=== PATIENT | female | born 1945 | race Caucasian/White ===

== ENCOUNTER → 2016-12-17 | Outpatient (CLI) | payer MEDICARE ==
--- NOTE | 2016-12-17 10:59 | XR ---
EXAMINATION TYPE: XR chest 2V DATE OF EXAM: 12/17/2016 10:52 AM COMPARISON: March 11, 2010 HISTORY: Shortness of breath TECHNIQUE: Frontal and lateral views of the chest are obtained. FINDINGS: Scattered senescent parenchymal changes noted. Hyperinflation compatible with COPD. No evidence for infiltrate. No evidence for atelectasis. Heart size is stable. Mediastinal structures are stable and grossly unremarkable. No evidence for hilar prominence. Degenerative changes dorsal spine. IMPRESSION: 1. No evidence for acute pulmonary disease.
== END | disposition home or self-care (01) ==
LOC: RADXRMAIN 10:36
PROVIDERS: ATTEND Internal Medicine Pulmonary Disease
DX: R06.02 Shortness of breath (principal); R05 Cough
CPT/HCPCS: 71020

== ENCOUNTER → 2016-12-24 | Outpatient (CLI) | payer MEDICARE ==
[2016-12-24 13:23] LABS: Anion Gap 14 mmol/L; Blood Urea Nitrogen 15 mg/dL (7-17); Calcium 9.8 mg/dL (8.4-10.2); Carbon Dioxide 23 mmol/L (22-30); Chloride 109 mmol/L (98-107); Glucose 111 mg/dL (74-99); Non-African American GFR(MDRD) 52 (>60 ml/min/1.73 sqM); Potassium 4.6 mmol/L (3.5-5.1); Sodium 146 mmol/L (137-145)
[2016-12-24 15:37] LABS: 24-hr Urine Specific Gravity 1.007 (1.001-1.035)
== END | disposition home or self-care (01) ==
LOC: LABWHC1 12:10
PROVIDERS: ATTEND Family Medicine
DX: N18.9 Chronic kidney disease, unspecified (principal)
CPT/HCPCS: 36415; 80048; 81050; 82575; 84156

== ENCOUNTER → 2017-02-26 | Outpatient (CLI) | payer MEDICARE ==
--- NOTE | 2017-02-26 11:22 | CT ---
EXAMINATION TYPE: CT chest wo con DATE OF EXAM: 02/26/2017 COMPARISON: 01/04/2013 HISTORY: SOB CT DLP: 365.[address] of the chest was performed with lung and mediastinal window settings submitted. The la ck of contrast limits evaluation of the vascular, mediastinal and parenchymal structures including th e upper abdomen. LUNGS: The lungs are clear and free of infiltrate. No atelectasis. No pulmonary nodule or mass is de tected. No pleural effusion. Hyperinflation compatible with COPD. Upper lobe emphysematous changes. Mild scattered subpleural fibrosis at the lung bases. MEDIASTINUM/RIAN: Thoracic aorta is of normal caliber with limited evaluation given lack of contrast . The heart is not enlarged. No evidence for mediastinal mass. No lymph nodes greater than 1cm. UPPER ABDOMEN: No significant abnormality is seen. OTHER: No significant other abnormality. IMPRESSION: 1. Stable chest with emphysematous changes noted as well as mild basilar subpleural fibrosis.
== END | disposition home or self-care (01) ==
LOC: RADCTMAIN 09:43
PROVIDERS: ATTEND Internal Medicine Pulmonary Disease
DX: J43.9 Emphysema, unspecified (principal); J84.10 Pulmonary fibrosis, unspecified
CPT/HCPCS: 71250

== ENCOUNTER → 2018-11-08 | Outpatient (CLI) | payer MEDICARE ==
[2018-11-08 18:36] LABS: Calcium 9.8 mg/dL (8.7-10.3); Potassium 4.4 mmol/L (3.5-5.5)
== END | disposition home or self-care (01) ==
LOC: LABWHC1 10:42
PROVIDERS: ATTEND Internal Medicine Interventional Cardiology
DX: I34.0 Nonrheumatic mitral (valve) insufficiency (principal)
CPT/HCPCS: 36415; 80048

== ENCOUNTER → 2018-11-08 | Outpatient (CLI) | payer MEDICARE ==
[2018-11-08 11:39] LABS: HCT 43.1 % (34.0-46.0); HGB 14.1 gm/dL (11.4-16.0); MCH 31.5 pg (25.0-35.0); MCHC 32.7 g/dL (31.0-37.0); MCV 96.3 fL (80.0-100.0); Mean Platelet Volume 9.2; Platelet Count 214 k/uL (150-450); RBC 4.47 m/uL (3.80-5.40); RDW 14.8 % (11.5-15.5); WBC 8.5 k/uL (3.8-10.6)
== END | disposition home or self-care (01) ==
LOC: LABPAT 10:39
PROVIDERS: ATTEND Internal Medicine Interventional Cardiology
DX: Z01.812 Encounter for preprocedural laboratory examination (principal); I34.0 Nonrheumatic mitral (valve) insufficiency; I48.1 Persistent atrial fibrillation; I10 Essential (primary) hypertension
CPT/HCPCS: 36415; 85027

== ENCOUNTER 2018-11-23 06:19 | Day surgery (SDC) | payer MEDICARE ==
[2018-11-09 14:29] VITALS: BMI 26.7
[~2018-11-23 06:19] MED LIST: ALPRAZolam 0.25 MG TAB PO PRN; ALPRAZolam 0.5 MG TAB PO PRN; NITROGLYCERIN SL TABS 0.4 MG TAB SUBLINGUAL PRN; SODIUM CHLORIDE 0.9% 1,000 ML in EMPTY BAG 1 BAG IV ONE
[2018-11-23] MEDS ORDERED: ASPIRIN 325 MG TAB PO ONE (07:00)
[2018-11-23] MEDS ORDERED: ATORVASTATIN 80 MG TAB PO ONE (07:00)
[2018-11-23 07:04] VITALS: TEMP 98.3
[2018-11-23] MEDS ORDERED: IV FLUID CONTINUATION 950 ML IV ONE (07:17)
[2018-11-23] MEDS ORDERED: BENZOCAINE SPRAY 1 CAN MUCOUS MEM ONE (07:25)
[2018-11-23] MEDS ORDERED: MIDAZOLAM 2 MG/2 ML VIAL IV ONE ×2 (07:27→07:30)
[2018-11-23] MEDS ORDERED: fentaNYL (PF) 50 MCG/ML 2 ML AMP IV ONE (07:28)
[2018-11-23 07:36] VITALS: PULSE 113
[2018-11-23] MEDS ORDERED: IV FLUID CONTINUATION 850 ML IV ONE (07:46)
[2018-11-23] MEDS ORDERED: LIDOCAINE 1% INJ 10MG/ML (20 ML MDV) SQ ONE (07:55)
--- NOTE | 2018-11-23 08:22 | ECHOT ---
TRANSESOPHAGEAL ECHOCARDIOGRAM INDICATION: Evaluation of mitral valve. PROCEDURE: After explaining the procedure to the patient, its risks and the complications, her blood pressure, heart rate, O2 saturation was monitored. The throat was sprayed with Cetacaine. She received 3 mg intravenous Versed, 50 mcg intravenous fentanyl. The probe was introduced into the esophagus without difficulty. Images were obtained. Following that, the probe was removed. There was no immediate complication. FINDINGS: Biatrial enlargement was noted. Spontaneous contrast was noted. Left atrial appendage is normal. Left ventricular size and systolic function normal. The aortic valve is a tricuspid valve appears to be normal. Mitral valve is mildly thickened. Tricuspid valve is normal. A pulmonic valve is normal. Descending thoracic aorta appears to be normal. Contrast bubble study revealed no shunting across the interatrial septum. There was no pericardial effusion. Doppler pulse wave and color Doppler obtained and revealed a moderate mitral with moderate to severe tricuspid regurgitation. The estimated right ventricular systolic pressure of 49 mmHg consistent with moderate pulmonary hypertension. There was trace of pulmonic regurgitation and evidence of patent foramen ovale with [id number] shunting was noted. CONCLUSION: 1. Biatrial enlargement with spontaneous contrast and normal appearance of the left atrial appendage. 2. Normal left ventricular size and systolic function. 3. Mild thickening of the mitral valve leaflets with moderate central mitral regurgitation. 4. Moderate to severe tricuspid regurgitation with moderate pulmonary hypertension. 5. Trace pulmonic regurgitation. 6. Patent foramen ovale with [id number] shunting. 7. No pericardial effusion. MMODL / IJN: [id number] /
[2018-11-23 08:25] LABS: O2 Sat Blood Gas 58.7 %
[2018-11-23 08:28] LABS: O2 Sat Blood Gas 61.4 %
[2018-11-23] MEDS ORDERED: IOPAMIDOL-370 100ML BTL INJ ONE (08:29)
[2018-11-23 08:30] LABS: O2 Sat Blood Gas 90.7 %
[2018-11-23] MEDS ORDERED: RX INFO: IV CONTRAST WAS GIVEN 1 EACH MISC MISCELLANE PRN (08:33)
[2018-11-23] MEDS ORDERED: METOPROLOL TARTRATE 25 MG TAB PO STA (08:44)
[2018-11-23] MEDS ORDERED: SODIUM CHLORIDE 0.9% 1,000 ML IV SCH (08:45)
--- NOTE | 2018-11-23 09:08 | CC ---
CARDIAC CATHETERIZATION REPORT Mrs. Hinton is a 73-year-old female with known history of hypertension, hyperlipidemia, who has been complaining of progressive dyspnea and underwent an echocardiogram revealed moderate to severe mitral regurgitation with severe tricuspid regurgitation. In view of that, recommendation was made regarding cardiac catheterization. The procedure as well as the risks and the complications were discussed with the patient who is in full understanding and agreement. PROCEDURE: Patient was brought to the field laborer in a fasting semi-sedated state after receiving fentanyl and Benadryl and achieving moderate conscious sedated state. Using Xylocaine anesthesia in the Seldinger technique, a 6-Nicaraguan sheath was introduced in the right femoral artery an 8-[place]icar[place]uan sheath in the right femoral vein. Right heart catheterization was performed using Hull-Sena catheter. Multiple pressures and samples were obtained. Cardiac output by thermodilution was calculated. Following that, selective right and left angiography was performed using 6-[place]icar[place]uan 4 bend right and left Jack catheter. Multiple views of the coronary artery including hemiaxial views obtained. Following that, a 6-[place]uan tight pigtail catheter introduced in the left ventricle and a 30-degree LIMON view of the left ventricle was obtained. Following the catheter and sheaths were removed. Hemostasis was obtained with compression of the right groin. There were no immediate complications. Patient is returned to her room in stable condition. FINDINGS: HEMODYNAMICS: Right atrial saturation 61%, pulmonary artery saturation 59%, femoral artery saturation 91%. Cardiac output by Jean-Claude 3.4 L/minute and by thermodilution 4.4 L/minute. Pulmonary artery systolic pressure of 48 with a diastolic of 18 and a mean of 28 mmHg. Her right ventricle systolic pressure of 50 with an end-diastolic of 5. Right atrial V-wave 5 with a mean of 4 mmHg. There was no gradient across the aortic valve. The left ventricular end-diastolic pressure was 12 to 16 mmHg. CORONARIES: LEFT MAIN: This is a short size vessel, bifurcating left circumflex, left anterior descending artery. Left main coronary artery has no evidence of high-grade stenosis. LEFT ANTERIOR DESCENDING ARTERY: This is a large-sized vessel tapers down distal third, giving rise to 2 diagonal branches. Left anterior descending artery as well as branches have no evidence of obstructive coronary artery disease. LEFT CIRCUMFLEX. This is a nondominant vessel giving rise to 3 obtuse marginal branches. The second and third one are large in caliber. The left circumflex and its branches have no evidence of obstructive coronary artery disease. RIGHT CORONARY ARTERY: This is a large dominant vessel bifurcating distally to PDA and posterolateral segment and branches. The right coronary artery in the mid segment has a 10% plaque. The rest of the vessel has no high-grade stenosis. LEFT VENTRICULOGRAM: Left ventriculogram was performed in 30-degree LIMON view and revealed 2 to 3+ mitral regurgitation, worsened by arrhythmia. CONCLUSION: 1. Minimal intimal disease involving the mid right coronary artery. 2. Normal left ventricular size and systolic function with 2 to 3+ mitral regurgitation. 3. Mild to moderate pulmonary hypertension. RECOMMENDATION: In view of finding anatomy, I recommend to continue the present medical regimen at this time and close followup of her mitral valve. Those findings and recommendation were discussed with the patient and her family and they are in full understanding and agreement. Duration of procedure was 33 minutes. EMILY / MAURICE: [id number] /
[2018-11-23 14:27] VITALS: RESP 20
[2018-11-23 16:24] VITALS: BP 162/89
[2018-11-24] MEDS ORDERED: ALBUTEROL NEBULIZED 2.5 MG/3 ML INHALATION SCH (08:00)
[2018-11-24] MEDS ORDERED: ATORVASTATIN 40 MG TAB PO SCH (09:00)
[2018-11-24] MEDS ORDERED: METOPROLOL TARTRATE 25 MG TAB PO SCH (09:00)
[2018-11-24] MEDS ORDERED: PANTOPRAZOLE 40 MG TABLET PO SCH (09:00)
[2018-11-24] MEDS ORDERED: FUROSEMIDE 20 MG TAB PO SCH (09:00)
== END 2018-11-23 16:04 | disposition home or self-care (01) ==
LOC: CATHCVL 06:19
PROVIDERS: ATTEND Internal Medicine Interventional Cardiology
DX: I08.1 Rheumatic disorders of both mitral and tricuspid valves (principal); I48.1 Persistent atrial fibrillation; I25.10 Atherosclerotic heart disease of native coronary artery without angina pectoris; I27.20 Pulmonary hypertension, unspecified; Q21.1 Atrial septal defect; E78.5 Hyperlipidemia, unspecified; I10 Essential (primary) hypertension; Z72.0 Tobacco use; Z79.899 Other long term (current) drug therapy; Z79.01 Long term (current) use of anticoagulants
CPT/HCPCS: 93312; 93320; 93325; 93456; 85018; 82810; C1769 ×2; C1894 ×2; J2250; J2001; J3010; Q9967; 93460

== ENCOUNTER → 2019-04-11 | Outpatient (CLI) | payer MEDICARE ==
[2019-04-11 20:06] LABS: African American GFR (CKD) 51.2 (60.0-200.0)
== END ==
LOC: LABWHC1 12:07
PROVIDERS: ATTEND Family Medicine
DX: Z01.812 Encounter for preprocedural laboratory examination (principal)
CPT/HCPCS: 36415; 82565; 84520

== ENCOUNTER → 2019-04-14 | Outpatient (CLI) | payer MEDICARE | END | disposition home or self-care (01) | LOC: RADCTMAIN 13:16 | PROVIDERS: ATTEND Family Medicine | DX: Z53.9 Procedure and treatment not carried out, unspecified reason (principal) ==

== ENCOUNTER → 2019-04-21 | Outpatient (CLI) | payer MEDICARE ==
--- NOTE | 2019-04-22 22:57 | CT ---
EXAMINATION TYPE: CT facial bones wo con DATE OF EXAM: 04/21/2019 COMPARISON: 01/12/2011 HISTORY: 74-year-old female unspecified Chronic sinusitis CT DLP: 599 mGycm Automated exposure control for dose reduction was used. TECHNIQUE: Noncontrast axial views of the paranasal sinuses were obtained. Coronal reconstructions pe rformed. FINDINGS: Mucosal retention cyst within the floors of the maxillary sinuses with mild additional scattered muco nanci thickening. Prior resection changes extending into the left nasal cavity and medial wall of the left maxillary si nus as well as additional resection extending up into the left ethmoid air cells. There is similar th e his sense/resection or absence of the left medial orbital wall with stable bulging of intervertebra l contents into the left ethmoid air cells. Prior bifrontal craniotomy. Moderate mucosal thickening left sphenoid sinus and near complete opacification persisting within the right frontal sinus. There is no air-fluid level. There is some reactive yeny- osteogenesis involving the left-sided paranasal sinus ewing, similar to p rior exam. Leftward bowing of the nasal septum. Stable encephalomalacia along the anterior paramedian floor of the frontal lobes. Mastoid air cells and middle ear cavities are well pneumatized. Reformatted images confirm above findings. IMPRESSION: 1. Extensive postsurgical changes redemonstrated along the frontal region with bifrontal craniotomies and underlying encephalomalacia. 2. Additional postsurgical change involving the left-sided paranasal sinuses with prior left ethmoide ctomy eliminating the roof and lateral wall of left ethmoid sinus. 2. Stable mild to moderate chronic maxillary sinus and moderate chronic left sphenoid sinus disease. Continued near complete opacification of the right frontal sinus. No significant change from prior.
== END | disposition home or self-care (01) ==
LOC: RADCTMAIN 09:14
PROVIDERS: ATTEND Family Medicine
DX: G93.89 Other specified disorders of brain (principal); J32.0 Chronic maxillary sinusitis; J32.3 Chronic sphenoidal sinusitis; J34.89 Other specified disorders of nose and nasal sinuses; Z98.890 Other specified postprocedural states
CPT/HCPCS: 70486

== ENCOUNTER 2019-06-29 06:18 | Inpatient (IN) | payer MEDICARE ==
--- NOTE | 2019-06-29 06:25 | ED ---
SOB HPI <Nereida Roberts - Last Filed: 06/29/19 08:25> <Theo Boatengssayush Suárez - Last Filed: 07/02/19 04:36> <Mari Limonah Arslan - Last Filed: 07/07/19 09:54> - General Chief Complaint: Shortness of Breath Stated Complaint: DESIREE Time Seen by Provider: 06/29/19 06:25 - History of Present Illness Initial Comments: 74yo female with history of valvular disease, atrial fibrillation, HTN and HLD presenting to the ER today for cc of SOB x 3 hours. History obtained from both and patient, history limited due to patient SOB. Family is a poor historian. Patient states she has been short of breath since 3 AM. Family memb er states that yesterday patient had no complaints of chest pain or shortness of breath. He did not know any abnormal behaviors. She states she woke up at 3 AM stating she was short of breath this continued for 3 hours until he presented emergency department for further evaluation. Upon arrival patient is significantly SOB, profound hypoxia and elevation of HR with some pallor/cyanosis noted on gross inspection. Patient is alert and oriented x3 and answering questions appropriately. (Nereida Roberts) - Related Data Home Medications Medication Instructions Recorded Confirmed Atorvastatin Calcium [Lipitor] 40 mg PO DAILY 01/22/16 06/29/19 Pantoprazole [Protonix] 40 mg PO DAILY 01/22/16 06/29/19 Apixaban [Eliquis] 5 mg PO BID 11/09/18 06/29/19 Metoprolol Tartrate [Lopressor] 25 mg PO BID 06/29/19 06/29/19 Sodium Chloride [Saline Nasal 1 spray EA NOSTRIL DAILY PRN 06/29/19 06/29/19 [place]] Previous Rx's Medication Instructions Recorded Albuterol Sulfate [Proair Hfa] 2 puff INHALATION DAILY PRN #0 07/04/19 Furosemide [Lasix] 20 mg PO DAILY #14 tab 07/04/19 Ipratropium-Albuterol Nebulize 3 ml INHALATION RT-QID #120 07/04/19 [Duoneb 0.5 mg-3 mg/3 ml Soln] ampul.neb Allergies Allergy/AdvReac Type Severity Reaction Status Date / Time No Known Allergies Allergy Verified 06/29/19 07:25 Review of Systems ROS Other: All systems not noted in ROS Statement are negative. <Nereida Roberts Carmen - Last Filed: 06/29/19 08:25> ROS Other: All systems not noted in ROS Statement are negative. <Nathalie Boateng P - Last Filed: 07/02/19 04:36> ROS Other: All systems not noted in ROS Statement are negative. <RemigioMaricruz peitt Arslan - Last Filed: 07/07/19 09:54> ROS Statement: Those systems with pertinent positive or pertinent negative responses have been documented in the HPI. Past Medical History Past Medical History: GERD/Reflux, Hyperlipidemia, Hypertension Additional Past Medical History / Comment(s): Irreg HR,heart murmur,SOB History of Any Multi-Drug Resistant Organisms: None Reported Past Surgical History: Hysterectomy, Tonsillectomy Additional Past Surgical History / Comment(s): removal sinus tumor,dixon bunnion,trigger fingers,dixon elbows pair Past Anesthesia/Blood Transfusion Reactions: No Reported Reaction Additional Past Anesthesia/Blood Transfusion Reaction / Comment(s): no hx blood transfusion Smoking Status: Former smoker - Past Family History Mother Family Medical History: Cancer Additional Family Medical History / Comment(s): bowel Father Additional Family Medical History / Comment(s): emphysema <Nereida Roberts Carmen - Last Filed: 06/29/19 08:25> - Past Family History Mother Family Medical History: Cancer Additional Family Medical History / Comment(s): bowel Father Family Medical History: COPD Additional Family Medical History / Comment(s): emphysema Brother(s) Family Medical History: Cancer Additional Family Medical History / Comment(s): Bowel cancer. <Cristina Boatengica P - Last Filed: 07/02/19 04:36> General Exam <Nereida Roberts L - Last Filed: 06/29/19 08:25> - General Exam Comments Initial Comments: General: The patient is awake and alert, in respiratory distress. Eye: +3 mm pupils are equal, round and reactive to light, extra-ocular movements are intact. No nystagmus. There is normal conjunctiva bilaterally. No signs of icterus. Ears, nose, mouth and throat: There are moist mucous membranes and no oral lesions. Neck: The neck is supple, there is no tenderness . JVD noted. B/l lower extremity edema., pitting +1 Cardiovascular: There is increased pulse rate and rhythm. No murmur, rub or gallop is appreciated. Respiratory: labored breathing with cyanosis, abdominal breathing and retraction. Rales. No wheezing, stridor or rhonchi noted. Gastrointestinal: Radial pulses equal bilaterally 2+. Neurological: A&O x 3. CN II-XII intact, There are no obvious motor or sensory deficits. Coordination appears grossly intact. Speech is normal. Skin: Skin is warm, dry, pale. No lesions noted. Psychiatric: Anxious (Nereida Roberts) Course <Nereida Roberts - Last Filed: 06/29/19 08:25> Vital Signs 06/29/19 06/29/19 06/29/19 06:25 06:27 06:34 Temperature 99.9 F H Pulse Rate 116 H 125 H Respiratory 28 H 30 H 30 H Rate Blood Pressure 226/116 219/106 O2 Sat by Pulse 52 L Oximetry 06/29/19 06/29/19 06/29/19 06:40 06:43 06:53 Temperature Pulse Rate 114 H 110 H 111 H Respiratory 32 H 24 20 Rate Blood Pressure 186/107 180/105 159/90 O2 Sat by Pulse 94 L 100 98 Oximetry 06/29/19 09:02 Temperature Pulse Rate 100 Respiratory 22 Rate Blood Pressure 135/89 O2 Sat by Pulse 96 Oximetry - Reevaluation(s) Reevaluation #1: Patient intially evaluated, significant DESIREE, notified attending Dr. Boateng who evaluated patient at bedside. BiPap ordered, portable chest. Nurses at besides obtaining IV access and EKG. 06/29/19 06:24 (Nereida Roberts) Reevaluation #2: After 2 sublingual nitroglycerin tablets, patient appears in less distress. Respiratory at beside applying bipap. 06/29/19 06:43 (Nereida Roberts) Reevaluation #3: During BiPap patient able to speak complete sentence more thorough history obtained. Patient denies CP, back pain, known leg swelling in the past week or today. SOB patient states chronic increasing past 2-3 days but peaked at 3AM. States compliant with her anticoagulation therapy 06/29/19 06:47 (Nereida Roberts) Medical Decision Making - Lab Data Result diagrams: 06/29/19 06:29 06/29/19 06:29 <Nereida Roberts - Last Filed: 06/29/19 08:25> - Lab Data Result diagrams: 06/30/19 15:50 07/01/19 05:39 <Nathalie Boateng - Last Filed: 07/02/19 04:36> - Lab Data Result diagrams: 07/02/19 05:55 07/02/19 05:55 <Maricruz Limon - Last Filed: 07/07/19 09:54> - Medical Decision Making 74yo female presenting today for shortness of breath since 3 AM history of atrial fibrillation profound hypoxia and hypertension upon arrival. Concern for flash pulmonary edema BiPAP initiated. Chest x-ray consistent with moderate pulmonary edema. Patient had significant improvement in work of breathing after 2 sublingual nitrates prior to the BiPAP initiation. After BiPAP patient work of breathing normalized, she appears in less distress, pink in color. Didn't im provement in hypoxia and blood pressure. At this time we'll admit patient on BiPAP with when necessary nitroglycerin and cardiology consultation. Patient is agreeable to admission admitting provider accepted admission after speaking wtih Dr. Limon although initial management was performed with Dr. Boateng. (Nereida Roberts) I personally saw and evaluated the patient immediately upon arrival to the emergency department. Patient was in moderate respiratory distress, was tachypneic, tachycardic, profoundly hypoxic with oxygen saturations in the 50s with a good waveform. Physical exam is concerning for flash pulmonary edema. I agreed with PAs plan for workup and treatment with BiPAP and nitro. I reevaluated the patient after she received nitro and had been on BiPAP for approximately 10 minutes. At that time the patient's color had improved, respiratory rate decreased, tachycardia decreased, patient much more comfortable and with no complaints. I agree with plan for admission (Nathalie Boateng) I discussed the case with the admitting physician who accepted admission of the patient. (Maricruz Limon) - Lab Data Lab Results 06/29/19 06/29/19 06/29/19 Range/Units 06:29 06:29 06:29 WBC 21.6 H (3.8-10.6) k/uL RBC 4.50 (3.80-5.40) m/uL Hgb 15.0 (11.4-16.0) gm/dL Hct 45.0 (34.0-46.0) % MCV 99.9 (80.0-100.0) fL MCH 33.3 (25.0-35.0) pg MCHC 33.3 (31.0-37.0) g/dL RDW 14.7 (11.5-15.5) % Plt Count 261 (150-450) k/uL Neutrophils % 89 % Lymphocytes % 6 % Monocytes % 2 % Eosinophils % 2 % Basophils % 1 % Neutrophils # 19.2 H (1.3-7.7) k/uL Lymphocytes # 1.4 (1.0-4.8) k/uL Monocytes # 0.4 (0-1.0) k/uL Eosinophils # 0.3 (0-0.7) k/uL Basophils # 0.2 (0-0.2) k/uL Macrocytosis Slight PT (9.0-12.0) sec INR (<1.2) APTT (22.0-30.0) sec D-Dimer (<0.60) mg/L FEU Sodium 146 H (137-145) mmol/L Potassium 4.1 (3.5-5.1) mmol/L Chloride 112 H (98-107) mmol/L Carbon Dioxide 17 L (22-30) mmol/L Anion Gap 17 mmol/L BUN 17 (7-17) mg/dL Creatinine 1.19 H (0.52-1.04) mg/dL Est GFR (CKD-EPI)AfAm 51 (>60 ml/min/1.73 sqM) Est GFR (CKD-EPI)NonAf 44 (>60 ml/min/1.73 sqM) Glucose 173 H (74-99) mg/dL Lactic Ac Sepsis Rflx Plasma Lactic Acid Bony (0.7-2.0) mmol/L Calcium 9.5 (8.4-10.2) mg/dL Magnesium 1.8 (1.6-2.3) mg/dL Total Bilirubin 1.4 H (0.2-1.3) mg/dL AST 32 (14-36) U/L ALT 43 (9-52) U/L Alkaline Phosphatase 79 (38-126) U/L Troponin I (0.000-0.034) ng/mL NT-Pro-B Natriuret Pep 1540 pg/mL Total Protein 7.5 (6.3-8.2) g/dL Albumin 4.7 (3.5-5.0) g/dL Procalcitonin (0.02-0.09) ng/mL Influenza Type A RNA (Not Detectd) Influenza Type B (PCR) (Not Detectd) 06/29/19 06/29/19 06/29/19 Range/Units 06:29 06:29 06:29 WBC (3.8-10.6) k/uL RBC (3.80-5.40) m/uL Hgb (11.4-16.0) gm/dL Hct (34.0-46.0) % MCV (80.0-100.0) fL MCH (25.0-35.0) pg MCHC (31.0-37.0) g/dL RDW (11.5-15.5) % Plt Count (150-450) k/uL Neutrophils % % Lymphocytes % % Monocytes % % Eosinophils % % Basophils % % Neutrophils # (1.3-7.7) k/uL Lymphocytes # (1.0-4.8) k/uL Monocytes # (0-1.0) k/uL Eosinophils # (0-0.7) k/uL Basophils # (0-0.2) k/uL Macrocytosis PT 11.0 (9.0-12.0) sec INR 1.0 (<1.2) APTT 22.7 (22.0-30.0) sec D-Dimer 0.51 (<0.60) mg/L FEU Sodium (137-145) mmol/L Potassium (3.5-5.1) mmol/L Chloride (98-107) mmol/L Carbon Dioxide (22-30) mmol/L Anion Gap mmol/L BUN (7-17) mg/dL Creatinine (0.52-1.04) mg/dL Est GFR (CKD-EPI)AfAm (>60 ml/min/1.73 sqM) Est GFR (CKD-EPI)NonAf (>60 ml/min/1.73 sqM) Glucose (74-99) mg/dL Lactic Ac Sepsis Rflx Plasma Lactic Acid Bony 4.6 H* (0.7-2.0) mmol/L Calcium (8.4-10.2) mg/dL Magnesium (1.6-2.3) mg/dL Total Bilirubin (0.2-1.3) mg/dL AST (14-36) U/L ALT (9-52) U/L Alkaline Phosphatase (38-126) U/L Troponin I <0.012 (0.000-0.034) ng/mL NT-Pro-B Natriuret Pep pg/mL Total Protein (6.3-8.2) g/dL Albumin (3.5-5.0) g/dL Procalcitonin (0.02-0.09) ng/mL Influenza Type A RNA (Not Detectd) Influenza Type B (PCR) (Not Detectd) 06/29/19 06/29/19 06/29/19 Range/Units 06:29 07:30 08:20 WBC (3.8-10.6) k/uL RBC (3.80-5.40) m/uL Hgb (11.4-16.0) gm/dL Hct (34.0-46.0) % MCV (80.0-100.0) fL MCH (25.0-35.0) pg MCHC (31.0-37.0) g/dL RDW (11.5-15.5) % Plt Count (150-450) k/uL Neutrophils % % Lymphocytes % % Monocytes % % Eosinophils % % Basophils % % Neutrophils # (1.3-7.7) k/uL Lymphocytes # (1.0-4.8) k/uL Monocytes # (0-1.0) k/uL Eosinophils # (0-0.7) k/uL Basophils # (0-0.2) k/uL Macrocytosis PT (9.0-12.0) sec INR (<1.2) APTT (22.0-30.0) sec D-Dimer (<0.60) mg/L FEU Sodium (137-145) mmol/L Potassium (3.5-5.1) mmol/L Chloride (98-107) mmol/L Carbon Dioxide (22-30) mmol/L Anion Gap mmol/L BUN (7-17) mg/dL Creatinine (0.52-1.04) mg/dL Est GFR (CKD-EPI)AfAm (>60 ml/min/1.73 sqM) Est GFR (CKD-EPI)NonAf (>60 ml/min/1.73 sqM) Glucose (74-99) mg/dL Lactic Ac Sepsis Rflx Y Plasma Lactic Acid Bony (0.7-2.0) mmol/L Calcium (8.4-10.2) mg/dL Magnesium (1.6-2.3) mg/dL Total Bilirubin (0.2-1.3) mg/dL AST (14-36) U/L ALT (9-52) U/L Alkaline Phosphatase (38-126) U/L Troponin I (0.000-0.034) ng/mL NT-Pro-B Natriuret Pep pg/mL Total Protein (6.3-8.2) g/dL Albumin (3.5-5.0) g/dL Procalcitonin 0.04 (0.02-0.09) ng/mL Influenza Type A RNA Not Detected (Not Detectd) Influenza Type B (PCR) Not Detected (Not Detectd) - EKG Data EKG Comments: Ventricular rate 97 bpm, QRS duration 78 ms, QT/QTC 358/[address] elevation or depression. Rhythm atrial fibrillation. Nonspecific T-wave abnormality. EKG personally interpreted and reviewed by attending provider (Nereida Roberts) Disposition Is patient prescribed a controlled substance at d/c from ED?: No Time of Disposition: 08:20 Decision to Admit Reason: Admit from EC Decision Date: 06/29/19 Decision Time: 08:21 <Nereida Roberts - Last Filed: 06/29/19 08:25> <Nathalie Boateng - Last Filed: 07/02/19 04:36> <Maricruz Limon - Last Filed: 07/07/19 09:54> Clinical Impression: Pulmonary edema, Hypertensive emergency, History of atrial fibrillation, Elevated brain natriuretic peptide (BNP) level Disposition: ADMITTED IP TO THIS HOSP Condition: Stable
[2019-06-29] MEDS: NITROGLYCERIN SL TABS 0.4 MG TAB SUBLINGUAL PRN ×3 (06:31→06:41)
[2019-06-29 06:48] LABS: Basophils # (A) 0.2 k/uL (0-0.2); Basophils % (A) 1 %; Eosinophils # (A) 0.3 k/uL (0-0.7); Eosinophils % (A) 2 %; Lymphocytes # (A) 1.4 k/uL (1.0-4.8); Lymphocytes % (A) 6 %; MCH 33.3 pg (25.0-35.0); MCHC 33.3 g/dL (31.0-37.0); MCV 99.9 fL (80.0-100.0); Macrocytosis Slight; Mean Platelet Volume 8.2; Monocytes # (A) 0.4 k/uL (0-1.0); Monocytes % (A) 2 %; Neutrophils # (A) 19.2 k/uL (1.3-7.7); Neutrophils % (A) 89 %; Platelet Count 261 k/uL (150-450); RDW 14.7 % (11.5-15.5); WBC 21.6 k/uL (3.8-10.6)
--- NOTE | 2019-06-29 06:49 | XR ---
EXAMINATION TYPE: XR chest 1V portable DATE OF EXAM: 06/29/2019 COMPARISON: 12/17/2016 HISTORY: Cough TECHNIQUE: Single frontal view of the chest is obtained. FINDINGS: There is moderate pulmonary edema. There is no pleural effusion. There are chest leads. He art is top normal in size. IMPRESSION: There is moderate pulmonary edema that is nonspecific and could relate to RDS or acute h eart failure. This is a change compared to old exam.
[2019-06-29 06:56] LABS: Albumin 4.7 g/dL (3.5-5.0); Calcium 9.5 mg/dL (8.4-10.2); Magnesium 1.8 mg/dL (1.6-2.3); Potassium 4.1 mmol/L (3.5-5.1); Total Bilirubin 1.4 mg/dL (0.2-1.3); Total Protein 7.5 g/dL (6.3-8.2)
[2019-06-29 07:09] LABS: D-Dimer 0.51 mg/L FEU (<0.60); Partial Thromboplastin Time 22.7 sec (22.0-30.0)
[2019-06-29] MEDS ORDERED: NITROGLYCERIN SL TABS 0.4 MG TAB SUBLINGUAL PRN (08:21)
[2019-06-29 09:09] VITALS: BMI 28.9
[2019-06-29] MEDS ORDERED: INFLUENZA VACCINE (6 MOS+) 60 MCG/0.5 ML SYRINGE IM ONE (09:12)
--- NOTE | 2019-06-29 15:13 | P.CRDCN ---
History of Present Illness History of present illness: HISTORY OF PRESENTING ILLNESS This is a pleasant 74-year-old female past medical history significant for chronic persistent atrial fibrillation on long-term anticoagulation, valvul ar heart disease, pulmonary hypertension, hypertension, nonrheumatic mitral regurgitation, patent foramen ovale and dyslipidemia. She presented with is of breath. She follows in the office with Dr. Goldman. We have been asked to see him in consultation for flash pulmonary edema. She is seen and examined resting comfortably in bed in no acute distress. She states she went to sleep last night feeling in normal health. Then woke up at 0300 to use the restroom and felt acutely short of breath. She had no chest pain, dizziness or palpitations. She attempted to manage at home for a few hours however her breathing continued to worsen. On arrival to ED She was noted to be quite hypoxic, tachycardic, low grade temperature, hypertensive and tachypneic. Bipap was initiated and she started to slowly improve. Blood pressure on arrival was 226/116, heart rate 116. Blood pressure has normalized although she remains mildly tachycardic. Pt also states that earlier in the week she feels as though she had aspirated some tea. She states she coughed significantly at the time and has been mildly coughi ng since that time. She did receive one dose of Rocephin in the ED. DIAGNOSTICS EKG reveals atrial fibrillation heart rate 97 with nonspecific changes.. Chest xray moderate pulmonary edema.. Laboratory reviewed, WBC 21.6, hemoglobin 15, platelets 261, d-dimer 0.51, sodium 146, potassium 4.1, creatinine 1.19, lactic acid on admission 4. 6 repeat 1.6, magnesium 1.8, cardiac enzymes negative 2, NT proBNP 1540. Current cardiac medications include Eliquis 5 mg twice a day, atorvastatin 40 mg daily, Lopressor 25 mg twice a day. Most recent cardiac catheterization performed November 2018 revealed 2-3+ mitral regurgitation, normal LV systolic function and minimal nonobstructive disease of the mid RCA. Transesophageal echocardiogram obtained in November 2018 revealed moderate MR, patent foramen ovale, moderate to severe tricuspid regurgitation and moderate pulmonary hypertension. Most recent echocardiogram obtained in the office 05/15/2019 revealed preserved LV systolic function with ejection fraction 50%, moderate MR, moderate to severe TR and pulmonary hypertension with an RVSP of 69 mmHg. REVIEW OF SYSTEMS At the time of my exam: CONSTITUTIONAL: Denies fever or chills. CARDIOVASCULAR: Denies chest pain, shortness of breath, orthopnea, PND or palpitations. RESPIRATORY: Complains of cough. GASTROINTESTINAL: Denies abdominal pain, diarrhea, constipation, nausea or vomiting. MUSCULOSKELETAL: Denies myalgias. NEUROLOGIC: Denies numbness, tingling or weakness. ENDOCRINE: Denies fatigue, weight change, polydipsia or polyurina. GENITOURINARY: Denies burning, hematuria or urgency with micturation. HEMATOLOGIC: Denies history of anemia or bleeding. PHYSICAL EXAMINATION Blood pressure 138/77 heart rate on 06 afebrile and maintaining oxygen saturaiton on nasal cannula. CONSTITUTIONAL: No apparent distress. HEENT: Head is normocephalic. Pupils are equal, round. Sclerae anicteric. Mucous membranes of the mouth are moist. No JVD. No carotid bruit. CHEST EXAMINATION: Course sounds noted on the left, clear on the right. No chest wall tenderness is noted on palpation or with deep breathing. HEART EXAMINATION: Irregular rate and rhythm. S1, S2 heard. Systolic ejection murmur heard at the base and the apex, no gallops or rub. ABDOMEN: Soft, nontender. Positive bowel sounds. EXTREMITIES: 2+ peripheral pulses, trace pitting bilateral lower extremity edema and no calf tenderness. NEUROLOGIC EXAMINATION: Patient is awake, alert and oriented x3. ASSESSMENT Shortness of breath with pulmonary edema, improved with Bipap Leukocytosis Lactic acidosis on admission, improved Non-rheumatic mitral regurgitation Pulmonary hypertension PLAN Resume lopressor, eliquis and atorvastatin as previously ordered. Discontinue aspirin. Recent echo in the office last month has been reviewed, we will not repeat on this admission. Obtain CT chest to assess for possible underlying pneumonia given leukocytosis, low grade temperature and possible aspiration. Check procalcitonin. We will continue to follow and make recommendations accordingly. Thank you kindly for this consultation. Nurse Practitioner note has been reviewed, I agree with a documented findings and plan of care. Patient was seen and examined. Past Medical History Past Medical History: Atrial Fibrillation, GERD/Reflux, Hyperlipidemia, Hypertension, Osteoarthritis (OA) Additional Past Medical History / Comment(s): Mitral regurgitation, mild to mode rate pulmonary HTN-per past medical hx/pt unaware, SOB with exertion, small hiatal hernia, current bilateral lower leg edema, occasional low back pain, arthritis bilateral hands. 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 Past Anesthesia/Blood Transfusion Reactions: No Reported Reaction Additional Past Anesthesia/Blood Transfusion Reaction / Comment(s): no hx blood transfusion Past Psychological History: No Psychological Hx Reported Additional Psychological History / Comment(s): Pt resides with her spouse. She is independent. Smoking Status: Former smoker Past Alcohol Use History: None Reported Additional Past Alcohol Use History / Comment(s): Pt started smoking in 1958 and quit in 1977. She was a 2ppd smoker. Past Drug Use History: None Reported - Past Family History Mother Family Medical History: Cancer Additional Family Medical History / Comment(s): bowel Father Family Medical History: COPD Additional Family Medical History / Comment(s): emphysema Brother(s) Family Medical History: Cancer Additional Family Medical History / Comment(s): Bowel cancer. Medications and Allergies Home Medications Medication Instructions Recorded Confirmed Type Atorvastatin Calcium [Lipitor] 40 mg PO DAILY 01/22/16 06/29/19 History Pantoprazole [Protonix] 40 mg PO DAILY 01/22/16 06/29/19 History Albuterol Sulfate [Proair Hfa] 2 puff INHALATION DAILY 11/09/18 06/29/19 History Apixaban [Eliquis] 5 mg PO BID 11/09/18 06/29/19 History Metoprolol Tartrate [Lopressor] 25 mg PO BID 06/29/19 06/29/19 History Sodium Chloride [Saline Nasal 1 spray EA NOSTRIL DAILY PRN 06/29/19 06/29/19 History Dania] Allergies Allergy/AdvReac Type Severity Reaction Status Date / Time No Known Allergies Allergy Verified 06/29/19 07:25 Physical Exam Vitals: Vital Signs Temp Pulse Pulse Resp BP BP Pulse Ox 06/29/19 12:00 98.1 F 106 H 20 138/77 97 06/29/19 09:02 100 22 135/89 96 06/29/19 06:53 111 H 20 159/90 98 06/29/19 06:43 110 H 24 180/105 100 06/29/19 06:40 114 H 32 H 186/107 94 L 06/29/19 06:34 125 H 30 H 219/106 06/29/19 06:27 30 H 06/29/19 06:25 99.9 F H 116 H 28 H 226/116 52 L Intake and Output 06/28/19 06/29/19 06/29/19 22:59 06:59 14:59 Other: Weight 78.925 kg Results 06/29/19 06:29 06/29/19 06:29 Cardiac Enzymes 06/29/19 06/29/19 06/29/19 Range/Units 06:29 06:29 11:30 AST 32 (14-36) U/L Troponin I <0.012 <0.012 (0.000-0.034) ng/mL Coagulation 06/29/19 Range/Units 06:29 PT 11.0 (9.0-12.0) sec APTT 22.7 (22.0-30.0) sec CBC 06/29/19 Range/Units 06:29 WBC 21.6 H (3.8-10.6) k/uL RBC 4.50 (3.80-5.40) m/uL Hgb 15.0 (11.4-16.0) gm/dL Hct 45.0 (34.0-46.0) % Plt Count 261 (150-450) k/uL Comprehensive Metabolic Panel 06/29/19 Range/Units 06:29 Sodium 146 H (137-145) mmol/L Potassium 4.1 (3.5-5.1) mmol/L Chloride 112 H (98-107) mmol/L Carbon Dioxide 17 L (22-30) mmol/L BUN 17 (7-17) mg/dL Creatinine 1.19 H (0.52-1.04) mg/dL Glucose 173 H (74-99) mg/dL Calcium 9.5 (8.4-10.2) mg/dL AST 32 (14-36) U/L ALT 43 (9-52) U/L Alkaline Phosphatase 79 (38-126) U/L Total Protein 7.5 (6.3-8.2) g/dL Albumin 4.7 (3.5-5.0) g/dL Current Medications Generic Name Dose Route Start Last Admin Trade Name Freq PRN Reason Stop Dose Admin Aspirin 325 mg 06/30/19 09:00 Aspirin PO DAILY JOLENE Nitroglycerin 0.4 mg 06/29/19 08:21 Nitrostat SUBLINGUAL Q5M PRN Chest Pain Intake and Output 06/28/19 06/29/19 06/29/19 22:59 06:59 14:59 Other: Weight 78.925 kg 06/29/19 06:29 06/29/19 06:29
[2019-06-29] MEDS: METOPROLOL TARTRATE 25 MG TAB PO SCH ×2 (16:16→23:24)
[2019-06-29] MEDS: ATORVASTATIN 40 MG TAB PO SCH (16:16)
[2019-06-29] MEDS: APIXABAN 5 MG TAB PO SCH (20:48)
--- NOTE | 2019-06-29 20:59 | CT ---
EXAMINATION TYPE: CT chest wo con DATE OF EXAM: 06/29/2019 COMPARISON: 02/26/2017 HISTORY: SOB. hx of a-fib. CT DLP: 349.3 mGycm. Automated Exposure Control for Dose Reduction was Utilized. TECHNIQUE: CT scan of the thorax is performed without IV contrast. FINDINGS: Within the limitations of noncontrast CT the following observations are made: AIRWAYS: Unremarkable. LUNGS: Moderate marked emphysematous changes bilaterally. No acute pulmonary process. PLEURAL SPACES: Scant bilateral dependent pleural effusions noted. MEDIASTINUM: There is mild cardiomegaly with biatrial enlargement. No pericardial effusion. There is mild right coronary calcifications. No mediastinal mass or adenopathy. SKELETAL: No acute findings. OTHER: No additional significant abnormality is seen. IMPRESSION: 1. Mild cardiomegaly with biatrial enlargement. 2. Moderate marked emphysema. 3. Scant bilateral dependent pleural effusions.
[2019-06-29] MEDS ORDERED: METOPROLOL TARTRATE 25 MG TAB PO SCH (21:00)
[2019-06-29] MEDS ORDERED: ACETAMINOPHEN TAB 325 MG TAB PO PRN (21:57)
[2019-06-30 05:55] LABS: Cholesterol 86 mg/dL (<200); HDL Cholesterol 27 mg/dL (40-60); LDL Cholesterol,Calculated 46 mg/dL (0-99); Triglycerides 64 mg/dL (<150)
[2019-06-30] MEDS ORDERED: ASPIRIN 325 MG TAB PO SCH (09:00)
[2019-06-30] MEDS: PANTOPRAZOLE 40 MG TABLET PO SCH (09:18)
[2019-06-30] MEDS: APIXABAN 5 MG TAB PO SCH ×2 (09:18→21:54)
[2019-06-30] MEDS: ATORVASTATIN 40 MG TAB PO SCH (09:18)
[2019-06-30] MEDS: METOPROLOL TARTRATE 25 MG TAB PO SCH ×2 (09:18→21:54)
[2019-06-30] MEDS ORDERED: IPRATROPIUM-ALBUTEROL 3 ML NEB INHALATION PRN (15:04)
--- NOTE | 2019-06-30 15:38 | PN ---
PROGRESS NOTE Mrs. Hinton is a 74-year-old female with known history of chronic persistent atrial fibrillation, moderate mitral regurgitation, history of chronic obstructive lung disease, who presented to the emergency room with acute dyspnea. She is feeling better today. She has no chest pain. No dizziness. No palpitation. She has underwent a cardiac catheterization performed in November of this year that revealed mild obstructive coronary artery disease with a preserved systolic function and mild to moderate pulmonary hypertension. She denies any dizziness or palpitation. She denies any nausea at this time. She continues to be on Eliquis 5 mg twice a day, Lipitor, metoprolol 25 mg twice a day and Protonix and was started on antibiotics on presentation. PHYSICAL EXAMINATION: Blood pressure 137/70 with a heart in the 80s. LUNGS: With a few scattered wheezes, HEART: Irregular, regular S1, S2. No S3 with systolic murmur at the apex. No diastolic murmur. No rub. ABDOMEN: Soft, nontender. EXTREMITIES: No edema. CT scan of the chest revealed evidence of moderate marked emphysema. IMPRESSION: 1. Symptoms of acute dyspnea, improving. No evidence of acute ischemic event and no evidence of significant fluid overload on physical examination. 2. History of mitral regurgitation, moderate with no significant pulmonary hypertension. 3. Evidence of emphysema on the CT scan of the chest. RECOMMENDATION: From the cardiac standpoint, the patient would benefit from pulmonary evaluation regarding her lung status and depending on her progress, further recommendation will be made. MMODL / IJN: [id number] /
[2019-06-30 16:05] LABS: Basophils # (A) 0.1 k/uL (0-0.2); Basophils % (A) 1 %; Eosinophils # (A) 0.5 k/uL (0-0.7); Eosinophils % (A) 4 %; HCT 38.7 % (34.0-46.0); HGB 12.5 gm/dL (11.4-16.0); Lymphocytes # (A) 1.5 k/uL (1.0-4.8); Lymphocytes % (A) 14 %; MCH 32.3 pg (25.0-35.0); MCHC 32.4 g/dL (31.0-37.0); MCV 99.6 fL (80.0-100.0); Macrocytosis Slight; Monocytes # (A) 0.3 k/uL (0-1.0); Monocytes % (A) 3 %; Neutrophils # (A) 8.3 k/uL (1.3-7.7); Neutrophils % (A) 77 %; Platelet Count 212 k/uL (150-450); RBC 3.88 m/uL (3.80-5.40); RDW 14.7 % (11.5-15.5); WBC 10.8 k/uL (3.8-10.6)
[2019-06-30 16:17] LABS: Calcium 9.1 mg/dL (8.4-10.2); Potassium 3.9 mmol/L (3.5-5.1)
--- NOTE | 2019-06-30 17:16 | P.HPIM ---
History of Present Illness H&P Date: 06/30/19 Chief Complaint: Shortness of breath Patient is a 74-year-old female with a known history of chronic atrial fibrillation on anticoagulation with eliquis, hypertension, hyperlipidemia, mild to moderate pulmonary hypertension, mitral regurgitation and osteoarthritis and other multiple medical problems came to ER with the complaints of shortness of breath worsening since 3 AM last night. Patient woke up to use the restroom and felt shortness of breath. Patient states that about 1 week ago she had a choking episode when she was drinking tea. Since then she's been having issues with her breathing and not for normal after that. Denied any fever or chills. No cough or sputum production. Patient was hypoxic on admission and requiring BiPAP. Denied any other recent illnesses. Patient's blood pressure was 226/116 with heart rate of 116 on admission. Patient did have leukocytosis with WBC count 21.6 on admission. UA negative for infection. Patient received 1 dose of IV Rocephin in the ER.. Chest x-ray showed there is moderate pulmonary edema that is nonspecific and could be related to ordered ESR acute heart failure. There is a change compared to old exam. CT chest showed mild cardiomegaly. With the biatrial enlargement. Mild/moderate to marked emphysema. Scant bilateral dependent pleural effusions. EKG showed atrial fibrillation with heart rate of 97 Hemoglobin 15, platelets 261, d-dimer not elevated at 0.51 Lactic acid 4.6 on admission magnesium 1.8 and troponin 2 negative ProBNP 1540 Influenza negative. Review of Systems Constitutional: Patient denies any fever or chills . No generalized weakness or weight loss. Abdomen: Patient denied nausea vomiting and diarrhea and abdominal pain. Cardiovascular: Patient denies any chest pain no palpitations. Patient does have shortness of breath. Respiratory: patient denied any cough is from production. shortness of breath Neurologic: Patient denied any numbness or tingling headache. Musculoskeletal: Patient denies any complaints of joint swelling or deformity. Skin: Negative Psychiatric: Negative Endocrine: No heat or cold intolerance. No recent weight gain. Genitourinary: No dysuria or hematuria. All other 14 point ROS negative except the above Past Medical History Past Medical History: Atrial Fibrillation, GERD/Reflux, Hyperlipidemia, Hypertension, Osteoarthritis (OA) Additional Past Medical History / Comment(s): Mitral regurgitation, mild to moderate pulmonary HTN-per past medical hx/pt unaware, SOB with exertion, small hiatal hernia, current bilateral lower leg edema, occasional low back pain, arthritis bilateral hands. 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 Past Anesthesia/Blood Transfusion Reactions: No Reported Reaction Additional Past Anesthesia/Blood Transfusion Reaction / Comment(s): no hx blood transfusion Past Psychological History: No Psychological Hx Reported Additional Psychological History / Comment(s): Pt resides with her spouse. She is independent. Smoking Status: Former smoker Past Alcohol Use History: None Reported Additional Past Alcohol Use History / Comment(s): Pt started smoking in 7 and quit in 1977. She was a 2ppd smoker. Past Drug Use History: None Reported - Past Family History Mother Family Medical History: Cancer Additional Family Medical History / Comment(s): bowel Father Family Medical History: COPD Additional Family Medical History / Comment(s): emphysema Brother(s) Family Medical History: Cancer Additional Family Medical History / Comment(s): Bowel cancer. Medications and Allergies Home Medications Medication Instructions Recorded Confirmed Type Atorvastatin Calcium [Lipitor] 40 mg PO DAILY 01/22/16 06/29/19 History Pantoprazole [Protonix] 40 mg PO DAILY 01/22/16 06/29/19 History Albuterol Sulfate [Proair Hfa] 2 puff INHALATION DAILY 11/09/18 06/29/19 History Apixaban [Eliquis] 5 mg PO BID 11/09/18 06/29/19 History Metoprolol Tartrate [Lopressor] 25 mg PO BID 06/29/19 06/29/19 History Sodium Chloride [Saline Nasal 1 spray EA NOSTRIL DAILY PRN 06/29/19 06/29/19 History Cook] Allergies Allergy/AdvReac Type Severity Reaction Status Date / Time No Known Allergies Allergy Verified 06/29/19 07:25 Physical Exam Vitals: Vital Signs Temp Pulse Resp BP Pulse Ox 06/30/19 12:00 98.1 F 89 18 132/74 95 06/30/19 11:37 83 18 06/30/19 08:00 97.6 F 83 18 146/80 97 06/30/19 04:45 97.5 F L 84 20 137/75 97 06/29/19 23:25 98.4 F 86 22 122/69 95 06/29/19 20:35 98.1 F 84 22 135/66 98 06/29/19 16:17 97.6 F 95 18 154/69 96 06/29/19 15:40 106 H 20 Intake and Output 06/29/19 06/30/19 06/30/19 22:59 06:59 14:59 Intake Total 780 Balance 780 Intake: Oral 780 Other: Voiding Method Toilet Toilet # Voids 2 1 1 Weight 77.5 kg PHYSICAL EXAMINATION: Patient is lying in the bed comfortably, no acute distress, awake alert and oriented.. HEENT: Normocephalic. Neck is supple. Pupils reactive. Nostrils clear. Oral cavity is moist. Ears reveal no drainage. Neck reveals no JVD, carotid bruits, or thyromegaly. CHEST EXAMINATION: Trachea is central. Symmetrical expansion. Bibasilar diminished air entry. Lung thomas clear to auscultation and percussion. CARDIAC: Normal S1, S2 with no gallops. Positive systolic murmur . Irregularly irregular rhythm. ABDOMEN: Soft. Bowel sounds normal. No organomegaly. No abdominal bruits. Extremities: 1+ pitting edema. No clubbing or cyanosis Neurologically awake, alert, oriented x3 with well-coordinated movements. No focal deficits noted Skin: No rash or skin lesions. Psychiatric: Coperative. Nonsuicidal Musculoskeletal: No joint swelling or deformity. Normal range of motion. Results CBC & Chem 7: 06/30/19 15:50 06/30/19 15:50 Labs: Abnormal Lab Results - Last 24 Hours (Table) 06/30/19 Range/Units 05:00 HDL Cholesterol 27 L (40-60) mg/dL Microbiology - Last 24 Hours (Table) 06/29/19 06:39 Blood Culture - Preliminary Blood No Growth after 24 hours Thrombosis Risk Factor Assmnt - DVT/VTE Prophylaxis DVT/VTE Prophylaxis: Pharmacologic Prophylaxis ordered - Choose All That Apply Any of the Below Risk Factors Present?: Yes Each Factor Represents 1 point: Heart failure (<1month), Obesity (BMI >25), Swollen legs (current) Other Risk Factors: Yes Each Risk Factor Represents 3 Points: Age 75 years or older Other congenital or acquired thrombophilia - If yes, enter type in comment: No Thrombosis Risk Factor Assessment Total Risk Factor Score: 6 Thrombosis Risk Factor Assessment Level: High Risk Assessment and Plan Assessment: Shortness of breath secondary to pulmonary edema. Requiring BiPAP. Hypertensive emergency with pulmonary edema on admission. Possible acute on chronic CHF with diastolic dysfunction/valvular abnormalities Moderate MR and moderate to severe TR and moderate pulmonary hypertension Chronic atrial fibrillation on anticoagulation with the decrease Leukocytosis. 21.6 on admission. Could be reactive. Chest x-ray and UA negative. Trending down 10.8. Pro-calcitonin not elevated. Hypertension Hyperlipidemia GERD Lactic acidosis on admission resolved now Previous history of smoking DVT prophylaxis patient is already on full anticoagulation Plan: Patient will be continued on DuoNeb's as needed. Continue with oxygen therapy and gradually titrated down to room air. Patient will be continued on metoprolol, aspirin and anticoagulation. Blood pressure improved now. Cardiology is following. Further recommendations based on the clinical course. Follow-up repeat labs tomorrow. Prognosis is guarded. Time with Patient: Greater than 30
[2019-07-01 06:16] LABS: Calcium 9.1 mg/dL (8.4-10.2); Potassium 4.4 mmol/L (3.5-5.1)
[2019-07-01] MEDS: METOPROLOL TARTRATE 25 MG TAB PO SCH ×2 (07:38→19:45)
[2019-07-01] MEDS: PANTOPRAZOLE 40 MG TABLET PO SCH (07:39)
[2019-07-01] MEDS: ATORVASTATIN 40 MG TAB PO SCH (07:39)
[2019-07-01] MEDS: APIXABAN 5 MG TAB PO SCH ×2 (07:39→19:45)
[2019-07-01] MEDS: IPRATROPIUM-ALBUTEROL 3 ML NEB INHALATION SCH ×4 (08:41→19:18)
--- NOTE | 2019-07-01 11:28 | PN ---
PROGRESS NOTE Mrs. Hinton is a 74-year-old female with a history of mitral regurgitation and permanent atrial fibrillation, history of chronic obstructive lung disease, who presented with acute dyspneic event. She is feeling better today. Her breathing is better. She still has some dyspnea when she exerts, but much better since she came in. She denies any dizziness or palpitation. She denies any nausea. She continues to be on Eliquis 5 mg twice a day, Lipitor 40 mg daily, metoprolol tartrate 25 mg twice a day. PHYSICAL EXAMINATION: Blood pressure 142/60 with a heart rate in the 70s. Lungs with decreased air exchange. No wheezes. Heart irregularly irregular S1, S2. No S3 with a holosystolic murmur in the apex. No diastolic murmur. ABDOMEN: Soft nontender. EXTREMITIES: No edema. IMPRESSION: 1. Acute dyspneic episode, possible exacerbated by the hypoxemia. 2. Chronic persistent atrial fibrillation. 3. Mitral regurgitation. 4. Mild coronary artery disease. RECOMMENDATIONS: We will continue on the present therapy. I will add to her regimen low-dose diuretic. I will follow her renal function. Continue to increase her activity. If she is stable, I am hopeful that she will be able to be discharged home by tomorrow. MMODL / IJN: [id number] /
[2019-07-01] MEDS: FUROSEMIDE 20 MG TAB PO SCH (11:29)
--- NOTE | 2019-07-02 00:01 | P.PN ---
Subjective Progress Note Date: 07/01/19 Principal diagnosis: Acute hypoxic respiratory failure secondary to pulmonary edema Hypertensive emergency. Patient is a 74-year-old female with a known history of chronic atrial fibrillation on anticoagulation with eliquis, hypertension, hyperlipidemia, mild to moderate pulmonary hypertension, mitral regurgitation and osteoarthritis and other multiple medical problems came to ER with the complaints of shortness of breath worsening since 3 AM last night. Patient woke up to use the restroom and felt shortness of breath. Patient states that about 1 week ago she had a choki ng episode when she was drinking tea. Since then she's been having issues with her breathing and not for normal after that. Denied any fever or chills. No cough or sputum production. Patient was hypoxic on admission and requiring BiPAP. Denied any other recent illnesses. Patient's blood pressure was 226/116 with heart rate of 116 on admission. Patient did have leukocytosis with WBC count 21.6 on admission. UA negative for infection. Patient received 1 dose of IV Rocephin in the ER.. Chest x-ray showed there is moderate pulmonary edema that is nonspecific and could be related to ordered ESR acute heart failure. There is a change compared to old exam. CT chest showed mild cardiomegaly. With the biatrial enlargement. Mild/moderate to marked emphysema. Scant bilateral dependent pleural effusions. EKG showed atrial fibrillation with heart rate of 97 Hemoglobin 15, platelets 261, d-dimer not elevated at 0.51 Lactic acid 4.6 on admission magnesium 1.8 and troponin 2 negative ProBNP 1540 Influenza negative. 07/01/2019 Patient is currently sitting in the chair and is able to tolerate oral diet. Saturating well on nasal cannula oxygen. Patient was started on Lasix. Blood pressure is fairly controlled today. Patient has been afebrile. No nausea vomiting or abdominal pain. Cardiology is following. Gradually titrate down to room air possible discharge home in the next 24-48 hours. Active Medications Acetaminophen (Tylenol Tab) 650 mg PO Q4HR PRN PRN Reason: Fever and/ or Pain Last Admin: 06/29/19 22:05 Dose: 650 mg Documented by: Albuterol/Ipratropium (Duoneb 0.5 Mg-3 Mg/3 Ml Soln) 3 ml INHALATION RT-QID JOLENE Last Admin: 07/01/19 19:18 Dose: 3 ml Documented by: Apixaban (Eliquis) 5 mg PO BID [facility] Last Admin: 07/01/19 19:45 Dose: 5 mg Documented by: Atorvastatin Calcium (Lipitor) 40 mg PO DAILY [facility] Last Admin: 07/01/19 07:39 Dose: 40 mg Documented by: Furosemide (Lasix) 20 mg PO DAILY [facility] Last Admin: 07/01/19 11:29 Dose: 20 mg Documented by: Metoprolol Tartrate (Lopressor) 25 mg PO BID [facility] Last Admin: 07/01/19 19:45 Dose: 25 mg Documented by: Nitroglycerin (Nitrostat) 0.4 mg SUBLINGUAL Q5M PRN PRN Reason: Chest Pain Pantoprazole Sodium (Protonix) 40 mg PO DAILY [facility] Last Admin: 07/01/19 07:39 Dose: 40 mg Documented by: Objective - Vital Signs Vital signs: Vital Signs Temp 98.1 F 07/01/19 16:00 Pulse 96 07/01/19 19:35 Resp 18 07/01/19 16:00 BP 170/84 07/01/19 16:00 Pulse Ox 95 07/01/19 16:00 Intake & Output 07/01/19 07/01/19 07/02/19 06:59 18:59 06:59 Intake Total 240 598 120 Balance 240 598 120 Weight 77.9 kg Intake: Oral 240 598 120 Other: Voiding Method Toilet # Voids 2 - Exam PHYSICAL EXAMINATION: Patient is lying in the bed comfortably, no acute distress, awake alert and oriented.. HEENT: Normocephalic. Neck is supple. Pupils reactive. Nostrils clear. Oral cavity is moist. Ears reveal no drainage. Neck reveals no JVD, carotid bruits, or thyromegaly. CHEST EXAMINATION: Trachea is central. Symmetrical expansion. Bibasilar diminished air entry. Lung thomas clear to auscultation and percussion. CARDIAC: Normal S1, S2 with no gallops. Positive systolic murmur . Irregularly irregular rhythm. ABDOMEN: Soft. Bowel sounds normal. No organomegaly. No abdominal bruits. Extremities: 1+ pitting edema. No clubbing or cyanosis Neurologically awake, alert, oriented x3 with well-coordinated movements. No focal deficits noted Skin: No rash or skin lesions. Psychiatric: Coperative. Nonsuicidal Musculoskeletal: No joint swelling or deformity. Normal range of motion. - Labs CBC & Chem 7: 06/30/19 15:50 07/01/19 05:39 Labs: Abnormal Lab Results - Last 24 Hours (Table) 07/01/19 Range/Units 05:39 Chloride 110 H (98-107) mmol/L BUN 20 H (7-17) mg/dL Glucose 118 H (74-99) mg/dL Microbiology - Last 24 Hours (Table) 06/29/19 06:39 Blood Culture - Preliminary Blood No Growth after 48 hours Assessment and Plan Assessment: Shortness of breath secondary to pulmonary edema. Requiring BiPAP. Currently on nasal cannula oxygen. Acute hypoxic respiratory failure secondary to pulmonary edema requiring BiPAP on admission. Hypertensive emergency with pulmonary edema on admission. Possible acute on chronic CHF with diastolic dysfunction/valvular abnormalities Moderate MR and moderate to severe TR and moderate pulmonary hypertension Chronic atrial fibrillation on anticoagulation with the decrease Leukocytosis. 21.6 on admission. Could be reactive. Chest x-ray and UA negative. Trending down 10.8. Pro-calcitonin not elevated. Hypertension Hyperlipidemia GERD Lactic acidosis on admission resolved now Previous history of smoking DVT prophylaxis patient is already on full anticoagulation Plan: Patient will be continued on DuoNeb's as needed. Continue with oxygen therapy and gradually titrated down to room air. Continue with Lasix. Patient will be continued on metoprolol, aspirin and anticoagulation. Blood pressure improved now. Cardiology is following. Further recommendations based on the clinical course. Follow-up repeat labs tomorrow. Prognosis is guarded. Time with Patient: Greater than 30
[2019-07-02 06:34] LABS: Basophils # (A) 0.1 k/uL (0-0.2); Basophils % (A) 1 %; Eosinophils # (A) 0.2 k/uL (0-0.7); Eosinophils % (A) 2 %; HGB 12.5 gm/dL (11.4-16.0); Lymphocytes # (A) 1.5 k/uL (1.0-4.8); Lymphocytes % (A) 15 %; MCH 32.6 pg (25.0-35.0); MCV 98.8 fL (80.0-100.0); Mean Platelet Volume 8.3; Monocytes # (A) 0.4 k/uL (0-1.0); Monocytes % (A) 3 %; Neutrophils # (A) 7.9 k/uL (1.3-7.7); Neutrophils % (A) 78 %; Platelet Count 207 k/uL (150-450); RBC 3.85 m/uL (3.80-5.40); RDW 14.7 % (11.5-15.5); WBC 10.1 k/uL (3.8-10.6)
[2019-07-02 06:48] LABS: Calcium 9.4 mg/dL (8.4-10.2); Potassium 4.7 mmol/L (3.5-5.1)
[2019-07-02] MEDS: IPRATROPIUM-ALBUTEROL 3 ML NEB INHALATION SCH ×4 (08:24→19:55)
[2019-07-02] MEDS: APIXABAN 5 MG TAB PO SCH ×2 (08:51→20:48)
[2019-07-02] MEDS: PANTOPRAZOLE 40 MG TABLET PO SCH (08:51)
[2019-07-02] MEDS: METOPROLOL TARTRATE 25 MG TAB PO SCH ×2 (08:51→20:48)
[2019-07-02] MEDS: ATORVASTATIN 40 MG TAB PO SCH (08:51)
[2019-07-02] MEDS: FUROSEMIDE 20 MG TAB PO SCH (08:51)
--- NOTE | 2019-07-02 09:50 | PN ---
PROGRESS NOTE Mrs. Hinton is a 74-year-old female with known history of chronic persistent atrial fibrillation, history of mitral regurgitation, mild coronary artery disease, chronic obstructive lung disease, who presented with symptoms of severe dyspnea. She is feeling better today. Her breathing is better. She denies any chest pain. No dizziness. She continued to be dyspneic when she over exerts herself. She has palpitation after she exerts herself. She has no nausea nor vomiting. She continues to be at this time on Eliquis 5 mg twice a day, Lipitor 40 mg daily, Lasix 20 mg twice a day, metoprolol tartrate 25 mg twice a day; in addition to DuoNeb and Protonix. PHYSICAL EXAMINATION: Blood pressure 139/80 with the heart rate in the 90s. LUNGS: With decreased air exchange. No wheezes. HEART: Irregular, irregular. S1, S2. No S3 with a holosystolic murmur. No diastolic murmur. ABDOMEN: Soft, nontender. EXTREMITIES: No edema. LAB DATA: Lab data revealed BUN and creatinine 25 and 1.0, potassium 4.7. IMPRESSION: 1. Acute dyspneic event with probable acute hypoxemia and could be an element of heart failure with diastolic dysfunction. 2. Chronic persistent atrial fibrillation anticoagulated. 3. Mitral regurgitation moderate by recent evaluation. 4. Mild coronary artery disease. RECOMMENDATION: We will continue present therapy. She may be able to be discharged home soon. I would recommend to follow her renal function as an outpatient. MMODL / IJN: [id number] /
--- NOTE | 2019-07-02 13:29 | P.PN ---
Subjective Progress Note Date: 07/02/19 Acute hypoxic respiratory failure secondary to pulmonary edema Hypertensive emergency. Patient is a 74-year-old female with a known history of chronic atrial fibrillation on anticoagulation with eliquis, hypertension, hyperlipidemia, mild to moderate pulmonary hypertension, mitral regurgitation and osteoarthritis and other multiple medical problems came to ER with the complaints of shortness of breath worsening since 3 AM last night. Patient woke up to use the restroom and felt shortness of breath. Patient states that about 1 week ago she had a choking episode when she was drinking tea. Since then she's been having issues with her breathing and not for normal after that. Denied any fever or chills. No cough or sputum production. Patient was hypoxic on admission and requiring BiPAP. Denied any other recent illnesses. Patient's blood pressure was 226/116 with heart rate of 116 on admission. Patient did have leukocytosis with WBC count 21.6 on admission. UA negative for infection. Patient received 1 dose of IV Rocephin in the ER.. Chest x-ray showed there is moderate pulmonary edema that is nonspecific and could be related to ordered ESR acute heart failure. There is a change compared to old exam. CT chest showed mild cardiomegaly. With the biatrial enlargement. Mild/moderate to marked emphysema. Scant bilateral dependent pleural effusions. EKG showed atrial fibrillation with heart rate of 97 Hemoglobin 15, platelets 261, d-dimer not elevated at 0.51 Lactic acid 4.6 on admission magnesium 1.8 and troponin 2 negative ProBNP 1540 Influenza negative. 07/01/2019 Patient is currently sitting in the chair and is able to tolerate oral diet. Saturating well on nasal cannula oxygen. Patient was started on Lasix. Blood pressure is fairly controlled today. Patient has been afebrile. No nausea vomiting or abdominal pain. Cardiology is following. Gradually titrate down to room air possible discharge home in the next 24-48 hours. 07/02/2019 seemed fluid balance -currently on Lasix 20 mg by mouth daily, creatinine down to 1. 24-hour I&O reflecting weight down by 0.7 kg. No edema. Chronic controlled atrial fibrillation on Eliquis. Required 2 L nasal cannula O2 to maintain O2 sats in the 90s, desats into the low 80s on room air after exertion. Denies chest pain, palpitations or increased shortness of breath.VSS. Objective - Vital Signs Vital signs: Vital Signs Temp 97.6 F 07/02/19 03:45 Pulse 96 07/02/19 12:06 Resp 22 07/02/19 12:00 BP 145/80 07/02/19 12:00 Pulse Ox 90 L 07/02/19 12:00 Intake & Output 07/01/19 07/02/19 07/02/19 18:59 06:59 18:59 Intake Total 598 120 180 Balance 598 120 180 Weight 77.2 kg Intake: Oral 598 120 180 Other: Voiding Method Toilet # Voids 1 - Exam PHYSICAL EXAM: VITAL SIGNS: As above GENERAL: sitting up in bed, no acute distress HEENT: Conjunctivae normal. eyes normal. Oral mucosa moist NECK: No JVD. No thyroid enlargement. No LNs CARDIOVASCULAR: S1, S2 regular. Systolic murmur RESPIRATION: Breath sounds diminished in the bases. No rhonchi , left basilar crackles. ABDOMEN: Soft, nontender . No guarding. no masses palpable. No ascites, No hepatosplenomegaly.Bowel sounds heard. LEGS: No edema. no swelling PSYCHIATRY: Alert and oriented X3, mood and affect normal. NERVOUS SYSTEM: Cranial N 2-12 grossly normal. Moves all 4 limbs. No focal deficits. Strength and sensation grossly intact.. Skin: no lesions, no rash - Labs CBC & Chem 7: 07/02/19 05:55 07/02/19 05:55 Labs: Abnormal Lab Results - Last 24 Hours (Table) 07/02/19 07/02/19 Range/Units 05:55 05:55 Neutrophils # 7.9 H (1.3-7.7) k/uL BUN 25 H (7-17) mg/dL Glucose 110 H (74-99) mg/dL Microbiology - Last 24 Hours (Table) 06/29/19 06:39 Blood Culture - Preliminary Blood No Growth after 72 hours Assessment and Plan Assessment: Shortness of breath secondary to pulmonary edema. Status post BiPAP. Currently nasal cannula dependent. Acute hypoxic respiratory failure secondary to pulmonary edema requiring BiPAP on admission. Hypertensive emergency with pulmonary edema on admission. Possible acute on chronic CHF with diastolic dysfunction/valvular abnormalities Moderate MR and moderate to severe TR and moderate pulmonary hypertension Chronic atrial fibrillation on anticoagulation with the decrease Leukocytosis. 21.6 on admission. Possibly reactive. Chest x-ray and UA negative. Trending down 10.8. Pro-calcitonin not elevated. Hypertension Hyperlipidemia GERD Lactic acidosis on admission resolved now Previous history of smoking Plan: Continue on current medication regime ,monitoring and symptomatic treatment. Increase ambulation as tolerated. Continue titrating down oxygen to room air. Possibly DC later this afternoon if patient no longer requiring nasal cannula oxygen. Plan of care discussed at bedside with patient who verbalizes understanding of and agreement with. The impression and plan of care has been dictated as directed. : I performed a history and examination of this patient, discussed the same with the dictator. I agree with the dictator's note ,documented as a scribe. Any additional findings or plans will be noted.
[2019-07-03] MEDS: METOPROLOL TARTRATE 25 MG TAB PO SCH ×2 (08:43→22:55)
[2019-07-03] MEDS: ATORVASTATIN 40 MG TAB PO SCH (08:43)
[2019-07-03] MEDS: APIXABAN 5 MG TAB PO SCH ×2 (08:43→22:55)
[2019-07-03] MEDS: PANTOPRAZOLE 40 MG TABLET PO SCH (08:43)
[2019-07-03] MEDS: FUROSEMIDE 20 MG TAB PO SCH (08:43)
[2019-07-03] MEDS: IPRATROPIUM-ALBUTEROL 3 ML NEB INHALATION SCH ×4 (08:47→19:45)
[2019-07-03 11:48] VITALS: RESP 18
--- NOTE | 2019-07-03 14:38 | P.PN ---
Subjective Progress Note Date: 07/03/19 This is a pleasant 74-year-old female past medical history significant for chronic persistent atrial fibrillation on long-term anticoagulation, valvular heart disease, pulmonary hypertension, hypertension, nonrheumatic mitral regurgitation, patent foramen ovale and dyslipidemia, is admitted to the hospital with symptoms of progressively worsening shortness of breath. Patient seen and examined today, overall is feeling better. Continues at this time to be on oral diuretics. Sodium 141, potassium 4.7, BUN 25, creatinine 1.0. Blood pressure 132/84 with a heart rate in the 70s to 80s, 97% on 2 L of oxygen. Objective - Vital Signs Vital signs: Vital Signs Temp 97.8 F 07/03/19 11:47 Pulse 99 07/03/19 12:47 Resp 18 07/03/19 11:47 BP 132/85 07/03/19 11:47 Pulse Ox 97 07/03/19 11:47 Intake & Output 07/02/19 07/03/19 07/03/19 18:59 06:59 18:59 Intake Total 410 230 240 Output Total 2 6 200 Balance 408 224 40 Weight 75 kg Intake: Oral 410 230 240 Output: Urine 2 6 200 Other: Voiding Method Toilet Toilet # Voids 1 1 1 - Exam PHYSICAL EXAMINATION Blood pressure 138/77 heart rate on 06 afebrile and maintaining oxygen saturaiton on nasal cannula. CONSTITUTIONAL: No apparent distress. HEENT: Head is normocephalic. Pupils are equal, round. Sclerae anicteric. Mucous membranes of the mouth are moist. No JVD. No carotid bruit. CHEST EXAMINATION: Course sounds noted on the left, clear on the right. No chest wall tenderness is noted on palpation or with deep breathing. HEART EXAMINATION: Irregular rate and rhythm. S1, S2 heard. Systolic ejection murmur heard at the base and the apex, no gallops or rub. ABDOMEN: Soft, nontender. Positive bowel sounds. EXTREMITIES: 2+ peripheral pulses, trace pitting bilateral lower extremity edema and no calf tenderness. NEUROLOGIC EXAMINATION: Patient is awake, alert and oriented x3. - Labs CBC & Chem 7: 07/02/19 05:55 07/02/19 05:55 Labs: Microbiology - Last 24 Hours (Table) 06/29/19 06:39 Blood Culture - Preliminary Blood No Growth after 96 hours Assessment and Plan Plan: ASSESSMENT and plan #1 Shortness of breath with pulmonary edema, diastolic congestive heart failure acute on chronic #2 Leukocytosis #3 Lactic acidosis on admission, improved #4Non-rheumatic mitral regurgitation #5 Pulmonary hypertension #6 chronic persistent atrial fibrillation Plan From cardiology's perspective, patient may be able to be discharged once cleared by primary. We'll make a follow-up appointment in the office post discharge. DNP note has been reviewed, I agree with a documented findings and plan of care. Patient was seen and examined.
--- NOTE | 2019-07-03 16:12 | P.PN ---
Subjective Progress Note Date: 07/03/19 Acute hypoxic respiratory failure secondary to pulmonary edema Hypertensive emergency. Patient is a 74-year-old female with a known history of chronic atrial fibrillation on anticoagulation with eliquis, hypertension, hyperlipidemia, mild to moderate pulmonary hypertension, mitral regurgitation and osteoarthritis and other multiple medical problems came to ER with the complaints of shortness of breath worsening since 3 AM last night. Patient woke up to use the restroom and felt shortness of breath. Patient states that about 1 week ago she had a choking episode when she was drinking tea. Since then she's been having issues with her breathing and not for normal after that. Denied any fever or chills. No cough or sputum production. Patient was hypoxic on admission and requiring BiPAP. Denied any other recent illnesses. Patient's blood pressure was 226/116 with heart rate of 116 on admission. Patient did have leukocytosis with WBC count 21.6 on admission. UA negative for infection. Patient received 1 dose of IV Rocephin in the ER.. Chest x-ray showed there is moderate pulmonary edema that is nonspecific and could be related to ordered ESR acute heart failure. There is a change compared to old exam. CT chest showed mild cardiomegaly. With the biatrial enlargement. Mild/moderate to marked emphysema. Scant bilateral dependent pleural effusions. EKG showed atrial fibrillation with heart rate of 97 Hemoglobin 15, platelets 261, d-dimer not elevated at 0.51 Lactic acid 4.6 on admission magnesium 1.8 and troponin 2 negative ProBNP 1540 Influenza negative. 07/01/2019 Patient is currently sitting in the chair and is able to tolerate oral diet. Saturating well on nasal cannula oxygen. Patient was started on Lasix. Blood pressure is fairly controlled today. Patient has been afebrile. No nausea vomiting or abdominal pain. Cardiology is following. Gradually titrate down to room air possible discharge home in the next 24-48 hours. 07/02/2019 seemed fluid balance -currently on Lasix 20 mg by mouth daily, creatinine down to 1. 24-hour I&O reflecting weight down by 0.7 kg. No edema. Chronic controlled atrial fibrillation on Eliquis. Required 2 L nasal cannula O2 to maintain O2 sats in the 90s, desats into the low 80s on room air after exertion. Denies chest pain, palpitations or increased shortness of breath.VSS. 07/03/2019 maintaining O2 sats of 97% on 2 L nasal cannula. After showering this morning, O2 sat decreased to 82% on room air. Diuresing well, weight decreased by 2 kg. Controlled Afib. Denies chest pain, palpitations or increased shortness of breath. Denies lightheadedness, dizziness or focal deficits. Objective - Vital Signs Vital signs: Vital Signs Temp 97.8 F 07/03/19 11:47 Pulse 89 07/03/19 16:02 Resp 18 07/03/19 11:47 BP 132/85 07/03/19 11:47 Pulse Ox 97 07/03/19 11:47 Intake & Output 07/02/19 07/03/19 07/03/19 18:59 06:59 18:59 Intake Total 410 230 240 Output Total 2 6 200 Balance 408 224 40 Weight 75 kg Intake: Oral 410 230 240 Output: Urine 2 6 200 Other: Voiding Method Toilet Toilet # Voids 1 1 1 - Exam PHYSICAL EXAM: VITAL SIGNS: As above GENERAL: sitting up in bed, no acute distress HEENT: Conjunctivae normal. eyes normal. Oral mucosa moist NECK: No JVD. No thyroid enlargement. No LNs CARDIOVASCULAR: S1, S2 regular. Systolic murmur RESPIRATION: Breath sounds diminished in the bases. No rhonchi , no crackles, no rhonchi ABDOMEN: Soft, nontender . No guarding. no masses palpable. Bowel sounds heard. LEGS: No edema. no swelling PSYCHIATRY: Alert and oriented X3, mood and affect normal. NERVOUS SYSTEM: Cranial N 2-12 grossly normal. Moves all 4 limbs. No focal deficits. Strength and sensation grossly intact.. Skin: no lesions, no rash - Labs CBC & Chem 7: 07/02/19 05:55 07/02/19 05:55 Labs: Microbiology - Last 24 Hours (Table) 06/29/19 06:39 Blood Culture - Preliminary Blood No Growth after 96 hours Assessment and Plan Assessment: Shortness of breath secondary to pulmonary edema. Status post BiPAP. Currently nasal cannula dependent. Acute hypoxic respiratory failure secondary to pulmonary edema requiring BiPAP on admission. Hypertensive emergency with pulmonary edema on admission. Possible acute on chronic CHF with diastolic dysfunction/valvular abnormalities Moderate MR and moderate to severe TR and moderate pulmonary hypertension Chronic atrial fibrillation on anticoagulation with the decrease Leukocytosis. 21.6 on admission. Possibly reactive. Chest x-ray and UA negat leticia. Trending down 10.8. Pro-calcitonin not elevated. Hypertension Hyperlipidemia GERD Lactic acidosis on admission resolved now Previous history of smoking Plan: Continue on current medication regime ,monitoring and symptomatic treatment. Continue titrating down oxygen to room air. Possibly DC later this afternoon if patient no longer requiring nasal cannula oxygen. The impression and plan of care has been dictated as directed. : I performed a history and examination of this patient, discussed the same with the dictator. I agree with the dictator's note ,documented as a scribe. Any additional findings or plans will be noted.
[2019-07-04 07:49] VITALS: BP 128/65; TEMP 98.1
[2019-07-04] MEDS: IPRATROPIUM-ALBUTEROL 3 ML NEB INHALATION SCH ×2 (07:49→11:37)
[2019-07-04] MEDS: METOPROLOL TARTRATE 25 MG TAB PO SCH (08:06)
[2019-07-04] MEDS: ATORVASTATIN 40 MG TAB PO SCH (08:06)
[2019-07-04] MEDS: PANTOPRAZOLE 40 MG TABLET PO SCH (08:06)
[2019-07-04] MEDS: FUROSEMIDE 20 MG TAB PO SCH (08:06)
[2019-07-04] MEDS: APIXABAN 5 MG TAB PO SCH (08:06)
[2019-07-04] MEDS ORDERED: INFLUENZA VACCINE (6 MOS+) 60 MCG/0.5 ML SYRINGE IM ONE (10:33)
--- NOTE | 2019-07-04 10:44 | P.PN ---
Subjective Progress Note Date: 07/04/19 This is a pleasant 74-year-old female past medical history significant for chronic persistent atrial fibrillation on long-term anticoagulation, valvular heart disease, pulmonary hypertension, hypertension, nonrheumatic mitral regurgitation, patent foramen ovale and dyslipidemia, is admitted to the hospital with symptoms of progressively worsening shortness of breath. Patient seen and examined today, overall is feeling better. Continues at this time to be on oral diuretics. Sodium 141, potassium 4.7, BUN 25, creatinine 1.0. Blood pressure 132/84 with a heart rate in the 70s to 80s, 97% on 2 L of oxygen. 07/04/2019 Patient was seen and examined this morning, breathing is overall stable, still requiring oxygen to maintain sats above 92. Blood pressure 128/60 heart rate in the 70s. Objective - Vital Signs Vital signs: Vital Signs Temp 98.1 F 07/04/19 07:48 Pulse 71 07/04/19 09:48 Resp 18 07/04/19 07:50 BP 128/65 07/04/19 07:48 Pulse Ox 96 07/04/19 09:48 Intake & Output 07/03/19 07/04/19 07/04/19 18:59 06:59 18:59 Intake Total 702 600 Output Total 200 200 600 Balance 502 -200 0 Weight 75 kg 75 kg Intake: Oral 702 600 Output: Urine 200 200 600 Other: Voiding Method Toilet Toilet Toilet # Voids 2 2 1 - Exam PHYSICAL EXAMINATION Blood pressure 138/77 heart rate on 06 afebrile and maintaining oxygen sa turaiton on nasal cannula. CONSTITUTIONAL: No apparent distress. HEENT: Head is normocephalic. Pupils are equal, round. Sclerae anicteric. Mucous membranes of the mouth are moist. No JVD. No carotid bruit. CHEST EXAMINATION: Course sounds noted on the left, clear on the right. No chest wall tenderness is noted on palpation or with deep breathing. HEART EXAMINATION: Irregular rate and rhythm. S1, S2 heard. Systolic ejection murmur heard at the base and the apex, no gallops or rub. ABDOMEN: Soft, nontender. Positive bowel sounds. EXTREMITIES: 2+ peripheral pulses, trace pitting bilateral lower extremity edema and no calf tenderness. NEUROLOGIC EXAMINATION: Patient is awake, alert and oriented x3. - Labs CBC & Chem 7: 07/02/19 05:55 07/02/19 05:55 Labs: Microbiology - Last 24 Hours (Table) 06/29/19 06:39 Blood Culture - Preliminary Blood No Growth after 120 hours Assessment and Plan Plan: ASSESSMENT and plan #1 Shortness of breath with pulmonary edema, diastolic congestive heart failure acute on chronic #2 Leukocytosis #3 Lactic acidosis on admission, improved #4Non-rheumatic mitral regurgitation #5 Pulmonary hypertension #6 chronic persistent atrial fibrillation Plan From cardiology's perspective, patient may be able to be discharged once cleared by primary. We'll make a follow-up appointment in the office post discharge. DNP note has been reviewed, I agree with a documented findings and plan of care. Patient was seen and examined.
[2019-07-04 12:01] VITALS: PULSE 80
--- NOTE | 2019-07-04 12:55 | P.DS ---
Providers Date of admission: 06/29/19 08:26 Expected date of discharge: 07/04/19 Attending physician: Riki Toth MD Consults: 06/29/19 08:21 Consult Physician Urgent Consulting Provider: Hailey Goldman Consult Reason/Comments: Flash pulmonary edema Do you want consulting provider notified?: Yes Primary care physician: [facility] Course: Final Diagnoses: Acute hypoxic respiratory failure secondary to pulmonary edema, acute on chronic diastolic CHF. Status post BiPAP. Currently nasal cannula dependent. Hypertensive emergency with pulmonary edema on admission. Possible acute on chronic CHF with diastolic dysfunction/valvular abnormalities Moderate MR and moderate to severe TR and moderate pulmonary hypertension Chronic atrial fibrillation on anticoagulation with the decrease Leukocytosis. 21.6 on admission. Possibly reactive. Chest x-ray and UA negative. Trending down 10.8. Pro-calcitonin not elevated. Hypertension Hyperlipidemia GERD Lactic acidosis on admission resolved now Previous history of smoking Hospital course:Patient is a 74-year-old female with a known history of chronic atrial fibrillation on anticoagulation with eliquis, hypertension, hyperlipidemia, mild to moderate pulmonary hypertension, mitral regurgitation and osteoarthritis and other multiple medical problems came to ER with the complaints of shortness of breath worsening since 3 AM last night. Patient woke up to use the restroom and felt shortness of breath. Patient states that about 1 week ago she had a choking episode when she was drinking tea. Since then she's been having issues with her breathing and not for normal after that. Denied any fever or chills. No cough or sputum production. Patient was hypoxic on admission and requiring BiPAP. Denied any other recent illnesses. Patient's blood pressure was 226/116 with heart rate of 116 on admission. Patient did have leukocytosis with WBC count 21.6 on admission. UA negative for infection. Patient received 1 dose of IV Rocephin in the ER.. Chest x-ray showed there is moderate pulmonary edema that is nonspecific and could be related to ordered ESR acute heart failure. There is a change compared to old exam. CT chest showed mild cardiomegaly. With the biatrial enlargement. Mild/moderate to marked emphysema. Scant bilateral dependent pleural effusions. EKG showed atrial fibrillation with heart rate of 97 Hemoglobin 15, platelets 261, d-dimer not elevated at 0.51 Lactic acid 4.6 on admission magnesium 1.8 and troponin 2 negative ProBNP 1540 Influenza negative. 07/01/2019 Patient is currently sitting in the chair and is able to tolerate oral diet. Saturating well on nasal cannula oxygen. Patient was started on Lasix. Blood pressure is fairly controlled today. Patient has been afebrile. No nausea vomiting or abdominal pain. Cardiology is following. Gradually titrate down to room air possible discharge home in the next 24-48 hours. 07/02/2019 seemed fluid balance -currently on Lasix 20 mg by mouth daily, creatinine down to 1. 24-hour I&O reflecting weight down by 0.7 kg. No edema. Chronic controlled atrial fibrillation on Eliquis. Required 2 L nasal cannula O2 to maintain O2 sats in the 90s, desats into the low 80s on room air after exertion. Denies chest pain, palpitations or increased shortness of breath.VSS. 07/03/2019 maintaining O2 sats of 97% on 2 L nasal cannula. After showering this morning, O2 sat decreased to 82% on room air. Diuresing well, weight decreased by 2 kg. Controlled Afib. Denies chest pain, palpitations or increased shortness of breath. Denies lightheadedness, dizziness or focal deficits. Significant clinical improvement. Continues to require 2 L nasal cannula O2 to maintain O2 sats in the 90%. O2 sat on room air after ambulation 84%. Patient will require 2 L nasal cannula O2 as well as nebulized bronchodilators at discharge. Will prescribe 2 weeks of oral Lasix, reevaluate in clinic. Denies chest pain, palpitations or increased shortness of breath. Denies lightheadedness, dizziness or focal deficits. Cleared by cardiology for discharge. Patient is being discharged home in stable condition with guarded prognosis. EXAM: GENERAL:Alert and oriented X 3, No acute distress CARDIOVASCULAR: S1, S2 regular. Systolic murmur RESPIRATION: Breath sounds diminished in the bases. No rhonchi , no crackles, no rhonchi ABDOMEN: Soft, nontender . No guarding. no masses palpable. Bowel sounds heard. NERVOUS SYSTEM: No focal deficits. The impression and plan of care has been dictated as directed. : I performed a history and examination of this patient, discussed the same with the dictator. I agree with the dictator's note ,documented as a scribe. Any additional findings or plans will be noted. Health Concerns: Home Oxygen - to be delivered prior to discharge - [facility] - [phone] PULMONARY EDEMA/FLUID OVERLOAD 1. Weigh yourself every morning after you urinate. If you gain 2-3 pounds overnight or 5 pounds in one week, call your primary physician for guidance on your medications. Keep a log of your weights. 2. Avoid salt, or foods with hidden salt. Extra salt makes your heart work harder and traps the fluid in your body for longer. 3. Take all of your medications as directed, especially your water pills. NEVER skip a dose. 4. Elevate your legs when you are not up moving around to help with circulation and prevent swelling. 5. Call your physician if you notice any extra swelling in your legs, ankles, feet or abdomen, if you have a new dry cough, if your shortness of breath worsens with activity or at rest, or if you feel more fatigued. Patient Condition at Discharge: Serious Plan - Discharge Summary Discharge Rx Participant: No New Discharge Prescriptions: New Ipratropium-Albuterol Nebulize [Duoneb 0.5 mg-3 mg/3 ml Soln] 3 ml INHALATION RT-QID #120 ampul.neb Furosemide [Lasix] 20 mg PO DAILY #14 tab Continue Pantoprazole [Protonix] 40 mg PO DAILY Atorvastatin Calcium [Lipitor] 40 mg PO DAILY Apixaban [Eliquis] 5 mg PO BID Sodium Chloride [Saline Nasal [place]] 1 spray EA NOSTRIL DAILY PRN PRN Reason: Nasal Congestion Metoprolol Tartrate [Lopressor] 25 mg PO BID Changed Albuterol Sulfate [Proair Hfa] 2 puff INHALATION DAILY PRN #0 PRN Reason: Shortness Of Breath Discharge Medication List Atorvastatin Calcium [Lipitor] 40 mg PO DAILY 01/22/16 [History] Pantoprazole [Protonix] 40 mg PO DAILY 01/22/16 [History] Apixaban [Eliquis] 5 mg PO BID 11/09/18 [History] Metoprolol Tartrate [Lopressor] 25 mg PO BID 06/29/19 [History] Sodium Chloride [Saline Nasal [place]] 1 spray EA NOSTRIL DAILY PRN 06/29/19 [History] Albuterol Sulfate [Proair Hfa] 2 puff INHALATION DAILY PRN #0 07/04/19 [Rx] Furosemide [Lasix] 20 mg PO DAILY #14 tab 07/04/19 [Rx] Ipratropium-Albuterol Nebulize [Duoneb 0.5 mg-3 mg/3 ml Soln] 3 ml INHALATION RT-QID #120 ampul.neb 07/04/19 [Rx] Follow up Appointment(s)/Referral(s): Hailey Goldman MD [STAFF PHYSICIAN] - 07/13/19 10:15 am (With Manda AGUILAR.) Nuvia Lerner MD [Primary Care Provider] - 07/06/19 11:30 am (Tuesday with PA in [place]) Ambulatory/Diagnostic Orders: Complete Blood Count w/diff [LAB.AMB] Time Frame: 3 Days, Location: None Selected Patient Instructions/Handouts: Pulmonary Edema (DC), Using Oxygen at Home (DC), Low-Sodium Diet (DC) Activity/Diet/Wound Care/Special Instructions: 2l NC O2 , O2sat on RA after Amb. 84%.correctional counselor/case manager to also arrange for nebulizer. Patient requires home oxygen at discharge for hypoxia secondary to dx: copd
== END 2019-07-04 13:10 | disposition home or self-care (01) | DRG 291 ==
LOC: EC 06:18 → 3SCARD 08:26
PROVIDERS: ADMIT Family Medicine; ATTEND Family Medicine
PROC: 5A09457 Assistance with Respiratory Ventilation, 24-96 Consecutive Hours, Continuous Positive Airway Pressure (ICD-10-PCS; principal; 2019-06-29)
DX: I11.0 Hypertensive heart disease with heart failure (principal); J96.01 Acute respiratory failure with hypoxia; E87.2 Acidosis; I16.1 Hypertensive emergency; I48.19 Other persistent atrial fibrillation; Q21.1 Atrial septal defect; I50.33 Acute on chronic diastolic (congestive) heart failure; I08.1 Rheumatic disorders of both mitral and tricuspid valves; I25.10 Atherosclerotic heart disease of native coronary artery without angina pectoris; I27.20 Pulmonary hypertension, unspecified; J43.9 Emphysema, unspecified; K21.9 Gastro-esophageal reflux disease without esophagitis; E78.5 Hyperlipidemia, unspecified; M19.041 Primary osteoarthritis, right hand; M19.042 Primary osteoarthritis, left hand; Z79.01 Long term (current) use of anticoagulants; Z79.899 Other long term (current) drug therapy; Z82.5 Family history of asthma and other chronic lower respiratory diseases; Z87.891 Personal history of nicotine dependence; Z90.710 Acquired absence of both cervix and uterus; Z90.89 Acquired absence of other organs; Z98.890 Other specified postprocedural states; Z80.0 Family history of malignant neoplasm of digestive organs
CPT/HCPCS: 36415; 71045; 71250; 80048; 80053; 80061; 83605; 83735; 83880; 84145; 84484; 85025; 85379; 85610; 85730; 87040; 87502; 90686; 93005; 94640; 94660; 94760; 96365; 99285

== ENCOUNTER → 2020-06-11 | Outpatient (CLI) | payer MEDICARE, OTHER ==
--- NOTE | 2020-06-11 18:23 | MR ---
EXAMINATION TYPE: MR brain wo/w con DATE OF EXAM: 06/11/2020 COMPARISON: None HISTORY: Tremors, Hx brain tumor CONTRAST: Performed utilizing 7.5 mL intravenous Gadavist gadolinium contrast. TECHNIQUE: Multiplanar, multiecho imaging on a 3.0 Bekah magnet is performed through the brain. Stud y is performed within 24 hours of arrival to the hospital. The craniovertebral junction is normal. The pituitary is normal. Diffusion-weighted imaging is performed. No abnormal hyperintensity is present to suggest an acute i ntracranial infarct or acute ischemic change. Inferior frontal lobes have increased signal. There is likely postsurgical changes along the inferior frontal lobes bilaterally. No recurrent masses are identified. Post traumatic encephalomalacia may b e present. Temporal lobes appear symmetrical. Following contrast administration no suspicious enhancement is evident. Ventricles and sulci are prominent for the patient age. Mucosal thickening or retention cysts are within the bilateral maxillary sinuses. Mild mucosal thicke olivia is through ethmoid air cells. There is a retention cyst within the frontal sinuses. IMPRESSIONS: 1. Changes along the inferior frontal lobes bilaterally. This can be related to postsurgical changes. Differential would include old posttraumatic encephalomalacia. 2. Postsurgical changes within the calvarium.
== END | disposition home or self-care (01) ==
LOC: RADMRIMAIN 06:32
PROVIDERS: ATTEND Family Medicine
DX: R90.89 Other abnormal findings on diagnostic imaging of central nervous system (principal); R25.1 Tremor, unspecified; Z86.011 Personal history of benign neoplasm of the brain; Z98.890 Other specified postprocedural states
CPT/HCPCS: 70553; A9585

== ENCOUNTER → 2020-09-29 | Outpatient (CLI) | payer MEDICARE ==
--- NOTE | 2020-09-29 12:02 | CT ---
EXAMINATION TYPE: CT chest wo con DATE OF EXAM: 09/29/2020 COMPARISON: 06/29/2019 and 02/26/2017 HISTORY: 75-year-old female atrial fibrillation, Pulmonary hypertension, shortness of breath, dyspnea TECHNIQUE: Contiguous axial scanning of the chest without IV contrast. Coronal and sagittal reconstru ctions performed. CT DLP: 286.3 mGycm Automated exposure control for dose reduction was used. FINDINGS: Heart is borderline enlarged with trace pericardial fluid. Mild scattered coronary artery calcificati ons particularly in the RCA. Aorta normal caliber with mild atherosclerotic arch calcifications and conventional branching anatomy . Right and left main pulmonary arteries measure 2.8 and 2.9 cm, respectively, suggesting underlying pu lmonary artery hypertension. Scattered nonenlarged mediastinal lymph nodes are unchanged. No thoracic lymphadenopathy by CT size c riteria. Moderate to advanced upper lung emphysema redemonstrated. Old healed right lateral rib fracture defor mities with some underlying pleural parenchymal scarring remains unchanged. A couple 5 mm posterior lower lobe groundglass nodule is unchanged from 2019. Calcified granuloma left apex. Pleural parenchymal scarring at the right apex. A few calcified granulomas within the spleen. Visualized upper abdomen shows mild to moderate atheros clerotic calcifications in the abdominal aorta. Bones: Moderate degenerative disc disease and endplate spondylosis mid and lower thoracic spine. IMPRESSION: 1. BORDERLINE CARDIOMEGALY AND COPD WITH MODERATE TO ADVANCED EMPHYSEMA ESPECIALLY IN THE UPPER LUNGS . 2. FINDINGS COMPATIBLE WITH PULMONARY ARTERIAL HYPERTENSION. 3. EVIDENCE OF PRIOR GRANULOMATOUS DISEASE. A COUPLE 5 MM GROUNDGLASS NODULES IN THE LEFT LOWER LOBE REMAIN UNCHANGED SUGGESTING A BENIGN ETIOLOGY.
== END | disposition home or self-care (01) ==
LOC: RADCTMAIN 11:02
PROVIDERS: ATTEND Internal Medicine Pulmonary Disease
DX: R91.8 Other nonspecific abnormal finding of lung field (principal); I51.7 Cardiomegaly; J43.9 Emphysema, unspecified; I27.20 Pulmonary hypertension, unspecified; G47.33 Obstructive sleep apnea (adult) (pediatric); Z87.891 Personal history of nicotine dependence
CPT/HCPCS: 71250

== ENCOUNTER → 2020-10-21 | Outpatient (CLI) | payer MEDICARE ==
--- NOTE | 2020-10-21 13:24 | FL ---
EXAMINATION TYPE: FL barium swallow w video DATE OF EXAM: 10/21/2020 CLINICAL HISTORY: 75-year-old female R06.00, G47.33, I27.20, R06.83. Coughing and choking on liquids. TECHNIQUE: Deglutition study is performed utilizing thin liquid barium, barium thick applesauce, and barium coated cracker. COMPARISON: None. Total fluoroscopy time: 1 minute. Total images: None. Real-time fluoroscopy support was provided to speech pathology. FINDINGS: The oral and pharyngeal phases show satisfactory initiation and propagation with all modalities teste d. Normal mastication is seen with solid modalities tested. There is no evidence of penetration or aspiration with any modality tested. No significant pharyngeal residue was appreciated. IMPRESSION: No evidence for penetration or aspiration. Please refer to speech therapist notes for further detail s if necessary.
== END ==
LOC: RADFLMAIN 10:46
PROVIDERS: ATTEND Internal Medicine Pulmonary Disease
DX: R06.00 Dyspnea, unspecified (principal); R06.83 Snoring; G47.33 Obstructive sleep apnea (adult) (pediatric); I27.20 Pulmonary hypertension, unspecified
CPT/HCPCS: 74230

== ENCOUNTER 2021-06-26 19:42 | Inpatient (IN) | payer MEDICARE ==
--- NOTE | 2021-06-26 20:22 | ED ---
General Adult HPI - General Chief complaint: Syncope Stated complaint: Syncope Time Seen by Provider: 06/26/21 20:00 - History of Present Illness Initial comments: Dictation was produced using [employer] dictation software. please excuse any grammatical, word or spelling errors. Chief Complaint: 76 year-old oxygen-dependent female presents to the emergency department for fever, episode of syncope and dizziness History of Present Illness: This 68-year-old female she is oxygen dependent. She states that she has pulmonary hypertension. She wears 20 for 7 home oxygen. She keeps her oxygen between 3 and 5 L nasal cannula. Patient took off her supplemental oxygen at home and all of a sudden woke up on the floor. Patient is brought in by EMS. Patient states she has dizziness. She had fever of 101 patient took some Tylenol today. Denies any cough. No shortness of breath. No abdominal pain or urinary symptoms. Exudative for COVID-19. The obvious sick exposures. Patient takes an echo evaluation medications for A. fib. The ROS documented in this emergency department record has been reviewed and confirmed by me. Those systems with pertinent positive or negative responses have been documented in the HPI. All other systems are other negative and/or noncontributory. PHYSICAL EXAM: General Impression: Alert and oriented x3, not in acute distress, pale HEENT: Normocephalic atraumatic, extra-ocular movements intact, pupils equal and reactive to light bilaterally, mucous membranes moist. Cardiovascular: Heart regular rate and rhythm Chest: Able to complete full sentences, no retractions, no tachypnea Abdomen: abdomen soft, non-tender, non-distended, no organomegaly Musculoskeletal: Pulses present and equal in all extremities, no peripheral edema Motor: no focal deficits noted Neurological: CN II-XII grossly intact, no focal motor or sensory deficits noted Skin: Intact with no visualized rashes Psych: Normal affect and mood ED course: 78-year-old female who is oxygen dependent has multiple comorbidities including A. fib and on anticoagulation medications presents to the emergency department after syncopal episode. She also has constitutional symptoms After evaluation obtained. CBC unremarkable. Coag panel is unremarkable. Metabolic panel shows mild non-gap acidosis. Elevated renal markers are cranial 1.52. This appears to be higher than patient's usual baseline. Patient has elevated AST of 253 ALT of 118. Rest labs within acceptable limits.Troponin is elevated at 0.104. Given patient's list of comorbidities and history of present patient will be admitted for syncopal episode. She was admitted to observation for serial troponins, cardiac monitoring. Case discussed with Lemuel Rutledge was went except patient's Behalf of [facility]. EKG interpretation: Ventricular rate 89, A. fib, QRS 90, QTc 455. No LA prolongation, no QTC prolongation, no ST or T-wave changes noted. EKG compared to 06/29/2019 showing no changes. Overall, this EKG is unremarkable - Related Data Home Medications Medication Instructions Recorded Confirmed Apixaban [Eliquis] 5 mg PO BID 11/09/18 06/26/21 Metoprolol Tartrate [Lopressor] 25 mg PO BID 06/29/19 06/26/21 Acetaminophen [Tylenol] 650 mg PO TID PRN 06/26/21 06/26/21 Fluticasone Propion/Salmeterol 1 puff INHALATION RT-DAILY 06/26/21 06/26/21 [Fluticasone-Salmeterol 250-50] Ipratropium-Albuterol Nebulize 3 ml INHALATION RT-BID 06/26/21 06/26/21 [Duoneb 0.5 mg-3 mg/3 ml Soln] Previous Rx's Medication Instructions Recorded Furosemide [Lasix] 20 mg PO DAILY #14 tab 07/04/19 Allergies Allergy/AdvReac Type Severity Reaction Status Date / Time No Known Allergies Allergy Verified 06/26/21 22:07 Review of Systems ROS Statement: Those systems with pertinent positive or pertinent negative responses have been documented in the HPI. ROS Other: All systems not noted in ROS Statement are negative. Past Medical History Past Medical History: Atrial Fibrillation, GERD/Reflux, Hyperlipidemia, Hypertension, Osteoarthritis (OA) Additional Past Medical History / Comment(s): Mitral regurgitation, mild to moderate pulmonary HTN-per past medical hx/pt unaware, SOB with exertion, small hiatal hernia, current bilateral lower leg edema, occasional low back pain, a rthritis bilateral hands. 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 Past Anesthesia/Blood Transfusion Reactions: No Reported Reaction Additional Past Anesthesia/Blood Transfusion Reaction / Comment(s): no hx blood transfusion Past Psychological History: No Psychological Hx Reported Additional Psychological History / Comment(s): Pt resides with her spouse. She is independent. Past Alcohol Use History: None Reported Additional Past Alcohol Use History / Comment(s): Pt started smoking in 7 and quit in 1977. She was a 2ppd smoker. Past Drug Use History: None Reported - Past Family History Mother Family Medical History: Cancer Additional Family Medical History / Comment(s): bowel Father Family Medical History: COPD Additional Family Medical History / Comment(s): emphysema Brother(s) Family Medical History: Cancer Additional Family Medical History / Comment(s): Bowel cancer. Course Vital Signs 06/26/21 22:10 Pulse Rate 95 Respiratory 18 Rate Blood Pressure 100/69 O2 Sat by Pulse 94 L Oximetry Medical Decision Making - Lab Data Result diagrams: 06/26/21 21:27 06/26/21 21:27 Lab Results 06/26/21 06/26/21 06/26/21 Range/Units 21:27 21:27 21:27 WBC 5.5 (3.8-10.6) k/uL RBC 3.58 L (3.80-5.40) m/uL Hgb 11.4 (11.4-16.0) gm/dL Hct 35.3 (34.0-46.0) % MCV 98.8 (80.0-100.0) fL MCH 31.9 (25.0-35.0) pg MCHC 32.3 (31.0-37.0) g/dL RDW 15.7 H (11.5-15.5) % Plt Count 147 L (150-450) k/uL MPV 10.7 Neutrophils % 82 % Lymphocytes % 12 % Monocytes % 4 % Eosinophils % 0 % Basophils % 1 % Neutrophils # 4.5 (1.3-7.7) k/uL Lymphocytes # 0.6 L (1.0-4.8) k/uL Monocytes # 0.2 (0-1.0) k/uL Eosinophils # 0.0 (0-0.7) k/uL Basophils # 0.0 (0-0.2) k/uL Hypochromasia Slight Macrocytosis Slight PT 14.9 H (9.0-12.0) sec INR 1.5 H (<1.2) APTT 27.2 (22.0-30.0) sec Sodium 132 L (137-145) mmol/L Potassium 5.1 (3.5-5.1) mmol/L Chloride 105 (98-107) mmol/L Carbon Dioxide 17 L (22-30) mmol/L Anion Gap 10 mmol/L BUN 30 H (7-17) mg/dL Creatinine 1.52 H (0.52-1.04) mg/dL Est GFR (CKD-EPI)AfAm 38 (>60 ml/min/1.73 sqM) Est GFR (CKD-EPI)NonAf 33 (>60 ml/min/1.73 sqM) Glucose 88 (74-99) mg/dL Plasma Lactic Acid Bony (0.7-2.0) mmol/L Calcium 8.2 L (8.4-10.2) mg/dL Magnesium 2.0 (1.6-2.3) mg/dL Total Bilirubin 1.4 H (0.2-1.3) mg/dL AST 253 H (14-36) U/L ALT 118 H (4-34) U/L Alkaline Phosphatase 73 (38-126) U/L Troponin I (0.000-0.034) ng/mL Total Protein 5.6 L (6.3-8.2) g/dL Albumin 3.3 L (3.5-5.0) g/dL 06/26/21 06/26/21 Range/Units 21:27 21:27 WBC (3.8-10.6) k/uL RBC (3.80-5.40) m/uL Hgb (11.4-16.0) gm/dL Hct (34.0-46.0) % MCV (80.0-100.0) fL MCH (25.0-35.0) pg MCHC (31.0-37.0) g/dL RDW (11.5-15.5) % Plt Count (150-450) k/uL MPV Neutrophils % % Lymphocytes % % Monocytes % % Eosinophils % % Basophils % % Neutrophils # (1.3-7.7) k/uL Lymphocytes # (1.0-4.8) k/uL Monocytes # (0-1.0) k/uL Eosinophils # (0-0.7) k/uL Basophils # (0-0.2) k/uL Hypochromasia Macrocytosis PT (9.0-12.0) sec INR (<1.2) APTT (22.0-30.0) sec Sodium (137-145) mmol/L Potassium (3.5-5.1) mmol/L Chloride (98-107) mmol/L Carbon Dioxide (22-30) mmol/L Anion Gap mmol/L BUN (7-17) mg/dL Creatinine (0.52-1.04) mg/dL Est GFR (CKD-EPI)AfAm (>60 ml/min/1.73 sqM) Est GFR (CKD-EPI)NonAf (>60 ml/min/1.73 sqM) Glucose (74-99) mg/dL Plasma Lactic Acid Bony 1.3 (0.7-2.0) mmol/L Calcium (8.4-10.2) mg/dL Magnesium (1.6-2.3) mg/dL Total Bilirubin (0.2-1.3) mg/dL AST (14-36) U/L ALT (4-34) U/L Alkaline Phosphatase (38-126) U/L Troponin I 0.104 H* (0.000-0.034) ng/mL Total Protein (6.3-8.2) g/dL Albumin (3.5-5.0) g/dL Disposition Clinical Impression: Syncope, Elevated troponin Disposition: ADMITTED IP TO THIS HOSP Condition: Fair Referrals: Nuvia Lerner MD [Primary Care Provider] - 1-2 days
--- NOTE | 2021-06-26 21:03 | XR ---
EXAMINATION TYPE: XR chest 1V portable DATE OF EXAM: 06/26/2021 COMPARISON: 06/29/2019 HISTORY: 76 years Female. STUDY INDICATION GIVEN: fever, syncope . TECHNIQUE: AP upright portable chest radiograph IMPRESSION: Reticular nodular slightly patchy and interstitial opacities with prominence of bilateral edgar are se en bilaterally greater on the right though significantly decreased compared to the prior study. The f indings may be reflective of mild interstitial edema, atypical infection, atelectasis and/or scarring . Chronic fibrotic changes are also suspected to be present in both lower lobes though greater on the right. No pneumothorax or pleural effusion. There is mild cardiomegaly. There is intrathoracic aortic atherosclerotic calcifications. No acute osseous abnormalities appreciated.
[2021-06-26 21:36] LABS: Basophils % (A) 1 %; Eosinophils % (A) 0 %; HCT 35.3 % (34.0-46.0); HGB 11.4 gm/dL (11.4-16.0); Hypochromasia Slight; Lymphocytes # (A) 0.6 k/uL (1.0-4.8); Lymphocytes % (A) 12 %; MCH 31.9 pg (25.0-35.0); MCHC 32.3 g/dL (31.0-37.0); MCV 98.8 fL (80.0-100.0); Macrocytosis Slight; Mean Platelet Volume 10.7; Monocytes # (A) 0.2 k/uL (0-1.0); Monocytes % (A) 4 %; Neutrophils # (A) 4.5 k/uL (1.3-7.7); Neutrophils % (A) 82 %; Platelet Count 147 k/uL (150-450); RBC 3.58 m/uL (3.80-5.40); RDW 15.7 % (11.5-15.5); WBC 5.5 k/uL (3.8-10.6)
[2021-06-26 21:46] LABS: Albumin 3.3 g/dL (3.5-5.0); Calcium 8.2 mg/dL (8.4-10.2); INR 1.5 (<1.2); Partial Thromboplastin Time 27.2 sec (22.0-30.0); Potassium 5.1 mmol/L (3.5-5.1); Prothrombin Time 14.9 sec (9.0-12.0); Total Bilirubin 1.4 mg/dL (0.2-1.3); Total Protein 5.6 g/dL (6.3-8.2)
--- NOTE | 2021-06-26 21:51 | CT ---
EXAMINATION TYPE: CT brain wo con DATE OF EXAM: 06/26/2021 COMPARISON: 05/03/2016 HISTORY: fall TECHNIQUE: CT scan of the head performed without contrast CT DLP: 1076.4 mGycm Automated exposure control for dose reduction was used. FINDINGS: There is encephalomalacia changes in the bilateral frontal lobes with overlying postsurgical changes in the frontal calvarium. There is brain volume loss with prominence of the CSF spaces and ventricles . There is patchy low-attenuation the deep white matter and periventricular region suggesting chronic microvascular ischemic changes. No acute intracranial hemorrhage, midline shift or mass effect. Booth-white matter differentiation is preserved other than described above. No acute orbital, osseous or soft tissue abnormalities. There are similar postsurgical changes of the medial wall of the left orbit and ethmoid sinus. There is similar inferior herniation of the bilateral frontal lobes left greater than right. A similar appe aring density measuring about 9.7 mm in axial dimension is seen in the left ethmoid sinus similar to prior study. There is a mucous retention cyst or soft tissue thickening in the right maxillary sinus. There is muc osal thickening in ethmoid sinus. No mastoid air cell effusion. Atherosclerotic calcifications are again seen in the intracranial internal carotid arteries. IMPRESSION: 1. NO ACUTE INTRACRANIAL HEMORRHAGE, MIDLINE SHIFT OR MASS EFFECT. 2. ADDITIONAL FINDINGS DESCRIBED IN BODY OF REPORT WITH NO SIGNIFICANT CHANGE IN APPEARANCE COMPAR ED TO PRIOR. CORRELATION WITH HISTORY, PHYSICAL EXAMINATION RECOMMENDED.
[2021-06-26] MEDS ORDERED: ASPIRIN 81 MG PO STA (22:36)
[2021-06-27 04:29] LABS: Basophils % (A) 1 %; Eosinophils % (A) 0 %; HCT 36.1 % (34.0-46.0); HGB 11.4 gm/dL (11.4-16.0); Hypochromasia Slight; Lymphocytes # (A) 0.5 k/uL (1.0-4.8); Lymphocytes % (A) 13 %; MCH 31.8 pg (25.0-35.0); MCHC 31.6 g/dL (31.0-37.0); MCV 100.5 fL (80.0-100.0); Macrocytosis Slight; Mean Platelet Volume 10.2; Monocytes # (A) 0.2 k/uL (0-1.0); Monocytes % (A) 5 %; Neutrophils # (A) 2.9 k/uL (1.3-7.7); Neutrophils % (A) 79 %; Platelet Count 130 k/uL (150-450); RBC 3.59 m/uL (3.80-5.40); RDW 15.6 % (11.5-15.5); WBC 3.7 k/uL (3.8-10.6)
[2021-06-27 05:02] LABS: Calcium 8.5 mg/dL (8.4-10.2); Potassium 4.9 mmol/L (3.5-5.1)
[2021-06-27] MEDS ORDERED: METOPROLOL TARTRATE 25 MG TAB PO SCH (09:00)
[2021-06-27] MEDS: APIXABAN 5 MG TAB PO SCH ×2 (09:48→20:22)
[2021-06-27] MEDS: FUROSEMIDE 20 MG TAB PO SCH (09:48)
--- NOTE | 2021-06-27 15:54 | CT ---
EXAMINATION TYPE: CT chest wo con DATE OF EXAM: 06/27/2021 COMPARISON: None HISTORY: SOB, Covid + CT DLP: 286.6 mGycm Automated exposure control for dose reduction was used. Images obtained from the thoracic inlet to the diaphragm without contrast. There is extensive interstitial and airspace infiltrate in the right lung. This is more concentrated in the posterior lung field. There is some mild interstitial infiltrate in the left lower lobe cane furniture maker iorly. There is pulmonary emphysema. There are a few paratracheal lymph nodes up to 1.5 cm. Thoracic aorta is atheromatous. There are no hilar masses. There is no pericardial effusion. Heart appears sli ghtly enlarged. There is small right pleural effusion. Upper abdominal soft tissues are intact. The t horacic spine is intact. There is no compression fracture. Sternum is intact. IMPRESSION: Bilateral pneumonia that is worse on the right side. Cardiomegaly. No suspicious pulmonary mass. Emph ysema.
[2021-06-27] MEDS ORDERED: ACETAMINOPHEN TAB 325 MG TAB PO PRN (16:15)
[2021-06-27] MEDS ORDERED: HYDROcodone/APAP 5-325MG 1 EACH TAB PO PRN (16:19)
[2021-06-27] MEDS ORDERED: ALPRAZolam 0.25 MG TAB PO PRN (16:19)
--- NOTE | 2021-06-27 17:05 | US ---
EXAMINATION TYPE: US venous doppler duplex LE BI DATE OF EXAM: 06/27/2021 4:55 PM COMPARISON: NONE CLINICAL HISTORY: dvt. SOB, Covid, elevated D-dimer SIDE PERFORMED: Bilateral TECHNIQUE: The lower extremity deep venous system is examined utilizing real time linear array sonog gene with graded compression, doppler sonography and color-flow sonography. VESSELS IMAGED: Common Femoral Vein Deep Femoral Vein Greater Saphenous Vein * Femoral Vein Popliteal Vein Small Saphenous Vein * Proximal Calf Veins (* superficial vessels) Right Leg: Negative for DVT Left Leg: Negative for DVT IMPRESSION: No evidence of deep vein thrombosis in the legs.
[2021-06-27] MEDS: ASCORBIC ACID 500 MG TAB PO SCH (17:37)
[2021-06-27] MEDS: CHOLECALCIFEROL 25 MCG (1000 IU) TABLET PO SCH (17:37)
[2021-06-27] MEDS: METOPROLOL TARTRATE 25 MG TAB PO SCH ×2 (17:37→20:22)
[2021-06-27] MEDS: ZINC SULFATE 220 MG CAP PO SCH (17:37)
[2021-06-27] MEDS: SODIUM CHLORIDE 0.9% 1,000 ML IV SCH (17:37)
[2021-06-27] MEDS: dexAMETHasone 2 MG TAB PO SCH (17:37)
[2021-06-27] MEDS ORDERED: REMDESIVIR 200 MG in SODIUM CHLORIDE 0.9% 250 ML IVPB ONE (18:30)
--- NOTE | 2021-06-27 18:50 | HP ---
HISTORY AND PHYSICAL DATE OF SERVICE: 06/27/2021. I am covering for Dr. Toth. CHIEF COMPLAINTS: Fever, syncope and dizziness. HISTORY OF PRESENT ILLNESS: This 76-year-old woman with a past medical history of atrial ablation, GERD, hypertension, hyperlipidemia, history of DJD, history of mitral regurgitation was not feeling well for the past several days. The patient had significant pulmonary hypertension apparently. Patient is on home O2. The patient took the oxygen and the patient was found on the floor, and the patient admitted to the hospital for further evaluation and treatment. The patient had multiple evaluations and investigations which I reviewed personally and the chest x-ray which I reviewed personally showed evidence of right lower lobe pneumonia and CT scan of the brain showed no acute abnormality. Chronic changes also noted. Encephalomalacia changes in the bilateral frontal lobes were also noted. The CT scan of the chest was also done which I reviewed personally which showed evidence of extensive bilateral interstitial pneumonia, highly suggestive of Covid 19 pneumonia, right more the left. The patient admitted for further evaluation and treatment. There is no history of fever, rigors, chills at this time. PAST MEDICAL HISTORY: History of atrial fibrillation, GERD, hypertension, hyperlipidemia, history of DJD, history of mitral regurgitation. MEDICATIONS: Home medications are: Lopressor, DuoNeb, Lasix, fluticasone, Tylenol, Eliquis. Doses reviewed. ALLERGIES: None. FAMILY HISTORY: Family history of bowel cancer. SOCIAL HISTORY: Previous history of smoking. No history of alcohol intake. REVIEW OF SYSTEMS: ENT: Diminished vision. Diminished hearing. CARDIOVASCULAR: No angina or palpitations. RESPIRATORY: As mentioned earlier. GI: As mentioned earlier. : No dysuria. NERVOUS SYSTEM: No numbness or weakness. ALLERGY/IMMUNOLOGY: No asthma or hayfever. MUSCULOSKELETAL: As mentioned earlier. HEMATOLOGY/ONCOLOGY: No history of anemia. ENDOCRINE: No history of diabetes or hypothyroidism. CONSTITUTIONAL: As mentioned earlier. DERMATOLOGY: Negative. RHEUMATOLOGY: Negative. PSYCHIATRIC: As mentioned earlier. PHYSICAL EXAMINATION: Alert and oriented times three. Pulse 93, blood pressure 133/61, respiration 20, temperature 98 degrees, pulse ox 98% on 5 L. HEENT: Conjunctivae normal. NECK: No JVD. Cardiovascular System: S1, S2 muffled. Respiration: Breath sounds diminished in the bases. A few scattered rhonchi and crackles. ABDOMEN: Soft, nontender. LEGS: No edema. No swelling. NERVOUS SYSTEM: Higher functions as mentioned earlier. Moves all four limbs. No focal deficits. LYMPHATICS: No lymph nodes palpable in the neck, axillae or groin. SKIN: No ulcer, no rashes and no bleeding. JOINTS: No active deforming arthropathy. LABS: WBC 3.7, hemoglobin 11.4, and D-dimer is 0.65 and troponin 0.694. Covid 19 positive. ASSESSMENT: 1. Acute Covid 19 infection, acute bilateral interstitial pneumonia with acute hypoxic respiratory failure, present on admission. 2. Troponin 0.104. Possible acute non ST elevation myocardial infarction. 3. Elevated AST/ALT and bilirubin, possible hepatitis. 4. Increased creatinine with acute renal failure with acute tubular necrosis, present on admission. 5. Mild acidosis present on admission. 6. Hyponatremia. 7. Mild leukopenia. 8. Increased MCV. 9. Mild thrombocytopenia. 10.Mild lymphopenia. 11.History of atrial fibrillation. 12.History of gastroesophageal reflux disease. 13.Hypertension. 14.Hyperlipidemia. 15.History of degenerative joint disease. 16.History of mitral regurgitation. 17.Mild to moderate pulmonary hypertension. 18.History of shortness of breath. 19.History of hiatal hernia. 20.History of occasional low back pain. 21.History of degenerative joint disease. 22.History of cardioversion. 23.Remote history of nicotine dependence. 24.Chronic hypoxic respiratory failure. 25.FULL CODE. RECOMMENDATIONS AND DISCUSSION: This 76-year-old woman who presented with multiple complex medical issues, we will continue to monitor, continue symptomatic treatment. Otherwise, I would recommend the patient has got acute Covid 19. Infectious Disease and Pulmonary consultation. Cardiology also has been consulted. Resume the home medications. The patient is on started on Eliquis. Prognosis guarded because of multiple complex medical issues. further recommendations to follow. A copy of dictation being forwarded to Dr. Toth who is the primary physician. I would also recommend ultrasound of the leg to complete the workup and 2D echo with Doppler as well. MMODL / IJN: [id number] /
[2021-06-27] MEDS: ALBUTEROL HFA INHALER INHALATION SCH (21:50)
[2021-06-27 23:48] LABS: Glucose,Whole Blood 164 mg/dL (75-99)
[2021-06-28] MEDS: PANTOPRAZOLE 40 MG TABLET PO SCH (06:26)
--- NOTE | 2021-06-28 07:40 | ECHOF ---
Referral Reason:elev trop, cov MEASUREMENTS -------- HEIGHT: 157.5 cm WEIGHT: 69.8 kg BP: 106/55 RVIDd: 4.5 cm (< 3.3) RAP: 5.00 mmHg RVSP: 75.28 mmHg TAPSE: 17.70 mm FINDINGS -------- Atrial fibrillation. This was a technically adequate study. Limited Study Overall left ventricular systolic function is normal with, an EF between 55 - 60 %. There is septal flattening in diastole and systole which is consistent with right ventricular pressure and volume ov erload. The right ventricle is severely enlarged. The right ventricular systolic function is severely impai red. Severe tricuspid regurgitation present. There is severe pulmonary hypertension. The right ventric ular systolic pressure, as measured by Doppler, is 75.28mmHg. There is no pericardial effusion. CONCLUSIONS -------- 1. Overall left ventricular systolic function is normal with, an EF between 55 - 60 %. 2. There is septal flattening in diastole and systole which is consistent with right ventricular pres sure and volume overload. 3. The right ventricle is severely enlarged. 4. The right ventricular systolic function is severely impaired. 5. Severe tricuspid regurgitation present. 6. There is severe pulmonary hypertension. 7. The right ventricular systolic pressure, as measured by Doppler, is 75.28mmHg. 8. There is no pericardial effusion. SWEATBAND DRUMMER: Sahara Leonard RDCS
[2021-06-28] MEDS: REMDESIVIR 100 MG in SODIUM CHLORIDE 0.9% 250 ML IVPB SCH (08:46)
[2021-06-28] MEDS: ZINC SULFATE 220 MG CAP PO SCH (08:47)
[2021-06-28] MEDS: METOPROLOL TARTRATE 25 MG TAB PO SCH ×3 (08:47→21:40)
[2021-06-28] MEDS: FUROSEMIDE 20 MG TAB PO SCH (08:47)
[2021-06-28] MEDS: ASCORBIC ACID 500 MG TAB PO SCH (08:47)
[2021-06-28] MEDS: dexAMETHasone 2 MG TAB PO SCH (08:47)
[2021-06-28] MEDS: CHOLECALCIFEROL 25 MCG (1000 IU) TABLET PO SCH (08:47)
[2021-06-28] MEDS: APIXABAN 5 MG TAB PO SCH ×2 (08:47→21:40)
[2021-06-28] MEDS: ALBUTEROL HFA INHALER INHALATION SCH ×4 (08:51→20:41)
[2021-06-28 10:53] LABS: Albumin 2.8 g/dL (3.5-5.0); Calcium 7.7 mg/dL (8.4-10.2); Total Bilirubin 1.3 mg/dL (0.2-1.3); Total Protein 5.2 g/dL (6.3-8.2)
[2021-06-28 10:59] LABS: Anisocytosis Slight; Basophils % (A) 1 %; Eosinophils % (A) 0 %; HCT 33.7 % (34.0-46.0); HGB 11.2 gm/dL (11.4-16.0); Hypochromasia Slight; Lymphocytes # (A) 0.5 k/uL (1.0-4.8); Lymphocytes % (A) 15 %; MCH 32.6 pg (25.0-35.0); MCHC 33.1 g/dL (31.0-37.0); MCV 98.3 fL (80.0-100.0); Macrocytosis Slight; Mean Platelet Volume 10.4; Monocytes # (A) 0.2 k/uL (0-1.0); Monocytes % (A) 5 %; Neutrophils # (A) 2.3 k/uL (1.3-7.7); Neutrophils % (A) 76 %; Platelet Count 135 k/uL (150-450); RBC 3.43 m/uL (3.80-5.40); RDW 16.1 % (11.5-15.5)
[2021-06-28 11:00] LABS: Potassium 4.8 mmol/L (3.5-5.1)
--- NOTE | 2021-06-28 12:08 | P.PN ---
Subjective HISTORY OF PRESENTING ILLNESS This is a pleasant 76-year-old female past medical history significant for chronic persistent atrial fibrillation on Eliquis, hypertension, dyslipidemia, tricuspid regurgitation, mild mitral regurgitation and severe pulmonary hypertension. She follows in the office with Dr. Goldman. We have been asked to see in consultation for syncope and A. fib. For the previous 4 days she has been feeling increasingly weak, fatigued and short of breath. Yesterday her daughter was making her something and asked her to come into the kitchen. When she got to the kitchen she was standing at the counter and started feeling acutely lightheaded and passed out. She denies having symptoms of chest pain or palpitations prior to passing out. On arrival EKG revealed atrial fibrillation heart rate of 89. Chest x-ray was negative for an acute cardiopulmonary process. CT of the brain obtained revealed no acute intracranial hemorrhage, midline shift or mass effect. Laboratory data reviewed, WBC 3.7, hemoglobin 11.4, platelets 130, INR 1.5, sodium 134, potassium 4.9, creatinine 1.5, magnesium 2.0, troponin 0.104, 0.567, 0.690 and she is positive for Covid. She has been vaccinated but no blister. Most recent echocardiogram obtained in the office January 2021 revealed mildly impaired LV systolic function with ejection fraction 47%, severe TR, moderate MR and severe pulmonary hypertension with an RVSP of 120 mmHg. She did have a cardiac catheterization performed in 2019 revealing normal coronary arteries. She follows with Dr. PATRICE Alberts for her pulmonary hypertension. Current daily cardiac medications include Eliquis 5 mg twice a day, Lasix 20 mg daily and metoprolol 25 mg twice a day. 06/28/2021 Patient seen and evaluated. She continues to cough and has some shortness of breath however improved little bit from yesterday. She continues to be in atrial fibrillation heart rate in the 80s. CT of the chest revealed bilateral pneumonia right greater than left. Echocardiogram obtained revealed preserved LV systolic function with ejection fraction 55-60% with RVSP of 75 mmHg. PHYSICAL EXAMINATION CONSTITUTIONAL: No apparent distress. HEENT: Head is normocephalic. Pupils are equal, round. Sclerae anicteric. Mucous membranes of the mouth are moist. No JVD. No carotid bruit. CHEST EXAMINATION: Lungs are clear to auscultation. No chest wall tenderness is noted on palpation or with deep breathing. HEART EXAMINATION: Irregular rate and rhythm. S1, S2 heard. Systolic ejection murmur at the apex, no gallops or rub. EXTREMITIES: 2+ peripheral pulses, no lower extremity edema and no calf tendern ess. ASSESSMENT COVID Syncope Chronic persistent atrial fibrillation on Eliquis Hypertension Dyslipidemia Pulmonary hypertension. PLAN Continue current medical regimen. We will follow along as needed, please call with further questions or concerns. Follow-up upon discharge with Dr. Goldman. Nurse Practitioner note has been reviewed, I agree with a documented findings and plan of care. Patient was seen and examined. Objective - Vital Signs Vital signs: Vital Signs Temp 98.2 F 06/28/21 08:00 Pulse 87 06/28/21 08:00 Resp 16 06/28/21 08:00 BP 97/52 06/28/21 08:00 Pulse Ox 91 L 06/28/21 08:00 Intake & Output 06/27/21 06/28/21 06/28/21 18:59 06:59 18:59 Intake Total 960 1465 250 Balance 960 1465 250 Weight 48.534 kg Intake: IV 10 10 Invasive Line 2 10 10 Intake, IV Titration 600 Amount Sodium Chloride 0.9% 1, 600 000 ml @ 50 mls/hr IV . Q20H JOLENE Rx#:[id number] Oral 360 1455 240 Other: Voiding Method Toilet Toilet Toilet # Voids 1 # Bowel Movements 2 - Labs CBC & Chem 7: 06/28/21 10:15 06/28/21 10:15 Labs: Abnormal Lab Results - Last 24 Hours (Table) 06/27/21 06/27/21 06/28/21 Range/Units 14:06 23:45 10:15 WBC 3.0 L (3.8-10.6) k/uL RBC 3.43 L (3.80-5.40) m/uL Hgb 11.2 L (11.4-16.0) gm/dL Hct 33.7 L (34.0-46.0) % RDW 16.1 H (11.5-15.5) % Plt Count 135 L (150-450) k/uL Lymphocytes # 0.5 L (1.0-4.8) k/uL D-Dimer 0.65 H (<0.60) mg/L FEU Sodium (137-145) mmol/L Chloride (98-107) mmol/L Carbon Dioxide (22-30) mmol/L BUN (7-17) mg/dL Creatinine (0.52-1.04) mg/dL Glucose (74-99) mg/dL POC Glucose (mg/dL) 164 H (75-99) mg/dL Calcium (8.4-10.2) mg/dL AST (14-36) U/L ALT (4-34) U/L Total Protein (6.3-8.2) g/dL Albumin (3.5-5.0) g/dL 06/28/21 Range/Units 10:15 WBC (3.8-10.6) k/uL RBC (3.80-5.40) m/uL Hgb (11.4-16.0) gm/dL Hct (34.0-46.0) % RDW (11.5-15.5) % Plt Count (150-450) k/uL Lymphocytes # (1.0-4.8) k/uL D-Dimer (<0.60) mg/L FEU Sodium 134 L (137-145) mmol/L Chloride 110 H (98-107) mmol/L Carbon Dioxide 14 L (22-30) mmol/L BUN 35 H (7-17) mg/dL Creatinine 1.22 H (0.52-1.04) mg/dL Glucose 173 H (74-99) mg/dL POC Glucose (mg/dL) (75-99) mg/dL Calcium 7.7 L (8.4-10.2) mg/dL AST 124 H (14-36) U/L ALT 100 H (4-34) U/L Total Protein 5.2 L (6.3-8.2) g/dL Albumin 2.8 L (3.5-5.0) g/dL Microbiology - Last 24 Hours (Table) 06/26/21 22:21 Blood Culture - Preliminary Blood No Growth after 24 hours
--- NOTE | 2021-06-28 12:58 | P.CONS ---
History of Present Illness - Reason for Consult Consult date: 06/27/21 COVID-19 pneumonia Requesting physician: Akosua Gayle - Chief Complaint Fever and shortness of breath x 4 days - History of Present Illness Patient is a 76-year-old female with a past medical history significant for COPD/pulmonary hypertension home O2 dependent, patient usually uses 3-5 L of nasal oxygen at home the patient was brought into the ER after apparently the patient felt dizzy and was found on the floor patient did have a fever of 101F. The patient states has been going on for the last 4 days patient be complaining of more shortness of breath over the last 4 days and also have a cough which is motivated density mostly dry in nature no pleuritic chest pain no hemoptysis denies any abdominal pain patient did have a covid vaccination 2 completed in October and November 2020 has not did get the booster, patient did have low sugar 100.2 she is hypoxic requiring 6 L nasal cannula, patient did have a leukopenia as well as lymphopenia crit was mildly elevated d- dimer 0.65, did have elevated troponin for the patient be seen by cardiology also elevated liver enzymes, patient did have a chest x-ray mild cardiac megaly critical nontender slightly patchy interstitial opacity, interstitial and patchy nodular opacity bilaterally patient has been admitted to the hospital infectious disease was consulted for her COVID-19 infection and need for numbness of the therapy Review of Systems Positive point has been mentioned in the HPI rest of the systems are negative Past Medical History Past Medical History: Atrial Fibrillation, GERD/Reflux, Hyperlipidemia, Hypertension, Osteoarthritis (OA) Additional Past Medical History / Comment(s): Mitral regurgitation, mild to moderate pulmonary HTN-per past medical hx/pt unaware, SOB with exertion, small hiatal hernia, current bilateral lower leg edema, occasional low back pain, arthritis bilateral hands. 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 Past Anesthesia/Blood Transfusion Reactions: No Reported Reaction Additional Past Anesthesia/Blood Transfusion Reaction / Comm: no hx blood transfusion Past Psychological History: No Psychological Hx Reported Additional Psychological History / Comment(s): Pt resides with her spouse. She is independent. Smoking Status: Former smoker Past Alcohol Use History: None Reported Additional Past Alcohol Use History / Comment(s): Pt started smoking in 7 and quit in 1977. She was a 2ppd smoker. Past Drug Use History: None Reported - Past Family History Mother Family Medical History: Cancer Additional Family Medical History / Comment(s): bowel Father Family Medical History: COPD Additional Family Medical History / Comment(s): emphysema Brother(s) Family Medical History: Cancer Additional Family Medical History / Comment(s): Bowel cancer. Medications and Allergies Home Medications Medication Instructions Recorded Confirmed Type Apixaban [Eliquis] 5 mg PO BID 11/09/18 06/26/21 History Metoprolol Tartrate [Lopressor] 25 mg PO BID 06/29/19 06/26/21 History Furosemide [Lasix] 20 mg PO DAILY #14 tab 07/04/19 06/26/21 Rx Acetaminophen [Tylenol] 650 mg PO TID PRN 06/26/21 06/26/21 History Fluticasone Propion/Salmeterol 1 puff INHALATION RT-DAILY 06/26/21 06/26/21 History [Fluticasone-Salmeterol 250-50] Ipratropium-Albuterol Nebulize 3 ml INHALATION RT-BID 06/26/21 06/26/21 History [Duoneb 0.5 mg-3 mg/3 ml Soln] Allergies Allergy/AdvReac Type Severity Reaction Status Date / Time No Known Allergies Allergy Verified 06/26/21 22:07 Physical Exam Vitals: Vital Signs Temp Pulse Resp BP Pulse Ox 06/28/21 12:00 98.8 F 78 16 101/54 90 L 06/28/21 08:00 98.2 F 87 16 97/52 91 L 06/28/21 04:00 82 18 115/62 97 06/28/21 00:00 98.1 F 79 22 101/56 96 06/27/21 20:00 100.2 F H 66 22 129/56 96 06/27/21 16:00 98.9 F 93 24 123/61 91 L Intake and Output 06/27/21 06/28/2121 22:59 06:59 14:59 Intake Total 1455 10 250 Balance 1455 10 250 Intake: IV 10 10 Invasive Line 2 10 10 Oral 1455 240 Other: Voiding Method Toilet Toilet Toilet # Voids 1 1 # Bowel Movements 2 Weight 48.534 kg GENERAL DESCRIPTION: An elderly female lying in bed, no distress. No tachypnea or accessory muscle of respiration use. HEENT: Shows Pallor , no scleral icterus. Oral mucous membrane is dry. No pharyngeal erythema or thrush NECK: Trachea central, no thyromegaly. LUNGS: Unlabored breathing. Coarse breath sounds bilaterally. No wheeze or crackle. HEART: S1, S2, regular rate and rhythm. No loud murmur ABDOMEN: Soft, no tenderness , guarding or rigidity, no organomegaly EXTREMITIES: No edema of feet. SKIN: No rash, no masses palpable. NEUROLOGICAL: The patient is awake, alert, oriented x3, mood and affect normal. Results CBC & Chem 7: 06/28/21 10:15 06/28/21 10:15 Labs: Abnormal Lab Results - Last 24 Hours (Table) 06/27/21 06/27/21 06/28/21 Range/Units 14:06 23:45 10:15 WBC 3.0 L (3.8-10.6) k/uL RBC 3.43 L (3.80-5.40) m/uL Hgb 11.2 L (11.4-16.0) gm/dL Hct 33.7 L (34.0-46.0) % RDW 16.1 H (11.5-15.5) % Plt Count 135 L (150-450) k/uL Lymphocytes # 0.5 L (1.0-4.8) k/uL D-Dimer 0.65 H (<0.60) mg/L FEU Sodium (137-145) mmol/L Chloride (98-107) mmol/L Carbon Dioxide (22-30) mmol/L BUN (7-17) mg/dL Creatinine (0.52-1.04) mg/dL Glucose (74-99) mg/dL POC Glucose (mg/dL) 164 H (75-99) mg/dL Calcium (8.4-10.2) mg/dL AST (14-36) U/L ALT (4-34) U/L Total Protein (6.3-8.2) g/dL Albumin (3.5-5.0) g/dL 06/28/21 Range/Units 10:15 WBC (3.8-10.6) k/uL RBC (3.80-5.40) m/uL Hgb (11.4-16.0) gm/dL Hct (34.0-46.0) % RDW (11.5-15.5) % Plt Count (150-450) k/uL Lymphocytes # (1.0-4.8) k/uL D-Dimer (<0.60) mg/L FEU Sodium 134 L (137-145) mmol/L Chloride 110 H (98-107) mmol/L Carbon Dioxide 14 L (22-30) mmol/L BUN 35 H (7-17) mg/dL Creatinine 1.22 H (0.52-1.04) mg/dL Glucose 173 H (74-99) mg/dL POC Glucose (mg/dL) (75-99) mg/dL Calcium 7.7 L (8.4-10.2) mg/dL AST 124 H (14-36) U/L ALT 100 H (4-34) U/L Total Protein 5.2 L (6.3-8.2) g/dL Albumin 2.8 L (3.5-5.0) g/dL Microbiology - Last 24 Hours (Table) 06/26/21 22:21 Blood Culture - Preliminary Blood No Growth after 24 hours Assessment and Plan Assessment: 1-patient presented to hospital with weakness and fall patient did have a fever increasing shortness of breath for the last 4 days in this patient with evidence of interstitial pneumonia secondary to COVID-19 infection hypoxic requiring more oxygen than she usually 2 at home likely representing acute COVID-19 infection and high risk of progression into respiratory failure, clinically no evidence of secondary bacterial pneumonia (1) COVID-19 Current Visit: Yes Status: Acute Code(s): U07.1 - COVID-19 SNOMED Code(s): 082218809 (2) Pneumonia Current Visit: Yes Status: Acute Code(s): J18.9 - PNEUMONIA, UNSPECIFIED ORGANISM SNOMED Code(s): 207904160 Plan: 1- patient will be started on Remdisivir per protocol at the patient is currently within therapeutic window for Remdisivir and will benefit from it 2-patient to continue with Eliquis,dexamethasone vitamin C and zinc 3-droplet isolation and respiratory support We will follow on clinical condition and cultures to further adjust medication i f needed Thank you for this consultation will follow this patient with you
--- NOTE | 2021-06-28 15:47 | P.CNPUL ---
History of Present Illness Consult date: 06/28/21 Requesting physician: Akosua Gayle Reason for consult: pneumonia Chief complaint: Fever, syncope, and dizziness History of present illness: This is a 76-year-old female with history of multiple medical problems including severe pulmonary hypertension, dyslipidemia, mitral regurgitation, chronic hypoxic respiratory failure, on oxygen at home, patient has been compliant with her oxygen most of the time. Patient had an episode wherein as she walked to go to the bathroom off her oxygen, patient felt dizzy, and she passed out. Patient was found on the floor, and she was brought into the hospital. Workup revealed evidence of pneumonia involving the hilar area and the right lower lobe. CT of the chest showed extensive interstitial and airspace infiltrates in the right lung. There is also minimal interstitial infiltrate noted in the left lower lobe. Patient was tested positive for COVID-19 by PCR. Required 6 L of oxygen to maintain O2 saturation of 90%, patient was admitted with the impression of acute hypoxic respiratory failure secondary to COVID-19 pneumonia, she was seen by infectious disease on consultation, and she was already placed on remdesivir along with the 19th cocktail. CBC showed leukopenia with WBC count of 3.0. There is also evidence of relative lymphopenia. And relative thrombocytopenia. D-dimer was 0.65. Electrolytes are normal renal profile initially showed creatinine of 1.50, however follow-up creatinine today is 1.2. Troponin was also noted to be elevated at 0.567 and 0.69. Liver enzymes were also borderline elevated with AST of 124 ALT of 100. He was borderline low. Bicarb was 16. No evidence of anion gap. Review of Systems Constitutional: Fever, no weight loss. Vague aches and weakness. HEENT: Negative Pulmonary: Hardly any cough, but she does have chronic shortness of breath. Cardiac: Negative GI: Negative Genitourinary: Negative Muscular skeletal: Negative Neurologic syncope as noted in HPI Psychiatric: Negative Hematologic: Negative Skin: Negative Past Medical History Past Medical History: Atrial Fibrillation, GERD/Reflux, Hyperlipidemia, Hypertension, Osteoarthritis (OA) Additional Past Medical History / Comment(s): Mitral regurgitation, mild to moderate pulmonary HTN-per past medical hx/pt unaware, SOB with exertion, small hiatal hernia, current bilateral lower leg edema, occasional low back pain, arthritis bilateral hands. 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 Past Anesthesia/Blood Transfusion Reactions: No Reported Reaction Additional Past Anesthesia/Blood Transfusion Reaction / Comment(s): no hx blood transfusion Past Psychological History: No Psychological Hx Reported Additional Psychological History / Comment(s): Pt resides with her spouse. She is independent. Smoking Status: Former smoker Past Alcohol Use History: None Reported Additional Past Alcohol Use History / Comment(s): Pt started smoking in 1958 and quit in 1977. She was a 2ppd smoker. Past Drug Use History: None Reported - Past Family History Mother Family Medical History: Cancer Additional Family Medical History / Comment(s): bowel Father Family Medical History: COPD Additional Family Medical History / Comment(s): emphysema Brother(s) Family Medical History: Cancer Additional Family Medical History / Comment(s): Bowel cancer. Medications and Allergies Home Medications Medication Instructions Recorded Confirmed Type Apixaban [Eliquis] 5 mg PO BID 11/09/18 06/26/21 History Metoprolol Tartrate [Lopressor] 25 mg PO BID 06/29/19 06/26/21 History Furosemide [Lasix] 20 mg PO DAILY #14 tab 07/04/19 06/26/21 Rx Acetaminophen [Tylenol] 650 mg PO TID PRN 06/26/21 06/26/21 History Fluticasone Propion/Salmeterol 1 puff INHALATION RT-DAILY 06/26/21 06/26/21 History [Fluticasone-Salmeterol 250-50] Ipratropium-Albuterol Nebulize 3 ml INHALATION RT-BID 06/26/21 06/26/21 History [Duoneb 0.5 mg-3 mg/3 ml Soln] Allergies Allergy/AdvReac Type Severity Reaction Status Date / Time No Known Allergies Allergy Verified 06/26/21 22:07 Physical Exam Vitals: Vital Signs Temp Pulse Resp BP Pulse Ox 06/28/21 12:00 98.8 F 78 16 101/54 90 L 11/21/21 08:00 98.2 F 87 16 97/52 91 L 06/28/21 04:00 82 18 115/62 97 06/28/21 00:00 98.1 F 79 22 101/56 96 06/27/21 20:00 100.2 F H 66 22 129/56 96 06/27/21 16:00 98.9 F 93 24 123/61 91 L Intake and Output 06/28/21 06/28/21 06/28/21 06:59 14:59 22:59 Intake Total 10 440 Balance 10 440 Intake: IV 10 20 Invasive Line 2 10 20 Oral 420 Other: Voiding Method Toilet Toilet # Voids 1 # Bowel Movements 2 Weight 48.534 kg GENERAL DESCRIPTION: 76-year-old female in no distress. On 6 L nasal cannula. Head: Atraumatic, normocephalic. HEENT: Shows Pallor , nonicteric, PERRLA, EOMI. Moist mucous membranes. NECK: Trachea central, no neck masses no JVD no stridor. LUNGS: Symmetrical chest expansion, coarse breath sounds at the bases bilaterally. No rhonchi and no wheezes. HEART: Normal S1 and S2, no S3 gallop, no murmur. ABDOMEN: Soft nontender no megaly no rebound no guarding. EXTREMITIES: No clubbing edema or cyanosis. SKIN: No rash NEUROLOGICAL: Alert and oriented 3 focal deficits. Psychiatric: Normal mood affect and normal mental status examination. Results - Laboratory Findings CBC and BMP: 06/28/21 10:15 06/28/21 10:15 PT/INR, D-dimer PT 14.9 sec (9.0-12.0) H 06/26/21 21:27 INR 1.5 (<1.2) H 06/26/21 21:27 D-Dimer 0.65 mg/L FEU (<0.60) H 06/27/21 14:06 Abnormal lab findings: Abnormal Labs 06/26/21 06/26/21 06/26/21 21:27 21:27 21:27 WBC RBC 3.58 L Hgb Hct MCV RDW 15.7 H Plt Count 147 L Lymphocytes # 0.6 L PT 14.9 H INR 1.5 H D-Dimer Sodium 132 L Chloride Carbon Dioxide 17 L BUN 30 H Creatinine 1.52 H Glucose POC Glucose (mg/dL) Calcium 8.2 L Total Bilirubin 1.4 H AST 253 H ALT 118 H Troponin I Total Protein 5.6 L Albumin 3.3 L SARS-CoV-2 (PCR) 06/26/21 06/26/21 06/27/21 21:27 22:10 01:01 WBC RBC Hgb Hct MCV RDW Plt Count Lymphocytes # PT INR D-Dimer Sodium Chloride Carbon Dioxide BUN Creatinine Glucose POC Glucose (mg/dL) Calcium Total Bilirubin AST ALT Troponin I 0.104 H* 0.567 H* Total Protein Albumin SARS-CoV-2 (PCR) Detected A 06/27/21 06/27/21 06/27/21 03:35 03:35 03:35 WBC 3.7 L RBC 3.59 L Hgb Hct MCV 100.5 H RDW 15.6 H Plt Count 130 L Lymphocytes # 0.5 L PT INR D-Dimer Sodium 134 L Chloride Carbon Dioxide 16 L BUN 31 H Creatinine 1.50 H Glucose POC Glucose (mg/dL) Calcium Total Bilirubin AST ALT Troponin I 0.690 H* Total Protein Albumin SARS-CoV-2 (PCR) 06/27/21 06/27/21 06/28/21 14:06 23:45 10:15 WBC 3.0 L RBC 3.43 L Hgb 11.2 L Hct 33.7 L MCV RDW 16.1 H Plt Count 135 L Lymphocytes # 0.5 L PT INR D-Dimer 0.65 H Sodium Chloride Carbon Dioxide BUN Creatinine Glucose POC Glucose (mg/dL) 164 H Calcium Total Bilirubin AST ALT Troponin I Total Protein Albumin SARS-CoV-2 (PCR) 06/28/21 10:15 WBC RBC Hgb Hct MCV RDW Plt Count Lymphocytes # PT INR D-Dimer Sodium 134 L Chloride 110 H Carbon Dioxide 14 L BUN 35 H Creatinine 1.22 H Glucose 173 H POC Glucose (mg/dL) Calcium 7.7 L Total Bilirubin AST 124 H ALT 100 H Troponin I Total Protein 5.2 L Albumin 2.8 L SARS-CoV-2 (PCR) - Diagnostic Findings CT scan - chest: image reviewed (As noted in HPI.) Assessment and Plan Assessment: Impression: Acute on chronic hypoxic failure secondary to COVID-19 pneumonia and history of underlying pulmonary hypertension Syncopal episode most likely secondary to her hypoxia and underlying pulmonary hypertension Hypovolemic hyponatremia History of chronic pulmonary hypertension History of chronic hypoxic respiratory failure Chronic atrial fibrillation, previous cardioversion. Benign essential hypertension History of mitral regurgitation Recommendation: Continue oxygen and titrate accordingly Continue the COVID-19 cocktail. Continue remdesivir Resume home meds. Continue Decadron. Check pro calcitonin level Continue to monitor inflammatory markers We will continue to follow. Time with Patient: Greater than 30
[2021-06-28 16:37] LABS: C Reactive Protein 4.9 mg/dL (<1.0)
[2021-06-28] MEDS: SODIUM CHLORIDE 0.9% 1,000 ML IV SCH ×2 (16:49→21:41)
[2021-06-28 20:17] LABS: Glucose,Whole Blood 183 mg/dL (75-99)
--- NOTE | 2021-06-28 21:36 | PN ---
PROGRESS NOTE I am covering for Dr. Toth. DATE OF SERVICE: 06/28/2021. This 76-year-old woman with a past medical history of multiple medical multiple medical problems was admitted with fever, syncope, and dizziness. The patient also had acute Covid 19 infection, acute bilateral interstitial pneumonia, acute hypoxic respiratory failure. Patient started on Remdesivir. The patient is being closely monitored. The venous Doppler study was also noted. A chest CT was also noted. The venous Doppler showed no evidence of DVT at this time. Past medical history reviewed. REVIEW OF SYSTEMS: Cardiovascular: No angina or palpitations. Respiratory: As mentioned earlier. GI as mentioned earlier. : No dysuria. Nervous system: No numbness or weakness. CURRENT MEDICATIONS: Reviewed and include: Tylenol, Boon, Ventolin. Xanax, Eliquis, vitamin C, vitamin D3. Doses and other medications noted. Dexamethasone. PHYSICAL EXAMINATION: Patient is alert, oriented x 2. Pulse 87. Blood pressure 95/56, respirations 16, temperature 98.8, pulse ox 91% on 6 L. HEENT: Conjunctivae normal. NECK: No JVD. CARDIOVASCULAR: S1, S2 muffled. RESPIRATORY: Breath sounds diminished in the bases. A few scattered rhonchi. ABDOMEN: Soft. NERVOUS SYSTEM: No focal deficits. LABS: WBC 3, hemoglobin 11.2, sodium 134. ASSESSMENT: 1. Acute COVID-19 infection with acute bilateral interstitial pneumonia with acute hypoxic respiratory failure present on admission. 2. Troponin 0.04. Possible acute urn-AY-yfwhfyx-elevation myocardial infarction. 3. Elevated AST, ALT, bilirubin, possibly hepatitis acute. 4. Increased creatinine with acute renal failure with acute tubular necrosis present on admission. 5. Mild acidosis present on admission. 6. Hyponatremia. 7. Mild leukopenia. 8. Increased MCV. 9. Thrombocytopenia. 10.Mild lymphopenia. 11.History of atrial fibrillation. 12.History of gastroesophageal reflux disease. 13.Hypertension. 14.Hyperlipidemia. 15.History of degenerative joint disease. 16.History of mitral regurgitation. 17.Mild to moderate pulmonary hypertension. 18.History of shortness of breath. 19.History of hiatal hernia. 20.History of occasional low back pain. 21.History of degenerative joint disease. 22.History of cardioversion. 23.Remote history of nicotine dependence. 24.Chronic hypoxic respiratory failure. 25.FULL CODE. RECOMMENDATIONS AND DISCUSSION: Recommend to continue current medications. Continue with monitoring, symptomatic treatment. Repeat labs. Creatinine is slightly better today. Continue with Remdesivir. Follow closely with multiple consultants. Prognosis guarded because of multiple complex medical issues. Further recommendations to follow. Dr. Toth will follow tomorrow. MMODL / IJN: [id number] /
[2021-06-28] MEDS: INSULIN ASPART (NovoLOG) 100 UNIT/ML VIAL SQ SCH (21:41)
[2021-06-29 06:24] LABS: Glucose,Whole Blood 116 mg/dL (75-99)
[2021-06-29] MEDS: INSULIN ASPART (NovoLOG) 100 UNIT/ML VIAL SQ SCH ×4 (06:25→20:53)
[2021-06-29] MEDS: PANTOPRAZOLE 40 MG TABLET PO SCH (06:25)
[2021-06-29] MEDS: ALBUTEROL HFA INHALER INHALATION SCH ×4 (07:30→19:12)
--- NOTE | 2021-06-29 08:01 | PN ---
PROGRESS NOTE DATE OF SERVICE: 06/28/2021 REASON FOR FOLLOWUP: COVID-19 pneumonia. INTERVAL HISTORY: The patient is afebrile today. The patient is breathing slightly comfortably; still requiring 6 L nasal cannula. The patient denies having any chest pain. She did have a cough, not bringing up any sputum. No nausea, no vomiting. No abdominal pain or diarrhea. PHYSICAL EXAMINATION: Blood pressure 95/56, pulse of 87, temperature 98.8. She is 91% on 6 L nasal cannula. General description is an elderly female lying in bed in no distress. Respiratory system: Unlabored breathing, decreased intensity of breath sounds. No wheeze. Heart S1, S2. Regular rate and rhythm. Abdomen soft, no tenderness. LABS: Hemoglobin is 11, white count 3.03 1.22. DIAGNOSTIC IMPRESSION AND PLAN: Patient with acute COVID-19 pneumonia this patient with underlying chronic obstructive pulmonary disease, home O2-dependent. Patient to continue with remdesivir, day number 2, in addition to dexamethasone, Eliquis, zinc and ascorbic acid along with respiratory support. Monitor clinical course closely. MMODL / IJN: [id number] /
[2021-06-29] MEDS: ZINC SULFATE 220 MG CAP PO SCH (08:47)
[2021-06-29] MEDS: CHOLECALCIFEROL 25 MCG (1000 IU) TABLET PO SCH (08:47)
[2021-06-29] MEDS: dexAMETHasone 2 MG TAB PO SCH (08:47)
[2021-06-29] MEDS: FUROSEMIDE 20 MG TAB PO SCH (08:48)
[2021-06-29] MEDS: ASCORBIC ACID 500 MG TAB PO SCH (08:48)
[2021-06-29] MEDS: METOPROLOL TARTRATE 25 MG TAB PO SCH ×3 (08:48→20:53)
[2021-06-29] MEDS: APIXABAN 5 MG TAB PO SCH ×2 (08:49→20:53)
[2021-06-29 10:22] LABS: Anisocytosis Slight; Basophils % (A) 0 %; Eosinophils % (A) 0 %; HCT 36.2 % (34.0-46.0); Hypochromasia Slight; Lymphocytes # (A) 0.5 k/uL (1.0-4.8); Lymphocytes % (A) 9 %; MCHC 33.1 g/dL (31.0-37.0); MCV 96.9 fL (80.0-100.0); Mean Platelet Volume 10.5; Monocytes # (A) 0.2 k/uL (0-1.0); Monocytes % (A) 3 %; Neutrophils # (A) 5.1 k/uL (1.3-7.7); Neutrophils % (A) 87 %; Platelet Count 181 k/uL (150-450); RBC 3.74 m/uL (3.80-5.40); RDW 16.2 % (11.5-15.5); WBC 5.8 k/uL (3.8-10.6)
[2021-06-29 10:37] LABS: Calcium 8.4 mg/dL (8.4-10.2); Potassium 4.5 mmol/L (3.5-5.1)
[2021-06-29 12:04] LABS: Glucose,Whole Blood 166 mg/dL (75-99)
[2021-06-29] MEDS: REMDESIVIR 100 MG in SODIUM CHLORIDE 0.9% 250 ML IVPB SCH (12:36)
--- NOTE | 2021-06-29 14:59 | P.PN ---
Subjective Progress Note Date: 06/29/21 Principal diagnosis: Syncope. This is a 76-year-old female with history of multiple medical problems including severe pulmonary hypertension, dyslipidemia, mitral regurgitation, chronic hypoxic respiratory failure, on oxygen at home, patient has been compliant with her oxygen most of the time. Patient had an episode wherein as she walked to go to the bathroom off her oxygen, patient felt dizzy, and she passed out. Patient was found on the floor, and she was brought into the hospital. Workup revealed evidence of pneumonia involving the hilar area and the right lower lobe. CT of the chest showed extensive interstitial and airspace infiltrates in the right lung. There is also minimal interstitial infiltrate noted in the left lower lobe. Patient was tested positive for COVID-19 by PCR. Required 6 L of oxygen to maintain O2 saturation of 90%, patient was admitted with the impression of acute hypoxic respiratory failure secondary to COVID-19 pneumonia, she was seen by infectious disease on consultation, and she was already placed on remdesivir along with the 19th cocktail. CBC showed leukopenia with WBC count of 3.0. There is also evidence of relative lymphopenia. And relative thrombocytopenia. D-dimer was 0.65. Electrolytes are normal renal profile initially showed creatinine of 1.50, however follow-up creatinine today is 1.2. Troponin was also noted to be elevated at 0.567 and 0.69. Liver enzymes were also borderline elevated with AST of 124 ALT of 100. He was borderline low. Bicarb was 16. No evidence of anion gap. Progress note dated 06/29/2021. 76-year-old female seen by my partner in consultation yesterday. The patient has a history of severe pulmonary hypertension, hyperlipidemia, mitral valve disease, chronic hypoxemic respiratory failure, and was admitted to the hospital with a diagnosis of syncope. Skin the chest showed extensive interstitial and ears. She did test positive for coronavirus by PCR. Currently, she is on 6 L nasal cannula. She also getting saline at 50 mL an hour. Currently, white count 5.8, hemoglobin 12, hematocrit 36.2, platelet count 181,000. Sodium 136, potassium 4.5, chlorides 107, CO2 18, anion gap 11, BUN 42, creatinine 1.28. Doppler studies of the lower extremities were negative for DVT. Computed tomography scan was consistent with coronavirus associated pneumonia. Objective - Vital Signs Vital signs: Vital Signs Temp 97.7 F 06/29/21 08:00 Pulse 85 06/29/21 12:00 Resp 16 06/29/21 12:00 BP 104/56 06/29/21 12:00 Pulse Ox 95 06/29/21 12:00 Intake & Output 06/28/21 06/29/21 06/29/21 18:59 06:59 18:59 Intake Total 1470 240 540 Balance 1470 240 540 Weight 49 kg Intake: IV 20 Invasive Line 2 20 Intake, IV Titration 850 Amount Remdesivir 200 mg In 250 Sodium Chloride 0.9% 250 ml @ 250 mls/hr IVPB ONCE ONE Rx#:[id number] Sodium Chloride 0.9% 1, 600 000 ml @ 50 mls/hr IV . Q20H [facility] Rx#:[id number] Oral 600 240 540 Other: Voiding Method Toilet Bedside Commode Bedside Commode # Voids 2 1 2 # Bowel Movements 1 1 - Exam No acute distress, oriented 3. No respiratory distress. No conversational dyspnea or use of accessory muscles. The patient remains on 6 L nasal cannula. HEENT examination is grossly unremarkable. Neck supple. Full range of motion. No adenopathy thyromegaly or neck vein distention. Cardiovascular examination reveals regular rhythm rate. S1-S2 normal. No S3 or S4. No discernible murmur noted. Heart rate 85 bpm. Lungs reveal bilateral rhonchi and crackles. No wheezes. Breath sounds are equal bilaterally. Saturations are 95% on 6 L nasal cannula. Abdomen soft bowel sounds are heard. No masses or tenderness. Extremities are intact. No cyanosis clubbing or edema. Skin is without rash or lesion. Neurologic examination is brief but nonfocal. - Labs CBC & Chem 7: 06/29/21 09:15 06/29/21 09:15 Labs: Abnormal Lab Results - Last 24 Hours (Table) 06/28/21 06/28/21 06/28/21 Range/Units 10:15 10:15 20:15 RBC (3.80-5.40) m/uL RDW (11.5-15.5) % Lymphocytes # (1.0-4.8) k/uL Sodium (137-145) mmol/L Carbon Dioxide (22-30) mmol/L BUN (7-17) mg/dL Creatinine (0.52-1.04) mg/dL Glucose (74-99) mg/dL POC Glucose (mg/dL) 183 H (75-99) mg/dL Lactate Dehydrogenase 1454 H (313-618) U/L C-Reactive Protein 4.9 H (<1.0) mg/dL Procalcitonin 1.34 H (0.02-0.09) ng/mL 06/29/21 06/29/21 06/29/21 Range/Units 06:23 09:15 09:15 RBC 3.74 L (3.80-5.40) m/uL RDW 16.2 H (11.5-15.5) % Lymphocytes # 0.5 L (1.0-4.8) k/uL Sodium 136 L (137-145) mmol/L Carbon Dioxide 18 L (22-30) mmol/L BUN 42 H (7-17) mg/dL Creatinine 1.28 H (0.52-1.04) mg/dL Glucose 187 H (74-99) mg/dL POC Glucose (mg/dL) 116 H (75-99) mg/dL Lactate Dehydrogenase (313-618) U/L C-Reactive Protein (<1.0) mg/dL Procalcitonin (0.02-0.09) ng/mL 06/29/21 Range/Units 12:03 RBC (3.80-5.40) m/uL RDW (11.5-15.5) % Lymphocytes # (1.0-4.8) k/uL Sodium (137-145) mmol/L Carbon Dioxide (22-30) mmol/L BUN (7-17) mg/dL Creatinine (0.52-1.04) mg/dL Glucose (74-99) mg/dL POC Glucose (mg/dL) 166 H (75-99) mg/dL Lactate Dehydrogenase (313-618) U/L C-Reactive Protein (<1.0) mg/dL Procalcitonin (0.02-0.09) ng/mL Microbiology - Last 24 Hours (Table) 06/26/21 22:21 Blood Culture - Preliminary Blood No Growth after 48 hours Assessment and Plan Assessment: Acute hypoxemic respiratory failure secondary to coronavirus associated pneumonia. History of pulmonary hypertension. History of syncope, etiology unclear, possibly related to underlying hypoxemia. Hypovolemic hyponatremia. History of chronic atrial fibrillation. Benign essential hypertension. History of mitral regurgitation. Plan: Plan dated 06/29/2021. The patient continues on oxygen, at 6 L. The patient will continue on Decadron, as well as vitamin C, vitamin D3, and zinc. The patient's home meds resumed. In addition, the patient continues on Eliquis, albuterol inhaler, and REM. We will continue to follow make recommendations where appropriate. Prognosis is guarded. Time with Patient: Less than 30
--- NOTE | 2021-06-29 15:58 | P.PN ---
Subjective Progress Note Date: 06/29/21 This 68-year-old female admitted with acute code with pneumonia, hypoxic respiratory failure and multiple other medical issues. Maintained on gentle IV fluid hydration, Covid cocktail, Remdesivir, maintaining O2 sats in the 90s on 6 L nasal cannula. Afebrile, normal WBC. BUN 42, creatinine 1.28. Denies nausea vomiting or diarrhea. Reports minimal cough. Denies chest pain, palpitations or shortness of breath. Reports exertional lightheadedness. Sodium 136. Blood sugars controlled. Objective - Vital Signs Vital signs: Vital Signs Temp 97.7 F 06/29/21 08:00 Pulse 85 06/29/21 12:00 Resp 16 06/29/21 12:00 BP 104/56 06/29/21 12:00 Pulse Ox 95 06/29/21 12:00 Intake & Output 06/28/21 06/29/21 06/29/21 18:59 06:59 18:59 Intake Total 1470 240 540 Balance 1470 240 540 Weight 49 kg Intake: IV 20 Invasive Line 2 20 Intake, IV Titration 850 Amount Remdesivir 200 mg In 250 Sodium Chloride 0.9% 250 ml @ 250 mls/hr IVPB ONCE ONE Rx#:[id number] Sodium Chloride 0.9% 1, 600 000 ml @ 50 mls/hr IV . Q20H [facility] Rx#:[id number] Oral 600 240 540 Other: Voiding Method Toilet Bedside Commode Bedside Commode # Voids 2 1 2 # Bowel Movements 1 1 - Exam PHYSICAL EXAM: VITAL SIGNS: As above GENERAL: Alert and oriented 3, Sitting up in bed, no acute distress HEENT: Conjunctivae normal. eyes normal. NECK: Supple, No JVD. CARDIOVASCULAR: S1, S2 regular. Systolic murmur. RESPIRATION: Breath sounds diminished in the bases.Scattered rhonchi. ABDOMEN: Soft, nontender . No guarding. no masses palpable.Bowel sounds heard. LEGS: No edema. no swelling. NERVOUS SYSTEM: Cranial N 2-12 grossly normal. Moves all 4 limbs.Diffuse weakness. No focal deficits. Strength and sensation grossly intact. Skin: Warm and dry, no rash - Labs CBC & Chem 7: 06/29/21 09:15 06/29/21 09:15 Labs: Abnormal Lab Results - Last 24 Hours (Table) 06/28/21 06/28/2121 Range/Units 10:15 10:15 20:15 RBC (3.80-5.40) m/uL RDW (11.5-15.5) % Lymphocytes # (1.0-4.8) k/uL Sodium (137-145) mmol/L Carbon Dioxide (22-30) mmol/L BUN (7-17) mg/dL Creatinine (0.52-1.04) mg/dL Glucose (74-99) mg/dL POC Glucose (mg/dL) 183 H (75-99) mg/dL Lactate Dehydrogenase 1454 H (313-618) U/L C-Reactive Protein 4.9 H (<1.0) mg/dL Procalcitonin 1.34 H (0.02-0.09) ng/mL 06/29/21 06/29/21 06/29/21 Range/Units 06:23 09:15 09:15 RBC 3.74 L (3.80-5.40) m/uL RDW 16.2 H (11.5-15.5) % Lymphocytes # 0.5 L (1.0-4.8) k/uL Sodium 136 L (137-145) mmol/L Carbon Dioxide 18 L (22-30) mmol/L BUN 42 H (7-17) mg/dL Creatinine 1.28 H (0.52-1.04) mg/dL Glucose 187 H (74-99) mg/dL POC Glucose (mg/dL) 116 H (75-99) mg/dL Lactate Dehydrogenase (313-618) U/L C-Reactive Protein (<1.0) mg/dL Procalcitonin (0.02-0.09) ng/mL 06/29/21 Range/Units 12:03 RBC (3.80-5.40) m/uL RDW (11.5-15.5) % Lymphocytes # (1.0-4.8) k/uL Sodium (137-145) mmol/L Carbon Dioxide (22-30) mmol/L BUN (7-17) mg/dL Creatinine (0.52-1.04) mg/dL Glucose (74-99) mg/dL POC Glucose (mg/dL) 166 H (75-99) mg/dL Lactate Dehydrogenase (313-618) U/L C-Reactive Protein (<1.0) mg/dL Procalcitonin (0.02-0.09) ng/mL Microbiology - Last 24 Hours (Table) 06/26/21 22:21 Blood Culture - Preliminary Blood No Growth after 48 hours Assessment and Plan Assessment: Acute Covid-19 pneumonia Acute hypoxic respiratory failure secondary to the above Elevated troponins, possible acute non-STEMI, cardiology following. Hypovolemic hyponatremia Acute renal failure Pulmonary hypertension, severe Chronic atrial fibrillation Hypertension Severe tricuspid regurgitation Plan: Continue on current medication regime ,monitoring and symptomatic treatmen t. Maintained on Remdesivir as per ID. Continues on Covid cocktail. Maintain gentle IV fluid hydration, bronchodilators. The impression and plan of care has been dictated as directed. : I performed a history and examination of this patient, discussed the same with the dictator. I agree with the dictator's note ,documented as a scribe. Any additional findings or plans will be noted.
[2021-06-29 16:34] LABS: Glucose,Whole Blood 179 mg/dL (75-99)
[2021-06-29 20:28] LABS: Glucose,Whole Blood 222 mg/dL (75-99)
--- NOTE | 2021-06-29 22:26 | PN ---
PROGRESS NOTE DATE OF SERVICE: 06/29/2021 REASON FOR FOLLOWUP: COVID-19 pneumonia. INTERVAL HISTORY: The patient is afebrile. The patient is breathing slightly comfortably. The patient denies having any chest pain. Still having a cough. No worsening sputum production. No abdominal pain or diarrhea. PHYSICAL EXAMINATION: Blood pressure is 115/70 with a pulse of 87, temperature 98.1. She is 90% on 6 L nasal cannula. General description is an elderly female lying in bed in no distress. Respiratory system: Unlabored breathing, decreased intensity of breath sounds. No wheeze. Heart S1, S2. Regular rate and rhythm. Abdomen soft, no tenderness. Extremities no edema of the feet. LABS: Hemoglobin is 12, white count 5.8. Creatinine is 1.28. DIAGNOSTIC IMPRESSION AND PLAN: Patient with acute COVID-19 pneumonia in this patient who does have minimal clinical improvement. Patient is currently on remdesivir, day number 3; to continue along with dexamethasone, Lovenox, zinc and ascorbic acid and respiratory support . Monitor clinical course closely. Continue with supportive care. MMODL / IJN: [id number] /
[2021-06-30] MEDS: SODIUM CHLORIDE 0.9% 1,000 ML IV SCH (05:48)
[2021-06-30 05:53] LABS: Glucose,Whole Blood 140 mg/dL (75-99)
[2021-06-30] MEDS: PANTOPRAZOLE 40 MG TABLET PO SCH (06:12)
[2021-06-30] MEDS: INSULIN ASPART (NovoLOG) 100 UNIT/ML VIAL SQ SCH ×4 (06:12→21:07)
[2021-06-30 08:02] LABS: Calcium 8.6 mg/dL (8.4-10.2); Potassium 4.8 mmol/L (3.5-5.1)
[2021-06-30] MEDS: ALBUTEROL HFA INHALER INHALATION SCH ×4 (08:23→21:07)
[2021-06-30] MEDS: ZINC SULFATE 220 MG CAP PO SCH (08:59)
[2021-06-30] MEDS: APIXABAN 5 MG TAB PO SCH ×2 (08:59→21:06)
[2021-06-30] MEDS: dexAMETHasone 2 MG TAB PO SCH (08:59)
[2021-06-30] MEDS: FUROSEMIDE 20 MG TAB PO SCH (08:59)
[2021-06-30] MEDS: ASCORBIC ACID 500 MG TAB PO SCH (08:59)
[2021-06-30] MEDS: CHOLECALCIFEROL 25 MCG (1000 IU) TABLET PO SCH (08:59)
[2021-06-30] MEDS: METOPROLOL TARTRATE 25 MG TAB PO SCH ×3 (08:59→21:06)
[2021-06-30] MEDS: REMDESIVIR 100 MG in SODIUM CHLORIDE 0.9% 250 ML IVPB SCH (09:00)
[2021-06-30 12:34] LABS: Glucose,Whole Blood 137 mg/dL (75-99)
--- NOTE | 2021-06-30 15:33 | P.PN ---
Subjective Progress Note Date: 06/30/21 Principal diagnosis: Syncope. This is a 76-year-old female with history of multiple medical problems including severe pulmonary hypertension, dyslipidemia, mitral regurgitation, chronic hypoxic respiratory failure, on oxygen at home, patient has been compliant with her oxygen most of the time. Patient had an episode wherein as she walked to go to the bathroom off her oxygen, patient felt dizzy, and she passed out. Patient was found on the floor, and she was brought into the hospital. Workup revealed evidence of pneumonia involving the hilar area and the right lower lobe. CT of the chest showed extensive interstitial and airspace infiltrates in the right lung. There is also minimal interstitial infiltrate noted in the left lower lobe. Patient was tested positive for COVID-19 by PCR. Required 6 L of oxygen to maintain O2 saturation of 90%, patient was admitted with the impression of acute hypoxic respiratory failure secondary to COVID-19 pneumonia, she was seen by infectious disease on consultation, and she was already placed on remdesivir along with the 19th cocktail. CBC showed leukopenia with WBC count of 3.0. There is also evidence of relative lymphopenia. And relative thrombocytopenia. D-dimer was 0.65. Electrolytes are normal renal profile initially showed creatinine of 1.50, however follow-up creatinine today is 1.2. Troponin was also noted to be elevated at 0.567 and 0.69. Liver enzymes were also borderline elevated with AST of 124 ALT of 100. He was borderline low. Bicarb was 16. No evidence of anion gap. Progress note dated 06/29/2021. 76-year-old female seen by my partner in consultation yesterday. The patient has a history of severe pulmonary hypertension, hyperlipidemia, mitral valve disease, chronic hypoxemic respiratory failure, and was admitted to the hospital with a diagnosis of syncope. Skin the chest showed extensive interstitial and ears. She did test positive for coronavirus by PCR. Currently, she is on 6 L nasal cannula. She also getting saline at 50 mL an hour. Currently, white count 5.8, hemoglobin 12, hematocrit 36.2, platelet count 181,000. Sodium 136, potassium 4.5, chlorides 107, CO2 18, anion gap 11, BUN 42, creatinine 1.28. Doppler studies of the lower extremities were negative for DVT. Computed tomography scan was consistent with coronavirus associated pneumonia. Progress note dated 06/30/2021. 76-year-old female again seen in room 384. The patient's currently on 8 L nasal cannula. In addition, the patient's getting saline at 50 mL an hour. The patient has a history of severe pulmonary hypertension, hyperlipidemia, mitral valve disease, chronic hypoxemic respiratory failure, and was admitted to the hospital with a diagnosis of syncope. She did test positive for coronavirus infection. Yesterday she was on 6 L of oxygen. Today she is up to 8 L. She does not appear to be practically short of breath, and she states that she's feeling "fine". Sodium 136, potassium 4.8, chlorides 109, CO2 20, anion gap 7, BUN 38, and creatinine 1.18. Objective - Vital Signs Vital signs: Vital Signs Temp 97.6 F 06/30/21 11:38 Pulse 96 06/30/21 11:38 Resp 20 06/30/21 11:38 BP 132/77 06/30/21 11:38 Pulse Ox 93 L 06/30/21 11:57 Intake & Output 06/29/21 06/30/21 06/30/21 18:59 06:59 18:59 Intake Total 720 510 Output Total 560 Balance 720 -560 510 Weight 66.2 kg Intake: IV 10 Invasive Line 2 10 Oral 720 500 Output: Urine 560 Other: Voiding Method Bedside Commode Bedside Commode # Voids 2 1 1 # Bowel Movements 1 1 - Exam No acute distress, oriented 3. No respiratory distress. No conversational dyspnea or use of accessory muscles. The patient remains on 8 L nasal cannula. Saturations are 93%. HEENT examination is grossly unremarkable. Neck supple. Full range of motion. No adenopathy thyromegaly or neck vein distention. Cardiovascular examination reveals regular rhythm rate. S1-S2 normal. No S3 or S4. No discernible murmur noted. Heart rate 96 bpm. Lungs reveal bilateral rhonchi and crackles. No wheezes. Breath sounds are equal bilaterally. Saturations are 93% on 8 L nasal cannula. Abdomen soft bowel sounds are heard. No masses or tenderness. Extremities are intact. No cyanosis clubbing or edema. Skin is without rash or lesion. Neurologic examination is brief but nonfocal. - Labs CBC & Chem 7: 06/29/21 09:15 06/30/21 06:45 Labs: Abnormal Lab Results - Last 24 Hours (Table) 06/29/21 06/29/21 06/30/21 Range/Units 16:32 20:26 05:50 Sodium (137-145) mmol/L Chloride (98-107) mmol/L Carbon Dioxide (22-30) mmol/L BUN (7-17) mg/dL Creatinine (0.52-1.04) mg/dL Glucose (74-99) mg/dL POC Glucose (mg/dL) 179 H 222 H 140 H (75-99) mg/dL 06/30/21 06/30/21 Range/Units 06:45 12:25 Sodium 136 L (137-145) mmol/L Chloride 109 H (98-107) mmol/L Carbon Dioxide 20 L (22-30) mmol/L BUN 38 H (7-17) mg/dL Creatinine 1.18 H (0.52-1.04) mg/dL Glucose 124 H (74-99) mg/dL POC Glucose (mg/dL) 137 H (75-99) mg/dL Microbiology - Last 24 Hours (Table) 06/26/21 22:21 Blood Culture - Preliminary Blood No Growth after 72 hours Assessment and Plan Assessment: Acute hypoxemic respiratory failure secondary to coronavirus associated pneumonia. History of pulmonary hypertension. History of syncope, etiology unclear, possibly related to underlying hypoxemia. Hypovolemic hyponatremia. History of chronic atrial fibrillation. Benign essential hypertension. History of mitral regurgitation. Plan: Plan dated 06/29/2021. The patient continues on oxygen, at 6 L. The patient will continue on Decadron, as well as vitamin C, vitamin D3, and zinc. The patient's home meds resumed. In addition, the patient continues on Eliquis, albuterol inhaler, and REM. We will continue to follow make recommendations where appropriate. Prognosis is guarded. Plan dated 06/30/2021. The patient's oxygen requirements have been increased to 8 L. The patient appears to be in no distress. The patient continues on Decadron, vitamin C, vitamin D3, and zinc. The patient continues on Eliquis. She is also on albuterol inhaler, and REM. The patient's overall prognosis is guarded. We will continue to follow and make recommendations where appropriate. Clinically, the patient looks stable she states that she's feeling fine. She does not feel any worse today than she did yesterday according to her. Time with Patient: Less than 30
--- NOTE | 2021-06-30 16:14 | P.PN ---
Subjective Progress Note Date: 06/30/21 This 68-year-old female admitted with acute code with pneumonia, hypoxic respiratory failure and multiple other medical issues. Maintained on gentle IV fluid hydration, Covid cocktail, Remdesivir, maintaining O2 sats in the 90s on 6 L nasal cannula. Afebrile, normal WBC. BUN 42, creatinine 1.28. Denies nausea vomiting or diarrhea. Reports minimal cough. Denies chest pain, palpitations or shortness of breath. Reports exertional lightheadedness. Sodium 136. Blood sugars controlled. 06/30/2021 Continues on Covid cocktail, Remdesivir, maintaining O2 sats in the 80s on 6 L, 90s on 8 L. Reports minimal cough. Slept well. Renal function improving, creatinine down to 1.18. Denies chest pain, palpitations or increased shortness of breath. Objective - Vital Signs Vital signs: Vital Signs Temp 97.6 F 06/30/21 11:38 Pulse 96 06/30/21 11:38 Resp 20 06/30/21 11:38 BP 132/77 06/30/21 11:38 Pulse Ox 93 L 06/30/21 11:57 Intake & Output 06/29/21 06/30/21 06/30/21 18:59 06:59 18:59 Intake Total 720 510 Output Total 560 Balance 720 -560 510 Weight 66.2 kg Intake: IV 10 Invasive Line 2 10 Oral 720 500 Output: Urine 560 Other: Voiding Method Bedside Commode Bedside Commode # Voids 2 1 1 # Bowel Movements 1 1 - Exam PHYSICAL EXAM: VITAL SIGNS: As above GENERAL: Alert and oriented 3, Sitting up in bed, no acute distress HEENT: Conjunctivae normal. eyes normal. NECK: Supple, No JVD. CARDIOVASCULAR: S1, S2 regular. Systolic murmur. RESPIRATION: Breath sounds diminished in the bases.Scattered rhonchi. ABDOMEN: Soft, nontender . No guarding. no masses palpable.Bowel sounds heard. LEGS: No edema. no swelling. NERVOUS SYSTEM: Cranial N 2-12 grossly normal. Moves all 4 limbs.Diffuse weak ness. No focal deficits. Strength and sensation grossly intact. Skin: Warm and dry, no rash - Labs CBC & Chem 7: 06/29/21 09:15 06/30/21 06:45 Labs: Abnormal Lab Results - Last 24 Hours (Table) 06/29/21 06/29/21 06/30/21 Range/Units 16:32 20:26 05:50 Sodium (137-145) mmol/L Chloride (98-107) mmol/L Carbon Dioxide (22-30) mmol/L BUN (7-17) mg/dL Creatinine (0.52-1.04) mg/dL Glucose (74-99) mg/dL POC Glucose (mg/dL) 179 H 222 H 140 H (75-99) mg/dL 06/30/21 06/30/21 Range/Units 06:45 12:25 Sodium 136 L (137-145) mmol/L Chloride 109 H (98-107) mmol/L Carbon Dioxide 20 L (22-30) mmol/L BUN 38 H (7-17) mg/dL Creatinine 1.18 H (0.52-1.04) mg/dL Glucose 124 H (74-99) mg/dL POC Glucose (mg/dL) 137 H (75-99) mg/dL Microbiology - Last 24 Hours (Table) 06/26/21 22:21 Blood Culture - Preliminary Blood No Growth after 72 hours Assessment and Plan Assessment: Acute Covid-19 pneumonia Acute hypoxic respiratory failure secondary to the above Elevated troponins, possible acute non-STEMI, cardiology following. Hypovolemic hyponatremia Acute renal failure Pulmonary hypertension, severe Chronic atrial fibrillation Hypertension Severe tricuspid regurgitation Plan: Continue on current medication regime ,monitoring and symptomatic anuja tment. Continues on Remdesivir, Covid cocktail. Maintain gentle IV fluid hydration, bronchodilators. The impression and plan of care has been dictated as directed. : I performed a history and examination of this patient, discussed the same with the dictator. I agree with the dictator's note ,documented as a scribe. Any additional findings or plans will be noted.
[2021-06-30 16:57] LABS: Glucose,Whole Blood 244 mg/dL (75-99)
[2021-06-30 20:36] LABS: Glucose,Whole Blood 143 mg/dL (75-99)
--- NOTE | 2021-06-30 23:12 | PN ---
PROGRESS NOTE DATE OF SERVICE: 06/30/2021 REASON FOR FOLLOWUP: COVID-19 pneumonia. INTERVAL HISTORY: The patient is afebrile. The patient is requiring more supplemental oxygen today. The patient denies any worsening shortness of breath. No chest pain. No worsening cough or sputum production. No abdominal pain or diarrhea. PHYSICAL EXAMINATION: Blood pressure 107/72 with a pulse of 90, temperature 97.8. She is 95% on L nasal cannula. General description is an elderly female lying in bed in no distress. Respiratory system: Unlabored breathing, decreased intensity of breath sounds. No wheeze. Heart S1, S2. Regular rate and rhythm. Abdomen soft, no tenderness. LABS: BUN of 38, creatinine is 1.18. Blood culture has been negative. DIAGNOSTIC IMPRESSION AND PLAN: Patient with acute COVID-19 pneumonia. Clinical condition remains critical. Patient to continue with remdesivir to finish 5-day course of therapy along with Eliquis, dexamethasone, zinc and ascorbic acid. Continue with supportive care. MMODL / IJN: [id number] /
[2021-07-01] MEDS: SODIUM CHLORIDE 0.9% 1,000 ML IV SCH ×2 (02:35→17:37)
[2021-07-01 05:42] LABS: Glucose,Whole Blood 129 mg/dL (75-99)
[2021-07-01] MEDS: INSULIN ASPART (NovoLOG) 100 UNIT/ML VIAL SQ SCH ×4 (05:57→20:39)
[2021-07-01] MEDS: PANTOPRAZOLE 40 MG TABLET PO SCH (06:05)
[2021-07-01] MEDS: dexAMETHasone 2 MG TAB PO SCH (07:37)
[2021-07-01] MEDS: METOPROLOL TARTRATE 25 MG TAB PO SCH ×3 (07:37→20:39)
[2021-07-01] MEDS: APIXABAN 5 MG TAB PO SCH ×2 (07:38→20:39)
[2021-07-01] MEDS: ASCORBIC ACID 500 MG TAB PO SCH (07:38)
[2021-07-01] MEDS: CHOLECALCIFEROL 25 MCG (1000 IU) TABLET PO SCH (07:38)
[2021-07-01] MEDS: ZINC SULFATE 220 MG CAP PO SCH (07:38)
[2021-07-01] MEDS: FUROSEMIDE 20 MG TAB PO SCH (07:38)
[2021-07-01] MEDS: REMDESIVIR 100 MG in SODIUM CHLORIDE 0.9% 250 ML IVPB SCH (07:47)
[2021-07-01] MEDS: ALBUTEROL HFA INHALER INHALATION SCH ×4 (08:32→20:51)
[2021-07-01 08:50] LABS: Potassium 4.6 mmol/L (3.5-5.1)
[2021-07-01 08:51] LABS: Calcium 8.5 mg/dL (8.4-10.2)
[2021-07-01 11:54] LABS: Glucose,Whole Blood 163 mg/dL (75-99)
--- NOTE | 2021-07-01 13:25 | P.PN ---
Subjective Progress Note Date: 07/01/21 This 68-year-old female admitted with acute code with pneumonia, hypoxic respiratory failure and multiple other medical issues. Maintained on gentle IV fluid hydration, Covid cocktail, Remdesivir, maintaining O2 sats in the 90s on 6 L nasal cannula. Afebrile, normal WBC. BUN 42, creatinine 1.28. Denies nausea vomiting or diarrhea. Reports minimal cough. Denies chest pain, palpitations or shortness of breath. Reports exertional lightheadedness. Sodium 136. Blood sugars controlled. 06/30/2021 Continues on Covid cocktail, Remdesivir, maintaining O2 sats in the 80s on 6 L, 90s on 8 L. Reports minimal cough. Slept well. Renal function improving, creatinine down to 1.18. Denies chest pain, palpitations or increased shortness of breath. 07/01/2021 productive cough, maintaining O2 sats in the 90s on 8 L nasal cannula. Minimal productive cough, afebrile. Covid cocktail, Remdesivir, Maint ained on Renal function stable. Objective - Vital Signs Vital signs: Vital Signs Temp 97.6 F 07/01/21 12:47 Pulse 89 07/01/21 12:47 Resp 16 07/01/21 12:47 BP 117/78 07/01/21 12:47 Pulse Ox 92 L 07/01/21 12:47 Intake & Output 06/30/21 07/01/21 07/01/21 18:59 06:59 18:59 Intake Total 780 20 10 Balance 780 20 10 Weight 62.8 kg Intake: IV 20 20 10 Invasive Line 2 20 20 10 Oral 760 Other: Voiding Method Bedside Commode # Voids 1 3 - Exam PHYSICAL EXAM: VITAL SIGNS: As above GENERAL: Alert and oriented 3, Sitting up in bed, no acute distress HEENT: Conjunctivae normal. eyes normal. NECK: Supple, No JVD. CARDIOVASCULAR: S1, S2 regular. Systolic murmur. RESPIRATION: Breath sounds diminished in the bases.CTA. ABDOMEN: Soft, nontender . No guarding. no masses palpable.Bowel sounds heard. LEGS: No edema. no swelling. NERVOUS SYSTEM: Cranial N 2-12 grossly normal. Moves all 4 limbs.Diffuse weakness. No focal deficits. Strength and sensation grossly intact. Skin: Warm and dry, no rash - Labs CBC & Chem 7: 06/29/21 09:15 07/01/21 07:27 Labs: Abnormal Lab Results - Last 24 Hours (Table) 06/30/21 06/30/21 07/01/21 Range/Units 16:43 20:31 05:37 Chloride (98-107) mmol/L Carbon Dioxide (22-30) mmol/L BUN (7-17) mg/dL Glucose (74-99) mg/dL POC Glucose (mg/dL) 244 H 143 H 129 H (75-99) mg/dL 07/01/21 07/01/21 Range/Units 07:27 11:48 Chloride 110 H (98-107) mmol/L Carbon Dioxide 20 L (22-30) mmol/L BUN 35 H (7-17) mg/dL Glucose 121 H (74-99) mg/dL POC Glucose (mg/dL) 163 H (75-99) mg/dL Microbiology - Last 24 Hours (Table) 06/26/21 22:21 Blood Culture - Preliminary Blood No Growth after 96 hours Assessment and Plan Assessment: Acute Covid-19 pneumonia Acute hypoxic respiratory failure secondary to the above Elevated troponins, possible acute non-STEMI, cardiology following. Hypovolemic hyponatremia Acute renal failure Pulmonary hypertension, severe Chronic atrial fibrillation Hypertension Severe tricuspid regurgitation Plan: Continue on current medication regime ,monitoring and symptomatic treatment. Maintain supportive care .Continue on IV fluid hydration, Remdesivir, Covid cocktail, bronchodilators. The impression and plan of care has been dictated as directed. : I performed a history and examination of this patient, discussed the same with the dictator. I agree with the dictator's note ,documented as a scribe. Any additional findings or plans will be noted.
[2021-07-01 16:35] LABS: Glucose,Whole Blood 219 mg/dL (75-99)
--- NOTE | 2021-07-01 16:53 | P.PN ---
Subjective Progress Note Date: 07/01/21 Principal diagnosis: Syncope. This is a 76-year-old female with history of multiple medical problems including severe pulmonary hypertension, dyslipidemia, mitral regurgitation, chronic hypoxic respiratory failure, on oxygen at home, patient has been compliant with her oxygen most of the time. Patient had an episode wherein as she walked to go to the bathroom off her oxygen, patient felt dizzy, and she passed out. Patient was found on the floor, and she was brought into the hospital. Workup revealed evidence of pneumonia involving the hilar area and the right lower lobe. CT of the chest showed extensive interstitial and airspace infiltrates in the right lung. There is also minimal interstitial infiltrate noted in the left lower lobe. Patient was tested positive for COVID-19 by PCR. Required 6 L of oxygen to maintain O2 saturation of 90%, patient was admitted with the impression of acute hypoxic respiratory failure secondary to COVID-19 pneumonia, she was seen by infectious disease on consultation, and she was already placed on remdesivir along with the 19th cocktail. CBC showed leukopenia with WBC count of 3.0. There is also evidence of relative lymphopenia. And relative thrombocytopenia. D-dimer was 0.65. Electrolytes are normal renal profile initially showed creatinine of 1.50, however follow-up creatinine today is 1.2. Troponin was also noted to be elevated at 0.567 and 0.69. Liver enzymes were also borderline elevated with AST of 124 ALT of 100. He was borderline low. Bicarb was 16. No evidence of anion gap. Progress note dated 06/29/2021. 76-year-old female seen by my partner in consultation yesterday. The patient has a history of severe pulmonary hypertension, hyperlipidemia, mitral valve disease, chronic hypoxemic respiratory failure, and was admitted to the hospital with a diagnosis of syncope. Skin the chest showed extensive interstitial and ears. She did test positive for coronavirus by PCR. Currently, she is on 6 L nasal cannula. She also getting saline at 50 mL an hour. Currently, white count 5.8, hemoglobin 12, hematocrit 36.2, platelet count 181,000. Sodium 136, potassium 4.5, chlorides 107, CO2 18, anion gap 11, BUN 42, creatinine 1.28. Doppler studies of the lower extremities were negative for DVT. Computed tomography scan was consistent with coronavirus associated pneumonia. Progress note dated 06/30/2021. 76-year-old female again seen in room 384. The patient's currently on 8 L nasal cannula. In addition, the patient's getting saline at 50 mL an hour. The patient has a history of severe pulmonary hypertension, hyperlipidemia, mitral valve disease, chronic hypoxemic respiratory failure, and was admitted to the hospital with a diagnosis of syncope. She did test positive for coronavirus infection. Yesterday she was on 6 L of oxygen. Today she is up to 8 L. She does not appear to be practically short of breath, and she states that she's feeling "fine". Sodium 136, potassium 4.8, chlorides 109, CO2 20, anion gap 7, BUN 38, and creatinine 1.18. Progress note dated 07/01/2021. 76-year-old female seen again in room 384. Patient's oxygen has been turned down to 6 L. It was previously 8 L. Clinically, she's doing about the same or slightly better than she was yesterday. She's actually laying flat in bed. She is speaking on the phone. She has a history of severe pulmonary hypertension, hyperlipidemia, mitral valve disease, and chronic hypoxemic respiratory failure. She was initially admitted with a diagnosis of syncope, but did test positive for coronavirus infection. Sodium was 137, potassium 4.6, chlorides 110, CO2 20, anion gap 7, BUN 35, and creatinine 1.04. Calcium was 8.5. Objective - Vital Signs Vital signs: Vital Signs Temp 97.3 F L 07/01/21 15:10 Pulse 71 07/01/21 15:10 Resp 16 07/01/21 15:10 BP 109/62 07/01/21 15:10 Pulse Ox 97 07/01/21 15:10 Intake & Output 06/30/21 07/01/21 07/01/21 18:59 06:59 18:59 Intake Total 780 20 20 Balance 780 20 20 Weight 62.8 kg Intake: IV 20 20 20 Invasive Line 2 20 20 20 Oral 760 Other: Voiding Method Bedside Commode # Voids 1 3 1 - Exam No acute distress, oriented 3. No respiratory distress. No conversational dyspnea or use of accessory muscles. The patient remains on 6 L nasal cannula. Saturations are 97%. HEENT examination is grossly unremarkable. Neck supple. Full range of motion. No adenopathy thyromegaly or neck vein distention. Cardiovascular examination reveals regular rhythm rate. S1-S2 normal. No S3 or S4. No discernible murmur noted. Heart rate 71 bpm. Lungs reveal bilateral rhonchi and crackles. No wheezes. Breath sounds are equal bilaterally. Abdomen soft bowel sounds are heard. No masses or tenderness. Extremities are intact. No cyanosis clubbing or edema. Skin is without rash or lesion. Neurologic examination is brief but nonfocal. - Labs CBC & Chem 7: 06/29/21 09:15 07/01/21 07:27 Labs: Abnormal Lab Results - Last 24 Hours (Table) 06/30/21 06/30/21 07/01/21 Range/Units 16:43 20:31 05:37 Chloride (98-107) mmol/L Carbon Dioxide (22-30) mmol/L BUN (7-17) mg/dL Glucose (74-99) mg/dL POC Glucose (mg/dL) 244 H 143 H 129 H (75-99) mg/dL 07/01/21 07/01/21 07/01/21 Range/Units 07:27 11:48 16:32 Chloride 110 H (98-107) mmol/L Carbon Dioxide 20 L (22-30) mmol/L BUN 35 H (7-17) mg/dL Glucose 121 H (74-99) mg/dL POC Glucose (mg/dL) 163 H 219 H (75-99) mg/dL Microbiology - Last 24 Hours (Table) 06/26/21 22:21 Blood Culture - Preliminary Blood No Growth after 96 hours Assessment and Plan Assessment: Acute hypoxemic respiratory failure secondary to coronavirus associated pneumonia. History of pulmonary hypertension. History of syncope, etiology unclear, possibly related to underlying hypoxemia. Hypovolemic hyponatremia. History of chronic atrial fibrillation. Benign essential hypertension. History of mitral regurgitation. Plan: Plan dated 06/29/2021. The patient continues on oxygen, at 6 L. The patient will continue on Decadron, as well as vitamin C, vitamin D3, and zinc. The patient's home meds resumed. In addition, the patient continues on Eliquis, albuterol inhaler, and REM. We will continue to follow make recommendations where appropriate. Prognosis is guarded. Plan dated 06/30/2021. The patient's oxygen requirements have been increased to 8 L. The patient appears to be in no distress. The patient continues on Decadron, vitamin C, vitamin D3, and zinc. The patient continues on Eliquis. She is also on albuterol inhaler, and REM. The patient's overall prognosis is guarded. We will continue to follow and make recommendations where appropriate. Clinically, the patient looks stable she states that she's feeling fine. She does not feel any worse today than she did yesterday according to her. Plan dated 07/01/2021. The patient's oxygen requirements have been turned down to 6 L by nasal cannula. She appears to be in no distress. She's actually speaking on the phone without any conversational dyspnea. Patient continues on Decadron, vitamin C, vitamin D3, and zinc. The patient also continues on Eliquis. She has completed her REM. She also has an albuterol inhaler. We will continue to follow make recommendations where appropriate. Prognosis is still guarded. Time with Patient: Less than 30
[2021-07-01 20:04] LABS: Glucose,Whole Blood 177 mg/dL (75-99)
--- NOTE | 2021-07-01 22:25 | PN ---
PROGRESS NOTE DATE OF SERVICE: 07/01/2021 REASON FOR FOLLOWUP: COVID-19 infection. INTERVAL HISTORY: The patient is afebrile. The patient is breathing comfortably. The patient denies having any chest pain or worsening cough or sputum production. No abdominal pain or diarrhea. PHYSICAL EXAMINATION: Blood pressure 110/76, pulse of 73, temperature 97.3. She is 93% on 6 L nasal cannula. General description is an elderly female up in the chair in no distress. Respiratory system: Unlabored breathing, decreased intensity of breath sounds. No wheeze. Heart S1, S2. Regular rate and rhythm. Abdomen soft, no tenderness. LABS: BUN of 34, creatinine 1.04. DIAGNOSTIC IMPRESSION AND PLAN: Patient with acute COVID-19 infection. Patient has completed a five-day course of remdesivir today. Patient to continue with dexamethasone, Eliquis, zinc and ascorbic acid, and monitor clinical course closely. MMODL / IJN: [id number] /
[2021-07-02] MEDS: INSULIN ASPART (NovoLOG) 100 UNIT/ML VIAL SQ SCH ×4 (06:26→20:41)
[2021-07-02] MEDS: PANTOPRAZOLE 40 MG TABLET PO SCH (06:27)
[2021-07-02 06:28] LABS: Glucose,Whole Blood 124 mg/dL (75-99)
[2021-07-02] MEDS: dexAMETHasone 2 MG TAB PO SCH (08:43)
[2021-07-02] MEDS: ASCORBIC ACID 500 MG TAB PO SCH (08:43)
[2021-07-02] MEDS: FUROSEMIDE 20 MG TAB PO SCH (08:43)
[2021-07-02] MEDS: CHOLECALCIFEROL 25 MCG (1000 IU) TABLET PO SCH (08:43)
[2021-07-02] MEDS: METOPROLOL TARTRATE 25 MG TAB PO SCH ×3 (08:43→20:41)
[2021-07-02] MEDS: ZINC SULFATE 220 MG CAP PO SCH (08:43)
[2021-07-02] MEDS: APIXABAN 5 MG TAB PO SCH ×2 (08:43→20:41)
[2021-07-02] MEDS: ALBUTEROL HFA INHALER INHALATION SCH ×4 (10:18→23:08)
[2021-07-02 11:55] LABS: Glucose,Whole Blood 135 mg/dL (75-99)
--- NOTE | 2021-07-02 11:59 | P.PN ---
Subjective This is a pleasant 76 years old female who presents with chromic pneumonia. She has multiple medical problems but she presents with respiratory distress. Chest x-ray showing bilateral pneumonia and her, with disc and back positive. Currently she requires 6 L per minute of supplemental oxygen via nasal cannula. While d-dimer slightly elevated at 0.65. Lactate dehydrogenase at 1454 and C- reactive protein at 4.9. Liver enzymes mildly elevated. Programmed[facility]stone and elevated 1.34. While hemoglobin A1c is normal at 5.8%. Patient finished her REM and currently kept on dexamethasone 6 mg daily, multiple vitamins, Eliquis, Pepcid Objective - Vital Signs Vital signs: Vital Signs Temp 97.4 F L 07/02/21 08:00 Pulse 65 07/02/21 08:00 Resp 18 07/02/21 08:00 BP 116/69 07/02/21 08:00 Pulse Ox 92 L 07/02/21 08:00 Intake & Output 07/01/21 07/02/21 07/02/21 18:59 06:59 18:59 Intake Total 760 Balance 760 Intake: IV 20 Invasive Line 2 20 Oral 740 Other: Voiding Method Bedside Commode # Voids 1 3 1 - Exam GENERAL: The patient is alert and oriented x3, not in any acute distress. Well developed, well nourished. HEENT: Pupils are round and equally reacting to light. EOMI. No scleral icterus. No conjunctival pallor. Normocephalic, atraumatic. No pharyngeal erythema. No thyromegaly. CARDIOVASCULAR: S1 and S2 present. No murmurs, rubs, or gallops. PULMONARY: Chest is clear to auscultation, no wheezing or crackles. ABDOMEN: Soft, nontender, nondistended, normoactive bowel sounds. No palpable organomegaly. MUSCULOSKELETAL: No joint swelling or deformity. EXTREMITIES: No cyanosis, clubbing, or pedal edema. NEUROLOGICAL: Gross neurological examination did not reveal any focal deficits. SKIN: No rashes. no petechiae. - Labs CBC & Chem 7: 06/29/21 09:15 07/01/21 07:27 Labs: Abnormal Lab Results - Last 24 Hours (Table) 07/01/21 07/01/21 07/02/21 Range/Units 16:32 20:03 06:26 POC Glucose (mg/dL) 219 H 177 H 124 H (75-99) mg/dL 07/02/21 Range/Units 11:52 POC Glucose (mg/dL) 135 H (75-99) mg/dL Microbiology - Last 24 Hours (Table) 06/26/21 22:21 Blood Culture - Preliminary Blood No Growth after 120 hours Assessment and Plan Assessment: Bilateral Covid pneumonia Acute hypoxic respiratory failure Increased inflammatory markers Chronic atrial fibrillation on Eliquis Syncope secondary to hypoxia Plan: This is a pleasant 76 years old female who presents with covid pneumonia Continue with dexamethasone Continue with vitamin C, vitamin D and zinc Pulmonary consult Labs and medication were reviewed.. Continue same treatment. Continue with symptomatic treatment. Resume home medication. Monitor lytes and vitals. DVT and GI prophylaxis. Further recommendationsas per clinical course of the patient DVT prophylaxis: Subcutaneous Lovenox GI Prophylaxis: Pepcid Prognosis is guarded
--- NOTE | 2021-07-02 15:34 | P.PN ---
Subjective Progress Note Date: 07/02/21 Principal diagnosis: Syncope. This is a 76-year-old female with history of multiple medical problems including severe pulmonary hypertension, dyslipidemia, mitral regurgitation, chronic hypoxic respiratory failure, on oxygen at home, patient has been compliant with her oxygen most of the time. Patient had an episode wherein as she walked to go to the bathroom off her oxygen, patient felt dizzy, and she passed out. Patient was found on the floor, and she was brought into the hospital. Workup revealed evidence of pneumonia involving the hilar area and the right lower lobe. CT of the chest showed extensive interstitial and airspace infiltrates in the right lung. There is also minimal interstitial infiltrate noted in the left lower lobe. Patient was tested positive for COVID-19 by PCR. Required 6 L of oxygen to maintain O2 saturation of 90%, patient was admitted with the impression of acute hypoxic respiratory failure secondary to COVID-19 pneumonia, she was seen by infectious disease on consultation, and she was already placed on remdesivir along with the 19th cocktail. CBC showed leukopenia with WBC count of 3.0. There is also evidence of relative lymphopenia. And relative thrombocytopenia. D-dimer was 0.65. Electrolytes are normal renal profile initially showed creatinine of 1.50, however follow-up creatinine today is 1.2. Troponin was also noted to be elevated at 0.567 and 0.69. Liver enzymes were also borderline elevated with AST of 124 ALT of 100. He was borderline low. Bicarb was 16. No evidence of anion gap. Progress note dated 06/29/2021. 76-year-old female seen by my partner in consultation yesterday. The patient has a history of severe pulmonary hypertension, hyperlipidemia, mitral valve disease, chronic hypoxemic respiratory failure, and was admitted to the hospital with a diagnosis of syncope. Skin the chest showed extensive interstitial and ears. She did test positive for coronavirus by PCR. Currently, she is on 6 L nasal cannula. She also getting saline at 50 mL an hour. Currently, white count 5.8, hemoglobin 12, hematocrit 36.2, platelet count 181,000. Sodium 136, potassium 4.5, chlorides 107, CO2 18, anion gap 11, BUN 42, creatinine 1.28. Doppler studies of the lower extremities were negative for DVT. Computed tomography scan was consistent with coronavirus associated pneumonia. Progress note dated 06/30/2021. 76-year-old female again seen in room 384. The patient's currently on 8 L nasal cannula. In addition, the patient's getting saline at 50 mL an hour. The patient has a history of severe pulmonary hypertension, hyperlipidemia, mitral valve disease, chronic hypoxemic respiratory failure, and was admitted to the hospital with a diagnosis of syncope. She did test positive for coronavirus infection. Yesterday she was on 6 L of oxygen. Today she is up to 8 L. She does not appear to be practically short of breath, and she states that she's feeling "fine". Sodium 136, potassium 4.8, chlorides 109, CO2 20, anion gap 7, BUN 38, and creatinine 1.18. Progress note dated 07/01/2021. 76-year-old female seen again in room 384. Patient's oxygen has been turned down to 6 L. It was previously 8 L. Clinically, she's doing about the same or slightly better than she was yesterday. She's actually laying flat in bed. She is speaking on the phone. She has a history of severe pulmonary hypertension, hyperlipidemia, mitral valve disease, and chronic hypoxemic respiratory failure. She was initially admitted with a diagnosis of syncope, but did test positive for coronavirus infection. Sodium was 137, potassium 4.6, chlorides 110, CO2 20, anion gap 7, BUN 35, and creatinine 1.04. Calcium was 8.5. Progress note dated 07/02/2021. 76-year-old female again seen in room 384. The patient's currently on 6 L nasal cannula. She's getting saline at 50 mL an hour. She's actually watching the football game on TV. She feels like she is improved today compared to yesterday. She states that she's not having any chest pain or chest discomfort. She is coughing infrequently. The cough is mostly dry. She denies any fever or chills. No new labs today to report. No recent chest x-ray to report. Objective - Vital Signs Vital signs: Vital Signs Temp 97.4 F L 07/02/21 08:00 Pulse 65 07/02/21 12:44 Resp 18 07/02/21 12:44 BP 127/80 07/02/21 12:00 Pulse Ox 93 L 07/02/21 12:00 Intake & Output 07/01/21 07/02/21 07/02/21 18:59 06:59 18:59 Intake Total 760 Balance 760 Intake: IV 20 Invasive Line 2 20 Oral 740 Other: Voiding Method Bedside Commode # Voids 1 3 1 - Exam No acute distress, oriented 3. No respiratory distress. No conversational dyspnea or use of accessory muscles. The patient remains on 6 L nasal cannula. Saturations are 93%. HEENT examination is grossly unremarkable. Neck supple. Full range of motion. No adenopathy thyromegaly or neck vein distention. Cardiovascular examination reveals regular rhythm rate. S1-S2 normal. No S3 or S4. No discernible murmur noted. Heart rate 72 bpm. Lungs reveal bilateral rhonchi and crackles. No wheezes. Breath sounds are equal bilaterally. Breath sounds are minimally improved. Abdomen soft bowel sounds are heard. No masses or tenderness. Extremities are intact. No cyanosis clubbing or edema. Skin is without rash or lesion. Neurologic examination is brief but nonfocal. - Labs CBC & Chem 7: 06/29/21 09:15 07/01/21 07:27 Labs: Abnormal Lab Results - Last 24 Hours (Table) 07/01/21 07/01/21 07/02/21 Range/Units 16:32 20:03 06:26 POC Glucose (mg/dL) 219 H 177 H 124 H (75-99) mg/dL 07/02/21 Range/Units 11:52 POC Glucose (mg/dL) 135 H (75-99) mg/dL Microbiology - Last 24 Hours (Table) 06/26/21 22:21 Blood Culture - Preliminary Blood No Growth after 120 hours Assessment and Plan Assessment: Acute hypoxemic respiratory failure secondary to coronavirus associated pneumonia. History of pulmonary hypertension. History of syncope, etiology unclear, possibly related to underlying hypoxemia. Hypovolemic hyponatremia. History of chronic atrial fibrillation. Benign essential hypertension. History of mitral regurgitation. Plan: Plan dated 06/29/2021. The patient continues on oxygen, at 6 L. The patient will continue on Decadron, as well as vitamin C, vitamin D3, and zinc. The patient's home meds resumed. In addition, the patient continues on Eliquis, albuterol inhaler, and REM. We will continue to follow make recommendations where appropriate. Prognosis is guarded. Plan dated 06/30/2021. The patient's oxygen requirements have been increased to 8 L. The patient appears to be in no distress. The patient continues on Decadron, vitamin C, vitamin D3, and zinc. The patient continues on Eliquis. She is also on albuterol inhaler, and REM. The patient's overall prognosis is guarded. We will continue to follow and make recommendations where appropriate. Clinically, the patient looks stable she states that she's feeling fine. She does not feel any worse today than she did yesterday according to her. Plan dated 07/01/2021. The patient's oxygen requirements have been turned down to 6 L by nasal cannula. She appears to be in no distress. She's actually speaking on the phone without any conversational dyspnea. Patient continues on Decadron, vitamin C, vitamin D3, and zinc. The patient also continues on Eliquis. She has completed her REM. She also has an albuterol inhaler. We will continue to follow make recommendations where appropriate. Prognosis is still guarded. Plan dated 07/02/2021. The patient's currently on 6 L nasal cannula. The patient is receiving saline at 50 mL an hour. Clinically, she looks stable. She remains on Decadron, vitamin C, vitamin D3, and zinc. The patient is ready on Eliquis. We will continue to follow and make recommendations where appropriate. The patient did receive REM, and has completed 5 days of that. She is also on albuterol inhaler. Prognosis is guarded. Time with Patient: Less than 30
[2021-07-02 16:51] LABS: Glucose,Whole Blood 279 mg/dL (75-99)
[2021-07-02 20:32] LABS: Glucose,Whole Blood 226 mg/dL (75-99)
[2021-07-03] MEDS: SODIUM CHLORIDE 0.9% 1,000 ML IV SCH ×2 (00:21→11:40)
[2021-07-03] MEDS: INSULIN ASPART (NovoLOG) 100 UNIT/ML VIAL SQ SCH ×4 (06:52→20:37)
[2021-07-03 06:57] LABS: Glucose,Whole Blood 88 mg/dL (75-99)
[2021-07-03] MEDS: ALBUTEROL HFA INHALER INHALATION SCH ×4 (08:49→20:01)
[2021-07-03] MEDS: PANTOPRAZOLE 40 MG TABLET PO SCH (09:24)
[2021-07-03] MEDS: CHOLECALCIFEROL 25 MCG (1000 IU) TABLET PO SCH (09:24)
[2021-07-03] MEDS: METOPROLOL TARTRATE 25 MG TAB PO SCH ×3 (09:24→20:37)
[2021-07-03] MEDS: ZINC SULFATE 220 MG CAP PO SCH (09:24)
[2021-07-03] MEDS: FUROSEMIDE 20 MG TAB PO SCH (09:24)
[2021-07-03] MEDS: dexAMETHasone 2 MG TAB PO SCH (09:24)
[2021-07-03] MEDS: ASCORBIC ACID 500 MG TAB PO SCH (09:24)
[2021-07-03] MEDS: APIXABAN 5 MG TAB PO SCH ×2 (09:24→20:37)
--- NOTE | 2021-07-03 09:50 | PN ---
PROGRESS NOTE DATE OF SERVICE: 07/02/2021 REASON FOR FOLLOWUP: COVID-19 pneumonia. INTERVAL HISTORY: Patient is afebrile. The patient is breathing slightly comfortably. Denies any chest pain, shortness of breath. Occasional cough. No abdominal pain. No diarrhea. PHYSICAL EXAMINATION: Blood pressure 121/79 with a pulse of 84, temperature 97.8. She is 92% on 6 L nasal cannula. General description is an elderly female lying in bed in no distress. Respiratory system: Unlabored breathing, clear to auscultation anteriorly. Heart S1, S2. Regular rate and rhythm. Abdomen soft, no tenderness. LABS: No new labs have been obtained today. DIAGNOSTIC IMPRESSION AND PLAN: Patient with acute COVID-19 pneumonia in this patient completed a five-day course of Remdesivir to continue with Lovenox, dexamethasone, zinc and ascorbic acid and monitor clinical course closely. Continue supportive care. MMODL / IJN: [id number] /
[2021-07-03 11:24] LABS: Glucose,Whole Blood 118 mg/dL (75-99)
--- NOTE | 2021-07-03 13:06 | P.PN ---
Subjective This is a pleasant 76 years old female who presents with chromic pneumonia. She has multiple medical problems but she presents with respiratory distress. Chest x-ray showing bilateral pneumonia and her, with disc and back positive. Currently she requires 6 L per minute of supplemental oxygen via nasal cannula. While d-dimer slightly elevated at 0.65. Lactate dehydrogenase at 1454 and C- reactive protein at 4.9. Liver enzymes mildly elevated. [facility] and elevated 1.34. While hemoglobin A1c is normal at 5.8%. Patient finished her REM and currently kept on dexamethasone 6 mg daily, multiple vitamins, Eliquis, Pepcid 07/03/2021 Ports improvement in her breathing better however she still on 6 L/m of oxygen via nasal cannula. No more dizziness or syncope episodes. At baseline she uses 3-5 L/m. repeated therefore we are going to do labs tomorrow morning. Extremities: Vitamin C, vitamin D and zinc. She is on dexamethasone. She is on Eliquis for her history of atrial fibrillation. Objective - Vital Signs Vital signs: Vital Signs Temp 97.2 F L 07/03/21 08:30 Pulse 87 07/03/21 08:30 Resp 20 07/03/21 08:30 BP 121/79 07/03/21 08:30 Pulse Ox 94 L 07/03/21 08:30 Intake & Output 07/02/21 07/03/21 07/03/21 18:59 06:59 18:59 Intake Total 200 240 Output Total 800 500 Balance -600 -260 Weight 62.7 kg Intake: Intake, IV Titration 200 Amount Sodium Chloride 0.9% 1, 200 000 ml @ 50 mls/hr IV . Q20H [facility] Rx#:[id number] Oral 240 Output: Urine 800 500 Other: Voiding Method Bedside Commode Bedside Commode # Voids 3 - Exam GENERAL: The patient is alert and oriented x3, not in any acute distress. Well developed, well nourished. HEENT: Pupils are round and equally reacting to light. EOMI. No scleral icterus. No conjunctival pallor. Normocephalic, atraumatic. No pharyngeal erythema. No thyromegaly. CARDIOVASCULAR: S1 and S2 present. No murmurs, rubs, or gallops. PULMONARY: Chest is clear to auscultation, no wheezing or crackles. ABDOMEN: Soft, nontender, nondistended, normoactive bowel sounds. No palpable organomegaly. MUSCULOSKELETAL: No joint swelling or deformity. EXTREMITIES: No cyanosis, clubbing, or pedal edema. NEUROLOGICAL: Gross neurological examination did not reveal any focal deficits. SKIN: No rashes. no petechiae. - Labs CBC & Chem 7: 06/29/21 09:15 07/01/21 07:27 Labs: Abnormal Lab Results - Last 24 Hours (Table) 07/02/21 07/02/21 07/03/21 Range/Units 16:49 20:24 11:22 POC Glucose (mg/dL) 279 H 226 H 118 H (75-99) mg/dL Microbiology - Last 24 Hours (Table) 06/26/21 22:21 Blood Culture - Final Blood No Growth after 144 hours Assessment and Plan Assessment: Bilateral Covid pneumonia Acute hypoxic respiratory failure Increased inflammatory markers Chronic atrial fibrillation on Eliquis Syncope secondary to hypoxia Plan: This is a pleasant 76 years old female who presents with covid pneumonia Continue with dexamethasone Continue with vitamin C, vitamin D and zinc Pulmonary consult Labs and medication were reviewed.. Continue same treatment. Continue with symptomatic treatment. Resume home medication. Monitor lytes and vitals. DVT and GI prophylaxis. Further recommendationsas per clinical course of the patient DVT prophylaxis: Subcutaneous Lovenox GI Prophylaxis: Pepcid Prognosis is guarded
[2021-07-03 16:32] LABS: Glucose,Whole Blood 218 mg/dL (75-99)
--- NOTE | 2021-07-03 17:31 | PN ---
PROGRESS NOTE DATE OF SERVICE: 07/03/2021 REASON FOR FOLLOWUP: COVID-19 pneumonia. INTERVAL HISTORY: Patient is afebrile. The patient is breathing more comfortably. Denies having any chest pain, shortness of breath. Occasional cough. No abdominal pain. No diarrhea. PHYSICAL EXAMINATION: Initial blood pressure 136/88 with a pulse of 91. Temperature is 97.8. She is 96% on 5 L nasal cannula. General description is an elderly female lying in bed in no distress. Respiratory system: Unlabored breathing, decreased intensity of breath sounds. No wheeze. Heart S1, S2. Regular rate and rhythm. Abdomen soft, no tenderness. LABS: No new labs have been obtained today. DIAGNOSTIC IMPRESSION/PLAN: Acute COVID-19 pneumonia in this patient who has shown overall clinical improvement. Patient completed a five-day course of Remdesivir. Currently on Eliquis, dexamethasone, zinc and ascorbic acid to continue along with respiratory support and monitor clinical course closely. MMODL / IJN: [id number] /
--- NOTE | 2021-07-03 19:25 | P.PN ---
Subjective Progress Note Date: 07/03/21 Principal diagnosis: Syncope. This is a 76-year-old female with history of multiple medical problems including severe pulmonary hypertension, dyslipidemia, mitral regurgitation, chronic hypoxic respiratory failure, on oxygen at home, patient has been compliant with her oxygen most of the time. Patient had an episode wherein as she walked to go to the bathroom off her oxygen, patient felt dizzy, and she passed out. Patient was found on the floor, and she was brought into the hospital. Workup revealed evidence of pneumonia involving the hilar area and the right lower lobe. CT of the chest showed extensive interstitial and airspace infiltrates in the right lung. There is also minimal interstitial infiltrate noted in the left lower lobe. Patient was tested positive for COVID-19 by PCR. Required 6 L of oxygen to maintain O2 saturation of 90%, patient was admitted with the impression of acute hypoxic respiratory failure secondary to COVID-19 pneumonia, she was seen by infectious disease on consultation, and she was already placed on remdesivir along with the 19th cocktail. CBC showed leukopenia with WBC count of 3.0. There is also evidence of relative lymphopenia. And relative thrombocytopenia. D-dimer was 0.65. Electrolytes are normal renal profile initially showed creatinine of 1.50, however follow-up creatinine today is 1.2. Troponin was also noted to be elevated at 0.567 and 0.69. Liver enzymes were also borderline elevated with AST of 124 ALT of 100. He was borderline low. Bicarb was 16. No evidence of anion gap. Progress note dated 06/29/2021. 76-year-old female seen by my partner in consultation yesterday. The patient has a history of severe pulmonary hypertension, hyperlipidemia, mitral valve disease, chronic hypoxemic respiratory failure, and was admitted to the hospital with a diagnosis of syncope. Skin the chest showed extensive interstitial and ears. She did test positive for coronavirus by PCR. Currently, she is on 6 L nasal cannula. She also getting saline at 50 mL an hour. Currently, white count 5.8, hemoglobin 12, hematocrit 36.2, platelet count 181,000. Sodium 136, potassium 4.5, chlorides 107, CO2 18, anion gap 11, BUN 42, creatinine 1.28. Doppler studies of the lower extremities were negative for DVT. Computed tomography scan was consistent with coronavirus associated pneumonia. Progress note dated 06/30/2021. 76-year-old female again seen in room 384. The patient's currently on 8 L nasal cannula. In addition, the patient's getting saline at 50 mL an hour. The patient has a history of severe pulmonary hypertension, hyperlipidemia, mitral valve disease, chronic hypoxemic respiratory failure, and was admitted to the hospital with a diagnosis of syncope. She did test positive for coronavirus infection. Yesterday she was on 6 L of oxygen. Today she is up to 8 L. She does not appear to be practically short of breath, and she states that she's feeling "fine". Sodium 136, potassium 4.8, chlorides 109, CO2 20, anion gap 7, BUN 38, and creatinine 1.18. Progress note dated 07/01/2021. 76-year-old female seen again in room 384. Patient's oxygen has been turned down to 6 L. It was previously 8 L. Clinically, she's doing about the same or slightly better than she was yesterday. She's actually laying flat in bed. She is speaking on the phone. She has a history of severe pulmonary hypertension, hyperlipidemia, mitral valve disease, and chronic hypoxemic respiratory failure. She was initially admitted with a diagnosis of syncope, but did test positive for coronavirus infection. Sodium was 137, potassium 4.6, chlorides 110, CO2 20, anion gap 7, BUN 35, and creatinine 1.04. Calcium was 8.5. Progress note dated 07/02/2021. 76-year-old female again seen in room 384. The patient's currently on 6 L nasal cannula. She's getting saline at 50 mL an hour. She's actually watching the football game on TV. She feels like she is improved today compared to yesterday. She states that she's not having any chest pain or chest discomfort. She is coughing infrequently. The cough is mostly dry. She denies any fever or chills. No new labs today to report. No recent chest x-ray to report. Progress note dated 07/03/2021. 76-year-old female, who is again seen in room 384. She's down to 5 L nasal cannula. The patient's doing much better, and her breathing is much improved. She's also getting saline at 50 mL an hour. The patient is hoping to be discharged in the near future. No new laboratory data. Objective - Vital Signs Vital signs: Vital Signs Temp 97.8 F 07/03/21 15:15 Pulse 91 07/03/21 15:15 Resp 20 07/03/21 15:15 BP 136/88 07/03/21 15:15 Pulse Ox 96 07/03/21 16:22 Intake & Output 07/03/21 07/03/21 07/04/21 06:59 18:59 06:59 Intake Total 200 720 Output Total 800 500 Balance -600 220 Weight 62.7 kg Intake: Intake, IV Titration 200 Amount Sodium Chloride 0.9% 1, 200 000 ml @ 50 mls/hr IV . Q20H JOLENE Rx#:[id number] Oral 720 Output: Urine 800 500 Other: Voiding Method Bedside Commode Bedside Commode # Voids 3 # Bowel Movements 1 - Exam No acute distress, oriented 3. No respiratory distress. No conversational dyspnea or use of accessory muscles. The patient remains on 5 L nasal cannula. Saturations are 96 %. HEENT examination is grossly unremarkable. Neck supple. Full range of motion. No adenopathy thyromegaly or neck vein distention. Cardiovascular examination reveals regular rhythm rate. S1-S2 normal. No S3 or S4. No discernible murmur noted. Heart rate 91 bpm. Lungs reveal bilateral rhonchi and crackles. No wheezes. Breath sounds are equal bilaterally. Breath sounds are minimally improved. Abdomen soft bowel sounds are heard. No masses or tenderness. Extremities are intact. No cyanosis clubbing or edema. Skin is without rash or lesion. Neurologic examination is brief but nonfocal. - Labs CBC & Chem 7: 06/29/21 09:15 07/01/21 07:27 Labs: Abnormal Lab Results - Last 24 Hours (Table) 07/02/21 07/03/21 07/03/21 Range/Units 20:24 11:22 16:30 POC Glucose (mg/dL) 226 H 118 H 218 H (75-99) mg/dL Microbiology - Last 24 Hours (Table) 06/26/21 22:21 Blood Culture - Final Blood No Growth after 144 hours Assessment and Plan Assessment: Acute hypoxemic respiratory failure secondary to coronavirus associated pneumonia. History of pulmonary hypertension. History of syncope, etiology unclear, possibly related to underlying hypoxemia. Hypovolemic hyponatremia. History of chronic atrial fibrillation. Benign essential hypertension. History of mitral regurgitation. Plan: Plan dated 06/29/2021. The patient continues on oxygen, at 6 L. The patient will continue on Decadron, as well as vitamin C, vitamin D3, and zinc. The patient's home meds resumed. In addition, the patient continues on Eliquis, albuterol inhaler, and REM. We will continue to follow make recommendations where appropriate. Prognosis is guarded. Plan dated 06/30/2021. The patient's oxygen requirements have been increased to 8 L. The patient appears to be in no distress. The patient continues on Decadron, vitamin C, vitamin D3, and zinc. The patient continues on Eliquis. She is also on albuterol inhaler, and REM. The patient's overall prognosis is guarded. We will continue to follow and make recommendations where appropriate. Clinically, the patient looks stable she states that she's feeling fine. She does not feel any worse today than she did yesterday according to her. Plan dated 07/01/2021. The patient's oxygen requirements have been turned down to 6 L by nasal cannula. She appears to be in no distress. She's actually speaking on the phone without any conversational dyspnea. Patient continues on Decadron, vitamin C, vitamin D3, and zinc. The patient also continues on Eliquis. She has completed her REM. She also has an albuterol inhaler. We will continue to follow make recommendations where appropriate. Prognosis is still guarded. Plan dated 07/02/2021. The patient's currently on 6 L nasal cannula. The patient is receiving saline at 50 mL an hour. Clinically, she looks stable. She remains on Decadron, vi tamin C, vitamin D3, and zinc. The patient is ready on Eliquis. We will continue to follow and make recommendations where appropriate. The patient did receive REM, and has completed 5 days of that. She is also on albuterol inhaler. Prognosis is guarded. Plan dated 07/03/2021. Currently, the patient's on 5 L nasal cannula. She feels like her breathing is improved. She is also receiving saline at 50 mL an hour. She is hoping to be discharged in the near future. She remains on Decadron, vitamin C, vitamin D3, and zinc. The patient is ready on Eliquis. She did receive REM. Overall pr ognosis remains guarded. We will continue to follow and make recommendations where appropriate. Time with Patient: Less than 30
[2021-07-03 20:41] LABS: Glucose,Whole Blood 239 mg/dL (75-99)
[2021-07-04] MEDS: INSULIN ASPART (NovoLOG) 100 UNIT/ML VIAL SQ SCH ×4 (06:08→20:37)
[2021-07-04] MEDS: PANTOPRAZOLE 40 MG TABLET PO SCH (06:08)
[2021-07-04 06:30] LABS: Glucose,Whole Blood 110 mg/dL (75-99)
[2021-07-04] MEDS: ALBUTEROL HFA INHALER INHALATION SCH ×5 (08:25→20:05)
[2021-07-04 08:57] LABS: Basophils % (A) 0 %; Eosinophils # (A) 0.1 k/uL (0-0.7); Eosinophils % (A) 1 %; HCT 38.3 % (34.0-46.0); HGB 12.5 gm/dL (11.4-16.0); Lymphocytes # (A) 0.7 k/uL (1.0-4.8); Lymphocytes % (A) 6 %; MCH 30.6 pg (25.0-35.0); MCHC 32.7 g/dL (31.0-37.0); MCV 93.5 fL (80.0-100.0); Mean Platelet Volume 9.7; Monocytes # (A) 0.7 k/uL (0-1.0); Monocytes % (A) 6 %; Neutrophils # (A) 10.7 k/uL (1.3-7.7); Neutrophils % (A) 87 %; Platelet Count 258 k/uL (150-450); RBC 4.09 m/uL (3.80-5.40); RDW 15.5 % (11.5-15.5); WBC 12.3 k/uL (3.8-10.6)
[2021-07-04] MEDS: dexAMETHasone 2 MG TAB PO SCH (09:20)
[2021-07-04] MEDS: FUROSEMIDE 20 MG TAB PO SCH (09:21)
[2021-07-04] MEDS: CHOLECALCIFEROL 25 MCG (1000 IU) TABLET PO SCH (09:21)
[2021-07-04] MEDS: ASCORBIC ACID 500 MG TAB PO SCH (09:21)
[2021-07-04] MEDS: METOPROLOL TARTRATE 25 MG TAB PO SCH ×3 (09:21→20:37)
[2021-07-04] MEDS: ZINC SULFATE 220 MG CAP PO SCH (09:21)
[2021-07-04] MEDS: APIXABAN 5 MG TAB PO SCH ×2 (09:21→20:37)
[2021-07-04 09:24] LABS: C Reactive Protein 1.2 mg/dL (<1.0); Calcium 8.8 mg/dL (8.4-10.2); Potassium 4.1 mmol/L (3.5-5.1)
[2021-07-04 12:07] LABS: Glucose,Whole Blood 156 mg/dL (75-99)
[2021-07-04] MEDS: SODIUM CHLORIDE 0.9% 1,000 ML IV SCH (16:30)
--- NOTE | 2021-07-04 16:47 | P.PN ---
Subjective Progress Note Date: 07/04/21 Principal diagnosis: Syncope. This is a 76-year-old female with history of multiple medical problems including severe pulmonary hypertension, dyslipidemia, mitral regurgitation, chronic hypoxic respiratory failure, on oxygen at home, patient has been compliant with her oxygen most of the time. Patient had an episode wherein as she walked to go to the bathroom off her oxygen, patient felt dizzy, and she passed out. Patient was found on the floor, and she was brought into the hospital. Workup revealed evidence of pneumonia involving the hilar area and the right lower lobe. CT of the chest showed extensive interstitial and airspace infiltrates in the right lung. There is also minimal interstitial infiltrate noted in the left lower lobe. Patient was tested positive for COVID-19 by PCR. Required 6 L of oxygen to maintain O2 saturation of 90%, patient was admitted with the impression of acute hypoxic respiratory failure secondary to COVID-19 pneumonia, she was seen by infectious disease on consultation, and she was already placed on remdesivir along with the 19th cocktail. CBC showed leukopenia with WBC count of 3.0. There is also evidence of relative lymphopenia. And relative thrombocytopenia. D-dimer was 0.65. Electrolytes are normal renal profile initially showed creatinine of 1.50, however follow-up creatinine today is 1.2. Troponin was also noted to be elevated at 0.567 and 0.69. Liver enzymes were also borderline elevated with AST of 124 ALT of 100. He was borderline low. Bicarb was 16. No evidence of anion gap. Progress note dated 06/29/2021. 76-year-old female seen by my partner in consultation yesterday. The patient has a history of severe pulmonary hypertension, hyperlipidemia, mitral valve disease, chronic hypoxemic respiratory failure, and was admitted to the hospital with a diagnosis of syncope. Skin the chest showed extensive interstitial and ears. She did test positive for coronavirus by PCR. Currently, she is on 6 L nasal cannula. She also getting saline at 50 mL an hour. Currently, white count 5.8, hemoglobin 12, hematocrit 36.2, platelet count 181,000. Sodium 136, potassium 4.5, chlorides 107, CO2 18, anion gap 11, BUN 42, creatinine 1.28. Doppler studies of the lower extremities were negative for DVT. Computed tomography scan was consistent with coronavirus associated pneumonia. Progress note dated 06/30/2021. 76-year-old female again seen in room 384. The patient's currently on 8 L nasal cannula. In addition, the patient's getting saline at 50 mL an hour. The patient has a history of severe pulmonary hypertension, hyperlipidemia, mitral valve disease, chronic hypoxemic respiratory failure, and was admitted to the hospital with a diagnosis of syncope. She did test positive for coronavirus infection. Yesterday she was on 6 L of oxygen. Today she is up to 8 L. She does not appear to be practically short of breath, and she states that she's feeling "fine". Sodium 136, potassium 4.8, chlorides 109, CO2 20, anion gap 7, BUN 38, and creatinine 1.18. Progress note dated 07/01/2021. 76-year-old female seen again in room 384. Patient's oxygen has been turned down to 6 L. It was previously 8 L. Clinically, she's doing about the same or slightly better than she was yesterday. She's actually laying flat in bed. She is speaking on the phone. She has a history of severe pulmonary hypertension, hyperlipidemia, mitral valve disease, and chronic hypoxemic respiratory failure. She was initially admitted with a diagnosis of syncope, but did test positive for coronavirus infection. Sodium was 137, potassium 4.6, chlorides 110, CO2 20, anion gap 7, BUN 35, and creatinine 1.04. Calcium was 8.5. Progress note dated 07/02/2021. 76-year-old female again seen in room 384. The patient's currently on 6 L nasal cannula. She's getting saline at 50 mL an hour. She's actually watching the football game on TV. She feels like she is improved today compared to yesterday. She states that she's not having any chest pain or chest discomfort. She is coughing infrequently. The cough is mostly dry. She denies any fever or chills. No new labs today to report. No recent chest x-ray to report. Progress note dated 07/03/2021. 76-year-old female, who is again seen in room 384. She's down to 5 L nasal cannula. The patient's doing much better, and her breathing is much improved. She's also getting saline at 50 mL an hour. The patient is hoping to be discharged in the near future. No new laboratory data. Progress note dated 07/04/2021. 76-year-old female, again seen in room 384. The patient's currently on 5 L nasal cannula. Her saturations are 97%. She's getting saline at 50 mL an hour. Temperature is 97.2, heart rate 73, respiratory rate 18, and blood pressure 100/63. She appears relatively stable, is hoping to be discharged in the near future. Current lab data includes a white count 12.3, with a normal hemoglobin, hematocrit, and platelet count. Sodium 135, potassium 4.1, chlorides 104, CO2 23, anion gap 8, BUN 32, and creatinine 0.91. LDH is 1075. C-reactive protein is 1.2. Objective - Vital Signs Vital signs: Vital Signs Temp 97.2 F L 07/04/21 08:00 Pulse 78 07/04/21 14:00 Resp 18 07/04/21 14:00 BP 100/63 07/04/21 12:00 Pulse Ox 97 07/04/21 12:00 Intake & Output 07/03/21 07/04/21 07/04/21 18:59 06:59 18:59 Intake Total 720 358 Output Total 500 Balance 220 358 Weight 62.4 kg Intake: Oral 720 358 Output: Urine 500 Other: Voiding Method Bedside Commode Bedside Commode # Voids 3 2 2 # Bowel Movements 1 - Exam No acute distress, oriented 3. No respiratory distress. No conversational dyspnea or use of accessory muscles. The patient remains on 5 L nasal cannula. Saturations are 97 %. HEENT examination is grossly unremarkable. Neck supple. Full range of motion. No adenopathy thyromegaly or neck vein distention. Cardiovascular examination reveals regular rhythm rate. S1-S2 normal. No S3 or S4. No discernible murmur noted. Heart rate 73 bpm. Lungs reveal bilateral rhonchi and crackles. No wheezes. Breath sounds are equal bilaterally. Breath sounds are minimally improved. Abdomen soft bowel sounds are heard. No masses or tenderness. Extremities are intact. No cyanosis clubbing or edema. Skin is without rash or lesion. Neurologic examination is brief but nonfocal. - Labs CBC & Chem 7: 07/04/21 08:11 07/04/21 08:11 Labs: Abnormal Lab Results - Last 24 Hours (Table) 07/03/21 07/04/21 07/04/21 Range/Units 20:16 06:08 08:11 WBC 12.3 H (3.8-10.6) k/uL Neutrophils # 10.7 H (1.3-7.7) k/uL Lymphocytes # 0.7 L (1.0-4.8) k/uL Sodium (137-145) mmol/L BUN (7-17) mg/dL POC Glucose (mg/dL) 239 H 110 H (75-99) mg/dL Lactate Dehydrogenase (313-618) U/L C-Reactive Protein (<1.0) mg/dL 07/04/21 07/04/21 Range/Units 08:11 12:04 WBC (3.8-10.6) k/uL Neutrophils # (1.3-7.7) k/uL Lymphocytes # (1.0-4.8) k/uL Sodium 135 L (137-145) mmol/L BUN 32 H (7-17) mg/dL POC Glucose (mg/dL) 156 H (75-99) mg/dL Lactate Dehydrogenase 1075 H (313-618) U/L C-Reactive Protein 1.2 H (<1.0) mg/dL Assessment and Plan Assessment: Acute hypoxemic respiratory failure secondary to coronavirus associated pneumonia. History of pulmonary hypertension. History of syncope, etiology unclear, possibly related to underlying hypoxemia. Hypovolemic hyponatremia. History of chronic atrial fibrillation. Benign essential hypertension. History of mitral regurgitation. Plan: Plan dated 06/29/2021. The patient continues on oxygen, at 6 L. The patient will continue on Decadron, as well as vitamin C, vitamin D3, and zinc. The patient's home meds resumed. In addition, the patient continues on Eliquis, albuterol inhaler, and REM. We will continue to follow make recommendations where appropriate. Prognosis is guarded. Plan dated 06/30/2021. The patient's oxygen requirements have been increased to 8 L. The patient appears to be in no distress. The patient continues on Decadron, vitamin C, vitamin D3, and zinc. The patient continues on Eliquis. She is also on albuterol inhaler, and REM. The patient's overall prognosis is guarded. We will continue to follow and make recommendations where appropriate. Clinically, the patient looks stable she states that she's feeling fine. She does not feel any worse today than she did yesterday according to her. Plan dated 07/01/2021. The patient's oxygen requirements have been turned down to 6 L by nasal cannula. She appears to be in no distress. She's actually speaking on the phone without any conversational dyspnea. Patient continues on Decadron, vitamin C, vitamin D3, and zinc. The patient also continues on Eliquis. She has completed her REM. She also has an albuterol inhaler. We will continue to follow make recommendations where appropriate. Prognosis is still guarded. Plan dated 07/02/2021. The patient's currently on 6 L nasal cannula. The patient is receiving saline at 50 mL an hour. Clinically, she looks stable. She remains on Decadron, vitamin C, vitamin D3, and zinc. The patient is ready on Eliquis. We will continue to follow and make recommendations where appropriate. The patient did receive REM, and has completed 5 days of that. She is also on albuterol inhaler. Prognosis is guarded. Plan dated 07/03/2021. Currently, the patient's on 5 L nasal cannula. She feels like her breathing is improved. She is also receiving saline at 50 mL an hour. She is hoping to be discharged in the near future. She remains on Decadron, vitamin C, vitamin D3, and zinc. The patient is ready on Eliquis. She did receive REM. Overall prognosis remains guarded. We will continue to follow and make recommendations where appropriate. Plan dated 07/04/2021. Currently, the patient is on 5 L nasal cannula. Saturations are 95%. She states that her breathing is much improved. She remains on saline at 50 mL an hour. Other medications that are important to her condition include albuterol inhaler, Eliquis, vitamin C, vitamin D3, zinc, and Decadron. We will continue to follow make recommendations where appropriate. Prognosis is guarded. The patient is hoping to be discharged in the near future. Time with Patient: Less than 30
--- NOTE | 2021-07-04 16:49 | P.PN ---
Subjective This is a pleasant 76 years old female who presents with chromic pneumonia. She has multiple medical problems but she presents with respiratory distress. Chest x-ray showing bilateral pneumonia and her, with disc and back positive. Currently she requires 6 L per minute of supplemental oxygen via nasal cannula. While d-dimer slightly elevated at 0.65. Lactate dehydrogenase at 1454 and C- reactive protein at 4.9. Liver enzymes mildly elevated. [facility] and elevated 1.34. While hemoglobin A1c is normal at 5.8%. Patient finished her REM and currently kept on dexamethasone 6 mg daily, multiple vitamins, Eliquis, Pepcid 07/03/2021 Ports improvement in her breathing better however she still on 6 L/m of oxygen via nasal cannula. No more dizziness or syncope episodes. At baseline she uses 3-5 L/m. repeated therefore we are going to do labs tomorrow morning. Extremities: Vitamin C, vitamin D and zinc. She is on dexamethasone. She is on Eliquis for her history of atrial fibrillation. 07/04/2021 Patient breathing is improving gradually and slowly. Occasional coughing. Her vitals looks stable. Her oxygen saturation is 90s with oxygen requirements dropped 6 down to 5 L/m She is breathing at a rate of 18-20, only mildly tachypneic while at rest. mild leukocytosis while on steroids, ldh and c-reactive protein slightly trended down 1075 and 1.2 respectively. she is status post Remdesivir, and now she is on dexamethasone, vitamin C, D and zinc, she is on Eliquis and Pepcid as well. Objective - Vital Signs Vital signs: Vital Signs Temp 97.2 F L 07/04/21 08:00 Pulse 94 07/04/21 08:00 Resp 20 07/04/21 08:00 BP 110/73 07/04/21 08:00 Pulse Ox 91 L 07/04/21 08:00 Intake & Output 07/03/21 07/04/21 07/04/21 18:59 06:59 18:59 Intake Total 720 240 Output Total 500 Balance 220 240 Weight 62.4 kg Intake: Oral 720 240 Output: Urine 500 Other: Voiding Method Bedside Commode Bedside Commode # Voids 3 2 2 # Bowel Movements 1 - Exam GENERAL: The patient is alert and oriented x3, not in any acute distress. Well developed, well nourished. HEENT: Pupils are round and equally reacting to light. EOMI. No scleral icterus. No conjunctival pallor. Normocephalic, atraumatic. No pharyngeal erythema. No thyromegaly. CARDIOVASCULAR: S1 and S2 present. No murmurs, rubs, or gallops. PULMONARY: Chest is clear to auscultation, no wheezing or crackles. ABDOMEN: Soft, nontender, nondistended, normoactive bowel sounds. No palpable organomegaly. MUSCULOSKELETAL: No joint swelling or deformity. EXTREMITIES: No cyanosis, clubbing, or pedal edema. NEUROLOGICAL: Gross neurological examination did not reveal any focal deficits. SKIN: No rashes. no petechiae. - Labs CBC & Chem 7: 07/04/21 08:11 07/04/21 08:11 Labs: Abnormal Lab Results - Last 24 Hours (Table) 07/03/21 07/03/21 07/04/21 Range/Units 16:30 20:16 06:08 WBC (3.8-10.6) k/uL Neutrophils # (1.3-7.7) k/uL Lymphocytes # (1.0-4.8) k/uL Sodium (137-145) mmol/L BUN (7-17) mg/dL POC Glucose (mg/dL) 218 H 239 H 110 H (75-99) mg/dL Lactate Dehydrogenase (313-618) U/L C-Reactive Protein (<1.0) mg/dL 07/04/21 07/04/21 07/04/21 Range/Units 08:11 08:11 12:04 WBC 12.3 H (3.8-10.6) k/uL Neutrophils # 10.7 H (1.3-7.7) k/uL Lymphocytes # 0.7 L (1.0-4.8) k/uL Sodium 135 L (137-145) mmol/L BUN 32 H (7-17) mg/dL POC Glucose (mg/dL) 156 H (75-99) mg/dL Lactate Dehydrogenase 1075 H (313-618) U/L C-Reactive Protein 1.2 H (<1.0) mg/dL Assessment and Plan Assessment: Bilateral Covid pneumonia Acute hypoxic respiratory failure Increased inflammatory markers Chronic atrial fibrillation on Eliquis Syncope secondary to hypoxia Plan: This is a pleasant 76 years old female who presents with covid pneumonia Continue with dexamethasone Continue with vitamin C, vitamin D and zinc Pulmonary consult Labs and medication were reviewed.. Continue same treatment. Continue with symptomatic treatment. Resume home medication. Monitor lytes and vitals. DVT and GI prophylaxis. Further recommendationsas per clinical course of the patient DVT prophylaxis: Subcutaneous Lovenox GI Prophylaxis: Pepcid Prognosis is guarded
[2021-07-04 17:05] LABS: Glucose,Whole Blood 244 mg/dL (75-99)
--- NOTE | 2021-07-04 18:09 | PN ---
PROGRESS NOTE DATE OF SERVICE: 07/04/2021 REASON FOR FOLLOWUP: COVID-19 pneumonia. INTERVAL HISTORY: Patient is afebrile. The patient is currently breathing comfortably. The patient denies having any chest pain. No shortness of breath. No worsening cough. No abdominal pain or diarrhea. PHYSICAL EXAMINATION: Blood pressure 100/60 with a pulse of 73, temperature 97.2. He is 97% on 5 L nasal cannula. General description is an elderly female up in the bed in no distress. Respiratory system: Unlabored breathing, decreased intensity of breath sounds. No wheeze. Heart S1, S2. Regular rate and rhythm. Abdomen soft, no tenderness. LABS: Hemoglobin is 12.5, white count 12.3, creatinine 0.91. IMPRESSION/PLAN: Patient with COVID-19 pneumonia in this patient who has completed a five-day course of Remdesivir and the patient is currently covered with Eliquis, dexamethasone, zinc and ascorbic acid to continue along with respiratory support and monitor clinical course closely. MMODL / IJN: [id number] /
[2021-07-04 20:37] LABS: Glucose,Whole Blood 212 mg/dL (75-99)
[2021-07-05 05:33] LABS: Glucose,Whole Blood 98 mg/dL (75-99)
[2021-07-05] MEDS: INSULIN ASPART (NovoLOG) 100 UNIT/ML VIAL SQ SCH ×4 (06:15→20:30)
[2021-07-05] MEDS: PANTOPRAZOLE 40 MG TABLET PO SCH (06:17)
[2021-07-05] MEDS: SODIUM CHLORIDE 0.9% 1,000 ML IV SCH ×2 (06:18→20:31)
[2021-07-05] MEDS: ALBUTEROL HFA INHALER INHALATION SCH ×4 (10:00→19:35)
[2021-07-05] MEDS: FUROSEMIDE 20 MG TAB PO SCH (10:13)
[2021-07-05] MEDS: dexAMETHasone 2 MG TAB PO SCH (10:14)
[2021-07-05] MEDS: CHOLECALCIFEROL 25 MCG (1000 IU) TABLET PO SCH (10:14)
[2021-07-05] MEDS: APIXABAN 5 MG TAB PO SCH ×2 (10:14→20:30)
[2021-07-05] MEDS: ASCORBIC ACID 500 MG TAB PO SCH (10:14)
[2021-07-05] MEDS: ZINC SULFATE 220 MG CAP PO SCH (10:14)
[2021-07-05] MEDS: METOPROLOL TARTRATE 25 MG TAB PO SCH ×3 (10:14→20:30)
--- NOTE | 2021-07-05 11:16 | XR ---
EXAMINATION TYPE: XR chest 1V portable DATE OF EXAM: 07/05/2021 COMPARISON: 06/26/2021 HISTORY: 76 years Female. STUDY INDICATION GIVEN: worsening sob . TECHNIQUE: AP chest radiograph IMPRESSION: Scattered bilateral right greater than left interstitial and airspace opacities concerning for multif ocal pneumonia superimposed on a background of chronic lung disease including COPD/emphysema. No pneumothorax or large effusion. Stable moderate cardiomegaly. Generalized osteopenia without acute osseous abnormality. Atherosclerotic calcification seen in the intrathoracic aorta.
[2021-07-05 12:02] LABS: Glucose,Whole Blood 116 mg/dL (75-99)
[2021-07-05 16:54] LABS: Glucose,Whole Blood 264 mg/dL (75-99)
--- NOTE | 2021-07-05 17:19 | P.PN ---
Subjective Progress Note Date: 07/05/21 Principal diagnosis: Syncope. This is a 76-year-old female with history of multiple medical problems including severe pulmonary hypertension, dyslipidemia, mitral regurgitation, chronic hypoxic respiratory failure, on oxygen at home, patient has been compliant with her oxygen most of the time. Patient had an episode wherein as she walked to go to the bathroom off her oxygen, patient felt dizzy, and she passed out. Patient was found on the floor, and she was brought into the hospital. Workup revealed evidence of pneumonia involving the hilar area and the right lower lobe. CT of the chest showed extensive interstitial and airspace infiltrates in the right lung. There is also minimal interstitial infiltrate noted in the left lower lobe. Patient was tested positive for COVID-19 by PCR. Required 6 L of oxygen to maintain O2 saturation of 90%, patient was admitted with the impression of acute hypoxic respiratory failure secondary to COVID-19 pneumonia, she was seen by infectious disease on consultation, and she was already placed on remdesivir along with the 19th cocktail. CBC showed leukopenia with WBC count of 3.0. There is also evidence of relative lymphopenia. And relative thrombocytopenia. D-dimer was 0.65. Electrolytes are normal renal profile initially showed creatinine of 1.50, however follow-up creatinine today is 1.2. Troponin was also noted to be elevated at 0.567 and 0.69. Liver enzymes were also borderline elevated with AST of 124 ALT of 100. He was borderline low. Bicarb was 16. No evidence of anion gap. Progress note dated 06/29/2021. 76-year-old female seen by my partner in consultation yesterday. The patient has a history of severe pulmonary hypertension, hyperlipidemia, mitral valve disease, chronic hypoxemic respiratory failure, and was admitted to the hospital with a diagnosis of syncope. Skin the chest showed extensive interstitial and ears. She did test positive for coronavirus by PCR. Currently, she is on 6 L nasal cannula. She also getting saline at 50 mL an hour. Currently, white count 5.8, hemoglobin 12, hematocrit 36.2, platelet count 181,000. Sodium 136, potassium 4.5, chlorides 107, CO2 18, anion gap 11, BUN 42, creatinine 1.28. Doppler studies of the lower extremities were negative for DVT. Computed tomography scan was consistent with coronavirus associated pneumonia. Progress note dated 06/30/2021. 76-year-old female again seen in room 384. The patient's currently on 8 L nasal cannula. In addition, the patient's getting saline at 50 mL an hour. The patient has a history of severe pulmonary hypertension, hyperlipidemia, mitral valve disease, chronic hypoxemic respiratory failure, and was admitted to the hospital with a diagnosis of syncope. She did test positive for coronavirus infection. Yesterday she was on 6 L of oxygen. Today she is up to 8 L. She does not appear to be practically short of breath, and she states that she's feeling "fine". Sodium 136, potassium 4.8, chlorides 109, CO2 20, anion gap 7, BUN 38, and creatinine 1.18. Progress note dated 07/01/2021. 76-year-old female seen again in room 384. Patient's oxygen has been turned down to 6 L. It was previously 8 L. Clinically, she's doing about the same or slightly better than she was yesterday. She's actually laying flat in bed. She is speaking on the phone. She has a history of severe pulmonary hypertension, hyperlipidemia, mitral valve disease, and chronic hypoxemic respiratory failure. She was initially admitted with a diagnosis of syncope, but did test positive for coronavirus infection. Sodium was 137, potassium 4.6, chlorides 110, CO2 20, anion gap 7, BUN 35, and creatinine 1.04. Calcium was 8.5. Progress note dated 07/02/2021. 76-year-old female again seen in room 384. The patient's currently on 6 L nasal cannula. She's getting saline at 50 mL an hour. She's actually watching the football game on TV. She feels like she is improved today compared to yesterday. She states that she's not having any chest pain or chest discomfort. She is coughing infrequently. The cough is mostly dry. She denies any fever or chills. No new labs today to report. No recent chest x-ray to report. Progress note dated 07/03/2021. 76-year-old female, who is again seen in room 384. She's down to 5 L nasal cannula. The patient's doing much better, and her breathing is much improved. She's also getting saline at 50 mL an hour. The patient is hoping to be discharged in the near future. No new laboratory data. Progress note dated 07/04/2021. 76-year-old female, again seen in room 384. The patient's currently on 5 L nasal cannula. Her saturations are 97%. She's getting saline at 50 mL an hour. Temperature is 97.2, heart rate 73, respiratory rate 18, and blood pressure 100/63. She appears relatively stable, is hoping to be discharged in the near future. Current lab data includes a white count 12.3, with a normal hemoglobin, hematocrit, and platelet count. Sodium 135, potassium 4.1, chlorides 104, CO2 23, anion gap 8, BUN 32, and creatinine 0.91. LDH is 1075. C-reactive protein is 1.2. Progress note dated 07/05/2021. 76-year-old female again seen in room 384. The patient's currently on 6 L nasal cannula. She had been weaned down to 5 L. This morning, she got out of bed to go to the bathroom, and apparently her saturations dropped into the 70s. She remains on saline at 50 mL an hour. Clinically she looks well and she denies being short of breath. She even denies being short of breath when she exerts herself. There are no new lab data today. Chest x-ray from today shows scattered bilateral right greater than left airspace opacities, consistent with Covid pneumonia. The chest x-ray in my opinion is largely unchanged. Objective - Vital Signs Vital signs: Vital Signs Temp 97.4 F L 07/05/21 08:00 Pulse 78 07/05/21 14:00 Resp 18 07/05/21 14:00 BP 122/71 07/05/21 12:00 Pulse Ox 92 L 07/05/21 12:00 Intake & Output 07/04/21 07/05/21 07/05/21 18:59 06:59 18:59 Intake Total 598 200 480 Output Total 800 Balance 598 -600 480 Intake: Intake, IV Titration 200 Amount Sodium Chloride 0.9% 1, 200 000 ml @ 50 mls/hr IV . Q20H [facility] Rx#:[id number] Oral 598 480 Output: Urine 800 Other: Voiding Method Bedside Commode # Voids 2 3 - Exam No acute distress, oriented 3. No respiratory distress. No conversational dyspnea or use of accessory muscles. The patient remains on 6 L nasal cannula. Saturations are 92 %. HEENT examination is grossly unremarkable. Neck supple. Full range of motion. No adenopathy thyromegaly or neck vein distention. Cardiovascular examination reveals regular rhythm rate. S1-S2 normal. No S3 or S4. No discernible murmur noted. Heart rate 79 bpm. Lungs reveal bilateral rhonchi and crackles. No wheezes. Breath sounds are equal bilaterally. Breath sounds are minimally improved. Abdomen soft bowel sounds are heard. No masses or tenderness. Extremities are intact. No cyanosis clubbing or edema. Skin is without rash or lesion. Neurologic examination is brief but nonfocal. - Labs CBC & Chem 7: 07/04/21 08:11 07/04/21 08:11 Labs: Abnormal Lab Results - Last 24 Hours (Table) 07/04/21 07/05/21 07/05/21 Range/Units 20:36 12:00 16:51 POC Glucose (mg/dL) 212 H 116 H 264 H (75-99) mg/dL Assessment and Plan Assessment: Acute hypoxemic respiratory failure secondary to coronavirus associated pneumonia. History of pulmonary hypertension. History of syncope, etiology unclear, possibly related to underlying hypoxemia. Hypovolemic hyponatremia. History of chronic atrial fibrillation. Benign essential hypertension. History of mitral regurgitation. Plan: Plan dated 06/29/2021. The patient continues on oxygen, at 6 L. The patient will continue on Decadron, as well as vitamin C, vitamin D3, and zinc. The patient's home meds resumed. In addition, the patient continues on Eliquis, albuterol inhaler, and REM. We will continue to follow make recommendations where appropriate. Prognosis is guarded. Plan dated 06/30/2021. The patient's oxygen requirements have been increased to 8 L. The patient appears to be in no distress. The patient continues on Decadron, vitamin C, vitamin D3, and zinc. The patient continues on Eliquis. She is also on albuter ol inhaler, and REM. The patient's overall prognosis is guarded. We will continue to follow and make recommendations where appropriate. Clinically, the patient looks stable she states that she's feeling fine. She does not feel any worse today than she did yesterday according to her. Plan dated 07/01/2021. The patient's oxygen requirements have been turned down to 6 L by nasal cannula. She appears to be in no distress. She's actually speaking on the phone without any conversational dyspnea. Patient continues on Decadron, vitamin C, vitamin D3, and zinc. The patient also continues on Eliquis. She has completed her REM. She also has an albuterol inhaler. We will continue to follow make recommendations where appropriate. Prognosis is still guarded. Plan dated 07/02/2021. The patient's currently on 6 L nasal cannula. The patient is receiving saline at 50 mL an hour. Clinically, she looks stable. She remains on Decadron, vitamin C, vitamin D3, and zinc. The patient is ready on Eliquis. We will continue to follow and make recommendations where appropriate. The patient did receive REM, and has completed 5 days of that. She is also on albuterol inhaler. Prognosis is guarded. Plan dated 07/03/2021. Currently, the patient's on 5 L nasal cannula. She feels like her breathing is improved. She is also receiving saline at 50 mL an hour. She is hoping to be discharged in the near future. She remains on Decadron, vitamin C, vitamin D3, and zinc. The patient is ready on Eliquis. She did receive REM. Overall prognosis remains guarded. We will continue to follow and make recommendations where appropriate. Plan dated 07/04/2021. Currently, the patient is on 5 L nasal cannula. Saturations are 95%. She states that her breathing is much improved. She remains on saline at 50 mL an hour. Other medications that are important to her condition include albuterol inhaler, Eliquis, vitamin C, vitamin D3, zinc, and Decadron. We will continue to follow make recommendations where appropriate. Prognosis is guarded. The patient is hoping to be discharged in the near future. Plan dated 07/05/2021. Currently, the patient has been bumped up to 6 L nasal cannula. Saturations are in the low 90s. Clinically, she looks about the same as she did yesterday. She actually denies being short of breath. She remains on appropriate medications including albuterol inhaler, Eliquis, vitamin C, vitamin D3, zinc, and Decadron. We'll hoping the patient can be discharged from the hospital soon. Chest x- rays reviewed. No new labs to report. Additional recommendations and suggestions are forthcoming. We will continue to follow this patient. Prognosis is guarded. Time with Patient: Less than 30
--- NOTE | 2021-07-05 18:28 | P.PN ---
Subjective This is a pleasant 76 years old female who presents with chromic pneumonia. She has multiple medical problems but she presents with respiratory distress. Chest x-ray showing bilateral pneumonia and her, with disc and back positive. Currently she requires 6 L per minute of supplemental oxygen via nasal cannula. While d-dimer slightly elevated at 0.65. Lactate dehydrogenase at 1454 and C- reactive protein at 4.9. Liver enzymes mildly elevated. [facility] and elevated 1.34. While hemoglobin A1c is normal at 5.8%. Patient finished her REM and currently kept on dexamethasone 6 mg daily, multiple vitamins, Eliquis, Pepcid 07/03/2021 Ports improvement in her breathing better however she still on 6 L/m of oxygen via nasal cannula. No more dizziness or syncope episodes. At baseline she uses 3-5 L/m. repeated therefore we are going to do labs tomorrow morning. Extremities: Vitamin C, vitamin D and zinc. She is on dexamethasone. She is on Eliquis for her history of atrial fibrillation. 07/04/2021 Patient breathing is improving gradually and slowly. Occasional coughing. Her vitals looks stable. Her oxygen saturation is 90s with oxygen requirements dropped 6 down to 5 L/m She is breathing at a rate of 18-20, only mildly tachypneic while at rest. mild leukocytosis while on steroids, ldh and c-reactive protein slightly trended down 1075 and 1.2 respectively. she is status post Remdesivir, and now she is on dexamethasone, vitamin C, D and zinc, she is on Eliquis and Pepcid as well. 07/05/2021 Patient admitted with Covid pneumonia. At baseline she is at 3-5 L/m at home. Her oxygen saturation improved since yesterday 6 down to 5 L/m. Patient looks better to me today, she wants to go home tomorrow. She has bilateral mid lung crepitation consistent with chest x-ray finding of bilateral multifocal pneumonia. She remains on the same medication of dexamethasone, multiple vitamin, Eliquis. She finished her remdesivir Discharge in 24-48 hours if she remains stable and improved Objective - Vital Signs Vital signs: Vital Signs Temp 97.4 F L 07/05/21 08:00 Pulse 75 07/05/21 12:00 Resp 18 07/05/21 12:00 BP 122/71 07/05/21 12:00 Pulse Ox 92 L 07/05/21 12:00 Intake & Output 07/04/21 07/05/21 07/05/21 18:59 06:59 18:59 Intake Total 598 200 240 Output Total 800 Balance 598 -600 240 Intake: Intake, IV Titration 200 Amount Sodium Chloride 0.9% 1, 200 000 ml @ 50 mls/hr IV . Q20H [facility] Rx#:[id number] Oral 598 240 Output: Urine 800 Other: Voiding Method Bedside Commode # Voids 2 1 - Exam GENERAL: The patient is alert and oriented x3, not in any acute distress. Well developed, well nourished. HEENT: Pupils are round and equally reacting to light. EOMI. No scleral icterus. No conjunctival pallor. Normocephalic, atraumatic. No pharyngeal erythema. No thyromegaly. CARDIOVASCULAR: S1 and S2 present. No murmurs, rubs, or gallops. PULMONARY: Chest is clear to auscultation, no wheezing or crackles. ABDOMEN: Soft, nontender, nondistended, normoactive bowel sounds. No palpable organomegaly. MUSCULOSKELETAL: No joint swelling or deformity. EXTREMITIES: No cyanosis, clubbing, or pedal edema. NEUROLOGICAL: Gross neurological examination did not reveal any focal deficits. SKIN: No rashes. no petechiae. - Labs CBC & Chem 7: 07/04/21 08:11 07/04/21 08:11 Labs: Abnormal Lab Results - Last 24 Hours (Table) 07/04/21 07/04/21 07/05/21 Range/Units 17:02 20:36 12:00 POC Glucose (mg/dL) 244 H 212 H 116 H (75-99) mg/dL Assessment and Plan Assessment: Bilateral Covid pneumonia Acute hypoxic respiratory failure Increased inflammatory markers Chronic atrial fibrillation on Eliquis Syncope secondary to hypoxia Plan: This is a pleasant 76 years old female who presents with covid pneumonia Continue with dexamethasone Continue with vitamin C, vitamin D and zinc Pulmonary consult Labs and medication were reviewed.. Continue same treatment. Continue with symptomatic treatment. Resume home medication. Monitor lytes and vitals. DVT and GI prophylaxis. Further recommendationsas per clinical course of the patient DVT prophylaxis: Subcutaneous Lovenox GI Prophylaxis: Pepcid Prognosis is guarded
[2021-07-05 20:21] LABS: Glucose,Whole Blood 197 mg/dL (75-99)
--- NOTE | 2021-07-05 22:58 | PN ---
PROGRESS NOTE DATE OF SERVICE: 07/05/2021 REASON FOR FOLLOWUP: COVID-19 pneumonia. INTERVAL HISTORY: The patient is afebrile. The patient is breathing comfortably. The patient denies having any chest pain or shortness of breath. No worsening cough or sputum production. No abdominal pain or diarrhea. PHYSICAL EXAMINATION: Blood pressure is 106/69 with a pulse of 84, temperature 98.1. She is 95% on 6 L nasal cannula. General description is an elderly female lying in bed in no distress. Respiratory system: Unlabored breathing, decreased intensity of breath sounds. No wheeze. Heart S1, S2. Regular rate and rhythm. Abdomen soft, no tenderness. LABS: No new labs have been obtained today. Blood culture has been negative. DIAGNOSTIC IMPRESSION AND PLAN: Patient with acute COVID-19 pneumonia in this patient who has completed her five-day course of Remdesivir. Chest x-ray with no worsening. Patient currently on Eliquis, dexamethasone, zinc and ascorbic acid; to continue and continue with supportive care. MMODL / IJN: [id number] /
[2021-07-06 00:54] VITALS: RESP 18
[2021-07-06 06:16] LABS: Glucose,Whole Blood 112 mg/dL (75-99)
[2021-07-06] MEDS: INSULIN ASPART (NovoLOG) 100 UNIT/ML VIAL SQ SCH ×2 (06:42→16:04)
[2021-07-06] MEDS: PANTOPRAZOLE 40 MG TABLET PO SCH (06:44)
[2021-07-06 08:02] LABS: Glucose,Whole Blood 101 mg/dL (75-99)
[2021-07-06] MEDS: dexAMETHasone 2 MG TAB PO SCH (08:52)
[2021-07-06] MEDS: ASCORBIC ACID 500 MG TAB PO SCH (08:52)
[2021-07-06] MEDS: METOPROLOL TARTRATE 25 MG TAB PO SCH (08:52)
[2021-07-06] MEDS: ZINC SULFATE 220 MG CAP PO SCH (08:52)
[2021-07-06] MEDS: FUROSEMIDE 20 MG TAB PO SCH (08:52)
[2021-07-06] MEDS: APIXABAN 5 MG TAB PO SCH (08:53)
[2021-07-06] MEDS: CHOLECALCIFEROL 25 MCG (1000 IU) TABLET PO SCH (08:53)
[2021-07-06 09:55] VITALS: BMI 25.0
[2021-07-06 09:59] VITALS: BP 119/73; PULSE 94; TEMP 97.6
[2021-07-06] MEDS: ALBUTEROL HFA INHALER INHALATION SCH ×2 (10:07→10:58)
[2021-07-06 11:37] LABS: Glucose,Whole Blood 196 mg/dL (75-99)
--- NOTE | 2021-07-06 11:42 | P.PN ---
Subjective Progress Note Date: 07/06/21 07/06/2021, the patient is being seen for a follow-up. 76-year-old here patient with COVID-19 related pneumonia with secondary hypoxic respiratory failure. The patient has known to have valvular heart disease, mitral regurgitation, severe pulmonary hypertension, chronic hypoxic respiratory failure and the patient is also oxygen dependent at home. She also has hyperlipidemia. The patient came in with worsening shortness of breath. CT angiogram showed no evidence of any pulmonary embolism. There was evidence of extensive interstitial airspace disease most on the right lung. Patient checked positive for COVID-19 related pneumonia. The patient required oxygen and the patient was treated with a combination of Decadron and Remdesivir. She has some lymphopenia and the relative almost cytopenia. D-dimer was nonelevated. Creatinine was at 1.7, admission and the patient had some mild transaminitis. The patient currently is on oxygen at 6 L that was weaned down to 5 L. Her condition was stable. She was still desaturating with mobility and activity. Chest x-ray was showing still stable bilateral pulmonary infiltrates and airspace disease right more than left. She is on the combination with Eliquis. She is also on Decadron. On today's evaluation she remains somewhat between 5 and 6 L of oxygen by nasal cannula to maintain saturation above 90%. Her creatinine is normalized and is currently is down to 0.9. The pro-calcitonin level was nonelevated. The patient is being considered for discharge home today along with O2. Her most recent LDH 7 from 07/04/2021 was 1075, lower. Objective - Vital Signs Vital signs: Vital Signs Temp 97.6 F 07/06/21 08:50 Pulse 94 07/06/21 08:50 Resp 18 07/06/21 08:50 BP 119/73 07/06/21 08:50 Pulse Ox 93 L 07/06/21 10:59 Intake & Output 07/05/21 07/06/21 07/06/21 18:59 06:59 18:59 Intake Total 480 Balance 480 Weight 62 kg 62 kg Intake: Oral 480 Other: # Voids 3 1 - Exam No acute distress, oriented 3. No respiratory distress. No conversational dyspnea or use of accessory muscles. The patient remains on 6 L nasal cannula. Saturations are 92 %. HEENT examination is grossly unremarkable. Neck supple. Full range of motion. No adenopathy thyromegaly or neck vein distention. Cardiovascular examination reveals regular rhythm rate. S1-S2 normal. No S3 or S4. No discernible murmur noted. Heart rate 79 bpm. Lungs reveal bilateral rhonchi and crackles. No wheezes. Breath sounds are equal bilaterally. Breath sounds are minimally improved. Abdomen soft bowel sounds are heard. No masses or tenderness. Extremities are intact. No cyanosis clubbing or edema. Skin is without rash or lesion. Neurologic examination is brief but nonfocal. - Labs CBC & Chem 7: 07/04/21 08:11 07/04/21 08:11 Labs: Abnormal Lab Results - Last 24 Hours (Table) 07/05/21 07/05/21 07/05/21 Range/Units 12:00 16:51 20:20 POC Glucose (mg/dL) 116 H 264 H 197 H (75-99) mg/dL 07/06/21 07/06/21 Range/Units 06:14 08:00 POC Glucose (mg/dL) 112 H 101 H (75-99) mg/dL Assessment and Plan Plan: 1 Acute hypoxemic respiratory failure secondary to coronavirus associated p neumonia. The patient is still on Decadron. The patient is currently on 5-6 L by nasal cannula. Chest x-ray still showing stable bilateral pulmonary infiltrates. 2 History of pulmonary hypertension. 3 History of syncope, etiology unclear, possibly related to underlying hypoxemia. 4 Hypovolemic hyponatremia. This has recovered 5 History of chronic atrial fibrillation. Rate is controlled and the patient is Eliquis is long-term anticoagulation 6 hypertension 7 History of mitral regurgitation. plan Wean down FiO2 to 5 L of oxygen by nasal cannula and arrange home oxygen concentrator Complete a total of 10 day course of Decadron 6 mg on a daily basis The patient has home oxygen and she typically wears somewhere between 3 and 5 L per minute nasal cannula Continue anticoagulation with Eliquis The patient is being followed up by Dr. Durand and [facility]
--- NOTE | 2021-07-06 20:57 | P.PN ---
Progress Note - Text Progress Note Date: 07/06/21 REASON FOR FOLLOWUP: COVID-19 pneumonia. INTERVAL HISTORY: The patient remains to be afebrile. The patient is breathing comfortably. The patient denies having chest pain or shortness of breath. coughhas decreased in intensity no sputum production. No abdominal pain or diarrhea. PHYSICAL EXAMINATION: Blood pressure is 110/70 with a pulse of 84, temperature 98.1. She is 95% on 6 L nasal cannula. General description is an elderly female lying in bed in no distress. Respiratory system: Unlabored breathing, decreased intensity of breath sounds. No wheeze. Heart S1, S2. Regular rate and rhythm. Abdomen soft, no tenderness. LABS: reviewed DIAGNOSTIC IMPRESSION AND PLAN: Patient with acute COVID-19 pneumonia in this patient who has completed her five-day course of Remdesivir. Chest x-ray with no worsening. Patient currently on Eliquis, dexamethasone, zinc and ascorbic acid; to continue and close out patient follow up
--- NOTE | 2021-07-08 14:15 | P.DS ---
Providers Date of admission: 06/29/21 08:36 Expected date of discharge: 07/06/21 Attending physician: iRki Toth MD Consults: 06/27/21 02:34 Consult Physician Routine Consulting Provider: Hailey Goldman Consult Reason/Comments: elevated trops Do you want consulting provider notified?: Yes, Notify in am 06/27/21 16:17 Consult Physician Routine Consulting Provider: Joan Son Consult Reason/Comments: covid pneumonia Do you want consulting provider notified?: Yes 06/27/21 16:18 Consult Physician Routine Consulting Provider: Haseeb Degroot Consult Reason/Comments: covid- remdesivir? Do you want consulting provider notified?: Yes Primary care physician: Nuvia Lerner Hospital Course: Final Diagnoses: Acute Covid-19 pneumonia Acute hypoxic respiratory failure secondary to the above Elevated troponins, no ACS as per cardiology Hypovolemic hyponatremia Acute renal failure Pulmonary hypertension, severe Chronic atrial fibrillation on Eliquis Hypertension Severe tricuspid regurgitation Hospital course:This 68-year-old female admitted with acute code with pneumonia, hypoxic respiratory failure and multiple other medical issues. Maintained on gentle IV fluid hydration, Covid cocktail, Remdesivir, maintaining O2 sats in the 90s on 6 L nasal cannula. Afebrile, normal WBC. BUN 42, creatinine 1.28. Denies nausea vomiting or diarrhea. Reports minimal cough. Denies chest pain, palpitations or shortness of breath. Reports exertional lightheadedness. Sodium 136. Blood sugars controlled. 06/30/2021 Continues on Covid cocktail, Remdesivir, maintaining O2 sats in the 80s on 6 L, 90s on 8 L. Reports minimal cough. Slept well. Renal function improving, creatinine down to 1.18. Denies chest pain, palpitations or increased shortness of breath. 07/01/2021 productive cough, maintaining O2 sats in the 90s on 8 L nasal cannula. Minimal productive cough, afebrile. Covid cocktail, Remdesivir, Maintained on Renal function stable. Significant clinical improvement. Cleared by pulmonary and infectious disease for discharge. Patient will be discharged home today in a stable condition with guarded prognosis. Patient has been weaned down to 5 L of nasal cannula O2, currently wears between 3 and 5 L at home. Denies chest pain, palpitations. The impression and plan of care has been dictated as directed. : I performed a history and examination of this patient, discussed the same with the dictator. I agree with the dictator's note ,documented as a scribe. Any additional findings or plans will be noted. Patient Condition at Discharge: Stable Plan - Discharge Summary Discharge Rx Participant: Yes New Discharge Prescriptions: New Zinc Sulfate [Orazinc] 220 mg PO DAILY cap Ascorbic Acid [Vitamin C] 500 mg PO DAILY tab Cholecalciferol [Vitamin D3 (25 Mcg = 1000 Iu)] 25 mcg PO DAILY tablet Dexamethasone [Decadron] 6 mg PO DAILY 5 Days #5 tablet Continue Apixaban [Eliquis] 5 mg PO BID Metoprolol Tartrate [Lopressor] 25 mg PO BID Furosemide [Lasix] 20 mg PO DAILY #14 tab Ipratropium-Albuterol Nebulize [Duoneb 0.5 mg-3 mg/3 ml Soln] 3 ml INHALATION RT-BID Acetaminophen [Tylenol] 650 mg PO TID PRN PRN Reason: Pain Fluticasone Propion/Salmeterol [Fluticasone-Salmeterol 250-50] 1 puff INHALATION RT-DAILY Discharge Medication List Apixaban [Eliquis] 5 mg PO BID 11/09/18 [History] Metoprolol Tartrate [Lopressor] 25 mg PO BID 06/29/19 [History] Furosemide [Lasix] 20 mg PO DAILY #14 tab 07/04/19 [Rx] Acetaminophen [Tylenol] 650 mg PO TID PRN 06/26/21 [History] Fluticasone Propion/Salmeterol [Fluticasone-Salmeterol 250-50] 1 puff INHALATION RT-DAILY 06/26/21 [History] Ipratropium-Albuterol Nebulize [Duoneb 0.5 mg-3 mg/3 ml Soln] 3 ml INHALATION RT-BID 06/26/21 [History] Ascorbic Acid [Vitamin C] 500 mg PO DAILY tab 07/06/21 [Rx] Cholecalciferol [Vitamin D3 (25 Mcg = 1000 Iu)] 25 mcg PO DAILY tablet 07/06/21 [Rx] Dexamethasone [Decadron] 6 mg PO DAILY 5 Days #5 tablet 07/06/21 [Rx] Zinc Sulfate [Orazinc] 220 mg PO DAILY cap 07/06/21 [Rx] Follow up Appointment(s)/Referral(s): Hailey Goldman MD [STAFF PHYSICIAN] - 09/18/21 2:15 pm (Tuesday -previously scheduled appointment) [facility], [NON-STAFF] - Nuvia Lerner MD [Primary Care Provider] - 07/09/21 10:30 am ( at [facility] (where you normally go)) Patient Instructions/Handouts: Coronavirus Disease 2019 (COVID-19) Activity/Diet/Wound Care/Special Instructions: Patient wears 3-5 L at home. Follow up with your pulmonary doctor (Dr. Durand) Completed 10 day course of decadron. Discharge Disposition: HOME SELF-CARE
== END 2021-07-06 13:40 | disposition home or self-care (01) | DRG 177 ==
LOC: EC 19:42 → 3SCARD 22:36 → OBSVTOIN 06-29 08:36
PROVIDERS: ADMIT Family Medicine; ATTEND Family Medicine
PROC: XW033E5 Introduction of Remdesivir Anti-infective into Peripheral Vein, Percutaneous Approach, New Technology Group 5 (ICD-10-PCS; principal; 2021-06-29)
DX: U07.1 COVID-19 (principal); J12.82 Pneumonia due to coronavirus disease 2019; J96.21 Acute and chronic respiratory failure with hypoxia; N17.0 Acute kidney failure with tubular necrosis; E87.1 Hypo-osmolality and hyponatremia; E87.2 Acidosis; I48.19 Other persistent atrial fibrillation; J44.0 Chronic obstructive pulmonary disease with (acute) lower respiratory infection; J84.9 Interstitial pulmonary disease, unspecified; D69.6 Thrombocytopenia, unspecified; D72.810 Lymphocytopenia; E78.5 Hyperlipidemia, unspecified; E86.1 Hypovolemia; I08.1 Rheumatic disorders of both mitral and tricuspid valves; I10 Essential (primary) hypertension; I27.20 Pulmonary hypertension, unspecified; K80.20 Calculus of gallbladder without cholecystitis without obstruction; M19.041 Primary osteoarthritis, right hand; M19.042 Primary osteoarthritis, left hand; K21.9 Gastro-esophageal reflux disease without esophagitis; K44.9 Diaphragmatic hernia without obstruction or gangrene; M19.90 Unspecified osteoarthritis, unspecified site; M54.50 Low back pain, unspecified; R74.01 Elevation of levels of liver transaminase levels; R77.8 Other specified abnormalities of plasma proteins; Z79.01 Long term (current) use of anticoagulants; Z79.899 Other long term (current) drug therapy; Z80.0 Family history of malignant neoplasm of digestive organs; Z82.5 Family history of asthma and other chronic lower respiratory diseases; Z87.891 Personal history of nicotine dependence; Z90.710 Acquired absence of both cervix and uterus; Z99.81 Dependence on supplemental oxygen
CPT/HCPCS: 36415; 70450; 71045; 71250; 80048; 80053; 83036; 83605; 83615; 83735; 84145; 84484; 85025; 85379; 85610; 85730; 86140; 86850; 86900; 86901; 87040; 87636; 93005; 93308; 93970; 94640; 94760; 99285

== ENCOUNTER → 2021-11-03 | Outpatient (CLI) | payer MEDICARE ==
--- NOTE | 2021-11-03 22:15 | CT ---
EXAMINATION TYPE: CT abdomen wo con DATE OF EXAM: 11/03/2021 COMPARISON: CT dated 01/04/2013 HISTORY: ENLARGED LIVER CT DLP: 413.4 mGycm Automated exposure control for dose reduction was used. TECHNIQUE: Helical acquisition of images was performed from the lung bases through the top of iliac crest to include entire abdomen. CONTRAST: Performed with Oral Contrast and without IV contrast. FINDINGS: LUNG BASES: Right pleural effusion with minimal left-sided pleural fluid. Bilateral basal pulmonary r eticulations and mild fibrotic changes. Cardiomegaly. LIVER/GB: The liver measures 20.3 cm. No definite hepatic focal lesion by this nonenhanced CT scan. S uspected gallbladder sludge/tiny calculi. PANCREAS: No definite pancreatic lesion identified. SPLEEN: No significant abnormality is seen. ADRENALS: No significant abnormality is seen. KIDNEYS: No significant abnormality is seen. BOWEL: Unremarkable stomach and duodenum. Unremarkable visualized small bowel. No signs of bowel obs truction. Colonic diverticulosis with diffuse colonic wall thickening most evident involving the sigm oid colon. Acute colitis cannot be excluded by this CT scan. LYMPH NODES: No pathologically enlarged lymph nodes. OSSEOUS STRUCTURES: Tiny sclerotic focus in the anterior aspect of the left seventh rib, nonspecific . Degenerative changes of the lumbar spine and sacroiliac joints. No gross aggressive bone lesion. An terolisthesis of L3 over L4. Bilateral L3 pars interarticularis break. Laminectomy of L3, L4 and L5. FREE AIR: No free air is visualized. OTHER: Extensive arterial atherosclerotic calcification. Sizable free abdominal and pelvic fluid with diffuse mesenteric fat stranding. Small pericardial fluid is also noted. Diffuse body wall subcutane ous edema and reactive fluid. Please correlate clinically for volume overload or third spacing. IMPRESSION: Enlarged liver as described above. No definite hepatic focal lesion by this nonenhanced CT scan. Diff use abdominal and pelvic fluid with small pleural effusions and pericardial effusion. Recommend furth er workup for volume overload/third spacing. Diffuse wall thickening of the colon, acute colitis darlene ot be excluded. Other findings as described above.
== END | disposition home or self-care (01) ==
LOC: RADCTMAIN 14:51
PROVIDERS: ATTEND Family Medicine
DX: R16.0 Hepatomegaly, not elsewhere classified (principal); J90 Pleural effusion, not elsewhere classified; I31.3 Pericardial effusion (noninflammatory)
CPT/HCPCS: 36415; 74150; 82565; 84520

== ENCOUNTER 2022-02-01 14:52 | Inpatient (IN) | payer MEDICARE ==
[2022-02-01 15:48] LABS: Anisocytosis Moderate; Basophils # (A) 0.1 k/uL (0-0.2); Basophils % (A) 1 %; Eosinophils % (A) 0 %; Hypochromasia Marked; Lymphocytes # (A) 0.8 k/uL (1.0-4.8); Lymphocytes % (A) 10 %; MCH 30.1 pg (25.0-35.0); MCHC 30.4 g/dL (31.0-37.0); MCV 98.9 fL (80.0-100.0); Macrocytosis Moderate; Monocytes # (A) 0.4 k/uL (0-1.0); Monocytes % (A) 5 %; Neutrophils # (A) 7.1 k/uL (1.3-7.7); Neutrophils % (A) 83 %; Platelet Count 262 k/uL (150-450); Poikilocytosis Slight; RBC 1.92 m/uL (3.80-5.40); WBC 8.5 k/uL (3.8-10.6)
[2022-02-01 15:49] LABS: Albumin 3.8 g/dL (3.5-5.0); Potassium 4.1 mmol/L (3.5-5.1); Total Bilirubin 2.1 mg/dL (0.2-1.3); Total Protein 6.2 g/dL (6.3-8.2)
[2022-02-01 15:55] LABS: HGB 5.8 gm/dL (11.4-16.0)
[2022-02-01 16:05] LABS: Polychromasia Present
--- NOTE | 2022-02-01 17:17 | ED ---
General Adult HPI - General Chief complaint: Shortness of Breath Stated complaint: Low Hemoglobin Time Seen by Provider: 02/01/22 16:25 Source: patient, RN notes reviewed, old records reviewed Mode of arrival: ambulatory Limitations: no limitations - History of Present Illness Initial comments: Patient is a 76-year-old female with past medical history remarkable for atrial fibrillation on eliquis stopped 4- 5 days ago, heart failure on Lasix, COPD on 6 L nasal cannula at baseline, presents emergency Department complaining of worsening weakness, which is profound over the last 1-2 weeks. Was evaluated last week and outside hospital and Hemoccult was found V6 at that time. Was not transfused. Was discharged home. Presents for continued weakness, shortness of breath. Endorses lower extremity edema which is improving. She denies any dark red her bright red stools. Denies any hematemesis. Denies any blood in her urine. States she does occasionally get a nosebleed but no bad ones recently. Denies any known source of bleeding at this time. Denies any nausea, vomiting, abdominal pain. Has no chest pain. Endorses that weakness, increased fatigue, as well as shortness of breath which seems slightly worse. Has been off of her blood thinning medication for the last 4 days. Presents for further evaluation at this time. Workup was initially started in triage. Was recently discharged home from another hospital a few weeks ago after staying for heart failure exacerbation. Increased Lasix at that time. - Related Data Home Medications Medication Instructions Recorded Confirmed Apixaban [Eliquis] 5 mg PO DIRECTED 11/09/18 02/01/22 Metoprolol Tartrate [Lopressor] 25 mg PO BID 06/29/19 02/01/22 Acetaminophen [Tylenol] 325 mg PO TID PRN 06/26/21 02/01/22 Fluticasone Propion/Salmeterol 1 puff INHALATION RT-BID 06/26/21 02/01/22 [Fluticasone-Salmeterol 250-50] Ipratropium-Albuterol Nebulize 3 ml INHALATION RT-BID PRN 06/26/21 02/01/22 [Duoneb 0.5 mg-3 mg/3 ml Soln] Albuterol Sulfate [Ventolin HFA] 1 puff INHALATION RT-Q4H PRN 02/01/22 02/01/22 Atorvastatin [Lipitor] 40 mg PO DAILY 02/01/22 02/01/22 Furosemide [Lasix] 40 mg PO DAILY 02/01/22 02/01/22 Potassium Chloride ER [K-Dur 10] 10 meq PO DAILY 02/01/22 02/01/22 Spironolactone 25 mg PO DAILY 02/01/22 02/01/22 Allergies Allergy/AdvReac Type Severity Reaction Status Date / Time No Known Allergies Allergy Verified 02/01/22 18:13 Review of Systems ROS Statement: Those systems with pertinent positive or pertinent negative responses have been documented in the HPI. Review of Systems: CONST: Denies fever EYES: Denies blurry vision ENT: Denies nasal congestion C/V: Denies Chest pain RESP: Endorses worsening shortness of breath with activity GI: Denies abdominal pain : Denies dysuria SKIN: Denies rash. MSK: Denies joint pain. NEURO: Endorses fatigue ROS Other: All systems not noted in ROS Statement are negative. Past Medical History Past Medical History: Atrial Fibrillation, GERD/Reflux, Hyperlipidemia, Hypertension, Osteoarthritis (OA) Additional Past Medical History / Comment(s): Mitral regurgitation, mild to moderate pulmonary HTN-per past medical hx/pt unaware, SOB with exertion, small hiatal hernia, current bilateral lower leg edema, occasional low back pain, arthritis bilateral hands. 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 Past Anesthesia/Blood Transfusion Reactions: No Reported Reaction Additional Past Anesthesia/Blood Transfusion Reaction / Comment(s): no hx blood transfusion Past Psychological History: No Psychological Hx Reported Smoking Status: Former smoker Past Alcohol Use History: None Reported Past Drug Use History: None Reported - Past Family History Mother Family Medical History: Cancer Additional Family Medical History / Comment(s): bowel Father Family Medical History: COPD Additional Family Medical History / Comment(s): emphysema Brother(s) Family Medical History: Cancer Additional Family Medical History / Comment(s): Bowel cancer. General Exam - General Exam Comments Initial Comments: General: Appears in no acute distress. HEAD: Normal with no signs of head trauma. EYES: PERRLA, EOMI, conjunctiva pale, no discharge. ENT: Hearing grossly intact, normal oropharynx. RESPIRATORY: Clear breath sounds bilaterally. No wheezes, rales, or rhonchi. No increased work of breathing. Saturating well on home 6 L nasal cannula. C/V: Regular rate and rhythm. S1 and S2 auscultated, 1+ pitting edema symmetrical bilateral lower extremities, peripheral pulses 2+ and intact throughout ABD: Abd is soft, nontender, nondistended. Rectal exam performed in the presence of a female staff member. No gross melena or hematochezia. No signs of hemorrhoids. No obvious sign of bleeding. EXT: Normal range of motion, no obvious deformity SKIN: No rashes or lesions observed on exposed skin. NEURO: Alert and oriented 4. No focal deficits. Limitations: no limitations Course Vital Signs 02/01/22 02/01/22 02/01/22 14:58 17:55 18:05 Temperature 97.7 F 98.2 F 98.0 F Pulse Rate 66 76 77 Respiratory 18 30 H 28 H Rate Blood Pressure 94/57 95/60 102/55 O2 Sat by Pulse 100 99 Oximetry 02/01/22 02/01/22 02/01/22 18:35 19:31 19:38 Temperature 98.1 F Pulse Rate 82 81 77 Respiratory 22 Rate Blood Pressure 105/64 O2 Sat by Pulse 100 Oximetry 02/01/22 02/01/22 02/01/22 20:04 22:07 22:14 Temperature 97.5 F L 97.7 F Pulse Rate 72 95 74 Respiratory 24 16 16 Rate Blood Pressure 95/61 108/72 109/57 O2 Sat by Pulse 100 100 100 Oximetry Medical Decision Making - Medical Decision Making Based on the patient's presentation and physical exam, I'm concerned for an acute cardiopulmonary process for current symptoms versus possible bleeding. Sensory or hemoglobin was low last week without transfusion. Was discharged home. Remains at 5.8 which is likely stable. Presents for further evaluation this time. Workup was started by the patient remained in triage and revealed a normocytic anemia with a hemoglobin of 5.8. Last on record for os was 12.5, which was 7-8 months ago. Patient has stable CK D. Patient has an elevated troponin of 0.276 which is likely related to the patient's acute anemia. No obvious signs of GI bleeding on workup or based on symptoms. Unknown source of bleed at this time. Vital signs are within normal limits and stable at this time. We'll additionally send off an occult blood, lactic acid, BNP, urina lysis. We will obtain a chest x-ray and transfuse the patient a total of 2 units of packed red blood cells. Patient was in agreement with this plan. EKG shows atrial fibrillation without any signs of acute ischemia.Chest x-ray shows improvement from prior, with pulmonary interstitial fibrosis still present. Occult blood is positive. I discussed the findings with the patient as well as family. I would like to admit the patient to the hospital for monitoring of her hemoglobin level. We will continue to hold her blood thinner. She was in agreement this plan. I did speak with cardiology on-call, Dr. Randall regarding her elevated troponin and he was in agreement holding blood thinning medications, not a heparin candidate. Elevated troponin is is likely a type II NSTEMI from demand ischemia.. I spoke with Dr. Spangler of surgery who agreed to evaluate the patient and was comforta ble with her remaining here as we do not have GI coverage here. We'll continue to trend the hemoglobin. A cardiology's request, we will not trend the troponin. Echo will be ordered. I re-evaluated the patient multiple times and remained having stable vital signs. I spoke with the patient's admitting physician, Dr. Toth who accepted the patient. He requested at 10 PM CBC which was ordered. Patient will continue to receive HER-2 units of packed red blood cells. She'll be admitted in stable condition. - Lab Data Result diagrams: 02/01/22 22:00 02/01/22 15:15 Lab Results 02/01/22 02/01/22 02/01/22 Range/Units 15:00 15:15 15:15 WBC 8.5 (3.8-10.6) k/uL RBC 1.92 L (3.80-5.40) m/uL Hgb 5.8 L* (11.4-16.0) gm/dL Hct 19.0 L* (34.0-46.0) % MCV 98.9 (80.0-100.0) fL MCH 30.1 (25.0-35.0) pg MCHC 30.4 L (31.0-37.0) g/dL RDW 20.0 H (11.5-15.5) % Plt Count 262 (150-450) k/uL MPV 10.0 Neutrophils % 83 % Lymphocytes % 10 % Monocytes % 5 % Eosinophils % 0 % Basophils % 1 % Neutrophils # 7.1 (1.3-7.7) k/uL Lymphocytes # 0.8 L (1.0-4.8) k/uL Monocytes # 0.4 (0-1.0) k/uL Eosinophils # 0.0 (0-0.7) k/uL Basophils # 0.1 (0-0.2) k/uL Manual Slide Review Performed Polychromasia Present Hypochromasia Marked Poikilocytosis Slight Anisocytosis Moderate Macrocytosis Moderate Sodium 136 L (137-145) mmol/L Potassium 4.1 (3.5-5.1) mmol/L Chloride 100 (98-107) mmol/L Carbon Dioxide 21 L (22-30) mmol/L Anion Gap 15 mmol/L BUN 72 H (7-17) mg/dL Creatinine 1.52 H (0.52-1.04) mg/dL Est GFR (CKD-EPI)AfAm 38 (>60 ml/min/1.73 sqM) Est GFR (CKD-EPI)NonAf 33 (>60 ml/min/1.73 sqM) Glucose 140 H (74-99) mg/dL Calcium 9.0 (8.4-10.2) mg/dL Total Bilirubin 2.1 H (0.2-1.3) mg/dL AST 23 (14-36) U/L ALT 16 (4-34) U/L Alkaline Phosphatase 101 (38-126) U/L Troponin I (0.000-0.034) ng/mL NT-Pro-B Natriuret Pep pg/mL Total Protein 6.2 L (6.3-8.2) g/dL Albumin 3.8 (3.5-5.0) g/dL Stool Occult Blood (Negative) Blood Type O Negative Blood Type Recheck O Neg Bld Type Recheck Status No Antibody Screen NEGATIVE Crossmatch See Detail Spec Expiration Date 02/04/2022 - 229902/01/22 02/01/22 02/01/22 Range/Units 15:15 15:15 17:59 WBC (3.8-10.6) k/uL RBC (3.80-5.40) m/uL Hgb (11.4-16.0) gm/dL Hct (34.0-46.0) % MCV (80.0-100.0) fL MCH (25.0-35.0) pg MCHC (31.0-37.0) g/dL RDW (11.5-15.5) % Plt Count (150-450) k/uL MPV Neutrophils % % Lymphocytes % % Monocytes % % Eosinophils % % Basophils % % Neutrophils # (1.3-7.7) k/uL Lymphocytes # (1.0-4.8) k/uL Monocytes # (0-1.0) k/uL Eosinophils # (0-0.7) k/uL Basophils # (0-0.2) k/uL Manual Slide Review Polychromasia Hypochromasia Poikilocytosis Anisocytosis Macrocytosis Sodium (137-145) mmol/L Potassium (3.5-5.1) mmol/L Chloride (98-107) mmol/L Carbon Dioxide (22-30) mmol/L Anion Gap mmol/L BUN (7-17) mg/dL Creatinine (0.52-1.04) mg/dL Est GFR (CKD-EPI)AfAm (>60 ml/min/1.73 sqM) Est GFR (CKD-EPI)NonAf (>60 ml/min/1.73 sqM) Glucose (74-99) mg/dL Calcium (8.4-10.2) mg/dL Total Bilirubin (0.2-1.3) mg/dL AST (14-36) U/L ALT (4-34) U/L Alkaline Phosphatase (38-126) U/L Troponin I 0.276 H* (0.000-0.034) ng/mL NT-Pro-B Natriuret Pep 4390 pg/mL Total Protein (6.3-8.2) g/dL Albumin (3.5-5.0) g/dL Stool Occult Blood Positive H (Negative) Blood Type Blood Type Recheck Bld Type Recheck Status Antibody Screen Crossmatch Spec Expiration Date - EKG Data -: EKG Interpreted by Me EKG Comments: 12-lead Electrocardiogram Interpretation Note EKG was reviewed and interpreted by myself. 12-lead ECG performed at 1504 is interpreted by me as revealing atrial fibrillation, rate controlled at a rate of 98 beats per minute. [place] is normal. MI Intervals unobtainable, QRS duration is 110 ms, QTc is 415 ms. There is a wandering baseline.. There were no acute ST or T wave abnormalities to suggest myocardial ischemia or injury. R wave progression across the precordium was satisfactory. By my interpretation this EKG is non-diagnostic for acute ischemia. Critical Care Time Critical Care Time: Yes Total Critical Care Time: 35 Critical Care Time: Upon my evaluation, this patient had a high probability of imminent or life- threatening deterioration due to occult GI bleed, anemia requiring blood transfusion, history of heart failure and atrial fibrillation, which required my direct attention, intervention, and personal management. I have personally provided 35 minutes of critical care time exclusive of time spent on separately billable procedures. Time includes review of laboratory data, radiology results, discussion with consultants, and monitoring for potential decompensation. Interventions were performed as documented in my note. Disposition Clinical Impression: GI bleed, Symptomatic anemia, History of atrial fibrillation, COPD (chronic obstructive pulmonary disease), Heart failure, CKD (chronic kidney disease) Disposition: ADMITTED IP TO THIS HOSP Condition: Stable Time of Disposition: 18:30
--- NOTE | 2022-02-01 17:35 | XR ---
EXAMINATION TYPE: XR chest 2V DATE OF EXAM: 02/01/2022 COMPARISON: NONE HISTORY: Short of breath TECHNIQUE: 2 views FINDINGS: Heart is enlarged. There is slight blunting of the costophrenic angles. There is coarsening of interstitial markings. Thoracic aorta is atheromatous. There are chest leads. IMPRESSION: There is some pulmonary interstitial fibrosis that is also present on old exam. There is clearing of the diffuse infiltrate in the right lung to a large extent compared to old exam. Stable c ardiomegaly.
[2022-02-01] MEDS ORDERED: NALOXONE 0.4 MG/ML 1 ML VIAL IV PRN (18:29)
[2022-02-01] MEDS ORDERED: ALBUTEROL HFA INHALER INHALATION PRN (18:33)
[2022-02-01] MEDS ORDERED: FUROSEMIDE 10 MG/ML 2 ML VIAL IV ONE (18:55)
[2022-02-01] MEDS: IPRATROPIUM-ALBUTEROL 3 ML NEB INHALATION PRN (19:28)
[2022-02-01] MEDS: SYMBICORT 80-4.5 MCG INHALER INHALATION SCH (19:28)
[2022-02-01 22:42] LABS: Anisocytosis Slight; HCT 22.1 % (34.0-46.0); HGB 7.2 gm/dL (11.4-16.0); Hypochromasia Moderate; MCH 31.3 pg (25.0-35.0); MCHC 32.4 g/dL (31.0-37.0); MCV 96.6 fL (80.0-100.0); Macrocytosis Slight; Mean Platelet Volume 9.4; Platelet Count 221 k/uL (150-450); Poikilocytosis Slight; RBC 2.29 m/uL (3.80-5.40); RDW 18.7 % (11.5-15.5); WBC 8.1 k/uL (3.8-10.6)
[2022-02-02] MEDS: METOPROLOL TARTRATE 25 MG TAB PO SCH ×3 (05:15→20:00)
[2022-02-02 05:24] LABS: Appearance,Urine Clear (Clear); Bilirubin,Urine Negative (Negative); Blood,Urine Negative (Negative); Color,Urine Yellow; Glucose,Urine (UA) Negative (Negative); Ketones,Urine Negative (Negative); Leukocyte Esterase,Urine Negative (Negative); Nitrite,Urine Negative (Negative); PH, Urine 6.5 (5.0-8.0); Protein,Urine Negative (Negative); Specific Gravity,Urine 1.015 (1.001-1.035)
[2022-02-02 07:05] LABS: Anisocytosis Slight; Basophils # (A) 0.1 k/uL (0-0.2); Basophils % (A) 1 %; Eosinophils # (A) 0.1 k/uL (0-0.7); Eosinophils % (A) 1 %; HGB 8.1 gm/dL (11.4-16.0); Hypochromasia Moderate; Lymphocytes # (A) 1.1 k/uL (1.0-4.8); Lymphocytes % (A) 12 %; MCH 30.9 pg (25.0-35.0); MCHC 32.4 g/dL (31.0-37.0); MCV 95.5 fL (80.0-100.0); Macrocytosis Slight; Monocytes # (A) 0.6 k/uL (0-1.0); Monocytes % (A) 6 %; Neutrophils % (A) 78 %; Platelet Count 210 k/uL (150-450); Poikilocytosis Moderate; RBC 2.62 m/uL (3.80-5.40)
[2022-02-02 07:27] LABS: Calcium 8.7 mg/dL (8.4-10.2); Potassium 3.9 mmol/L (3.5-5.1)
--- NOTE | 2022-02-02 08:19 | P.CRDCN ---
History of Present Illness Consult date: 02/02/22 History of present illness: History of Present Illness: The patient is a 76-year-old female with a known history of chronic persistent atrial fibrillation, pulmonary hypertension, mitral regurgitation, mild CAD and hypertension who was seen yesterday in the office with progressive dyspnea, peripheral edema and was noted to have significant anemia. She was referred to the emergency room and subsequently admitted. She was transfused yesterday and feels better today. She denies any chest discomfort, she has chronic dyspnea on exertion and is on home oxygen. She denies any palpitations. She continues to have peripheral edema but slightly better. She denies any PND. She has underwent cardiac catheterization on 11/23/2018 and had mild CAD her left ventricle systolic function was preserved with evidence of severe tricuspid regurgitation and severe pulmonary hypertension. Her activity is limited because of her chronic dyspnea on exertion. She had epistaxis but has not noted gross GI bleeding but noted occasional stool. Her anticoagulation has been on h old for the last few days. Her troponin was mildly elevated on presentation with an elevated NT proBNP. She is a nonsmoker, has a history of hyperlipidemia and hypertension. She is a nondiabetic. Her medication at home include atorvastatin 40 mg daily, metoprolol, Lasix 40 mg daily, albuterol. Review of Systems: Respiratory: She has a history of chronic dyspnea on exertion, on home oxygen and COPD GI: She had no nausea and vomiting . No history of peptic ulcer disease. She has occasional dark stool. : No hematuria or dysuria. Nervous System: No stroke or seizure. Physical Examination: 76-year-old female alert and oriented no apparent distress, blood pressure 101/50 with a heart rate in the 80s Head: Normocephalic. Eyes: Sclerae nonicteric. Neck: Good carotid upstroke, no bruit, jugular venous distention noted. Lungs: Decreased breath sounds bilaterally Heart: Irregularly irregular, S1-S2, no S3 with a holosystolic murmur 3/6 at the apex Abdomen: Soft nontender, positive bowel sounds no organomegaly. Extremities: 1-2 + edema, intact distal pulses. Labs: Hemoglobin up to 8.1 after transfusion of 2 units, BUN 70, creatinine 1.48. Potassium 3.9. On admission her hemoglobin was 5.8. Her troponin was 0.276 with NT proBNP 4390. She is heme positive. EKG shows atrial fibrillation with nonspecific ST-T wave changes. Chest x-ray shows pulmonary interstitial fibrosis Impression: 1. Acute anemia with heme-positive stool, workup in progress 2. Worsening symptoms of dyspnea with known history of severe pulmonary hypertension and history of lung disease. The patient has a known history of mitral regurgitation as well. Her symptoms have worsened because of the severe anemia 3. Mild troponin elevation secondary to type II event in a patient with mild CAD in the past 4. Chronic persistent atrial ablation was anticoagulated in the past, on hold at this time 5. History of hypertension 6. Worsening renal function secondary to the GI bleeding and anemia 7. Mitral regurgitation 8. Mild CAD by cardiac catheterization in 2019 Plan: 1. Obtain an echocardiogram with Doppler 2. Continue holding anticoagulation 3. Evaluation of the anemia and GI bleed 4. Follow renal functions 5. IV diuretics 6. Depending on her progress further recommendations will be made. Thank you for this consult we will follow with you. Past Medical History Past Medical History: Atrial Fibrillation, GERD/Reflux, Hyperlipidemia, Hyperte nsion, Osteoarthritis (OA) Additional Past Medical History / Comment(s): Mitral regurgitation, mild to moderate pulmonary HTN-per past medical hx/pt unaware, SOB with exertion, small hiatal hernia, current bilateral lower leg edema, occasional low back pain, arthritis bilateral hands. 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 Past Anesthesia/Blood Transfusion Reactions: No Reported Reaction Additional Past Anesthesia/Blood Transfusion Reaction / Comment(s): no hx blood transfusion Past Psychological History: No Psychological Hx Reported Additional Psychological History / Comment(s): Pt resides with her spouse. She is independent. Smoking Status: Former smoker Past Alcohol Use History: None Reported Additional Past Alcohol Use History / Comment(s): Pt started smoking in 1959 and quit in 1977. She was a 2ppd smoker. Past Drug Use History: None Reported - Past Family History Mother Family Medical History: Cancer Additional Family Medical History / Comment(s): bowel Father Family Medical History: COPD Additional Family Medical History / Comment(s): emphysema Brother(s) Family Medical History: Cancer Additional Family Medical History / Comment(s): Bowel cancer. Medications and Allergies Home Medications Medication Instructions Recorded Confirmed Type Apixaban [Eliquis] 5 mg PO DIRECTED 11/09/18 02/01/22 History Metoprolol Tartrate [Lopressor] 25 mg PO BID 06/29/19 02/01/22 History Acetaminophen [Tylenol] 325 mg PO TID PRN 06/26/21 02/01/22 History Fluticasone Propion/Salmeterol 1 puff INHALATION RT-BID 06/26/21 02/01/22 History [Fluticasone-Salmeterol 250-50] Ipratropium-Albuterol Nebulize 3 ml INHALATION RT-BID PRN 06/26/21 02/01/22 History [Duoneb 0.5 mg-3 mg/3 ml Soln] Albuterol Sulfate [Ventolin HFA] 1 puff INHALATION RT-Q4H PRN 02/01/22 02/01/22 History Atorvastatin [Lipitor] 40 mg PO DAILY 02/01/22 02/01/22 History Furosemide [Lasix] 40 mg PO DAILY 02/01/22 02/01/22 History Potassium Chloride ER [K-Dur 10] 10 meq PO DAILY 02/01/22 02/01/22 History Spironolactone 25 mg PO DAILY 02/01/22 02/01/22 History Allergies Allergy/AdvReac Type Severity Reaction Status Date / Time No Known Allergies Allergy Verified 02/01/22 18:13 Physical Exam Vitals: Vital Signs Temp Pulse Pulse Resp BP BP Pulse Ox 02/02/22 05:45 97.7 F 87 24 101/54 95 02/02/22 04:00 75 16 100/45 100 02/02/22 00:55 98 F 82 16 96/69 100 02/02/22 00:00 80 16 100 02/01/22 22:54 84 16 97/49 100 02/01/22 22:24 97.9 F 82 16 95/55 100 02/01/22 22:14 97.7 F 74 16 109/57 100 02/01/22 22:07 97.5 F L 95 16 108/72 100 02/01/22 20:04 72 24 95/61 100 02/01/22 19:38 77 02/01/22 19:31 81 02/01/22 18:35 98.1 F 82 22 105/64 100 02/01/22 18:05 98.0 F 77 28 H 102/55 99 02/01/22 17:55 98.2 F 76 30 H 95/60 02/01/22 14:58 97.7 F 66 18 94/57 100 Intake and Output 02/01/22 02/02/22 02/02/22 22:59 06:59 14:59 Intake Total 310 0 Balance 310 0 Intake: Blood Product 310 0 Rc As-1 Unit 310 [id number] Rc Pheresis 2 As3 Unit 0 0 [id number] Other: Voiding Method External Catheter Weight 63.503 kg Results 02/02/22 06:34 02/02/22 06:34 Cardiac Enzymes 02/01/22 02/01/22 Range/Units 15:15 15:15 AST 23 (14-36) U/L Troponin I 0.276 H* (0.000-0.034) ng/mL CBC 02/01/22 02/01/22 02/02/22 Range/Units 15:15 22:00 06:34 WBC 8.5 8.1 9.0 (3.8-10.6) k/uL RBC 1.92 L 2.29 L 2.62 L (3.80-5.40) m/uL Hgb 5.8 L* 7.2 L 8.1 L (11.4-16.0) gm/dL Hct 19.0 L* 22.1 L 25.0 L (34.0-46.0) % Plt Count 262 221 210 (150-450) k/uL Comprehensive Metabolic Panel 02/01/22 02/02/22 Range/Units 15:15 06:34 Sodium 136 L 140 (137-145) mmol/L Potassium 4.1 3.9 (3.5-5.1) mmol/L Chloride 100 108 H (98-107) mmol/L Carbon Dioxide 21 L 23 (22-30) mmol/L BUN 72 H 70 H (7-17) mg/dL Creatinine 1.52 H 1.48 H (0.52-1.04) mg/dL Glucose 140 H 93 (74-99) mg/dL Calcium 9.0 8.7 (8.4-10.2) mg/dL AST 23 (14-36) U/L ALT 16 (4-34) U/L Alkaline Phosphatase 101 (38-126) U/L Total Protein 6.2 L (6.3-8.2) g/dL Albumin 3.8 (3.5-5.0) g/dL Current Medications Generic Name Dose Route Start Last Admin Trade Name Freq PRN Reason Stop Dose Admin Albuterol Sulfate 1 puff 02/01/22 18:33 Albuterol Hfa Inhaler INHALATION RT-Q4H PRN Shortness Of Breath Albuterol/Ipratropium 3 ml 02/01/22 18:32 02/01/22 19:28 Ipratropium-Albuterol 3 Ml Neb INHALATION 3 ml RT-BID PRN Administration Shortness Of Breath Atorvastatin Calcium 40 mg 02/02/22 09:00 Atorvastatin 40 Mg Tab PO DAILY JOLENE Budesonide/Formoterol Fumarate 2 puff 02/01/22 20:00 02/01/22 19:28 Symbicort 80-4.5 Mcg Inhaler INHALATION 2 puff RT-BID JOLENE Administration Furosemide 40 mg 02/02/22 09:00 Furosemide 40 Mg Tab PO DAILY JOLENE Metoprolol Tartrate 25 mg 02/01/22 21:00 02/02/22 05:15 Metoprolol Tartrate 25 Mg Tab PO Not Given BID JOLENE Naloxone HCl 0.2 mg 02/01/22 18:29 Naloxone 0.4 Mg/Ml 1 Ml Vial IV Q2M PRN Opioid Reversal Spironolactone 25 mg 02/02/22 09:00 Spironolactone 25 Mg Tab PO DAILY JOLENE Intake and Output 02/01/22 02/02/22 02/02/22 22:59 06:59 14:59 Intake Total 310 0 Balance 310 0 Intake: Blood Product 310 0 Rc As-1 Unit 310 [id number] Rc Pheresis 2 As3 Unit 0 0 [id number] Other: Voiding Method External Catheter Weight 63.503 kg 02/02/22 06:34 02/02/22 06:34
[2022-02-02] MEDS: SYMBICORT 80-4.5 MCG INHALER INHALATION SCH ×2 (08:49→19:07)
[2022-02-02] MEDS: IPRATROPIUM-ALBUTEROL 3 ML NEB INHALATION PRN (08:49)
[2022-02-02] MEDS ORDERED: PANTOPRAZOLE 40 MG/10 ML VIAL IVP SCH (09:00)
[2022-02-02] MEDS ORDERED: FUROSEMIDE 40 MG TAB PO SCH (09:00)
[2022-02-02] MEDS: ATORVASTATIN 40 MG TAB PO SCH (09:08)
[2022-02-02] MEDS: FUROSEMIDE 10 MG/ML 4 ML VIAL IV SCH ×2 (09:08→20:00)
[2022-02-02] MEDS: SPIRONOLACTONE 25 MG TAB PO SCH (09:08)
--- NOTE | 2022-02-02 12:23 | P.GSCN ---
History of Present Illness Consult date: 02/02/22 History of present illness: CHIEF COMPLAINT: Anemia HISTORY OF PRESENT ILLNESS: This is a 76-year-old female who has a known history of atrial fibrillation and anticoagulated with Eliquis. Apparently her L at [facility] has been stopped for the last few days. She had been having nosebleeds. She denies any blood in her stools or black stools. Her hemoglobin was 5.8 on admission. She did receive a unit of blood and hemoglobin is now 8.1. She presented to the hospital with weakness and shortness of breath. She did have elevated troponins. She has been evaluated by cardiology service. Patient also had recent hospitalization for CHF exacerbation and is currently on IV Lasix. Patient denies any abdominal pain. Denies any nausea or vomiting. Patient had reported a hemoglobin of 6 at discharge on her previous hospitalization. Patient seen and examined with Dr. cao PAST MEDICAL HISTORY: Atrial Fibrillation, GERD/Reflux, Hyperlipidemia, Hypertension, Osteoarthritis, mild to moderate pulmonary hypertension, mitral regurgitation, small hiatal hernia PAST SURGICAL HISTORY: Heart catheterization, hysterectomy MEDICATIONS: See list. ALLERGIES: See list. SOCIAL HISTORY: No illicit drug use. REVIEW OF SYSTEMS: CONSTITUTIONAL: Denies fever or chills. HEENT: Denies blurred vision, vision changes, or eye pain. Denies hemoptysis CARDIOVASCULAR: Denies chest pain or pressure. RESPIRATORY: No shortness of breath. GASTROINTESTINAL: See HPI for pertinent findings HEMATOLOGIC: Denies bleeding disorders. GENITOURINARY: Denies any blood in urine or increased urinary frequency. SKIN: Denies pruitis. Denies rash. PHYSICAL EXAM: VITAL SIGNS: Reviewed GENERAL: Well-developed in no acute distress. HEENT: No sclera icterus. Extraocular movements grossly intact. Moist buccal mucosa. Head is atraumatic, normocephalic. No nasal drainage. ABDOMEN: Soft. Nondistended. Nondistended NEUROLOGIC: Alert and oriented. Cranial nerves II through XII grossly intact. LABORATORY DATA: WBC 9 Hgb 7.2 up to 8.1 platelets 210 Sodium is 140 potassium is 3.9 creatinine 1.48 Lactic acid 2.2 down to 1.7 Elevated troponin BNP 4390 Stool for occult blood positive IMAGING: Chest x-ray some pulmonary interstitial fibrosis that was present on old exam. There is clearing of the diffuse infiltrate in the right lung compared to old exam. Stable cardiomegaly ASSESSMENT: 1. GI bleed with Normocytic anemia and stool positive for occult blood 2. Shortness of breath 3. History of mild to moderate pulmonary hypertension 4. Atrial fibrillation 5. Elevated troponin followed by cardiology service PLAN: -Patient scheduled for EGD and colonoscopy on , 02/04/[address] cao -Start full liquid diet tonight -Clear liquid diet tomorrow morning -Start GoLYTELY prep tomorrow morning -Continue to monitor hemoglobin -Continue to monitor for any signs or symptoms of bleeding -Continue Protonix -keep Eliquis on hold Thank you for this consultation Physician Teacher Assistant note has been reviewed by physician. Signing provider agrees with the documented findings, assessment, and plan of care. Past Medical History Past Medical History: Atrial Fibrillation, GERD/Reflux, Hyperlipidemia, Hypertension, Osteoarthritis (OA) Additional Past Medical History / Comment(s): Mitral regurgitation, mild to moderate pulmonary HTN-per past medical hx/pt unaware, SOB with exertion, small hiatal hernia, current bilateral lower leg edema, occasional low back pain, arthritis bilateral hands. 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 Past Anesthesia/Blood Transfusion Reactions: No Reported Reaction Additional Past Anesthesia/Blood Transfusion Reaction / Comm: no hx blood transfusion Past Psychological History: No Psychological Hx Reported Additional Psychological History / Comment(s): Pt resides with her spouse. She is independent. Smoking Status: Former smoker Past Alcohol Use History: None Reported Additional Past Alcohol Use History / Comment(s): Pt started smoking in 1959 and quit in 1977. She was a 2ppd smoker. Past Drug Use History: None Reported - Past Family History Mother Family Medical History: Cancer Additional Family Medical History / Comment(s): bowel Father Family Medical History: COPD Additional Family Medical History / Comment(s): emphysema Brother(s) Family Medical History: Cancer Additional Family Medical History / Comment(s): Bowel cancer. Medications and Allergies Home Medications Medication Instructions Recorded Confirmed Type Apixaban [Eliquis] 5 mg PO DIRECTED 11/09/18 02/01/22 History Metoprolol Tartrate [Lopressor] 25 mg PO BID 06/29/19 02/01/22 History Acetaminophen [Tylenol] 325 mg PO TID PRN 06/26/21 02/01/22 History Fluticasone Propion/Salmeterol 1 puff INHALATION RT-BID 06/26/21 02/01/22 History [Fluticasone-Salmeterol 250-50] Ipratropium-Albuterol Nebulize 3 ml INHALATION RT-BID PRN 06/26/21 02/01/22 History [Duoneb 0.5 mg-3 mg/3 ml Soln] Albuterol Sulfate [Ventolin HFA] 1 puff INHALATION RT-Q4H PRN 02/01/22 02/01/22 History Atorvastatin [Lipitor] 40 mg PO DAILY 02/01/22 02/01/22 History Furosemide [Lasix] 40 mg PO DAILY 02/01/22 02/01/22 History Potassium Chloride ER [K-Dur 10] 10 meq PO DAILY 02/01/22 02/01/22 History Spironolactone 25 mg PO DAILY 02/01/22 02/01/22 History Allergies Allergy/AdvReac Type Severity Reaction Status Date / Time No Known Allergies Allergy Verified 02/01/22 18:13 Surgical - Exam Vital Signs Temp Pulse Resp BP Pulse Ox 97.7 F 66 18 94/57 100 02/01/22 14:58 02/01/22 14:58 02/01/22 14:58 02/01/22 14:58 02/01/22 14:58 Results - Labs 02/02/22 06:34 02/02/22 06:34 Abnormal Lab Results - Last 24 Hours (Table) 02/01/22 02/01/22 02/01/22 Range/Units 15:00 15:15 15:15 RBC 1.92 L (3.80-5.40) m/uL Hgb 5.8 L* (11.4-16.0) gm/dL Hct 19.0 L* (34.0-46.0) % MCHC 30.4 L (31.0-37.0) g/dL RDW 20.0 H (11.5-15.5) % Lymphocytes # 0.8 L (1.0-4.8) k/uL Sodium 136 L (137-145) mmol/L Chloride (98-107) mmol/L Carbon Dioxide 21 L (22-30) mmol/L BUN 72 H (7-17) mg/dL Creatinine 1.52 H (0.52-1.04) mg/dL Glucose 140 H (74-99) mg/dL Plasma Lactic Acid Bony (0.7-2.0) mmol/L Total Bilirubin 2.1 H (0.2-1.3) mg/dL Troponin I (0.000-0.034) ng/mL Total Protein 6.2 L (6.3-8.2) g/dL Stool Occult Blood (Negative) Crossmatch See Detail 02/01/22 02/01/22 02/01/22 Range/Units 15:15 17:59 20:45 RBC (3.80-5.40) m/uL Hgb (11.4-16.0) gm/dL Hct (34.0-46.0) % MCHC (31.0-37.0) g/dL RDW (11.5-15.5) % Lymphocytes # (1.0-4.8) k/uL Sodium (137-145) mmol/L Chloride (98-107) mmol/L Carbon Dioxide (22-30) mmol/L BUN (7-17) mg/dL Creatinine (0.52-1.04) mg/dL Glucose (74-99) mg/dL Plasma Lactic Acid Bony 2.2 H* (0.7-2.0) mmol/L Total Bilirubin (0.2-1.3) mg/dL Troponin I 0.276 H* (0.000-0.034) ng/mL Total Protein (6.3-8.2) g/dL Stool Occult Blood Positive H (Negative) Crossmatch 02/01/22 02/02/22 02/02/22 Range/Units 22:00 06:34 06:34 RBC 2.29 L 2.62 L (3.80-5.40) m/uL Hgb 7.2 L 8.1 L (11.4-16.0) gm/dL Hct 22.1 L 25.0 L (34.0-46.0) % MCHC (31.0-37.0) g/dL RDW 18.7 H 19.0 H (11.5-15.5) % Lymphocytes # (1.0-4.8) k/uL Sodium (137-145) mmol/L Chloride 108 H (98-107) mmol/L Carbon Dioxide (22-30) mmol/L BUN 70 H (7-17) mg/dL Creatinine 1.48 H (0.52-1.04) mg/dL Glucose (74-99) mg/dL Plasma Lactic Acid Bony (0.7-2.0) mmol/L Total Bilirubin (0.2-1.3) mg/dL Troponin I (0.000-0.034) ng/mL Total Protein (6.3-8.2) g/dL Stool Occult Blood (Negative) Crossmatch Diabetes panel 02/01/22 02/02/22 Range/Units 15:15 06:34 Sodium 136 L 140 (137-145) mmol/L Potassium 4.1 3.9 (3.5-5.1) mmol/L Chloride 100 108 H (98-107) mmol/L Carbon Dioxide 21 L 23 (22-30) mmol/L BUN 72 H 70 H (7-17) mg/dL Creatinine 1.52 H 1.48 H (0.52-1.04) mg/dL Glucose 140 H 93 (74-99) mg/dL Calcium 9.0 8.7 (8.4-10.2) mg/dL AST 23 (14-36) U/L ALT 16 (4-34) U/L Alkaline Phosphatase 101 (38-126) U/L Total Protein 6.2 L (6.3-8.2) g/dL Albumin 3.8 (3.5-5.0) g/dL Calcium panel 02/01/22 02/02/22 Range/Units 15:15 06:34 Calcium 9.0 8.7 (8.4-10.2) mg/dL Albumin 3.8 (3.5-5.0) g/dL Pituitary panel 02/01/22 02/02/22 Range/Units 15:15 06:34 Sodium 136 L 140 (137-145) mmol/L Potassium 4.1 3.9 (3.5-5.1) mmol/L Chloride 100 108 H (98-107) mmol/L Carbon Dioxide 21 L 23 (22-30) mmol/L BUN 72 H 70 H (7-17) mg/dL Creatinine 1.52 H 1.48 H (0.52-1.04) mg/dL Glucose 140 H 93 (74-99) mg/dL Calcium 9.0 8.7 (8.4-10.2) mg/dL Adrenal panel 02/01/22 02/02/22 Range/Units 15:15 06:34 Sodium 136 L 140 (137-145) mmol/L Potassium 4.1 3.9 (3.5-5.1) mmol/L Chloride 100 108 H (98-107) mmol/L Carbon Dioxide 21 L 23 (22-30) mmol/L BUN 72 H 70 H (7-17) mg/dL Creatinine 1.52 H 1.48 H (0.52-1.04) mg/dL Glucose 140 H 93 (74-99) mg/dL Calcium 9.0 8.7 (8.4-10.2) mg/dL Total Bilirubin 2.1 H (0.2-1.3) mg/dL AST 23 (14-36) U/L ALT 16 (4-34) U/L Alkaline Phosphatase 101 (38-126) U/L Total Protein 6.2 L (6.3-8.2) g/dL Albumin 3.8 (3.5-5.0) g/dL
--- NOTE | 2022-02-02 16:40 | P.HPIM ---
History of Present Illness H&P Date: 02/02/22 Chief Complaint: Increased weakness, falls, shortness of breath This is a 76-year-old female with past medical history of peptic ulcer disease, diverticulosis ,chronic persistent atrial fibrillation on Eliquis, hypertension, hyperlipidemia, severe pulmonary hypertension, severe tricuspid regurgitation, gastroesophageal reflux disease, chronic respiratory failure, wears 6 L at home, former nicotine dependenceand multiple other medical issues referred to the ER per cardiology. Patient reports she had presented for her cardiology appointment, reported increased weakness, falls 3, dizziness. Denies syncope. Denies chest pain, palpitations Eliquis was stopped and she was sent to the ER.Reports stools were dark but did not see blood or clots in either stool or urine. Denies nausea or vomiting. Denies abdominal pain. Hemoglobin on admission 7.2, received 2 unist of packed RBC currently 8.1. Platelets 210. Renal function slowly improving, BUN 70, creatinine 1.48. Lactic acid 2.2 on admission, improved with IV fluid hydration, decreased to 1.7. EKG reportedly atrial fibrillation, incomplete right bundle branch block, Troponin elevated 0.276, proBNP 4390, UA negative, stool for occult blood positive. Currently requiring 5 L nasal cannula O2 to maintain O2 sats in the 90s in a patient who wears 6 L at home. Chest x-ray reporting some pulmonary interstitial fibrosis, present on prior exam, clearing of diffuse infiltrate in the right lung to a large extent compared to prior exam. Review of Systems ROS Statement: Those systems with pertinent positive or pertinent negative responses have been documented in the HPI. ROS Other: All systems not noted in ROS Statement are negative. Past Medical History Past Medical History: Atrial Fibrillation, GERD/Reflux, Hyperlipidemia, Hypertension, Osteoarthritis (OA) Additional Past Medical History / Comment(s): Mitral regurgitation, mild to moderate pulmonary HTN-per past medical hx/pt unaware, SOB with exertion, small hiatal hernia, current bilateral lower leg edema, occasional low back pain, arthritis bilateral hands. 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 Past Anesthesia/Blood Transfusion Reactions: No Reported Reaction Additional Past Anesthesia/Blood Transfusion Reaction / Comment(s): no hx blood transfusion Past Psychological History: No Psychological Hx Reported Additional Psychological History / Comment(s): Pt resides with her spouse. She is independent. Smoking Status: Former smoker Past Alcohol Use History: None Reported Additional Past Alcohol Use History / Comment(s): Pt started smoking in 7 and quit in 1977. She was a 2ppd smoker. Past Drug Use History: None Reported - Past Family History Mother Family Medical History: Cancer Additional Family Medical History / Comment(s): bowel Father Family Medical History: COPD Additional Family Medical History / Comment(s): emphysema Brother(s) Family Medical History: Cancer Additional Family Medical History / Comment(s): Bowel cancer. Medications and Allergies Home Medications Medication Instructions Recorded Confirmed Type Apixaban [Eliquis] 5 mg PO DIRECTED 11/09/18 02/01/22 History Metoprolol Tartrate [Lopressor] 25 mg PO BID 06/29/19 02/01/22 History Acetaminophen [Tylenol] 325 mg PO TID PRN 06/26/21 02/01/22 History Fluticasone Propion/Salmeterol 1 puff INHALATION RT-BID 06/26/21 02/01/22 History [Fluticasone-Salmeterol 250-50] Ipratropium-Albuterol Nebulize 3 ml INHALATION RT-BID PRN 06/26/21 02/01/22 History [Duoneb 0.5 mg-3 mg/3 ml Soln] Albuterol Sulfate [Ventolin HFA] 1 puff INHALATION RT-Q4H PRN 02/01/22 02/01/22 History Atorvastatin [Lipitor] 40 mg PO DAILY 02/01/22 02/01/22 History Furosemide [Lasix] 40 mg PO DAILY 02/01/22 02/01/22 History Potassium Chloride ER [K-Dur 10] 10 meq PO DAILY 02/01/22 02/01/22 History Spironolactone 25 mg PO DAILY 02/01/22 02/01/22 History Allergies Allergy/AdvReac Type Severity Reaction Status Date / Time No Known Allergies Allergy Verified 02/01/22 18:13 Physical Exam Vitals: Vital Signs Temp Pulse Pulse Resp BP BP Pulse Ox 02/02/22 12:00 98.4 F 76 20 100/58 97 02/02/22 09:00 76 02/02/22 08:49 79 97 02/02/22 08:00 97.6 F 83 17 100/64 99 02/02/22 05:45 97.7 F 87 24 101/54 95 02/02/22 04:00 75 16 100/45 100 02/02/22 00:55 98 F 82 16 96/69 100 02/02/22 00:00 80 16 100 02/01/22 22:54 84 16 97/49 100 02/01/22 22:24 97.9 F 82 16 95/55 100 02/01/22 22:14 97.7 F 74 16 109/57 100 02/01/22 22:07 97.5 F L 95 16 108/72 100 02/01/22 20:04 72 24 95/61 100 02/01/22 19:38 77 02/01/22 19:31 81 02/01/22 18:35 98.1 F 82 22 105/64 100 02/01/22 18:05 98.0 F 77 28 H 102/55 99 02/01/22 17:55 98.2 F 76 30 H 95/60 Intake and Output 02/02/22 02/02/22 02/02/22 06:59 14:59 22:59 Intake Total 0 236 Balance 0 236 Intake: Oral 236 Blood Product 0 Rc Pheresis 2 As3 Unit 0 [id number] Other: Voiding Method External Catheter External Catheter Weight 63.503 kg - Exam PHYSICAL EXAM: VITAL SIGNS: As above GENERAL: Alert and oriented 3, Sitting up in bed, no acute distress HEENT: Conjunctivae normal. eyes normal. NECK: Supple, + JVD. CARDIOVASCULAR: S1, S2, irregular. Systolic murmur. RESPIRATION: Breath sounds diminished in the bases.CTA. ABDOMEN: Soft, nontender . No guarding. no masses palpable.Bowel sounds heard. LEGS: Positive edema, no clubbing, no cyanosis, +DP NERVOUS SYSTEM: Cranial N 2-12 grossly normal. No focal deficits. Strength and sensation grossly intact. Skin: Warm and dry, no rash Results CBC & Chem 7: 02/02/22 06:34 02/02/22 06:34 Labs: Abnormal Lab Results - Last 24 Hours (Table) 02/01/22 02/01/22 02/01/22 Range/Units 15:00 15:15 15:15 RBC 1.92 L (3.80-5.40) m/uL Hgb 5.8 L* (11.4-16.0) gm/dL Hct 19.0 L* (34.0-46.0) % MCHC 30.4 L (31.0-37.0) g/dL RDW 20.0 H (11.5-15.5) % Lymphocytes # 0.8 L (1.0-4.8) k/uL Sodium 136 L (137-145) mmol/L Chloride (98-107) mmol/L Carbon Dioxide 21 L (22-30) mmol/L BUN 72 H (7-17) mg/dL Creatinine 1.52 H (0.52-1.04) mg/dL Glucose 140 H (74-99) mg/dL Plasma Lactic Acid Bony (0.7-2.0) mmol/L Total Bilirubin 2.1 H (0.2-1.3) mg/dL Troponin I (0.000-0.034) ng/mL Total Protein 6.2 L (6.3-8.2) g/dL Stool Occult Blood (Negative) Crossmatch See Detail 02/01/22 02/01/22 02/01/22 Range/Units 15:15 17:59 20:45 RBC (3.80-5.40) m/uL Hgb (11.4-16.0) gm/dL Hct (34.0-46.0) % MCHC (31.0-37.0) g/dL RDW (11.5-15.5) % Lymphocytes # (1.0-4.8) k/uL Sodium (137-145) mmol/L Chloride (98-107) mmol/L Carbon Dioxide (22-30) mmol/L BUN (7-17) mg/dL Creatinine (0.52-1.04) mg/dL Glucose (74-99) mg/dL Plasma Lactic Acid Bony 2.2 H* (0.7-2.0) mmol/L Total Bilirubin (0.2-1.3) mg/dL Troponin I 0.276 H* (0.000-0.034) ng/mL Total Protein (6.3-8.2) g/dL Stool Occult Blood Positive H (Negative) Crossmatch 02/01/22 02/02/22 02/02/22 Range/Units 22:00 06:34 06:34 RBC 2.29 L 2.62 L (3.80-5.40) m/uL Hgb 7.2 L 8.1 L (11.4-16.0) gm/dL Hct 22.1 L 25.0 L (34.0-46.0) % MCHC (31.0-37.0) g/dL RDW 18.7 H 19.0 H (11.5-15.5) % Lymphocytes # (1.0-4.8) k/uL Sodium (137-145) mmol/L Chloride 108 H (98-107) mmol/L Carbon Dioxide (22-30) mmol/L BUN 70 H (7-17) mg/dL Creatinine 1.48 H (0.52-1.04) mg/dL Glucose (74-99) mg/dL Plasma Lactic Acid Bony (0.7-2.0) mmol/L Total Bilirubin (0.2-1.3) mg/dL Troponin I (0.000-0.034) ng/mL Total Protein (6.3-8.2) g/dL Stool Occult Blood (Negative) Crossmatch Thrombosis Risk Factor Assmnt - Choose All That Apply Each Risk Factor Represents 3 Points: Age 75 years or older Thrombosis Risk Factor Assessment Total Risk Factor Score: 3 Thrombosis Risk Factor Assessment Level: Moderate Risk Assessment and Plan Assessment: GI bleed, symptomatic anemia, positive stool- occult blood, normocytic anemia, in a patient who reports her last colonoscopy was 5-6 years ago and reported diverticulosis, status post transfusion of 2 units packed RBCs Troponin elevated, secondary possibly to the above, cardiology following Lactic acidosis, resolved with IV fluid hydration Chronic hypoxic respiratory failure, wears 6 L nasal cannula O2 at home Acute renal failure. History of Covid-19 pneumonia, 06/28 Chronic Pulmonary hypertension, severe Chronic atrial fibrillation,Eliquis on hold Hypertension Severe tricuspid regurgitation Former nicotine dependence Plan: Continue on current medication regime, monitoring and symptomatically treatment. Eliquis on hold. Close monitoring of hemoglobin and renal function.Echo pending. Diuretics as per cardiology. Surgery and cardiology consult in place. EGD and colonoscopy pending. PPI for GI prophylaxis. Prognosis guarded given multiple complex medical issues. The impression and plan of care has been dictated as directed. : I performed a history and examination of this patient, discussed the same with the dictator. I agree with the dictator's note ,documented as a scribe. Any additional findings or plans will be noted.
[2022-02-02] MEDS: PANTOPRAZOLE 40 MG TABLET PO SCH (20:00)
[2022-02-03] MEDS: SYMBICORT 80-4.5 MCG INHALER INHALATION SCH ×2 (07:45→20:12)
[2022-02-03] MEDS ORDERED: PEG 3350-NA SULF,BICARB,CL/KCL 4,000 ML BOTTLE PO ONE (09:00)
[2022-02-03 09:20] LABS: Anisocytosis Slight; HCT 21.2 % (34.0-46.0); Hypochromasia Moderate; MCH 30.7 pg (25.0-35.0); MCHC 31.9 g/dL (31.0-37.0); Macrocytosis Slight; Mean Platelet Volume 8.9; Platelet Count 217 k/uL (150-450); Poikilocytosis Moderate; RBC 2.21 m/uL (3.80-5.40); RDW 19.2 % (11.5-15.5); WBC 7.7 k/uL (3.8-10.6)
[2022-02-03 09:29] LABS: HGB 6.8 gm/dL (11.4-16.0)
[2022-02-03 09:39] LABS: Calcium 8.3 mg/dL (8.4-10.2); Potassium 3.7 mmol/L (3.5-5.1)
[2022-02-03] MEDS: ATORVASTATIN 40 MG TAB PO SCH (09:43)
[2022-02-03] MEDS: METOPROLOL TARTRATE 25 MG TAB PO SCH ×2 (09:43→20:13)
[2022-02-03] MEDS: PANTOPRAZOLE 40 MG TABLET PO SCH ×2 (09:43→20:13)
[2022-02-03] MEDS: FUROSEMIDE 10 MG/ML 4 ML VIAL IV SCH ×2 (09:43→20:13)
[2022-02-03] MEDS: SPIRONOLACTONE 25 MG TAB PO SCH (09:43)
--- NOTE | 2022-02-03 12:08 | CA ---
Transthoracic Echo Report Name: Selena Hinton Age: 76 Gender: F : 1945 Exam Date: 02/02/2022 07:54 Exam Location: [place] [facility] Ht (in): 68 Wt (lb): 140 Ordering Physician: Ziyad Peacock MD Attending/Referring Phys: Filling Carrier Dinorah Cho RDCS Procedure CPT: Indications: Heart failure Cardiac Hx: Technical Quality: Good Contrast 1: N/A Total Dose (mL): Contrast 2: Total Dose (mL): MEASUREMENTS (Male / Female) Normal Values 2D ECHO LV Diastolic Diameter PLAX 3.9 cm 4.2 - 5.9 / 3.9 - 5.3 cm LV Systolic Diameter PLAX 3.8 cm IVS Diastolic Thickness 1.0 cm 0.6 - 1.0 / 0.6 - 0.9 cm LVPW Diastolic Thickness 1.5 cm 0.6 - 1.0 / 0.6 - 0.9 cm LV Relative Wall Thickness 0.6 RV Internal Dim ED PLAX 4.5 cm LA Systolic Diameter LX 4.6 cm 3.0 - 4.0 / 2.7 - 3.8 cm LA Volume 86.0 cm??? 18 - 58 / 22 - 52 cm??? M-MODE Aortic Root Diameter MM 2.5 cm LA Systolic Diameter MM 4.8 cm LA Ao Ratio MM 1.9 MV E Point Septal Separation 0.2 cm AV Cusp Separation MM 1.3 cm DOPPLER TR Peak Velocity 470.4 cm/s TR Peak Gradient 88.5 mmHg Right Ventricular Systolic Press 123.9 mmHg FINDINGS Left Ventricle Normal Left ventricular size, mild wall thickness, left ventricular ejection fraction is estimated at 50 Right Ventricle Severe right ventricular dilatation. Right ventricular systolic pressure estimated at 123.9 mm hg. Right Atrium Moderate right atrial dilatation. Left Atrium Moderately increased left atrial diameter. Severely increased left atrial volume. Mildly increased left atrial area. Mitral Valve Structurally normal mitral valve. [id number] mitral regurgitation. Aortic Valve Trileaflet aortic valve. Tricuspid Valve Structurally normal tricuspid valve. Severe tricuspid regurgitation. Pulmonic Valve Structurally normal pulmonic valve. Mild pulmonic regurgitation. Pericardium Normal pericardium. Aorta Normal size aortic root and proximal ascending aorta. CONCLUSIONS Normal LV systolic function Severe right ventricular dilatation with severe pulmonary hypertension Right ventricular apical hypokinesis Severe tricuspid regurgitation Right atrial enlargement Previewed by: Dr. David Escobedo MD (Electronically Signed) Final Date: 03 February 2022 12:07
--- NOTE | 2022-02-03 12:38 | P.PN ---
Subjective The patient is a 76-year-old female with a known history of mild nonobstructive coronary artery disease, atrial fibrillation on eliquis, pulmonary hypertension, mitral regurgitation, mild CAD and hypertension. She follows we Dr. Goldman. We have been asked to see the patient for elevated troponin. She presents to the hospital with complaints of progressive dyspnea, peripheral edema and was noted to have significant anemia. She was referred to the emergency room and subsequently admitted. She is to receive a total of 3 units of PRBC this admiss ion. She denies any chest discomfort, she has chronic dyspnea on exertion and is on home oxygen. She denies any palpitations. She is feeling somewhat better today. Vital signs are stable. Her hemoglobin is 6.8 today. Labs WBC 7.7, hemoglobin 6.8, MCV 96, platelets 217, sodium 137, potassium 3.7, BUN 71, serum creatinine 1.4 Echocardiogram revealed an EF of 50%, severe right ventricular dilatation with severe pulmonary hypertension, severe tricuspid regurgitation, right ventricular apical hypokinesis. Physical Examination: GENERAL: Well-appearing, well-nourished and in no acute distress. NECK: Supple without JVD or thyromegaly. LUNGS: Breath sounds clear to auscultation bilaterally. Respiration equal and unlabored. No wheezes, rales or rhonchi. HEART: Regular rate and rhythm Systolic murmur at apex, No rubs or gallops. S1 and S2 heard. EXTREMITIES: Normal range of motion,1+ bilateral lower extremity edema. No clubbing or cyanosis. Peripheral pulses intact. ASSESSMENT Acute anemia with heme-positive stool, workup in progress Worsening symptoms of dyspnea with known history of severe pulmonary hypertension and history of lung disease. The patient has a known history of mitral regurgitation as well. Her symptoms have worsened because of the severe anemia Mild troponin elevation secondary to type II event in a patient with mild CAD in the past Long standing persistent atrial ablation was anticoagulated in the past, on hold at this time History of hypertension Worsening renal function secondary to the GI bleeding and anemia Mild CAD by cardiac catheterization in 2019 PLAN Continue holding Eliquis Evaluation of the anemia and GI bleed, plan for EGD and colonoscopy tomorrow Ok from a cardiology perspective to undergo endoscopy Monitor renal function Continue IV Lasix at this time, likely transition to PO tomorrow Continue metoprolol and spironolactone Depending on her progress further recommendations will be made. Nurse practitioner note has been reviewed by physician. Signing provider agrees with the documented findings, assessment, and plan of care. Objective - Vital Signs Vital signs: Vital Signs Temp 97.9 F 02/03/22 08:00 Pulse 77 02/03/22 08:00 Resp 18 02/03/22 08:00 BP 91/51 02/03/22 08:00 Pulse Ox 96 02/03/22 08:00 FiO2 Intake & Output 02/02/22 02/03/22 02/03/22 18:59 06:59 18:59 Intake Total 236 118 Output Total 1200 Balance 236 -1200 118 Intake: Oral 236 118 Output: Urine 1200 Other: Voiding Method External Catheter External Catheter # Voids 1 - Labs CBC & Chem 7: 02/03/22 07:38 02/03/22 07:38 Labs: Abnormal Lab Results - Last 24 Hours (Table) 02/01/22 02/03/22 02/03/22 Range/Units 15:00 07:38 07:38 RBC 2.21 L (3.80-5.40) m/uL Hgb 6.8 L* (11.4-16.0) gm/dL Hct 21.2 L (34.0-46.0) % RDW 19.2 H (11.5-15.5) % Carbon Dioxide 21 L (22-30) mmol/L BUN 71 H (7-17) mg/dL Creatinine 1.46 H (0.52-1.04) mg/dL Calcium 8.3 L (8.4-10.2) mg/dL Crossmatch See Detail
--- NOTE | 2022-02-03 14:13 | CDI ---
Documentation Clarification Form Date: 02/03/2022 01:55:03 PM From: Helen Lam CCS, CCDS Admit Date: 02/01/2022 06:30:00 PM Patient Name: Selena Hinton Visit Number: [id number] Discharge Date: ATTENTION: The Clinical Documentation Specialists (CDI) and [facility] Coding Staff appreciate your assistance in clarifying documentation. Please respond to the clarification below the line at the bottom and electronically sign. The CDI & [facility] Coding staff will review the response and follow-up if needed. Please note: Queries are made part of the Legal Health Record. If you have any questions, please contact the author of this message via ITS. Dr. Hailey Goldman: Heart Failure is documented is documented in the ED Note 02/01: History of Heart Failure on Lasix, recently discharged to home from another hospital with heart failure exacerbation. ED Impression: Heart Failure included. Additional information regarding the Type & Acuity of CHF is requested. History/Risk Factors per the 02/02 H/P: Atrial Fibrillation, GERD, Hyperlipidemia, Hypertension, Osteoarthritis, Mitral Regurgitation, Mild- Moderate Pulmonary Hypertension, Small Hiatal Hernia, Bilateral Leg Edema, Low Back Pain, Osteoarthritis Bilateral Hands. Former smoker. Clinical Indicators: Presented to the ED with SOB, Low Hemoglobin. Admit with concern for acute cardiopulmonary process vs possible bleeding. 02/01 VS: T 97.7, P 66, R 18 - 30 (sob, tachypnea), BP 94/57, PO 100 RA 02/01 LAB: RBC 1.92, Hgb 5.8, Hct 19.0, Lymph 0.8; Na 136, CO2 21, BUN 72, Creatinine 1.52, Glucose 140, Lactic Acid 2.2, Total Bilirubin 2.1, Troponin 0.276, Total Protein 0.2. 02/01 BNP: 4390 02/01 Stool Occult Blood 02/01 CXR: Some pulmonary interstitial fibrosis. Clearing of the diffuse infiltrate in the right lung to a large extent. Stable cardiomegaly. 02/01 EKG: R 98 A fib, Incomplete RBBB. 02/02 ECHO: Normal LV systolic function, EF estimated at 50. Severe right ventricular dilatation with severe pulmonary hypertension. Right ventricular apical hypokinesis. Severe tricuspid regurgitation. Right atrial enlargement. Treatment 02/01: Telemetry, O2 2Lnc, INH Duoneb, INH Ventolin, INH Symbicort, po Lopressor, IV Lasix (not given). 02/02: po Lasix 40 mg Daily, 40 mg q12H. (Home dose: 40 mg Daily) In your professional opinion, can you please clarify the Type & Acuity of CHF if known? [ ] Acute Diastolic Heart Failure [ ] Chronic Diastolic Heart Failure [XXXX ] Acute on Chronic Diastolic Heart Failure [ ] Other, please specify [ ] Unable to determine (Template Last Revised: September 2020) MTDD
--- NOTE | 2022-02-03 14:25 | CDI ---
Documentation Clarification Form Date: 02/03/2022 02:16:00 PM From: Helen Lma CCS, CCDS Admit Date: 02/01/2022 06:30:00 PM Patient Name: Selena Hinton Visit Number: [id number] Discharge Date: ATTENTION: The Clinical Documentation Specialists (CDI) and [facility] Coding Staff appreciate your assistance in clarifying documentation. Please respond to the clarification below the line at the bottom and electronically sign. The CDI & [facility] Coding staff will review the response and follow-up if needed. Please note: Queries are made part of the Legal Health Record. If you have any questions, please contact the author of this message via ITS. Dr. Riki Toth: Acute Anemia without further specificity is documented in the 02/01 ED Note, the 02/03 Cardiology Consult, the 02/02 History & Physical, the 02/02 General Surgery Consult and in a subsequent Progress Note. Additional specificity regarding the Type of Anemia is requested. History/Risk Factors per the 02/02 H/P: Atrial Fibrillation, GERD, Hyperlipidemia, Hypertension, Osteoarthritis, Mitral Regurgitation, Mild- Moderate Pulmonary Hypertension, Small Hiatal Hernia, Bilateral Leg Edema, Low Back Pain, Osteoarthritis Bilateral Hands. Former smoker. Clinical Indicators: Presented to the ED with SOB, Low Hemoglobin. Admit with concern for acute cardiopulmonary process vs possible bleeding. 02/01 VS: T 97.7, P 66, R 18 - 30 (sob, tachypnea), BP 94/57, PO 100 RA 02/01 LAB: RBC 1.92, Lymph 0.8; Na 136, CO2 21, BUN 72, Creatinine 1.52, Glucose 140, Lactic Acid 2.2, Total Bilirubin 2.1, Troponin 0.276, Total Protein 0.2. 02/01 BNP: 4390 02/01 Stool Occult Blood Hemoglobin 02/01: 5.8, 7.2; 02/02: 8.1. 02/03: 6.8 Hematocrit 02/01: 19.0, 22.1. 02/02: 25.0. 02/03: 21.2 02/01 CXR: Some pulmonary interstitial fibrosis. Clearing of the diffuse infiltrate in the right lung to a large extent. Stable cardiomegaly. 02/01 EKG: R 98 A fib, Incomplete RBBB. Treatment 02/01: Telemetry, O2 2Lnc, INH Duoneb, INH Ventolin, INH Symbicort, po Lopressor, IV Lasix (not given). 02/01 Blood Transfusion: 2 units PRBCs. Please clarify the Type of Anemia: [ ] Acute blood loss anemia [ ] Acute on chronic blood loss anemia [ ] Chronic blood loss anemia, please specify cause if know: [ ] Hemolytic anemia [ ] Drug induced anemia [ ] Anemia of Chronic Disease [ ] Unable to determine [ ] Other, please specify (Template Last Revised: September 2020) Acute blood loss anemia MTDD
--- NOTE | 2022-02-03 15:04 | P.PN ---
Subjective Progress Note Date: 02/03/22 CHIEF COMPLAINT: Anemia HISTORY OF PRESENT ILLNESS: Surgical service following regards to patient's anemia. Her hemoglobin is 6.8 this morning. She will receive a unit of blood. Her stool for occult blood is positive. Patient reports that her bowel movements have been dark. she does report some black stools at home. Denies any abdominal pain. Denies any nausea vomiting. Cardiology service is [facility] and she is on IV Lasix. Cardiology has cleared patient to undergo endoscopy. Patient seen and examined with Dr. Cao PHYSICAL EXAM: VITAL SIGNS: Reviewed. GENERAL: Well-developed in no acute distress. HEENT: No sclera icterus. Extraocular movements grossly intact. Moist buccal mucosa. Head is atraumatic, normocephalic. ABDOMEN: Soft. Nondistended. Nontender. NEUROLOGIC: Alert and oriented. Cranial nerves II through XII grossly intact. ASSESSMENT: 1. GI bleed with Normocytic anemia and stool positive for occult blood 2. Shortness of breath 3. History of mild to moderate pulmonary hypertension 4. Atrial fibrillation 5. Elevated troponin followed by cardiology service PLAN: -Patient scheduled for EGD and colonoscopy tomorrow 02/04/[address] cao -Start GoLYTELY prep today -Clear liquid diet today -Nothing by mouth after midnight -1 unit of blood ordered for hemoglobin is 6.8 -Keep Eliquis on hold -Continue PPI -Repeat CBC in a.m. Physician Hand Counter note has been reviewed by physician. Signing provider agrees with the documented findings, assessment, and plan of care. Objective - Vital Signs Vital signs: Vital Signs Temp 97.7 F 02/03/22 13:23 Pulse 71 02/03/22 13:23 Resp 18 02/03/22 13:23 BP 93/57 02/03/22 13:23 Pulse Ox 97 02/03/22 13:23 FiO2 Intake & Output 02/02/22 02/03/22 02/03/22 18:59 06:59 18:59 Intake Total 236 436 Output Total 1200 1000 Balance 236 -1200 -564 Intake: Oral 236 436 Blood Product 0 Rc Cpda-1 Unit 0 [id number] Output: Urine 1200 1000 Other: Voiding Method External Catheter External Catheter # Voids 1 - Labs CBC & Chem 7: 02/03/22 07:38 02/03/22 07:38 Labs: Abnormal Lab Results - Last 24 Hours (Table) 02/01/22 02/03/22 02/03/22 Range/Units 15:00 07:38 07:38 RBC 2.21 L (3.80-5.40) m/uL Hgb 6.8 L* (11.4-16.0) gm/dL Hct 21.2 L (34.0-46.0) % RDW 19.2 H (11.5-15.5) % Carbon Dioxide 21 L (22-30) mmol/L BUN 71 H (7-17) mg/dL Creatinine 1.46 H (0.52-1.04) mg/dL Calcium 8.3 L (8.4-10.2) mg/dL Crossmatch See Detail
[2022-02-03] MEDS ORDERED: HYDROcodone/APAP 5-325MG 1 EACH TAB PO PRN (17:27)
[2022-02-03] MEDS ORDERED: Potassium Replacement Protocol 1 EACH MISC MISCELLANE PRN (17:48)
--- NOTE | 2022-02-03 17:54 | P.PN ---
Subjective Progress Note Date: 02/03/22 H&P Date: 02/02/22 Chief Complaint: Increased weakness, falls, shortness of breath This is a 76-year-old female with past medical history of peptic ulcer disease, diverticulosis ,chronic persistent atrial fibrillation on Eliquis, hypertension, hyperlipidemia, severe pulmonary hypertension, severe tricuspid regurgitation, gastroesophageal reflux disease, chronic respiratory failure, wears 6 L at home, former nicotine dependenceand multiple other medical issues referred to the ER per cardiology. Patient reports she had presented for her cardiology sera ointment, reported increased weakness, falls 3, dizziness. Denies syncope. Denies chest pain, palpitations Eliquis was stopped and she was sent to the ER.Reports stools were dark but did not see blood or clots in either stool or urine. Denies nausea or vomiting. Denies abdominal pain. Hemoglobin on admission 7.2, received 2 unist of packed RBC currently 8.1. Platelets 210. Renal function slowly improving, BUN 70, creatinine 1.48. Lactic acid 2.2 on admission, improved with IV fluid hydration, decreased to 1.7. EKG reportedly atrial fibrillation, incomplete right bundle branch block, Troponin elevated 0.276, proBNP 4390, UA negative, stool for occult blood positive. Currently requiring 5 L nasal cannula O2 to maintain O2 sats in the 90s in a patient who wears 6 L at home. Chest x-ray reporting some pulmonary interstitial fibrosis, present on prior exam, clearing of diffuse infiltrate in the right lung to a large extent compared to prior exam. 02/03/2022 reports another dark bowel movement yesterday. Appetite improving, denies nausea vomiting or diarrhea. Denies abdominal pain. Eliquis remains on hold. Hemoglobin 6.8, one unit of packed RBCs ordered. Scheduled for EGD and colonoscopy tomorrow with general surgery. Diuresing well on Lasix IV push with 24-hour I&O reflecting a negative fluid balance. BUN 71, creatinine 1.46 Blood pressures soft. Maintaining O2 sats in the 90s on 4 L nasal cannula. Objective - Vital Signs Vital signs: Vital Signs Temp 97.9 F 02/03/22 16:46 Pulse 74 02/03/22 16:46 Resp 18 02/03/22 16:46 BP 91/48 02/03/22 16:46 Pulse Ox 100 02/03/22 16:46 FiO2 Intake & Output 02/02/22 02/03/22 02/03/22 18:59 06:59 18:59 Intake Total 236 746 Output Total 1200 1000 Balance 236 -1200 -254 Intake: Oral 236 436 Blood Product 310 Rc Cpda-1 Unit 310 [id number] Output: Urine 1200 1000 Other: Voiding Method External Catheter External Catheter # Voids 1 - Exam - Exam PHYSICAL EXAM: Unchanged. VITAL SIGNS: As above GENERAL: Alert and oriented 3, Sitting up in bed, no acute distress HEENT: Conjunctivae normal. eyes normal. NECK: Supple, + JVD. CARDIOVASCULAR: S1, S2, irregular. Systolic murmur. RESPIRATION: Breath sounds diminished in the bases.CTA. ABDOMEN: Soft, nontender . No guarding. no masses palpable.Bowel sounds heard. LEGS: Positive edema, no clubbing, no cyanosis, +DP NERVOUS SYSTEM: Cranial N 2-12 grossly normal. No focal deficits. Strength and sensation grossly intact. Skin: Warm and dry, no rash - Labs CBC & Chem 7: 02/03/22 07:38 02/03/22 07:38 Labs: Abnormal Lab Results - Last 24 Hours (Table) 02/01/22 02/03/22 02/03/22 Range/Units 15:00 07:38 07:38 RBC 2.21 L (3.80-5.40) m/uL Hgb 6.8 L* (11.4-16.0) gm/dL Hct 21.2 L (34.0-46.0) % RDW 19.2 H (11.5-15.5) % Carbon Dioxide 21 L (22-30) mmol/L BUN 71 H (7-17) mg/dL Creatinine 1.46 H (0.52-1.04) mg/dL Calcium 8.3 L (8.4-10.2) mg/dL Crossmatch See Detail Assessment and Plan Assessment: GI bleed, symptomatic anemia, positive stool- occult blood, normocytic anemia, in a patient who reports her last colonoscopy was 5-6 years ago and reported diverticulosis, status post transfusion of 2 units packed RBCs Troponin elevated, secondary possibly to the above, cardiology following Lactic acidosis, resolved with IV fluid hydration Chronic hypoxic respiratory failure, wears 6 L nasal cannula O2 at home Acute renal failure. History of Covid-19 pneumonia, 06/28 Chronic Pulmonary hypertension, severe Chronic atrial fibrillation,Eliquis on hold Hypertension Severe tricuspid regurgitation Former nicotine dependence Plan: Continue on current medication regime, monitoring and symptomatically treatment. One unit of packed RBCs ordered .Eliquis on hold, with EGD and colonoscopy rescheduled for tomorrow. GoLYTELY prep ordered, diuresing ,blood pressures soft, further recommendations as per cardiology. Close monitoring of hemoglobin, renal function with repeat labs ordered for a.m. Orders Close monitoring of hemoglobin and renal function.Echo pending. Diuretics as per cardiology. Surgery and cardiology consult in place. EGD and colonoscopy pending. PPI for GI prophylaxis. Prognosis guarded given multiple complex medical issues. The impression and plan of care has been dictated as directed. : I performed a history and examination of this patient, discussed the same with the dictator. I agree with the dictator's note ,documented as a scribe. Any additional findings or plans will be noted.
[2022-02-03 21:09] LABS: Anisocytosis Slight; Basophils # (A) 0.1 k/uL (0-0.2); Basophils % (A) 1 %; Eosinophils # (A) 0.1 k/uL (0-0.7); Eosinophils % (A) 1 %; HCT 28.1 % (34.0-46.0); Hypochromasia Moderate; Lymphocytes # (A) 1.3 k/uL (1.0-4.8); Lymphocytes % (A) 13 %; MCH 30.7 pg (25.0-35.0); MCHC 32.5 g/dL (31.0-37.0); MCV 94.5 fL (80.0-100.0); Macrocytosis Slight; Mean Platelet Volume 9.5; Monocytes # (A) 0.5 k/uL (0-1.0); Monocytes % (A) 6 %; Neutrophils # (A) 7.6 k/uL (1.3-7.7); Neutrophils % (A) 78 %; Platelet Count 255 k/uL (150-450); Poikilocytosis Moderate; RBC 2.97 m/uL (3.80-5.40); RDW 18.5 % (11.5-15.5); WBC 9.7 k/uL (3.8-10.6)
[2022-02-03 22:11] LABS: HGB 9.1 gm/dL (11.4-16.0)
[2022-02-04 08:31] LABS: Anisocytosis Slight; HCT 25.1 % (34.0-46.0); HGB 8.3 gm/dL (11.4-16.0); Hypochromasia Moderate; MCH 31.2 pg (25.0-35.0); MCHC 32.9 g/dL (31.0-37.0); MCV 94.8 fL (80.0-100.0); Macrocytosis Slight; Mean Platelet Volume 9.5; Platelet Count 206 k/uL (150-450); Poikilocytosis Slight; RBC 2.65 m/uL (3.80-5.40); RDW 18.2 % (11.5-15.5); WBC 6.8 k/uL (3.8-10.6)
[2022-02-04] MEDS: SYMBICORT 80-4.5 MCG INHALER INHALATION SCH ×2 (08:43→19:09)
[2022-02-04 08:45] LABS: Calcium 8.1 mg/dL (8.4-10.2); Potassium 3.3 mmol/L (3.5-5.1)
--- NOTE | 2022-02-04 08:46 | CDI ---
Documentation Clarification Form Date: 02/04/2022 08:35:03 AM From: Helen Lam CCS, CCDS Admit Date: 02/01/2022 06:30:00 PM Patient Name: Selena Hinton Visit Number: [id number] Discharge Date: ATTENTION: The Clinical Documentation Specialists (CDI) and [facility] Coding Staff appreciate your assistance in clarifying documentation. Please respond to the clarification below the line at the bottom and electronically sign. The CDI & [facility] Coding staff will review the response and follow-up if needed. Please note: Queries are made part of the Legal Health Record. If you have any questions, please contact the author of this message via ITS. Dr. Riki Toth: Chronic Kidney Disease is documented in the 02/01 ED Note in the Clinical Impression. Additional clarification regarding the stage of CKD is requested. History/Risk Factors per the 02/02 H/P: Peptic Ulcer Disease, Diverticulosis, Chronic Persistent Atrial Fibrillation on Eliquis, Hypertension, Hyperlipidemia, Severe Pulmonary Hypertension, Severe Tricuspid Regurgitation, GERD, Chronic Respiratory Failure on 6L at home, Osteoarthritis, Former smoker. Clinical Indicators: Presented to the ED on 02/01 with SOB Low Hemoglobin and weakness, occasional nosebleeds. Recently discharged from another hospital after being treated for heart failure exacerbation. Admit with GI Bleed, Symptomatic Anemia, COPD, Heart Failure and CKD. LAB: 02/01 BUN 72. Creatinine 1.52. GFR 33 02/02 BUN 70, Creatinine 1.48, GFR 34 02/03 BUN 71, Creatinine 1.46, GFR 34 Historical GFR 12/24/2016: 52 Treatment 02/01: Telemetry, O2 2Lnc, INH Duoneb 3 ml BID/prn, INH Ventolin 1 puff q4H/prn, INH Symbicort 2 puff BID, po Lopressor 25 mg BID Please clarify the stage of the CKD, if known: [ ] CKD Stage 3 (GFR 30-59) [ ] CKD Stage 3a (GFR 45-59) [ ] CKD Stage 3b (GFR 30-44) [ ] CKD is ruled out [ ] Other, please specify: [ ] Unable to determine (Template Last revised: September 2020) CKD Stage 3b (GFR 30-44) KRIS
[2022-02-04] MEDS: SPIRONOLACTONE 25 MG TAB PO SCH (09:16)
[2022-02-04] MEDS: PANTOPRAZOLE 40 MG TABLET PO SCH ×2 (09:16→20:49)
[2022-02-04] MEDS: METOPROLOL TARTRATE 25 MG TAB PO SCH ×2 (09:16→20:49)
[2022-02-04] MEDS: ATORVASTATIN 40 MG TAB PO SCH (09:16)
[2022-02-04] MEDS: FUROSEMIDE 10 MG/ML 4 ML VIAL IV SCH (09:17)
[2022-02-04] MEDS ORDERED: Potassium Replacement Protocol 1 EACH MISC MISCELLANE PRN (10:22)
--- NOTE | 2022-02-04 11:09 | P.PN ---
Subjective The patient is a 76-year-old female with a known history of mild nonobstructive coronary artery disease, atrial fibrillation on eliquis, pulmonary hypertension, mitral regurgitation, mild CAD and hypertension. She follows we Dr. Goldman. We have been asked to see the patient for elevated troponin. She presents to the hospital with complaints of progressive dyspnea, peripheral edema and was noted to have significant anemia. She was referred to the emergency room and subsequently admitted. She has received a total of 3 units of PRBC this admissi on. Patient seen and examined at bedside, feeling well. Had increased abdominal cramping overnight secondary to colon prep. She does endorse dark stools overnight. She denies any chest discomfort or shortness of breath. She denies any palpitations. She is feeling somewhat better today. Vital signs are stable. Her hemoglobin is 8.3 today. BUN 54, serum creatinine 1.5. Echocardiogram revealed an EF of 50%, severe right ventricular dilatation with severe pulmonary hypertension, severe tricuspid regurgitation, right ventricular apical hypokinesis. PHYSICAL EXAMINATION: GENERAL: Well-appearing, well-nourished and in no acute distress. NECK: Supple without JVD or thyromegaly. LUNGS: Breath sounds clear to auscultation bilaterally. Respiration equal and unlabored. No wheezes, rales or rhonchi. HEART: Regular rate and rhythm Systolic murmur at apex, No rubs or gallops. S1 and S2 heard. EXTREMITIES: Normal range of motion,1+ bilateral lower extremity edema. No clubbing or cyanosis. Peripheral pulses intact. ASSESSMENT Acute anemia with heme-positive stool, workup in progress Worsening symptoms of dyspnea with known history of severe pulmonary hypertension and history of lung disease. The patient has a known history of mitral regurgitation as well. Her symptoms have worsened because of the severe anemia Mild troponin elevation secondary to type II event in a patient with mild CAD in the past Long standing persistent atrial ablation was anticoagulated in the past, on hold at this time History of hypertension Worsening renal function secondary to the GI bleeding and anemia Mild CAD by cardiac catheterization in 2019 PLAN Continue holding Eliquis Evaluation of the anemia and GI bleed, plan for EGD and colonoscopy today. Ok from a cardiology perspective to undergo endoscopy Monitor renal function Transition to PO Lasix Continue metoprolol and spironolactone Depending on her progress further recommendations will be made. Nurse practitioner note has been reviewed by physician. Signing provider agrees with the documented findings, assessment, and plan of care. Objective - Vital Signs Vital signs: Vital Signs Temp 97.8 F 02/04/22 03:05 Pulse 71 02/04/22 03:05 Resp 20 02/04/22 03:05 BP 105/65 02/04/22 03:05 Pulse Ox 97 02/04/22 03:05 FiO2 Intake & Output 02/03/22 02/04/22 02/04/22 18:59 06:59 18:59 Intake Total 746 Output Total 1000 Balance -254 Intake: Oral 436 Blood Product 310 Rc Cpda-1 Unit 310 [id number] Output: Urine 1000 Other: Voiding Method External Catheter # Voids 2 # Bowel Movements 2 - Labs CBC & Chem 7: 02/04/22 07:54 02/04/22 07:54 Labs: Abnormal Lab Results - Last 24 Hours (Table) 02/01/22 02/03/22 02/04/22 Range/Units 15:00 20:55 07:54 RBC 2.97 L (3.80-5.40) m/uL Hgb 9.1 L D (11.4-16.0) gm/dL Hct 28.1 L (34.0-46.0) % RDW 18.5 H (11.5-15.5) % Potassium 3.3 L (3.5-5.1) mmol/L BUN 54 H (7-17) mg/dL Creatinine 1.50 H (0.52-1.04) mg/dL Glucose 104 H (74-99) mg/dL Calcium 8.1 L (8.4-10.2) mg/dL Crossmatch See Detail 02/04/22 Range/Units 07:54 RBC 2.65 L (3.80-5.40) m/uL Hgb 8.3 L (11.4-16.0) gm/dL Hct 25.1 L (34.0-46.0) % RDW 18.2 H (11.5-15.5) % Potassium (3.5-5.1) mmol/L BUN (7-17) mg/dL Creatinine (0.52-1.04) mg/dL Glucose (74-99) mg/dL Calcium (8.4-10.2) mg/dL Crossmatch
[2022-02-04] MEDS ORDERED: PROPOFOL 10 MG/ML 20 ML VIAL IV ONE (12:00)
[2022-02-04] MEDS ORDERED: PHENYLEPHRINE-0.9% NACL SYG 1,000 MCG/10 ML SYRINGE ONE (12:00)
[2022-02-04] MEDS ORDERED: LACTATED RINGERS 1,000 ML IV ONE (12:02)
--- NOTE | 2022-02-04 12:27 | P.OP ---
Date of Procedure: 02/04/22 Preoperative Diagnosis: GI bleed Postoperative Diagnosis: Antral gastritis Severe diverticulosis Procedure(s) Performed: EGD Colonoscopy Anesthesia: MAC Surgeon: Alberto Spangler Pathology: other (Antrum) Condition: stable Disposition: PACU Description of Procedure: The patient's placed on the endoscopy table in the lateral position. She received IV sedation. The gastroscope placed oropharynx and placed into the esophagus. The scope was then placed and stomach and through the pylorus. The first and second portion of the duodenum appeared normal. Scope was then brought back the antrum this. Mildly inflamed. A biopsies performed. The scope was unretroflexed and remainder the stomach appeared normal. The GE junction was at 440 cms. The distal esophagus appeared normal. Scope summer back and withdrawn for patient. Next digital rectal exam was performed. There were some mild external hemorrhoids. Flexible colonoscope was then placed patient anus into the colon. The scope was passed beyond the sigmoid colon secondary to severe diverticulosis of sigmoid colon. Several times made to maneuver the scope however this impossible. Scope was withdrawn. There was extensive diverticular changes. The scope was then brought back the rectum and this appeared normal. Scope withdrawn for patient. There is no unsteady GI bleed. Presumed patient may have bleeding from hemorrhoids or severe diverticular disease.
[2022-02-04] MEDS: POTASSIUM CHLORIDE ER 20 MEQ TAB.ER PO SCH ×2 (16:55→18:51)
[2022-02-05 08:30] LABS: Anisocytosis Slight; HGB 8.6 gm/dL (11.4-16.0); Hypochromasia Moderate; MCH 30.8 pg (25.0-35.0); MCV 96.1 fL (80.0-100.0); Macrocytosis Slight; Mean Platelet Volume 9.3; Platelet Count 222 k/uL (150-450); Poikilocytosis Slight; RBC 2.81 m/uL (3.80-5.40); RDW 18.5 % (11.5-15.5)
--- NOTE | 2022-02-05 08:31 | P.PN ---
Subjective Progress Note Date: 02/04/22 Pt transfused an additional unit PRBC yesterday, Hgb stable this morning. She is scheduled for EGD and colonoscopy. Denies abdominal pain, chest pain, shortness of breath. Denies dark tarry stools. Objective - Vital Signs Vital signs: Vital Signs Temp 98.1 F 02/05/22 04:00 Pulse 64 02/05/22 04:00 Resp 18 02/05/22 04:00 BP 98/48 02/05/22 04:00 Pulse Ox 97 02/05/22 04:00 FiO2 28 02/04/22 19:09 Intake & Output 02/04/22 02/05/22 02/05/22 18:59 06:59 18:59 Intake Total 900 480 Balance 900 480 Weight 56.8 kg Intake: IV 400 Oral 500 480 Other: Voiding Method Toilet Toilet Bedside Commode Bedside Commode - Exam Gen: well developed, well nourished, NAD CV: RRR, no murmur Lungs: CTAB Abd: soft, nontender, non distended - Labs CBC & Chem 7: 02/04/22 07:54 02/04/22 07:54 Labs: Abnormal Lab Results - Last 24 Hours (Table) 02/04/22 02/04/22 Range/Units 07:54 07:54 RBC 2.65 L (3.80-5.40) m/uL Hgb 8.3 L (11.4-16.0) gm/dL Hct 25.1 L (34.0-46.0) % RDW 18.2 H (11.5-15.5) % Potassium 3.3 L (3.5-5.1) mmol/L BUN 54 H (7-17) mg/dL Creatinine 1.50 H (0.52-1.04) mg/dL Glucose 104 H (74-99) mg/dL Calcium 8.1 L (8.4-10.2) mg/dL Assessment and Plan Plan: Continue with current regimen, IV protonix, EGD and colonoscopy today. Follow Hgb and transfuse if <7
--- NOTE | 2022-02-05 08:33 | P.PN ---
Subjective Progress Note Date: 02/05/22 Pt s/p EGD and colonoscopy that were largely unremarkable and pt suspected to have been experiencing diverticular bleed. No evidence of ongoing bleed. Her Hgb is improved from yesterday and she denies any further dark tarry stools. Objective - Vital Signs Vital signs: Vital Signs Temp 98.1 F 02/05/22 04:00 Pulse 64 02/05/22 04:00 Resp 18 02/05/22 04:00 BP 98/48 02/05/22 04:00 Pulse Ox 97 02/05/22 04:00 FiO2 28 02/04/22 19:09 Intake & Output 02/04/22 02/05/22 02/05/22 18:59 06:59 18:59 Intake Total 900 480 Balance 900 480 Weight 56.8 kg Intake: IV 400 Oral 500 480 Other: Voiding Method Toilet Toilet Bedside Commode Bedside Commode - Exam Gen: well developed, well nourished, NAD CV: RRR, no murmur Lungs: CTAB Abd: soft, nontender, non distended - Labs CBC & Chem 7: 02/05/22 07:46 02/04/22 07:54 Labs: Abnormal Lab Results - Last 24 Hours (Table) 02/04/22 02/04/22 02/05/22 Range/Units 07:54 07:54 07:46 RBC 2.65 L 2.81 L (3.80-5.40) m/uL Hgb 8.3 L 8.6 L (11.4-16.0) gm/dL Hct 25.1 L 27.0 L (34.0-46.0) % RDW 18.2 H 18.5 H (11.5-15.5) % Potassium 3.3 L (3.5-5.1) mmol/L BUN 54 H (7-17) mg/dL Creatinine 1.50 H (0.52-1.04) mg/dL Glucose 104 H (74-99) mg/dL Calcium 8.1 L (8.4-10.2) mg/dL Assessment and Plan Plan: Continue with current regimen, IV protonix, advance to regular diet. Resume eliquis per Cardiology. Continue to monitor Hgb. Discharge planning in progress
[2022-02-05 08:38] LABS: Calcium 8.6 mg/dL (8.4-10.2); Potassium 3.8 mmol/L (3.5-5.1)
[2022-02-05] MEDS: SYMBICORT 80-4.5 MCG INHALER INHALATION SCH ×2 (08:39→20:28)
[2022-02-05 08:52] VITALS: BMI 19.0
[2022-02-05] MEDS ORDERED: LIDOCAINE 1% (10MG/ML) FOR IV START INTRADERMA PRN (08:54)
[2022-02-05] MEDS: FUROSEMIDE 40 MG TAB PO SCH (09:13)
[2022-02-05] MEDS: ATORVASTATIN 40 MG TAB PO SCH (09:13)
[2022-02-05] MEDS: PANTOPRAZOLE 40 MG TABLET PO SCH ×2 (09:14→20:12)
[2022-02-05] MEDS: METOPROLOL TARTRATE 25 MG TAB PO SCH ×2 (09:14→20:13)
[2022-02-05] MEDS: SPIRONOLACTONE 25 MG TAB PO SCH (09:14)
--- NOTE | 2022-02-05 10:36 | P.PN ---
Progress Note - Text Progress Note Date: 02/05/22 Patient [place] stable. Her hemoglobin is 8.6. She still showed no signs of GI bleed. On exam vital signs are stable. Abdomen soft. Patient will will be continued be observed.
--- NOTE | 2022-02-05 11:32 | P.PN ---
Subjective The patient is a 76-year-old female with a known history of mild nonobstructive coronary artery disease, atrial fibrillation on eliquis, pulmonary hypertension, mitral regurgitation, mild CAD and hypertension. She follows we Dr. Goldman. We have been asked to see the patient for elevated troponin. She presents to the hospital with complaints of progressive dyspnea, peripheral edema and was noted to have significant anemia. She was referred to the emergency room and subsequently admitted. She has received a total of 3 units of PRBC this admissi on. Echocardiogram revealed an EF of 50%, severe right ventricular dilatation with severe pulmonary hypertension, severe tricuspid regurgitation, right ventricular apical hypokinesis. 02/05/2022 Patient seen and examined at bedside, feeling well. She denies any chest discom fort or shortness of breath. She denies any palpitations. She underwent EGD and colonoscopy yesterday which did not show evidence of GI bleed for surgery. Patient may have bleeding from hemorrhoids or severe diverticular disease. Vital signs are stable. Patient continues to be in atrial flutter with controlled ventricular rate. PHYSICAL EXAMINATION: GENERAL: Well-appearing, well-nourished and in no acute distress. NECK: Supple without JVD or thyromegaly. LUNGS: Breath sounds clear to auscultation bilaterally. Respiration equal and unlabored. No wheezes, rales or rhonchi. HEART: Regular rate and rhythm Systolic murmur at apex, No rubs or gallops. S1 and S2 heard. EXTREMITIES: Normal range of motion,1+ bilateral lower extremity edema. No clubbing or cyanosis. Peripheral pulses intact. ASSESSMENT Acute anemia with heme-positive stool, workup in progress Worsening symptoms of dyspnea with known history of severe pulmonary hypertension and history of lung disease. The patient has a known history of mitral regurgitation as well. Her symptoms have worsened because of the severe anemia Mild troponin elevation secondary to type II event in a patient with mild CAD in the past Long standing persistent atrial ablation was anticoagulated in the past, on hold at this time History of hypertension Worsening renal function secondary to the GI bleeding and anemia Mild CAD by cardiac catheterization in 2019 PLAN Restart Eliquis 2.5mg BID secondary to renal function Continue metoprolol and spironolactone, PO Lasix Further recommendations based on clinical course On discharge, follow up outpatient with Dr. Goldman Nurse practitioner note has been reviewed by physician. Signing provider agrees with the documented findings, assessment, and plan of care. Objective - Vital Signs Vital signs: Vital Signs Temp 97.4 F L 02/05/22 08:00 Pulse 74 02/05/22 08:00 Resp 20 02/05/22 08:00 BP 86/51 02/05/22 08:00 Pulse Ox 97 02/05/22 08:00 FiO2 28 02/04/22 19:09 Intake & Output 02/04/22 02/05/22 02/05/22 18:59 06:59 18:59 Intake Total 900 480 Balance 900 480 Weight 56.8 kg 56.8 kg Intake: IV 400 Oral 500 480 Other: Voiding Method Toilet Toilet Toilet Bedside Commode Bedside Commode Bedside Commode - Labs CBC & Chem 7: 02/05/22 07:46 02/05/22 07:46 Labs: Abnormal Lab Results - Last 24 Hours (Table) 02/05/22 02/05/22 Range/Units 07:46 07:46 RBC 2.81 L (3.80-5.40) m/uL Hgb 8.6 L (11.4-16.0) gm/dL Hct 27.0 L (34.0-46.0) % RDW 18.5 H (11.5-15.5) % Sodium 136 L (137-145) mmol/L BUN 49 H (7-17) mg/dL Creatinine 1.73 H (0.52-1.04) mg/dL Glucose 130 H (74-99) mg/dL
[2022-02-05] MEDS: OXYMETAZOLINE 0.05% NASL SPRAY 1 SPRAY BOTTLE NASAL PRN ×2 (12:08→20:15)
[2022-02-05] MEDS: APIXABAN 2.5 MG TABLET PO SCH (20:12)
[2022-02-05] MEDS: LACTATED RINGERS 1,000 ML IV SCH (20:19)
[2022-02-05] MEDS ORDERED: APIXABAN 5 MG TAB PO SCH (21:00)
[2022-02-06] MEDS: LACTATED RINGERS 1,000 ML IV SCH ×2 (08:10→20:32)
[2022-02-06] MEDS: METOPROLOL TARTRATE 25 MG TAB PO SCH (08:13)
[2022-02-06] MEDS: FUROSEMIDE 40 MG TAB PO SCH (08:13)
[2022-02-06] MEDS: APIXABAN 2.5 MG TABLET PO SCH ×2 (08:13→20:30)
[2022-02-06] MEDS: PANTOPRAZOLE 40 MG TABLET PO SCH ×2 (08:13→20:30)
[2022-02-06] MEDS: SPIRONOLACTONE 25 MG TAB PO SCH (08:13)
[2022-02-06] MEDS: ATORVASTATIN 40 MG TAB PO SCH (08:13)
--- NOTE | 2022-02-06 08:13 | P.PN ---
Subjective Progress Note Date: 02/06/22 PROGRESS NOTE The patient is a 76-year-old female with known history of chronic persistent atrial fibrillation, history of pulmonary hypertension, tricuspid regurgitation, pulmonary fibrosis who presented was progressive dyspnea and severe anemia. She was transfused and underwent endoscopy and was found to have diverticulosis. She continues to feel dyspneic and fatigue, she denies any chest discomfort, dizziness or palpitations. She is in atrial fibrillation with controlled ventricular response. She has no evidence of gross bleeding. Medications: Lipitor 40 mg daily, Lasix 40 mg daily, metoprolol 25 mg twice a day, spironolactone 25 mg daily, Eliquis 2.5 mg twice a day PHYSICAL EXAMINATION: Blood pressure 100/60 heart rate 60 LUNGS: Decreased air exchange bilaterally HEART: Irregularly irregular, S1-S2 with a holosystolic murmur at the apex 10/11 ABDOMEN: Soft, nontender, no organomegaly EXTREMETIES: +1 LAB: Pending IMPRESSION: 1. [ Severe anemia, post transfusion was possible diverticulosis bleeding] 2. [ Severe pulmonary hypertension and tricuspid regurgitation with right-sided failure] 3. [ Chronic persistent atrial fibrillation] 4. [ Chronic kidney disease 5. Mild CAD by cardiac catheterization] PLAN: 1. [ Follow renal functions] 2. [ Follow hemoglobin] 3. [ Increase physical activity] 4. [ Depending on her progress further recommendations will be made 5. Adjust diuretics depending on her renal functions] Objective - Vital Signs Vital signs: Vital Signs Temp 97.8 F 02/06/22 08:00 Pulse 63 02/06/22 08:00 Resp 20 02/06/22 08:00 BP 100/62 02/06/22 08:00 Pulse Ox 99 02/06/22 08:00 FiO2 28 02/04/22 19:09 Intake & Output 02/05/22 02/06/22 02/06/22 18:59 06:59 18:59 Intake Total 838 10 Balance 838 10 Weight 56.8 kg Intake: IV 10 Invasive Line 3 10 Oral 838 Other: Voiding Method Toilet Toilet Bedside Commode Bedside Commode - Labs CBC & Chem 7: 02/05/22 07:46 02/05/22 07:46 Labs: Abnormal Lab Results - Last 24 Hours (Table) 02/05/22 02/05/22 Range/Units 07:46 07:46 RBC 2.81 L (3.80-5.40) m/uL Hgb 8.6 L (11.4-16.0) gm/dL Hct 27.0 L (34.0-46.0) % RDW 18.5 H (11.5-15.5) % Sodium 136 L (137-145) mmol/L BUN 49 H (7-17) mg/dL Creatinine 1.73 H (0.52-1.04) mg/dL Glucose 130 H (74-99) mg/dL
[2022-02-06 08:21] LABS: Anisocytosis Slight; HCT 26.9 % (34.0-46.0); HGB 8.8 gm/dL (11.4-16.0); Hypochromasia Moderate; MCH 31.7 pg (25.0-35.0); MCHC 32.8 g/dL (31.0-37.0); MCV 96.9 fL (80.0-100.0); Macrocytosis Slight; Mean Platelet Volume 9.2; Platelet Count 220 k/uL (150-450); Poikilocytosis Slight; RBC 2.78 m/uL (3.80-5.40); RDW 17.9 % (11.5-15.5)
[2022-02-06] MEDS: SYMBICORT 80-4.5 MCG INHALER INHALATION SCH ×2 (08:21→19:41)
[2022-02-06 08:24] LABS: Calcium 8.5 mg/dL (8.4-10.2); Potassium 3.9 mmol/L (3.5-5.1)
--- NOTE | 2022-02-06 11:21 | P.PN ---
Progress Note - Text Progress Note Date: 02/06/22 Hemoglobin remained stable at 8.8. Patient shows no evidence of any GI bleed. On exam vital signs are stable. Abdomen soft. Patiently discharged home per medical service when stable.
--- NOTE | 2022-02-06 17:12 | PN ---
PROGRESS NOTE DATE OF SERVICE: 02/06/2022 This 76-year-old woman who was admitted with anemia had extensive evaluation also. Hemoglobin is 8.8. Patient complains of some dizziness. No chest pain. No palpitations. No fever. PHYSICAL EXAMINATION: Pulse is 66, blood pressure 93/52, respiration 20. HEENT: Conjunctivae normal. NECK: No jugular venous distention. CARDIOVASCULAR: S1, S2 muffled. RESPIRATION: Breath sounds diminished at the bases. A few scattered rhonchi. ABDOMEN: Soft. NERVOUS SYSTEM: No focal deficit. LABS: Hemoglobin 8.8. ASSESSMENT: 1. Anemia; may be from diverticular bleed; acute GI blood loss anemia. 2. Hypertension. 3. Renal failure. RECOMMENDATIONS AND DISCUSSION: I recommend to continue current medications, continue with the monitoring, symptomatic treatment. Otherwise I would recommend orthostatic vitals. Closely follow. Further recommendations to follow. MMODL / IJN: [id number] /
[2022-02-06] MEDS: METOPROLOL TARTRATE 12.5 MG TAB PO SCH (20:30)
[2022-02-07] MEDS: SYMBICORT 80-4.5 MCG INHALER INHALATION SCH ×2 (08:10→18:51)
[2022-02-07 08:45] LABS: Anisocytosis Slight; Basophils # (A) 0.1 k/uL (0-0.2); Basophils % (A) 1 %; Eosinophils # (A) 0.1 k/uL (0-0.7); Eosinophils % (A) 2 %; HCT 25.8 % (34.0-46.0); HGB 8.1 gm/dL (11.4-16.0); Hypochromasia Marked; Lymphocytes # (A) 1.1 k/uL (1.0-4.8); Lymphocytes % (A) 14 %; MCH 30.5 pg (25.0-35.0); MCHC 31.5 g/dL (31.0-37.0); MCV 96.8 fL (80.0-100.0); Macrocytosis Slight; Mean Platelet Volume 9.3; Monocytes # (A) 0.4 k/uL (0-1.0); Monocytes % (A) 5 %; Neutrophils # (A) 5.8 k/uL (1.3-7.7); Neutrophils % (A) 77 %; Platelet Count 215 k/uL (150-450); Poikilocytosis Slight; RBC 2.66 m/uL (3.80-5.40); RDW 17.9 % (11.5-15.5); WBC 7.6 k/uL (3.8-10.6)
[2022-02-07 08:56] LABS: Albumin 3.2 g/dL (3.5-5.0); Calcium 8.2 mg/dL (8.4-10.2); Potassium 3.8 mmol/L (3.5-5.1); Total Bilirubin 1.6 mg/dL (0.2-1.3); Total Protein 5.5 g/dL (6.3-8.2)
[2022-02-07] MEDS: METOPROLOL TARTRATE 12.5 MG TAB PO SCH ×2 (09:17→20:09)
[2022-02-07] MEDS: ATORVASTATIN 40 MG TAB PO SCH (09:17)
[2022-02-07] MEDS: APIXABAN 2.5 MG TABLET PO SCH ×2 (09:17→20:09)
[2022-02-07] MEDS: PANTOPRAZOLE 40 MG TABLET PO SCH ×2 (09:17→20:09)
[2022-02-07] MEDS: FUROSEMIDE 40 MG TAB PO SCH (09:17)
[2022-02-07] MEDS: SPIRONOLACTONE 25 MG TAB PO SCH (09:17)
--- NOTE | 2022-02-07 09:55 | P.PN ---
Progress Note - Text Progress Note Date: 02/07/22 Patient remains stable. There is no evidence of GI bleed. Removal was a 0.1. On exam vital signs are stable. Abdomen soft. Patient will be discharged home when cleared by medicine and cardiology.
--- NOTE | 2022-02-07 13:40 | P.PN ---
Subjective Progress Note Date: 02/07/22 PROGRESS NOTE The patient is a 76-year-old female with known history of chronic persistent atrial fibrillation, history of pulmonary hypertension, tricuspid regurgitation, pulmonary fibrosis who presented was progressive dyspnea and severe anemia. She was transfused and underwent endoscopy and was found to have diverticulosis. She continues to feel dyspneic and fatigue, she denies any chest discomfort, dizziness or palpitations. She is in atrial fibrillation with controlled ventricular response. She has no evidence of gross bleeding. February 07: She feels better today, her breathing is better and her edema improved. She denies any dizziness or palpitation. She denies any nausea or vomiting. She has no cough or fever. She continues to be on oxygen. She is back on her anticoagulation. Her last hemoglobin is 8.1. Medications: Lipitor 40 mg daily, Lasix 40 mg daily, metoprolol 12.5 mg twice a day, spironolactone 25 mg daily, Eliquis 2.5 mg twice a day PHYSICAL EXAMINATION: Blood pressure 94/60 heart rate 60 LUNGS: Decreased air exchange bilaterally HEART: Irregularly irregular, S1-S2 with a holosystolic murmur at the apex 10/11 ABDOMEN: Soft, nontender, no organomegaly EXTREMETIES: Trace to +1 LAB: Pending IMPRESSION: 1. Severe anemia, post transfusion with possible diverticulosis bleeding 2. Severe pulmonary hypertension and tricuspid regurgitation with right-sided failure 3. Chronic persistent atrial fibrillation 4. Chronic kidney disease 5. Mild CAD by cardiac catheterization PLAN: 1. Follow renal functions 2. Follow hemoglobin 3. Increase physical activity 4. [ Depending on her progress further recommendations will be made 5. Prognosis is guarded Objective - Vital Signs Vital signs: Vital Signs Temp 97.5 F L 02/07/22 11:43 Pulse 68 02/07/22 11:43 Resp 18 02/07/22 11:43 BP 94/57 02/07/22 11:43 Pulse Ox 99 02/07/22 11:43 FiO2 28 02/04/22 19:09 Intake & Output 02/06/22 02/07/22 02/07/22 18:59 06:59 18:59 Intake Total 240 Balance 240 Weight 58.4 kg Intake: Oral 240 Other: Voiding Method Toilet Toilet Bedside Commode Bedside Commode - Labs CBC & Chem 7: 02/07/22 08:12 02/07/22 08:12 Labs: Abnormal Lab Results - Last 24 Hours (Table) 02/07/22 02/07/22 Range/Units 08:12 08:12 RBC 2.66 L (3.80-5.40) m/uL Hgb 8.1 L (11.4-16.0) gm/dL Hct 25.8 L (34.0-46.0) % RDW 17.9 H (11.5-15.5) % Sodium 133 L (137-145) mmol/L BUN 49 H (7-17) mg/dL Creatinine 1.71 H (0.52-1.04) mg/dL Glucose 158 H (74-99) mg/dL Calcium 8.2 L (8.4-10.2) mg/dL Total Bilirubin 1.6 H (0.2-1.3) mg/dL Total Protein 5.5 L (6.3-8.2) g/dL Albumin 3.2 L (3.5-5.0) g/dL
--- NOTE | 2022-02-07 16:54 | P.PN ---
Subjective Progress Note Date: 02/07/22 This is a 76 year old female who was recently admitted with GI bleed and anemia. Patient is being closely monitored and followed by cardiology as well for CHF. Patient has elevated creatinine and maintained on oral lasix. Patient continues with weakness and dyspnea on exertion. Patient denies any chest pain or lightheadedness. Patient reports some occasional dizziness. Recommend q shift orthostatics. Review of systems: Constitutional: No reports of fatigue, fever, or chills Cardiovascular: No reports of chest pain or palpitations, reports some dizziness when up and walking Respiratory: reports of shortness of breath with exertion. GI: No reports of nausea, no reports of of vomiting, no reports of diarrhea : No reports of dysuria or retention Neurovascular: reports of generalized weakness All medications have been reviewed Active Medications Hydrocodone Bitart/Acetaminophen (Hydrocodone/Apap 5-325mg 1 Each Tab) 1 each PO Q6HR PRN PRN Reason: Pain Last Admin: 02/03/22 17:39 Dose: 1 each Albuterol Sulfate (Albuterol Hfa Inhaler) 1 puff INHALATION RT-Q4H PRN PRN Reason: Shortness Of Breath Albuterol/Ipratropium (Ipratropium-Albuterol 3 Ml Neb) 3 ml INHALATION RT-BID PRN PRN Reason: Shortness Of Breath Last Admin: 02/02/22 08:49 Dose: 3 ml Apixaban (Apixaban 2.5 Mg Tablet) 2.5 mg PO BID [facility]; Protocol Last Admin: 02/07/22 09:17 Dose: 2.5 mg Atorvastatin Calcium (Atorvastatin 40 Mg Tab) 40 mg PO DAILY [facility] Last Admin: 02/07/22 09:17 Dose: 40 mg Budesonide/Formoterol Fumarate (Symbicort 80-4.5 Mcg Inhaler) 2 puff INHALATION RT-BID [facility] Last Admin: 02/07/22 08:10 Dose: 2 puff Furosemide (Furosemide 40 Mg Tab) 40 mg PO DAILY [facility] Last Admin: 02/07/22 09:17 Dose: 40 mg Lactated Ringer's (Lactated Ringers) 1,000 mls @ 20 mls/hr IV .Q24H [facility] Last Admin: 02/06/22 20:32 Dose: 20 mls/hr Lidocaine HCl (Lidocaine 1% (10mg/Ml) For Iv Start) 0.1 ml INTRADERMA PER PROTOCOL PRN PRN Reason: IV Start Metoprolol Tartrate (Metoprolol Tartrate 12.5 Mg Tab) 12.5 mg PO BID [facility] Last Admin: 02/07/22 09:17 Dose: 12.5 mg Miscellaneous Information (Potassium Replacement Protocol 1 Each Misc) 1 each MISCELLANE DAILY PRN; Protocol PRN Reason: Per Protocol Miscellaneous Information (Potassium Replacement Protocol 1 Each Misc) 1 each MISCELLANE DAILY PRN; Protocol PRN Reason: Per Protocol Naloxone HCl (Naloxone 0.4 Mg/Ml 1 Ml Vial) 0.2 mg IV Q2M PRN PRN Reason: Opioid Reversal Oxymetazoline HCl (Oxymetazoline 0.05% Nasl [place] 1 [place] Bottle) 2 spray NASAL BID PRN PRN Reason: Dry Nasal Passages Last Admin: 02/05/22 20:15 Dose: 2 spray Pantoprazole Sodium (Pantoprazole 40 Mg Tablet) 40 mg PO BID [facility] Last Admin: 02/07/22 09:17 Dose: 40 mg Spironolactone (Spironolactone 25 Mg Tab) 25 mg PO DAILY [facility] Last Admin: 02/07/22 09:17 Dose: 25 mg PHYSICAL EXAMINATION: GENERAL: The patient is alert and oriented x4, Thin built, frail, elderly looking women HEENT: Pupils are round and equally reacting to light. EOMI. no scleral icterus. No conjunctival pallor. Normocephalic, atraumatic. No pharyngeal erythema. No thyromegaly. CARDIOVASCULAR: S1 and S2 muffled PULMONARY: diminished breath sounds bilaterally with some scattered rhonchi noted. ABDOMEN: soft. non tender on exam. non-distended, normal bowel sounds. No palpable organomegaly. MUSCULOSKELETAL: No joint swelling or deformity. EXTREMITIES: No cyanosis, clubbing, or pedal edema. NEUROLOGICAL: Gross neurological examination did not reveal any focal deficits. diffuse weakness SKIN: No rashes. Assessment: Anemia, may be from diverticular bleed, acute GI blood loss anemia Hypertension, currently hypotensive Renal failure Multiple medical issues GI prophylaxis DVT prophylaxis Full code Plan: Recommend to continue with current medications and management general surgery and cardiology following. Patient blood pressures are soft and continues with some dizziness with ambulation. Patient is maintained on oral lasix and kidney functions elevated. Recommend daily orthostatics and closely monitor labs and vital signs. No acute bleeding noted and will repeat am labs. Due to multiple complex medical issues, prognosis is guarded. The impression and plan of care has been dictated by Nathalie Bear, nurse practitioner as directed. MD Nataliya I have performed a history and examination and MDM of this patient, discussed the same with the dictator, and agree with the dictator's assessment and plan as written ,documented as a scribe. Based on total visit time, I have performed more than 50% of the visit. Any additional findings or plans will be noted. Objective - Vital Signs Vital signs: Vital Signs Temp 97.5 F L 02/07/22 11:43 Pulse 68 02/07/22 11:43 Resp 18 02/07/22 11:43 BP 94/57 02/07/22 11:43 Pulse Ox 99 02/07/22 11:43 FiO2 28 02/04/22 19:09 Intake & Output 02/06/22 02/07/22 02/07/22 18:59 06:59 18:59 Intake Total 240 Balance 240 Weight 58.4 kg Intake: Oral 240 Other: Voiding Method Toilet Toilet Bedside Commode Bedside Commode - Labs CBC & Chem 7: 02/07/22 08:12 02/07/22 08:12 Labs: Abnormal Lab Results - Last 24 Hours (Table) 02/07/22 02/07/22 Range/Units 08:12 08:12 RBC 2.66 L (3.80-5.40) m/uL Hgb 8.1 L (11.4-16.0) gm/dL Hct 25.8 L (34.0-46.0) % RDW 17.9 H (11.5-15.5) % Sodium 133 L (137-145) mmol/L BUN 49 H (7-17) mg/dL Creatinine 1.71 H (0.52-1.04) mg/dL Glucose 158 H (74-99) mg/dL Calcium 8.2 L (8.4-10.2) mg/dL Total Bilirubin 1.6 H (0.2-1.3) mg/dL Total Protein 5.5 L (6.3-8.2) g/dL Albumin 3.2 L (3.5-5.0) g/dL
[2022-02-07] MEDS: LACTATED RINGERS 1,000 ML IV SCH (20:09)
[2022-02-08] MEDS: SYMBICORT 80-4.5 MCG INHALER INHALATION SCH ×2 (07:53→20:04)
[2022-02-08 08:10] LABS: Calcium 8.7 mg/dL (8.4-10.2)
[2022-02-08] MEDS: FUROSEMIDE 40 MG TAB PO SCH (08:12)
[2022-02-08] MEDS: ATORVASTATIN 40 MG TAB PO SCH (08:12)
[2022-02-08] MEDS: SPIRONOLACTONE 25 MG TAB PO SCH (08:12)
[2022-02-08] MEDS: METOPROLOL TARTRATE 12.5 MG TAB PO SCH ×2 (08:12→20:20)
[2022-02-08] MEDS: APIXABAN 2.5 MG TABLET PO SCH ×2 (08:12→20:20)
[2022-02-08] MEDS: PANTOPRAZOLE 40 MG TABLET PO SCH ×2 (08:12→20:20)
--- NOTE | 2022-02-08 08:48 | P.PN ---
Subjective The patient is a 76-year-old female with a known history of mild nonobstructive coronary artery disease, atrial fibrillation on eliquis, pulmonary hypertension, mitral regurgitation, mild CAD and hypertension. She follows we Dr. Goldman. We have been asked to see the patient for elevated troponin. She presents to the hospital with complaints of progressive dyspnea, peripheral edema and was noted to have significant anemia. She was referred to the emergency room and subsequently admitted. She has received a total of 3 units of PRBC this admissi on. Echocardiogram revealed an EF of 50%, severe right ventricular dilatation with severe pulmonary hypertension, severe tricuspid regurgitation, right ventricular apical hypokinesis. 02/05/2022- She underwent EGD and colonoscopy yesterday which did not show evidence of GI bleed for surgery. Patient may have bleeding from hemorrhoids or severe diverticular disease. 02/08/2022 Patient seen and examined at bedside, feeling well. She denies any chest discomfort or shortness of breath. She denies any palpitations. Denies any bleeding or dark stools. Vital signs are stable. Patient continues to be in atrial fib with controlled ventricular rate. PHYSICAL EXAMINATION: GENERAL: Well-appearing, well-nourished and in no acute distress. NECK: Supple without JVD or thyromegaly. LUNGS: Breath sounds clear to auscultation bilaterally. Respiration equal and unlabored. No wheezes, rales or rhonchi. HEART: Regular rate and rhythm Systolic murmur at apex, No rubs or gallops. S1 and S2 heard. EXTREMITIES: Normal range of motion,1+ bilateral lower extremity edema. No clubbing or cyanosis. Peripheral pulses intact. ASSESSMENT Severe anemia, post transfusion with possible diverticulosis bleeding Severe pulmonary hypertension and tricuspid regurgitation with right-sided failure Worsening symptoms of dyspnea with known history of severe pulmonary hypertension and history of lung disease. The patient has a known history of mitral regurgitation as well. Her symptoms have worsened because of the severe anemia Mild troponin elevation secondary to type II event in a patient with mild CAD in the past Long standing persistent atrial ablation was anticoagulated in the past, on hold at this time History of hypertension Worsening renal function secondary to the GI bleeding and anemia Mild CAD by cardiac catheterization in 2019 PLAN Continue Eliquis 2.5mg BID Continue current medical therapy Follow renal functions, Follow hemoglobin Increase physical activity as tolerated No further changes from a cardiology perspective. Follow up outpatient with Dr. Goldman Nurse practitioner note has been reviewed by physician. Signing provider agrees with the documented findings, assessment, and plan of care. Objective - Vital Signs Vital signs: Vital Signs Temp 97.6 F 02/07/22 16:00 Pulse 68 02/07/22 11:43 Resp 18 02/07/22 11:43 BP 90/56 02/07/22 16:00 Pulse Ox 99 02/07/22 11:43 FiO2 28 02/04/22 19:09 Intake & Output 02/06/22 02/07/22 02/07/22 18:59 06:59 18:59 Intake Total 240 Balance 240 Weight 58.4 kg Intake: Oral 240 Other: Voiding Method Toilet Toilet Bedside Commode Bedside Commode - Labs CBC & Chem 7: 02/07/22 08:12 02/08/22 07:30 Labs: Abnormal Lab Results - Last 24 Hours (Table) 02/07/22 02/07/22 Range/Units 08:12 08:12 RBC 2.66 L (3.80-5.40) m/uL Hgb 8.1 L (11.4-16.0) gm/dL Hct 25.8 L (34.0-46.0) % RDW 17.9 H (11.5-15.5) % Sodium 133 L (137-145) mmol/L BUN 49 H (7-17) mg/dL Creatinine 1.71 H (0.52-1.04) mg/dL Glucose 158 H (74-99) mg/dL Calcium 8.2 L (8.4-10.2) mg/dL Total Bilirubin 1.6 H (0.2-1.3) mg/dL Total Protein 5.5 L (6.3-8.2) g/dL Albumin 3.2 L (3.5-5.0) g/dL
--- NOTE | 2022-02-08 12:28 | P.PN ---
Subjective Progress Note Date: 02/08/22 This is a 76 year old female who was recently admitted with GI bleed and anemia. Patient is being closely monitored and followed by cardiology as well for CHF. Patient has elevated creatinine and maintained on oral lasix. Patient continues with weakness and dyspnea on exertion. Patient denies any chest pain or lightheadedness. Patient reports some occasional dizziness. Recommend q shift orthostatics. 02/08/2022 Patient is seen today and blood pressures marginal with 90's systolic. Cardiology following and recommending continuing current management and close outpatient follow up. Creatinine trending down and maintained on oral lasix. Potassium i s4 today. Encouraged increased activity as tolerated with assistance and avoid orthostatic hypotension. Patient is afebrile and will also continue with breathing inhalational treatments and scheduled inhalers. Possible discharge in 24 hours. Review of systems: Constitutional: No reports of fatigue, fever, or chills Cardiovascular: No reports of chest pain or palpitations, reports some dizziness when up and walking Respiratory: reports of shortness of breath with exertion. GI: No reports of nausea, no reports of of vomiting, no reports of diarrhea : No reports of dysuria or retention Neurovascular: reports of generalized weakness All medications have been reviewed Active Medications Hydrocodone Bitart/Acetaminophen (Hydrocodone/Apap 5-325mg 1 Each Tab) 1 each PO Q6HR PRN PRN Reason: Pain Last Admin: 02/03/22 17:39 Dose: 1 each Albuterol Sulfate (Albuterol Hfa Inhaler) 1 puff INHALATION RT-Q4H PRN PRN Reason: Shortness Of Breath Albuterol/Ipratropium (Ipratropium-Albuterol 3 Ml Neb) 3 ml INHALATION RT-BID PRN PRN Reason: Shortness Of Breath Last Admin: 02/02/22 08:49 Dose: 3 ml Apixaban (Apixaban 2.5 Mg Tablet) 2.5 mg PO BID [facility]; Protocol Last Admin: 02/08/22 08:12 Dose: 2.5 mg Atorvastatin Calcium (Atorvastatin 40 Mg Tab) 40 mg PO DAILY [facility] Last Admin: 02/08/22 08:12 Dose: 40 mg Budesonide/Formoterol Fumarate (Symbicort 80-4.5 Mcg Inhaler) 2 puff INHALATION RT-BID [facility] Last Admin: 02/08/22 07:53 Dose: 2 puff Furosemide (Furosemide 40 Mg Tab) 40 mg PO DAILY [facility] Last Admin: 02/08/22 08:12 Dose: 40 mg Lactated Ringer's (Lactated Ringers) 1,000 mls @ 20 mls/hr IV .Q24H [facility] Last Admin: 02/07/22 20:09 Dose: 20 mls/hr Lidocaine HCl (Lidocaine 1% (10mg/Ml) For Iv Start) 0.1 ml INTRADERMA PER PROTOCOL PRN PRN Reason: IV Start Metoprolol Tartrate (Metoprolol Tartrate 12.5 Mg Tab) 12.5 mg PO BID [facility] Last Admin: 02/08/22 08:12 Dose: 12.5 mg Miscellaneous Information (Potassium Replacement Protocol 1 Each Misc) 1 each MISCELLANE DAILY PRN; Protocol PRN Reason: Per Protocol Miscellaneous Information (Potassium Replacement Protocol 1 Each Misc) 1 each MISCELLANE DAILY PRN; Protocol PRN Reason: Per Protocol Naloxone HCl (Naloxone 0.4 Mg/Ml 1 Ml Vial) 0.2 mg IV Q2M PRN PRN Reason: Opioid Reversal Oxymetazoline HCl (Oxymetazoline 0.05% Nasl [place] 1 [place] Bottle) 2 spray NASAL BID PRN PRN Reason: Dry Nasal Passages Last Admin: 02/05/22 20:15 Dose: 2 spray Pantoprazole Sodium (Pantoprazole 40 Mg Tablet) 40 mg PO BID [facility] Last Admin: 02/08/22 08:12 Dose: 40 mg Spironolactone (Spironolactone 25 Mg Tab) 25 mg PO DAILY [facility] Last Admin: 02/08/22 08:12 Dose: 25 mg PHYSICAL EXAMINATION: GENERAL: The patient is alert and oriented x4, Thin built, frail, elderly looking women HEENT: Pupils are round and equally reacting to light. EOMI. no scleral icterus. No conjunctival pallor. Normocephalic, atraumatic. No pharyngeal erythema. No thyromegaly. CARDIOVASCULAR: S1 and S2 muffled PULMONARY: diminished breath sounds bilaterally with some scattered rhonchi noted. ABDOMEN: soft. non tender on exam. non-distended, normal bowel sounds. No palpable organomegaly. MUSCULOSKELETAL: No joint swelling or deformity. EXTREMITIES: No cyanosis, clubbing, or pedal edema. NEUROLOGICAL: Gross neurological examination did not reveal any focal deficits. diffuse weakness SKIN: No rashes. Assessment: Anemia, may be from diverticular bleed, acute GI blood loss anemia Hypertension, currently hypotensive Renal failure Multiple medical issues GI prophylaxis DVT prophylaxis Full code Plan: Recommend to continue with current medications and management with general surgery and cardiology following. Patient blood pressures are soft and continues with some dizziness with ambulation. Feeling slightly improved. Patient is maintained on oral lasix and kidney functions trending down. Cardiology recommends current medications and outpatient follow up. Recommend daily orthostatics and closely monitor labs and vital signs. No acute bleeding noted and will repeat am labs. Due to multiple complex medical issues, prognosis is guarded. Possible discharge in 24 hours. The impression and plan of care has been dictated as a scribe by Nathalie Bear, nurse practitioner as directed. MD Nataliya I have performed a history and examination and MDM of this patient, discussed the same with the dictator, and has been documented as a scribe. Based on total visit time, I have performed more than 50% of the visit. Any additional findings or plans will be noted. Objective - Vital Signs Vital signs: Vital Signs Temp 97.8 F 02/08/22 08:00 Pulse 74 02/08/22 08:00 Resp 18 02/08/22 08:00 BP 93/58 02/08/22 08:00 Pulse Ox 100 02/08/22 08:00 FiO2 28 02/04/22 19:09 Intake & Output 02/07/22 02/08/22 02/08/22 18:59 06:59 18:59 Intake Total 480 360 Balance 480 360 Weight 59.4 kg Intake: Oral 480 360 Other: Voiding Method Toilet Toilet - Labs CBC & Chem 7: 02/07/22 08:12 02/08/22 07:30 Labs: Abnormal Lab Results - Last 24 Hours (Table) 02/08/22 Range/Units 07:30 Sodium 135 L (137-145) mmol/L BUN 50 H (7-17) mg/dL Creatinine 1.64 H (0.52-1.04) mg/dL
--- NOTE | 2022-02-08 13:33 | P.CNPUL ---
History of Present Illness Consult date: 02/08/22 Reason for consult: dyspnea History of present illness: This is a 76-year-old female with past medical history of peptic ulcer disease, diverticulosis ,chronic persistent atrial fibrillation on Eliquis, hypertension, hyperlipidemia, severe pulmonary hypertension, severe tricuspid regurgitation, gastroesophageal reflux disease, chronic respiratory failure, wears 6 L at home, former nicotine dependenceand multiple other medical issues referred to the ER per cardiology. Patient reports she had presented for her cardiology appointment, reported increased weakness, falls 3, dizziness. The patient was admitted to the hospital on 02/01/2022. I was asked to evaluate this patient by Dr. Goldman regarding her chronic pulmonary hypertension. Note that the patient has severe pulmonary hypertension. The patient is an ex-smoker and she has hi story of COPD. She has seen a twisthand, Dr. Durand, and the patient has been told not to have any significant lung disease. Nevertheless, the CAT scan of the chest that was done on previous hospitalizations, there is some obvious emphysematous changes bilaterally. At the same time, the patient was treated for: COVID 19 related infection/pneumonia back in June 2022 and she recovered without any major issues. She has been placed on oxygen approximately 2 years ago. No history of any chronic renal thrombolytic disease. No previous history of DVT or pulmonary embolism. No supportive fibrosis. Nausea or any intake of medication contributing to pulmonary hypertension. No chronic liver disease. On her chest x-ray, the patient has cardiomegaly and small effusion the lung bases bilaterally. Noted during this current admission, the patient came in to the hospital because of a significant drop in hemoglobin. Note that the patient has a normal hemoglobin of 12.5 back in June 2021. Hemoglobin dropped as low as 6.8. Occult stool was positive and the patient got transfused and the patient is feeling better while hemoglobin is up to 8.1. EGD and colonoscopy was done that showed antral gastritis and diverticulosis. No significant edema in lower extremity bilaterally.. Echocardiogram showed RV enlargement, severe TR, normal LV, Review of Systems Constitutional: Reports fatigue, Reports weakness Eyes: bilateral tunnel vision/blind spots, denies as per HPI, denies blurred vision, denies bulging eye, denies decreased vision, denies diplopia, denies discharge, denies dry eye, denies irritation, denies itching, denies pain, denies photophobia, denies loss of peripheral vision, denies loss of vision Ears, nose, mouth and throat: Reports as per HPI Breasts: absent: as per HPI, change in shape, gynecomastia, masses, nipple discharge, pain, skin changes, swelling Cardiovascular: Reports decreased exercise tolerance, Reports dyspnea on exertion Respiratory: Reports dyspnea Gastrointestinal: Reports as per HPI (Occult stool was positive for blood although the patient denied having any active GI bleeding) Genitourinary: Reports as per HPI Musculoskeletal: Reports as per HPI, Reports fractures Musculoskeletal: absent: ankle pain, ankle stiffness, ankle swelling Integumentary: Reports as per HPI Neurological: Reports as per HPI Psychiatric: Reports as per HPI Endocrine: Reports as per HPI Hematologic/Lymphatic: Reports as per HPI Allergic/Immunologic: Reports as per HPI Past Medical History Past Medical History: Atrial Fibrillation, GERD/Reflux, Hyperlipidemia, Hypertension, Osteoarthritis (OA) Additional Past Medical History / Comment(s): Mitral regurgitation, mild to mod erate pulmonary HTN-per past medical hx/pt unaware, SOB with exertion, small hiatal hernia, current bilateral lower leg edema, occasional low back pain, arthritis bilateral hands. 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 Past Anesthesia/Blood Transfusion Reactions: No Reported Reaction Additional Past Anesthesia/Blood Transfusion Reaction / Comment(s): no hx blood transfusion Past Psychological History: No Psychological Hx Reported Additional Psychological History / Comment(s): Pt resides with her spouse. She is independent. Smoking Status: Former smoker Past Alcohol Use History: None Reported Additional Past Alcohol Use History / Comment(s): Pt started smoking in 1959 and quit in 1977. She was a 2ppd smoker. Past Drug Use History: None Reported - Past Family History Mother Family Medical History: Cancer Additional Family Medical History / Comment(s): bowel Father Family Medical History: COPD Additional Family Medical History / Comment(s): emphysema Brother(s) Family Medical History: Cancer Additional Family Medical History / Comment(s): Bowel cancer. Medications and Allergies Home Medications Medication Instructions Recorded Confirmed Type Metoprolol Tartrate [Lopressor] 25 mg PO BID 06/29/19 02/01/22 History Acetaminophen [Tylenol] 325 mg PO TID PRN 06/26/21 02/01/22 History Fluticasone Propion/Salmeterol 1 puff INHALATION RT-BID 06/26/21 02/01/22 History [Fluticasone-Salmeterol 250-50] Ipratropium-Albuterol Nebulize 3 ml INHALATION RT-BID PRN 06/26/21 02/01/22 History [Duoneb 0.5 mg-3 mg/3 ml Soln] Albuterol Sulfate [Ventolin HFA] 1 puff INHALATION RT-Q4H PRN 02/01/22 02/01/22 History Atorvastatin [Lipitor] 40 mg PO DAILY 02/01/22 02/01/22 History Furosemide [Lasix] 40 mg PO DAILY 02/01/22 02/01/22 History Potassium Chloride ER [K-Dur 10] 10 meq PO DAILY 02/01/22 02/01/22 History Spironolactone 25 mg PO DAILY 02/01/22 02/01/22 History Apixaban [Eliquis] 2.5 mg PO BID 30 Days #60 tab 02/06/22 Rx Pantoprazole [Protonix] 40 mg PO DAILY 30 Days #30 tab 02/06/22 Rx Allergies Allergy/AdvReac Type Severity Reaction Status Date / Time No Known Allergies Allergy Verified 02/01/22 18:13 Physical Exam Vitals: Vital Signs Temp Pulse Resp BP BP BP BP 02/08/22 11:21 74 18 02/08/22 08:00 97.8 F 74 18 93/58 02/08/22 07:49 65 18 02/08/22 04:00 65 18 98/60 02/08/22 00:00 65 18 98/64 02/07/22 20:00 97.9 F 78 18 97/60 02/07/22 16:00 97.6 F 94/58 103/66 90/56 02/07/22 11:43 97.5 F L 68 18 94/57 Pulse Ox 02/08/22 11:21 02/08/22 08:00 100 02/08/22 07:49 02/08/22 04:00 100 02/08/22 00:00 100 02/07/22 20:00 97 02/07/22 16:00 02/07/22 11:43 99 Intake and Output 02/07/22 02/08/22 02/08/22 22:59 06:59 14:59 Intake Total 240 360 Balance 240 360 Intake: Oral 240 360 Other: Voiding Method Toilet Toilet Weight 59.4 kg No acute distress, oriented 3. No respiratory distress. No conversational dyspnea or use of accessory muscles. The patient remains on 6 L nasal cannula. Saturations are 92 %. Head exam was generally normal. There was no scleral icterus or corneal arcus. Mucous membranes were moist. HEENT examination is grossly unremarkable. Neck supple. Full range of motion. No adenopathy thyromegaly or neck vein distention. Cardiovascular examination reveals irregular rhythm rate. Irregular S1 and S2 c onsistent with atrial fibrillation. There is accentuation of the second heart sounds secondary to pulmonary hypertension the patient has a grade 3-4 systolic ejection murmur heard over the left lateral sternal border. There is also some right ventricular heave. Lungs reveal bilateral rhonchi and crackles. No wheezes. Breath sounds are equal bilaterally. Breath sounds are minimally improved. Abdomen soft bowel sounds are heard. No masses or tenderness. Extremities are intact. No cyanosis clubbing or edema. Examination of the skin revealed no evidence of significant rashes, suspicious appearing nevi or other concerning lesions. Neurologically, the patient is awake and alert and the patient does not have any focal neurological deficit. Cranial nerves are essentially intact. Results - Laboratory Findings CBC and BMP: 02/07/22 08:12 02/08/22 07:30 Abnormal lab findings: Abnormal Labs 02/01/22 02/01/22 02/01/22 15:00 15:15 15:15 RBC 1.92 L Hgb 5.8 L* Hct 19.0 L* MCHC 30.4 L RDW 20.0 H Lymphocytes # 0.8 L Sodium 136 L Potassium Chloride Carbon Dioxide 21 L BUN 72 H Creatinine 1.52 H Glucose 140 H Plasma Lactic Acid Bony Calcium Total Bilirubin 2.1 H Troponin I Total Protein 6.2 L Albumin Stool Occult Blood Crossmatch See Detail 02/01/22 02/01/22 02/01/22 15:15 17:59 20:45 RBC Hgb Hct MCHC RDW Lymphocytes # Sodium Potassium Chloride Carbon Dioxide BUN Creatinine Glucose Plasma Lactic Acid Bony 2.2 H* Calcium Total Bilirubin Troponin I 0.276 H* Total Protein Albumin Stool Occult Blood Positive H Crossmatch 02/01/22 02/02/22 02/02/22 22:00 06:34 06:34 RBC 2.29 L 2.62 L Hgb 7.2 L 8.1 L Hct 22.1 L 25.0 L MCHC RDW 18.7 H 19.0 H Lymphocytes # Sodium Potassium Chloride 108 H Carbon Dioxide BUN 70 H Creatinine 1.48 H Glucose Plasma Lactic Acid Bony Calcium Total Bilirubin Troponin I Total Protein Albumin Stool Occult Blood Crossmatch 02/03/22 02/03/22 02/03/22 07:38 07:38 20:55 RBC 2.21 L 2.97 L Hgb 6.8 L* 9.1 L D Hct 21.2 L 28.1 L MCHC RDW 19.2 H 18.5 H Lymphocytes # Sodium Potassium Chloride Carbon Dioxide 21 L BUN 71 H Creatinine 1.46 H Glucose Plasma Lactic Acid Bony Calcium 8.3 L Total Bilirubin Troponin I Total Protein Albumin Stool Occult Blood Crossmatch 02/04/22 02/04/22 02/05/22 07:54 07:54 07:46 RBC 2.65 L Hgb 8.3 L Hct 25.1 L MCHC RDW 18.2 H Lymphocytes # Sodium 136 L Potassium 3.3 L Chloride Carbon Dioxide BUN 54 H 49 H Creatinine 1.50 H 1.73 H Glucose 104 H 130 H Plasma Lactic Acid Bony Calcium 8.1 L Total Bilirubin Troponin I Total Protein Albumin Stool Occult Blood Crossmatch 02/05/22 02/06/22 02/06/22 07:46 07:52 07:52 RBC 2.81 L 2.78 L Hgb 8.6 L 8.8 L Hct 27.0 L 26.9 L MCHC RDW 18.5 H 17.9 H Lymphocytes # Sodium 134 L Potassium Chloride Carbon Dioxide BUN 50 H Creatinine 1.60 H Glucose Plasma Lactic Acid Bony Calcium Total Bilirubin Troponin I Total Protein Albumin Stool Occult Blood Crossmatch 02/07/22 02/07/22 02/08/22 08:12 08:12 07:30 RBC 2.66 L Hgb 8.1 L Hct 25.8 L MCHC RDW 17.9 H Lymphocytes # Sodium 133 L 135 L Potassium Chloride Carbon Dioxide BUN 49 H 50 H Creatinine 1.71 H 1.64 H Glucose 158 H Plasma Lactic Acid Bony Calcium 8.2 L Total Bilirubin 1.6 H Troponin I Total Protein 5.5 L Albumin 3.2 L Stool Occult Blood Crossmatch - Diagnostic Findings Chest x-ray: image reviewed Assessment and Plan Plan: Acute on chronic shortness of breath. Acute worsening the patient shortness of breath is related to the significant blood loss that the patient encountered which we think is related to GI loss of blood as the patient's occult stool was positive and the patient further underwent endoscopies and the patient was found to have diverticulosis. This may be a slow ongoing GI bleed which throughout the patient's improvement significantly contributing to her shortness of breath. She is already feeling better after being transfused with packed RBC. Nevertheless, the patient has chronic dyspnea and the background which is related to various other factors Chronic hypoxic respiratory failure, as the patient is demented on 6 L of oxygen by nasal cannula since 2019. coronavirus associated pneumonia June 2021, recovered Chronic pulmonary hypertension, with severe dilatation of the RV and significant pulmonary hypertension History of chronic atrial fibrillation. Rate is controlled and the patient is Eliquis is long-term anticoagulation hypertension History of Tricuspid regurgitation. COPD Acute Anemia and patient had EDG/colonoscopy CKD stage III Plan As stated, the patient shortness of breath is an acute on top of chronic and acute component is related to her significant blood loss and anemia development. Nevertheless, coming back to pulmonary hypertension, the exact cause is not clear to me. [place] she is not age group for primary pulmonary hypertension and secondary causes needs to be looked for. The patient on oxygen since 2019 which makes me think that the patient has had chronic issues of pulmonary hypertension. The patient had previous CAT scan of the chest that showed emphysema yet, the severity of emphysema is not known and I would like to get a based on pulmonate function test along with diffusion capacity to assess her extent of airway obstruction and diffusion impairment and see if there is going to be any contribution from her COPD to her pulmonary hypertension. No clinical indication of pulmonary fibrosis. The patient has small pleural effusions and chronic atrial fibrillation. Other comorbid conditions are not present as the patient does not have any connective tissue disease or venous thrombolic disease or sleep breathing disorder to contributing to her pulmonary hypertension. Shunting whether his intracardiac shunting versus intracardiac cannot be completely ruled out. To summarize things, I agree that the patient's symptoms are chronic and she may deserve some deeper pulmonary hypertension which may include pft, hrct of the chest, right-sided cardiac cath and decide if anything can be done to help her out with her chronic hypoxemia and pulmonary hypert ension. meanwhile, oxygen therapy should be continued. there is no interval worsening in her oxygenation. monitor hemoglobin. continue to follow. i give the patient my information and I got to follow up on outpatient basis knowing that the patient has another twisthand in [facility].
[2022-02-08 14:22] LABS: Anisocytosis Slight; HCT 25.6 % (34.0-46.0); HGB 8.2 gm/dL (11.4-16.0); Hypochromasia Marked; MCHC 31.9 g/dL (31.0-37.0); MCV 97.3 fL (80.0-100.0); Macrocytosis Slight; Mean Platelet Volume 9.2; Platelet Count 206 k/uL (150-450); Poikilocytosis Slight; RBC 2.63 m/uL (3.80-5.40); RDW 17.3 % (11.5-15.5); WBC 8.2 k/uL (3.8-10.6)
[2022-02-09 07:47] LABS: Anisocytosis Slight; HCT 26.6 % (34.0-46.0); HGB 8.5 gm/dL (11.4-16.0); Hypochromasia Marked; MCH 31.1 pg (25.0-35.0); MCHC 31.8 g/dL (31.0-37.0); MCV 97.7 fL (80.0-100.0); Macrocytosis Slight; Platelet Count 234 k/uL (150-450); Poikilocytosis Slight; RBC 2.72 m/uL (3.80-5.40); RDW 17.5 % (11.5-15.5); WBC 7.6 k/uL (3.8-10.6)
[2022-02-09 07:55] LABS: Calcium 8.6 mg/dL (8.4-10.2); Potassium 4.2 mmol/L (3.5-5.1)
[2022-02-09] MEDS: SYMBICORT 80-4.5 MCG INHALER INHALATION SCH (08:20)
--- NOTE | 2022-02-09 08:23 | P.DS ---
Providers Date of admission: 02/01/22 18:30 Expected date of discharge: 02/09/22 Attending physician: Riki Toth MD Consults: 02/01/22 18:29 Consult Physician Routine Consulting Provider: [facility] Consult Reason/Comments: elevated troponin, type II nstemi, history of chf/afib Do you want consulting provider notified?: Already Contacted Consult Physician Routine Consulting Provider: Alberto Spangler Consult Reason/Comments: gi bleed Do you want consulting provider notified?: Already Contacted 02/08/22 10:50 Consult Physician Routine Consulting Provider: Emilee Dawson Consult Reason/Comments: Hypoxia Do you want consulting provider notified?: Already Contacted 02/09/22 06:44 Consult Physician Routine Consulting Provider: Hailey Goldman Consult Reason/Comments: elevated trop Do you want consulting provider notified?: Already Contacted Primary care physician: [facility] Course: This is a 76-year-old female with past medical history of peptic ulcer disease, diverticulosis ,chronic persistent atrial fibrillation on Eliquis, hypertension, hyperlipidemia, severe pulmonary hypertension, severe tricuspid regurgitation, gastroesophageal reflux disease, chronic respiratory failure, wears 6 L at home, former nicotine dependenceand multiple other medical issues referred to the ER per cardiology. Patient reports she had presented for her cardiology appointment, reported increased weakness, falls 3, dizziness. Denies syncope. Denies chest pain, palpitations Eliquis was stopped and she was sent to the ER.Reports stools were dark but did not see blood or clots in either stool or urine. Denies nausea or vomiting. Denies abdominal pain. Hemoglobin on admission 7.2, received 2 unist of packed RBC currently 8.1. Platelets 210. Renal function slowly improving, BUN 70, creatinine 1.48. Lactic acid 2.2 on admission, improved with IV fluid hydration, decreased to 1.7. EKG reportedly atrial fibrillation, incomplete right bundle branch block, Troponin elevated 0.276, proBNP 4390, UA negative, stool for occult blood positive. Currently requiring 5 L nasal cannula O2 to maintain O2 sats in the 90s in a patient who wears 6 L at home. Chest x-ray reporting some pulmonary interstitial fibrosis, present on prior exam, clearing of diffuse infiltrate in the right lung to a large extent compared to prior exam. Pt admitted to medicine, seen by Cardiology and surgery. She was transfused a total of 3 U PRBC, most recently on 02/01. She underwent endoscopy which showed diverticulosis and mild gastritis. She has not had any further bleeding in the hospital. Her eliquis was resumed and pt on her home oxygen, denies weakness, shortness of breath, melena, hematochezia. She is discharged in stable condition and recommended to follow up with her PCP within 1 week and closely monitor hemoglobin. Patient Condition at Discharge: Stable Plan - Discharge Summary Discharge Rx Participant: No New Discharge Prescriptions: New Apixaban [Eliquis] 2.5 mg PO BID 30 Days #60 tab Pantoprazole [Protonix] 40 mg PO DAILY 30 Days #30 tab Continue Metoprolol Tartrate [Lopressor] 25 mg PO BID Ipratropium-Albuterol Nebulize [Duoneb 0.5 mg-3 mg/3 ml Soln] 3 ml INHALATION RT-BID PRN PRN Reason: Shortness Of Breath Acetaminophen [Tylenol] 325 mg PO TID PRN PRN Reason: Pain Albuterol Sulfate [Ventolin HFA] 1 puff INHALATION RT-Q4H PRN PRN Reason: Shortness Of Breath Potassium Chloride ER [K-Dur 10] 10 meq PO DAILY Furosemide [Lasix] 40 mg PO DAILY Fluticasone Propion/Salmeterol [Fluticasone-Salmeterol 250-50] 1 puff INHALATION RT-BID Spironolactone 25 mg PO DAILY Atorvastatin [Lipitor] 40 mg PO DAILY Discontinued Apixaban [Eliquis] 5 mg PO DIRECTED Discharge Medication List Metoprolol Tartrate [Lopressor] 25 mg PO BID 06/29/19 [History] Acetaminophen [Tylenol] 325 mg PO TID PRN 06/26/21 [History] Fluticasone Propion/Salmeterol [Fluticasone-Salmeterol 250-50] 1 puff INHALATION RT-BID 06/26/21 [History] Ipratropium-Albuterol Nebulize [Duoneb 0.5 mg-3 mg/3 ml Soln] 3 ml INHALATION RT-BID PRN 06/26/21 [History] Albuterol Sulfate [Ventolin HFA] 1 puff INHALATION RT-Q4H PRN 02/01/22 [History] Atorvastatin [Lipitor] 40 mg PO DAILY 02/01/22 [History] Furosemide [Lasix] 40 mg PO DAILY 02/01/22 [History] Potassium Chloride ER [K-Dur 10] 10 meq PO DAILY 02/01/22 [History] Spironolactone 25 mg PO DAILY 02/01/22 [History] Apixaban [Eliquis] 2.5 mg PO BID 30 Days #60 tab 02/06/22 [Rx] Pantoprazole [Protonix] 40 mg PO DAILY 30 Days #30 tab 02/06/22 [Rx] Follow up Appointment(s)/Referral(s): Hailey Goldman MD [STAFF PHYSICIAN] - 1 Week Nuvia Lerner MD [Primary Care Provider] - 1-2 days Alberto Spangler MD [STAFF PHYSICIAN] - 1 Week Ambulatory/Diagnostic Orders: Complete Blood Count w/diff [LAB.AMB] Time Frame: 3 Days, Location: None Selected Activity/Diet/Wound Care/Special Instructions: Activity Limited until follow-up Follow-up with primary care provider on discharge Follow-up with cardiology outpatient Follow-up with general surgery in one week Recommend repeat labs in 2-3 days of CBC and BMP Continue heart healthy diet Discharge Disposition: HOME SELF-CARE
[2022-02-09] MEDS: LACTATED RINGERS 1,000 ML IV SCH (09:45)
[2022-02-09] MEDS: ATORVASTATIN 40 MG TAB PO SCH (10:21)
[2022-02-09] MEDS: FUROSEMIDE 40 MG TAB PO SCH (10:21)
[2022-02-09] MEDS: SPIRONOLACTONE 25 MG TAB PO SCH (10:21)
[2022-02-09] MEDS: APIXABAN 2.5 MG TABLET PO SCH (10:21)
[2022-02-09] MEDS: METOPROLOL TARTRATE 12.5 MG TAB PO SCH (10:21)
[2022-02-09] MEDS: PANTOPRAZOLE 40 MG TABLET PO SCH (10:23)
[2022-02-09 11:47] VITALS: BP 95/60; PULSE 85; RESP 18; TEMP 98.1
--- NOTE | 2022-02-09 15:10 | P.PN ---
Subjective Progress Note Date: 02/09/22 Principal diagnosis: Dyspnea This is a 76-year-old female with past medical history of peptic ulcer disease, diverticulosis ,chronic persistent atrial fibrillation on Eliquis, hypertension, hyperlipidemia, severe pulmonary hypertension, severe tricuspid regurgitation, gastroesophageal reflux disease, chronic respiratory failure, wears 6 L at home, former nicotine dependenceand multiple other medical issues referred to the ER per cardiology. Patient reports she had presented for her cardiology appointment, reported increased weakness, falls 3, dizziness. The patient was admitted to the hospital on 02/01/2022. I was asked to evaluate this patient by Dr. Goldman regarding her chronic pulmonary hypertension. Note that the patient has severe pulmonary hypertension. The patient is an ex-smoker and she has history of COPD. She has seen a operative supervisor, Dr. Durand, and the patient has been told not to have any significant lung disease. Nevertheless, the CAT scan of the chest that was done on previous hospitalizations, there is some obvious emphysematous changes bilaterally. At the same time, the patient was treated for: COVID 19 related infection/pneumonia back in June 2022 and she recovered without any major issues. She has been placed on oxygen approximately 2 years ago. No history of any chronic renal thrombolytic disease. No previous history of DVT or pulmonary embolism. No supportive fibrosis. Nausea or any intake of medication contributing to pulmonary hypertension. No chronic liver disease. On her chest x-ray, the patient has cardiomegaly and small effusion the lung bases bilaterally. Noted during this current admission, the patient came in to the hospital because of a significant drop in hemoglobin. Note that the patient has a normal hemoglobin of 12.5 back in June 2021. Hemoglobin dropped as low as 6.8. Occult stool was positive and the patient got transfused and the patient is feeling better while hemoglobin is up to 8.1. EGD and colonoscopy was done that showed antral gastritis and diverticulosis. No significant edema in lower extremity bilaterally.. Echocardiogram showed RV enlargement, severe TR, normal LV, On 02/09/2022 patient is seen in follow-up. She is awake and alert, in no acute distress, she remains on 4 L of oxygen by satting 99%. Occasional cough, no chest pain, no worsening dyspnea, no fever or chills. No evidence of active bleeding. Blood Pressure is been stable. Today's labs have been reviewed, hemoglobin is 8.5, white blood cell count is 7.6, sodium is 136, Rosa electrolyte are within normal limits, B1 is 49 creatinine is 1.52, profile is improving. No abdominal pain, no hematemesis, no blood per rectum. Objective - Vital Signs Vital signs: Vital Signs Temp 98.1 F 02/09/22 11:45 Pulse 85 02/09/22 11:45 Resp 18 02/09/22 11:45 BP 95/60 02/09/22 11:45 Pulse Ox 98 02/09/22 11:45 FiO2 28 02/04/22 19:09 Intake & Output 02/08/22 02/09/22 02/09/22 18:59 06:59 18:59 Intake Total 360 240 Balance 360 240 Weight 58.7 kg Intake: Oral 360 240 Other: Voiding Method Toilet Toilet - Exam GENERAL EXAM: Alert, very pleasant, 76-year-old on 4 L of oxygen pulse ox of 98% comfortable in no apparent distress. HEAD: Normocephalic/atraumatic. EYES: Normal reaction of pupils, equal size. Conjunctiva pink, sclera white. NOSE: Clear with pink turbinates. THROAT: No erythema or exudates. NECK: No masses, no JVD, no thyroid enlargement, no adenopathy. CHEST: No chest wall deformity. Symmetrical expansion. LUNGS: Equal air entry with no crackles, wheeze, rhonchi or dullness. CVS: Regular rate and rhythm, normal S1 and S2, no gallops, no murmurs, no rubs ABDOMEN: Soft, nontender. No hepatosplenomegaly, normal bowel sounds, no guarding or rigidity. EXTREMITIES: No clubbing, no edema, no cyanosis, 2+ pulses and upper and lower extremities. MUSCULOSKELETAL: Muscle strength and tone normal. SPINE: No scoliosis or deformity SKIN: No rashes CENTRAL NERVOUS SYSTEM: Alert and oriented -3. No focal deficits, tone is normal in all 4 extremities. PSYCHIATRIC: Alert and oriented -3. Appropriate affect. Intact judgment and insight. - Labs CBC & Chem 7: 02/09/22 06:36 02/09/22 06:36 Labs: Abnormal Lab Results - Last 24 Hours (Table) 02/09/22 02/09/22 Range/Units 06:36 06:36 RBC 2.72 L (3.80-5.40) m/uL Hgb 8.5 L (11.4-16.0) gm/dL Hct 26.6 L (34.0-46.0) % RDW 17.5 H (11.5-15.5) % Sodium 136 L (137-145) mmol/L BUN 49 H (7-17) mg/dL Creatinine 1.52 H (0.52-1.04) mg/dL Glucose 101 H (74-99) mg/dL Assessment and Plan Plan: Acute on chronic shortness of breath. Acute worsening the patient shortness of breath is related to the significant blood loss that the patient encountered which we think is related to GI loss of blood as the patient's occult stool was positive and the patient further underwent endoscopies and the patient was found to have diverticulosis. This may be a slow ongoing GI bleed which throughout the patient's improvement significantly contributing to her shortness of breath. She is already feeling better after being transfused with packed RBC. Nevertheless, the patient has chronic dyspnea and the background which is related to various other factors Chronic hypoxic respiratory failure, as the patient is demented on 6 L of oxygen by nasal cannula since 2019. coronavirus associated pneumonia June 2021, recovered Chronic pulmonary hypertension, with severe dilatation of the RV and signi ficant pulmonary hypertension History of chronic atrial fibrillation. Rate is controlled and the patient is Eliquis is long-term anticoagulation hypertension History of Tricuspid regurgitation. COPD Acute Anemia and patient had EDG/colonoscopy CKD stage III Plan: Hemodynamically stable, no evidence of active bleeding No worsening dyspnea Today's labs have been noted No acute events overnight Patient is being discharged home today Outpatient follow-up with Dr. Dawson the office in 7-10 days I have personally seen and examined the patient, performed the documentation and the assessment and plan as written. Number of minutes spent on the visit: [10] Time with Patient: Less than 30
== END 2022-02-09 13:31 | disposition home or self-care (01) | DRG 377 ==
LOC: EC 14:52 → 3SCARD 18:30
PROVIDERS: ADMIT Family Medicine; ATTEND Family Medicine
PROC: 30233N1 Transfusion of Nonautologous Red Blood Cells into Peripheral Vein, Percutaneous Approach (ICD-10-PCS; principal; 2022-02-01)
PROC: 0DB78ZX Excision of Stomach, Pylorus, Via Natural or Artificial Opening Endoscopic, Diagnostic (ICD-10-PCS; 2022-02-04 11:55)
PROC: 0DJD8ZZ Inspection of Lower Intestinal Tract, Via Natural or Artificial Opening Endoscopic (ICD-10-PCS; 2022-02-04 11:55)
DX: K57.31 Diverticulosis of large intestine without perforation or abscess with bleeding (principal); I21.A1 Myocardial infarction type 2; I50.33 Acute on chronic diastolic (congestive) heart failure; I48.19 Other persistent atrial fibrillation; I48.92 Unspecified atrial flutter; E87.2 Acidosis; J96.11 Chronic respiratory failure with hypoxia; N17.9 Acute kidney failure, unspecified; D62 Acute posthemorrhagic anemia; I13.0 Hypertensive heart and chronic kidney disease with heart failure and stage 1 through stage 4 chronic kidney disease, or unspecified chronic kidney disease; K29.70 Gastritis, unspecified, without bleeding; I27.20 Pulmonary hypertension, unspecified; I08.1 Rheumatic disorders of both mitral and tricuspid valves; I25.10 Atherosclerotic heart disease of native coronary artery without angina pectoris; K21.9 Gastro-esophageal reflux disease without esophagitis; J43.9 Emphysema, unspecified; E78.5 Hyperlipidemia, unspecified; K64.4 Residual hemorrhoidal skin tags; I45.10 Unspecified right bundle-branch block; R29.6 Repeated falls; N18.32 Chronic kidney disease, stage 3b; J84.10 Pulmonary fibrosis, unspecified; Z99.81 Dependence on supplemental oxygen; M54.50 Low back pain, unspecified; K44.9 Diaphragmatic hernia without obstruction or gangrene; R04.0 Epistaxis; Z79.01 Long term (current) use of anticoagulants; Z79.899 Other long term (current) drug therapy; Z87.891 Personal history of nicotine dependence; Z98.890 Other specified postprocedural states; Z86.16 Personal history of COVID-19; Z87.01 Personal history of pneumonia (recurrent); Z87.11 Personal history of peptic ulcer disease; Z80.0 Family history of malignant neoplasm of digestive organs; Z82.5 Family history of asthma and other chronic lower respiratory diseases
CPT/HCPCS: 36415; 43239; 45378; 71046; 80048; 80053; 81003; 82272; 83605; 83880; 84484; 85025; 85027; 86850; 86900; 86901; 86920; 88305; 93005; 93306; 94640; 94760; 99291

== ENCOUNTER 2022-05-03 14:17 | Inpatient (IN) | payer MEDICARE ==
--- NOTE | 2022-05-03 14:50 | ED ---
General Adult HPI - General Chief complaint: Shortness of Breath Stated complaint: sent for direct admit Time Seen by Provider: 05/03/22 14:27 Source: patient, family, RN/MD (I did speak with Dr. hawkins), RN notes reviewed Mode of arrival: wheelchair Limitations: no limitations - History of Present Illness Initial comments: Patient is a pleasant 77-year-old female presenting to the emergency department from Dr. Hawkins's office for dyspnea. Patient does have history of congestive heart failure, valvular disorder, pulmonary hypertension. Patient has had increasing edema and dyspnea. Symptoms have been present for well over a week now. Patient does have occasional chest discomfort, not at this time. No calf pain however patient does have bilateral leg edema. Symptoms do worsen with exertion. - Related Data Home Medications Medication Instructions Recorded Confirmed Metoprolol Tartrate [Lopressor] 25 mg PO BID 06/29/19 03/25/22 Acetaminophen [Tylenol] 325 mg PO TID PRN 06/26/21 03/25/22 Fluticasone Propion/Salmeterol 1 puff INHALATION RT-BID 06/26/21 03/25/22 [Fluticasone-Salmeterol 250-50] Ipratropium-Albuterol Nebulize 3 ml INHALATION RT-BID PRN 06/26/21 03/25/22 [Duoneb 0.5 mg-3 mg/3 ml Soln] Albuterol Sulfate [Ventolin HFA] 1 puff INHALATION RT-Q4H PRN 02/01/22 03/25/22 Atorvastatin [Lipitor] 40 mg PO DAILY 02/01/22 03/25/22 Furosemide [Lasix] 40 mg PO DAILY 02/01/22 03/25/22 Potassium Chloride ER [K-Dur 10] 10 meq PO DAILY 02/01/22 03/25/22 Spironolactone 25 mg PO DAILY 02/01/22 03/25/22 Previous Rx's Medication Instructions Recorded Apixaban [Eliquis] 2.5 mg PO BID 30 Days #60 tab 02/06/22 Pantoprazole [Protonix] 40 mg PO DAILY 30 Days #30 tab 02/06/22 Allergies Allergy/AdvReac Type Severity Reaction Status Date / Time No Known Allergies Allergy Verified 05/03/22 14:31 Review of Systems ROS Statement: Those systems with pertinent positive or pertinent negative responses have been documented in the HPI. ROS Other: All systems not noted in ROS Statement are negative. Constitutional: Denies: fever Eyes: Denies: eye pain ENT: Denies: ear pain Respiratory: Reports: dyspnea Cardiovascular: Reports: as per HPI, chest pain, dyspnea on exertion, edema Endocrine: Reports: fatigue Gastrointestinal: Denies: abdominal pain Genitourinary: Denies: dysuria Musculoskeletal: Denies: back pain Skin: Denies: rash Neurological: Denies: weakness Past Medical History Past Medical History: Atrial Fibrillation, Blood Disorder, GERD/Reflux, Hyperlipidemia, Hypertension, Osteoarthritis (OA) Additional Past Medical History / Comment(s): Mitral regurgitation, mild to moderate pulmonary HTN-per past medical hx/pt unaware, SOB with exertion, small hiatal hernia, current bilateral lower leg edema, occasional low back pain, arthritis bilateral hands. LOW HEMOGLOBIN- BLOOD TRANFUSIONS. 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 Past Anesthesia/Blood Transfusion Reactions: No Reported Reaction Additional Past Anesthesia/Blood Transfusion Reaction / Comment(s): no hx blood transfusion Past Psychological History: No Psychological Hx Reported Smoking Status: Former smoker - Past Family History Mother Family Medical History: Cancer Additional Family Medical History / Comment(s): bowel Father Family Medical History: COPD Additional Family Medical History / Comment(s): emphysema Brother(s) Family Medical History: Cancer Additional Family Medical History / Comment(s): Bowel cancer. General Exam Limitations: no limitations General appearance: alert Head exam: Present: normocephalic Neck exam: Present: normal inspection Respiratory exam: Present: decreased breath sounds Cardiovascular Exam: Present: regular rate, irregular rhythm GI/Abdominal exam: Present: soft. Absent: tenderness Extremities exam: Present: pedal edema. Absent: calf tenderness Back exam: Present: normal inspection Neurological exam: Present: alert Psychiatric exam: Present: normal affect, normal mood Skin exam: Present: normal color Course Vital Signs 05/03/22 05/03/22 14:26 15:42 Temperature 97.6 F Pulse Rate 73 84 Respiratory 20 18 Rate Blood Pressure 94/63 100/66 O2 Sat by Pulse 100 99 Oximetry EKG Findings - EKG Comments: EKG Findings:: A. fib with rate of 73. QRS 111. QT 424. QTC 451. Right axis. Incomplete right bundle-branch block. Nonspecific T waves. Medical Decision Making - Medical Decision Making Patient reevaluated. Patient and family updated. Case discussed with Dr. Huerta, who will admit. - Lab Data Result diagrams: 05/03/22 15:01 05/03/22 15:01 Lab Results 05/03/22 05/03/22 05/03/22 Range/Units 15:01 15:01 15:01 WBC 9.7 (3.8-10.6) k/uL RBC 3.62 L (3.80-5.40) m/uL Hgb 10.2 L (11.4-16.0) gm/dL Hct 32.3 L (34.0-46.0) % MCV 89.2 (80.0-100.0) fL MCH 28.2 (25.0-35.0) pg MCHC 31.6 (31.0-37.0) g/dL RDW 19.9 H (11.5-15.5) % Plt Count 267 (150-450) k/uL MPV 8.5 Neutrophils % 76 % Lymphocytes % 12 % Monocytes % 6 % Eosinophils % 3 % Basophils % 1 % Neutrophils # 7.3 (1.3-7.7) k/uL Lymphocytes # 1.2 (1.0-4.8) k/uL Monocytes # 0.6 (0-1.0) k/uL Eosinophils # 0.3 (0-0.7) k/uL Basophils # 0.1 (0-0.2) k/uL Hypochromasia Moderate Anisocytosis Slight PT 13.1 H (9.0-12.0) sec INR 1.2 H (<1.2) APTT 23.9 (22.0-30.0) sec Sodium 135 L (137-145) mmol/L Potassium 3.5 (3.5-5.1) mmol/L Chloride 86 L (98-107) mmol/L Carbon Dioxide 29 (22-30) mmol/L Anion Gap 20 mmol/L BUN 91 H (7-17) mg/dL Creatinine 2.24 H (0.52-1.04) mg/dL Est GFR (CKD-EPI)AfAm 23 (>60 ml/min/1.73 sqM) Est GFR (CKD-EPI)NonAf 20 (>60 ml/min/1.73 sqM) Glucose 110 H (74-99) mg/dL Calcium 9.3 (8.4-10.2) mg/dL Total Bilirubin 2.3 H (0.2-1.3) mg/dL AST 33 (14-36) U/L ALT 15 (4-34) U/L Alkaline Phosphatase 91 (38-126) U/L NT-Pro-B Natriuret Pep pg/mL Total Protein 6.7 (6.3-8.2) g/dL Albumin 4.3 (3.5-5.0) g/dL Coronavirus (PCR) (Not Detectd) 05/03/22 05/03/22 Range/Units 15:01 15:01 WBC (3.8-10.6) k/uL RBC (3.80-5.40) m/uL Hgb (11.4-16.0) gm/dL Hct (34.0-46.0) % MCV (80.0-100.0) fL MCH (25.0-35.0) pg MCHC (31.0-37.0) g/dL RDW (11.5-15.5) % Plt Count (150-450) k/uL MPV Neutrophils % % Lymphocytes % % Monocytes % % Eosinophils % % Basophils % % Neutrophils # (1.3-7.7) k/uL Lymphocytes # (1.0-4.8) k/uL Monocytes # (0-1.0) k/uL Eosinophils # (0-0.7) k/uL Basophils # (0-0.2) k/uL Hypochromasia Anisocytosis PT (9.0-12.0) sec INR (<1.2) APTT (22.0-30.0) sec Sodium (137-145) mmol/L Potassium (3.5-5.1) mmol/L Chloride (98-107) mmol/L Carbon Dioxide (22-30) mmol/L Anion Gap mmol/L BUN (7-17) mg/dL Creatinine (0.52-1.04) mg/dL Est GFR (CKD-EPI)AfAm (>60 ml/min/1.73 sqM) Est GFR (CKD-EPI)NonAf (>60 ml/min/1.73 sqM) Glucose (74-99) mg/dL Calcium (8.4-10.2) mg/dL Total Bilirubin (0.2-1.3) mg/dL AST (14-36) U/L ALT (4-34) U/L Alkaline Phosphatase (38-126) U/L NT-Pro-B Natriuret Pep 9160 pg/mL Total Protein (6.3-8.2) g/dL Albumin (3.5-5.0) g/dL Coronavirus (PCR) Not Detected (Not Detectd) - Radiology Data Radiology results: image reviewed (Chest x-ray shows cardiomegaly. There is diffuse interstitial densities, consider multifocal infectious infiltrates versus CHF with patchy pulmonary edema.) Disposition Clinical Impression: Heart failure, CKD (chronic kidney disease) Disposition: ADMITTED IP TO THIS HOSP Is patient prescribed a controlled substance at d/c from ED?: No Referrals: Nuvia Lerner MD [Primary Care Provider] - 1-2 days Time of Disposition: 15:45
[2022-05-03] MEDS ORDERED: FUROSEMIDE 10 MG/ML 4 ML VIAL IV STA (15:11)
[2022-05-03 15:20] LABS: Anisocytosis Slight; Basophils # (A) 0.1 k/uL (0-0.2); Basophils % (A) 1 %; Eosinophils # (A) 0.3 k/uL (0-0.7); Eosinophils % (A) 3 %; HCT 32.3 % (34.0-46.0); HGB 10.2 gm/dL (11.4-16.0); Hypochromasia Moderate; Lymphocytes # (A) 1.2 k/uL (1.0-4.8); Lymphocytes % (A) 12 %; MCH 28.2 pg (25.0-35.0); MCHC 31.6 g/dL (31.0-37.0); MCV 89.2 fL (80.0-100.0); Mean Platelet Volume 8.5; Monocytes # (A) 0.6 k/uL (0-1.0); Monocytes % (A) 6 %; Neutrophils # (A) 7.3 k/uL (1.3-7.7); Neutrophils % (A) 76 %; Platelet Count 267 k/uL (150-450); RBC 3.62 m/uL (3.80-5.40); RDW 19.9 % (11.5-15.5); WBC 9.7 k/uL (3.8-10.6)
[2022-05-03 15:25] LABS: INR 1.2 (<1.2); Prothrombin Time 13.1 sec (9.0-12.0)
[2022-05-03 15:26] LABS: Partial Thromboplastin Time 23.9 sec (22.0-30.0)
[2022-05-03] MEDS ORDERED: diphenhydrAMINE 25 MG CAP PO STA (15:26)
[2022-05-03 15:28] LABS: Albumin 4.3 g/dL (3.5-5.0); Calcium 9.3 mg/dL (8.4-10.2); Potassium 3.5 mmol/L (3.5-5.1); Total Bilirubin 2.3 mg/dL (0.2-1.3); Total Protein 6.7 g/dL (6.3-8.2)
--- NOTE | 2022-05-03 15:34 | XR ---
EXAMINATION TYPE: XR chest 2V DATE OF EXAM: 05/03/2022 COMPARISON: 02/01/2022 HISTORY: 77 year-old female shortness of breath, difficulty breathing TECHNIQUE: AP and lateral views FINDINGS: The heart is moderately enlarged. Diffuse interstitial and bilateral patchy opacities. No sizable ple ural effusion. IMPRESSION: 1. Moderate cardiomegaly. 2. Diffuse interstitial densities and mild bilateral patchy infiltrates. Consider multifocal infectio us infiltrates versus sequela of CHF with patchy pulmonary edema. No sizable pleural effusion.
[2022-05-03] MEDS ORDERED: ASPIRIN 325 MG TAB PO STA (15:45)
[2022-05-03] MEDS: NITROGLYCERIN OINT 1 INCH/GM PACKET TOPICAL SCH ×2 (17:44→22:17)
[2022-05-03] MEDS ORDERED: ACETAMINOPHEN TAB 325 MG TAB PO PRN (22:07)
[2022-05-03] MEDS: APIXABAN 2.5 MG TABLET PO SCH (22:17)
[2022-05-03] MEDS: METOPROLOL TARTRATE 25 MG TAB PO SCH (22:43)
[2022-05-03] MEDS: POTASSIUM CHLORIDE ER 10 MEQ TAB.ER.PRT PO SCH (22:45)
[2022-05-04] MEDS ORDERED: FUROSEMIDE 10 MG/ML 4 ML VIAL IV SCH
[2022-05-04] MEDS: BUMETANIDE 0.25 MG/ML 10 ML VIAL IV SCH ×3 (00:09→23:57)
[2022-05-04] MEDS ORDERED: ASPIRIN 325 MG TAB PO SCH (09:00)
[2022-05-04 09:04] LABS: Calcium 9.2 mg/dL (8.4-10.2)
[2022-05-04] MEDS: METOPROLOL TARTRATE 25 MG TAB PO SCH ×2 (09:04→21:31)
[2022-05-04] MEDS: ATORVASTATIN 40 MG TAB PO SCH (09:05)
[2022-05-04] MEDS: APIXABAN 2.5 MG TABLET PO SCH (09:05)
[2022-05-04] MEDS: SPIRONOLACTONE 25 MG TAB PO SCH (09:05)
[2022-05-04] MEDS: PANTOPRAZOLE 40 MG TABLET PO SCH (09:05)
[2022-05-04] MEDS: POTASSIUM CHLORIDE ER 10 MEQ TAB.ER.PRT PO SCH ×2 (09:05→21:31)
[2022-05-04] MEDS ORDERED: Potassium Replacement Protocol 1 EACH MISC MISCELLANE PRN (10:29)
--- NOTE | 2022-05-04 10:42 | P.CRDCN ---
History of Present Illness History of present illness: The patient is a 76-year-old female with a known history of mild nonobstructive coronary artery disease, atrial fibrillation on eliquis, severe pulmonary hypertension, severe mitral regurgitation, severe tricuspid regurgitation, mild nonobstructive coronary artery disease, PFO, and dyslipidemia, hypertension, history of pulmonary embolism, chronic respiratory failure where 6 L of oxygen a t home.. She follows we Dr. Goldman. We have been asked to see the patient for congestive heart failure. Patient presents as department from the outpatient [facility] office after a follow up appointment with Dr. Goldman. Patient has been having symptoms of worsening shortness of breath, lower extremity edema, symptoms of orthopnea. Her diuretics have been adjusted as an outpatient without any significant improvement in her symptoms. Also recent lab workup revealed worsening renal function and elevation of her BNP. It was recommended that patient be evaluated in the emergency department and be admitted for IV diuretics. On admission patient was started on IV Bumex with improvement in her symptoms. DIAGNOSTICS * EKG reveals atrial fibrillation, heart rate 84, incomplete right bundle branch block, nonspecific T-wave abnormalities. QTC 463ms * Echocardiogram 01/2022 revealed an EF of 50%, severe right ventricular dilatation with severe pulmonary hypertension, RVSP 123mmHg, severe tricuspid regurgitation, right ventricular apical hypokinesis. * Echocardiogram 06/2021 in the office patient was in normal EF, severe tricuspid regurgitation, severe pulmonary hypertension, RVSP 75 mmHg * Telemetry tracings indicate atrial fibrillation with controlled ventricular rates * Chest xray cardiomegaly, diffuse interstitial and bilateral patchy opacities, pulmonary edema * Laboratory reviewed, proBNP 9160, troponin negative 3, sodium 134, potassium 3.0, BUN 76, serum creatinine 2.1, hemoglobin 10.2 * Current home cardiac medications include metolazone 5 mg every 48 hours when necessary, spironolactone 25 mg daily, potassium chloride, metoprolol titrate 25 mg twice a day, Lasix 40 mg by mouth daily, atorvastatin 40 mg daily, Eliquis 2.5 mg twice a day * Cardiac catheterization History: * 11/2018 revealed minimal nonobstructive coronary artery disease, cardiac output 3.4 L, pulmonary artery systolic pressure 48 with a diastolic of 18, mean of 28 mmHg. Right ventricle systolic pressure 15 with end-diastolic of 5. 2 to 3+ mitral regurgitation REVIEW OF SYSTEMS At the time of my exam: CONSTITUTIONAL: Denies fever or chills. CARDIOVASCULAR: Denies chest pain, +shortness of breath, +orthopnea, +PND Denies palpitations. RESPIRATORY: Denies cough. GASTROINTESTINAL: Denies abdominal pain, diarrhea, constipation, nausea or vomiting. MUSCULOSKELETAL: Denies myalgias. NEUROLOGIC: Denies numbness, tingling, headacbe or weakness. ENDOCRINE: Denies fatigue, weight change, polydipsia or polyurina. GENITOURINARY: Denies burning, hematuria or urgency with micturation. HEMATOLOGIC:+history of anemia History of bleeding. +History of PE PHYSICAL EXAMINATION Blood pressure 101/70, heart rate 75, afebrile, oxygen saturation 75% on 6 L nasal cannula CONSTITUTIONAL: No apparent distress. HEENT: Head is normocephalic. Pupils are equal, round. Sclerae anicteric. Mucous membranes of the mouth are moist. CHEST EXAMINATION: Lungs are crackles bilateral bases to auscultation. No chest wall tenderness is noted on palpation or with deep breathing. HEART EXAMINATION: Irregular rate and rhythm. S1, S2 heard. ABDOMEN: Soft, nontender. Positive bowel sounds. EXTREMITIES: 2+ peripheral pulses, 3+ bilateral lower extremity edema and no calf tenderness. NEUROLOGIC EXAMINATION: Patient is awake, alert and oriented x3. ASSESSMENT Acute on chronic heart failure with preserved ejection fraction Worsening symptoms of dyspnea with known history of severe pulmonary hypertension with most recent echo 01/2022 with RVSP 123 Long standing persistent atrial fibrillation on Eliquis History of hypertension Mild nonobstructive coronary artery disease by cardiac catheterization in 2019 Dyslipidemia PFO History of pulmonary embolism PLAN Obtain repeat Echocardiogram to evaluate right sided pressures Obtain VQ scan to assess for possible PE and chronic thromboembolic pulmonary h ypertension IV Bumex 2mg BID Monitor I/Os daily weights, renal function and electrolytes Continue home Eliquis, statin, beta thomas and sprionolactone Consider right heart catheterization and consider Revatio after right heart cath Continue metoprolol and spironolactone Depending on her progress further recommendations will be made. Nurse practitioner note has been reviewed by physician. Signing provider agrees with the documented findings, assessment, and plan of care. Past Medical History Past Medical History: Atrial Fibrillation, Blood Disorder, GERD/Reflux, Hyperlipidemia, Hypertension, Osteoarthritis (OA) Additional Past Medical History / Comment(s): Mitral regurgitation, mild to moderate pulmonary HTN-per past medical hx/pt unaware, SOB with exertion, small hiatal hernia, current bilateral lower leg edema, occasional low back pain, arthritis bilateral hands. LOW HEMOGLOBIN- BLOOD TRANFUSIONS. 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 Past Anesthesia/Blood Transfusion Reactions: No Reported Reaction Additional Past Anesthesia/Blood Transfusion Reaction / Comment(s): no hx blood transfusion Past Psychological History: No Psychological Hx Reported Additional Psychological History / Comment(s): Pt resides with her family. Pt states she doesn't get up often. Smoking Status: Former smoker Past Alcohol Use History: None Reported Additional Past Alcohol Use History / Comment(s): Pt started smoking in 1958 and quit in 1977. She was a 2ppd smoker. Past Drug Use History: None Reported - Past Family History Mother Family Medical History: Cancer Additional Family Medical History / Comment(s): bowel Father Family Medical History: COPD Additional Family Medical History / Comment(s): emphysema Brother(s) Family Medical History: Cancer Additional Family Medical History / Comment(s): Bowel cancer. Medications and Allergies Home Medications Medication Instructions Recorded Confirmed Type Metoprolol Tartrate [Lopressor] 25 mg PO BID 06/29/19 05/03/22 History Acetaminophen [Tylenol] 325 mg PO TID PRN 06/26/21 05/03/22 History Fluticasone Propion/Salmeterol 1 puff INHALATION RT-BID 06/26/21 05/03/22 History [Fluticasone-Salmeterol 250-50] Ipratropium-Albuterol Nebulize 3 ml INHALATION RT-BID PRN 06/26/21 05/03/22 History [Duoneb 0.5 mg-3 mg/3 ml Soln] Albuterol Sulfate [Ventolin HFA] 1 puff INHALATION RT-Q4H PRN 02/01/22 05/03/22 History Atorvastatin [Lipitor] 40 mg PO DAILY 02/01/22 05/03/22 History Furosemide [Lasix] 40 mg PO BID 02/01/22 05/03/22 History Potassium Chloride ER [K-Dur 10] 10 meq PO BID 02/01/22 05/03/22 History Spironolactone 25 mg PO DAILY 02/01/22 05/03/22 History Apixaban [Eliquis] 2.5 mg PO BID 30 Days #60 tab 02/06/22 05/03/22 Rx Pantoprazole [Protonix] 40 mg PO DAILY 30 Days #30 tab 02/06/22 05/03/22 Rx Wheat Dextrin [Benefiber] 1 packet PO DAILY 05/03/22 05/03/22 History metOLazone [Zaroxolyn] 5 mg PO Q48H PRN 05/03/22 05/03/22 History Allergies Allergy/AdvReac Type Severity Reaction Status Date / Time No Known Allergies Allergy Verified 05/03/22 16:47 Physical Exam Vitals: Vital Signs Temp Pulse Pulse Resp BP BP Pulse Ox 05/04/22 03:35 98.2 F 84 20 95/59 97 05/04/22 00:05 71 18 100/58 98 05/03/22 20:25 97.3 F L 76 20 108/68 98 05/03/22 20:20 94/60 05/03/22 18:13 67 18 112/67 100 05/03/22 17:45 81 18 96/67 97 05/03/22 16:35 72 18 95/57 99 05/03/22 15:43 18 05/03/22 15:42 84 18 100/66 99 05/03/22 14:26 97.6 F 73 20 94/63 100 Intake and Output 05/03/22 05/04/22 05/04/22 22:59 06:59 14:59 Output Total 400 Balance -400 Output: Urine 400 Other: Voiding Method Bedpan Bedpan # Voids 1 Weight 68.039 kg 67.5 kg Results 05/03/22 15:01 05/04/22 08:02 Cardiac Enzymes 05/03/22 05/03/22 05/03/22 Range/Units 15:01 15:01 16:30 AST 33 (14-36) U/L Troponin I 0.036 H* 0.030 (0.000-0.034) ng/mL 05/03/22 Range/Units 20:49 AST (14-36) U/L Troponin I 0.031 (0.000-0.034) ng/mL Coagulation 05/03/22 Range/Units 15:01 PT 13.1 H (9.0-12.0) sec APTT 23.9 (22.0-30.0) sec CBC 05/03/22 Range/Units 15:01 WBC 9.7 (3.8-10.6) k/uL RBC 3.62 L (3.80-5.40) m/uL Hgb 10.2 L (11.4-16.0) gm/dL Hct 32.3 L (34.0-46.0) % Plt Count 267 (150-450) k/uL Comprehensive Metabolic Panel 05/03/22 Range/Units 15:01 Sodium 135 L (137-145) mmol/L Potassium 3.5 (3.5-5.1) mmol/L Chloride 86 L (98-107) mmol/L Carbon Dioxide 29 (22-30) mmol/L BUN 91 H (7-17) mg/dL Creatinine 2.24 H (0.52-1.04) mg/dL Glucose 110 H (74-99) mg/dL Calcium 9.3 (8.4-10.2) mg/dL AST 33 (14-36) U/L ALT 15 (4-34) U/L Alkaline Phosphatase 91 (38-126) U/L Total Protein 6.7 (6.3-8.2) g/dL Albumin 4.3 (3.5-5.0) g/dL Current Medications Generic Name Dose Route Start Last Admin Trade Name Freq PRN Reason Stop Dose Admin Acetaminophen 325 mg 05/03/22 22:07 Acetaminophen Tab 325 Mg Tab PO TID PRN Pain Apixaban 2.5 mg 05/03/22 22:15 05/03/22 22:17 Apixaban 2.5 Mg Tablet PO Not Given BID [facility] Protocol Aspirin 325 mg 05/04/22 09:00 Aspirin 325 Mg Tab PO DAILY [facility] Atorvastatin Calcium 40 mg 05/04/22 09:00 Atorvastatin 40 Mg Tab PO DAILY [facility] Bumetanide 2 mg 05/04/22 00:01 05/04/22 00:09 Bumetanide 0.25 Mg/Ml 10 Ml Vial IV 2 mg Q12H JOLENE Administration Metoprolol Tartrate 25 mg 05/03/22 22:15 05/03/22 22:43 Metoprolol Tartrate 25 Mg Tab PO 25 mg BID JOLENE Administration Nitroglycerin 1 inch 05/03/22 18:00 05/03/22 22:17 Nitroglycerin Oint 1 Inch/Gm Packet TOPICAL Not Given QID JOLENE Pantoprazole Sodium 40 mg 05/04/22 09:00 Pantoprazole 40 Mg Tablet PO DAILY JOLENE Potassium Chloride 10 meq 05/03/22 22:15 05/03/22 22:45 Potassium Chloride Er 10 Meq Tab.Er.Prt PO 10 meq BID JOLENE Administration Spironolactone 25 mg 05/04/22 09:00 Spironolactone 25 Mg Tab PO DAILY JOLENE Intake and Output 05/03/22 05/04/22 05/04/22 22:59 06:59 14:59 Output Total 400 Balance -400 Output: Urine 400 Other: Voiding Method Bedpan Bedpan # Voids 1 Weight 68.039 kg 67.5 kg 05/03/22 15:01 05/03/22 15:01
[2022-05-04] MEDS: POTASSIUM CHLORIDE ER 20 MEQ TAB.ER PO SCH ×3 (13:07→18:26)
--- NOTE | 2022-05-04 13:08 | NM ---
EXAMINATION TYPE: NM pul vent and perfuse DATE OF EXAM: 05/04/2022 COMPARISON: NONE HISTORY: Evaluate for possible pulmonary embolism TECHNIQUE: Utilizing inhalation of 37 mCi Tc 99m DTPA aerosol and intravenous injection of 4.6 mCi o f Tc 99m MAA, ventilation and perfusion images are acquired post injection in multiple projections. FINDINGS: Multiple matched defects are seen on perfusion and ventilation images. No definite perfusion mismatch at this time. IMPRESSION: Intermediate probability for pulmonary embolism.
--- NOTE | 2022-05-04 15:15 | P.HPIM ---
History of Present Illness H&P Date: 05/04/22 Chief Complaint: Worsening exertional dyspnea, bilateral lower extremity edema This is a 77-year-old female with past medical history of peptic ulcer disease, diverticulosis ,chronic persistent atrial fibrillation on Eliquis, hypertension, hyperlipidemia, severe pulmonary hypertension, severe tricuspid regurgitation, gastroesophageal reflux disease, chronic respiratory failure, wears 6 L at home, former nicotine dependenceand multiple other medical issues referred to the ER per cardiology yesterday. Diuretics had been adjusted outpatient, without improvement. Patient reports she had worsening exertional dyspnea over the last few months accompanied by lower extremity edema denies chest pain, palpitations or cough.Reports compliance with med regimen. IV diuretics initiated in the ER. Echo 02/02/2022 reported normal LV systolic function, severe right ventricular dilation with severe pulmonary hypertension, right ventricular apical hypokinesis, severe tricuspid regurgitation. EKG reporting atrial fibrillation, nonspecific T-waves, incomplete right bundle branch block. Troponin 0.036, 0.030, 0.031. ProBNP 9160. Chest x-ray reporting moderate cardiomegaly, diffuse interstitial densities with mild patchy bilateral infiltrates.Sodium 134, potassium 3-receiving supplementation, BUN 96, creatinine decreased to 2.1, hemoglobin 10.2. Review of Systems ROS Statement: Those systems with pertinent positive or pertinent negative responses have been documented in the HPI. ROS Other: All systems not noted in ROS Statement are negative. Past Medical History Past Medical History: Atrial Fibrillation, Blood Disorder, GERD/Reflux, Hyperlipidemia, Hypertension, Osteoarthritis (OA) Additional Past Medical History / Comment(s): Mitral regurgitation, mild to moderate pulmonary HTN-per past medical hx/pt unaware, SOB with exertion, small hiatal hernia, current bilateral lower leg edema, occasional low back pain, arthritis bilateral hands. LOW HEMOGLOBIN- BLOOD TRANFUSIONS. 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 Past Anesthesia/Blood Transfusion Reactions: No Reported Reaction Additional Past Anesthesia/Blood Transfusion Reaction / Comment(s): no hx blood transfusion Past Psychological History: No Psychological Hx Reported Additional Psychological History / Comment(s): Pt resides with her family. Pt states she doesn't get up often. Smoking Status: Former smoker Past Alcohol Use History: None Reported Additional Past Alcohol Use History / Comment(s): Pt started smoking in 7 and quit in 1977. She was a 2ppd smoker. Past Drug Use History: None Reported - Past Family History Mother Family Medical History: Cancer Additional Family Medical History / Comment(s): bowel Father Family Medical History: COPD Additional Family Medical History / Comment(s): emphysema Brother(s) Family Medical History: Cancer Additional Family Medical History / Comment(s): Bowel cancer. Medications and Allergies Home Medications Medication Instructions Recorded Confirmed Type Metoprolol Tartrate [Lopressor] 25 mg PO BID 06/29/19 05/03/22 History Acetaminophen [Tylenol] 325 mg PO TID PRN 06/26/21 05/03/22 History Fluticasone Propion/Salmeterol 1 puff INHALATION RT-BID 06/26/21 05/03/22 History [Fluticasone-Salmeterol 250-50] Ipratropium-Albuterol Nebulize 3 ml INHALATION RT-BID PRN 06/26/21 05/03/22 History [Duoneb 0.5 mg-3 mg/3 ml Soln] Albuterol Sulfate [Ventolin HFA] 1 puff INHALATION RT-Q4H PRN 02/01/22 05/03/22 History Atorvastatin [Lipitor] 40 mg PO DAILY 02/01/22 05/03/22 History Furosemide [Lasix] 40 mg PO BID 02/01/22 05/03/22 History Potassium Chloride ER [K-Dur 10] 10 meq PO BID 02/01/22 05/03/22 History Spironolactone 25 mg PO DAILY 02/01/22 05/03/22 History Apixaban [Eliquis] 2.5 mg PO BID 30 Days #60 tab 02/06/22 05/03/22 Rx Pantoprazole [Protonix] 40 mg PO DAILY 30 Days #30 tab 02/06/22 05/03/22 Rx Wheat Dextrin [Benefiber] 1 packet PO DAILY 05/03/22 05/03/22 History metOLazone [Zaroxolyn] 5 mg PO Q48H PRN 05/03/22 05/03/22 History Allergies Allergy/AdvReac Type Severity Reaction Status Date / Time No Known Allergies Allergy Verified 05/03/22 16:47 Physical Exam Vitals: Vital Signs Temp Pulse Pulse Resp BP BP Pulse Ox 05/04/22 14:00 77 18 05/04/22 11:47 96.6 F L 77 18 95/50 95 05/04/22 08:00 75 20 05/04/22 07:24 97.7 F 75 20 101/70 95 05/04/22 03:35 98.2 F 84 20 95/59 97 05/04/22 00:05 71 18 100/58 98 05/03/22 20:25 97.3 F L 76 20 108/68 98 05/03/22 20:20 94/60 05/03/22 18:13 67 18 112/67 100 05/03/22 17:45 81 18 96/67 97 05/03/22 16:35 72 18 95/57 99 05/03/22 15:43 18 05/03/22 15:42 84 18 100/66 99 Intake and Output 05/03/22 05/04/22 05/04/22 22:59 06:59 14:59 Intake Total 656 Output Total 400 220 Balance -400 436 Intake: Oral 656 Output: Urine 400 220 Other: Voiding Method Bedpan Bedpan Bedpan # Voids 1 2 Weight 68.039 kg 67.5 kg 67.5 kg - Exam PHYSICAL EXAM: VITAL SIGNS: As above GENERAL: Alert and oriented 3, Sitting up in bed, no acute distress HEENT: Conjunctivae normal. eyes normal. NECK: Supple, + JVD. CARDIOVASCULAR: S1, S2, irregular. Systolic murmur. RESPIRATION: Breath sounds diminished in the bases.CTA. ABDOMEN: Soft, nontender . No guarding. no masses palpable.Bowel sounds heard. LEGS: Positive edema, no clubbing, no cyanosis, +DP NERVOUS SYSTEM: Cranial N 2-12 grossly normal. No focal deficits. Strength and sensation grossly intact. Skin: Warm and dry, no rash Results CBC & Chem 7: 05/03/22 15:01 05/04/22 08:02 Labs: Abnormal Lab Results - Last 24 Hours (Table) 05/03/22 05/03/2222 Range/Units 15:01 15:01 15:01 RBC 3.62 L (3.80-5.40) m/uL Hgb 10.2 L (11.4-16.0) gm/dL Hct 32.3 L (34.0-46.0) % RDW 19.9 H (11.5-15.5) % PT 13.1 H (9.0-12.0) sec INR 1.2 H (<1.2) Sodium 135 L (137-145) mmol/L Potassium (3.5-5.1) mmol/L Chloride 86 L (98-107) mmol/L BUN 91 H (7-17) mg/dL Creatinine 2.24 H (0.52-1.04) mg/dL Glucose 110 H (74-99) mg/dL Plasma Lactic Acid Bony (0.7-2.0) mmol/L Total Bilirubin 2.3 H (0.2-1.3) mg/dL Troponin I (0.000-0.034) ng/mL 05/03/22 05/03/22 05/04/22 Range/Units 15:01 15:01 08:02 RBC (3.80-5.40) m/uL Hgb (11.4-16.0) gm/dL Hct (34.0-46.0) % RDW (11.5-15.5) % PT (9.0-12.0) sec INR (<1.2) Sodium 134 L (137-145) mmol/L Potassium 3.0 L (3.5-5.1) mmol/L Chloride 88 L (98-107) mmol/L BUN 96 H (7-17) mg/dL Creatinine 2.13 H (0.52-1.04) mg/dL Glucose 122 H (74-99) mg/dL Plasma Lactic Acid Bony 4.4 H* (0.7-2.0) mmol/L Total Bilirubin (0.2-1.3) mg/dL Troponin I 0.036 H* (0.000-0.034) ng/mL Thrombosis Risk Factor Assmnt - Choose All That Apply Each Factor Represents 1 point: Medical pt on bed rest Each Risk Factor Represents 3 Points: Age 75 years or older Thrombosis Risk Factor Assessment Total Risk Factor Score: 4 Thrombosis Risk Factor Assessment Level: Moderate Risk Assessment and Plan Assessment: Acute on chronic congestive heart failure, diastolic dysfunction, preserved EF Chronic hypoxic respiratory failure, wears 6 L nasal cannula O2 at home Acute renal failure. Chronic kidney disease stage III History of Covid-19 pneumonia, 06/28 Chronic Pulmonary hypertension, severe Chronic persistent atrial fibrillation, anticoagulated on Eliquis CAD Hypertension Severe tricuspid regurgitation Former nicotine dependence Plan: Continue on current medication regime ,monitoring and symptomatic treatment. Maintain diuresing with Bumex IV push as per cardiology. Close monitoring of renal function with repeat labs ordered for a.m. Echo, VQ scan pending. Potassium supplementation in progress. Cardiology discussing pote ntial cardiac catheterization/ Nephrology consulted regarding renal failure. The impression and plan of care has been dictated as directed. : I performed a history and examination of this patient, discussed the same with the dictator. I agree with the dictator's note ,documented as a scribe. Any additional findings or plans will be noted.
[2022-05-04] MEDS: APIXABAN 5 MG TAB PO SCH (21:31)
[2022-05-04] MEDS: diphenhydrAMINE 25 MG CAP PO PRN (21:58)
[2022-05-05 07:40] LABS: Anisocytosis Slight; Basophils # (A) 0.1 k/uL (0-0.2); Basophils % (A) 1 %; Eosinophils # (A) 0.3 k/uL (0-0.7); Eosinophils % (A) 4 %; HCT 27.8 % (34.0-46.0); Hypochromasia Marked; Lymphocytes % (A) 14 %; MCH 27.8 pg (25.0-35.0); MCHC 30.8 g/dL (31.0-37.0); MCV 90.3 fL (80.0-100.0); Mean Platelet Volume 8.8; Monocytes # (A) 0.4 k/uL (0-1.0); Monocytes % (A) 6 %; Neutrophils # (A) 5.2 k/uL (1.3-7.7); Neutrophils % (A) 73 %; Platelet Count 230 k/uL (150-450); Poikilocytosis Slight; RBC 3.07 m/uL (3.80-5.40); RDW 19.9 % (11.5-15.5); WBC 7.2 k/uL (3.8-10.6)
[2022-05-05 07:45] LABS: Calcium 8.9 mg/dL (8.4-10.2); Magnesium 2.4 mg/dL (1.6-2.3); Potassium 3.5 mmol/L (3.5-5.1)
[2022-05-05 07:56] LABS: HGB 8.6 gm/dL (11.4-16.0)
[2022-05-05] MEDS: APIXABAN 5 MG TAB PO SCH ×3 (08:57→20:33)
--- NOTE | 2022-05-05 09:32 | US ---
EXAMINATION TYPE: US venous doppler duplex LE DATE OF EXAM: 05/05/2022 9:03 AM COMPARISON: US bilateral 06/27/2021 CLINICAL HISTORY: rule out DVT, patient with positive VQ scan. Swelling SIDE PERFORMED: Bilateral TECHNIQUE: The lower extremity deep venous system is examined utilizing real time linear array sonog gene with graded compression, doppler sonography and color-flow sonography. VESSELS IMAGED: Common Femoral Vein Deep Femoral Vein Greater Saphenous Vein * Femoral Vein Popliteal Vein Small Saphenous Vein * Proximal Calf Veins (* superficial vessels) Right Leg: Negative for DVT Left Leg: Negative for DVT Grayscale, color doppler, spectral doppler imaging performed of the deep veins of the bilateral lower extremities. There is normal flow, compressibility, vascular waveforms. IMPRESSION: No ultrasound evidence for acute DVT in either lower extremity. No significant change fr om prior ultrasound.
[2022-05-05] MEDS: METOPROLOL TARTRATE 25 MG TAB PO SCH ×2 (09:40→20:33)
[2022-05-05] MEDS: PANTOPRAZOLE 40 MG TABLET PO SCH (09:40)
[2022-05-05] MEDS: ATORVASTATIN 40 MG TAB PO SCH (09:40)
[2022-05-05] MEDS: POTASSIUM CHLORIDE ER 20 MEQ TAB.ER PO SCH ×2 (09:41→12:38)
[2022-05-05] MEDS: SPIRONOLACTONE 25 MG TAB PO SCH (09:41)
[2022-05-05] MEDS: POTASSIUM CHLORIDE ER 10 MEQ TAB.ER.PRT PO SCH ×2 (09:41→20:33)
[2022-05-05] MEDS ORDERED: POTASSIUM CHLORIDE ER 20 MEQ TAB.ER PO STA ×2 (10:34)
--- NOTE | 2022-05-05 10:39 | P.NPCON ---
History of Present Illness - Reason for Consult acute renal failure, chronic renal failure - History of Present Illness Reason for consultation: Acute kidney injury on chronic kidney disease History of present illness: Patient is a 77-year-old female seen in renal consultation for acute kidney injury on chronic kidney disease. Patient has chronic kidney disease stage IIIB with baseline creatinine 1.5-1.6 from February 2022. Etiology is nephrosclerosis and cardiorenal syndrome. Creatinine this admission was 2.242.15 today. 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 She also had worsening edema which was progressively getting worse for about one week prior to admission. She states her oral intake has been fair. Denies vomiting or diarrhea. She is currently on IV Bumex 2 mg twice daily. Admits to good urine output. Denies use of nonsteroidals. Patient states she was taking oral diuretics at home. Denies family history of renal disease. No history of diabetes. Denies fever or chills. No cough. Blood pressure has been mostly in the systolic 90s to low 100s however lowest documented reading is 73/48. Vital signs are stable. General: Awake. No acute distress. HEENT: Head exam is unremarkable. On nasal cannula. LUNGS: Breath sounds decreased. HEART: Rate and Rhythm are regular. ABDOMEN: Soft, no distention. EXTREMITITES: 2+ edema. Past Medical History Past Medical History: Atrial Fibrillation, Blood Disorder, GERD/Reflux, Hyperlipidemia, Hypertension, Osteoarthritis (OA) Additional Past Medical History / Comment(s): Mitral regurgitation, mild to mo derate pulmonary HTN-per past medical hx/pt unaware, SOB with exertion, small hiatal hernia, current bilateral lower leg edema, occasional low back pain, arthritis bilateral hands. LOW HEMOGLOBIN- BLOOD TRANFUSIONS. 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 Past Anesthesia/Blood Transfusion Reactions: No Reported Reaction Additional Past Anesthesia/Blood Transfusion Reaction / Comment(s): no hx blood transfusion Past Psychological History: No Psychological Hx Reported Additional Psychological History / Comment(s): Pt resides with her family. Pt states she doesn't get up often. Smoking Status: Former smoker Past Alcohol Use History: None Reported Additional Past Alcohol Use History / Comment(s): Pt started smoking in 7 and quit in 1977. She was a 2ppd smoker. Past Drug Use History: None Reported - Past Family History Mother Family Medical History: Cancer Additional Family Medical History / Comment(s): bowel Father Family Medical History: COPD Additional Family Medical History / Comment(s): emphysema Brother(s) Family Medical History: Cancer Additional Family Medical History / Comment(s): Bowel cancer. Medications and Allergies Home Medications Medication Instructions Recorded Confirmed Type Metoprolol Tartrate [Lopressor] 25 mg PO BID 06/29/19 05/03/22 History Acetaminophen [Tylenol] 325 mg PO TID PRN 06/26/21 05/03/22 History Fluticasone Propion/Salmeterol 1 puff INHALATION RT-BID 06/26/21 05/03/22 History [Fluticasone-Salmeterol 250-50] Ipratropium-Albuterol Nebulize 3 ml INHALATION RT-BID PRN 06/26/21 05/03/22 History [Duoneb 0.5 mg-3 mg/3 ml Soln] Albuterol Sulfate [Ventolin HFA] 1 puff INHALATION RT-Q4H PRN 02/01/22 05/03/22 History Atorvastatin [Lipitor] 40 mg PO DAILY 02/01/22 05/03/22 History Furosemide [Lasix] 40 mg PO BID 02/01/22 05/03/22 History Potassium Chloride ER [K-Dur 10] 10 meq PO BID 02/01/22 05/03/22 History Spironolactone 25 mg PO DAILY 02/01/22 05/03/22 History Apixaban [Eliquis] 2.5 mg PO BID 30 Days #60 tab 02/06/22 05/03/22 Rx Pantoprazole [Protonix] 40 mg PO DAILY 30 Days #30 tab 02/06/22 05/03/22 Rx Wheat Dextrin [Benefiber] 1 packet PO DAILY 05/03/22 05/03/22 History metOLazone [Zaroxolyn] 5 mg PO Q48H PRN 05/03/22 05/03/22 History Allergies Allergy/AdvReac Type Severity Reaction Status Date / Time No Known Allergies Allergy Verified 05/03/22 16:47 Physical Exam Vitals: Vital Signs Temp Pulse Resp BP Pulse Ox 05/05/22 07:59 98/60 05/05/22 07:43 97.4 F L 78 18 73/48 98 05/05/22 03:55 98.1 F 79 22 99/62 95 05/04/22 23:45 97.7 F 83 24 90/60 96 05/04/22 21:00 97.8 F 88 26 H 110/65 100 05/04/22 16:00 98.1 F 82 18 103/56 97 05/04/22 14:00 77 18 05/04/22 11:47 96.6 F L 77 18 95/50 95 Intake and Output 05/04/22 05/05/22 05/05/22 22:59 06:59 14:59 Intake Total 180 200 Output Total 200 1 300 Balance - Intake: Oral 180 200 Output: Urine 200 1 300 Other: Voiding Method Bedpan Bedpan # Voids 3 1 Weight 67 kg Results - Lab Results Most recent lab results Calcium 8.9 mg/dL (8.4-10.2) 05/05/22 06:56 Magnesium 2.4 mg/dL (1.6-2.3) H 05/05/22 06:56 05/05/22 06:56 05/05/22 06:56 Assessment and Plan Plan: Assessment: 1. Acute kidney injury secondary to ATN secondary to cardiorenal syndrome. Creatinine stable at 2.15 today. UA from January 2022 was benign. 2. Chronic kidney disease stage IIIB with baseline creatinine in the range of 1.5-1.7 secondary to nephrosclerosis and cardiorenal syndrome. 3. Volume overload. 4. Acute hypoxic respiratory failure. 5. Acute on chronic diastolic CHF with mild to moderate mitral regurgitation, severe tricuspid regurgitation and pulmonary hypertension. 6. Hypervolemic hyponatremia. 7. Hypokalemia from diuresis. 8. Anemia of chronic kidney disease. Rule out iron deficiency. Plan: Maintain IV Bumex. Low-salt diet and 1200 mL fluid restriction. Replace potassium. Check UA. Check renal ultrasound. Check iron studies. Avoid nephrotoxins. Continue to monitor renal function and urine output. Add midodrine 5 mg 3 times daily. Hold for systolic blood pressure greater than 110. Thank you for the consultation. I will continue to follow the patient during her hospital stay.
--- NOTE | 2022-05-05 11:35 | P.PN ---
Subjective The patient is a 76-year-old female with a known history of mild nonobstructive coronary artery disease, atrial fibrillation on eliquis, severe pulmonary hypertension, severe mitral regurgitation, severe tricuspid regurgitation, mild nonobstructive coronary artery disease, PFO, and dyslipidemia, hypertension, history of pulmonary embolism, chronic respiratory failure where 6 L of oxygen at home.. She follows we Dr. Goldman. We have been asked to see the patient for congestive heart failure. Patient presents as department from the outpatient [facility] office after a follow up appointment with Dr. Goldman. Patient has been having symptoms of worsening shortness of breath, lower extremity edema, symptoms of orthopnea. Her diuretics have been adjusted as an outpatient without any significant improvement in her symptoms. Also recent lab workup revealed worsening renal function and elevation of her BNP. It was recommended that patient be evaluated in the emergency department and be admitted for IV diuretics. On admission patient was started on IV Bumex with improvement in her symptoms. DIAGNOSTICS * Echocardiogram 01/2022 revealed an EF of 50%, severe right ventricular dilatation with severe pulmonary hypertension, RVSP 123mmHg, severe tricuspid regurgitation, right ventricular apical hypokinesis. * Echocardiogram 06/2021 in the office patient was in normal EF, severe tricuspid regurgitation, severe pulmonary hypertension, RVSP 75 mmHg * Cardiac catheterization History: * 11/2018 revealed minimal nonobstructive coronary artery disease, cardiac output 3.4 L, pulmonary artery systolic pressure 48 with a diastolic of 18, mean of 28 mmHg. Right ventricle systolic pressure 15 with end-diastolic of 5. 2 to 3+ mitral regurgitation 05/05/2022 Patient seen and examined at bedside, she is alert, oriented x 3. No acute distress. Breathing has improved. pro BNP improved. VQ scan showed intermediate probability for PE and eliquis increased 10mg BID. hemoglobin 8.6 today. She continues to be on IV Bumex 2mg BID. Weight stable. Only documented 400mL urine output. Sodium 132, potassium 3.5, BUN 92, serum current 2.1, d-dimer 3.3 PHYSICAL EXAMINATION Blood pressure 98/60 HR 78, afebrile 98% on 6L NC. CONSTITUTIONAL: No apparent distress. HEENT: Neck Supple. JVD CHEST EXAMINATION: Lungs are crackles bilateral bases to auscultation. HEART EXAMINATION: Irregular rate and rhythm. S1, S2 heard. ABDOMEN: Soft, nontender. Positive bowel sounds. EXTREMITIES: 2+ peripheral pulses, 2-3+ bilateral lower extremity edema and no calf tenderness. NEUROLOGIC EXAMINATION: Patient is awake, alert and oriented x3. ASSESSMENT Acute on chronic heart failure with preserved ejection fraction Worsening symptoms of dyspnea with known history of severe pulmonary hypertension with most recent echo 01/2022 with RVSP 123 Long standing persistent atrial fibrillation on Eliquis History of hypertension Mild nonobstructive coronary artery disease by cardiac catheterization in 2019 Dyslipidemia PFO History of pulmonary embolism Anemia, history of anemia with no source of bleeding Intermediate probability of PE reported on VQ scan PLAN Obtain repeat Echocardiogram to evaluate right sided pressures VQ scan revealed intermediate possibility for PE, there was a concern for chronic thromboembolic pulmonary hypertension Do not feel that it is a acute pulmonary embolism at this time, will decrease Eliquis 5mg BID Pulmonary consult for evaluation as well IV Bumex 2mg BID Monitor I/Os daily weights, renal function and electrolytes Continue home statin, beta thomas and sprionolactone Will consider timing of right heart catheterization and consider Revatio after right heart cath Continue metoprolol and spironolactone Depending on her progress further recommendations will be made. Nurse practitioner note has been reviewed by physician. Signing provider agrees with the documented findings, assessment, and plan of care. Objective - Vital Signs Vital signs: Vital Signs Temp 97.4 F L 05/05/22 07:43 Pulse 78 05/05/22 07:43 Resp 18 05/05/22 07:43 BP 98/60 05/05/22 07:59 Pulse Ox 98 05/05/22 07:43 FiO2 Intake & Output 05/04/22 05/05/22 05/05/22 18:59 06:59 18:59 Intake Total 836 200 Output Total 220 201 300 Balance 616 -201 -100 Weight 67.5 kg 67 kg Intake: Oral 836 200 Output: Urine 220 201 300 Other: Voiding Method Bedpan Bedpan # Voids 2 3 1 - Labs CBC & Chem 7: 05/05/22 06:56 05/05/22 06:56 Labs: Abnormal Lab Results - Last 24 Hours (Table) 05/05/22 05/05/22 05/05/22 Range/Units 06:56 06:56 09:56 RBC 3.07 L (3.80-5.40) m/uL Hgb 8.6 L D (11.4-16.0) gm/dL Hct 27.8 L (34.0-46.0) % MCHC 30.8 L (31.0-37.0) g/dL RDW 19.9 H (11.5-15.5) % D-Dimer 3.36 H (<0.60) mg/L FEU Sodium 132 L (137-145) mmol/L Chloride 90 L (98-107) mmol/L BUN 92 H (7-17) mg/dL Creatinine 2.15 H (0.52-1.04) mg/dL Glucose 114 H (74-99) mg/dL Magnesium 2.4 H (1.6-2.3) mg/dL
--- NOTE | 2022-05-05 11:53 | CA ---
Transthoracic Echo Report Name: Selena Hinton Age: 77 Gender: F : 1945 Exam Date: 05/05/2022 10:03 Exam Location: [facility] Ht (in): 68 Wt (lb): 147 Ordering Physician: Clara Britt Attending/Referring Phys: Construction Skills Teacher Mariposa Turner, HEATHER Procedure CPT: Indications: Repeat to evaluate RVSP, right sided pressures Cardiac Hx: Technical Quality: Fair Contrast 1: Total Dose (mL): Contrast 2: Total Dose (mL): MEASUREMENTS (Male / Female) Normal Values 2D ECHO LV Diastolic Diameter PLAX 3.5 cm 4.2 - 5.9 / 3.9 - 5.3 cm LV Systolic Diameter PLAX 2.0 cm IVS Diastolic Thickness 1.0 cm 0.6 - 1.0 / 0.6 - 0.9 cm LVPW Diastolic Thickness 1.3 cm 0.6 - 1.0 / 0.6 - 0.9 cm LV Relative Wall Thickness 0.7 RV Internal Dim ED PLAX 4.6 cm LA Volume 67.7 cm??? 18 - 58 / 22 - 52 cm??? M-MODE Aortic Root Diameter MM 2.5 cm LA Systolic Diameter MM 5.0 cm LA Ao Ratio MM 2.0 AV Cusp Separation MM 1.9 cm DOPPLER LVOT Peak Velocity 51.2 cm/s LVOT Peak Gradient 1.0 mmHg TR Peak Velocity 373.8 cm/s TR Peak Gradient 55.9 mmHg Right Atrial Pressure 20.0 mmHg Pulmonary Artery Systolic Pressu 75.9 mmHg Right Ventricular Systolic Press 75.9 mmHg FINDINGS Left Ventricle Mildly increased left ventricular wall thickness. Left ventricular ejection fraction is estimated at 55%. Flattened septum in systole and diastole consistent with right ventricle pressure and volume overload. 55%. Right Ventricle Severe right ventricular dilatation. Severe pulmonary hypertension. Right Atrium Severe right atrial dilatation. Left Atrium Moderately increased left atrial volume. Mitral Valve Mitral valve thickened. Mild mitral annular calcification. Moderate mitral regurgitation. Aortic Valve Trileaflet aortic valve. No aortic valve stenosis or regurgitation. Tricuspid Valve Severe tricuspid regurgitation. Pulmonic Valve Mild pulmonic regurgitation. Pericardium Small pericardial effusion. Aorta Normal size aortic root and proximal ascending aorta. CONCLUSIONS Normal left ventricular dimension and systolic function Moderate mitral regurgitation Dilated right ventricle. Severe tricuspid regurgitation Small circumferential pericardial effusion Previewed by: Dr. Asher Moseley MD (Electronically Signed) Final Date: 05 May 2022 11:52
[2022-05-05] MEDS: MIDODRINE 5 MG TAB PO SCH ×2 (12:37→18:06)
[2022-05-05] MEDS: BUMETANIDE 0.25 MG/ML 10 ML VIAL IV SCH (12:38)
--- NOTE | 2022-05-05 14:14 | US ---
EXAMINATION TYPE: US kidneys/renal and bladder DATE OF EXAM: 05/05/2022 COMPARISON: CT abdomen November 03, 2021 CLINICAL HISTORY: rahel. Exam done portable EXAM MEASUREMENTS: Right Kidney: 8.7 x 3.6 x 4.2 cm Left Kidney: 9.5 x 3.2 x 4.2 cm Right Kidney: No hydronephrosis or masses seen Left Kidney: No hydronephrosis or masses seen Bladder: wnl Bilateral Jets seen: no Abdominal ascites seen Increased cortical echogenicity bilaterally. No hydronephrosis seen bilaterally. The urinary bladder is adequately distended. Bilateral ureteral jets are not seen. Small amount of intra-abdominal asci michelle near the liver redemonstrated. IMPRESSION: Evidence of chronic medical renal disease. No hydronephrosis noted bilaterally.
--- NOTE | 2022-05-05 15:25 | P.CNPUL ---
History of Present Illness Consult date: 05/05/22 Requesting physician: Riki Toth Reason for consult: dyspnea, hypoxemia, pulmonary hypertension Chief complaint: Shortness of breath History of present illness: This is a pleasant 77-year-old female with past medical history of peptic ulcer disease, diverticulosis ,chronic persistent atrial fibrillation on Eliquis, hypertension, hyperlipidemia, severe pulmonary hypertension, severe tricuspid regurgitation, gastroesophageal reflux disease, chronic respiratory failure, wears 6 L at home, former nicotine dependence and multiple other medical issues referred to the ER 05/03/[address] Goldman with ongoing issues of shortness of breath and dyspnea on exertion. Patient reports she had presented for her cardiology appointment, reported increased weakness, shortness of breath increasing edema. We were asked to evaluate this patient by Dr. Goldman regarding her chronic pulmonary hypertension. Note that the patient has severe pulmonary hypertension. The patient is an ex-smoker and she has history of COPD. She has seen a broadcast operations engineer, Dr. Durand, and the patient has been told not to have any significant lung disease. Nevertheless, the CAT scan of the chest that was done on previous hospitalizations, there is some obvious emphysematous changes bilaterally. The patient was treated for COVID 19 related infection/pneumonia back in June 2021 and she recovered without any major issues. She was hospitalized here back in January 2022 for similar symptoms. She has been placed on oxygen approximately 2 years ago. No previous history of DVT or pulmonary embolism. No supportive fibrosis. No history of intake of medication contributing to pulmonary hypertension. No chronic liver disease. Not in the age group for primary pulmonary hypertension and secondary causes were to be investigated. She had been seen and evaluated by Dr. Dawson. She was not noted to have any connective tissue disease or venous thrombolic disease or sleep reading disorder contributing to pulmonary hypertension. The patient is seen today in consultation on the cardiac care unit. She is sitting up in a chair at the bedside. Maintaining O2 saturations in the 90s on 6 L nasal cannula. Afebrile. Hemodynamically stable. She is dyspneic with conversation. Dyspneic with minimal exertion. Chest x-ray revealed moderate cardiomegaly. Diffuse interstitial densities in mild bilateral patchy infiltrates. Consider multifocal infectious infiltrates versus sequela of CHF with patchy pulmonary edema. No sizable pleural effusion. Ventilation perfusion test revealed intermediate probability for pulmonary embolism. Dopplers of the lower extremities were negative for DVT. She has been on Eliquis prior to admission. Ultrasound of the kidneys and bladder revealed evidence of chronic medical renal disease. No hydronephrosis noted bilaterally. White count 7.2. Hemoglobin 8.6. Platelets 230,000. Sodium 132. Potassium 3.5. BUN 92. Creatinine 2.15. BNP 7000 680. Urinalysis had been increased to 5 mg twice a day from 2.5 mg per cardiology. She is on Bumex 2 mg IV every 12 hours. Aldactone. Review of Systems REVIEW OF SYSTEMS: CONSTITUTIONAL: Denies any recent significant weight loss or weight gain. EYES: Denies change in vision. EARS, NOSE, MOUTH, THROAT: Denies headaches, denies sore throat. CARDIOVASCULAR: Denies chest pain, palpitations or syncopal episodes. RESPIRATORY: Positive for shortness of breath, no cough, congestion or hemopt ysis. GASTROINTESTINAL: Denies change in appetite, denies abdominal pain GENITOURINARY: Denies hematuria, denies infections. MUSKULOSKELETAL: Positive for increased swelling of the lower extremities. INTEGUMENTARY: Denies rash, denies eczema. NEUROLOGICAL: Denies recent memory loss, no recent seizure activity. PSYCHIATRIC: Denies anxiety, denies depression. HEMATOLOGIC/LYMPHATIC: Denies anemia, denies enlarged lymph nodes. Past Medical History Past Medical History: Atrial Fibrillation, Blood Disorder, GERD/Reflux, Hyperlipidemia, Hypertension, Osteoarthritis (OA) Additional Past Medical History / Comment(s): Mitral regurgitation, mild to moderate pulmonary HTN-per past medical hx/pt unaware, SOB with exertion, small hiatal hernia, current bilateral lower leg edema, occasional low back pain, arthritis bilateral hands. LOW HEMOGLOBIN- BLOOD TRANFUSIONS. 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 Past Anesthesia/Blood Transfusion Reactions: No Reported Reaction Additional Past Anesthesia/Blood Transfusion Reaction / Comment(s): no hx blood transfusion Past Psychological History: No Psychological Hx Reported Additional Psychological History / Comment(s): Pt resides with her family. Pt states she doesn't get up often. Smoking Status: Former smoker Past Alcohol Use History: None Reported Additional Past Alcohol Use History / Comment(s): Pt started smoking in 1959 and quit in 1977. She was a 2ppd smoker. Past Drug Use History: None Reported - Past Family History Mother Family Medical History: Cancer Additional Family Medical History / Comment(s): bowel Father Family Medical History: COPD Additional Family Medical History / Comment(s): emphysema Brother(s) Family Medical History: Cancer Additional Family Medical History / Comment(s): Bowel cancer. Medications and Allergies Home Medications Medication Instructions Recorded Confirmed Type Metoprolol Tartrate [Lopressor] 25 mg PO BID 06/29/19 05/03/22 History Acetaminophen [Tylenol] 325 mg PO TID PRN 06/26/21 05/03/22 History Fluticasone Propion/Salmeterol 1 puff INHALATION RT-BID 06/26/21 05/03/22 History [Fluticasone-Salmeterol 250-50] Ipratropium-Albuterol Nebulize 3 ml INHALATION RT-BID PRN 06/26/21 05/03/22 History [Duoneb 0.5 mg-3 mg/3 ml Soln] Albuterol Sulfate [Ventolin HFA] 1 puff INHALATION RT-Q4H PRN 02/01/22 05/03/22 History Atorvastatin [Lipitor] 40 mg PO DAILY 02/01/22 05/03/22 History Furosemide [Lasix] 40 mg PO BID 02/01/22 05/03/22 History Potassium Chloride ER [K-Dur 10] 10 meq PO BID 02/01/22 05/03/22 History Spironolactone 25 mg PO DAILY 02/01/22 05/03/22 History Apixaban [Eliquis] 2.5 mg PO BID 30 Days #60 tab 02/06/22 05/03/22 Rx Pantoprazole [Protonix] 40 mg PO DAILY 30 Days #30 tab 02/06/22 05/03/22 Rx Wheat Dextrin [Benefiber] 1 packet PO DAILY 05/03/22 05/03/22 History metOLazone [Zaroxolyn] 5 mg PO Q48H PRN 05/03/22 05/03/22 History Allergies Allergy/AdvReac Type Severity Reaction Status Date / Time No Known Allergies Allergy Verified 05/03/22 16:47 Physical Exam Vitals: Vital Signs Temp Pulse Resp BP Pulse Ox 05/05/22 11:30 97.9 F 73 20 95/61 05/05/22 07:59 98/60 05/05/22 07:43 97.4 F L 78 18 73/48 98 05/05/22 03:55 98.1 F 79 22 99/62 95 05/04/22 23:45 97.7 F 83 24 90/60 96 05/04/22 21:00 97.8 F 88 26 H 110/65 100 05/04/22 16:00 98.1 F 82 18 103/56 97 Intake and Output 05/05/22 05/05/22 05/05/22 06:59 14:59 22:59 Intake Total 200 Output Total 1 300 Balance -1 -100 Intake: Oral 200 Output: Urine 1 300 Other: Voiding Method Bedpan Bedpan # Voids 3 1 Weight 67 kg GENERAL EXAM: Alert, pleasant 77-year-old female, on 6 L nasal cannula, fairly comfortable in no apparent distress. HEAD: Normocephalic. EYES: Normal reaction of pupils, equal size. NOSE: Clear with pink turbinates. THROAT: No erythema or exudates. NECK: No masses, no JVD. CHEST: No chest wall deformity. LUNGS: Equal air entry with bilateral bases. CVS: S1 and S2 normal with no audible murmur, regular rhythm. ABDOMEN: No hepatosplenomegaly, normal bowel sounds, no guarding or rigidity. SPINE: No scoliosis or deformity SKIN: No rashes CENTRAL NERVOUS SYSTEM: No focal deficits, tone is normal in all 4 extremities. EXTREMITIES: There is 1+ peripheral edema. No clubbing, no cyanosis. Peripheral pulses are intact. Results - Laboratory Findings CBC and BMP: 05/05/22 06:56 05/05/22 06:56 PT/INR, D-dimer PT 13.1 sec (9.0-12.0) H 05/03/22 15:01 INR 1.2 (<1.2) H 05/03/22 15:01 D-Dimer 3.36 mg/L FEU (<0.60) H 05/05/22 09:56 Abnormal lab findings: Abnormal Labs 05/03/22 05/03/22 05/03/22 15:01 15:01 15:01 RBC 3.62 L Hgb 10.2 L Hct 32.3 L MCHC RDW 19.9 H PT 13.1 H INR 1.2 H D-Dimer Sodium 135 L Potassium Chloride 86 L BUN 91 H Creatinine 2.24 H Glucose 110 H Plasma Lactic Acid Bony Magnesium Total Bilirubin 2.3 H Troponin I 05/03/22 05/03/22 05/04/22 15:01 15:01 08:02 RBC Hgb Hct MCHC RDW PT INR D-Dimer Sodium 134 L Potassium 3.0 L Chloride 88 L BUN 96 H Creatinine 2.13 H Glucose 122 H Plasma Lactic Acid Bony 4.4 H* Magnesium Total Bilirubin Troponin I 0.036 H* 05/05/22 05/05/22 05/05/22 06:56 06:56 09:56 RBC 3.07 L Hgb 8.6 L D Hct 27.8 L MCHC 30.8 L RDW 19.9 H PT INR D-Dimer 3.36 H Sodium 132 L Potassium Chloride 90 L BUN 92 H Creatinine 2.15 H Glucose 114 H Plasma Lactic Acid Bony Magnesium 2.4 H Total Bilirubin Troponin I - Diagnostic Findings Chest x-ray: image reviewed Assessment and Plan Assessment: Acute on chronic hypoxemic respiratory failure secondary to an acute ex acerbation of chronic diastolic congestive heart failure Severe pulmonary hypertension with an RVSP of 76 mmHg with severe right atrial and ventricular dilatation of unclear etiology. Other comorbid conditions are not present as the patient does not have any connective tissue disease or venous thrombolic disease or sleep breathing disorder to contributing to her pulmonary hypertension. Shunting whether his intracardiac shunting versus intracardiac cannot be completely ruled out. The patient's symptoms are chronic and she will require further investigation regarding her pulmonary hypertension which may include pft, hrct of the chest, right-sided cardiac cath and decide if anything can be done to help her out with her chronic hypoxemia and pulmonary hypertension. She may benefit from outpatient referral to the [facility] pulmonary hypertension clinic. Valvular heart disease with moderate mitral regurgitation with severe tricuspid regurgitation Chronic hypoxic respiratory failure, as the patient is normally on 6 L of oxygen by nasal cannula since 2019. Coronavirus associated pneumonia June 2021, recovered Chronic pulmonary hypertension, with severe dilatation of the RV and significant pulmonary hypertension History of chronic atrial fibrillation. Rate is controlled and the patient is Eliquis is long-term anticoagulation Hypertension COPD History of acute anemia CKD stage III Plan: The patient was seen and evaluated Chest x-ray, VQ scan, Dopplers, echocardiogram, medications and labs reviewed Continue diuretics for now Remains on anticoagulation in the form of Eliquis May benefit from a referral to the [facility] pulmonary hypertension clinic following discharge Would benefit from outpatient workup including full pulmonary function testing, high-resolution computed tomography scan of the chest We'll continue to follow and make further recommendations based on her clinical status I have personally seen and examined the patient, performed the documentation and the assessment and plan as written. Number of minutes spent on the visit: 20.
[2022-05-05 15:57] LABS: Appearance,Urine Clear (Clear); Bilirubin,Urine Negative (Negative); Blood,Urine Negative (Negative); Color,Urine Yellow; Glucose,Urine (UA) Trace (Negative); Ketones,Urine Negative (Negative); Leukocyte Esterase,Urine Negative (Negative); Nitrite,Urine Negative (Negative); PH, Urine 7.5 (5.0-8.0); Protein,Urine Negative (Negative); Specific Gravity,Urine 1.008 (1.001-1.035); Urobilinogen,Urine <2.0 mg/dL (<2.0)
[2022-05-05 18:50] LABS: Anisocytosis Slight; HCT 29.1 % (34.0-46.0); HGB 9.2 gm/dL (11.4-16.0); Hypochromasia Marked; MCHC 31.5 g/dL (31.0-37.0); Mean Platelet Volume 8.7; Platelet Count 249 k/uL (150-450); RBC 3.27 m/uL (3.80-5.40); RDW 19.2 % (11.5-15.5); WBC 8.3 k/uL (3.8-10.6)
[2022-05-05] MEDS: polyethylene glycoL 3350 17 GM POWD.PACK PO SCH (20:33)
[2022-05-06] MEDS: BUMETANIDE 0.25 MG/ML 10 ML VIAL IV SCH ×3 (00:12→22:45)
[2022-05-06] MEDS: MIDODRINE 5 MG TAB PO SCH ×3 (06:28→16:54)
[2022-05-06] MEDS: ATORVASTATIN 40 MG TAB PO SCH (07:55)
[2022-05-06] MEDS: PANTOPRAZOLE 40 MG TABLET PO SCH (07:55)
[2022-05-06] MEDS: METOPROLOL TARTRATE 25 MG TAB PO SCH ×2 (07:55→20:53)
[2022-05-06] MEDS: SPIRONOLACTONE 25 MG TAB PO SCH (07:55)
[2022-05-06] MEDS: POTASSIUM CHLORIDE ER 10 MEQ TAB.ER.PRT PO SCH ×2 (07:55→20:53)
[2022-05-06] MEDS: polyethylene glycoL 3350 17 GM POWD.PACK PO SCH (07:55)
[2022-05-06] MEDS: APIXABAN 5 MG TAB PO SCH (07:55)
[2022-05-06 08:36] LABS: Calcium 8.7 mg/dL (8.4-10.2); Potassium 4.1 mmol/L (3.5-5.1)
[2022-05-06] MEDS ORDERED: ALPRAZolam 0.25 MG TAB PO PRN (09:49)
[2022-05-06] MEDS ORDERED: ALPRAZolam 0.5 MG TAB PO PRN (09:49)
[2022-05-06] MEDS: SILDENAFIL 20 MG TAB PO SCH ×3 (10:06→20:53)
--- NOTE | 2022-05-06 11:11 | P.PN ---
Subjective The patient is a 76-year-old female with a known history of mild nonobstructive coronary artery disease, atrial fibrillation on eliquis, severe pulmonary hypertension, severe mitral regurgitation, severe tricuspid regurgitation, mild nonobstructive coronary artery disease, PFO, and dyslipidemia, hypertension, history of pulmonary embolism, chronic respiratory failure where 6 L of oxygen at home.. She follows we Dr. Goldman. We have been asked to see the patient for congestive heart failure. Patient presents as department from the outpatient [facility] office after a follow up appointment with Dr. Goldman. Patient has been having symptoms of worsening shortness of breath, lower extremity edema, symptoms of orthopnea. Her diuretics have been adjusted as an outpatient without any significant improvement in her symptoms. Also recent lab workup revealed worsening renal function and elevation of her BNP. It was recommended that patient be evaluated in the emergency department and be admitted for IV diuretics. On admission patient was started on IV Bumex with improvement in her symptoms. DIAGNOSTICS * Echocardiogram 01/2022 revealed an EF of 50%, severe right ventricular dilatation with severe pulmonary hypertension, RVSP 123mmHg, severe tricuspid regurgitation, right ventricular apical hypokinesis. * Echocardiogram 06/2021 in the office patient was in normal EF, severe tricuspid regurgitation, severe pulmonary hypertension, RVSP 75 mmHg * Cardiac catheterization History: * 11/2018 revealed minimal nonobstructive coronary artery disease, cardiac output 3.4 L, pulmonary artery systolic pressure 48 with a diastolic of 18, mean of 28 mmHg. Right ventricle systolic pressure 15 with end-diastolic of 5. 2 to 3+ mitral regurgitation 05/06/2022 Patient seen and examined at bedside, she is alert, oriented x 3. No acute distress. Breathing has improved. LE edema has improved. She continues to be on IV Bumex 2mg BID. Weight stable. Only documented 300mL urine output, patient endorses frequent urination. Weight decrease noted. Sodium 136, potassium 4.1, BUN 90, syncope and 2.15(stable from yesterday 2.15) Echo revealed EF 55%, severe pulmonary hypertension, RVSP is 75 mmHg, dilated RV, moderate mitral regurgitation, small circumferential pericardial effusion. PHYSICAL EXAMINATION Vitals reviewed CONSTITUTIONAL: No apparent distress. HEENT: Neck Supple. JVD CHEST EXAMINATION: Lungs are diminished with mild crackles bilateral bases to auscultation. HEART EXAMINATION: Irregular rate and rhythm. S1, S2 heard. ABDOMEN: Soft, nontender. Positive bowel sounds. EXTREMITIES: 2+ peripheral pulses, 2+ bilateral lower extremity edema and no calf tenderness. NEUROLOGIC EXAMINATION: Patient is awake, alert and oriented x3. ASSESSMENT Acute on chronic heart failure with preserved ejection fraction Worsening symptoms of dyspnea with known history of severe pulmonary hypertension with most recent echo 01/2022 with RVSP 123 Long standing persistent atrial fibrillation on Eliquis History of hypertension Mild nonobstructive coronary artery disease by cardiac catheterization in 2019 Dyslipidemia PFO History of pulmonary embolism Anemia, history of anemia with no source of bleeding Intermediate probability of PE reported on VQ scan PLAN Plan for right heart catheterization with Dr. Goldman tomorrow NPO after midnight Start Revatio 20mg TID I have discussed the risks, benefits and alternative therapies for the above- mentioned procedure and for both sedation/analgesia as well as necessary blood product administration, if indicated, as they pertain to this patient. The patient has indicated understanding and acceptance of the risks and procedures discussed. Questions have been answered appropriately and she is agreeable to move forward with the above-stated procedure. Echocardiogram revealed RVSP 75mmHg VQ scan revealed intermediate possibility for PE, Do not feel that it is a acute pulmonary embolism at this time, will continue Eliquis 5mg BID Pulmonary recommendations appreciated IV Bumex 2mg BID Monitor I/Os daily weights, renal function and electrolytes Monitor CBC Continue home statin, beta thomas and sprionolactone Continue metoprolol and spironolactone Depending on her progress further recommendations will be made. Nurse practitioner note has been reviewed by physician. Signing provider agrees with the documented findings, assessment, and plan of care. Objective - Vital Signs Vital signs: Vital Signs Temp 97.7 F 05/06/22 07:51 Pulse 75 05/06/22 08:00 Resp 18 05/06/22 07:51 BP 88/54 05/06/22 10:05 Pulse Ox 96 05/06/22 07:51 FiO2 Intake & Output 05/05/22 05/06/22 05/06/22 18:59 06:59 18:59 Intake Total 200 10 237 Output Total 300 400 Balance -100 10 -163 Weight 66.8 kg Intake: IV 10 Invasive Line 2 10 Oral 200 237 Output: Urine 300 400 Other: Voiding Method Bedpan Bedpan Toilet Bedpan # Voids 1 - Labs CBC & Chem 7: 05/05/22 18:19 05/06/22 07:56 Labs: Abnormal Lab Results - Last 24 Hours (Table) 05/05/22 05/05/22 05/06/22 Range/Units 14:00 18:19 07:56 RBC 3.27 L (3.80-5.40) m/uL Hgb 9.2 L (11.4-16.0) gm/dL Hct 29.1 L (34.0-46.0) % RDW 19.2 H (11.5-15.5) % Sodium 136 L (137-145) mmol/L Chloride 93 L (98-107) mmol/L Carbon Dioxide 31 H (22-30) mmol/L BUN 90 H (7-17) mg/dL Creatinine 2.15 H (0.52-1.04) mg/dL Glucose 125 H (74-99) mg/dL Magnesium (1.6-2.3) mg/dL Urine Glucose (UA) Trace H (Negative) 05/06/22 Range/Units 07:56 RBC (3.80-5.40) m/uL Hgb (11.4-16.0) gm/dL Hct (34.0-46.0) % RDW (11.5-15.5) % Sodium (137-145) mmol/L Chloride (98-107) mmol/L Carbon Dioxide (22-30) mmol/L BUN (7-17) mg/dL Creatinine (0.52-1.04) mg/dL Glucose (74-99) mg/dL Magnesium 2.4 H (1.6-2.3) mg/dL Urine Glucose (UA) (Negative)
--- NOTE | 2022-05-06 11:24 | P.PN ---
Subjective Patient is seen in follow-up for acute kidney injury on chronic kidney disease. Renal function stable. Good urine output. Edema improving. No chest pain or shortness of breath. Family present at bedside. Vital signs are stable. Blood pressure on the lower side. General: Awake. No acute distress. HEENT: Head exam is unremarkable. On nasal cannula. LUNGS: Breath sounds decreased. HEART: Rate and Rhythm are regular. ABDOMEN: Soft, no distention. EXTREMITITES: 1+ edema. Objective - Vital Signs Vital signs: Vital Signs Temp 97.7 F 05/06/22 07:51 Pulse 75 05/06/22 08:00 Resp 18 05/06/22 07:51 BP 88/54 05/06/22 10:05 Pulse Ox 96 05/06/22 07:51 FiO2 Intake & Output 05/05/22 05/06/22 05/06/22 18:59 06:59 18:59 Intake Total 200 10 237 Output Total 300 400 Balance -100 10 -163 Weight 66.8 kg Intake: IV 10 Invasive Line 2 10 Oral 200 237 Output: Urine 300 400 Other: Voiding Method Bedpan Bedpan Toilet Bedpan # Voids 1 - Labs CBC & Chem 7: 05/05/22 18:19 05/06/22 07:56 Labs: Abnormal Lab Results - Last 24 Hours (Table) 05/05/22 05/05/22 05/06/22 Range/Units 14:00 18:19 07:56 RBC 3.27 L (3.80-5.40) m/uL Hgb 9.2 L (11.4-16.0) gm/dL Hct 29.1 L (34.0-46.0) % RDW 19.2 H (11.5-15.5) % Sodium 136 L (137-145) mmol/L Chloride 93 L (98-107) mmol/L Carbon Dioxide 31 H (22-30) mmol/L BUN 90 H (7-17) mg/dL Creatinine 2.15 H (0.52-1.04) mg/dL Glucose 125 H (74-99) mg/dL Magnesium (1.6-2.3) mg/dL Urine Glucose (UA) Trace H (Negative) 05/06/22 Range/Units 07:56 RBC (3.80-5.40) m/uL Hgb (11.4-16.0) gm/dL Hct (34.0-46.0) % RDW (11.5-15.5) % Sodium (137-145) mmol/L Chloride (98-107) mmol/L Carbon Dioxide (22-30) mmol/L BUN (7-17) mg/dL Creatinine (0.52-1.04) mg/dL Glucose (74-99) mg/dL Magnesium 2.4 H (1.6-2.3) mg/dL Urine Glucose (UA) (Negative) Assessment and Plan Plan: Assessment: 1. Acute kidney injury secondary to ATN secondary to cardiorenal syndrome. Creatinine stable at 2.15 today. UA benign. No hydronephrosis noted on kidney ultrasound. 2. Chronic kidney disease stage IIIB with baseline creatinine in the range of 1.5-1.7 secondary to nephrosclerosis and cardiorenal syndrome. 3. Volume overload. Improving with diuresis. 4. Acute hypoxic respiratory failure. 5. Acute on chronic diastolic CHF with mild to moderate mitral regurgitation, severe tricuspid regurgitation and pulmonary hypertension. 6. Hypervolemic hyponatremia. Better. 7. Hypokalemia from diuresis. Replace. Better. 8. Anemia of chronic kidney disease. Rule out iron deficiency. Plan: Maintain IV Bumex. Low-salt diet and 1200 mL fluid restriction. Check iron studies. Avoid nephrotoxins. Continue to monitor renal function and urine output. Increase dose of midodrine. Hold for systolic blood pressure greater than 110. Check a.m. cortisol level. Plan for a right heart cath tomorrow. Will hold Bumex prior to the catheterization in the morning. Risk of worsening renal function, potentially requiring renal replacement therapy, post-IV contrast exposure was discussed with the patient. She understands.
--- NOTE | 2022-05-06 11:39 | P.PN ---
Subjective Progress Note Date: 05/06/22 This is a pleasant 77-year-old female with past medical history of peptic ulcer disease, diverticulosis ,chronic persistent atrial fibrillation on Eliquis, hypertension, hyperlipidemia, severe pulmonary hypertension, severe tricuspid regurgitation, gastroesophageal reflux disease, chronic respiratory failure, wears 6 L at home, former nicotine dependence and multiple other medical issues referred to the ER 05/03/[address] Goldman with ongoing issues of shortness of breath and dyspnea on exertion. Patient reports she had presented for her cardiology appointment, reported increased weakness, shortness of breath increasing edema. We were asked to evaluate this patient by Dr. Goldman regarding her chronic pulmonary hypertension. Note that the patient has severe pulmonary hypertension. The patient is an ex-smoker and she has history of COPD. She has seen a hobber, Dr. Durand, and the patient has been told not to have any significant lung disease. Nevertheless, the CAT scan of the est that was done on previous hospitalizations, there is some obvious emphysematous changes bilaterally. The patient was treated for COVID 19 related infection/pneumonia back in June 2021 and she recovered without any major issues. She was hospitalized here back in January 2022 for similar symptoms. She has been placed on oxygen approximately 2 years ago. No previous history of DVT or pulmonary embolism. No supportive fibrosis. No history of intake of medication contributing to pulmonary hypertension. No chronic liver disease. Not in the age group for primary pulmonary hypertension and secondary causes were to be investigated. She had been seen and evaluated by Dr. Dawson. She was not noted to have any connective tissue disease or venous thrombolic disease or sleep reading disorder contributing to pulmonary hypertension. The patient is seen today in consultation on the cardiac care unit. She is sitting up in a chair at the bedside. Maintaining O2 saturations in the 90s on 6 L nasal cannula. Afebrile. Hemodynamically stable. She is dyspneic with conversation. Dyspneic with minimal exertion. Chest x-ray revealed moderate cardiomegaly. Diffuse interstitial densities in mild bilateral patchy infiltrates. Consider multifocal infectious infiltrates versus sequela of CHF with patchy pulmonary edema. No sizable pleural effusion. Ventilation perfusion test revealed intermediate probability for pulmonary embolism. Dopplers of the lower extremities were negative for DVT. She has been on Eliquis prior to admission. Ultrasound of the kidneys and bladder revealed evidence of chronic medical renal disease. No hydronephrosis noted bilaterally. White count 7.2. Hemoglobin 8.6. Platelets 230,000. Sodium 132. Potassium 3.5. BUN 92. Creatinine 2.15. BNP 7000 680. Urinalysis had been increased to 5 mg twice a day from 2.5 mg per cardiology. She is on Bumex 2 mg IV every 12 hours. Aldactone. The patient is seen today 05/06/2022 in follow-up on the selective care unit. She is currently resting comfortably in bed. Awake and alert in no acute dis tress. She denies any worsening shortness of breath, cough or congestion. She is maintaining O2 saturations in the 90s on her usual dose of oxygen at 6 L/m per nasal cannula. Sodium 136. Potassium 4.1. BUN 90. Creatinine 2.15. Glucose 125. She remains on Bumex. Plan is for right heart catheterization tomorrow with cardiology. She's been initiated on Revatio. Objective - Vital Signs Vital signs: Vital Signs Temp 97.7 F 05/06/22 07:51 Pulse 75 05/06/22 08:00 Resp 18 05/06/22 07:51 BP 88/54 05/06/22 10:05 Pulse Ox 96 05/06/22 07:51 FiO2 Intake & Output 05/05/22 05/06/22 05/06/22 18:59 06:59 18:59 Intake Total 200 10 237 Output Total 300 400 Balance -100 10 -163 Weight 66.8 kg Intake: IV 10 Invasive Line 2 10 Oral 200 237 Output: Urine 300 400 Other: Voiding Method Bedpan Bedpan Toilet Bedpan # Voids 1 - Exam GENERAL EXAM: Alert, 77-year-old female, on 6 L nasal cannula, fairly comfortable in no apparent distress. HEAD: Normocephalic. EYES: Normal reaction of pupils, equal size. NOSE: Clear with pink turbinates. THROAT: No erythema or exudates. NECK: No masses, no JVD. CHEST: No chest wall deformity. LUNGS: Equal air entry with crackles at the bilateral bases. CVS: S1 and S2 normal with no audible murmur, regular rhythm. ABDOMEN: No hepatosplenomegaly, normal bowel sounds, no guarding or rigidity. SPINE: No scoliosis or deformity SKIN: No rashes CENTRAL NERVOUS SYSTEM: No focal deficits, tone is normal in all 4 extremities. EXTREMITIES: There is 1+ peripheral edema. No clubbing, no cyanosis. Peripheral pulses are intact. - Labs CBC & Chem 7: 05/05/22 18:19 05/06/22 07:56 Labs: Abnormal Lab Results - Last 24 Hours (Table) 05/05/22 05/05/22 05/06/22 Range/Units 14:00 18:19 07:56 RBC 3.27 L (3.80-5.40) m/uL Hgb 9.2 L (11.4-16.0) gm/dL Hct 29.1 L (34.0-46.0) % RDW 19.2 H (11.5-15.5) % Sodium 136 L (137-145) mmol/L Chloride 93 L (98-107) mmol/L Carbon Dioxide 31 H (22-30) mmol/L BUN 90 H (7-17) mg/dL Creatinine 2.15 H (0.52-1.04) mg/dL Glucose 125 H (74-99) mg/dL Magnesium (1.6-2.3) mg/dL Urine Glucose (UA) Trace H (Negative) 05/06/22 Range/Units 07:56 RBC (3.80-5.40) m/uL Hgb (11.4-16.0) gm/dL Hct (34.0-46.0) % RDW (11.5-15.5) % Sodium (137-145) mmol/L Chloride (98-107) mmol/L Carbon Dioxide (22-30) mmol/L BUN (7-17) mg/dL Creatinine (0.52-1.04) mg/dL Glucose (74-99) mg/dL Magnesium 2.4 H (1.6-2.3) mg/dL Urine Glucose (UA) (Negative) Assessment and Plan Assessment: Acute on chronic hypoxemic respiratory failure secondary to an acute exacerbation of chronic diastolic congestive heart failure Severe pulmonary hypertension with an RVSP of 76 mmHg with severe right atrial and ventricular dilatation of unclear etiology. Other comorbid conditions are not present as the patient does not have any connective tissue disease or venous thrombolic disease or sleep breathing disorder to contributing to her pulmonary hypertension. Shunting whether his intracardiac shunting versus intracardiac cannot be completely ruled out. The patient's symptoms are chronic and she will require further investigation regarding her pulmonary hypertension which may include pft, hrct of the chest, right-sided cardiac cath and decide if anything can be done to help her out with her chronic hypoxemia and pulmonary hypertension. She may benefit from outpatient referral to the [facility] pulmonary hypertension clinic. Valvular heart disease with moderate mitral regurgitation with severe tricuspid regurgitation Chronic hypoxic respiratory failure, as the patient is normally on 6 L of oxygen by nasal cannula since 2019. Coronavirus associated pneumonia June 2021, recovered Chronic pulmonary hypertension, with severe dilatation of the RV and significant pulmonary hypertension History of chronic atrial fibrillation. Rate is controlled and the patient is Eliquis is long-term anticoagulation Hypertension COPD History of acute anemia CKD stage III Plan: The patient was seen and evaluated Medications and labs reviewed Continue diuretics for now Remains on anticoagulation in the form of Eliquis Plan is for a right heart catheterization tomorrow, initiated on Revatio We'll continue to follow I have personally seen and examined the patient, performed the documentation and the assessment and plan as written. Number of minutes spent on the visit: 10.
[2022-05-06] MEDS: diphenhydrAMINE 25 MG CAP PO PRN (11:53)
[2022-05-06 14:18] VITALS: BMI 22.4
--- NOTE | 2022-05-06 17:51 | P.PN ---
Subjective Progress Note Date: 05/05/22 H&P Date: 05/04/22 Chief Complaint: Worsening exertional dyspnea, bilateral lower extremity edema This is a 77-year-old female with past medical history of peptic ulcer disease, diverticulosis ,chronic persistent atrial fibrillation on Eliquis, hypertension, hyperlipidemia, severe pulmonary hypertension, severe tricuspid regurgitation, gastroesophageal reflux disease, chronic respiratory failure, wears 6 L at home, former nicotine dependenceand multiple other medical issues referred to the ER per cardiology yesterday. Diuretics had been adjusted outpatient, without improvement. Patient reports she had worsening exertional dyspnea over the last few months accompanied by lower extremity edema denies chest pain, palpitations or cough.Reports compliance with med regimen. IV diuretics initiated in the ER. Echo 02/02/2022 reported normal LV systolic function, severe right ventricular dilation with severe pulmonary hypertension, right ventricular apical hypokinesis, severe tricuspid regurgitation. EKG reporting atrial fibrillation, nonspecific T-waves, incomplete right bundle branch block. Troponin 0.036, 0.030, 0.031. ProBNP 9160. Chest x-ray reporting moderate cardiomegaly, diffuse interstitial densities with mild patchy bilateral infiltrates.Sodium 134, potassium 3-receiving supplementation, BUN 96, creatinine decreased to 2.1, hemoglobin 10.2. 05/05/2022 VQ scan reported intermittently probability for PE. Venous duplex pending.d-dimer pending .echo pending. Denies rectal bleeding, denies black stools .reports no bowel movement since admission . Diuresing on Bumex with 24- hour I&O reporting reporting decrease in weight of 0.5 kg ,breathing easier .blood pressures soft, maintaining O2 sats in the mid 90s on 6 L nasal cannula. Hemoglobin decreased to 8.6, BUN 92, creatinine 2.15 .echo pending . Objective - Vital Signs Vital signs: Vital Signs Temp 98.3 F 05/05/22 16:00 Pulse 94 05/05/22 16:00 Resp 18 05/05/22 16:00 BP 93/60 05/05/22 16:00 Pulse Ox 98 05/05/22 16:00 FiO2 Intake & Output 05/04/22 05/05/22 05/05/22 18:59 06:59 18:59 Intake Total 836 200 Output Total 220 201 300 Balance 616 -201 -100 Weight 67.5 kg 67 kg Intake: Oral 836 200 Output: Urine 220 201 300 Other: Voiding Method Bedpan Bedpan Bedpan # Voids 2 3 1 - Exam - Exam PHYSICAL EXAM: VITAL SIGNS: As above GENERAL: Alert and oriented 3, Sitting up in bed, no acute distress HEENT: Conjunctivae normal. eyes normal. NECK: Supple, + JVD. CARDIOVASCULAR: S1, S2, irregular. Systolic murmur. RESPIRATION: Breath sounds diminished in the bases.CTA. ABDOMEN: Soft, nontender . No guarding. no masses palpable.Bowel sounds heard. LEGS: Positive edema, no clubbing, no cyanosis, +DP NERVOUS SYSTEM: Cranial N 2-12 grossly normal. No focal deficits. Strength and sensation grossly intact. Skin: Warm and dry, no rash - Labs CBC & Chem 7: 05/05/22 18:19 05/06/22 07:56 Labs: Abnormal Lab Results - Last 24 Hours (Table) 05/05/22 05/05/22 05/05/22 Range/Units 06:56 06:56 09:56 RBC 3.07 L (3.80-5.40) m/uL Hgb 8.6 L D (11.4-16.0) gm/dL Hct 27.8 L (34.0-46.0) % MCHC 30.8 L (31.0-37.0) g/dL RDW 19.9 H (11.5-15.5) % D-Dimer 3.36 H (<0.60) mg/L FEU Sodium 132 L (137-145) mmol/L Chloride 90 L (98-107) mmol/L BUN 92 H (7-17) mg/dL Creatinine 2.15 H (0.52-1.04) mg/dL Glucose 114 H (74-99) mg/dL Magnesium 2.4 H (1.6-2.3) mg/dL Urine Glucose (UA) (Negative) 05/05/22 Range/Units 14:00 RBC (3.80-5.40) m/uL Hgb (11.4-16.0) gm/dL Hct (34.0-46.0) % MCHC (31.0-37.0) g/dL RDW (11.5-15.5) % D-Dimer (<0.60) mg/L FEU Sodium (137-145) mmol/L Chloride (98-107) mmol/L BUN (7-17) mg/dL Creatinine (0.52-1.04) mg/dL Glucose (74-99) mg/dL Magnesium (1.6-2.3) mg/dL Urine Glucose (UA) Trace H (Negative) Assessment and Plan Assessment: Acute on chronic congestive heart failure, diastolic dysfunction, preserved EF Chronic hypoxic respiratory failure, wears 6 L nasal cannula O2 at home Acute renal failure. Chronic kidney disease stage III History of Covid-19 pneumonia, 06/28 Chronic Pulmonary hypertension, severe Chronic persistent atrial fibrillation, anticoagulated on Eliquis CAD Hypertension Severe tricuspid regurgitation Former nicotine dependence Plan: Continue on current medication regime ,monitoring and symptomatic treatment. Fluid restrictions.Diuretics-IVP Bumex.Soft blood pressures, midodrine added to med regimen as per nephrology.Close monitoring of renal function with repeat labs ordered for a.m. Echo, venous Dopplers pending. Cardiology discussing potential cardiac catheterization. Pulmonary consult in place, recommendations pending. Repeat hemoglobin later this afternoon. MiraLAX added to med regimen for constipation. The impression and plan of care has been dictated as directed. : I performed a history and examination of this patient, discussed the same with the dictator. I agree with the dictator's note ,documented as a scribe. Any a dditional findings or plans will be noted.
[2022-05-06 19:37] LABS: % Iron Saturation 11.83 (12.00-45.00)
[2022-05-07] MEDS ORDERED: SODIUM CHLORIDE 0.9% 1,000 ML in EMPTY BAG 1 BAG IV ONE
[2022-05-07] MEDS: MIDODRINE 5 MG TAB PO SCH ×3 (06:25→16:41)
[2022-05-07] MEDS ORDERED: HEPARIN SODIUM,PORCINE 2,500 UNIT in SODIUM CHLORIDE 0.9% 250 ML IRRIGATION PRN (07:00)
[2022-05-07] MEDS ORDERED: HEPARIN SODIUM,PORCINE 10,000 UNIT in SODIUM CHLORIDE 0.9% 1,000 ML IRRIGATION PRN (07:00)
[2022-05-07] MEDS: polyethylene glycoL 3350 17 GM POWD.PACK PO SCH (07:39)
[2022-05-07] MEDS: METOPROLOL TARTRATE 25 MG TAB PO SCH ×2 (07:46→20:51)
[2022-05-07] MEDS: ATORVASTATIN 40 MG TAB PO SCH (07:46)
[2022-05-07] MEDS: PANTOPRAZOLE 40 MG TABLET PO SCH (07:46)
[2022-05-07] MEDS: POTASSIUM CHLORIDE ER 10 MEQ TAB.ER.PRT PO SCH (07:46)
[2022-05-07] MEDS: SILDENAFIL 20 MG TAB PO SCH ×3 (07:46→20:51)
[2022-05-07] MEDS: SPIRONOLACTONE 25 MG TAB PO SCH (07:46)
[2022-05-07] MEDS: diphenhydrAMINE 25 MG CAP PO PRN (07:50)
[2022-05-07] MEDS: BUMETANIDE 0.25 MG/ML 10 ML VIAL IV SCH ×2 (09:01→11:48)
[2022-05-07 09:33] LABS: Anisocytosis Slight; Basophils # (A) 0.1 k/uL (0-0.2); Basophils % (A) 2 %; Eosinophils # (A) 0.3 k/uL (0-0.7); Eosinophils % (A) 4 %; HCT 27.1 % (34.0-46.0); HGB 8.4 gm/dL (11.4-16.0); Hypochromasia Marked; Lymphocytes # (A) 1.3 k/uL (1.0-4.8); Lymphocytes % (A) 17 %; MCV 90.3 fL (80.0-100.0); Mean Platelet Volume 8.6; Monocytes # (A) 0.4 k/uL (0-1.0); Monocytes % (A) 5 %; Neutrophils # (A) 5.4 k/uL (1.3-7.7); Neutrophils % (A) 71 %; Platelet Count 253 k/uL (150-450); RDW 19.5 % (11.5-15.5); WBC 7.7 k/uL (3.8-10.6)
[2022-05-07 10:07] LABS: Calcium 9.2 mg/dL (8.4-10.2); Magnesium 2.4 mg/dL (1.6-2.3); Potassium 4.5 mmol/L (3.5-5.1)
--- NOTE | 2022-05-07 10:24 | P.PN ---
Subjective Patient is seen in follow-up for acute kidney injury on chronic kidney disease. Renal function a little worse today. Good urine output. Scheduled for cardiac cath today. Lasix was held last night and she is currently on normal saline at 100 mL an hour per cardiology. Vital signs are stable. Blood pressure on the lower side. General: Awake. No acute distress. HEENT: Head exam is unremarkable. On nasal cannula. LUNGS: Breath sounds decreased. HEART: Rate and Rhythm are regular. ABDOMEN: Soft, no distention. EXTREMITITES: 1+ edema. Objective - Vital Signs Vital signs: Vital Signs Temp 97.7 F 05/07/22 07:42 Pulse 88 05/07/22 07:42 Resp 20 05/07/22 07:42 BP 90/55 05/07/22 07:42 Pulse Ox 95 05/07/22 07:42 FiO2 Intake & Output 05/06/22 05/07/22 05/07/22 18:59 06:59 18:59 Intake Total 1014 10 Output Total 900 600 Balance 114 -590 Weight 66.8 kg Intake: IV 10 Invasive Line 2 10 Oral 1014 Output: Urine 900 600 Other: Voiding Method Toilet Toilet Toilet Bedpan Bedpan Bedpan # Voids 1 # Bowel Movements 1 - Labs CBC & Chem 7: 05/07/22 08:24 05/07/22 08:24 Labs: Abnormal Lab Results - Last 24 Hours (Table) 05/06/22 05/07/22 05/07/22 Range/Units 07:56 08:24 08:24 RBC 3.00 L (3.80-5.40) m/uL Hgb 8.4 L (11.4-16.0) gm/dL Hct 27.1 L (34.0-46.0) % RDW 19.5 H (11.5-15.5) % Sodium 135 L (137-145) mmol/L Chloride 94 L (98-107) mmol/L BUN 88 H (7-17) mg/dL Creatinine 2.44 H (0.52-1.04) mg/dL Glucose 110 H (74-99) mg/dL Magnesium 2.4 H (1.6-2.3) mg/dL Iron 49 L (50-170) ug/dL % Saturation 11.83 L (12.00-45.00) Assessment and Plan Plan: Assessment: 1. Acute kidney injury secondary to ATN secondary to cardiorenal syndrome. Renal function worse. Creatinine 2.44. UA benign. No hydronephrosis noted on kidney ultrasound. 2. Chronic kidney disease stage IIIB with baseline creatinine in the range of 1.5-1.7 secondary to nephrosclerosis and cardiorenal syndrome. 3. Volume overload. Improved with diuresis. 4. Acute hypoxic respiratory failure. 5. Acute on chronic diastolic CHF with mild to moderate mitral regurgitation, severe tricuspid regurgitation and pulmonary hypertension. 6. Hypervolemic hyponatremia. Stable. 7. Hypokalemia from diuresis. Replaced. Better. 8. Anemia of chronic kidney disease. Iron deficiency noted. Plan: Bumex held last night. Resume tonight. Decrease rate of normal saline to 50 mL an hour. Hep-Lock IV fluids 6 hours after cardiac catheterization. Low-salt diet and 1200 mL fluid restriction. Add IV iron. Avoid nephrotoxins. Continue to monitor renal function and urine output. Maintain midodrine. Hold for systolic blood pressure greater than 110. Follow-up cortisol level. Stop maintenance potassium supplementation for now. Cardiac catheterization today. Risk of worsening renal function, potentially requiring renal replacement therapy, post-IV contrast exposure was discussed with the patient. She understands.
[2022-05-07] MEDS: SODIUM FERRIC GLUCONAT-SUCROSE 125 MG in SODIUM CHLORIDE 0.9% 100 ML IVPB SCH (11:21)
--- NOTE | 2022-05-07 11:58 | P.PN ---
Subjective The patient is a 76-year-old female with a known history of mild nonobstructive coronary artery disease, atrial fibrillation on eliquis, severe pulmonary hypertension, severe mitral regurgitation, severe tricuspid regurgitation, mild nonobstructive coronary artery disease, PFO, and dyslipidemia, hypertension, history of pulmonary embolism, chronic respiratory failure where 6 L of oxygen at home.. She follows we Dr. Goldman. We have been asked to see the patient for congestive heart failure. Patient presents as department from the outpatient [facility] office after a follow up appointment with Dr. Goldman. Patient has been having symptoms of worsening shortness of breath, lower extremity edema, symptoms of orthopnea. Her diuretics have been adjusted as an outpatient without any significant improvement in her symptoms. Also recent lab workup revealed worsening renal function and elevation of her BNP. It was recommended that patient be evaluated in the emergency department and be admitted for IV diuretics. On admission patient was started on IV Bumex with improvement in her symptoms. DIAGNOSTICS * Echocardiogram 01/2022 revealed an EF of 50%, severe right ventricular dilatation with severe pulmonary hypertension, RVSP 123mmHg, severe tricuspid regurgitation, right ventricular apical hypokinesis. * Echocardiogram 06/2021 in the office patient was in normal EF, severe tricuspid regurgitation, severe pulmonary hypertension, RVSP 75 mmHg * Cardiac catheterization History: * 11/2018 revealed minimal nonobstructive coronary artery disease, cardiac output 3.4 L, pulmonary artery systolic pressure 48 with a diastolic of 18, mean of 28 mmHg. Right ventricle systolic pressure 15 with end-diastolic of 5. 2 to 3+ mitral regurgitation 05/07/2022 Patient seen and examined at bedside, she is alert, oriented x 3. No acute distress. Breathing has improved. LE edema has improved. Weight stable, dec reased from admission. 1.5L urine output over the past 24 hours. IV Bumex was held secondary to renal function and nephrology recommending restart tonight. Sodium 135, potassium 4.5, BUN 88, sCr 2.44(yesterday 2.44) Echo revealed EF 55%, severe pulmonary hypertension, RVSP is 75 mmHg, dilated RV, moderate mitral regurgitation, small circumferential pericardial effusion. PHYSICAL EXAMINATION Vitals reviewed CONSTITUTIONAL: No apparent distress. HEENT: Neck Supple. JVD CHEST EXAMINATION: Lungs are diminished with mild crackles bilateral bases to auscultation. HEART EXAMINATION: Irregular rate and rhythm. S1, S2 heard. ABDOMEN: Soft, nontender. Positive bowel sounds. EXTREMITIES: 2+ peripheral pulses, 2+ bilateral lower extremity edema and no calf tenderness. NEUROLOGIC EXAMINATION: Patient is awake, alert and oriented x3. ASSESSMENT Acute on chronic heart failure with preserved ejection fraction Worsening symptoms of dyspnea with known history of severe pulmonary hypertensio n with most recent echo 01/2022 with RVSP 123 Long standing persistent atrial fibrillation on Eliquis History of hypertension Mild nonobstructive coronary artery disease by cardiac catheterization in 2019 Dyslipidemia PFO History of pulmonary embolism Anemia, history of anemia with no source of bleeding Intermediate probability of PE reported on VQ scan PLAN Patient is currently refusing right heart catheterization at this time. Nephrology following, plan to restart IV Bumex tonight Continue Revatio 20mg TID Echocardiogram revealed RVSP 75mmHg VQ scan revealed intermediate possibility for PE, Do not feel that it is a acute pulmonary embolism at this time, will restart Eliquis 5mg BID Pulmonary recommendations appreciated Monitor I/Os daily weights, renal function and electrolytes Monitor CBC Continue home statin, beta thomas and sprionolactone Continue metoprolol and spironolactone Recommend transition to PO Diuretics and possible discharge pending clearance from other consultants Depending on her progress further recommendations will be made. Nurse practitioner note has been reviewed by physician. Signing provider agrees with the documented findings, assessment, and plan of care. Objective - Vital Signs Vital signs: Vital Signs Temp 97.7 F 05/07/22 07:42 Pulse 88 05/07/22 07:42 Resp 20 05/07/22 07:42 BP 90/55 05/07/22 07:42 Pulse Ox 95 05/07/22 07:42 FiO2 Intake & Output 05/06/22 05/07/22 05/07/22 18:59 06:59 18:59 Intake Total 1014 10 Output Total 900 600 Balance 114 -590 Weight 66.8 kg Intake: IV 10 Invasive Line 2 10 Oral 1014 Output: Urine 900 600 Other: Voiding Method Toilet Toilet Toilet Bedpan Bedpan Bedpan # Voids 1 # Bowel Movements 1 - Labs CBC & Chem 7: 05/07/22 08:24 05/07/22 08:24 Labs: Abnormal Lab Results - Last 24 Hours (Table) 05/06/22 05/07/22 05/07/22 Range/Units 07:56 08:24 08:24 RBC 3.00 L (3.80-5.40) m/uL Hgb 8.4 L (11.4-16.0) gm/dL Hct 27.1 L (34.0-46.0) % RDW 19.5 H (11.5-15.5) % Sodium 135 L (137-145) mmol/L Chloride 94 L (98-107) mmol/L BUN 88 H (7-17) mg/dL Creatinine 2.44 H (0.52-1.04) mg/dL Glucose 110 H (74-99) mg/dL Magnesium 2.4 H (1.6-2.3) mg/dL Iron 49 L (50-170) ug/dL % Saturation 11.83 L (12.00-45.00)
--- NOTE | 2022-05-07 12:20 | P.PN ---
Subjective Progress Note Date: 05/06/22 H&P Date: 05/04/22 Chief Complaint: Worsening exertional dyspnea, bilateral lower extremity edema This is a 77-year-old female with past medical history of peptic ulcer disease, diverticulosis ,chronic persistent atrial fibrillation on Eliquis, hypertension, hyperlipidemia, severe pulmonary hypertension, severe tricuspid regurgitation, gastroesophageal reflux disease, chronic respiratory failure, wears 6 L at home, former nicotine dependenceand multiple other medical issues referred to the ER per cardiology yesterday. Diuretics had been adjusted outpatient, without improvement. Patient reports she had worsening exertional dyspnea over the last few months accompanied by lower extremity edema denies chest pain, palpitations or cough.Reports compliance with med regimen. IV diuretics initiated in the ER. Echo 02/02/2022 reported normal LV systolic function, severe right ventricular dilation with severe pulmonary hypertension, right ventricular apical hypokinesis, severe tricuspid regurgitation. EKG reporting atrial fibrillation, nonspecific T-waves, incomplete right bundle branch block. Troponin 0.036, 0.030, 0.031. ProBNP 9160. Chest x-ray reporting moderate cardiomegaly, diffuse interstitial densities with mild patchy bilateral infiltrates.Sodium 134, potassium 3-receiving supplementation, BUN 96, creatinine decreased to 2.1, hemoglobin 10.2. 05/05/2022 VQ scan reported intermittently probability for PE. Venous duplex pending.d-dimer pending .echo pending. Denies rectal bleeding, denies black stools .reports no bowel movement since admission . Diuresing on Bumex with 24- hour I&O reporting reporting decrease in weight of 0.5 kg ,breathing easier .blood pressures soft, maintaining O2 sats in the mid 90s on 6 L nasal cannula. Hemoglobin decreased to 8.6, BUN 92, creatinine 2.15 .echo pending . 05/06/2022 Dopplers of bilateral lower extremities reported negative for DVTs. Slept well. Denies chest pain, palpitations or shortness of breath. Revatio initiated. Scheduled for cardiac catheterization tomorrow with cardiology. Ultrasound of kidneys reporting no hydronephrosis with evidence of chronic medical renal disease. Continues to diuresing on IV push Bumex. BUN 19, creatinine 2.15. Maintaining O2 sats in the 90s on 6 L nasal cannula. Objective - Vital Signs Vital signs: Vital Signs Temp 97.5 F L 05/06/22 15:00 Pulse 79 05/06/22 15:00 Resp 18 05/06/22 15:00 BP 94/61 05/06/22 15:00 Pulse Ox 94 L 05/06/22 15:00 FiO2 Intake & Output 05/05/22 05/06/22 05/06/22 18:59 06:59 18:59 Intake Total 200 10 777 Output Total 300 400 Balance -100 10 377 Weight 66.8 kg 66.8 kg Intake: IV 10 Invasive Line 2 10 Oral 200 777 Output: Urine 300 400 Other: Voiding Method Bedpan Bedpan Toilet Bedpan # Voids 1 1 # Bowel Movements 1 - Exam - Exam PHYSICAL EXAM: VITAL SIGNS: As above GENERAL: Alert and oriented 3, Sitting up in bed, no acute distress HEENT: Conjunctivae normal. eyes normal. NECK: Supple, no JVD. CARDIOVASCULAR: S1, S2, irregular. Systolic murmur. RESPIRATION: Breath sounds diminished in the bases. ABDOMEN: Soft, nontender . No guarding. no masses palpable.Bowel sounds heard. LEGS: Positive edema, no clubbing, no cyanosis, +DP NERVOUS SYSTEM: Cranial N 2-12 grossly normal. No focal deficits. Strength and sensation grossly intact. Skin: Warm and dry, no rash - Labs CBC & Chem 7: 05/07/22 08:24 05/07/22 08:24 Labs: Abnormal Lab Results - Last 24 Hours (Table) 05/05/22 05/06/22 05/06/22 Range/Units 18:19 07:56 07:56 RBC 3.27 L (3.80-5.40) m/uL Hgb 9.2 L (11.4-16.0) gm/dL Hct 29.1 L (34.0-46.0) % RDW 19.2 H (11.5-15.5) % Sodium 136 L (137-145) mmol/L Chloride 93 L (98-107) mmol/L Carbon Dioxide 31 H (22-30) mmol/L BUN 90 H (7-17) mg/dL Creatinine 2.15 H (0.52-1.04) mg/dL Glucose 125 H (74-99) mg/dL Magnesium 2.4 H (1.6-2.3) mg/dL Assessment and Plan Assessment: Acute on chronic congestive heart failure, diastolic dysfunction, preserved EF Severe pulmonary hypertension, RVSP 76, etiology unclear Chronic hypoxic respiratory failure, wears 6 L nasal cannula O2 at home Acute renal failure. Chronic kidney disease stage III History of Covid-19 pneumonia, 06/28 Chronic Pulmonary hypertension, severe Chronic persistent atrial fibrillation, anticoagulated on Eliquis CAD Hypertension Severe tricuspid regurgitation Former nicotine dependence Plan: Continue on current medication regime ,monitoring and symptomatic treatment. Maintain Fluid restrictions,Diuretics,midodrine.Revatio initiated. Cardiac catheterization tomorrow. Close monitoring of renal function with rep eat labs ordered for a.m. The impression and plan of care has been dictated as directed. : I performed a history and examination of this patient, discussed the same with the dictator. I agree with the dictator's note ,documented as a scribe. Any additional findings or plans will be noted.
--- NOTE | 2022-05-07 12:43 | P.PN ---
Subjective Progress Note Date: 05/07/22 H&P Date: 05/04/22 Chief Complaint: Worsening exertional dyspnea, bilateral lower extremity edema This is a 77-year-old female with past medical history of peptic ulcer disease, diverticulosis ,chronic persistent atrial fibrillation on Eliquis, hypertension, hyperlipidemia, severe pulmonary hypertension, severe tricuspid regurgitation, gastroesophageal reflux disease, chronic respiratory failure, wears 6 L at home, former nicotine dependenceand multiple other medical issues referred to the ER per cardiology yesterday. Diuretics had been adjusted outpatient, without improvement. Patient reports she had worsening exertional dyspnea over the last few months accompanied by lower extremity edema denies chest pain, palpitations or cough.Reports compliance with med regimen. IV diuretics initiated in the ER. Echo 02/02/2022 reported normal LV systolic function, severe right ventricular dilation with severe pulmonary hypertension, right ventricular apical hypokinesis, severe tricuspid regurgitation. EKG reporting atrial fibrillation, nonspecific T-waves, incomplete right bundle branch block. Troponin 0.036, 0.030, 0.031. ProBNP 9160. Chest x-ray reporting moderate cardiomegaly, diffuse interstitial densities with mild patchy bilateral infiltrates.Sodium 134, potassium 3-receiving supplementation, BUN 96, creatinine decreased to 2.1, hemoglobin 10.2. 05/05/2022 VQ scan reported intermittently probability for PE. Venous duplex pending.d-dimer pending .echo pending. Denies rectal bleeding, denies black stools .reports no bowel movement since admission . Diuresing on Bumex with 24- hour I&O reporting reporting decrease in weight of 0.5 kg ,breathing easier .blood pressures soft, maintaining O2 sats in the mid 90s on 6 L nasal cannula. Hemoglobin decreased to 8.6, BUN 92, creatinine 2.15 .echo pending . 05/06/2022 Dopplers of bilateral lower extremities reported negative for DVTs. Slept well. Denies chest pain, palpitations or shortness of breath. Revatio initiated. Scheduled for cardiac catheterization tomorrow with cardiology. Ultrasound of kidneys reporting no hydronephrosis with evidence of chronic medical renal disease. Continues to diuresing on IV push Bumex. BUN 19, creatinine 2.15. Maintaining O2 sats in the 90s on 6 L nasal cannula. 05/07/2022 Echo reported EF 55%, severe pulmonary hypertension, RVSP 75 mmHg , dilated RV, moderate mitral regurgitation, severe tricuspid regurgitation ,small circumferential pericardial effusion .denies chest pain, palpitations or shortness of breath. Maintained on gentle IV fluid hydration . Bumex placed on hold last night as per nephrology. creatinine worsening, 2.44. Tentatively scheduled for cardiac catheterization this morning. Maintaining O2 sats in the 90s on 6 L nasal cannula. Objective - Vital Signs Vital signs: Vital Signs Temp 97.7 F 05/07/22 07:42 Pulse 76 05/07/22 11:10 Resp 20 05/07/22 11:10 BP 87/55 05/07/22 11:10 Pulse Ox 91 L 05/07/22 11:10 FiO2 Intake & Output 05/06/22 05/07/22 05/07/22 18:59 06:59 18:59 Intake Total 1014 10 Output Total 900 600 Balance 114 -590 Weight 66.8 kg Intake: IV 10 Invasive Line 2 10 Oral 1014 Output: Urine 900 600 Other: Voiding Method Toilet Toilet Toilet Bedpan Bedpan Bedpan # Voids 1 # Bowel Movements 1 - Exam - Exam PHYSICAL EXAM: VITAL SIGNS: As above GENERAL: Alert and oriented 3, Sitting up in bed, no acute distress HEENT: Conjunctivae normal. eyes normal. NECK: Supple, no JVD. CARDIOVASCULAR: S1, S2, irregular. Systolic murmur. RESPIRATION: Breath sounds diminished in the bases. ABDOMEN: Soft, nontender . No guarding. no masses palpable.Bowel sounds heard. LEGS: Positive edema, no clubbing, no cyanosis, +DP NERVOUS SYSTEM: Cranial N 2-12 grossly normal. No focal deficits. Strength and sensation grossly intact. Skin: Warm and dry, no rash - Labs CBC & Chem 7: 05/07/22 08:24 05/07/22 08:24 Labs: Abnormal Lab Results - Last 24 Hours (Table) 05/06/22 05/07/22 05/07/22 Range/Units 07:56 08:24 08:24 RBC 3.00 L (3.80-5.40) m/uL Hgb 8.4 L (11.4-16.0) gm/dL Hct 27.1 L (34.0-46.0) % RDW 19.5 H (11.5-15.5) % Sodium 135 L (137-145) mmol/L Chloride 94 L (98-107) mmol/L BUN 88 H (7-17) mg/dL Creatinine 2.44 H (0.52-1.04) mg/dL Glucose 110 H (74-99) mg/dL Magnesium 2.4 H (1.6-2.3) mg/dL Iron 49 L (50-170) ug/dL % Saturation 11.83 L (12.00-45.00) Assessment and Plan Assessment: Acute on chronic congestive heart failure, diastolic dysfunction, preserved EF Severe pulmonary hypertension, RVSP 76, etiology unclear Chronic hypoxic respiratory failure, wears 6 L nasal cannula O2 at home Acute renal failure. Chronic kidney disease stage III History of Covid-19 pneumonia, 06/28 Chronic Pulmonary hypertension, severe Chronic persistent atrial fibrillation, anticoagulated on Eliquis CAD Hypertension Severe tricuspid regurgitation Former nicotine dependence Plan: Continue on current medication regime ,monitoring and symptomatic treatment. Scheduled for Cardiac catheterization. Gentle IV fluid hydration currently as per cardiology. Worsening renal function. Diuretics currently on hold as per nephrology. The impression and plan of care has been dictated as directed. : I performed a history and examination of this patient, discussed the same with the dictator. I agree with the dictator's note ,documented as a scribe. Any additional findings or plans will be noted.
--- NOTE | 2022-05-07 13:15 | P.PN ---
Subjective Progress Note Date: 05/07/22 This is a pleasant 77-year-old female with past medical history of peptic ulcer disease, diverticulosis ,chronic persistent atrial fibrillation on Eliquis, hypertension, hyperlipidemia, severe pulmonary hypertension, severe tricuspid regurgitation, gastroesophageal reflux disease, chronic respiratory failure, wears 6 L at home, former nicotine dependence and multiple other medical issues referred to the ER 05/03/[address] Goldman with ongoing issues of shortness of breath and dyspnea on exertion. Patient reports she had presented for her cardiology appointment, reported increased weakness, shortness of breath increasing edema. We were asked to evaluate this patient by Dr. Goldman regarding her chronic pulmonary hypertension. Note that the patient has severe pulmonary hypertension. The patient is an ex-smoker and she has history of COPD. She has seen a [employer] special agent, Dr. Durand, and the patient has been told not to have any significant lung disease. Nevertheless, the CAT scan of the est that was done on previous hospitalizations, there is some obvious emphysematous changes bilaterally. The patient was treated for COVID 19 related infection/pneumonia back in June 2021 and she recovered without any major issues. She was hospitalized here back in January 2022 for similar symptoms. She has been placed on oxygen approximately 2 years ago. No previous history of DVT or pulmonary embolism. No supportive fibrosis. No history of intake of medication contributing to pulmonary hypertension. No chronic liver disease. Not in the age group for primary pulmonary hypertension and secondary causes were to be investigated. She had been seen and evaluated by Dr. Dawson. She was not noted to have any connective tissue disease or venous thrombolic disease or sleep reading disorder contributing to pulmonary hypertension. The patient is seen today in consultation on the cardiac care unit. She is sitting up in a chair at the bedside. Maintaining O2 saturations in the 90s on 6 L nasal cannula. Afebrile. Hemodynamically stable. She is dyspneic with conversation. Dyspneic with minimal exertion. Chest x-ray revealed moderate cardiomegaly. Diffuse interstitial densities in mild bilateral patchy infiltrates. Consider multifocal infectious infiltrates versus sequela of CHF with patchy pulmonary edema. No sizable pleural effusion. Ventilation perfusion test revealed intermediate probability for pulmonary embolism. Dopplers of the lower extremities were negative for DVT. She has been on Eliquis prior to admission. Ultrasound of the kidneys and bladder revealed evidence of chronic medical renal disease. No hydronephrosis noted bilaterally. White count 7.2. Hemoglobin 8.6. Platelets 230,000. Sodium 132. Potassium 3.5. BUN 92. Creatinine 2.15. BNP 7000 680. Urinalysis had been increased to 5 mg twice a day from 2.5 mg per cardiology. She is on Bumex 2 mg IV every 12 hours. Aldactone. The patient is seen today 05/06/2022 in follow-up on the selective care unit. She is currently resting comfortably in bed. Awake and alert in no acute dis tress. She denies any worsening shortness of breath, cough or congestion. She is maintaining O2 saturations in the 90s on her usual dose of oxygen at 6 L/m per nasal cannula. Sodium 136. Potassium 4.1. BUN 90. Creatinine 2.15. Glucose 125. She remains on Bumex. Plan is for right heart catheterization tomorrow with cardiology. She's been initiated on Revatio. The patient is seen today 05/07/2022 in follow-up on the selective care unit. She is currently awake and alert in no acute distress. Continues to maintain O2 saturations in the 90s on 6 L high flow nasal cannula. Denies any worsening shortness of breath, cough or congestion. No chest pain or palpitations. White count 7.7. Hemoglobin 8.4. Sodium 135. Bicarb 26. BUN 88. Creatinine 2.44. Glucose 110. ProBNP 8360. Cortisol level 24. She is continued on IV diuretics. Initial plan was for cardiac catheterization today however her renal function continues to worsen. Urology is on the case. Objective - Vital Signs Vital signs: Vital Signs Temp 97.7 F 05/07/22 07:42 Pulse 76 05/07/22 11:10 Resp 20 05/07/22 11:10 BP 87/55 05/07/22 11:10 Pulse Ox 91 L 05/07/22 11:10 FiO2 Intake & Output 05/06/22 05/07/22 05/07/22 18:59 06:59 18:59 Intake Total 1014 10 236 Output Total 900 600 450 Balance 114 -590 -214 Weight 66.8 kg Intake: IV 10 Invasive Line 2 10 Oral 1014 236 Output: Urine 900 600 450 Other: Voiding Method Toilet Toilet Toilet Bedpan Bedpan Bedpan # Voids 1 # Bowel Movements 1 - Exam GENERAL EXAM: Alert, pleasant 77-year-old female, on 6 L nasal cannula, fairly comfortable in no apparent distress. HEAD: Normocephalic. EYES: Normal reaction of pupils, equal size. NOSE: Clear with pink turbinates. THROAT: No erythema or exudates. NECK: No masses, no JVD. CHEST: No chest wall deformity. LUNGS: Equal air entry with crackles at the bilateral bases. CVS: S1 and S2 normal with no audible murmur, regular rhythm. ABDOMEN: No hepatosplenomegaly, normal bowel sounds, no guarding or rigidity. SPINE: No scoliosis or deformity SKIN: No rashes CENTRAL NERVOUS SYSTEM: No focal deficits, tone is normal in all 4 extremities. EXTREMITIES: There is 1+ peripheral edema. No clubbing, no cyanosis. Periphe ral pulses are intact. - Labs CBC & Chem 7: 05/07/22 08:24 05/07/22 08:24 Labs: Abnormal Lab Results - Last 24 Hours (Table) 05/06/22 05/07/22 05/07/22 Range/Units 07:56 08:24 08:24 RBC 3.00 L (3.80-5.40) m/uL Hgb 8.4 L (11.4-16.0) gm/dL Hct 27.1 L (34.0-46.0) % RDW 19.5 H (11.5-15.5) % Sodium 135 L (137-145) mmol/L Chloride 94 L (98-107) mmol/L BUN 88 H (7-17) mg/dL Creatinine 2.44 H (0.52-1.04) mg/dL Glucose 110 H (74-99) mg/dL Magnesium 2.4 H (1.6-2.3) mg/dL Iron 49 L (50-170) ug/dL % Saturation 11.83 L (12.00-45.00) Assessment and Plan Assessment: Acute on chronic hypoxemic respiratory failure secondary to an acute exacerbation of chronic diastolic congestive heart failure Severe pulmonary hypertension with an RVSP of 76 mmHg with severe right atrial and ventricular dilatation of unclear etiology. Other comorbid conditions are not present as the patient does not have any connective tissue disease or venous thrombolic disease or sleep breathing disorder to contributing to her pulmonary hypertension. Shunting whether his intracardiac shunting versus intracardiac cannot be completely ruled out. The patient's symptoms are chronic and she will require further investigation regarding her pulmonary hypertension which may include pft, hrct of the chest, right-sided cardiac cath and decide if anything can be done to help her out with her chronic hypoxemia and pulmonary hypertension. She may benefit from outpatient referral to the [facility] pulmonary hypertension clinic. Valvular heart disease with moderate mitral regurgitation with severe tricuspid regurgitation Chronic hypoxic respiratory failure, as the patient is normally on 6 L of oxygen by nasal cannula since 2019. Coronavirus associated pneumonia June 2021, recovered Chronic pulmonary hypertension, with severe dilatation of the RV and significant pulmonary hypertension History of chronic atrial fibrillation. Rate is controlled and the patient is Eliquis is long-term anticoagulation Hypertension COPD History of acute anemia CKD stage III Plan: The patient was seen and evaluated Medications and labs reviewed Continue diuretics for now Anticoagulation in the form of Eliquis No plans for cardiac catheterization due to worsening renal function Cleared for discharge from the pulmonary standpoint Overall prognosis remains guarded Follow-up with Dr. Dawson in our office regarding the pulmonary hypertension I have personally seen and examined the patient, performed the documentation and the assessment and plan as written. Number of minutes spent on the visit: 10.
[2022-05-07] MEDS: APIXABAN 5 MG TAB PO SCH (20:51)
[2022-05-08] MEDS: MIDODRINE 5 MG TAB PO SCH ×3 (06:07→17:08)
[2022-05-08 07:56] LABS: Calcium 9.2 mg/dL (8.4-10.2); Magnesium 2.4 mg/dL (1.6-2.3); Potassium 4.6 mmol/L (3.5-5.1)
[2022-05-08] MEDS: polyethylene glycoL 3350 17 GM POWD.PACK PO SCH (09:41)
[2022-05-08] MEDS: PANTOPRAZOLE 40 MG TABLET PO SCH (09:41)
[2022-05-08] MEDS: APIXABAN 5 MG TAB PO SCH ×2 (09:41→20:29)
[2022-05-08] MEDS: ATORVASTATIN 40 MG TAB PO SCH (09:41)
[2022-05-08] MEDS: SODIUM FERRIC GLUCONAT-SUCROSE 125 MG in SODIUM CHLORIDE 0.9% 100 ML IVPB SCH (09:41)
[2022-05-08] MEDS: SPIRONOLACTONE 25 MG TAB PO SCH (09:41)
[2022-05-08] MEDS: METOPROLOL TARTRATE 25 MG TAB PO SCH ×2 (09:41→20:29)
[2022-05-08] MEDS: SILDENAFIL 20 MG TAB PO SCH ×3 (09:42→23:17)
--- NOTE | 2022-05-08 11:28 | P.PN ---
Subjective Patient is seen for follow-up for Q kidney injury. Currently being diuresed and maintained on Bumex 2 mg IV daily. Blood pressure has been low and patient is maintained on midodrine 10 mg 3 times a day Urine output at 1500 mL over 24 hours Serum creatinine 2.5 g/dL today. It was at 2.4 yesterday. Systolic blood pressure remains in the 80s Objective - Vital Signs Vital signs: Vital Signs Temp 97.9 F 05/08/22 07:55 Pulse 86 05/08/22 07:55 Resp 16 05/08/22 07:55 BP 82/52 05/08/22 07:55 Pulse Ox 90 L 05/08/22 07:55 FiO2 Intake & Output 05/07/22 05/08/22 05/08/22 18:59 06:59 18:59 Intake Total 713 118 Output Total 650 200 Balance 63 -200 118 Intake: Oral 713 118 Output: Urine 650 200 Other: Voiding Method Toilet Toilet Toilet Bedpan Bedpan Bedpan # Voids 1 # Bowel Movements 1 - Exam Awake, comfortable, not in any acute distress Examination of the heart S1 and S2 Examination lungs decreased breath sounds at the bases with occasional wheezing Abdomen is soft nontender Examination of lower extremities shows no significant edema DOCTOR OF RADIOLOGY exam grossly intact - Labs CBC & Chem 7: 05/07/22 08:24 05/08/22 07:10 Labs: Abnormal Lab Results - Last 24 Hours (Table) 05/08/22 Range/Units 07:10 Sodium 136 L (137-145) mmol/L Chloride 96 L (98-107) mmol/L BUN 90 H (7-17) mg/dL Creatinine 2.53 H (0.52-1.04) mg/dL Glucose 117 H (74-99) mg/dL Magnesium 2.4 H (1.6-2.3) mg/dL Assessment and Plan Assessment: 1. Acute kidney injury secondary to ATN secondary to cardiorenal syndrome. Renal function worse. Creatinine 2.5. UA benign. No hydronephrosis noted on kidney ultrasound. 2. Chronic kidney disease stage IIIB with baseline creatinine in the range of 1.5-1.7 secondary to nephrosclerosis and cardiorenal syndrome. 3. Volume overload. Improved with diuresis. 4. Acute hypoxic respiratory failure. 5. Acute on chronic diastolic CHF with mild to moderate mitral regurgitation, severe tricuspid regurgitation and pulmonary hypertension. 6. Hypervolemic hyponatremia. Stable. 7. Hypokalemia from diuresis. Replaced. Better. 8. Anemia of chronic kidney disease. Iron deficiency noted. Plan: Continue with IV Bumex Maintain off of IV fluids Repeat labs in a.m. Continue with midodrine.
--- NOTE | 2022-05-08 12:54 | P.PN ---
Subjective Progress Note Date: 05/08/22 Patient is seen resting comfortably in bed in no signs of acute distress. She denies chest pain or increased shortness of breath. She remains A. fib on the monitor with a controlled ventricular rate of 78. She is on Eliquis. Nephrology is on the case and continues to follow dose of Bumex. At this time we'll continue with all current cardiac medications Objective - Vital Signs Vital signs: Vital Signs Temp 97.9 F 05/08/22 07:55 Pulse 86 05/08/22 07:55 Resp 16 05/08/22 07:55 BP 82/52 05/08/22 07:55 Pulse Ox 90 L 05/08/22 07:55 FiO2 Intake & Output 05/07/22 05/08/22 05/08/22 18:59 06:59 18:59 Intake Total 713 118 Output Total 650 200 Balance 63 -200 118 Intake: Oral 713 118 Output: Urine 650 200 Other: Voiding Method Toilet Toilet Toilet Bedpan Bedpan Bedpan # Voids 1 # Bowel Movements 1 - Exam PHYSICAL EXAM: VITAL SIGNS: Reviewed. GENERAL: Well-developed in no acute distress. HEENT: Head is normocephalic. Pupils are equal, round. Sclerae anicteric. Mucous membranes of the mouth are moist. NECK: Supple. No JVD or thyromegaly RESPIRATORY: Respirations even and unlabored. Lungs diminished to auscultation bilaterally. CARDIO: Regular rate and rhythm. S1 and S2 heard. No murmur or gallops. EXTREMITIES: Normal range of motion. No clubbing or cyanosis. Peripheral pulses intact. Mild bilateral lower extremity edema NEURO: Orientated to person, time, mood is appropriate - Labs CBC & Chem 7: 05/07/22 08:24 05/08/22 07:10 Labs: Abnormal Lab Results - Last 24 Hours (Table) 05/08/22 Range/Units 07:10 Sodium 136 L (137-145) mmol/L Chloride 96 L (98-107) mmol/L BUN 90 H (7-17) mg/dL Creatinine 2.53 H (0.52-1.04) mg/dL Glucose 117 H (74-99) mg/dL Magnesium 2.4 H (1.6-2.3) mg/dL Assessment and Plan Assessment: Acute on chronic heart failure with preserved ejection fraction Worsening symptoms of dyspnea with known history of severe pulmonary hypertension with most recent echo 01/2022 with RVSP 123 Long standing persistent atrial fibrillation on Eliquis History of hypertension Mild nonobstructive coronary artery disease by cardiac catheterization in 2019 Dyslipidemia PFO History of pulmonary embolism Anemia, history of anemia with no source of bleeding Intermediate probability of PE reported on VQ scan Plan: Nephrology following, Bumex and kidney function Continue Revatio 20mg TID Echocardiogram revealed RVSP 75mmHg VQ scan revealed intermediate possibility for PE, Do not feel that it is a acute pulmonary embolism at this time, will restart Eliquis 5mg BID Pulmonary following Monitor I/Os daily weights, renal function and electrolytes Monitor CBC Continue home statin, beta thomas and sprionolactone Continue metoprolol and spironolactone Recommend transition to PO Diuretics and possible discharge pending clearance from other consultants Depending on her progress further recommendations will be made. Nurse practitioner note has been reviewed by physician. Signing provider agrees with the documented findings, assessment, and plan of care.
[2022-05-08] MEDS: BUMETANIDE 0.25 MG/ML 10 ML VIAL IV SCH (13:02)
[2022-05-08] MEDS ORDERED: BUMETANIDE 0.25 MG/ML 10 ML VIAL IV SCH (21:00)
[2022-05-09] MEDS: diphenhydrAMINE 25 MG CAP PO PRN ×2 (01:50→20:29)
[2022-05-09] MEDS: MIDODRINE 5 MG TAB PO SCH ×3 (06:10→18:05)
--- NOTE | 2022-05-09 09:18 | P.PN ---
Subjective Progress Note Date: 05/08/22 Principal diagnosis: Acute on chronic hypoxic respiratory failure Acute on chronic CHF with preserved ejection fraction Worsening dyspnea/ intermediate probability of PE Debility/weakness 77-year-old female with past medical history of peptic ulcer disease, diverticulosis ,chronic persistent atrial fibrillation on Eliquis, hypertension, hyperlipidemia, severe pulmonary hypertension, severe tricuspid regurgitation, gastroesophageal reflux disease, chronic respiratory failure, wears 6 L at home, former nicotine dependenceand multiple other medical issues referred to the ER per cardiology yesterday. Diuretics had been adjusted outpatient, without improvement. Patient reports she had worsening exertional dyspnea over the last few months accompanied by lower extremity edema denies chest pain, palpitations or cough.Reports compliance with med regimen. IV diuretics initiated in the ER. Echo 02/02/2022 reported normal LV systolic function, severe right ventricular dilation with severe pulmonary hypertension, right ventricular apical hypokines is, severe tricuspid regurgitation. EKG reporting atrial fibrillation, nonspecific T-waves, incomplete right bundle branch block. Troponin 0.036, 0.030, 0.031. ProBNP 9160. Chest x-ray reporting moderate cardiomegaly, diffuse interstitial densities with mild patchy bilateral infiltrates.Sodium 1 34, potassium 3-receiving supplementation, BUN 96, creatinine decreased to 2.1, hemoglobin 10.2. 05/07/2022 Patient is seen and evaluated in follow-up on the selective care unit; family at bedside. She is currently awake and alert in no acute distress. Continues to maintain O2 saturations in the 90s on 6 L high flow nasal cannula. Denies any worsening shortness of breath, cough or congestion. No chest pain or palpitations. - White count 7.7. Hemoglobin 8.4. Sodium 135. Bicarb 26. BUN 88. Creatinine 2.44. Glucose 110. ProBNP 8360. Cortisol level 24. She is continued on IV diuretics. Initial plan was for cardiac catheterization today however her renal function continues to worsen. Nephrology Urology is on the case. Objective - Vital Signs Vital signs: Vital Signs Temp 97.5 F L 05/08/22 03:22 Pulse 82 05/08/22 03:22 Resp 16 05/08/22 03:22 BP 89/53 05/08/22 03:22 Pulse Ox 91 L 05/08/22 03:22 FiO2 Intake & Output 05/07/22 05/08/22 05/08/22 18:59 06:59 18:59 Intake Total 713 118 Output Total 650 200 Balance 63 -200 118 Intake: Oral 713 118 Output: Urine 650 200 Other: Voiding Method Toilet Toilet Bedpan Bedpan # Voids 1 # Bowel Movements 1 - Exam GENERAL: Alert and oriented 3, Sitting up in bed, no acute distress HEENT: Conjunctivae normal. eyes normal. NECK: Supple, no JVD. CARDIOVASCULAR: S1, S2, irregular. Systolic murmur. RESPIRATION: Breath sounds diminished in the bases. ABDOMEN: Soft, nontender . No guarding. no masses palpable.Bowel sounds heard. LEGS: Positive edema, no clubbing, no cyanosis, +DP NERVOUS SYSTEM: Cranial N 2-12 grossly normal. No focal deficits. Strength and sensation grossly intact. Skin: Warm and dry, no rash - Labs CBC & Chem 7: 05/07/22 08:24 05/08/22 07:10 Labs: Abnormal Lab Results - Last 24 Hours (Table) 05/08/22 Range/Units 07:10 Sodium 136 L (137-145) mmol/L Chloride 96 L (98-107) mmol/L BUN 90 H (7-17) mg/dL Creatinine 2.53 H (0.52-1.04) mg/dL Glucose 117 H (74-99) mg/dL Magnesium 2.4 H (1.6-2.3) mg/dL Assessment and Plan Assessment: Acute on chronic congestive heart failure, diastolic dysfunction, preserved EF Severe pulmonary hypertension, RVSP 76, etiology unclear Chronic hypoxic respiratory failure, wears 6 L nasal cannula O2 at home Acute renal failure. Chronic kidney disease stage III History of Covid-19 pneumonia, 06/28 Chronic Pulmonary hypertension, severe Chronic persistent atrial fibrillation, anticoagulated on Eliquis CAD Hypertension Severe tricuspid regurgitation Former nicotine dependence ---- Medications and labs reviewed Continue diuretics for now Anticoagulation in the form of Eliquis No plans for cardiac catheterization due to worsening renal function Cleared for discharge from the pulmonary standpoint Overall prognosis remains guarded
--- NOTE | 2022-05-09 10:01 | P.PN ---
Subjective Patient is seen for follow-up for Q kidney injury. Currently being diuresed and maintained on Bumex 2 mg IV daily. Blood pressure has been low and patient is maintained on midodrine 10 mg 3 times a day Urine output decreased to about 8 5424 hours from 1500 the day before. Serum creatinine 2.5 g/dL yesterday. Systolic blood pressure remains in the 80s Patient has refused cardiac catheterization No complaints of shortness of breath or chest pain. Objective - Vital Signs Vital signs: Vital Signs Temp 97.6 F 05/09/22 03:35 Pulse 83 05/09/22 03:35 Resp 16 05/09/22 03:35 BP 87/54 05/09/22 03:35 Pulse Ox 96 05/09/22 03:35 FiO2 Intake & Output 05/08/22 05/09/22 05/09/22 18:59 06:59 18:59 Intake Total 778 118 Output Total 300 Balance 778 -300 118 Weight 63.5 kg Intake: Oral 778 118 Output: Urine 300 Other: Voiding Method Toilet Bedside Commode Bedpan Bedpan # Voids 1 # Bowel Movements 1 - Exam Awake, comfortable, not in any acute distress Examination of the heart S1 and S2 Examination lungs decreased breath sounds at the bases Abdomen is soft nontender Examination of lower extremities shows no significant edema 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 Acute kidney injury secondary to ATN secondary to cardiorenal syndrome. Renal function worse. Creatinine 2.5. UA benign. No hydronephrosis noted on kidney ultrasound. 2. Chronic kidney disease stage IIIB with baseline creatinine in the range of 1.5-1.7 secondary to nephrosclerosis and cardiorenal syndrome. 3. Volume overload. Improved with diuresis. 4. Acute hypoxic respiratory failure. 5. Acute on chronic diastolic CHF with mild to moderate mitral regurgitation, severe tricuspid regurgitation and pulmonary hypertension. 6. Hypervolemic hyponatremia. Stable. 7. Hypokalemia from diuresis. Replaced. Better. 8. Anemia of chronic kidney disease. Iron deficiency noted. Plan: Check post void residual residual Continue with IV Bumex Continue with midodrine Repeat labs
[2022-05-09] MEDS: APIXABAN 5 MG TAB PO SCH ×2 (10:07→20:29)
[2022-05-09] MEDS: SODIUM FERRIC GLUCONAT-SUCROSE 125 MG in SODIUM CHLORIDE 0.9% 100 ML IVPB SCH (10:07)
[2022-05-09] MEDS: ATORVASTATIN 40 MG TAB PO SCH (10:08)
[2022-05-09] MEDS: METOPROLOL TARTRATE 25 MG TAB PO SCH ×2 (10:08→20:29)
[2022-05-09] MEDS: polyethylene glycoL 3350 17 GM POWD.PACK PO SCH (10:08)
[2022-05-09] MEDS: SPIRONOLACTONE 25 MG TAB PO SCH (10:08)
[2022-05-09] MEDS: SILDENAFIL 20 MG TAB PO SCH ×3 (10:08→23:38)
[2022-05-09] MEDS: PANTOPRAZOLE 40 MG TABLET PO SCH (10:08)
[2022-05-09] MEDS: BUMETANIDE 0.25 MG/ML 10 ML VIAL IV SCH (13:11)
--- NOTE | 2022-05-09 13:39 | P.PN ---
Subjective Progress Note Date: 05/09/22 Principal diagnosis: Acute on chronic hypoxic respiratory failure Acute on chronic CHF with preserved ejection fraction Worsening dyspnea/ intermediate probability of PE Debility/weakness 77-year-old female with past medical history of peptic ulcer disease, diverticulosis ,chronic persistent atrial fibrillation on Eliquis, hypertension, hyperlipidemia, severe pulmonary hypertension, severe tricuspid regurgitation, gastroesophageal reflux disease, chronic respiratory failure, wears 6 L at home, former nicotine dependenceand multiple other medical issues referred to the ER per cardiology yesterday. Diuretics had been adjusted outpatient, without improvement. Patient reports she had worsening exertional dyspnea over the last few months accompanied by lower extremity edema denies chest pain, palpitations or cough.Reports compliance with med regimen. IV diuretics initiated in the ER. Echo 02/02/2022 reported normal LV systolic function, severe right ventricular dilation with severe pulmonary hypertension, right ventricular apical hypokines is, severe tricuspid regurgitation. EKG reporting atrial fibrillation, nonspecific T-waves, incomplete right bundle branch block. Troponin 0.036, 0.030, 0.031. ProBNP 9160. Chest x-ray reporting moderate cardiomegaly, diffuse interstitial densities with mild patchy bilateral infiltrates.Sodium 1 34, potassium 3-receiving supplementation, BUN 96, creatinine decreased to 2.1, hemoglobin 10.2. 05/08/2022 Patient is seen and evaluated in follow-up on the selective care unit; family at bedside. She is currently awake and alert in no acute distress. Continues to maintain O2 saturations in the 90s on 6 L high flow nasal cannula. Denies any worsening shortness of breath, cough or congestion. No chest pain or palpitations. - White count 7.7. Hemoglobin 8.4. Sodium 135. Bicarb 26. BUN 88. Creatinine 2.44. Glucose 110. ProBNP 8360. Cortisol level 24. She is continued on IV diuretics. Initial plan was for cardiac catheterization today however her renal function continues to worsen. Nephrology Urology is on the case. 05/09/2022 Patient is seen and evaluated in room at bedside; discussed with nursing staff in great detail; concerns about decreased urine output; bladder scan was done which didn't reveal large volume of urine; Rider catheter has been placed; we will consult urology evaluated patient and make recommendations Nephrology on board for acute renal injury; patient is currently being diuresed with Bumex 2 mg IV daily; blood pressure remained soft; patient is currently on Midrin 10 mg 3 times a day Patient has refused cardiac catheterization PT is consulted for transition of care Objective - Vital Signs Vital signs: Vital Signs Temp 97.6 F 05/09/22 03:35 Pulse 83 05/09/22 03:35 Resp 16 05/09/22 03:35 BP 87/54 05/09/22 03:35 Pulse Ox 96 05/09/22 03:35 FiO2 Intake & Output 05/08/22 05/09/22 05/09/22 18:59 06:59 18:59 Intake Total 778 118 Output Total 300 Balance 778 -300 118 Weight 63.5 kg Intake: Oral 778 118 Output: Urine 300 Other: Voiding Method Toilet Bedside Commode Bedpan Bedpan # Voids 1 # Bowel Movements 1 - Exam GENERAL: Alert and oriented 3, Sitting up in bed, no acute distress HEENT: Conjunctivae normal. eyes normal. NECK: Supple, no JVD. CARDIOVASCULAR: S1, S2, irregular. Systolic murmur. RESPIRATION: Breath sounds diminished in the bases. ABDOMEN: Soft, nontender . No guarding. no masses palpable.Bowel sounds heard. LEGS: Positive edema, no clubbing, no cyanosis, +DP NERVOUS SYSTEM: Cranial N 2-12 grossly normal. No focal deficits. Strength and sensation grossly intact. Skin: Warm and dry, no rash - Labs CBC & Chem 7: 05/07/22 08:24 05/08/22 07:10 Assessment and Plan Assessment: Acute on chronic congestive heart failure, diastolic dysfunction, preserved EF Severe pulmonary hypertension, RVSP 76, etiology unclear Chronic hypoxic respiratory failure, wears 6 L nasal cannula O2 at home Acute renal failure. Chronic kidney disease stage III History of Covid-19 pneumonia, 06/28 Chronic Pulmonary hypertension, severe Chronic persistent atrial fibrillation, anticoagulated on Eliquis CAD Hypertension Severe tricuspid regurgitation Former nicotine dependence ---- Medications and labs reviewed Continue diuretics for now Anticoagulation in the form of Eliquis No plans for cardiac catheterization due to worsening renal function Cleared for discharge from the pulmonary standpoint Overall prognosis remains guarded
--- NOTE | 2022-05-09 13:50 | P.PN ---
Subjective Progress Note Date: 05/09/22 Patient is examined sitting on the signing the bed. She is in no signs of acute distress she denies increased shortness of breath or chest pain. She is on supplemental oxygen. Continue to follow kidney function BUN is 90 creatinine is 2.5 today. Blood pressure is 87/54. Patient on midodrine Continue to hold Lasix. Bumex and spironolactone being followed by nephrology Objective - Vital Signs Vital signs: Vital Signs Temp 97.6 F 05/09/22 03:35 Pulse 83 05/09/22 03:35 Resp 16 05/09/22 03:35 BP 87/54 05/09/22 03:35 Pulse Ox 96 05/09/22 03:35 FiO2 Intake & Output 05/08/22 05/09/22 05/09/22 18:59 06:59 18:59 Intake Total 778 118 Output Total 300 Balance 778 -300 118 Weight 63.5 kg Intake: Oral 778 118 Output: Urine 300 Other: Voiding Method Toilet Bedside Commode Bedpan Bedpan # Voids 1 # Bowel Movements 1 - Exam PHYSICAL EXAM: VITAL SIGNS: Reviewed. GENERAL: Well-developed in no acute distress. HEENT: Head is normocephalic. Pupils are equal, round. Sclerae anicteric. Mucous membranes of the mouth are moist. NECK: Supple. No JVD or thyromegaly RESPIRATORY: Respirations even and unlabored. Lungs diminished to auscultation bilaterally. CARDIO: Regular rate and rhythm. S1 and S2 heard. No murmur or gallops. EXTREMITIES: Normal range of motion. No clubbing or cyanosis. Peripheral pul ses intact. Mild bilateral lower extremity edema NEURO: Orientated to person, time, mood is appropriate - Labs CBC & Chem 7: 05/07/22 08:24 05/08/22 07:10 Assessment and Plan Assessment: Acute on chronic heart failure with preserved ejection fraction Worsening symptoms of dyspnea with known history of severe pulmonary hypertension with most recent echo 01/2022 with RVSP 123 Long standing persistent atrial fibrillation on Eliquis History of hypertension Mild nonobstructive coronary artery disease by cardiac catheterization in 2019 Dyslipidemia PFO History of pulmonary embolism Anemia, history of anemia with no source of bleeding Intermediate probability of PE reported on VQ scan Plan: Nephrology following, Bumex and kidney function Continue Revatio 20mg TID Echocardiogram revealed RVSP 75mmHg VQ scan revealed intermediate possibility for PE, Do not feel that it is a acute pulmonary embolism at this time, will restart Eliquis 5mg BID Pulmonary following Monitor I/Os daily weights, renal function and electrolytes Monitor CBC Continue home statin, beta thomas and sprionolactone Continue metoprolol and spironolactone Depending on her progress further recommendations will be made. Nurse practitioner note has been reviewed by physician. Signing provider agrees with the documented findings, assessment, and plan of care.
--- NOTE | 2022-05-09 16:05 | US ---
EXAMINATION TYPE: US kidneys/renal and bladder DATE OF EXAM: 05/09/2022 COMPARISON: NONE CLINICAL HISTORY: urine retention. states urine retention but patient had no symptoms EXAM MEASUREMENTS: Right Kidney: 9.0 x 3.9 x 3.6 cm Left Kidney: 10.1 x 3.4 x 3.5 cm Right Kidney: No hydronephrosis or masses seen Left Kidney: No hydronephrosis or masses seen Bladder: not distended *ascites seen IMPRESSION: Kidneys have fairly normal size. No hydronephrosis. Abdominal ascites.
[2022-05-10] MEDS: MIDODRINE 5 MG TAB PO SCH ×3 (06:15→16:16)
[2022-05-10] MEDS: diphenhydrAMINE 25 MG CAP PO PRN ×2 (06:19→17:33)
[2022-05-10] MEDS: polyethylene glycoL 3350 17 GM POWD.PACK PO SCH (08:56)
[2022-05-10] MEDS: PANTOPRAZOLE 40 MG TABLET PO SCH (08:56)
[2022-05-10] MEDS: METOPROLOL TARTRATE 25 MG TAB PO SCH ×2 (08:57→20:28)
[2022-05-10] MEDS: SILDENAFIL 20 MG TAB PO SCH ×3 (08:57→22:48)
[2022-05-10] MEDS: APIXABAN 5 MG TAB PO SCH (08:57)
[2022-05-10] MEDS: ATORVASTATIN 40 MG TAB PO SCH (08:57)
[2022-05-10] MEDS: SPIRONOLACTONE 25 MG TAB PO SCH (08:57)
[2022-05-10] MEDS: SODIUM FERRIC GLUCONAT-SUCROSE 125 MG in SODIUM CHLORIDE 0.9% 100 ML IVPB SCH (08:57)
[2022-05-10 09:14] LABS: Anisocytosis Moderate; Basophils # (A) 0.1 k/uL (0-0.2); Basophils % (A) 1 %; Eosinophils # (A) 0.3 k/uL (0-0.7); Eosinophils % (A) 3 %; HCT 29.1 % (34.0-46.0); Hypochromasia Marked; Lymphocytes # (A) 1.3 k/uL (1.0-4.8); Lymphocytes % (A) 15 %; MCH 27.8 pg (25.0-35.0); MCHC 30.8 g/dL (31.0-37.0); MCV 90.3 fL (80.0-100.0); Macrocytosis Slight; Mean Platelet Volume 9.9; Monocytes # (A) 0.5 k/uL (0-1.0); Monocytes % (A) 6 %; Neutrophils # (A) 6.2 k/uL (1.3-7.7); Neutrophils % (A) 72 %; Platelet Count 285 k/uL (150-450); Poikilocytosis Slight; RBC 3.22 m/uL (3.80-5.40); RDW 21.5 % (11.5-15.5); WBC 8.6 k/uL (3.8-10.6)
[2022-05-10 10:12] LABS: Calcium 9.8 mg/dL (8.4-10.2); Potassium 4.2 mmol/L (3.5-5.1)
--- NOTE | 2022-05-10 11:06 | P.PN ---
Subjective Patient is seen for follow-up for Q kidney injury. Currently being diuresed and maintained on Bumex 2 mg IV daily. Blood pressure has been low and patient is maintained on midodrine 10 mg 3 times a day Urine output decreased to about 800 for 24 hours from 1500 the day before. Serum creatinine 2.5 g/dL yesterday. Systolic blood pressure remains in the 90s Patient has refused cardiac catheterization No complaints of shortness of breath or chest pain. A bladder scan showed more than 400 mL yesterdayand a Rider catheter was placed. .Only 50-60 mL was obtained on straight catheterization. 24 hour output at 1.3 L Objective - Vital Signs Vital signs: Vital Signs Temp 97.7 F 05/10/22 08:55 Pulse 93 05/10/22 08:55 Resp 18 05/10/22 08:55 BP 103/70 05/10/22 08:55 Pulse Ox 95 05/10/22 08:55 FiO2 Intake & Output 05/09/22 05/10/22 05/10/22 18:59 06:59 18:59 Intake Total 1130 240 Output Total 1325 Balance -195 240 Weight 60.5 kg Intake: Oral 1130 240 Output: Urine 1325 Straight 50 Other: Voiding Method Bedside Commode Indwelling Catheter Indwelling Catheter Bedpan # Bowel Movements 2 - Exam Awake, comfortable, not in any acute distress Examination of the heart S1 and S2 Examination lungs decreased breath sounds at the bases , basal crackles Abdomen is soft nontender Examination of lower extremities shows 2+ edema 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 Acute kidney injury secondary to ATN secondary to cardiorenal syndrome. Renal function worse. Creatinine 2.8. UA benign. No hydronephrosis noted on kidney ultrasound. possible urine retention status post Rider catheter placement yesterday 2. Chronic kidney disease stage IIIB with baseline creatinine in the range of 1.5-1.7 secondary to nephrosclerosis and cardiorenal syndrome. 3. Volume overload. Improved with diuresis. 4. Acute hypoxic respiratory failure. 5. Acute on chronic diastolic CHF with mild to moderate mitral regurgitation, severe tricuspid regurgitation and pulmonary hypertension. 6. Hypervolemic hyponatremia. Stable. 7. Hypokalemia from diuresis. Replaced. Better. 8. Anemia of chronic kidney disease. Iron deficiency noted. Plan: continue with Rider catheter Continue with IV Bumex Continue midodrine Repeat labs in a.m. Briefly discussed renal replacement therapy if renal function continues to worsen.
[2022-05-10] MEDS: BUMETANIDE 0.25 MG/ML 10 ML VIAL IV SCH (12:03)
--- NOTE | 2022-05-10 15:20 | PN ---
PROGRESS NOTE SUBJECTIVE: Mrs. Hinton has severe pulmonary hypertension. Her creatinine is slightly elevated and also she is 77 years of age, weight is 60 kg. I will decrease the Eliquis from 5 to 2.5 mg b.i.d. Vitals are stable. Patient is being considered to be transferred to rehab facility probably. OBJECTIVE: HEART: S1, S2 noted irregular rhythm noted, short systolic murmur noted at the left sternal border. LUNGS: Reveal diminished air entry. ABDOMEN: Soft, nontender. EXTREMITIES: Lower extremities reveal diminished pulses. CENTRAL NERVOUS SYSTEM: Grossly within normal limits without focal deficits. Cardiac crenshaw, no new specific suggestions at this time other than decreasing the dose of Eliquis. She is known to have long-standing atrial fibrillation. MMODL / IJN: [id number] /
--- NOTE | 2022-05-10 17:32 | P.PN ---
Subjective Progress Note Date: 05/10/22 H&P Date: 05/04/22 Chief Complaint: Worsening exertional dyspnea, bilateral lower extremity edema This is a 77-year-old female with past medical history of peptic ulcer disease, diverticulosis ,chronic persistent atrial fibrillation on Eliquis, hypertension, hyperlipidemia, severe pulmonary hypertension, severe tricuspid regurgitation, gastroesophageal reflux disease, chronic respiratory failure, wears 6 L at home, former nicotine dependenceand multiple other medical issues referred to the ER per cardiology yesterday. Diuretics had been adjusted outpatient, without improvement. Patient reports she had worsening exertional dyspnea over the last few months accompanied by lower extremity edema denies chest pain, palpitations or cough.Reports compliance with med regimen. IV diuretics initiated in the ER. Echo 02/02/2022 reported normal LV systolic function, severe right ventricular dilation with severe pulmonary hypertension, right ventricular apical hypokinesis, severe tricuspid regurgitation. EKG reporting atrial fibrillation, nonspecific T-waves, incomplete right bundle branch block. Troponin 0.036, 0.030, 0.031. ProBNP 9160. Chest x-ray reporting moderate cardiomegaly, diffuse interstitial densities with mild patchy bilateral infiltrates.Sodium 134, potassium 3-receiving supplementation, BUN 96, creatinine decreased to 2.1, hemoglobin 10.2. 05/05/2022 VQ scan reported intermittently probability for PE. Venous duplex pending.d-dimer pending .echo pending. Denies rectal bleeding, denies black stools .reports no bowel movement since admission . Diuresing on Bumex with 24- hour I&O reporting reporting decrease in weight of 0.5 kg ,breathing easier .blood pressures soft, maintaining O2 sats in the mid 90s on 6 L nasal cannula. Hemoglobin decreased to 8.6, BUN 92, creatinine 2.15 .echo pending . 05/06/2022 Dopplers of bilateral lower extremities reported negative for DVTs. Slept well. Denies chest pain, palpitations or shortness of breath. Revatio initiated. Scheduled for cardiac catheterization tomorrow with cardiology. Ultrasound of kidneys reporting no hydronephrosis with evidence of chronic medical renal disease. Continues to diuresing on IV push Bumex. BUN 19, creatinine 2.15. Maintaining O2 sats in the 90s on 6 L nasal cannula. 05/07/2022 Echo reported EF 55%, severe pulmonary hypertension, RVSP 75 mmHg , dilated RV, moderate mitral regurgitation, severe tricuspid regurgitation ,small circumferential pericardial effusion .denies chest pain, palpitations or shortness of breath. Maintained on gentle IV fluid hydration . Bumex placed on hold last night as per nephrology. creatinine worsening, 2.44. Tentatively scheduled for cardiac catheterization this morning. Maintaining O2 sats in the 90s on 6 L nasal cannula. 05/10/2010 maintained on Revatio. Declined cardiac catheterization, given her risk of potentially requiring renal replacement therapy. Rider catheter placed yesterday for urinary retention of greater than 400ml. Diuresing on IV Bumex, creatinine worsening, 2.88. Eliquis resumed, hemoglobin stable. Complains of increased weakness .Evaluated by PT, currently recommending home care. Denies chest pain, palpitations or shortness of breath. Denies cough. Objective - Vital Signs Vital signs: Vital Signs Temp 97.6 F 05/10/22 12:00 Pulse 89 05/10/22 16:10 Resp 16 05/10/22 16:10 BP 79/46 05/10/22 16:10 Pulse Ox 93 L 05/10/22 16:10 FiO2 Intake & Output 05/09/22 05/10/22 05/10/22 18:59 06:59 18:59 Intake Total 1130 358 Output Total 1325 Balance -195 358 Weight 60.5 kg Intake: Oral 1130 358 Output: Urine 1325 Straight 50 Other: Voiding Method Bedside Commode Indwelling Catheter Indwelling Catheter Bedpan # Bowel Movements 2 - Exam - Exam PHYSICAL EXAM: VITAL SIGNS: As above GENERAL: Alert and oriented 3, Sitting up in bed, no acute distress HEENT: Conjunctivae normal. eyes normal. NECK: Supple, no JVD. CARDIOVASCULAR: S1, S2, irregular. Systolic murmur. RESPIRATION: Unlabored, Breath sounds diminished in the bases. ABDOMEN: Soft, nontender . No guarding. no masses palpable.Bowel sounds heard. LEGS: no edema, no clubbing, no cyanosis, +DP NERVOUS SYSTEM: Cranial N 2-12 grossly normal. No focal deficits. Strength and sensation grossly intact. Skin: Warm and dry, no rash - Labs CBC & Chem 7: 05/10/22 08:40 05/10/22 08:40 Labs: Abnormal Lab Results - Last 24 Hours (Table) 05/10/22 05/10/22 Range/Units 08:40 08:40 RBC 3.22 L (3.80-5.40) m/uL Hgb 9.0 L (11.4-16.0) gm/dL Hct 29.1 L (34.0-46.0) % MCHC 30.8 L (31.0-37.0) g/dL RDW 21.5 H (11.5-15.5) % Chloride 96 L (98-107) mmol/L BUN 80 H (7-17) mg/dL Creatinine 2.88 H (0.52-1.04) mg/dL Glucose 109 H (74-99) mg/dL Assessment and Plan Assessment: Acute on chronic congestive heart failure, diastolic dysfunction, preserved EF Severe pulmonary hypertension, RVSP 76, etiology unclear Chronic hypoxic respiratory failure, wears 6 L nasal cannula O2 at home Acute renal failure. Urinary retention requiring Rider catheter Chronic kidney disease stage III History of Covid-19 pneumonia, 06/28 Chronic Pulmonary hypertension, severe Chronic persistent atrial fibrillation, anticoagulated on Eliquis, dose decreased. CAD Hypertension Severe tricuspid regurgitation Former nicotine dependence Plan: Continue on current medication regime ,monitoring and symptomatic treatment. Worsening renal function. Diuretics as per nephrology. Renal replacement therapy options discussed. Close monitoring of renal function with repeat labs ordered for a.m. Eliquis dose decreased as per cardiology. The impression and plan of care has been dictated as directed. : I performed a history and examination of this patient, discussed the same with the dictator. I agree with the dictator's note ,documented as a scribe. Any additional findings or plans will be noted.
[2022-05-10] MEDS: APIXABAN 2.5 MG TABLET PO SCH (20:28)
[2022-05-11] MEDS: diphenhydrAMINE 25 MG CAP PO PRN ×2 (03:24→21:20)
[2022-05-11] MEDS: MIDODRINE 5 MG TAB PO SCH ×3 (06:24→16:28)
[2022-05-11] MEDS: ATORVASTATIN 40 MG TAB PO SCH (09:20)
[2022-05-11] MEDS: PANTOPRAZOLE 40 MG TABLET PO SCH (09:20)
[2022-05-11] MEDS: APIXABAN 2.5 MG TABLET PO SCH ×2 (09:20→21:20)
[2022-05-11] MEDS: polyethylene glycoL 3350 17 GM POWD.PACK PO SCH (09:21)
[2022-05-11] MEDS: SILDENAFIL 20 MG TAB PO SCH ×3 (09:21→23:43)
[2022-05-11] MEDS: SPIRONOLACTONE 25 MG TAB PO SCH (09:23)
[2022-05-11 10:50] LABS: Calcium 9.4 mg/dL (8.4-10.2); Potassium 4.3 mmol/L (3.5-5.1)
[2022-05-11] MEDS: METOPROLOL TARTRATE 25 MG TAB PO SCH (11:19)
--- NOTE | 2022-05-11 12:14 | P.PN ---
Subjective Progress Note Date: 05/11/22 HISTORY OF PRESENT ILLNESS: Patient examined this morning at the bedside. Patient denies chest pain or pressure. She denies shortness of breath. Patient received 25 mg of metoprolol yesterday evening and developed hypotension with a systolic blood pressure in the 70s. Her blood pressure this morning remains on the lower side with a systolic in the 90s. PHYSICAL EXAM: VITAL SIGNS: Reviewed. GENERAL: Well-developed in no acute distress. NECK: Supple. No JVD or thyromegaly LUNGS: Respirations even and unlabored. Lungs essentially clear to auscultation bilaterally. HEART: Regular rate and rhythm. S1 and S2 heard. EXTREMITIES: Normal range of motion. No clubbing or cyanosis. Peripheral pulses intact. No lower extremity edema ASSESSMENT: Acute on chronic heart failure with preserved ejection fraction Worsening symptoms of dyspnea with known history of severe pulmonary hypertension with most recent echo 01/2022 with RVSP 123 Long standing persistent atrial fibrillation on Eliquis History of hypertension Mild nonobstructive coronary artery disease by cardiac catheterization in 2019 Dyslipidemia PFO History of pulmonary embolism Anemia, history of anemia with no source of bleeding Intermediate probability of PE reported on VQ scan PLAN: Continue current cardiac medications Decrease metoprolol tartrate 212.5 mg daily at noon time Continue telemetry monitoring Continue to monitor blood pressure Further recommendations pending patient's course Nurse practitioner note has been reviewed by physician. Signing provider agrees with the documented findings, assessment, and plan of care. Objective - Vital Signs Vital signs: Vital Signs Temp 97.6 F 05/11/22 09:17 Pulse 81 05/11/22 09:17 Resp 18 05/11/22 09:17 BP 99/58 05/11/22 09:17 Pulse Ox 99 05/11/22 09:17 FiO2 Intake & Output 05/10/22 05/11/22 05/11/22 18:59 06:59 18:59 Intake Total 1074 180 Output Total 450 350 Balance 624 -350 180 Weight 62.6 kg Intake: Oral 1074 180 Output: Urine 450 350 Other: Voiding Method Indwelling Catheter Indwelling Catheter Indwelling Catheter - Labs CBC & Chem 7: 05/10/22 08:40 05/11/22 10:00 Labs: Abnormal Lab Results - Last 24 Hours (Table) 05/11/22 Range/Units 10:00 Chloride 96 L (98-107) mmol/L BUN 74 H (7-17) mg/dL Creatinine 2.68 H (0.52-1.04) mg/dL Glucose 124 H (74-99) mg/dL
[2022-05-11] MEDS: METOPROLOL TARTRATE 12.5 MG TAB PO SCH (12:41)
[2022-05-11] MEDS: BUMETANIDE 0.25 MG/ML 10 ML VIAL IV SCH (12:41)
--- NOTE | 2022-05-11 13:24 | P.PN ---
Subjective Patient is seen for follow-up for acute kidney injury. Currently being diuresed and maintained on Bumex 2 mg IV daily. Blood pressure has been low and patient is maintained on midodrine 10 mg 3 times a day Systolic blood pressure remains in the 90s Patient has refused cardiac catheterization No complaints of shortness of breath or chest pain. A bladder scan showed more than 400 mL and a Rider catheter was placed. .Only 50-60 mL was obtained on straight catheterization. 24 hour output at 1.3 L for last 24 hours Objective - Vital Signs Vital signs: Vital Signs Temp 98.0 F 05/11/22 12:00 Pulse 92 05/11/22 12:00 Resp 16 05/11/22 12:00 BP 94/58 05/11/22 12:00 Pulse Ox 93 L 05/11/22 12:00 FiO2 Intake & Output 05/10/22 05/11/22 05/11/22 18:59 06:59 18:59 Intake Total 1074 180 Output Total 450 350 Balance 624 -350 180 Weight 62.6 kg Intake: Oral 1074 180 Output: Urine 450 350 Other: Voiding Method Indwelling Catheter Indwelling Catheter Indwelling Catheter - Exam Awake, comfortable, not in any acute distress Examination of the heart S1 and S2 Examination lungs decreased breath sounds at the bases , basal crackles Abdomen is soft nontender Examination of lower extremities shows 2+ edema 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 Acute kidney injury secondary to ATN secondary to cardiorenal syndrome. Renal function worse. Creatinine 2.8. UA benign. No hydronephrosis noted on kidney ultrasound. possible urine retention status post Rider catheter placement. Can try voiding trial 2. Chronic kidney disease stage IIIB with baseline creatinine in the range of 1.5-1.7 secondary to nephrosclerosis and cardiorenal syndrome. 3. Volume overload. Improved with diuresis. 4. Acute hypoxic respiratory failure. 5. Acute on chronic diastolic CHF with mild to moderate mitral regurgitation, severe tricuspid regurgitation and pulmonary hypertension. 6. Hypervolemic hyponatremia. Stable. 7. Hypokalemia from diuresis. Replaced. Better. 8. Anemia of chronic kidney disease. Iron deficiency noted. Plan: Can DC Rider catheter. Continue to monitor for urine retention and replace catheter if patient has significant retention. Continue with IV Bumex Continue with midodrine as well.
--- NOTE | 2022-05-11 15:55 | P.PN ---
Subjective Progress Note Date: 05/11/22 H&P Date: 05/04/22 Chief Complaint: Worsening exertional dyspnea, bilateral lower extremity edema This is a 77-year-old female with past medical history of peptic ulcer disease, diverticulosis ,chronic persistent atrial fibrillation on Eliquis, hypertension, hyperlipidemia, severe pulmonary hypertension, severe tricuspid regurgitation, gastroesophageal reflux disease, chronic respiratory failure, wears 6 L at home, former nicotine dependenceand multiple other medical issues referred to the ER per cardiology yesterday. Diuretics had been adjusted outpatient, without improvement. Patient reports she had worsening exertional dyspnea over the last few months accompanied by lower extremity edema denies chest pain, palpitations or cough.Reports compliance with med regimen. IV diuretics initiated in the ER. Echo 02/02/2022 reported normal LV systolic function, severe right ventricular dilation with severe pulmonary hypertension, right ventricular apical hypokinesis, severe tricuspid regurgitation. EKG reporting atrial fibrillation, nonspecific T-waves, incomplete right bundle branch block. Troponin 0.036, 0.030, 0.031. ProBNP 9160. Chest x-ray reporting moderate cardiomegaly, diffuse interstitial densities with mild patchy bilateral infiltrates.Sodium 134, potassium 3-receiving supplementation, BUN 96, creatinine decreased to 2.1, hemoglobin 10.2. 05/05/2022 VQ scan reported intermittently probability for PE. Venous duplex pending.d-dimer pending .echo pending. Denies rectal bleeding, denies black stools .reports no bowel movement since admission . Diuresing on Bumex with 24- hour I&O reporting reporting decrease in weight of 0.5 kg ,breathing easier .blood pressures soft, maintaining O2 sats in the mid 90s on 6 L nasal cannula. Hemoglobin decreased to 8.6, BUN 92, creatinine 2.15 .echo pending . 05/06/2022 Dopplers of bilateral lower extremities reported negative for DVTs. Slept well. Denies chest pain, palpitations or shortness of breath. Revatio initiated. Scheduled for cardiac catheterization tomorrow with cardiology. Ultrasound of kidneys reporting no hydronephrosis with evidence of chronic medical renal disease. Continues to diuresing on IV push Bumex. BUN 19, creatinine 2.15. Maintaining O2 sats in the 90s on 6 L nasal cannula. 05/07/2022 Echo reported EF 55%, severe pulmonary hypertension, RVSP 75 mmHg , dilated RV, moderate mitral regurgitation, severe tricuspid regurgitation ,small circumferential pericardial effusion .denies chest pain, palpitations or shortness of breath. Maintained on gentle IV fluid hydration . Bumex placed on hold last night as per nephrology. creatinine worsening, 2.44. Tentatively scheduled for cardiac catheterization this morning. Maintaining O2 sats in the 90s on 6 L nasal cannula. 05/10/2022 maintained on Revatio. Declined cardiac catheterization, given her risk of potentially requiring renal replacement therapy. Rider catheter placed yesterday for urinary retention of greater than 400ml. Diuresing on IV Bumex, creatinine worsening, 2.88. Eliquis resumed, hemoglobin stable. Complains of increased weakness .Evaluated by PT, currently recommending home care. Denies chest pain, palpitations or shortness of breath. Denies cough. 05/11/2022 maintained on metoprolol tartrate ,midodrine. developed hypotension yesterday, blood pressures soft this morning. Beta thomas dose /frequency decreased. Continues being diuresed on Bumex IV as per nephrology. BMP pending. Objective - Vital Signs Vital signs: Vital Signs Temp 98.0 F 05/11/22 12:00 Pulse 92 05/11/22 12:00 Resp 16 05/11/22 12:00 BP 94/58 05/11/22 12:00 Pulse Ox 93 L 05/11/22 12:00 FiO2 Intake & Output 05/10/22 05/11/22 05/11/22 18:59 06:59 18:59 Intake Total 1074 360 Output Total 450 350 Balance 624 -350 360 Weight 62.6 kg Intake: Oral 1074 360 Output: Urine 450 350 Other: Voiding Method Indwelling Catheter Indwelling Catheter Indwelling Catheter - Exam - Exam PHYSICAL EXAM: VITAL SIGNS: As above GENERAL: Alert and oriented 3, Sitting up in bed, no acute distress HEENT: Conjunctivae normal. eyes normal. NECK: Supple, no JVD. CARDIOVASCULAR: S1, S2, irregular. Systolic murmur. RESPIRATION: Unlabored, Breath sounds CTA,diminished in the bases. ABDOMEN: Soft, nondistended, nontender . No guarding. no masses palpable.Bowel sounds heard. LEGS: decreased edema, no clubbing, no cyanosis, +DP NERVOUS SYSTEM: Cranial N 2-12 grossly normal. No focal deficits. Strength and sensation grossly intact. Skin: Warm and dry, no rash - Labs CBC & Chem 7: 05/10/22 08:40 05/11/22 10:00 Labs: Abnormal Lab Results - Last 24 Hours (Table) 05/11/22 Range/Units 10:00 Chloride 96 L (98-107) mmol/L BUN 74 H (7-17) mg/dL Creatinine 2.68 H (0.52-1.04) mg/dL Glucose 124 H (74-99) mg/dL Assessment and Plan Assessment: Acute on chronic congestive heart failure, diastolic dysfunction, preserved EF Severe pulmonary hypertension, RVSP 76, etiology unclear Chronic hypoxic respiratory failure, wears 6 L nasal cannula O2 at home Acute renal failure. Urinary retention status post Rider catheter Chronic kidney disease stage III secondary to cardiorenal syndrome History of Covid-19 pneumonia, 06/28 Chronic Pulmonary hypertension, severe Chronic persistent atrial fibrillation, anticoagulated on Eliquis, dose decreased. CAD Hypertension Severe tricuspid regurgitation Former nicotine dependence Plan: Continue on current medication regime ,monitoring and symptomatic treatment. BMP pending. Diuretics as per nephrology. Antihypertensives adjusted. Rider catheter discontinued, voiding trial in progress with post void residuals. Reports exertional weakness-evaluated by PT OT recommending home/home care Close monitoring of renal function with repeat labs ordered for a.m. Discharge planning in progress soon, pending cardiology and nephrology's f [facility] recommendations and clearance. The impression and plan of care has been dictated as directed. : I performed a history and examination of this patient, discussed the same with the dictator. I agree with the dictator's note ,documented as a scribe. Any additional findings or plans will be noted.
[2022-05-12] MEDS: MIDODRINE 5 MG TAB PO SCH ×3 (06:00→18:11)
[2022-05-12] MEDS: ATORVASTATIN 40 MG TAB PO SCH (09:42)
[2022-05-12] MEDS: APIXABAN 2.5 MG TABLET PO SCH ×2 (09:42→20:29)
[2022-05-12] MEDS: PANTOPRAZOLE 40 MG TABLET PO SCH (09:42)
[2022-05-12] MEDS: SPIRONOLACTONE 25 MG TAB PO SCH (09:42)
[2022-05-12] MEDS: polyethylene glycoL 3350 17 GM POWD.PACK PO SCH (09:43)
[2022-05-12 10:26] LABS: Anisocytosis Marked; Basophils # (A) 0.1 k/uL (0-0.2); Basophils % (A) 2 %; Eosinophils # (A) 0.3 k/uL (0-0.7); Eosinophils % (A) 4 %; HCT 28.3 % (34.0-46.0); HGB 8.6 gm/dL (11.4-16.0); Hypochromasia Marked; Lymphocytes # (A) 0.9 k/uL (1.0-4.8); Lymphocytes % (A) 14 %; MCH 28.5 pg (25.0-35.0); MCHC 30.4 g/dL (31.0-37.0); MCV 93.6 fL (80.0-100.0); Macrocytosis Slight; Monocytes # (A) 0.3 k/uL (0-1.0); Monocytes % (A) 5 %; Neutrophils # (A) 4.9 k/uL (1.3-7.7); Neutrophils % (A) 74 %; Platelet Count 250 k/uL (150-450); Poikilocytosis Slight; RBC 3.03 m/uL (3.80-5.40); RDW 24.1 % (11.5-15.5); WBC 6.7 k/uL (3.8-10.6)
[2022-05-12 10:32] LABS: Albumin 3.5 g/dL (3.5-5.0); Calcium 9.3 mg/dL (8.4-10.2); Magnesium 2.2 mg/dL (1.6-2.3); Potassium 4.1 mmol/L (3.5-5.1); Total Bilirubin 2.4 mg/dL (0.2-1.3); Total Protein 5.7 g/dL (6.3-8.2)
--- NOTE | 2022-05-12 11:02 | P.DS ---
Providers Date of admission: 05/03/22 15:46 Expected date of discharge: 05/12/22 Attending physician: Riki Toth MD Consults: 05/03/22 15:45 Consult Physician Routine Consulting Provider: Hailey Goldman Consult Reason/Comments: chf Do you want consulting provider notified?: Yes 05/04/22 15:14 Consult Physician Routine Consulting Provider: Jimi Lira Consult Reason/Comments: Renal failure, CHF Do you want consulting provider notified?: Yes 05/05/22 08:53 Consult Physician Routine Consulting Provider: Emilee Dawson Consult Reason/Comments: shortness of breath, pulmonary hypertension vs PE Do you want consulting provider notified?: Already Contacted Primary care physician: Nuvia Lerner [facility] Course: Final Diagnoses: Acute on chronic congestive heart failure, diastolic dysfunction, preserved EF Severe pulmonary hypertension, RVSP 76, etiology unclear Chronic hypoxic respiratory failure, wears 6 L nasal cannula O2 at home Acute renal failure. Urinary retention status post Rider catheter Chronic kidney disease stage III secondary to cardiorenal syndrome History of Covid-19 pneumonia, 06/28 Chronic Pulmonary hypertension, severe Chronic persistent atrial fibrillation, anticoagulated on Eliquis, dose decreased. CAD Hypertension Severe tricuspid regurgitation Former nicotine dependence Hospital course:This is a 77-year-old female with past medical history of peptic ulcer disease, diverticulosis ,chronic persistent atrial fibrillation on Eliquis, hypertension, hyperlipidemia, severe pulmonary hypertension, severe tricuspid regurgitation, gastroesophageal reflux disease, chronic respiratory failure, wears 6 L at home, former nicotine dependenceand multiple other medical issues referred to the ER per cardiology yesterday. Diuretics had been adjusted outpatient, without improvement. Patient reports she had worsening exertional dyspnea over the last few months accompanied by lower extremity edema denies chest pain, palpitations or cough.Reports compliance with med regimen. IV diuretics initiated in the ER. Echo 02/02/2022 reported normal LV systolic function, severe right ventricular dilation with severe pulmonary hypertension, right ventricular apical hypokinesis, severe tricuspid regurgitation. EKG reporting atrial fibrillation, nonspecific T-waves, incomplete right bundle branch block. Troponin 0.036, 0.030, 0.031. ProBNP 9160. Chest x-ray reporting moderate cardiomegaly, diffuse interstitial densities with mild patchy bilateral infiltrates.Sodium 134, potassium 3-receiving supplementation, BUN 96, creatinine decreased to 2.1, hemoglobin 10.2. 05/05/2022 VQ scan reported intermittently probability for PE. Venous duplex pending.d-dimer pending .echo pending. Denies rectal bleeding, denies black stools .reports no bowel movement since admission . Diuresing on Bumex with 24- hour I&O reporting reporting decrease in weight of 0.5 kg ,breathing easier .blood pressures soft, maintaining O2 sats in the mid 90s on 6 L nasal cannula. Hemoglobin decreased to 8.6, BUN 92, creatinine 2.15 .echo pending . 05/06/2022 Dopplers of bilateral lower extremities reported negative for DVTs. Slept well. Denies chest pain, palpitations or shortness of breath. Revatio initiated. Scheduled for cardiac catheterization tomorrow with cardiology. Ultrasound of kidneys reporting no hydronephrosis with evidence of chronic medical renal disease. Continues to diuresing on IV push Bumex. BUN 19, creatinine 2.15. Maintaining O2 sats in the 90s on 6 L nasal cannula. 05/07/2022 Echo reported EF 55%, severe pulmonary hypertension, RVSP 75 mmHg , dilated RV, moderate mitral regurgitation, severe tricuspid regurgitation ,small circumferential pericardial effusion .denies chest pain, palpitations or shortness of breath. Maintained on gentle IV fluid hydration . Bumex placed on hold last night as per nephrology. creatinine worsening, 2.44. Tentatively scheduled for cardiac catheterization this morning. Maintaining O2 sats in the 90s on 6 L nasal cannula. 05/10/2022 maintained on Revatio. Declined cardiac catheterization, given her risk of potentially requiring renal replacement therapy. Rider catheter placed yesterday for urinary retention of greater than 400ml. Diuresing on IV Bumex, creatinine worsening, 2.88. Eliquis resumed, hemoglobin stable. Complains of increased weakness .Evaluated by PT, currently recommending home care. Denies chest pain, palpitations or shortness of breath. Denies cough. 05/11/2022 maintained on metoprolol tartrate ,midodrine. developed hypotension yesterday, blood pressures soft this morning. Beta thomas dose /frequency decreased. Continues being diuresed on Bumex IV as per nephrology. BMP pending. Significant clinical improvement. Patient will be discharged today in a stable condition with guarded prognosis pending final DC recommendations and clearance per cardiology and nephrology. The impression and plan of care has been dictated as directed. : I performed a history and examination of this patient, discussed the same with the dictator. I agree with the dictator's note ,documented as a scribe. Any additional findings or plans will be noted. Patient Condition at Discharge: Stable Plan - Discharge Summary Discharge Rx Participant: No New Discharge Prescriptions: New Metoprolol Tartrate [Lopressor] 12.5 mg PO DAILY@12 #30 tab Sildenafil [Revatio] 20 mg PO TID #90 tab Midodrine [ProAmatine] 10 mg PO TID #180 tablet Continue Ipratropium-Albuterol Nebulize [Duoneb 0.5 mg-3 mg/3 ml Soln] 3 ml INHALATION RT-BID PRN PRN Reason: Shortness Of Breath Acetaminophen [Tylenol] 325 mg PO TID PRN PRN Reason: Pain Albuterol Sulfate [Ventolin HFA] 1 puff INHALATION RT-Q4H PRN PRN Reason: Shortness Of Breath Potassium Chloride ER [K-Dur 10] 10 meq PO BID Furosemide [Lasix] 40 mg PO BID Apixaban [Eliquis] 2.5 mg PO BID 30 Days #60 tab Wheat Dextrin [Benefiber] 1 packet PO DAILY Fluticasone Propion/Salmeterol [Fluticasone-Salmeterol 250-50] 1 puff INHALATION RT-BID Spironolactone 25 mg PO DAILY Atorvastatin [Lipitor] 40 mg PO DAILY Pantoprazole [Protonix] 40 mg PO DAILY 30 Days #30 tab metOLazone [Zaroxolyn] 5 mg PO Q48H PRN PRN Reason: Edema Discontinued Metoprolol Tartrate [Lopressor] 25 mg PO BID Discharge Medication List Acetaminophen [Tylenol] 325 mg PO TID PRN 06/26/21 [History] Fluticasone Propion/Salmeterol [Fluticasone-Salmeterol 250-50] 1 puff INHALATION RT-BID 06/26/21 [History] Ipratropium-Albuterol Nebulize [Duoneb 0.5 mg-3 mg/3 ml Soln] 3 ml INHALATION RT-BID PRN 06/26/21 [History] Albuterol Sulfate [Ventolin HFA] 1 puff INHALATION RT-Q4H PRN 02/01/22 [History] Atorvastatin [Lipitor] 40 mg PO DAILY 02/01/22 [History] Furosemide [Lasix] 40 mg PO BID 02/01/22 [History] Potassium Chloride ER [K-Dur 10] 10 meq PO BID 02/01/22 [History] Spironolactone 25 mg PO DAILY 02/01/22 [History] Apixaban [Eliquis] 2.5 mg PO BID 30 Days #60 tab 02/06/22 [Rx] Pantoprazole [Protonix] 40 mg PO DAILY 30 Days #30 tab 02/06/22 [Rx] Wheat Dextrin [Benefiber] 1 packet PO DAILY 05/03/22 [History] metOLazone [Zaroxolyn] 5 mg PO Q48H PRN 05/03/22 [History] Metoprolol Tartrate [Lopressor] 12.5 mg PO DAILY@12 #30 tab 05/12/22 [Rx] Midodrine [ProAmatine] 10 mg PO TID #180 tablet 05/12/22 [Rx] Sildenafil [Revatio] 20 mg PO TID #90 tab 05/12/22 [Rx] Follow up Appointment(s)/Referral(s): Hailey Goldman MD [STAFF PHYSICIAN] - 1 Week Aging,[place] [facility] [NON-STAFF] - [facility], [NON-STAFF] - 1-2 Days Nuvia Lerner MD [Primary Care Provider] - 05/14/22 11:00 am (office in [facility] WITH DR TOTH) Discharge/Stand Alone Forms: Who Do I Call?, Community Resources, Personal Contracts Attorney
[2022-05-12] MEDS: SILDENAFIL 20 MG TAB PO SCH ×3 (11:48→20:30)
[2022-05-12] MEDS: METOPROLOL TARTRATE 12.5 MG TAB PO SCH (13:07)
[2022-05-12] MEDS: BUMETANIDE 0.25 MG/ML 10 ML VIAL IV SCH (13:09)
[2022-05-12] MEDS: diphenhydrAMINE 25 MG CAP PO PRN ×2 (13:13→20:30)
--- NOTE | 2022-05-12 16:58 | P.PN ---
Subjective Patient is seen for follow-up for acute kidney injury. Currently being diuresed and maintained on Bumex 2 mg IV daily. Blood pressure has been low and patient is maintained on midodrine 10 mg 3 times a day Systolic blood pressure remains in the 90s Patient has refused cardiac catheterization No complaints of shortness of breath or chest pain. Rider catheter was removed yesterday. Patient has been voiding however a post void scan has not been checked. No significant complaints today Objective - Vital Signs Vital signs: Vital Signs Temp 97.9 F 05/12/22 12:00 Pulse 97 05/12/22 12:00 Resp 18 05/12/22 12:00 BP 94/58 05/12/22 12:00 Pulse Ox 95 05/12/22 12:00 FiO2 Intake & Output 05/11/22 05/12/22 05/12/22 18:59 06:59 18:59 Intake Total 540 240 558 Output Total 1025 450 200 Balance -485 -210 358 Weight 62.5 kg Intake: IV 20 Invasive Line 3 20 Oral 540 240 538 Output: Urine 1025 450 200 Other: Voiding Method Indwelling Catheter Bedside Commode Indwelling Catheter # Voids 1 # Bowel Movements 1 1 - Exam Awake, comfortable, not in any acute distress Examination of the heart S1 and S2 Examination lungs decreased breath sounds at the bases , basal crackles Abdomen is soft nontender Examination of lower extremities shows 2+ edema 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 Acute kidney injury secondary to ATN secondary to cardiorenal syndrome. Renal function worse. Creatinine 2.8. UA benign. No hydronephrosis noted on kidney ultrasound. possible urine retention status post Rider catheter removal. Check post void scan 2. Chronic kidney disease stage IIIB with baseline creatinine in the range of 1.5-1.7 secondary to nephrosclerosis and cardiorenal syndrome. 3. Volume overload. Improved with diuresis. 4. Acute hypoxic respiratory failure. 5. Acute on chronic diastolic CHF with mild to moderate mitral regurgitation, severe tricuspid regurgitation and pulmonary hypertension. 6. Hypervolemic hyponatremia. Stable. 7. Hypokalemia from diuresis. Replaced. Better. 8. Anemia of chronic kidney disease. Iron deficiency noted. Plan: Check post void bladder scan If patient continues to have urine retention Rider catheter will be replaced and she will need to follow-up with urology as outpatient. Continue with midodrine post discharge Follow-up as outpatient in 1 week's time. Patient may need to start renal replacement therapy soon.
[2022-05-13] MEDS: MIDODRINE 5 MG TAB PO SCH ×2 (06:36→11:59)
[2022-05-13] MEDS: diphenhydrAMINE 25 MG CAP PO PRN (06:36)
--- NOTE | 2022-05-13 08:09 | PN ---
PROGRESS NOTE SUBJECTIVE: Mrs. Hinton is a lady with severe pulmonary hypertension who is doing fairly well. Compared to yesterday, her overall functional capacity is slightly better. She is not in chest pain, but overall prognosis remains poor. OBJECTIVE: VITAL SIGNS: Stable. NECK: JVD is evident. HEART: S1, S2 are normal, short systolic murmur noted. LUNGS: Reveal diminished air entry. ABDOMEN: Exam unchanged. LOWER EXTREMITIES: Exam unchanged. PLAN: To continue current medications, and she can be discharged whenever okay by the admitting doctor. I will see her as needed. MMODL / IJN: [id number] /
[2022-05-13] MEDS: polyethylene glycoL 3350 17 GM POWD.PACK PO SCH (08:53)
[2022-05-13] MEDS: PANTOPRAZOLE 40 MG TABLET PO SCH (08:54)
[2022-05-13] MEDS: SILDENAFIL 20 MG TAB PO SCH (08:54)
[2022-05-13] MEDS: ATORVASTATIN 40 MG TAB PO SCH (08:54)
[2022-05-13] MEDS: APIXABAN 2.5 MG TABLET PO SCH (08:54)
[2022-05-13] MEDS: SPIRONOLACTONE 25 MG TAB PO SCH (08:55)
--- NOTE | 2022-05-13 11:52 | P.PN ---
Subjective Patient is seen for follow-up for acute kidney injury. Currently being diuresed and maintained on Bumex 2 mg IV daily. Blood pressure has been low and patient is maintained on midodrine 10 mg 3 times a day Systolic blood pressure remains in the 90s Patient has refused cardiac catheterization No complaints of shortness of breath or chest pain. Rider catheter was removed but post void residuals were elevated around 400 and therefore Rider catheter was replaced. Objective - Vital Signs Vital signs: Vital Signs Temp 98.3 F 05/13/22 08:10 Pulse 97 05/13/22 08:10 Resp 18 05/13/22 08:10 BP 108/73 05/13/22 08:10 Pulse Ox 95 05/13/22 08:10 FiO2 Intake & Output 05/12/22 05/13/22 05/13/22 18:59 06:59 18:59 Intake Total 818 360 Output Total 650 1120 Balance 168 -1120 360 Intake: IV 20 Invasive Line 3 20 Oral 798 360 Output: Urine 650 1120 Uretheral (Rider) 450 720 Other: Voiding Method Indwelling Catheter Indwelling Catheter Indwelling Catheter # Bowel Movements 1 - Exam Awake, comfortable, not in any acute distress Examination of the heart S1 and S2 Examination lungs decreased breath sounds at the bases , basal crackles Abdomen is soft nontender Examination of lower extremities shows 2+ edema PARTS TECHNICIAN exam grossly intact - Labs CBC & Chem 7: 05/12/22 09:45 05/12/22 09:45 Assessment and Plan Assessment: 1. Acute kidney injury secondary to ATN secondary to cardiorenal syndrome. Renal function worse. Creatinine 2.6. UA benign. No hydronephrosis noted on kidney ultrasound. possible urine retention status post Rider catheter removal. Check post void scan 2. Chronic kidney disease stage IIIB with baseline creatinine in the range of 1.5-1.7 secondary to nephrosclerosis and cardiorenal syndrome. 3. Volume overload. Improved with diuresis. 4. Acute hypoxic respiratory failure. 5. Acute on chronic diastolic CHF with mild to moderate mitral regurgitation, severe tricuspid regurgitation and pulmonary hypertension. 6. Hypervolemic hyponatremia. Stable. 7. Hypokalemia from diuresis. Replaced. Better. 8. Anemia of chronic kidney disease. Iron deficiency noted. Plan: Continue with Rider catheter. Patient will need follow-up with urology post discharge. Can switch Bumex 2 by mouth.
[2022-05-13] MEDS: BUMETANIDE 0.25 MG/ML 10 ML VIAL IV SCH (11:59)
[2022-05-13] MEDS: METOPROLOL TARTRATE 12.5 MG TAB PO SCH (11:59)
[2022-05-13 12:01] VITALS: BP 96/59; RESP 15; TEMP 98.1
[2022-05-13 12:06] VITALS: PULSE 85
--- NOTE | 2022-05-16 20:38 | CDI ---
Documentation Clarification Form Date: 05/16/2022 08:24:00 PM From: Robyn Mortensen Phone: Admit Date: 05/03/2022 03:46:00 PM Patient Name: Selena Hinton Visit Number: [id number] Discharge Date: 05/13/2022 02:39:00 PM ATTENTION: The Clinical Documentation Specialists (CDI) and [facility] Coding Staff appreciate your assistance in clarifying documentation. Please respond to the clarification below the line at the bottom and electronically sign. The CDI & [facility] Coding staff will review the response and follow-up if needed. Please note: Queries are made part of the Legal Health Record. If you have any questions, please contact the author of this message via ITS. Dr. 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 Escobedo Progress Note 05/05/22 which may lack sufficient clinical evidence/support in the medical record. Additional clarification is requested. History/Risk Factors: 76yo F, ATN on CKD 3b, ACHRF, ACDHF, chronic persistent A Fib, PHTN, Clinical Indicators: Echo: Normal left ventricular dimension and systolic function. Moderate mitral regurgitation Dilated right ventricle. Severe tricuspid regurgitation. Small circumferential pericardial effusion Treatment: Obtain repeat Echocardiogram to evaluate right sided pressures VQ scan revealed intermediate possibility for PE Please clarify if chronic thromboembolic PHTN is a valid diagnosis? [ ] Yes, Chronic thromboembolic PHTN is present as evidence by (additional clinical support): [ ] No, Chronic thromboembolic PHTN is ruled out [ ] Other (please specify diagnosis) [ ] Unable to determine (Template Last Revised: October 2020) Yes, Chronic thromboembolic PHTN is present as evidence by dilated right ventricle MTDD
== END 2022-05-13 14:39 | disposition home or self-care (01) | DRG 291 ==
LOC: EC 14:17 → 3SCARD 15:46
PROVIDERS: ADMIT Family Medicine; ATTEND Family Medicine
DX: I13.0 Hypertensive heart and chronic kidney disease with heart failure and stage 1 through stage 4 chronic kidney disease, or unspecified chronic kidney disease (principal); I50.33 Acute on chronic diastolic (congestive) heart failure; N17.0 Acute kidney failure with tubular necrosis; J96.21 Acute and chronic respiratory failure with hypoxia; I31.39 Other pericardial effusion (noninflammatory); E87.1 Hypo-osmolality and hyponatremia; I48.11 Longstanding persistent atrial fibrillation; Q21.12 Patent foramen ovale; I25.10 Atherosclerotic heart disease of native coronary artery without angina pectoris; I27.20 Pulmonary hypertension, unspecified; I27.24 Chronic thromboembolic pulmonary hypertension; D63.1 Anemia in chronic kidney disease; I08.1 Rheumatic disorders of both mitral and tricuspid valves; N18.32 Chronic kidney disease, stage 3b; J44.9 Chronic obstructive pulmonary disease, unspecified; I95.9 Hypotension, unspecified; Z79.01 Long term (current) use of anticoagulants; E78.5 Hyperlipidemia, unspecified; I45.10 Unspecified right bundle-branch block; M19.041 Primary osteoarthritis, right hand; M19.042 Primary osteoarthritis, left hand; E61.1 Iron deficiency; E87.6 Hypokalemia; R35.0 Frequency of micturition; R55 Syncope and collapse; R33.9 Retention of urine, unspecified; R53.81 Other malaise; Z87.891 Personal history of nicotine dependence; Z86.16 Personal history of COVID-19; Z87.01 Personal history of pneumonia (recurrent); Z79.899 Other long term (current) drug therapy; Z79.51 Long term (current) use of inhaled steroids; Z87.11 Personal history of peptic ulcer disease; Z86.711 Personal history of pulmonary embolism; Z87.19 Personal history of other diseases of the digestive system
CPT/HCPCS: 36415; 71046; 76770; 78582; 80048; 80053; 81003; 82533; 82728; 83540; 83550; 83605; 83735; 83880; 84484; 85025; 85027; 85379; 85610; 85730; 87635; 93005; 93306; 93970; 94760; 96374; 99285

== ENCOUNTER 2022-05-18 20:24 | Inpatient (IN) | payer MEDICARE ==
[2022-05-18] MEDS ORDERED: FUROSEMIDE 10 MG/ML 4 ML VIAL IV STA (21:09)
--- NOTE | 2022-05-18 21:23 | ED ---
SOB HPI - General Chief Complaint: Shortness of Breath Stated Complaint: Shortness of Breath Time Seen by Provider: 05/18/22 20:53 Source: patient, EMS Mode of arrival: EMS - History of Present Illness Initial Comments: This is a pleasant 77-year-old female with a history of atrial fibrillation, congestive heart failure, and COPD. Patient had a recent admission for congestive heart failure. Patient apparently was running low on her blood pressure. Patient also had an exacerbation congestive heart.. Patient multiple medication changes. Patient states she was discharged on Tuesday. She was doing well up until last night. However, today she started having shortness of breath. A home nurse came over to check her Rider catheter apparently which was dislodged and leaking around the catheter. She noted that the patient was hypotensive and the patient had increased work of breathing. She denies any chest pain. Noted the patient had several medication changes with regards to her diuretics and blood pressure medications. Increased edema to both lower extremities since being discharged. No headache, no fever or chills, no changes in vision or hearing, no sore throat or difficulty with speech, no neck pain, no shortness of breath, no abdominal pain, no nausea or vomiting, no changes in urination or bowel movements, no numbness or tingling, no extremity pain, no skin rashes or lesions. Past medical, surgical, social, and family history reviewed. - Related Data Home Medications Medication Instructions Recorded Confirmed Acetaminophen [Tylenol] 325 mg PO TID PRN 06/26/21 05/18/22 Fluticasone Propion/Salmeterol 1 puff INHALATION RT-BID 06/26/21 05/18/22 [Fluticasone-Salmeterol 250-50] Ipratropium-Albuterol Nebulize 3 ml INHALATION RT-BID PRN 06/26/21 05/18/22 [Duoneb 0.5 mg-3 mg/3 ml Soln] Albuterol Sulfate [Ventolin HFA] 1 puff INHALATION RT-Q4H PRN 02/01/22 05/18/22 Atorvastatin [Lipitor] 40 mg PO DAILY 02/01/22 05/18/22 Furosemide [Lasix] 40 mg PO BID 02/01/22 05/18/22 Potassium Chloride ER [K-Dur 10] 10 meq PO BID 02/01/22 05/18/22 Spironolactone 25 mg PO DAILY 02/01/22 05/18/22 Wheat Dextrin [Benefiber] 1 packet PO DAILY 05/03/22 05/18/22 metOLazone [Zaroxolyn] 5 mg PO Q48H PRN 05/03/22 05/18/22 Metoprolol Succinate [Metoprolol 12.5 mg PO DAILY@1200 05/18/22 05/18/22 Succinate ER] Previous Rx's Medication Instructions Recorded Apixaban [Eliquis] 2.5 mg PO BID 30 Days #60 tab 02/06/22 Pantoprazole [Protonix] 40 mg PO DAILY 30 Days #30 tab 02/06/22 Midodrine [ProAmatine] 10 mg PO TID #180 tablet 05/12/22 Sildenafil [Revatio] 20 mg PO TID #90 tab 05/12/22 Allergies Allergy/AdvReac Type Severity Reaction Status Date / Time No Known Allergies Allergy Verified 05/18/22 22:13 Review of Systems ROS Statement: Those systems with pertinent positive or pertinent negative responses have been documented in the HPI. ROS Other: All systems not noted in ROS Statement are negative. Past Medical History Past Medical History: Atrial Fibrillation, Blood Disorder, GERD/Reflux, Hyperlipidemia, Hypertension, Osteoarthritis (OA) Additional Past Medical History / Comment(s): Mitral regurgitation, mild to moderate pulmonary HTN-per past medical hx/pt unaware, SOB with exertion, small hiatal hernia, current bilateral lower leg edema, occasional low back pain, ar thritis bilateral hands. LOW HEMOGLOBIN- BLOOD TRANFUSIONS. 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 Past Anesthesia/Blood Transfusion Reactions: No Reported Reaction Additional Past Anesthesia/Blood Transfusion Reaction / Comment(s): no hx blood transfusion Past Psychological History: No Psychological Hx Reported Additional Psychological History / Comment(s): Pt resides with her family. Pt st ates she doesn't get up often. Smoking Status: Former smoker Past Alcohol Use History: None Reported Additional Past Alcohol Use History / Comment(s): Pt started smoking in 1959 and quit in 1977. She was a 2ppd smoker. Past Drug Use History: None Reported - Past Family History Mother Family Medical History: Cancer Additional Family Medical History / Comment(s): bowel Father Family Medical History: COPD Additional Family Medical History / Comment(s): emphysema Brother(s) Family Medical History: Cancer Additional Family Medical History / Comment(s): Bowel cancer. General Exam General appearance: alert, in no apparent distress Head exam: Present: atraumatic, normocephalic, normal inspection Eye exam: Present: normal appearance, PERRL, EOMI. Absent: scleral icterus, conjunctival injection, periorbital swelling ENT exam: Present: normal exam, mucous membranes moist, normal external ear exam Neck exam: Present: normal inspection, full ROM. Absent: tenderness, meningismus, lymphadenopathy Respiratory exam: Present: respiratory distress, rales (Bibasal rales noted), accessory muscle use (Increased work of breathing. Patient noted be at as 100% SpO2 on a nonrebreather. I did switch her to a note nasocannula). Absent: normal lung sounds bilaterally, wheezes, rhonchi, stridor Cardiovascular Exam: Present: normal rhythm, irregular rhythm, normal heart sounds. Absent: systolic murmur, diastolic murmur, rubs, gallop, clicks GI/Abdominal exam: Present: soft, normal bowel sounds. Absent: distended, tenderness, guarding, rebound, rigid Extremities exam: Present: full ROM, normal capillary refill, pedal edema. Absent: normal inspection, tenderness, joint swelling, calf tenderness Back exam: Present: normal inspection Neurological exam: Present: alert, oriented X3, CN II-XII intact Psychiatric exam: Present: normal affect, normal mood Skin exam: Present: warm, dry, intact, normal color. Absent: rash Course Vital Signs 05/18/22 05/18/22 20:40 20:47 Temperature 98 F Pulse Rate 85 Respiratory 20 Rate Blood Pressure 107/85 O2 Sat by Pulse 100 Oximetry - Reevaluation(s) Reevaluation #1: 05/18/22 23:17 Medical record is reviewed Symptoms are improved here in the emergency department Patient is symptomatically improved. Capillary refill less than 2 seconds. No mottling. Patient's lactic acid was 2.3 Juster showed evidence of a urinary tract infection. This does raise a suspicion of possible early sepsis. - Consultations Consultation #1: Case discussed in detail with Dr. Toth. Patient will be admitted and treated for urinary tract infection. Blood pressure be monitored. Gentle hydration given the patient's history of congestive heart failure. Have evidence of lactic acidosis as well as likely urinary tract infection. Medical Decision Making - Medical Decision Making Note that the patient was given a 500 mL bolus of normal saline by EMS when they noted that she was hypotensive. Blood pressure is normalized Patient symptomology consistent with a congestive heart failure exacerbation. Patient also had a low blood pressure episode. It sounds as if the patient has had multiple medication changes and was actually put on Midrin to raise the blood pressure. They've been cutting back on her beta thomas. Patient given a 500 mL fluid bolus by EMS which may have exacerbated the CHF. Patient normally on 4 L of action via nasal cannula. Patient does have COPD. Patient at 100% on a nonrebreather when I enter the room. I did switch her to nasal cannula at 6 L. We'll try to keep her between 90-95%. EKG still showing atrial fibrillation. Patient's echocardiogram from the admission shows severe tricuspid regurgitation, mild pulmonic regurgitation, severe right atrial dilatation severe right ventricular dilatation severe pulmonary hypertension, ejection fraction was 55% Patient be treated for urinary tract infection. We'll consult cardiology. Patient's renal function actually slightly improved. BMP was lower than previous. There was no significant change to the chest x-ray. Patient was improved after a fluid bolus and a dose of Lasix here in the ER. Patient did have increasing peripheral edema. I suspect the patient does have acute exacerbation of congestive heart. Without x-ray findings. Patient also has labile blood pressure with periods of hypotension. Admitted to Dr. Toth - Lab Data Result diagrams: 05/18/22 21:05/18/22 21: Lab Results 05/18/22 05/18/22 05/18/22 Range/Units 21:01 21: 21: WBC 6.9 (3.8-10.6) k/uL RBC 3.16 L (3.80-5.40) m/uL Hgb 9.5 L (11.4-16.0) gm/dL Hct 30.7 L (34.0-46.0) % MCV 97.0 (80.0-100.0) fL MCH 29.9 (25.0-35.0) pg MCHC 30.8 L (31.0-37.0) g/dL RDW 24.7 H (11.5-15.5) % Plt Count 205 (150-450) k/uL MPV 9.9 Neutrophils % 71 % Lymphocytes % 17 % Monocytes % 8 % Eosinophils % 2 % Basophils % 1 % Neutrophils # 4.9 (1.3-7.7) k/uL Lymphocytes # 1.2 (1.0-4.8) k/uL Monocytes # 0.5 (0-1.0) k/uL Eosinophils # 0.1 (0-0.7) k/uL Basophils # 0.1 (0-0.2) k/uL Hypochromasia Marked Poikilocytosis Slight Anisocytosis Marked Macrocytosis Moderate PT 13.9 H (9.0-12.0) sec INR 1.3 H (<1.2) APTT 24.8 (22.0-30.0) sec Sodium (137-145) mmol/L Potassium (3.5-5.1) mmol/L Chloride (98-107) mmol/L Carbon Dioxide (22-30) mmol/L Anion Gap mmol/L BUN (7-17) mg/dL Creatinine (0.52-1.04) mg/dL Est GFR (CKD-EPI)AfAm (>60 ml/min/1.73 sqM) Est GFR (CKD-EPI)NonAf (>60 ml/min/1.73 sqM) Glucose (74-99) mg/dL Plasma Lactic Acid Bony (0.7-2.0) mmol/L Calcium (8.4-10.2) mg/dL Phosphorus (2.5-4.5) mg/dL Magnesium (1.6-2.3) mg/dL Total Bilirubin (0.2-1.3) mg/dL AST (14-36) U/L ALT (4-34) U/L Alkaline Phosphatase (38-126) U/L Troponin I (0.000-0.034) ng/mL NT-Pro-B Natriuret Pep pg/mL Total Protein (6.3-8.2) g/dL Albumin (3.5-5.0) g/dL Urine Color Yellow Urine Appearance Clear (Clear) Urine pH 5.5 (5.0-8.0) Ur Specific Harrison 1.011 (1.001-1.035) Urine Protein 1+ H (Negative) Urine Glucose (UA) Negative (Negative) Urine Ketones Negative (Negative) Urine Blood Large H (Negative) Urine Nitrite Negative (Negative) Urine Bilirubin Negative (Negative) Urine Urobilinogen <2.0 (<2.0) mg/dL Ur Leukocyte Esterase Small H (Negative) Urine RBC 95 H (0-5) /hpf Urine WBC 7 H (0-5) /hpf Urine Bacteria Many H (None) /hpf Hyaline Casts 4 H (0-2) /lpf Urine Mucus Rare H (None) /hpf Urine Trichomonas Rare H (None) /hpf Coronavirus (PCR) (Not Detectd) 05/18/22 05/18/22 05/18/22 Range/Units 21:01 21:01 21:01 WBC (3.8-10.6) k/uL RBC (3.80-5.40) m/uL Hgb (11.4-16.0) gm/dL Hct (34.0-46.0) % MCV (80.0-100.0) fL MCH (25.0-35.0) pg MCHC (31.0-37.0) g/dL RDW (11.5-15.5) % Plt Count (150-450) k/uL MPV Neutrophils % % Lymphocytes % % Monocytes % % Eosinophils % % Basophils % % Neutrophils # (1.3-7.7) k/uL Lymphocytes # (1.0-4.8) k/uL Monocytes # (0-1.0) k/uL Eosinophils # (0-0.7) k/uL Basophils # (0-0.2) k/uL Hypochromasia Poikilocytosis Anisocytosis Macrocytosis PT (9.0-12.0) sec INR (<1.2) APTT (22.0-30.0) sec Sodium 138 (137-145) mmol/L Potassium 4.1 (3.5-5.1) mmol/L Chloride 102 (98-107) mmol/L Carbon Dioxide 19 L (22-30) mmol/L Anion Gap 17 mmol/L BUN 57 H (7-17) mg/dL Creatinine 2.06 H (0.52-1.04) mg/dL Est GFR (CKD-EPI)AfAm 26 (>60 ml/min/1.73 sqM) Est GFR (CKD-EPI)NonAf 22 (>60 ml/min/1.73 sqM) Glucose 148 H (74-99) mg/dL Plasma Lactic Acid Bony 2.3 H* (0.7-2.0) mmol/L Calcium 9.0 (8.4-10.2) mg/dL Phosphorus 3.1 (2.5-4.5) mg/dL Magnesium 2.0 (1.6-2.3) mg/dL Total Bilirubin 1.9 H (0.2-1.3) mg/dL AST 42 H (14-36) U/L ALT 16 (4-34) U/L Alkaline Phosphatase 96 (38-126) U/L Troponin I 0.021 (0.000-0.034) ng/mL NT-Pro-B Natriuret Pep pg/mL Total Protein 6.2 L (6.3-8.2) g/dL Albumin 3.8 (3.5-5.0) g/dL Urine Color Urine Appearance (Clear) Urine pH (5.0-8.0) Ur Specific Harrison (1.001-1.035) Urine Protein (Negative) Urine Glucose (UA) (Negative) Urine Ketones (Negative) Urine Blood (Negative) Urine Nitrite (Negative) Urine Bilirubin (Negative) Urine Urobilinogen (<2.0) mg/dL Ur Leukocyte Esterase (Negative) Urine RBC (0-5) /hpf Urine WBC (0-5) /hpf Urine Bacteria (None) /hpf Hyaline Casts (0-2) /lpf Urine Mucus (None) /hpf Urine Trichomonas (None) /hpf Coronavirus (PCR) (Not Detectd) 05/18/22 05/18/22 Range/Units 21:01 21:57 WBC (3.8-10.6) k/uL RBC (3.80-5.40) m/uL Hgb (11.4-16.0) gm/dL Hct (34.0-46.0) % MCV (80.0-100.0) fL MCH (25.0-35.0) pg MCHC (31.0-37.0) g/dL RDW (11.5-15.5) % Plt Count (150-450) k/uL MPV Neutrophils % % Lymphocytes % % Monocytes % % Eosinophils % % Basophils % % Neutrophils # (1.3-7.7) k/uL Lymphocytes # (1.0-4.8) k/uL Monocytes # (0-1.0) k/uL Eosinophils # (0-0.7) k/uL Basophils # (0-0.2) k/uL Hypochromasia Poikilocytosis Anisocytosis Macrocytosis PT (9.0-12.0) sec INR (<1.2) APTT (22.0-30.0) sec Sodium (137-145) mmol/L Potassium (3.5-5.1) mmol/L Chloride (98-107) mmol/L Carbon Dioxide (22-30) mmol/L Anion Gap mmol/L BUN (7-17) mg/dL Creatinine (0.52-1.04) mg/dL Est GFR (CKD-EPI)AfAm (>60 ml/min/1.73 sqM) Est GFR (CKD-EPI)NonAf (>60 ml/min/1.73 sqM) Glucose (74-99) mg/dL Plasma Lactic Acid Bony (0.7-2.0) mmol/L Calcium (8.4-10.2) mg/dL Phosphorus (2.5-4.5) mg/dL Magnesium (1.6-2.3) mg/dL Total Bilirubin (0.2-1.3) mg/dL AST (14-36) U/L ALT (4-34) U/L Alkaline Phosphatase (38-126) U/L Troponin I (0.000-0.034) ng/mL NT-Pro-B Natriuret Pep 6970 pg/mL Total Protein (6.3-8.2) g/dL Albumin (3.5-5.0) g/dL Urine Color Urine Appearance (Clear) Urine pH (5.0-8.0) Ur Specific Harrison (1.001-1.035) Urine Protein (Negative) Urine Glucose (UA) (Negative) Urine Ketones (Negative) Urine Blood (Negative) Urine Nitrite (Negative) Urine Bilirubin (Negative) Urine Urobilinogen (<2.0) mg/dL Ur Leukocyte Esterase (Negative) Urine RBC (0-5) /hpf Urine WBC (0-5) /hpf Urine Bacteria (None) /hpf Hyaline Casts (0-2) /lpf Urine Mucus (None) /hpf Urine Trichomonas (None) /hpf Coronavirus (PCR) Not Detected (Not Detectd) - Radiology Data Radiology results: report reviewed, image reviewed Disposition Clinical Impression: Acute exacerbation of congestive heart failure, Hypotension, Lactic acidosis, Urinary tract infection Disposition: ADMITTED IP TO THIS [facility] Condition: Fair Is patient prescribed a controlled substance at d/c from ED?: No Referrals: Nuvia Lerner MD [Primary Care Provider] - 1-2 days Time of Disposition: 21:27 Decision to Admit Reason: Admit from EC
[2022-05-18 21:26] LABS: Appearance,Urine Clear (Clear); Bacteria,Urine Many /hpf; Bilirubin,Urine Negative (Negative); Blood,Urine Large (Negative); Color,Urine Yellow; Glucose,Urine (UA) Negative (Negative); Hyaline Casts,Urine 4 /lpf (0-2); Ketones,Urine Negative (Negative); Leukocyte Esterase,Urine Small (Negative); Mucus,Urine Rare /hpf; Nitrite,Urine Negative (Negative); PH, Urine 5.5 (5.0-8.0); Protein,Urine 1+ (Negative); RBC,Urine 95 /hpf (0-5); Specific Gravity,Urine 1.011 (1.001-1.035); Trichomonas,Urine Rare /hpf; Urobilinogen,Urine <2.0 mg/dL (<2.0); WBC,Urine 7 /hpf (0-5)
[2022-05-18 21:28] LABS: Albumin 3.8 g/dL (3.5-5.0); Phosphorus 3.1 mg/dL (2.5-4.5); Potassium 4.1 mmol/L (3.5-5.1); Total Bilirubin 1.9 mg/dL (0.2-1.3); Total Protein 6.2 g/dL (6.3-8.2)
[2022-05-18 21:32] LABS: INR 1.3 (<1.2); Partial Thromboplastin Time 24.8 sec (22.0-30.0); Prothrombin Time 13.9 sec (9.0-12.0)
[2022-05-18 21:39] LABS: Anisocytosis Marked; Basophils # (A) 0.1 k/uL (0-0.2); Basophils % (A) 1 %; Eosinophils # (A) 0.1 k/uL (0-0.7); Eosinophils % (A) 2 %; HCT 30.7 % (34.0-46.0); HGB 9.5 gm/dL (11.4-16.0); Hypochromasia Marked; Lymphocytes # (A) 1.2 k/uL (1.0-4.8); Lymphocytes % (A) 17 %; MCH 29.9 pg (25.0-35.0); MCHC 30.8 g/dL (31.0-37.0); Macrocytosis Moderate; Mean Platelet Volume 9.9; Monocytes # (A) 0.5 k/uL (0-1.0); Monocytes % (A) 8 %; Neutrophils # (A) 4.9 k/uL (1.3-7.7); Neutrophils % (A) 71 %; Platelet Count 205 k/uL (150-450); Poikilocytosis Slight; RBC 3.16 m/uL (3.80-5.40); RDW 24.7 % (11.5-15.5); WBC 6.9 k/uL (3.8-10.6)
--- NOTE | 2022-05-18 21:41 | XR ---
EXAMINATION TYPE: XR chest 1V portable DATE OF EXAM: 05/18/2022 COMPARISON: 05/03/2022 HISTORY: Short of breath TECHNIQUE: Single view FINDINGS: Heart is enlarged. There is coarsening of interstitial markings. No obvious heart failure. No pleural effusion. There are chest leads. IMPRESSION: Cardiomegaly. Coarse lung markings could be pulmonary fibrosis. No obvious heart failure. No significant change.
[2022-05-18] MEDS ORDERED: cefTRIAXone IN SWFI 1,000 MG/10 ML SYRINGE IVP STA (23:14)
[2022-05-18] MEDS ORDERED: FUROSEMIDE 10 MG/ML 4 ML VIAL IV SCH (23:30)
[2022-05-18] MEDS ORDERED: ONDANSETRON 4 MG/2 ML VIAL IVP PRN (23:33)
[2022-05-18] MEDS ORDERED: NALOXONE 0.4 MG/ML 1 ML VIAL IV PRN (23:33)
[2022-05-18] MEDS: SODIUM CHLORIDE 0.9% 1,000 ML IV SCH (23:40)
[2022-05-19] MEDS ORDERED: ALBUTEROL NEBULIZED 2.5 MG/3 ML INHALATION PRN (00:45)
[2022-05-19] MEDS ORDERED: IPRATROPIUM-ALBUTEROL 3 ML NEB INHALATION PRN (00:45)
[2022-05-19 03:09] LABS: Anisocytosis Marked; Basophils # (A) 0.1 k/uL (0-0.2); Basophils % (A) 1 %; Eosinophils # (A) 0.2 k/uL (0-0.7); Eosinophils % (A) 3 %; HGB 9.2 gm/dL (11.4-16.0); Hypochromasia Marked; Lymphocytes # (A) 1.1 k/uL (1.0-4.8); Lymphocytes % (A) 17 %; MCH 29.7 pg (25.0-35.0); MCHC 30.6 g/dL (31.0-37.0); Macrocytosis Moderate; Mean Platelet Volume 8.9; Monocytes # (A) 0.4 k/uL (0-1.0); Monocytes % (A) 6 %; Neutrophils # (A) 4.6 k/uL (1.3-7.7); Neutrophils % (A) 71 %; Platelet Count 191 k/uL (150-450); Poikilocytosis Slight; RBC 3.09 m/uL (3.80-5.40); WBC 6.6 k/uL (3.8-10.6)
[2022-05-19 03:19] LABS: Albumin 3.7 g/dL (3.5-5.0); Calcium 9.4 mg/dL (8.4-10.2); Phosphorus 3.5 mg/dL (2.5-4.5); Potassium 3.8 mmol/L (3.5-5.1); Total Bilirubin 1.6 mg/dL (0.2-1.3)
[2022-05-19 04:34] LABS: Appearance,Urine Clear (Clear); Bilirubin,Urine Negative (Negative); Blood,Urine Small (Negative); Color,Urine Light Yellow; Glucose,Urine (UA) Negative (Negative); Ketones,Urine Negative (Negative); Leukocyte Esterase,Urine Small (Negative); Nitrite,Urine Negative (Negative); PH, Urine 6.5 (5.0-8.0); Protein,Urine Negative (Negative); RBC,Urine 9 /hpf (0-5); Specific Gravity,Urine 1.008 (1.001-1.035); Urobilinogen,Urine <2.0 mg/dL (<2.0); WBC,Urine 7 /hpf (0-5)
[2022-05-19] MEDS: MIDODRINE 5 MG TAB PO SCH ×3 (08:06→17:03)
[2022-05-19] MEDS: ATORVASTATIN 40 MG TAB PO SCH (08:06)
[2022-05-19] MEDS: POTASSIUM CHLORIDE ER 10 MEQ TAB.ER.PRT PO SCH ×2 (08:06→20:53)
[2022-05-19] MEDS: PANTOPRAZOLE 40 MG TABLET PO SCH (08:06)
[2022-05-19] MEDS: SYMBICORT 80-4.5 MCG INHALER INHALATION SCH ×2 (08:30→19:59)
[2022-05-19] MEDS: SILDENAFIL 20 MG TAB PO SCH ×3 (10:03→20:53)
--- NOTE | 2022-05-19 10:52 | P.CRDCN ---
History of Present Illness History of present illness: The patient is a 77-year-old female with a known history of mild nonobstructive coronary artery disease, atrial fibrillation on eliquis, severe pulmonary hypertension, severe mitral regurgitation, severe tricuspid regurgitation, mild nonobstructive coronary artery disease, PFO, and dyslipidemia, hypertension, history of pulmonary embolism, chronic respiratory failure on 6 L of oxygen at home. She follows we Dr. Goldman. Patient had been having symptoms of worsening shortness of breath, lower extremity edema, symptoms of orthopnea and therefore had a lengthy hospitalization 2 weeks ago with diuresis as well as the addition of Revatio for her pulmonary hypertension. Repeat echo 05/05 which showed left ventricular ejection fraction 55% with severely dilated right ventricle and sept al flattening with somewhat improvement and RVSP to 75 however may be related to worsening right ventricular failure. Mitral regurgitation only appeared moderate. She was also noted to have severe tricuspid regurgitation. She was diuresed and felt somewhat better and discharged home. Last night she started feeling more short of breath and home nurse came found the Rider catheter had been leaking and additionally was noted to be somewhat hypotensive. Patient states she was feeling somewhat short of breath and more lightheaded and therefore came to emergency department. She does feel she has put on a little bit more fluid in the last 2 days. She believes the medication was changed at home 2-3 days ago however unsure what. Hemoglobin 9.5, white blood cell count 6.9, platelets 205, carbon dioxide 19, creatinine 2.06, lactic acid 2.3, total bilirubin 1.9, AST 42, ALT 16, troponin 0.023, proBNP 6970. Chest x-ray showed cardiomegaly with coarse lung markings may be consistent with pulmonary fibrosis. DIAGNOSTICS * Echocardiogram 06/2021 in the office patient was in normal EF, severe tricuspid regurgitation, severe pulmonary hypertension, RVSP 75 mmHg * Cardiac catheterization History: * 11/2018 revealed minimal nonobstructive coronary artery disease, cardiac output 3.4 L, pulmonary artery systolic pressure 48 with a diastolic of 18, mean of 28 mmHg. Right ventricle systolic pressure 15 with end-diastolic of 5. 2 to 3+ mitral regurgitation REVIEW OF SYSTEMS At the time of my exam: CONSTITUTIONAL: Denies fever or chills. CARDIOVASCULAR: Denies chest pain, +shortness of breath, +orthopnea, +PND Denies palpitations. +Lightheadedness RESPIRATORY: Denies cough. GASTROINTESTINAL: Denies abdominal pain, diarrhea, constipation, nausea or vomiting. MUSCULOSKELETAL: Denies myalgias. NEUROLOGIC: Denies numbness, tingling, headache or weakness. ENDOCRINE: Denies fatigue, weight change, polydipsia or polyurina. GENITOURINARY: Denies burning, hematuria or urgency with micturation. HEMATOLOGIC:+history of anemia History of bleeding. +History of PE PHYSICAL EXAMINATION Vitals reviewed CONSTITUTIONAL: No apparent distress. HEENT: Head is normocephalic. Pupils are equal, round. Sclerae anicteric. Mucous membranes of the mouth are moist. CHEST EXAMINATION: Lungs are crackles bilateral bases to auscultation. No chest wall tenderness is noted on palpation or with deep breathing. HEART EXAMINATION: Irregular rate and rhythm. S1, S2 heard. +3/6 systolic murmur, +RV heave ABDOMEN: Soft, nontender. Positive bowel sounds. EXTREMITIES: 2+ peripheral pulses, 1+ bilateral lower extremity edema and no calf tenderness. NEUROLOGIC EXAMINATION: Patient is awake, alert and oriented x3. ASSESSMENT Lightheaded episode with reported hypotension. 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 Change IV diuretics to Bumex 2 mg IV every 12 hours and monitor response. Continue with Midodrine as well as Revatio for pulmonary hypertension. Main component of her dyspnea and lightheadedness likely related to severe pulmonary hypertension and RV failure. Previously had discussed right heart catheterization to help identify and guide pulmonary hypertension treatment with possible addition of epoprostenol or others however patient had deferred. May consider outpatient workup or referral to pulmonary hypertension specialist. Continue with supportive care and further recommendations to follow. Past Medical History Past Medical History: Atrial Fibrillation, Blood Disorder, GERD/Reflux, Hyperlipidemia, Hypertension, Osteoarthritis (OA) Additional Past Medical History / Comment(s): Mitral regurgitation, mild to moderate pulmonary HTN-per past medical hx/pt unaware, SOB with exertion, small hiatal hernia, current bilateral lower leg edema, occasional low back pain, arthritis bilateral hands. LOW HEMOGLOBIN- BLOOD TRANFUSIONS. 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 Past Anesthesia/Blood Transfusion Reactions: No Reported Reaction Additional Past Anesthesia/Blood Transfusion Reaction / Comment(s): no hx blood transfusion Past Psychological History: No Psychological Hx Reported Additional Psychological History / Comment(s): Pt resides with her family. Pt states she doesn't get up often. Smoking Status: Former smoker Past Alcohol Use History: None Reported Additional Past Alcohol Use History / Comment(s): Pt started smoking in 1958 and quit in 1977. She was a 2ppd smoker. Past Drug Use History: None Reported - Past Family History Mother Family Medical History: Cancer Additional Family Medical History / Comment(s): bowel Father Family Medical History: COPD Additional Family Medical History / Comment(s): emphysema Brother(s) Family Medical History: Cancer Additional Family Medical History / Comment(s): Bowel cancer. Medications and Allergies Home Medications Medication Instructions Recorded Confirmed Type Acetaminophen [Tylenol] 325 mg PO TID PRN 06/26/21 05/18/22 History Fluticasone Propion/Salmeterol 1 puff INHALATION RT-BID 06/26/21 05/18/22 History [Fluticasone-Salmeterol 250-50] Ipratropium-Albuterol Nebulize 3 ml INHALATION RT-BID PRN 06/26/21 05/18/22 History [Duoneb 0.5 mg-3 mg/3 ml Soln] Albuterol Sulfate [Ventolin HFA] 1 puff INHALATION RT-Q4H PRN 02/01/22 05/18/22 History Atorvastatin [Lipitor] 40 mg PO DAILY 02/01/22 05/18/22 History Furosemide [Lasix] 40 mg PO BID 02/01/22 05/18/22 History Potassium Chloride ER [K-Dur 10] 10 meq PO BID 02/01/22 05/18/22 History Spironolactone 25 mg PO DAILY 02/01/22 05/18/22 History Apixaban [Eliquis] 2.5 mg PO BID 30 Days #60 tab 02/06/22 05/18/22 Rx Pantoprazole [Protonix] 40 mg PO DAILY 30 Days #30 tab 02/06/22 05/18/22 Rx Wheat Dextrin [Benefiber] 1 packet PO DAILY 05/03/22 05/18/22 History metOLazone [Zaroxolyn] 5 mg PO Q48H PRN 05/03/22 05/18/22 History Midodrine [ProAmatine] 10 mg PO TID #180 tablet 05/12/22 05/18/22 Rx Sildenafil [Revatio] 20 mg PO TID #90 tab 05/12/22 05/18/22 Rx Metoprolol Succinate [Metoprolol 12.5 mg PO DAILY@1200 05/18/22 05/18/22 History Succinate ER] Allergies Allergy/AdvReac Type Severity Reaction Status Date / Time No Known Allergies Allergy Verified 05/18/22 22:13 Physical Exam Vitals: Vital Signs Temp Pulse Pulse Resp BP BP Pulse Ox 05/19/22 07:30 97.9 F 97 19 103/68 95 05/19/22 06:46 81 18 111/67 92 L 05/19/22 02:28 76 18 111/74 94 L 05/19/22 00:14 85 18 112/71 92 L 05/18/22 23:43 82 18 113/73 96 05/18/22 20:47 98 F 05/18/22 20:40 85 20 107/85 100 Intake and Output 05/18/22 05/19/22 05/19/22 22:59 06:59 14:59 Output Total 1200 400 Balance -1200 -400 Output: Urine 1200 400 Other: Voiding Method Indwelling Catheter # Bowel Movements 1 Weight 61.689 kg 61.689 kg Results 05/19/22 02:54 05/19/22 02:54 Cardiac Enzymes 05/18/22 05/18/22 05/18/22 Range/Units 21:01 21:01 23:45 AST 42 H (14-36) U/L Troponin I 0.021 0.020 (0.000-0.034) ng/mL 05/19/22 05/19/22 Range/Units 02:54 02:54 AST 22 (14-36) U/L Troponin I 0.024 (0.000-0.034) ng/mL Coagulation 05/18/22 Range/Units 21:01 PT 13.9 H (9.0-12.0) sec APTT 24.8 (22.0-30.0) sec CBC 05/18/22 05/19/22 Range/Units 21:01 02:54 WBC 6.9 6.6 (3.8-10.6) k/uL RBC 3.16 L 3.09 L (3.80-5.40) m/uL Hgb 9.5 L 9.2 L (11.4-16.0) gm/dL Hct 30.7 L 30.0 L (34.0-46.0) % Plt Count 205 191 (150-450) k/uL Comprehensive Metabolic Panel 05/18/22 05/19/22 Range/Units 21:01 02:54 Sodium 138 139 (137-145) mmol/L Potassium 4.1 3.8 (3.5-5.1) mmol/L Chloride 102 103 (98-107) mmol/L Carbon Dioxide 19 L 21 L (22-30) mmol/L BUN 57 H 56 H (7-17) mg/dL Creatinine 2.06 H 2.10 H (0.52-1.04) mg/dL Glucose 148 H 134 H (74-99) mg/dL Calcium 9.0 9.4 (8.4-10.2) mg/dL AST 42 H 22 (14-36) U/L ALT 16 16 (4-34) U/L Alkaline Phosphatase 96 97 (38-126) U/L Total Protein 6.2 L 6.0 L (6.3-8.2) g/dL Albumin 3.8 3.7 (3.5-5.0) g/dL Current Medications Generic Name Dose Route Start Last Admin Trade Name Freq PRN Reason Stop Dose Admin Acetaminophen 650 mg 05/18/22 23:33 Acetaminophen Tab 325 Mg Tab PO Q6HR PRN Mild Pain or Fever > 100.5 Albuterol Sulfate 2.5 mg 05/19/22 00:45 Albuterol Nebulized 2.5 Mg/3 Ml INHALATION RT-Q2H PRN Shortness Of Breath Or Wheezing Albuterol/Ipratropium 3 ml 05/19/22 00:45 Ipratropium-Albuterol 3 Ml Neb INHALATION RT-QID PRN Shortness Of Breath Or Wheezing Atorvastatin Calcium 40 mg 05/19/22 09:00 05/19/22 08:06 Atorvastatin 40 Mg Tab PO 40 mg DAILY JOLENE Administration Budesonide/Formoterol Fumarate 2 puff 05/19/22 08:00 05/19/22 08:30 Symbicort 80-4.5 Mcg Inhaler INHALATION 2 puff RT-BID JOLENE Administration Furosemide 40 mg 05/18/22 23:30 05/19/22 01:18 Furosemide 10 Mg/Ml 4 Ml Vial IV Not Given Q12H JOLENE Sodium Chloride 1,000 mls @ 75 mls/hr 05/18/22 23:15 05/18/22 23:40 Saline 0.9% IV 75 mls/hr .[id number] JOLENE Administration Metoprolol Tartrate 12.5 mg 05/19/22 12:00 Metoprolol Tartrate 12.5 Mg Tab PO DAILY@1200 JOLENE Midodrine 10 mg 05/19/22 09:00 05/19/22 08:06 Midodrine 5 Mg Tab PO 10 mg TID@0900,1300,1730 JOLENE Administration Naloxone HCl 0.2 mg 05/18/22 23:33 Naloxone 0.4 Mg/Ml 1 Ml Vial IV Q2M PRN Opioid Reversal Ondansetron HCl 4 mg 05/18/22 23:33 Ondansetron 4 Mg/2 Ml Vial IVP Q8HR PRN Nausea And Vomiting Pantoprazole Sodium 40 mg 05/19/22 09:00 05/19/22 08:06 Pantoprazole 40 Mg Tablet PO 40 mg DAILY JOLENE Administration Potassium Chloride 10 meq 05/19/22 09:00 05/19/22 08:06 Potassium Chloride Er 10 Meq Tab.Er.Prt PO 10 meq BID JOLENE Administration Sildenafil Citrate 20 mg 05/19/22 09:00 05/19/22 10:03 Sildenafil 20 Mg Tab PO 20 mg TID JOLENE Administration Intake and Output 05/18/22 05/19/22 05/19/22 22:59 06:59 14:59 Output Total 1200 400 Balance -1200 -400 Output: Urine 1200 400 Other: Voiding Method Indwelling Catheter # Bowel Movements 1 Weight 61.689 kg 61.689 kg Patient Weight 05/20/22 06:59 Weight 61.689 kg 05/19/22 02:54 05/19/22 02:54
[2022-05-19] MEDS: SODIUM CHLORIDE 0.9% 1,000 ML IV SCH (12:19)
[2022-05-19] MEDS: METOPROLOL TARTRATE 12.5 MG TAB PO SCH (12:19)
[2022-05-19] MEDS: BUMETANIDE 0.25 MG/ML 10 ML VIAL IV SCH (16:04)
--- NOTE | 2022-05-19 23:23 | P.CONS ---
History of Present Illness - Reason for Consult Consult date: 05/19/22 Positive blood culture Requesting physician: Riki Toth - Chief Complaint Increasing shortness of breath x few days - History of Present Illness Patient is a 77-year-old female with a past medical history significant for coronary artery disease pulmonary hypertension atrial fibrillation PFO dyslipidemia chronic respiratory failure on 6 L nasal cannula oxygen patient presented to hospital with worsening shortness of breath in this patient symptom has been going on for few days before presentation to the hospital patient denies having any chest pain did have minimal cough but no sputum production patient denies having any abdominal pain or any diarrhea p atient mention she did have a chronic indwelling Rider catheter but not very good historian as far as urinary symptoms is concerned patient on presentation to the hospital was afebrile and no fever have been recorded subsequently patient did have a normal white count BUN/creatinine has been mildly elevated patient did have a positive UA COVID testing was negative patient did have a positive blood cultures coming back positive with gram-positive bacilli that has prompted this infectious disease consultation patient currently do not have any skin or soft tissue source and no joint swelling no abdominal pain or diarrhea Review of Systems Positive point has been mentioned in the HPI rest of the systems are negative Past Medical History Past Medical History: Atrial Fibrillation, Blood Disorder, GERD/Reflux, Hyperlipidemia, Hypertension, Osteoarthritis (OA) Additional Past Medical History / Comment(s): Mitral regurgitation, mild to moderate pulmonary HTN-per past medical hx/pt unaware, SOB with exertion, small hiatal hernia, current bilateral lower leg edema, occasional low back pain, arthritis bilateral hands. LOW HEMOGLOBIN- BLOOD TRANFUSIONS. 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 Past Anesthesia/Blood Transfusion Reactions: No Reported Reaction Additional Past Anesthesia/Blood Transfusion Reaction / Comm: no hx blood transfusion Past Psychological History: No Psychological Hx Reported Additional Psychological History / Comment(s): Pt resides with her family. Pt states she doesn't get up often. Smoking Status: Former smoker Past Alcohol Use History: None Reported Additional Past Alcohol Use History / Comment(s): Pt started smoking in 1959 and quit in 1977. She was a 2ppd smoker. Past Drug Use History: None Reported - Past Family History Mother Family Medical History: Cancer Additional Family Medical History / Comment(s): bowel Father Family Medical History: COPD Additional Family Medical History / Comment(s): emphysema Brother(s) Family Medical History: Cancer Additional Family Medical History / Comment(s): Bowel cancer. Medications and Allergies Home Medications Medication Instructions Recorded Confirmed Type Acetaminophen [Tylenol] 325 mg PO TID PRN 06/26/21 05/18/22 History Fluticasone Propion/Salmeterol 1 puff INHALATION RT-BID 06/26/21 05/18/22 History [Fluticasone-Salmeterol 250-50] Ipratropium-Albuterol Nebulize 3 ml INHALATION RT-BID PRN 06/26/21 05/18/22 History [Duoneb 0.5 mg-3 mg/3 ml Soln] Albuterol Sulfate [Ventolin HFA] 1 puff INHALATION RT-Q4H PRN 02/01/22 05/18/22 History Atorvastatin [Lipitor] 40 mg PO DAILY 02/01/22 05/18/22 History Potassium Chloride ER [K-Dur 10] 10 meq PO BID 02/01/22 05/18/22 History Apixaban [Eliquis] 2.5 mg PO BID 30 Days #60 tab 02/06/22 05/18/22 Rx Pantoprazole [Protonix] 40 mg PO DAILY 30 Days #30 tab 02/06/22 05/18/22 Rx Wheat Dextrin [Benefiber] 1 packet PO DAILY 05/03/22 05/18/22 History Midodrine [ProAmatine] 10 mg PO TID #180 tablet 05/12/22 05/18/22 Rx Sildenafil [Revatio] 20 mg PO TID #90 tab 05/12/22 05/18/22 Rx Metoprolol Succinate [Metoprolol 12.5 mg PO DAILY@1200 05/18/22 05/18/22 History Succinate ER] Bumetanide [BUMEX] 2 mg PO BID@0900,1600 #60 tab 10/17/22 Rx polyethylene glycoL 3350 [Miralax] 17 gm PO DAILY packet 05/24/22 Rx Allergies Allergy/AdvReac Type Severity Reaction Status Date / Time No Known Allergies Allergy Verified 05/18/22 22:13 Physical Exam Vitals: Vital Signs Temp Pulse Pulse Resp BP BP BP 05/19/22 16:00 05/19/22 14:45 97.7 F 73 18 91/57 05/19/22 07:30 97.9 F 97 19 103/68 05/19/22 06:46 81 18 111/67 05/19/22 02:28 76 18 111/74 05/19/22 00:14 85 18 112/71 05/18/22 23:43 82 18 113/73 05/18/22 20:47 98 F 05/18/22 20:40 85 20 107/85 Pulse Ox 05/19/22 16:00 94 L 05/19/22 14:45 94 L 05/19/22 07:30 95 05/19/22 06:46 92 L 05/19/22 02:28 94 L 05/19/22 00:14 92 L 05/18/22 23:43 96 05/18/22 20:47 05/18/22 20:40 100 Intake and Output 05/19/22 05/19/22 05/19/22 06:59 14:59 22:59 Intake Total 118 Output Total 1200 400 Balance -1200 -282 Intake: Oral 118 Output: Urine 1200 400 Other: Voiding Method Indwelling Catheter # Bowel Movements 1 Weight 61.689 kg GENERAL DESCRIPTION: Elderly female lying in bed, no distress. No tachypnea or accessory muscle of respiration use. HEENT: Shows Pallor , no scleral icterus. Oral mucous membrane is dry. No pharyngeal erythema or thrush NECK: Trachea central, no thyromegaly. LUNGS: Unlabored breathing. Coarse breath sounds bilaterally. HEART: S1, S2, regular rate and rhythm. No loud murmur ABDOMEN: Soft, no tenderness , guarding or rigidity, no organomegaly EXTREMITIES: No edema of feet. SKIN: No rash, no masses palpable. NEUROLOGICAL: The patient is awake, alert, oriented x3, mood and affect normal. Results CBC & Chem 7: 05/24/22 05:59 05/24/22 05:59 Labs: Abnormal Lab Results - Last 24 Hours (Table) 05/18/22 05/18/22 05/18/22 Range/Units 21:01 21:01 21:01 RBC 3.16 L (3.80-5.40) m/uL Hgb 9.5 L (11.4-16.0) gm/dL Hct 30.7 L (34.0-46.0) % MCHC 30.8 L (31.0-37.0) g/dL RDW 24.7 H (11.5-15.5) % PT 13.9 H (9.0-12.0) sec INR 1.3 H (<1.2) Carbon Dioxide (22-30) mmol/L BUN (7-17) mg/dL Creatinine (0.52-1.04) mg/dL Glucose (74-99) mg/dL Plasma Lactic Acid Bony (0.7-2.0) mmol/L Total Bilirubin (0.2-1.3) mg/dL AST (14-36) U/L Total Protein (6.3-8.2) g/dL Urine Protein 1+ H (Negative) Urine Blood Large H (Negative) Ur Leukocyte Esterase Small H (Negative) Urine RBC 95 H (0-5) /hpf Urine WBC 7 H (0-5) /hpf Urine Bacteria Many H (None) /hpf Hyaline Casts 4 H (0-2) /lpf Urine Mucus Rare H (None) /hpf Urine Trichomonas Rare H (None) /hpf 05/18/22 05/18/22 05/19/22 Range/Units 21:01 21:01 02:54 RBC 3.09 L (3.80-5.40) m/uL Hgb 9.2 L (11.4-16.0) gm/dL Hct 30.0 L (34.0-46.0) % MCHC 30.6 L (31.0-37.0) g/dL RDW 25.0 H (11.5-15.5) % PT (9.0-12.0) sec INR (<1.2) Carbon Dioxide 19 L (22-30) mmol/L BUN 57 H (7-17) mg/dL Creatinine 2.06 H (0.52-1.04) mg/dL Glucose 148 H (74-99) mg/dL Plasma Lactic Acid Bony 2.3 H* (0.7-2.0) mmol/L Total Bilirubin 1.9 H (0.2-1.3) mg/dL AST 42 H (14-36) U/L Total Protein 6.2 L (6.3-8.2) g/dL Urine Protein (Negative) Urine Blood (Negative) Ur Leukocyte Esterase (Negative) Urine RBC (0-5) /hpf Urine WBC (0-5) /hpf Urine Bacteria (None) /hpf Hyaline Casts (0-2) /lpf Urine Mucus (None) /hpf Urine Trichomonas (None) /hpf 05/19/22 05/19/22 Range/Units 02:54 04:07 RBC (3.80-5.40) m/uL Hgb (11.4-16.0) gm/dL Hct (34.0-46.0) % MCHC (31.0-37.0) g/dL RDW (11.5-15.5) % PT (9.0-12.0) sec INR (<1.2) Carbon Dioxide 21 L (22-30) mmol/L BUN 56 H (7-17) mg/dL Creatinine 2.10 H (0.52-1.04) mg/dL Glucose 134 H (74-99) mg/dL Plasma Lactic Acid Bony (0.7-2.0) mmol/L Total Bilirubin 1.6 H (0.2-1.3) mg/dL AST (14-36) U/L Total Protein 6.0 L (6.3-8.2) g/dL Urine Protein (Negative) Urine Blood Small H (Negative) Ur Leukocyte Esterase Small H (Negative) Urine RBC 9 H (0-5) /hpf Urine WBC 7 H (0-5) /hpf Urine Bacteria (None) /hpf Hyaline Casts (0-2) /lpf Urine Mucus (None) /hpf Urine Trichomonas (None) /hpf Microbiology - Last 24 Hours (Table) 05/18/22 23:39 Blood Culture Gram Stain - Preliminary Blood 05/18/22 23:39 Blood Culture - Final Blood Assessment and Plan (1) Positive blood culture Status: Acute Code(s): R78.81 - BACTEREMIA SNOMED Code(s): 529611201 Plan: 1patient with a positive blood culture with gram-positive bacilli more likely skin contamination as the patient has no clinical disease to go along with it patient currently with no fever or elevated white count. 2positive UA possibly related to the Rider catheter which is chronic for this patient 3-blood cultures will be repeated and we will also check inflammatory markers 4no need for vancomycin We will follow on clinical condition and cultures to further adjust medication if needed Thank you for this consultation will follow this patient along with you Time with Patient: Greater than 30
[2022-05-20] MEDS: BUMETANIDE 0.25 MG/ML 10 ML VIAL IV SCH ×2 (04:54→17:06)
[2022-05-20] MEDS: SODIUM CHLORIDE 0.9% 1,000 ML IV SCH (05:11)
[2022-05-20] MEDS: SYMBICORT 80-4.5 MCG INHALER INHALATION SCH ×2 (08:06→20:05)
[2022-05-20] MEDS: MIDODRINE 5 MG TAB PO SCH ×3 (08:11→17:37)
[2022-05-20] MEDS: POTASSIUM CHLORIDE ER 10 MEQ TAB.ER.PRT PO SCH ×2 (08:11→20:14)
[2022-05-20] MEDS: SILDENAFIL 20 MG TAB PO SCH ×3 (08:11→20:14)
[2022-05-20] MEDS: PANTOPRAZOLE 40 MG TABLET PO SCH (08:12)
[2022-05-20] MEDS: ATORVASTATIN 40 MG TAB PO SCH (08:12)
--- NOTE | 2022-05-20 09:32 | P.PN ---
Subjective Progress Note Date: 05/20/22 HISTORY OF PRESENT ILLNESS: The patient is a 77-year-old female with a known history of mild nonobstructive coronary artery disease, atrial fibrillation on eliquis, severe pulmonary hypertension, severe mitral regurgitation, severe tricuspid regurgitation, mild nonobstructive coronary artery disease, PFO, and dyslipidemia, hypertension, history of pulmonary embolism, chronic respiratory failure on 6 L of oxygen at home. She follows we Dr. Goldman. Patient had been having symptoms of worsening shortness of breath, lower extremity edema, symptoms of orthopnea and therefore had a lengthy hospitalization 2 weeks ago with diuresis as well as the addition of Revatio for her pulmonary hypertension. Repeat echo 05/05 which showed left ventricular ejection fraction 55% with severely dilated right ventricle and septal flattening with somewhat improvement and RVSP to 75 however may be related to worsening right ventricular failure. Mitral regurgitation only appeared moderate. She was also noted to have severe tricuspid regurgitation. She was diuresed and felt somewhat better and discharged home. Last night she started feeling more short of breath and home nurse came found the Conner catheter had been leaking and additionally was noted to be somewhat hypotensive. Patient states she was feeling somewhat short of breath and more lightheaded and therefore came to emergency department. She does feel she has put on a little bit more fluid in the last 2 days. She believes the medication was changed at home 2-3 days ago however unsure what. Hemoglobin 9.5, white blood cell count 6.9, platelets 205, carbon dioxide 19, creatinine 2.06, lactic acid 2.3, total bilirubin 1.9, AST 42, ALT 16, troponin 0.023, proBNP 6970. Chest x-ray showed cardiomegaly with coarse lung markings may be consistent with pulmonary fibrosis. DIAGNOSTICS * Echocardiogram 06/2021 in the office patient was in normal EF, severe tricuspid regurgitation, severe pulmonary hypertension, RVSP 75 mmHg * Cardiac catheterization History: * 11/2018 revealed minimal nonobstructive coronary artery disease, cardiac output 3.4 L, pulmonary artery systolic pressure 48 with a diastolic of 18, mean of 28 mmHg. Right ventricle systolic pressure 15 with end-diastolic of 5. 2 to 3+ mitral regurgitation 05/20/2022 Patient examined this morning at the bedside. Patient denies chest pain or pressure. She states her shortness of breath is improving. She remains on IV Bumex. She denies any further episodes of dizziness or lightheadness. Vital signs are stable. Telemetry reveals atrial fibrillation with controlled ventricular rate. PHYSICAL EXAM: VITAL SIGNS: Reviewed. GENERAL: Well-developed in no acute distress. NECK: Supple. No JVD or thyromegaly LUNGS: Respirations even and unlabored. Lungs diminished with crackles bilaterally, improving. HEART: Irregular rate and rhythm. S1 and S2 heard. + murmur. EXTREMITIES: Normal range of motion. No clubbing or cyanosis. Peripheral pulses intact. 1+ bilateral lower extremity edema ASSESSMENT: Lightheaded episode with reported hypotension. 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 Acute on chronic heart failure with preserved ejection fraction Severe pulmonary hypertension with previous echo 01/2022 with RVSP 123, improved to 75 05/05 however decrease may be related to RV failure Long standing persistent atrial fibrillation on Eliquis History of hypertension Mild nonobstructive coronary artery disease by cardiac catheterization in 2019 Dyslipidemia PFO History of pulmonary embolism CKD Positive blood cultures, possible contaminant Urinary tract infection History of urinary retention with chronic conner use PLAN: Continue current cardiac medications Resume Eliquis Continue with IV bumex for another 24 hours Monitor kidney function Daily weights. Accurate I&O Recommend discontinuing conner catheter and attempting voiding trial. Will defer to primary medicine Further recommendations pending patient course Nurse practitioner note has been reviewed by physician. Signing provider agrees with the documented findings, assessment, and plan of care. Objective - Vital Signs Vital signs: Vital Signs Temp 97.9 F 05/20/22 07:00 Pulse 95 05/20/22 07:00 Resp 18 05/20/22 07:00 BP 110/73 05/20/22 07:00 Pulse Ox 93 L 05/20/22 07:00 FiO2 Intake & Output 05/19/22 05/20/22 05/20/22 18:59 06:59 18:59 Intake Total 473 Output Total 400 1800 Balance 73 -1800 Weight 61.689 kg Intake: Oral 473 Output: Urine 400 1800 Other: Voiding Method Indwelling Catheter Indwelling Catheter # Voids 0 # Bowel Movements 1 - Labs CBC & Chem 7: 05/19/22 02:54 05/19/22 02:54 Labs: Microbiology - Last 24 Hours (Table) 05/18/22 23:24 Blood Culture - Preliminary Blood No Growth after 24 hours 05/18/22 23:39 Blood Culture Gram Stain - Preliminary Blood 05/18/22 23:39 Blood Culture - Final Blood
[2022-05-20] MEDS: APIXABAN 2.5 MG TABLET PO SCH ×2 (10:28→20:14)
[2022-05-20] MEDS: ACETAMINOPHEN TAB 325 MG TAB PO PRN ×2 (10:36→20:14)
[2022-05-20 11:03] LABS: HCT 31.1 % (37.2-46.3); HGB 9.4 g/dL (12.0-15.0); MCH 29.8 pg (27.0-32.0); MCHC 30.2 g/dL (32.0-37.0); MCV 98.7 fL (80.0-97.0); Mean Platelet Volume 11.1 fL (9.5-12.2); NRBC Per 100 WBC 0 /100 WBCS (0.0-0.0); Platelet Count 233 X 10*3/uL (140-440); RBC 3.15 X 10*6/uL (4.10-5.20); RDW 27.8 % (11.5-14.5); WBC 6.92 X 10*3/uL (4.50-10.00)
[2022-05-20 11:12] VITALS: BMI 20.7
[2022-05-20 11:13] LABS: African American GFR (CKD) 26.1 (60.0-200.0); BUN/Creat Ratio 26.68 Ratio (12.00-20.00); Blood Urea Nitrogen 54.7 mg/dL (9.0-27.0); C Reactive Protein <0.30 mg/dL (0.00-0.80); Calcium 9.4 mg/dL (8.7-10.3); Carbon Dioxide 23.7 mmol/L (20.0-27.5); Chloride 104 mmol/L (96-109); Glucose 122 mg/dL (70-110); Non-African American GFR(CKD) 22.5 (60.0-200.0); Potassium 4.2 mmol/L (3.5-5.5); Sodium 144 mmol/L (135-145)
[2022-05-20 11:48] LABS: Basophils # (A) 0.12 X 10*3/uL (0.00-0.10); Basophils % (A) 1.7 %; Eosinophils % (A) 4.3 %; Immature Grans, Automated 0.3 %; Lymphocytes # (A) 1.13 X 10*3/uL (0.90-5.00); Lymphocytes % (A) 16.3 %; Monocytes # (A) 0.54 X 10*3/uL (0.20-1.00); Monocytes % (A) 7.8 %; Neutrophils # (A) 4.81 X 10*3/uL (1.80-7.70); Neutrophils % (A) 69.6 %
[2022-05-20] MEDS: METOPROLOL TARTRATE 12.5 MG TAB PO SCH (12:31)
[2022-05-20] MEDS ORDERED: Magnesium Replacement Protocol 1 EACH MISC MISCELLANE PRN (16:57)
--- NOTE | 2022-05-20 17:04 | P.HPIM ---
History of Present Illness H&P Date: 05/19/22 This is a 77-year-old female recently discharged from the hospital on 05/12/2022 with acute on chronic CHF ,with past medical history of peptic ulcer disease, diverticulosis ,chronic persistent atrial fibrillation on Eliquis, hypertension, hyperlipidemia, severe pulmonary hypertension, severe tricuspid regurgitation, gastroesophageal reflux disease, chronic respiratory failure, wears 6 L at home, former nicotine dependenceand multiple other medical issues, directed to the ER per the home care nurse. Apparently patient's blood pressure and heart rate regular low, patient does not recall the actual numbers but states she was asymptomatic, in a patient discharged on Midodrin, Revatio. Denies l ightheadedness dizziness or focal deficits. Denies syncope. Denies chest pain, palpitations. Reported mild increase in shortness of breath and increasing edema but this morning patient's edema improved from last week and without shortness of breath. Patient is lying flat in bed with no orthopnea, without shortness of breath. Reports she feels better. Denies nausea, vomiting or abdominal pain. Denies diarrhea. Recent echo Doppler reported EF 55%, severe pulmonary hypertension, RVSP 75 mmHg , dilated RV, moderate mitral regurgitation, severe tricuspid regurgitation ,small circumferential pericardial effusion . Hemoglobin 9.2, platelets 191 .On prior visit patient had declined cardiac catheterization given her risk of potentially require renal replacement therapy. Renal function stable. Positive blood culture gram-positive bacilli, suspecting skin contaminant in a patient afebrile with normal WBC. Received IV antibiotics of ceftriaxone in the ER. Review of Systems ROS Statement: Those systems with pertinent positive or pertinent negative responses have been documented in the HPI. ROS Other: All systems not noted in ROS Statement are negative. Past Medical History Past Medical History: Atrial Fibrillation, Blood Disorder, GERD/Reflux, Hyperlipidemia, Hypertension, Osteoarthritis (OA) Additional Past Medical History / Comment(s): Mitral regurgitation, mild to moderate pulmonary HTN-per past medical hx/pt unaware, SOB with exertion, small hiatal hernia, current bilateral lower leg edema, occasional low back pain, arthritis bilateral hands. LOW HEMOGLOBIN- BLOOD TRANFUSIONS. 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 Past Anesthesia/Blood Transfusion Reactions: No Reported Reaction Additional Past Anesthesia/Blood Transfusion Reaction / Comment(s): no hx blood transfusion Past Psychological History: No Psychological Hx Reported Additional Psychological History / Comment(s): Pt resides with her family. Pt states she doesn't get up often. Smoking Status: Former smoker Past Alcohol Use History: None Reported Additional Past Alcohol Use History / Comment(s): Pt started smoking in 7 and quit in 1977. She was a 2ppd smoker. Past Drug Use History: None Reported - Past Family History Mother Family Medical History: Cancer Additional Family Medical History / Comment(s): bowel Father Family Medical History: COPD Additional Family Medical History / Comment(s): emphysema Brother(s) Family Medical History: Cancer Additional Family Medical History / Comment(s): Bowel cancer. Medications and Allergies Home Medications Medication Instructions Recorded Confirmed Type Acetaminophen [Tylenol] 325 mg PO TID PRN 06/26/21 05/18/22 History Fluticasone Propion/Salmeterol 1 puff INHALATION RT-BID 06/26/21 05/18/22 History [Fluticasone-Salmeterol 250-50] Ipratropium-Albuterol Nebulize 3 ml INHALATION RT-BID PRN 06/26/21 05/18/22 History [Duoneb 0.5 mg-3 mg/3 ml Soln] Albuterol Sulfate [Ventolin HFA] 1 puff INHALATION RT-Q4H PRN 02/01/22 05/18/22 History Atorvastatin [Lipitor] 40 mg PO DAILY 02/01/22 05/18/22 History Furosemide [Lasix] 40 mg PO BID 02/01/22 05/18/22 History Potassium Chloride ER [K-Dur 10] 10 meq PO BID 02/01/22 05/18/22 History Spironolactone 25 mg PO DAILY 02/01/22 05/18/22 History Apixaban [Eliquis] 2.5 mg PO BID 30 Days #60 tab 02/06/22 05/18/22 Rx Pantoprazole [Protonix] 40 mg PO DAILY 30 Days #30 tab 02/06/22 05/18/22 Rx Wheat Dextrin [Benefiber] 1 packet PO DAILY 05/03/22 05/18/22 History metOLazone [Zaroxolyn] 5 mg PO Q48H PRN 05/03/22 05/18/22 History Midodrine [ProAmatine] 10 mg PO TID #180 tablet 05/12/22 05/18/22 Rx Sildenafil [Revatio] 20 mg PO TID #90 tab 05/12/22 05/18/22 Rx Metoprolol Succinate [Metoprolol 12.5 mg PO DAILY@1200 05/18/22 05/18/22 History Succinate ER] Allergies Allergy/AdvReac Type Severity Reaction Status Date / Time No Known Allergies Allergy Verified 05/18/22 22:13 Physical Exam Vitals: Vital Signs Temp Pulse Pulse Resp BP BP Pulse Ox 05/19/22 07:30 97.9 F 97 19 103/68 95 05/19/22 06:46 81 18 111/67 92 L 05/19/22 02:28 76 18 111/74 94 L 05/19/22 00:14 85 18 112/71 92 L 05/18/22 23:43 82 18 113/73 96 05/18/22 20:47 98 F 05/18/22 20:40 85 20 107/85 100 Intake and Output 05/18/22 05/19/22 05/19/22 22:59 06:59 14:59 Output Total 1200 Balance -1200 Output: Urine 1200 Other: Voiding Method Indwelling Catheter # Bowel Movements 1 Weight 61.689 kg 61.689 kg - Exam PHYSICAL EXAM: VITAL SIGNS: As above GENERAL: Alert and oriented 3, Sitting up in bed, no acute distress, conversing without shortness of breath HEENT: Conjunctivae normal. eyes normal. NECK: Supple, no JVD. CARDIOVASCULAR: S1, S2, irregular. Systolic murmur. RESPIRATION: Unlabored, Breath sounds CTA,diminished in the bases. ABDOMEN: Soft, nondistended, nontender . No guarding. no masses palpable.Bowel sounds heard. LEGS: decreased edema, no clubbing, no cyanosis, +DP NERVOUS SYSTEM: Cranial N 2-12 grossly normal. No focal deficits. Strength and sensation grossly intact. Skin: Warm and dry, no rash Results CBC & Chem 7: 05/20/22 06:19 05/20/22 06:19 Labs: Abnormal Lab Results - Last 24 Hours (Table) 05/18/22 05/18/22 05/18/22 Range/Units 21:01 21:01 21:01 RBC 3.16 L (3.80-5.40) m/uL Hgb 9.5 L (11.4-16.0) gm/dL Hct 30.7 L (34.0-46.0) % MCHC 30.8 L (31.0-37.0) g/dL RDW 24.7 H (11.5-15.5) % PT 13.9 H (9.0-12.0) sec INR 1.3 H (<1.2) Carbon Dioxide (22-30) mmol/L BUN (7-17) mg/dL Creatinine (0.52-1.04) mg/dL Glucose (74-99) mg/dL Plasma Lactic Acid Bony (0.7-2.0) mmol/L Total Bilirubin (0.2-1.3) mg/dL AST (14-36) U/L Total Protein (6.3-8.2) g/dL Urine Protein 1+ H (Negative) Urine Blood Large H (Negative) Ur Leukocyte Esterase Small H (Negative) Urine RBC 95 H (0-5) /hpf Urine WBC 7 H (0-5) /hpf Urine Bacteria Many H (None) /hpf Hyaline Casts 4 H (0-2) /lpf Urine Mucus Rare H (None) /hpf Urine Trichomonas Rare H (None) /hpf 05/18/22 05/18/22 05/19/22 Range/Units 21:01 21:01 02:54 RBC 3.09 L (3.80-5.40) m/uL Hgb 9.2 L (11.4-16.0) gm/dL Hct 30.0 L (34.0-46.0) % MCHC 30.6 L (31.0-37.0) g/dL RDW 25.0 H (11.5-15.5) % PT (9.0-12.0) sec INR (<1.2) Carbon Dioxide 19 L (22-30) mmol/L BUN 57 H (7-17) mg/dL Creatinine 2.06 H (0.52-1.04) mg/dL Glucose 148 H (74-99) mg/dL Plasma Lactic Acid Bony 2.3 H* (0.7-2.0) mmol/L Total Bilirubin 1.9 H (0.2-1.3) mg/dL AST 42 H (14-36) U/L Total Protein 6.2 L (6.3-8.2) g/dL Urine Protein (Negative) Urine Blood (Negative) Ur Leukocyte Esterase (Negative) Urine RBC (0-5) /hpf Urine WBC (0-5) /hpf Urine Bacteria (None) /hpf Hyaline Casts (0-2) /lpf Urine Mucus (None) /hpf Urine Trichomonas (None) /hpf 05/19/22 05/19/22 Range/Units 02:54 04:07 RBC (3.80-5.40) m/uL Hgb (11.4-16.0) gm/dL Hct (34.0-46.0) % MCHC (31.0-37.0) g/dL RDW (11.5-15.5) % PT (9.0-12.0) sec INR (<1.2) Carbon Dioxide 21 L (22-30) mmol/L BUN 56 H (7-17) mg/dL Creatinine 2.10 H (0.52-1.04) mg/dL Glucose 134 H (74-99) mg/dL Plasma Lactic Acid Bony (0.7-2.0) mmol/L Total Bilirubin 1.6 H (0.2-1.3) mg/dL AST (14-36) U/L Total Protein 6.0 L (6.3-8.2) g/dL Urine Protein (Negative) Urine Blood Small H (Negative) Ur Leukocyte Esterase Small H (Negative) Urine RBC 9 H (0-5) /hpf Urine WBC 7 H (0-5) /hpf Urine Bacteria (None) /hpf Hyaline Casts (0-2) /lpf Urine Mucus (None) /hpf Urine Trichomonas (None) /hpf Thrombosis Risk Factor Assmnt - Choose All That Apply Any of the Below Risk Factors Present?: No Other Risk Factors: Yes Each Risk Factor Represents 3 Points: Age 75 years or older Other congenital or acquired thrombophilia - If yes, enter type in comment: No Thrombosis Risk Factor Assessment Total Risk Factor Score: 3 Thrombosis Risk Factor Assessment Level: Moderate Risk Assessment and Plan Assessment: Acute on chronic congestive heart failure, diastolic dysfunction, preserved EF Severe pulmonary hypertension, RVSP 76, etiology unclear Chronic hypoxic respiratory failure, wears 6 L nasal cannula O2 at home Chronic renal failure, stage III secondary to cardiorenal syndrome. Urinary retention status post Rider catheter History of Covid-19 pneumonia, 06/28 Chronic Pulmonary hypertension, severe Chronic persistent atrial fibrillation, anticoagulated on Eliquis, dose decreased. CAD Hypertension Severe tricuspid regurgitation Former nicotine dependence Plan: Continue on current medication regime ,monitoring and symptomatic treatment. Discontinue Rider with postvoid bladder scan as well as every 4 hours. Possibly adjust diuretics to bumex-defer to cardiology. Infectious disease consulted regarding positive blood cultures. Discharge planning in progress. The impression and plan of care has been dictated as directed. : I performed a history and examination of this patient, discussed the same with the dictator. I agree with the dictator's note ,documented as a scribe. Any additional findings or plans will be noted.
--- NOTE | 2022-05-20 17:16 | P.PN ---
Subjective Progress Note Date: 05/20/22 H&P Date: 05/19/22 This is a 77-year-old female recently discharged from the hospital on 05/12/2022 with acute on chronic CHF ,with past medical history of peptic ulcer disease, diverticulosis ,chronic persistent atrial fibrillation on Eliquis, hypertension, hyperlipidemia, severe pulmonary hypertension, severe tricuspid regurgitation, gastroesophageal reflux disease, chronic respiratory failure, wears 6 L at home, former nicotine dependenceand multiple other medical issues, directed to the ER per the home care nurse. Apparently patient's blood pressure and heart rate regular low, patient does not recall the actual numbers but states she was asymptomatic, in a patient discharged on Midodrin, Revatio. Denies lightheadedness dizziness or focal deficits. Denies syncope. Denies chest pain, palpitations. Reported mild increase in shortness of breath and increasing edema but this morning patient's edema improved from last week and without shortness of breath. Patient is lying flat in bed with no orthopnea, without shortness of breath. Reports she feels better. Denies nausea, vomiting or abdominal pain. Denies diarrhea. Recent echo Doppler reported EF 55%, cari re pulmonary hypertension, RVSP 75 mmHg , dilated RV, moderate mitral regurgitation, severe tricuspid regurgitation ,small circumferential pericardial effusion . Hemoglobin 9.2, platelets 191 .On prior visit patient had declined cardiac catheterization given her risk of potentially require renal replacement therapy. Renal function stable. Positive blood culture gram-positive bacilli, suspecting skin contaminant in a patient afebrile with normal WBC. Received IV antibiotics of ceftriaxone in the ER. 05/20/2022 feels worse today with increased shortness of breath. Denies dizziness. Telemetry reporting controlled atrial fibrillation. Maintained on IV antibiotics of ceftriaxone. Repeat blood cultures in progress, suspecting contamination. Afebrile, normal WBC. Objective - Vital Signs Vital signs: Vital Signs Temp 97.5 F L 05/20/22 14:00 Pulse 87 05/20/22 14:00 Resp 18 05/20/22 14:00 BP 100/65 05/20/22 14:00 Pulse Ox 95 05/20/22 14:00 FiO2 Intake & Output 05/19/22 05/20/22 05/20/22 18:59 06:59 18:59 Intake Total 473 118 Output Total 400 1800 250 Balance 73 -1800 -132 Weight 61.689 kg 61.9 kg Intake: Oral 473 118 Output: Urine 400 1800 250 Other: Voiding Method Indwelling Catheter Indwelling Catheter Indwelling Catheter # Voids 0 # Bowel Movements 1 1 - Exam - Exam PHYSICAL EXAM: VITAL SIGNS: As above GENERAL: Alert and oriented 3, Sitting up in bed, no acute distress HEENT: Conjunctivae normal. eyes normal. MMM. NECK: Supple, no JVD. CARDIOVASCULAR: S1, S2, irregular. Systolic murmur. RESPIRATION: Unlabored, Breath sounds CTA,diminished in the bases. ABDOMEN: Soft, nondistended, nontender . No guarding. no masses palpable.Bowel sounds heard. LEGS: decreased edema, no clubbing, no cyanosis, +DP NERVOUS SYSTEM: Cranial N 2-12 grossly normal. No focal deficits. Strength and sensation grossly intact. Skin: Warm and dry, no rash - Labs CBC & Chem 7: 05/20/22 06:19 05/20/22 06:19 Labs: Abnormal Lab Results - Last 24 Hours (Table) 05/20/22 05/20/22 05/20/22 Range/Units 06:19 06:19 06:19 RBC 3.15 L (4.10-5.20) X 10*6/uL Hgb 9.4 L (12.0-15.0) g/dL Hct 31.1 L (37.2-46.3) % MCV 98.7 H (80.0-97.0) fL MCHC 30.2 L (32.0-37.0) g/dL RDW 27.8 H (11.5-14.5) % Basophils # 0.12 H (0.00-0.10) X 10*3/uL BUN 54.7 H (9.0-27.0) mg/dL Creatinine 2.1 H (0.6-1.5) mg/dL Est GFR (CKD-EPI)AfAm 26.1 L (60.0-200.0) Est GFR (CKD-EPI)NonAf 22.5 L (60.0-200.0) BUN/Creatinine Ratio 26.68 H (12.00-20.00) Ratio Glucose 122 H (70-110) mg/dL Procalcitonin 0.16 H (0.02-0.09) ng/mL Microbiology - Last 24 Hours (Table) 05/18/22 23:39 Blood Culture Gram Stain - Final Blood Blood Culture - Final Bacillus species Not Anthracis 05/18/22 23:24 Blood Culture - Preliminary Blood No Growth after 24 hours 05/18/22 23:39 Blood Culture - Final Blood Assessment and Plan Assessment: Acute on chronic congestive heart failure, diastolic dysfunction, preserved EF Severe pulmonary hypertension, RVSP 76, etiology unclear Bacteremia, suspecting contamination, repeat blood cultures in progress Chronic hypoxic respiratory failure, wears 6 L nasal cannula O2 at home Chronic renal failure, stage III secondary to cardiorenal syndrome. Urinary retention status post Conner catheter History of Covid-19 pneumonia, 06/28 Chronic Pulmonary hypertension, severe Chronic persistent atrial fibrillation, anticoagulated on Eliquis, dose decreased. CAD Hypertension Severe tricuspid regurgitation Former nicotine dependence Plan: Continue on current medication regime ,monitoring and symptomatic treatment. Diuretics as per cardiology. Anticoagulated on eliquis.DC of conner cath. with post void residuals. Repeat blood cultures finalizing.Discharge planning in progress. The impression and plan of care has been dictated as directed. : I performed a history and examination of this patient, discussed the same with the dictator. I agree with the dictator's note ,documented as a scribe. Any additional findings or plans will be noted.
[2022-05-20] MEDS: TAMSULOSIN 0.4 MG CAP.ER.24H PO SCH (17:36)
[2022-05-21] MEDS: BUMETANIDE 0.25 MG/ML 10 ML VIAL IV SCH (05:27)
[2022-05-21] MEDS: SYMBICORT 80-4.5 MCG INHALER INHALATION SCH ×2 (07:59→19:44)
[2022-05-21 09:27] LABS: African American GFR (CKD) 25.3 (60.0-200.0); Anion Gap 16.2 mmol/L (10.00-18.00); BUN/Creat Ratio 26.33 Ratio (12.00-20.00); Blood Urea Nitrogen 55.3 mg/dL (9.0-27.0); Calcium 9.4 mg/dL (8.7-10.3); Carbon Dioxide 22.8 mmol/L (20.0-27.5); Non-African American GFR(CKD) 21.8 (60.0-200.0); Potassium 4.2 mmol/L (3.5-5.5)
[2022-05-21] MEDS: ATORVASTATIN 40 MG TAB PO SCH (09:47)
[2022-05-21] MEDS: APIXABAN 2.5 MG TABLET PO SCH ×2 (09:47→22:13)
[2022-05-21] MEDS: POTASSIUM CHLORIDE ER 10 MEQ TAB.ER.PRT PO SCH ×2 (09:47→22:14)
[2022-05-21] MEDS: PANTOPRAZOLE 40 MG TABLET PO SCH (09:47)
[2022-05-21] MEDS: MIDODRINE 5 MG TAB PO SCH ×3 (09:47→16:53)
[2022-05-21] MEDS: SILDENAFIL 20 MG TAB PO SCH ×3 (09:48→22:13)
--- NOTE | 2022-05-21 10:23 | P.PN ---
Subjective Progress Note Date: 05/21/22 HISTORY OF PRESENT ILLNESS: The patient is a 77-year-old female with a known history of mild nonobstructive coronary artery disease, atrial fibrillation on eliquis, severe pulmonary hypertension, severe mitral regurgitation, severe tricuspid regurgitation, mild nonobstructive coronary artery disease, PFO, and dyslipidemia, hypertension, history of pulmonary embolism, chronic respiratory failure on 6 L of oxygen at home. She follows we Dr. Goldman. Patient had been having symptoms of worsening shortness of breath, lower extremity edema, symptoms of orthopnea and therefore had a lengthy hospitalization 2 weeks ago with diuresis as well as the addition of Revatio for her pulmonary hypertension. Repeat echo 05/05 which showed left ventricular ejection fraction 55% with severely dilated right ventricle and septal flattening with somewhat improvement and RVSP to 75 however may be related to worsening right ventricular failure. Mitral regurgitation only appeared moderate. She was also noted to have severe tricuspid regurgitation. She was diuresed and felt somewhat better and discharged home. Last night she started feeling more short of breath and home nurse came found the Conner catheter had been leaking and additionally was noted to be somewhat hypotensive. Patient states she was feeling somewhat short of breath and more lightheaded and therefore came to emergency department. She does feel she has put on a little bit more fluid in the last 2 days. She believes the medication was changed at home 2-3 days ago however unsure what. Hemoglobin 9.5, white blood cell count 6.9, platelets 205, carbon dioxide 19, creatinine 2.06, lactic acid 2.3, total bilirubin 1.9, AST 42, ALT 16, troponin 0.023, proBNP 6970. Chest x-ray showed cardiomegaly with coarse lung markings may be consistent with pulmonary fibrosis. DIAGNOSTICS * Echocardiogram 06/2021 in the office patient was in normal EF, severe tricuspid regurgitation, severe pulmonary hypertension, RVSP 75 mmHg * Cardiac catheterization History: * 11/2018 revealed minimal nonobstructive coronary artery disease, cardiac output 3.4 L, pulmonary artery systolic pressure 48 with a diastolic of 18, mean of 28 mmHg. Right ventricle systolic pressure 15 with end-diastolic of 5. 2 to 3+ mitral regurgitation 05/20/2022 Patient examined this morning at the bedside. Patient denies chest pain or pressure. She states her shortness of breath is improving. She remains on IV Bumex. She denies any further episodes of dizziness or lightheadness. Vital signs are stable. Telemetry reveals atrial fibrillation with controlled ventricular rate. 05/21/2022 Patient examined this morning at the bedside. Patient denies chest pain or pressure. She denies shortness of breath. She reports some mild dizziness this morning. Blood pressures are stable with a systolic blood pressure in the 100s. Telemetry reveals atrial fibrillation with a heart rate around 110. PHYSICAL EXAM: VITAL SIGNS: Reviewed. GENERAL: Well-developed in no acute distress. NECK: Supple. No JVD or thyromegaly LUNGS: Respirations even and unlabored. Lungs diminished HEART: Irregular rate and rhythm. S1 and S2 heard. + murmur. EXTREMITIES: Normal range of motion. No clubbing or cyanosis. Peripheral pulses intact. Trace bilateral lower extremity edema ASSESSMENT: Lightheaded episode with reported hypotension. 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 Acute on chronic heart failure with preserved ejection fraction Severe pulmonary hypertension with previous echo 01/2022 with RVSP 123, improved to 75 05/05 however decrease may be related to RV failure Long standing persistent atrial fibrillation on Eliquis History of hypertension Mild nonobstructive coronary artery disease by cardiac catheterization in 2019 Dyslipidemia PFO History of pulmonary embolism CKD Positive blood cultures, possible contaminant Urinary tract infection History of urinary retention with chronic conner use PLAN: Continue current cardiac medications Discontinue IV Bumex. Begin oral bumex at discharge instead of lasix. Patient may be discharged home today from a cardiac standpoint and follow up outpatient with Dr. Goldman We will sign off. Please reconsult if needed. Nurse practitioner note has been reviewed by physician. Signing provider agrees with the documented findings, assessment, and plan of care. Objective - Vital Signs Vital signs: Vital Signs Temp 97.6 F 05/21/22 08:00 Pulse 114 H 05/21/22 08:00 Resp 18 05/21/22 08:00 BP 105/68 05/21/22 08:00 Pulse Ox 91 L 05/21/22 08:00 FiO2 Intake & Output 05/20/22 05/21/22 05/21/22 18:59 06:59 18:59 Intake Total 118 Output Total 250 700 228 Balance -132 -700 -228 Weight 61.9 kg 62 kg Intake: Oral 118 Output: Urine 250 700 Post Void Residual 228 Other: Voiding Method Indwelling Catheter Bedside Commode # Voids 1 2 # Bowel Movements 1 1 - Labs CBC & Chem 7: 05/20/22 06:19 05/21/22 05:38 Labs: Abnormal Lab Results - Last 24 Hours (Table) 05/20/22 05/20/22 05/20/22 Range/Units 06:19 06:19 06:19 RBC 3.15 L (4.10-5.20) X 10*6/uL Hgb 9.4 L (12.0-15.0) g/dL Hct 31.1 L (37.2-46.3) % MCV 98.7 H (80.0-97.0) fL MCHC 30.2 L (32.0-37.0) g/dL RDW 27.8 H (11.5-14.5) % Basophils # 0.12 H (0.00-0.10) X 10*3/uL BUN 54.7 H (9.0-27.0) mg/dL Creatinine 2.1 H (0.6-1.5) mg/dL Est GFR (CKD-EPI)AfAm 26.1 L (60.0-200.0) Est GFR (CKD-EPI)NonAf 22.5 L (60.0-200.0) BUN/Creatinine Ratio 26.68 H (12.00-20.00) Ratio Glucose 122 H (70-110) mg/dL Procalcitonin 0.16 H (0.02-0.09) ng/mL 05/21/22 Range/Units 05:38 RBC (4.10-5.20) X 10*6/uL Hgb (12.0-15.0) g/dL Hct (37.2-46.3) % MCV (80.0-97.0) fL MCHC (32.0-37.0) g/dL RDW (11.5-14.5) % Basophils # (0.00-0.10) X 10*3/uL BUN 55.3 H (9.0-27.0) mg/dL Creatinine 2.1 H (0.6-1.5) mg/dL Est GFR (CKD-EPI)AfAm 25.3 L (60.0-200.0) Est GFR (CKD-EPI)NonAf 21.8 L (60.0-200.0) BUN/Creatinine Ratio 26.33 H (12.00-20.00) Ratio Glucose 147 H (70-110) mg/dL Procalcitonin (0.02-0.09) ng/mL Microbiology - Last 24 Hours (Table) 05/20/22 06:19 Blood Culture - Preliminary Blood No Growth after 24 hours 05/18/22 23:24 Blood Culture Gram Stain - Preliminary Blood 05/18/22 23:24 Blood Culture - Final Blood 05/18/22 23:39 Blood Culture Gram Stain - Final Blood Blood Culture - Final Bacillus species Not Anthracis
--- NOTE | 2022-05-21 11:35 | CDI ---
Documentation Clarification Form Date: 05/21/2022 11:26:20 AM From: Helen Lam CCS, CCDS Admit Date: 05/19/2022 01:15:00 PM Patient Name: Selena Hinton Visit Number: [id number] Discharge Date: ATTENTION: The Clinical Documentation Specialists (CDI) and [facility] Coding Staff appreciate your assistance in clarifying documentation. Please respond to the clarification below the line at the bottom and electronically sign. The CDI & [facility] Coding staff will review the response and follow-up if needed. Please note: Queries are made part of the Legal Health Record. If you have any questions, please contact the author of this message via ITS. Dr. Riki Toth: Unspecified anemia is documented in the 05/19 Cardiology Consult. Additional specificity regarding the Type & Acuity of Anemia is requested. History/Risk Factors per the 05/19 H/P: Chronic Diastolic CHF, Severe Pulmonary Hypertension, Chronic Hypoxic Respiratory Failure on 6L nc O2 at home, CKD stage III secondary to Cardiorenal Syndrome, COVID 19 Pneumonia 06/2021, Chronic Persistent Atrial Fibrillation on Eliquis, CAD, Hypertension, Severe Tricuspid Regurgitation and former smoke. Clinical indicators: Presented to the ED on 1010 with SOB via EMS. Recently admitted with an Acute Exacerbation of CHF. Per Visiting Nurse, patient was noted to be hypotensive and increased SOB. Admit with Acute Exacerbation CHF, Hypotension, Lactic Acidosis and UTI. Hemoglobin 05/18: 9.5. 05/19: 9.2. 05/20: 9/4. Hematocrit 05/18: 30.7. 05/19: 30.0. 05/20: 31.1. Treatment 05/19: CHF clinical protocol: telemetry, daily weights, I&O, Rider catheter insertion, O2, IV Lasix 40 mg x1, IV Rocephin 1,000 mg x1, IV Na Chl 1,000 mls @ 75 mls/hr q13H, INH Ventolin, Duoneb & Symbicort. Home medications: Benefiber, Spironolactone, Revatio, K-Dur 10, Protonix, Proamatine, Metoprolol, Lasix, INH Fluticasone-Salmeterol, Lipitor, Eliquis, Zaroxolyn, INH Duoneb, INH Ventolin. Please clarify the Type & Acuity of Anemia: [ ] Chronic blood loss anemia [ ] Hemolytic anemia [ ] Drug induced anemia [ ] Anemia of chronic kidney disease [ ] Anemia of other chronic disease, please specify: [ ] Unable to determine [ ] Other, please specify (Template Last Revised: September 2020) Chronic blood loss anemia MTDD
--- NOTE | 2022-05-21 11:39 | P.PN ---
Subjective Progress Note Date: 05/20/22 Principal diagnosis: Positive blood culture and a question of UTI Patient is a 77-year-old female with a past medical history significant for coronary artery disease pulmonary hypertension atrial fibrillation PFO dyslipidemia chronic respiratory failure on 6 L nasal cannula oxygen patient presented to hospital with worsening shortness of breath, patient noticed to have a positive blood culture and also have a positive UA with a question of possible cath associated UTI versus colonization. On today's evaluation that is 05/20/2022, the patient denies having any fever or any chills the patient is breathing more comfortably. Denies having any chest pain cough is decreased intensity no nausea no vomiting no abdominal pain no diarrhea Objective - Vital Signs Vital signs: Vital Signs Temp 97.9 F 05/20/22 07:00 Pulse 95 05/20/22 07:00 Resp 18 05/20/22 07:00 BP 110/73 05/20/22 07:00 Pulse Ox 93 L 05/20/22 07:00 FiO2 Intake & Output 05/19/22 05/20/22 05/20/22 18:59 06:59 18:59 Intake Total 473 Output Total 400 1800 250 Balance 73 -1800 -250 Weight 61.689 kg 61.9 kg Intake: Oral 473 Output: Urine 400 1800 250 Other: Voiding Method Indwelling Catheter Indwelling Catheter Indwelling Catheter # Voids 0 # Bowel Movements 1 1 - Exam GENERAL DESCRIPTION: An elderly female lying in bed in no distress RESPIRATORY SYSTEM: Unlabored breathing , decreased breath sounds at bases HEART: S1 S2 regular rate and rhythm , ABDOMEN: Soft , no tenderness EXTREMITIES: No edema feet - Labs CBC & Chem 7: 05/20/22 06:19 05/21/22 05:38 Labs: Abnormal Lab Results - Last 24 Hours (Table) 05/20/22 05/20/22 05/20/22 Range/Units 06:19 06:19 06:19 RBC 3.15 L (4.10-5.20) X 10*6/uL Hgb 9.4 L (12.0-15.0) g/dL Hct 31.1 L (37.2-46.3) % MCV 98.7 H (80.0-97.0) fL MCHC 30.2 L (32.0-37.0) g/dL RDW 27.8 H (11.5-14.5) % Basophils # 0.12 H (0.00-0.10) X 10*3/uL BUN 54.7 H (9.0-27.0) mg/dL Creatinine 2.1 H (0.6-1.5) mg/dL Est GFR (CKD-EPI)AfAm 26.1 L (60.0-200.0) Est GFR (CKD-EPI)NonAf 22.5 L (60.0-200.0) BUN/Creatinine Ratio 26.68 H (12.00-20.00) Ratio Glucose 122 H (70-110) mg/dL Procalcitonin 0.16 H (0.02-0.09) ng/mL Microbiology - Last 24 Hours (Table) 05/18/22 23:24 Blood Culture - Preliminary Blood No Growth after 24 hours 05/18/22 23:39 Blood Culture Gram Stain - Preliminary Blood 05/18/22 23:39 Blood Culture - Final Blood Assessment and Plan (1) Positive blood culture Current Visit: Yes Status: Acute Code(s): R78.81 - BACTEREMIA SNOMED Code(s): 684439176 Plan: 1patient with a positive blood culture with gram-positive bacilli more likely skin contamination as the patient has no clinical disease to go along with it patient currently with no fever or elevated white count. 2positive UA possibly related to the Rider catheter which is chronic for this patient 3-blood cultures has been repeated which are currently pending 4continue Rocephin while waiting for urine culture finalized and no need for vancomycin Time with Patient: Less than 30
[2022-05-21] MEDS: METOPROLOL TARTRATE 12.5 MG TAB PO SCH (11:57)
--- NOTE | 2022-05-21 14:29 | P.PN ---
Subjective Progress Note Date: 05/21/22 H&P Date: 05/19/22 This is a 77-year-old female recently discharged from the hospital on 05/12/2022 with acute on chronic CHF ,with past medical history of peptic ulcer disease, diverticulosis ,chronic persistent atrial fibrillation on Eliquis, hypertension, hyperlipidemia, severe pulmonary hypertension, severe tricuspid regurgitation, gastroesophageal reflux disease, chronic respiratory failure, wears 6 L at home, former nicotine dependenceand multiple other medical issues, directed to the ER per the home care nurse. Apparently patient's blood pressure and heart rate regular low, patient does not recall the actual numbers but states she was asymptomatic, in a patient discharged on Midodrin, Revatio. Denies lightheadedness dizziness or focal deficits. Denies syncope. Denies chest pain, palpitations. Reported mild increase in shortness of breath and increasing edema but this morning patient's edema improved from last week and without shortness of breath. Patient is lying flat in bed with no orthopnea, without shortness of breath. Reports she feels better. Denies nausea, vomiting or abdominal pain. Denies diarrhea. Recent echo Doppler reported EF 55%, cari re pulmonary hypertension, RVSP 75 mmHg , dilated RV, moderate mitral regurgitation, severe tricuspid regurgitation ,small circumferential pericardial effusion . Hemoglobin 9.2, platelets 191 .On prior visit patient had declined cardiac catheterization given her risk of potentially require renal replacement therapy. Renal function stable. Positive blood culture gram-positive bacilli, suspecting skin contaminant in a patient afebrile with normal WBC. Received IV antibiotics of ceftriaxone in the ER. 05/20/2022 feels worse today with increased shortness of breath. Denies dizziness. Telemetry reporting controlled atrial fibrillation. Maintained on IV antibiotics of ceftriaxone. Repeat blood cultures in progress, suspecting contamination. Afebrile, normal WBC. 05/21/2022 diuresing well on Bumex IV, feeling better this morning. Denies chest pain, palpitations or increasing shortness of breath. Reports minimal dizziness. Rider catheter discontinued yesterday, bladder scanning in progress this morning. Reports she is voiding without difficulty. Denies dysuria. Maintained on ceftriaxone. Blood culture reporting bacillus species not anthracis, repeat blood culture in progress, possible acute cath associated UTI, though UA reported urine WBC 7, small amount leukocytes, negative for nitrates. BUN 55.3, creatinine 2.1. Denies nausea vomiting or diarrhea. Denies abdominal pain. Afebrile, normal WBCs. Proicalcitonin 0.16. Telemetry atrial fibrillation with heart rates in the low 100s to 1 teens. Objective - Vital Signs Vital signs: Vital Signs Temp 97.6 F 05/21/22 08:00 Pulse 114 H 05/21/22 08:00 Resp 18 05/21/22 08:00 BP 105/68 05/21/22 08:00 Pulse Ox 91 L 05/21/22 08:00 FiO2 Intake & Output 05/20/22 05/21/22 05/21/22 18:59 06:59 18:59 Intake Total 118 Output Total 250 700 228 Balance -132 -700 -228 Weight 61.9 kg 62 kg Intake: Oral 118 Output: Urine 250 700 Post Void Residual 228 Other: Voiding Method Indwelling Catheter Bedside Commode # Voids 1 2 # Bowel Movements 1 1 - Exam - Exam PHYSICAL EXAM: VITAL SIGNS: As above GENERAL: Alert and oriented 3, Sitting up in bed, no acute distress HEENT: Conjunctivae normal. eyes normal. MMM. NECK: Supple, no JVD. CARDIOVASCULAR: S1, S2, irregular, mild tachycardia ,Systolic murmur. RESPIRATION: Unlabored, Breath sounds CTA,diminished in the bases. ABDOMEN: Soft, nondistended, nontender . No guarding. no masses palpable.Bowel sounds heard. LEGS: decreased edema, no clubbing, no cyanosis, +DP NERVOUS SYSTEM: Cranial N 2-12 grossly normal. No focal deficits. Strength and sensation grossly intact. Skin: Warm and dry, no rash - Labs CBC & Chem 7: 05/20/22 06:19 05/21/22 05:38 Labs: Abnormal Lab Results - Last 24 Hours (Table) 05/21/22 Range/Units 05:38 BUN 55.3 H (9.0-27.0) mg/dL Creatinine 2.1 H (0.6-1.5) mg/dL Est GFR (CKD-EPI)AfAm 25.3 L (60.0-200.0) Est GFR (CKD-EPI)NonAf 21.8 L (60.0-200.0) BUN/Creatinine Ratio 26.33 H (12.00-20.00) Ratio Glucose 147 H (70-110) mg/dL Microbiology - Last 24 Hours (Table) 05/20/22 06:19 Blood Culture - Preliminary Blood No Growth after 24 hours 05/18/22 23:24 Blood Culture Gram Stain - Preliminary Blood 05/18/22 23:24 Blood Culture - Final Blood 05/18/22 23:39 Blood Culture Gram Stain - Final Blood Blood Culture - Final Bacillus species Not Anthracis Assessment and Plan Assessment: Acute on chronic congestive heart failure, diastolic dysfunction, preserved EF Severe pulmonary hypertension, RVSP 76, etiology unclear Bacteremia, bacillus species not anthracis,repeat blood cultures in progress. Chronic hypoxic respiratory failure, wears 6 L nasal cannula O2 at home Chronic renal failure, stage III secondary to cardiorenal syndrome. Urinary retention status post Rider catheter History of Covid-19 pneumonia, 06/28 Chronic Pulmonary hypertension, severe Chronic persistent atrial fibrillation, anticoagulated on Eliquis, dose decreased. CAD Hypertension Severe tricuspid regurgitation Former nicotine dependence Plan: Continue on current medication regime ,monitoring and symptomatic treatment. Transitioning of diuretics to oral in progress. Continue with post void bladder scans. Discharge planning in progress pending finalizing of cultures/infectious disease DC recommendations and clearance. The impression and plan of care has been dictated as directed. : I performed a history and examination of this patient, discussed the same with the dictator. I agree with the dictator's note ,documented as a scribe. Any additional findings or plans will be noted.
--- NOTE | 2022-05-21 16:45 | P.PN ---
Subjective Progress Note Date: 05/21/22 Principal diagnosis: Positive blood culture and a question of UTI Patient is a 77-year-old female with a past medical history significant for coronary artery disease pulmonary hypertension atrial fibrillation PFO dyslipidemia chronic respiratory failure on 6 L nasal cannula oxygen patient presented to hospital with worsening shortness of breath, patient noticed to have a positive blood culture and also have a positive UA with a question of possible cath associated UTI versus colonization. On today's evaluation that is 05/21/2022, the patient remains to be afebrile the patient is breathing comfortably 6 L nasal cannula, the patient denies having any chest pain cough is decreased intensity no nausea no vomiting no abdominal pain no diarrhea Objective - Vital Signs Vital signs: Vital Signs Temp 97.6 F 05/21/22 08:00 Pulse 114 H 05/21/22 08:00 Resp 18 05/21/22 08:00 BP 105/68 05/21/22 08:00 Pulse Ox 91 L 05/21/22 08:00 FiO2 Intake & Output 05/20/22 05/21/22 05/21/22 18:59 06:59 18:59 Intake Total 118 Output Total 250 700 228 Balance -132 -700 -228 Weight 61.9 kg 62 kg Intake: Oral 118 Output: Urine 250 700 Post Void Residual 228 Other: Voiding Method Indwelling Catheter Bedside Commode # Voids 1 2 # Bowel Movements 1 1 - Exam GENERAL DESCRIPTION: An elderly female lying in bed in no distress RESPIRATORY SYSTEM: Unlabored breathing , decreased breath sounds at bases HEART: S1 S2 regular rate and rhythm , ABDOMEN: Soft , no tenderness EXTREMITIES: No edema feet - Labs CBC & Chem 7: 05/20/22 06:19 05/21/22 05:38 Labs: Abnormal Lab Results - Last 24 Hours (Table) 05/20/22 05/21/22 Range/Units 06:19 05:38 Basophils # 0.12 H (0.00-0.10) X 10*3/uL BUN 55.3 H (9.0-27.0) mg/dL Creatinine 2.1 H (0.6-1.5) mg/dL Est GFR (CKD-EPI)AfAm 25.3 L (60.0-200.0) Est GFR (CKD-EPI)NonAf 21.8 L (60.0-200.0) BUN/Creatinine Ratio 26.33 H (12.00-20.00) Ratio Glucose 147 H (70-110) mg/dL Microbiology - Last 24 Hours (Table) 05/20/22 06:19 Blood Culture - Preliminary Blood No Growth after 24 hours 05/18/22 23:24 Blood Culture Gram Stain - Preliminary Blood 05/18/22 23:24 Blood Culture - Final Blood 05/18/22 23:39 Blood Culture Gram Stain - Final Blood Blood Culture - Final Bacillus species Not Anthracis Assessment and Plan (1) Positive blood culture Current Visit: Yes Status: Acute Code(s): R78.81 - BACTEREMIA SNOMED Code(s): 537426720 Plan: 1patient with a positive blood culture with gram-positive bacilli more likely skin contamination as the patient has no clinical disease to go along with it patient currently with no fever or elevated white count. 2positive UA possibly related to the Rider catheter which is chronic for this patient, however Rider catheter has been discontinued and the patient has no urinary symptoms 3-blood cultures has been repeated which are so far negative, no need for vanco mycin Time with Patient: Less than 30
[2022-05-21] MEDS: BUMETANIDE 1 MG TAB PO SCH (16:53)
[2022-05-21] MEDS: TAMSULOSIN 0.4 MG CAP.ER.24H PO SCH (17:52)
[2022-05-22] MEDS: SYMBICORT 80-4.5 MCG INHALER INHALATION SCH ×2 (08:06→19:30)
[2022-05-22] MEDS: PANTOPRAZOLE 40 MG TABLET PO SCH (08:56)
[2022-05-22] MEDS: SILDENAFIL 20 MG TAB PO SCH ×3 (08:56→19:32)
[2022-05-22] MEDS: APIXABAN 2.5 MG TABLET PO SCH ×2 (08:56→19:32)
[2022-05-22] MEDS: ATORVASTATIN 40 MG TAB PO SCH (08:56)
[2022-05-22] MEDS: POTASSIUM CHLORIDE ER 10 MEQ TAB.ER.PRT PO SCH ×2 (08:56→19:33)
[2022-05-22] MEDS: BUMETANIDE 1 MG TAB PO SCH ×2 (08:56→16:46)
[2022-05-22] MEDS: MIDODRINE 5 MG TAB PO SCH ×3 (08:56→16:46)
[2022-05-22 11:34] LABS: Basophils # (A) 0.07 X 10*3/uL (0.00-0.10); Basophils % (A) 1.1 %; Eosinophils # (A) 0.18 X 10*3/uL (0.04-0.35); Eosinophils % (A) 2.8 %; HCT 30.6 % (37.2-46.3); HGB 9.3 g/dL (12.0-15.0); Immature Grans, Automated 0.3 %; Lymphocytes # (A) 1.26 X 10*3/uL (0.90-5.00); Lymphocytes % (A) 19.6 %; MCH 29.9 pg (27.0-32.0); MCHC 30.4 g/dL (32.0-37.0); MCV 98.4 fL (80.0-97.0); Mean Platelet Volume 10.6 fL (9.5-12.2); Monocytes # (A) 0.56 X 10*3/uL (0.20-1.00); Monocytes % (A) 8.7 %; NRBC Per 100 WBC 0 /100 WBCS (0.0-0.0); Neutrophils # (A) 4.35 X 10*3/uL (1.80-7.70); Neutrophils % (A) 67.5 %; Platelet Count 220 X 10*3/uL (140-440); RBC 3.11 X 10*6/uL (4.10-5.20); RDW 27.2 % (11.5-14.5); WBC 6.44 X 10*3/uL (4.50-10.00)
[2022-05-22 11:51] LABS: African American GFR (CKD) 26.8 (60.0-200.0); Anion Gap 13.3 mmol/L (10.00-18.00); BUN/Creat Ratio 27.9 Ratio (12.00-20.00); Blood Urea Nitrogen 55.8 mg/dL (9.0-27.0); Calcium 9.5 mg/dL (8.7-10.3); Carbon Dioxide 24.7 mmol/L (20.0-27.5); Non-African American GFR(CKD) 23.2 (60.0-200.0)
[2022-05-22] MEDS: METOPROLOL TARTRATE 12.5 MG TAB PO SCH (12:18)
[2022-05-22] MEDS: TAMSULOSIN 0.4 MG CAP.ER.24H PO SCH (17:36)
[2022-05-22] MEDS: polyethylene glycoL 3350 17 GM POWD.PACK PO SCH (20:10)
--- NOTE | 2022-05-22 22:14 | P.PN ---
Subjective Progress Note Date: 05/15/22 Principal diagnosis: Positive blood culture and a question of UTI Patient is a 77-year-old female with a past medical history significant for coronary artery disease pulmonary hypertension atrial fibrillation PFO dyslipidemia chronic respiratory failure on 6 L nasal cannula oxygen patient presented to hospital with worsening shortness of breath, patient noticed to have a positive blood culture and also have a positive UA with a question of possible cath associated UTI versus colonization. On today's evaluation that is 05/22/2022, the patient continues to be afebrile the patient is breathing comfortably 6 L nasal cannula, the patient denies chest pain, the pt cough has decreased intensity no nausea no vomiting no abdominal pain no diarrhea Objective - Vital Signs Vital signs: Vital Signs Temp 97.6 F 05/22/22 14:00 Pulse 105 H 05/22/22 14:00 Resp 19 05/22/22 14:00 BP 97/62 05/22/22 14:00 Pulse Ox 94 L 05/22/22 14:00 FiO2 Intake & Output 05/21/22 05/22/22 05/22/22 18:59 06:59 18:59 Intake Total 118 472 Output Total 1418 1297 700 Balance -1300 -1297 -228 Weight 61.5 kg Intake: Oral 118 472 Output: Urine 1190 1200 700 Post Void Residual 228 97 Other: Voiding Method Bedside Commode Bedside Commode Bedside Commode # Bowel Movements 1 - Exam GENERAL DESCRIPTION: An elderly female lying in bed in no distress RESPIRATORY SYSTEM: Unlabored breathing , decreased breath sounds at bases HEART: S1 S2 regular rate and rhythm , ABDOMEN: Soft , no tenderness EXTREMITIES: No edema feet - Labs CBC & Chem 7: 05/22/22 07:10 05/22/22 07:10 Labs: Abnormal Lab Results - Last 24 Hours (Table) 05/22/22 05/22/22 Range/Units 07:10 07:10 RBC 3.11 L (4.10-5.20) X 10*6/uL Hgb 9.3 L (12.0-15.0) g/dL Hct 30.6 L (37.2-46.3) % MCV 98.4 H (80.0-97.0) fL MCHC 30.4 L (32.0-37.0) g/dL RDW 27.2 H (11.5-14.5) % BUN 55.8 H (9.0-27.0) mg/dL Creatinine 2.0 H (0.6-1.5) mg/dL Est GFR (CKD-EPI)AfAm 26.8 L (60.0-200.0) Est GFR (CKD-EPI)NonAf 23.2 L (60.0-200.0) BUN/Creatinine Ratio 27.90 H (12.00-20.00) Ratio Glucose 117 H (70-110) mg/dL Microbiology - Last 24 Hours (Table) 05/18/22 23:24 Blood Culture Gram Stain - Final Blood Blood Culture - Final Diphtheroid species 05/20/22 06:19 Blood Culture - Preliminary Blood No Growth after 48 hours Assessment and Plan (1) Positive blood culture Current Visit: Yes Status: Acute Code(s): R78.81 - BACTEREMIA SNOMED C ode(s): 351960364 Plan: 1patient with a positive blood culture with gram-positive bacilli more likely skin contamination as the patient has no clinical disease to go along with it patient currently with no fever or elevated white count. 2positive UA possibly related to the Rider catheter which is chronic for this patient, however Rider catheter has been discontinued and the patient has no urinary symptoms , dc rocephin 3-blood cultures has been repeated which are so far negative, pt will be monitored off vancomycin Time with Patient: Less than 30
[2022-05-23] MEDS: SYMBICORT 80-4.5 MCG INHALER INHALATION SCH ×2 (08:24→19:29)
[2022-05-23] MEDS: polyethylene glycoL 3350 17 GM POWD.PACK PO SCH (09:15)
[2022-05-23] MEDS: BUMETANIDE 1 MG TAB PO SCH ×2 (09:15→16:31)
[2022-05-23] MEDS: MIDODRINE 5 MG TAB PO SCH ×3 (09:16→16:30)
[2022-05-23] MEDS: POTASSIUM CHLORIDE ER 10 MEQ TAB.ER.PRT PO SCH ×2 (09:16→19:47)
[2022-05-23] MEDS: SILDENAFIL 20 MG TAB PO SCH ×3 (09:16→19:48)
[2022-05-23] MEDS: ATORVASTATIN 40 MG TAB PO SCH (09:16)
[2022-05-23] MEDS: PANTOPRAZOLE 40 MG TABLET PO SCH (09:16)
[2022-05-23] MEDS: APIXABAN 2.5 MG TABLET PO SCH ×2 (09:16→19:48)
[2022-05-23] MEDS: METOPROLOL TARTRATE 12.5 MG TAB PO SCH (11:49)
[2022-05-23] MEDS: TAMSULOSIN 0.4 MG CAP.ER.24H PO SCH (17:57)
--- NOTE | 2022-05-24 02:52 | P.PN ---
Subjective Progress Note Date: 05/22/22 This is a 77-year-old female recently discharged from the hospital on 05/12/2022 with acute on chronic CHF ,with past medical history of peptic ulcer disease, diverticulosis ,chronic persistent atrial fibrillation on Eliquis, hypertension, hyperlipidemia, severe pulmonary hypertension, severe tricuspid regurgitation, gastroesophageal reflux disease, chronic respiratory failure, wears 6 L at home, former nicotine dependenceand multiple other medical issues, directed to the ER per the home care nurse. Apparently patient's blood pressure and heart rate regular low, patient does not recall the actual numbers but states she was asymptomatic, in a patient discharged on Midodrin, Revatio. Denies lighthe adedness dizziness or focal deficits. Denies syncope. Denies chest pain, palpitations. Reported mild increase in shortness of breath and increasing edema but this morning patient's edema improved from last week and without shortness of breath. Patient is lying flat in bed with no orthopnea, without shortness of breath. Reports she feels better. Denies nausea, vomiting or abdominal pain. Denies diarrhea. Recent echo Doppler reported EF 55%, severe pulmonary hypertension, RVSP 75 mmHg , dilated RV, moderate mitral regurgitation, severe tricuspid regurgitation ,small circumferential pericardial effusion . Hemoglobin 9.2, platelets 191 .On prior visit patient had declined cardiac catheterization given her risk of potentially require renal replacement therapy. Renal function stable. Positive blood culture gram-positive bacilli, suspecting skin contaminant in a patient afebrile with normal WBC. Received IV antibiotics of ceftriaxone in the ER. 05/20/2022 feels worse today with increased shortness of breath. Denies dizziness. Telemetry reporting controlled atrial fibrillation. Maintained on IV antibiotics of ceftriaxone. Repeat blood cultures in progress, suspecting conta mination. Afebrile, normal WBC. 05/21/2022 diuresing well on Bumex IV, feeling better this morning. Denies chest pain, palpitations or increasing shortness of breath. Reports minimal dizziness. Conner catheter discontinued yesterday, bladder scanning in progress this morning. Reports she is voiding without difficulty. Denies dysuria. Maintained on ceftriaxone. Blood culture reporting bacillus species not anthracis, repeat blood culture in progress, possible acute cath associated UTI, though UA reported urine WBC 7, small amount leukocytes, negative for nitrates. BUN 55.3, creatinine 2.1. Denies nausea vomiting or diarrhea. Denies abdominal pain. Afebrile, normal WBCs. Proicalcitonin 0.16. Telemetry atrial fibrillation with heart rates in the low 100s to 1 teens. 05/22/2022 Patient is currently resting in the bed. Awake alert and oriented. Still short of breath with exertional dyspnea. Requiring oxygen 6 L via nasal cannula. No complaints of cough or sputum production. No chest pain. No nausea vomiting abdominal pain or diarrhea. Laboratory pressure WBC 6.4 hemoglobin 9.3 and platelets 220 BUN 55.8 and creatinine 2.0 and calcium 9.5. Procalcitonin level was 0.16. Patient is being continued on duo nebs, Symbicort and also on sildenafil for severe pulmonary hypertension right heart failure. Blood cultures showing gram-positive bacilli likely contaminant and ceftriaxone has been discontinued. Cardiology and ID is on board. Current medications reviewed. Objective - Vital Signs Vital signs: Vital Signs Temp 97.8 F 05/22/22 08:00 Pulse 114 H 05/22/22 08:00 Resp 19 05/22/22 08:00 BP 110/73 05/22/22 08:00 Pulse Ox 95 05/22/22 08:00 FiO2 Intake & Output 05/21/22 05/22/22 05/22/22 18:59 06:59 18:59 Intake Total 118 118 Output Total 1418 1297 700 Balance -1300 -1297 -582 Weight 61.5 kg Intake: Oral 118 118 Output: Urine 1190 1200 700 Post Void Residual 228 97 Other: Voiding Method Bedside Commode Bedside Commode Bedside Commode # Bowel Movements 1 - Exam VITAL SIGNS: As above GENERAL: Alert and oriented 3, Sitting up in bed, no acute distress HEENT: Conjunctivae normal. eyes normal. MMM. NECK: Supple, no JVD. CARDIOVASCULAR: S1, S2, irregular, mild tachycardia ,Systolic murmur. RESPIRATION: Unlabored, Breath sounds CTA,diminished in the bases. ABDOMEN: Soft, nondistended, nontender . No guarding. no masses palpable.Bowel sounds heard. LEGS: decreased edema, no clubbing, no cyanosis, +DP NERVOUS SYSTEM: Cranial N 2-12 grossly normal. No focal deficits. Strength and sensation grossly intact. Skin: Warm and dry, no rash - Labs CBC & Chem 7: 05/22/22 07:10 05/22/22 07:10 Labs: Abnormal Lab Results - Last 24 Hours (Table) 05/22/22 05/22/22 Range/Units 07:10 07:10 RBC 3.11 L (4.10-5.20) X 10*6/uL Hgb 9.3 L (12.0-15.0) g/dL Hct 30.6 L (37.2-46.3) % MCV 98.4 H (80.0-97.0) fL MCHC 30.4 L (32.0-37.0) g/dL RDW 27.2 H (11.5-14.5) % BUN 55.8 H (9.0-27.0) mg/dL Creatinine 2.0 H (0.6-1.5) mg/dL Est GFR (CKD-EPI)AfAm 26.8 L (60.0-200.0) Est GFR (CKD-EPI)NonAf 23.2 L (60.0-200.0) BUN/Creatinine Ratio 27.90 H (12.00-20.00) Ratio Glucose 117 H (70-110) mg/dL Microbiology - Last 24 Hours (Table) 05/18/22 23:24 Blood Culture Gram Stain - Final Blood Blood Culture - Final Diphtheroid species 05/20/22 06:19 Blood Culture - Preliminary Blood No Growth after 48 hours Assessment and Plan Assessment: Acute on chronic congestive heart failure, diastolic dysfunction, preserved EF Severe pulmonary hypertension, RVSP 76, etiology unclear Bacteremia, suspecting contamination, repeat blood cultures in progress Chronic hypoxic respiratory failure, wears 6 L nasal cannula O2 at home Chronic renal failure, stage III secondary to cardiorenal syndrome. Urinary retention status post Conner catheter History of Covid-19 pneumonia, 06/28 Chronic Pulmonary hypertension, severe Chronic persistent atrial fibrillation, anticoagulated on Eliquis, dose decreased. CAD Hypertension Severe tricuspid regurgitation Former nicotine dependence Plan: Continue on current medication regime ,monitoring and symptomatic treatment. on bumex for diuresisi, also in midodrin. cardiology is on board, Anticoagulated on eliquis. DC of conner cath. with post void residuals. Repeat blood cultures finalizing.Discharge planning in progress. Time with Patient: Greater than 30
--- NOTE | 2022-05-24 02:55 | P.PN ---
Subjective Progress Note Date: 05/23/22 This is a 77-year-old female recently discharged from the hospital on 05/12/2022 with acute on chronic CHF ,with past medical history of peptic ulcer disease, diverticulosis ,chronic persistent atrial fibrillation on Eliquis, hypertension, hyperlipidemia, severe pulmonary hypertension, severe tricuspid regurgitation, gastroesophageal reflux disease, chronic respiratory failure, wears 6 L at home, former nicotine dependenceand multiple other medical issues, directed to the ER per the home care nurse. Apparently patient's blood pressure and heart rate regular low, patient does not recall the actual numbers but states she was asymptomatic, in a patient discharged on Midodrin, Revatio. Denies lighthe adedness dizziness or focal deficits. Denies syncope. Denies chest pain, palpitations. Reported mild increase in shortness of breath and increasing edema but this morning patient's edema improved from last week and without shortness of breath. Patient is lying flat in bed with no orthopnea, without shortness of breath. Reports she feels better. Denies nausea, vomiting or abdominal pain. Denies diarrhea. Recent echo Doppler reported EF 55%, severe pulmonary hypertension, RVSP 75 mmHg , dilated RV, moderate mitral regurgitation, severe tricuspid regurgitation ,small circumferential pericardial effusion . Hemoglobin 9.2, platelets 191 .On prior visit patient had declined cardiac catheterization given her risk of potentially require renal replacement therapy. Renal function stable. Positive blood culture gram-positive bacilli, suspecting skin contaminant in a patient afebrile with normal WBC. Received IV antibiotics of ceftriaxone in the ER. 05/20/2022 feels worse today with increased shortness of breath. Denies dizziness. Telemetry reporting controlled atrial fibrillation. Maintained on IV antibiotics of ceftriaxone. Repeat blood cultures in progress, suspecting conta mination. Afebrile, normal WBC. 05/21/2022 diuresing well on Bumex IV, feeling better this morning. Denies chest pain, palpitations or increasing shortness of breath. Reports minimal dizziness. Conner catheter discontinued yesterday, bladder scanning in progress this morning. Reports she is voiding without difficulty. Denies dysuria. Maintained on ceftriaxone. Blood culture reporting bacillus species not anthracis, repeat blood culture in progress, possible acute cath associated UTI, though UA reported urine WBC 7, small amount leukocytes, negative for nitrates. BUN 55.3, creatinine 2.1. Denies nausea vomiting or diarrhea. Denies abdominal pain. Afebrile, normal WBCs. Proicalcitonin 0.16. Telemetry atrial fibrillation with heart rates in the low 100s to 1 teens. 05/22/2022 Patient is currently resting in the bed. Awake alert and oriented. Still short of breath with exertional dyspnea. Requiring oxygen 6 L via nasal cannula. No complaints of cough or sputum production. No chest pain. No nausea vomiting abdominal pain or diarrhea. Laboratory pressure WBC 6.4 hemoglobin 9.3 and platelets 220 BUN 55.8 and creatinine 2.0 and calcium 9.5. Procalcitonin level was 0.16. Patient is being continued on duo nebs, Symbicort and also on sildenafil for severe pulmonary hypertension right heart failure. Blood cultures showing gram-positive bacilli likely contaminant and ceftriaxone has been discontinued. Cardiology and ID is on board. 05/23/2022 Patient is currently sitting on the commode. Awake alert and oriented x3. No complaints of chest pain or shortness of breath. Requiring oxygen via nasal cannula and is being titrated down to room air. Patient is being diuresed with Bumex. Leg swelling is much improved. No complaints of cough or sputum production. Otherwise patient is off antibiotics. Repeat blood cultures showed no growth. Blood pressure is stable. No nausea vomiting abdominal pain or diarrhea. Tolerating oral intake. Follow- up CBC and BMP tomorrow and possible discharge. Current medications reviewed. Objective - Vital Signs Vital signs: Vital Signs Temp 98.1 F 05/23/22 14:00 Pulse 127 H 05/23/22 14:00 Resp 20 05/23/22 14:00 BP 97/65 05/23/22 14:00 Pulse Ox 95 05/23/22 15:45 FiO2 Intake & Output 05/22/22 05/23/22 05/23/22 18:59 06:59 18:59 Intake Total 472 773 Output Total 700 2049 1823 Balance - -105 Weight 61.4 kg Intake: Oral 472 773 Output: Urine 700 2049 950 Post Void Residual 873 Other: Voiding Method Bedside Commode Bedside Commode Bedside Commode # Voids 2 # Bowel Movements 1 1 - Exam VITAL SIGNS: As above GENERAL: Alert and oriented 3, Sitting up in bed, no acute distress HEENT: Conjunctivae normal. eyes normal. MMM. NECK: Supple, no JVD. CARDIOVASCULAR: S1, S2, irregular, mild tachycardia ,Systolic murmur. RESPIRATION: Unlabored, Breath sounds CTA,diminished in the bases. ABDOMEN: Soft, nondistended, nontender . No guarding. no masses palpable.Bowel sounds heard. LEGS: decreased edema, no clubbing, no cyanosis, +DP NERVOUS SYSTEM: Cranial N 2-12 grossly normal. No focal deficits. Strength and sensation grossly intact. Skin: Warm and dry, no rash - Labs CBC & Chem 7: 05/22/22 07:10 05/22/22 07:10 Labs: Microbiology - Last 24 Hours (Table) 05/20/22 06:19 Blood Culture - Preliminary Blood No Growth after 72 hours 05/18/22 23:24 Blood Culture Gram Stain - Final Blood Blood Culture - Final Diphtheroid species Assessment and Plan Assessment: Acute on chronic congestive heart failure, diastolic dysfunction, preserved EF Severe pulmonary hypertension, RVSP 76, etiology unclear Bacteremia, suspecting contamination, repeat blood cultures in progress Chronic hypoxic respiratory failure, wears 6 L nasal cannula O2 at home Chronic renal failure, stage III secondary to cardiorenal syndrome. Urinary retention status post Conner catheter History of Covid-19 pneumonia, 06/28 Chronic Pulmonary hypertension, severe Chronic persistent atrial fibrillation, anticoagulated on Eliquis, dose decreased. CAD Hypertension Severe tricuspid regurgitation Former nicotine dependence Plan: Continue on bumex for diuresisi, also in midodrin. cardiology is on board, Anticoagulated on eliquis. DC of conner cath. with post void residuals. Repeat blood cultures finalizing.Dis charge planning in progress. Time with Patient: Greater than 30
[2022-05-24] MEDS: SILDENAFIL 20 MG TAB PO SCH (08:31)
[2022-05-24] MEDS: POTASSIUM CHLORIDE ER 10 MEQ TAB.ER.PRT PO SCH (08:31)
[2022-05-24] MEDS: BUMETANIDE 1 MG TAB PO SCH (08:31)
[2022-05-24] MEDS: PANTOPRAZOLE 40 MG TABLET PO SCH (08:31)
[2022-05-24] MEDS: ATORVASTATIN 40 MG TAB PO SCH (08:32)
[2022-05-24] MEDS: APIXABAN 2.5 MG TABLET PO SCH (08:32)
[2022-05-24] MEDS: MIDODRINE 5 MG TAB PO SCH ×2 (08:32→13:40)
[2022-05-24] MEDS: polyethylene glycoL 3350 17 GM POWD.PACK PO SCH (08:32)
[2022-05-24 08:33] VITALS: BP 109/72; PULSE 105; RESP 19; TEMP 98.6
[2022-05-24] MEDS: SYMBICORT 80-4.5 MCG INHALER INHALATION SCH (08:36)
[2022-05-24 09:18] LABS: Basophils # (A) 0.08 X 10*3/uL (0.00-0.10); Basophils % (A) 1.1 %; Eosinophils # (A) 0.17 X 10*3/uL (0.04-0.35); Eosinophils % (A) 2.4 %; HCT 30.8 % (37.2-46.3); HGB 9.4 g/dL (12.0-15.0); Immature Grans, Automated 0.3 %; Lymphocytes # (A) 1.25 X 10*3/uL (0.90-5.00); MCH 30.4 pg (27.0-32.0); MCHC 30.5 g/dL (32.0-37.0); MCV 99.7 fL (80.0-97.0); Mean Platelet Volume 11.3 fL (9.5-12.2); Monocytes # (A) 0.53 X 10*3/uL (0.20-1.00); Monocytes % (A) 7.6 %; NRBC Per 100 WBC 0 /100 WBCS (0.0-0.0); Neutrophils # (A) 4.91 X 10*3/uL (1.80-7.70); Neutrophils % (A) 70.6 %; Platelet Count 222 X 10*3/uL (140-440); RBC 3.09 X 10*6/uL (4.10-5.20); RDW 26.9 % (11.5-14.5); WBC 6.96 X 10*3/uL (4.50-10.00)
[2022-05-24 09:38] LABS: African American GFR (CKD) 30.5 (60.0-200.0); Anion Gap 17.1 mmol/L (10.00-18.00); BUN/Creat Ratio 32.39 Ratio (12.00-20.00); Blood Urea Nitrogen 58.3 mg/dL (9.0-27.0); Calcium 9.2 mg/dL (8.7-10.3); Carbon Dioxide 23.9 mmol/L (20.0-27.5); Non-African American GFR(CKD) 26.3 (60.0-200.0); Potassium 3.7 mmol/L (3.5-5.5)
--- NOTE | 2022-05-24 10:07 | P.DS ---
Providers Date of admission: 05/19/22 13:15 Expected date of discharge: 05/24/22 Attending physician: Riki Toth MD Consults: 05/19/22 16:45 Consult Physician Routine Consulting Provider: Haseeb Degroot Consult Reason/Comments: Positive blood cultures Do you want consulting provider notified?: Yes Primary care physician: Nuvia Lerner Hospital Course: Final Diagnoses: Acute on chronic congestive heart failure, diastolic dysfunction, preserved EF Severe pulmonary hypertension, RVSP 76, etiology unclear Bacteremia, bacillus species not anthracis, contamination suspected, repeat blood cultures cleared Chronic hypoxic respiratory failure, wears 6 L nasal cannula O2 at home Chronic renal failure, stage III secondary to cardiorenal syndrome. Anemia of chronic disease Urinary retention status post Rider catheter History of Covid-19 pneumonia, 06/28 Chronic Pulmonary hypertension, severe Chronic persistent atrial fibrillation, anticoagulated on Eliquis, dose decreased. CAD Hypertension Severe tricuspid regurgitation Former nicotine dependence Hospital course:This is a 77-year-old female recently discharged from the hospital on 05/12/2022 with acute on chronic CHF ,with past medical history of peptic ulcer disease, diverticulosis ,chronic persistent atrial fibrillation on Eliquis, hypertension, hyperlipidemia, severe pulmonary hypertension, severe tricuspid regurgitation, gastroesophageal reflux disease, chronic respiratory failure, wears 6 L at home, former nicotine dependenceand multiple other medical issues, directed to the ER per the home care nurse. Apparently patient's blood pressure and heart rate regular low, patient does not recall the actual numbers but states she was asymptomatic, in a patient discharged on Midodrin, Revatio. Denies lightheadedness dizziness or focal deficits. Denies syncope. Denies chest pain, palpitations. Reported mild increase in shortness of breath and increasing edema but this morning patient's edema improved from last week and without shortness of breath. Patient is lying flat in bed with no orthopnea, without shortness of breath. Reports she feels better. Denies nausea, vomiting or abdominal pain. Denies diarrhea. Recent echo Doppler reported EF 55%, severe pulmonary hypertension, RVSP 75 mmHg , dilated RV, moderate mitral regurgitation, severe tricuspid regurgitation ,small circumferential pericardial effusion . Hemoglobin 9.2, platelets 191 .On prior visit patient had declined cardiac catheterization given her risk of potentially require renal replacement therapy. Renal function stable. Positive blood culture gram-positive bacilli, suspecting skin contaminant in a patient afebrile with normal WBC. Received IV antibiotics of ceftriaxone in the ER. 05/20/2022 feels worse today with increased shortness of breath. Denies dizziness. Telemetry reporting controlled atrial fibrillation. Maintained on IV antibiotics of ceftriaxone. Repeat blood cultures in progress, suspecting contamination. Afebrile, normal WBC. 05/21/2022 diuresing well on Bumex IV, feeling better this morning. Denies chest pain, palpitations or increasing shortness of breath. Reports minimal dizziness. Rider catheter discontinued yesterday, bladder scanning in progress this morning. Reports she is voiding without difficulty. Denies dysuria. Maintained on ceftriaxone. Blood culture reporting bacillus species not anthracis, repeat blood culture in progress, possible acute cath associated UTI, though UA reported urine WBC 7, small amount leukocytes, negative for nitrates. BUN 55.3, creatinine 2.1. Denies nausea vomiting or diarrhea. Denies abdominal pain. Afebrile, normal WBCs. Proicalcitonin 0.16. Telemetry atrial fibrillation with heart rates in the low 100s to 1 teens. Remains afebrile, normal WBC. Denies chest pain, palpitations or shortness of breath. Continues on 6 L nasal cannula maintaining O2 sats in the 90s-baseline. No urinary symptoms, antibiotics have been discontinued. Significant clinical improvement. Patient will be discharged home today in a stable condition with guarded prognosis pending final DC recommendations and clearance per infectious disease. The impression and plan of care has been dictated as directed. : I performed a history and examination of this patient, discussed the same with the dictator. I agree with the dictator's note ,documented as a scribe. Any additional findings or plans will be noted. Patient Condition at Discharge: Stable Plan - Discharge Summary Discharge Rx Participant: No New Discharge Prescriptions: New Bumetanide [BUMEX] 2 mg PO BID@0900,1600 #60 tab polyethylene glycoL 3350 [Miralax] 17 gm PO DAILY packet Continue Ipratropium-Albuterol Nebulize [Duoneb 0.5 mg-3 mg/3 ml Soln] 3 ml INHALATION RT-BID PRN PRN Reason: Shortness Of Breath Acetaminophen [Tylenol] 325 mg PO TID PRN PRN Reason: Pain Albuterol Sulfate [Ventolin HFA] 1 puff INHALATION RT-Q4H PRN PRN Reason: Shortness Of Breath Potassium Chloride ER [K-Dur 10] 10 meq PO BID Apixaban [Eliquis] 2.5 mg PO BID 30 Days #60 tab Wheat Dextrin [Benefiber] 1 packet PO DAILY Fluticasone Propion/Salmeterol [Fluticasone-Salmeterol 250-50] 1 puff INHALATION RT-BID Atorvastatin [Lipitor] 40 mg PO DAILY Pantoprazole [Protonix] 40 mg PO DAILY 30 Days #30 tab Sildenafil [Revatio] 20 mg PO TID #90 tab Midodrine [ProAmatine] 10 mg PO TID #180 tablet Metoprolol Succinate [Metoprolol Succinate ER] 12.5 mg PO DAILY@1200 Discontinued Furosemide [Lasix] 40 mg PO BID Spironolactone 25 mg PO DAILY metOLazone [Zaroxolyn] 5 mg PO Q48H PRN PRN Reason: Edema Discharge Medication List Acetaminophen [Tylenol] 325 mg PO TID PRN 06/26/21 [History] Fluticasone Propion/Salmeterol [Fluticasone-Salmeterol 250-50] 1 puff INHALATION RT-BID 06/26/21 [History] Ipratropium-Albuterol Nebulize [Duoneb 0.5 mg-3 mg/3 ml Soln] 3 ml INHALATION RT-BID PRN 06/26/21 [History] Albuterol Sulfate [Ventolin HFA] 1 puff INHALATION RT-Q4H PRN 02/01/22 [History] Atorvastatin [Lipitor] 40 mg PO DAILY 02/01/22 [History] Potassium Chloride ER [K-Dur 10] 10 meq PO BID 02/01/22 [History] Apixaban [Eliquis] 2.5 mg PO BID 30 Days #60 tab 02/06/22 [Rx] Pantoprazole [Protonix] 40 mg PO DAILY 30 Days #30 tab 02/06/22 [Rx] Wheat Dextrin [Benefiber] 1 packet PO DAILY 05/03/22 [History] Midodrine [ProAmatine] 10 mg PO TID #180 tablet 05/12/22 [Rx] Sildenafil [Revatio] 20 mg PO TID #90 tab 05/12/22 [Rx] Metoprolol Succinate [Metoprolol Succinate ER] 12.5 mg PO DAILY@1200 05/18/22 [History] Bumetanide [BUMEX] 2 mg PO BID@0900,1600 #60 tab 05/24/22 [Rx] polyethylene glycoL 3350 [Miralax] 17 gm PO DAILY packet 05/24/22 [Rx] Follow up Appointment(s)/Referral(s): Hailey Goldman MD [STAFF PHYSICIAN] - 1 Week [facility], [NON-STAFF] - 1 Week Nuvia Lerner MD [Primary Care Provider] - 3 Days
[2022-05-24] MEDS: METOPROLOL TARTRATE 12.5 MG TAB PO SCH (13:40)
--- NOTE | 2022-05-31 22:51 | P.PN ---
Subjective Progress Note Date: 05/23/22 Principal diagnosis: Positive blood culture and a question of UTI Patient is a 77-year-old female with a past medical history significant for coronary artery disease pulmonary hypertension atrial fibrillation PFO dyslipidemia chronic respiratory failure on 6 L nasal cannula oxygen patient presented to hospital with worsening shortness of breath, patient noticed to have a positive blood culture and also have a positive UA with a question of possible cath associated UTI versus colonization. On today's evaluation that is 05/23/2022, the patient remains to be afebrile the patient is breathing comfortably nasal cannula oxygen, the patient denies chest pain, the patient cough has decreased intensity and not bringing up any sputum, no nausea no vomiting no abdominal pain no diarrhea Objective - Vital Signs Vital signs: Vital Signs Temp 98.1 F 05/23/22 08:00 Pulse 117 H 05/23/22 08:00 Resp 91 H 05/23/22 08:00 BP 96/60 05/23/22 08:00 Pulse Ox 20 L 05/23/22 08:00 FiO2 Intake & Output 05/22/22 05/23/22 05/23/22 18:59 06:59 18:59 Intake Total 472 236 Output Total 700 0 Balance -228 -2049 236 Weight 61.4 kg Intake: Oral 472 236 Output: Urine 700 0 Other: Voiding Method Bedside Commode Bedside Commode # Voids 2 # Bowel Movements 1 - Exam GENERAL DESCRIPTION: An elderly female lying in bed in no distress RESPIRATORY SYSTEM: Unlabored breathing , decreased breath sounds at bases HEART: S1 S2 regular rate and rhythm , ABDOMEN: Soft , no tenderness EXTREMITIES: No edema feet - Labs CBC & Chem 7: 05/24/22 05:59 05/24/22 05:59 Labs: Abnormal Lab Results - Last 24 Hours (Table) 05/22/22 05/22/22 Range/Units 07:10 07:10 RBC 3.11 L (4.10-5.20) X 10*6/uL Hgb 9.3 L (12.0-15.0) g/dL Hct 30.6 L (37.2-46.3) % MCV 98.4 H (80.0-97.0) fL MCHC 30.4 L (32.0-37.0) g/dL RDW 27.2 H (11.5-14.5) % BUN 55.8 H (9.0-27.0) mg/dL Creatinine 2.0 H (0.6-1.5) mg/dL Est GFR (CKD-EPI)AfAm 26.8 L (60.0-200.0) Est GFR (CKD-EPI)NonAf 23.2 L (60.0-200.0) BUN/Creatinine Ratio 27.90 H (12.00-20.00) Ratio Glucose 117 H (70-110) mg/dL Microbiology - Last 24 Hours (Table) 05/20/22 06:19 Blood Culture - Preliminary Blood No Growth after 72 hours 05/18/22 23:24 Blood Culture Gram Stain - Final Blood Blood Culture - Final Diphtheroid species Assessment and Plan (1) Positive blood culture Status: Acute Code(s): R78.81 - BACTEREMIA SNOMED Code(s): 987323414 Plan: 1patient with a positive blood culture with gram-positive bacilli more likely skin contamination as the patient has no clinical disease to go along with it patient currently with no fever or elevated white count. 2positive UA possibly related to the Rider catheter which is chronic for this patient, however Rider catheter has been discontinued and the patient has no urinary symptoms , no need for Rocephin 3-blood cultures has been repeated which are so far negative, we'll continue to monitor the patient closely off vancomycin Time with Patient: Less than 30
--- NOTE | 2022-05-31 22:52 | P.PN ---
Subjective Progress Note Date: 05/24/22 Principal diagnosis: Positive blood culture and a question of UTI Patient is a 77-year-old female with a past medical history significant for coronary artery disease pulmonary hypertension atrial fibrillation PFO dyslipidemia chronic respiratory failure on 6 L nasal cannula oxygen patient presented to hospital with worsening shortness of breath, patient noticed to have a positive blood culture and also have a positive UA with a question of possible cath associated UTI versus colonization. On today's evaluation that is 05/24/2022, the patient denies any fever or any chills the patient is breathing comfortably nasal cannula oxygen, the patient denies chest pain, the patient cough has decreased intensity and mostly dry in nature, patient denies nausea no vomiting no abdominal pain no diarrhea Objective - Vital Signs Vital signs: Vital Signs Temp 98.6 F 05/24/22 08:00 Pulse 105 H 05/24/22 08:00 Resp 19 05/24/22 08:00 BP 109/72 05/24/22 08:00 Pulse Ox 90 L 05/24/22 08:38 FiO2 Intake & Output 05/23/22 05/24/22 05/24/22 18:59 06:59 18:59 Intake Total 773 418 Output Total 6351 1522 710 Balance -1325 -1522 -292 Weight 60.8 kg Intake: Oral 773 418 Output: Urine 1225 1300 500 Post Void Residual 873 222 210 Other: Voiding Method Bedside Commode Bedside Commode Bedside Commode # Voids 1 # Bowel Movements 1 1 1 - Exam GENERAL DESCRIPTION: An elderly female lying in bed in no distress RESPIRATORY SYSTEM: Unlabored breathing , decreased breath sounds at bases HEART: S1 S2 regular rate and rhythm , ABDOMEN: Soft , no tenderness EXTREMITIES: No edema feet - Labs CBC & Chem 7: 05/24/22 05:59 05/24/22 05:59 Labs: Abnormal Lab Results - Last 24 Hours (Table) 05/24/22 05/24/22 Range/Units 05:59 05:59 RBC 3.09 L (4.10-5.20) X 10*6/uL Hgb 9.4 L (12.0-15.0) g/dL Hct 30.8 L (37.2-46.3) % MCV 99.7 H (80.0-97.0) fL MCHC 30.5 L (32.0-37.0) g/dL RDW 26.9 H (11.5-14.5) % BUN 58.3 H (9.0-27.0) mg/dL Creatinine 1.8 H (0.6-1.5) mg/dL Est GFR (CKD-EPI)AfAm 30.5 L (60.0-200.0) Est GFR (CKD-EPI)NonAf 26.3 L (60.0-200.0) BUN/Creatinine Ratio 32.39 H (12.00-20.00) Ratio Glucose 137 H (70-110) mg/dL Microbiology - Last 24 Hours (Table) 05/20/22 06:19 Blood Culture - Preliminary Blood No Growth after 96 hours Assessment and Plan (1) Positive blood culture Status: Acute Code(s): R78.81 - BACTEREMIA SNOMED Code(s): 429059835 Plan: 1patient with a positive blood culture with gram-positive bacilli more likely skin contamination as the patient has no clinical disease to go along with it patient currently with no fever or elevated white count.blood cultures has been repeated which are so far negative, we'll continue to monitor the patient closely off vancomycin 2positive UA possibly related to the Rider catheter which is chronic for this patient, however Rider catheter has been discontinued and the patient has no urinary symptoms , no need for antibiotics on discharge Time with Patient: Less than 30
== END 2022-05-24 14:37 | disposition home health service (06) | DRG 291 ==
LOC: EC 20:24 → 6NMEDSUR 05-19 → OBSVTOIN 05-19 13:15
PROVIDERS: ADMIT Family Medicine; ATTEND Family Medicine
DX: I13.0 Hypertensive heart and chronic kidney disease with heart failure and stage 1 through stage 4 chronic kidney disease, or unspecified chronic kidney disease (principal); I50.33 Acute on chronic diastolic (congestive) heart failure; N39.0 Urinary tract infection, site not specified; T83.511A Infection and inflammatory reaction due to indwelling urethral catheter, initial encounter; Z20.822 Contact with and (suspected) exposure to COVID-19; E87.20 Acidosis, unspecified; I31.39 Other pericardial effusion (noninflammatory); I48.19 Other persistent atrial fibrillation; J96.11 Chronic respiratory failure with hypoxia; Q21.12 Patent foramen ovale; R78.81 Bacteremia; I48.11 Longstanding persistent atrial fibrillation; D50.0 Iron deficiency anemia secondary to blood loss (chronic); I95.9 Hypotension, unspecified; R42 Dizziness and giddiness; R33.9 Retention of urine, unspecified; K44.9 Diaphragmatic hernia without obstruction or gangrene; K57.90 Diverticulosis of intestine, part unspecified, without perforation or abscess without bleeding; J44.9 Chronic obstructive pulmonary disease, unspecified; M54.50 Low back pain, unspecified; D63.8 Anemia in other chronic diseases classified elsewhere; E78.5 Hyperlipidemia, unspecified; I08.1 Rheumatic disorders of both mitral and tricuspid valves; I25.10 Atherosclerotic heart disease of native coronary artery without angina pectoris; I27.29 Other secondary pulmonary hypertension; I50.82 Biventricular heart failure; M19.041 Primary osteoarthritis, right hand; M19.042 Primary osteoarthritis, left hand; N18.30 Chronic kidney disease, stage 3 unspecified; Z79.01 Long term (current) use of anticoagulants; Z79.899 Other long term (current) drug therapy; Z86.16 Personal history of COVID-19; Z86.711 Personal history of pulmonary embolism; Z87.01 Personal history of pneumonia (recurrent); Z87.11 Personal history of peptic ulcer disease; Z87.891 Personal history of nicotine dependence; Z90.710 Acquired absence of both cervix and uterus; Z90.49 Acquired absence of other specified parts of digestive tract
CPT/HCPCS: 36415; 71045; 80048; 80053; 81001; 83605; 83735; 83880; 84100; 84145; 84443; 84484; 85025; 85610; 85730; 86140; 87040; 87635; 93005; 94640; 94760; 96361; 96374; 96375; 99285

== ENCOUNTER 2022-06-29 13:48 | Inpatient (IN) | payer MEDICARE ==
[2022-06-29] MEDS ORDERED: SODIUM CHLORIDE 0.9% 500 ML 500 ML IV STA (14:03)
[2022-06-29] MEDS ORDERED: SODIUM CHLORIDE 0.9% 1,000 ML IV STA (14:03)
--- NOTE | 2022-06-29 14:13 | ED ---
General Adult HPI - General Stated complaint: Weakness, Fall Time Seen by Provider: 06/29/22 13:55 Source: patient, RN notes reviewed, old records reviewed - History of Present Illness Initial comments: This is a 77-year-old female who presents emergency department stating that 4 days ago she fell and did hit her head she is on eliquis. Patient states she also is coming in because she's been extremely weak over the last 4 days and is somewhat lightheaded occasionally she stands. Patient also states she is chronically short of breath but she feels as though her short of breath might be getting worse per patient states since 6 L of oxygen for her COPD. Patient denies any fever chills or cough. Patient denies chest pain or palpitations. Patient denies abdominal pain patient denies nausea vomiting diarrhea. Patient denies any other injury from her fall aside from hitting her head and currently she has no headache no neck pain and no numbness or weakness. - Related Data Home Medications Medication Instructions Recorded Confirmed Acetaminophen [Tylenol] 325 mg PO TID PRN 06/26/21 06/29/22 Fluticasone Propion/Salmeterol 1 puff INHALATION RT-BID 06/26/21 06/29/22 [Fluticasone-Salmeterol 250-50] Ipratropium-Albuterol Nebulize 3 ml INHALATION RT-BID PRN 06/26/21 06/29/22 [Duoneb 0.5 mg-3 mg/3 ml Soln] Albuterol Sulfate [Ventolin HFA] 1 puff INHALATION RT-Q4H PRN 02/01/22 06/29/22 Atorvastatin [Lipitor] 40 mg PO DAILY 02/01/22 06/29/22 Potassium Chloride ER [K-Dur 10] 10 meq PO BID 02/01/22 06/29/22 Metoprolol Succinate [Metoprolol 12.5 mg PO DAILY@1200 05/18/22 06/29/22 Succinate ER] Bumetanide [BUMEX] 2 mg PO BID@0900,1600 06/29/22 06/29/22 Midodrine HCl [ProAmatine] 10 mg PO TID@0900,1400,2000 06/29/22 06/29/22 Previous Rx's Medication Instructions Recorded Apixaban [Eliquis] 2.5 mg PO BID 30 Days #60 tab 02/06/22 Pantoprazole [Protonix] 40 mg PO DAILY 30 Days #30 tab 02/06/22 Sildenafil [Revatio] 20 mg PO TID #90 tab 05/12/22 Allergies Allergy/AdvReac Type Severity Reaction Status Date / Time No Known Allergies Allergy Verified 06/29/22 16:09 Review of Systems ROS Statement: Those systems with pertinent positive or pertinent negative responses have been documented in the HPI. ROS Other: All systems not noted in ROS Statement are negative. Past Medical History Past Medical History: Atrial Fibrillation, Blood Disorder, GERD/Reflux, Hyperlipidemia, Hypertension, Osteoarthritis (OA) Additional Past Medical History / Comment(s): Mitral regurgitation, mild to moderate pulmonary HTN-per past medical hx/pt unaware, SOB with exertion, small hiatal hernia, current bilateral lower leg edema, occasional low back pain, ar thritis bilateral hands. LOW HEMOGLOBIN- BLOOD TRANFUSIONS. 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 Past Anesthesia/Blood Transfusion Reactions: No Reported Reaction Additional Past Anesthesia/Blood Transfusion Reaction / Comment(s): no hx blood transfusion Past Psychological History: No Psychological Hx Reported Additional Psychological History / Comment(s): Pt resides with her family. Pt st ates she doesn't get up often. Smoking Status: Former smoker Past Alcohol Use History: None Reported Additional Past Alcohol Use History / Comment(s): Pt started smoking in 1959 and quit in 1977. She was a 2ppd smoker. Past Drug Use History: None Reported - Past Family History Mother Family Medical History: Cancer Additional Family Medical History / Comment(s): bowel Father Family Medical History: COPD Additional Family Medical History / Comment(s): emphysema Brother(s) Family Medical History: Cancer Additional Family Medical History / Comment(s): Bowel cancer. General Exam - General Exam Comments Initial Comments: GENERAL: Patient is well-developed and well-nourished. Patient is nontoxic and well- hydrated and is in mild distress. ENT: Neck is soft and supple. No significant lymphadenopathy is noted. Oropharynx is clear. Dry mucous membranes. Neck has full range of motion without eliciting any pain. EYES: The sclera were anicteric and conjunctiva were pink and moist. Extraocular movements were intact and pupils were equal round and reactive to light. Eyelids were unremarkable. PULMONARY: Unlabored respirations. Good breath sounds bilaterally. No audible rales rhonchi or wheezing was noted. CARDIOVASCULAR: There is a regular rate and rhythm without any murmurs gallops or rubs. ABDOMEN: Soft and nontender with normal bowel sounds. SKIN: Skin is clear with no lesions or rashes and otherwise unremarkable. NEUROLOGIC: Patient is alert and oriented x3. Cranial nerves II through XII are grossly in tact. Motor and sensory are also intact. Normal speech, volume and content. Symmetrical smile. MUSCULOSKELETAL: Normal extremities with adequate strength and full range of motion. LYMPHATICS: No significant lymphadenopathy is noted PSYCHIATRIC: Normal psychiatric evaluation. Course Vital Signs 06/29/22 06/29/22 13:58 16:15 Temperature 97.2 F L Pulse Rate 92 74 Respiratory 18 16 Rate Blood Pressure 96/50 99/56 O2 Sat by Pulse 92 L 99 Oximetry Medical Decision Making - Medical Decision Making I interpreted EKG. EKG shows atrial fibrillation with occasional PVC at 86 bpm QRS is 136 Q-T intervals 468 QTC is 511. Patient's EKG shows no ST segment elevation or depression. Chest x-ray was interpreted by me and showed no infiltrate or pleural effusion. CT of the brain and C-spine were interpreted by me there was no intracranial hemorrhage noted no masses noted C-spine showed no fractures. Patient's troponin was mildly elevated so I will repeat those when the patient is admitted. Patient's creatinine is also mildly elevated patient will get some fluids while she is admitted hemoglobin 6.1 unit of packed red blood cells. I also will be supplementing the patient's potassium because she has a potassium of 3.[address] Huerta he agreed to admit the patient admitted the patient wrote admitting orders. - Lab Data Result diagrams: 06/29/22 14:57 06/29/22 14:57 Lab Results 06/29/22 06/29/22 06/29/22 Range/Units 14:57 14:57 14:57 WBC 14.8 H (3.8-10.6) k/uL RBC 2.17 L (3.80-5.40) m/uL Hgb 6.8 L* D (11.4-16.0) gm/dL Hct 20.3 L (34.0-46.0) % MCV 93.5 (80.0-100.0) fL MCH 31.2 (25.0-35.0) pg MCHC 33.3 (31.0-37.0) g/dL RDW 20.4 H (11.5-15.5) % Plt Count 229 (150-450) k/uL MPV 10.8 Neutrophils % 92 % Lymphocytes % 4 % Monocytes % 3 % Eosinophils % 0 % Basophils % 0 % Neutrophils # 13.5 H (1.3-7.7) k/uL Lymphocytes # 0.6 L (1.0-4.8) k/uL Monocytes # 0.5 (0-1.0) k/uL Eosinophils # 0.0 (0-0.7) k/uL Basophils # 0.0 (0-0.2) k/uL Hypochromasia Slight Poikilocytosis Moderate Anisocytosis Moderate Macrocytosis Slight Sodium 132 L (137-145) mmol/L Potassium 3.0 L (3.5-5.1) mmol/L Chloride 87 L (98-107) mmol/L Carbon Dioxide 31 H (22-30) mmol/L Anion Gap 14 mmol/L BUN 152 H* (7-17) mg/dL Creatinine 2.57 H (0.52-1.04) mg/dL Est GFR (CKD-EPI)AfAm 20 (>60 ml/min/1.73 sqM) Est GFR (CKD-EPI)NonAf 17 (>60 ml/min/1.73 sqM) Glucose 181 H (74-99) mg/dL Calcium 9.1 (8.4-10.2) mg/dL Magnesium 2.6 H (1.6-2.3) mg/dL Total Bilirubin 2.7 H (0.2-1.3) mg/dL AST 28 (14-36) U/L ALT 22 (4-34) U/L Alkaline Phosphatase 100 (38-126) U/L Troponin I 0.077 H* (0.000-0.034) ng/mL Total Protein 6.3 (6.3-8.2) g/dL Albumin 4.1 (3.5-5.0) g/dL Urine Color Urine Appearance (Clear) Urine pH (5.0-8.0) Ur Specific [place] (1.001-1.035) Urine Protein (Negative) Urine Glucose (UA) (Negative) Urine Ketones (Negative) Urine Blood (Negative) Urine Nitrite (Negative) Urine Bilirubin (Negative) Urine Urobilinogen (<2.0) mg/dL Ur Leukocyte Esterase (Negative) 06/29/22 Range/Units 16:08 WBC (3.8-10.6) k/uL RBC (3.80-5.40) m/uL Hgb (11.4-16.0) gm/dL Hct (34.0-46.0) % MCV (80.0-100.0) fL MCH (25.0-35.0) pg MCHC (31.0-37.0) g/dL RDW (11.5-15.5) % Plt Count (150-450) k/uL MPV Neutrophils % % Lymphocytes % % Monocytes % % Eosinophils % % Basophils % % Neutrophils # (1.3-7.7) k/uL Lymphocytes # (1.0-4.8) k/uL Monocytes # (0-1.0) k/uL Eosinophils # (0-0.7) k/uL Basophils # (0-0.2) k/uL Hypochromasia Poikilocytosis Anisocytosis Macrocytosis Sodium (137-145) mmol/L Potassium (3.5-5.1) mmol/L Chloride (98-107) mmol/L Carbon Dioxide (22-30) mmol/L Anion Gap mmol/L BUN (7-17) mg/dL Creatinine (0.52-1.04) mg/dL Est GFR (CKD-EPI)AfAm (>60 ml/min/1.73 sqM) Est GFR (CKD-EPI)NonAf (>60 ml/min/1.73 sqM) Glucose (74-99) mg/dL Calcium (8.4-10.2) mg/dL Magnesium (1.6-2.3) mg/dL Total Bilirubin (0.2-1.3) mg/dL AST (14-36) U/L ALT (4-34) U/L Alkaline Phosphatase (38-126) U/L Troponin I (0.000-0.034) ng/mL Total Protein (6.3-8.2) g/dL Albumin (3.5-5.0) g/dL Urine Color Yellow Urine Appearance Clear (Clear) Urine pH 6.0 (5.0-8.0) Ur Specific [place] 1.010 (1.001-1.035) Urine Protein Negative (Negative) Urine Glucose (UA) Negative (Negative) Urine Ketones Negative (Negative) Urine Blood Negative (Negative) Urine Nitrite Negative (Negative) Urine Bilirubin Negative (Negative) Urine Urobilinogen <2.0 (<2.0) mg/dL Ur Leukocyte Esterase Negative (Negative) Critical Care Time Critical Care Time: Yes Total Critical Care Time: 35 Disposition Clinical Impression: Fall, Anemia, Renal insufficiency, Elevated troponin, Hyponatremia, Hypokalemia, Dyspnea, GI bleed Disposition: ADMITTED IP TO THIS [facility] Referrals: Nuvia Lerner MD [Primary Care Provider] - 1-2 days Time of Disposition: 16:10
--- NOTE | 2022-06-29 14:53 | XR ---
EXAMINATION TYPE: XR chest 2V DATE OF EXAM: 06/29/2022 COMPARISON: 05/18/2022 TECHNIQUE: PA and lateral views submitted. HISTORY: Weakness FINDINGS: The lungs are clear and there is no pneumothorax, pleural effusion, or focal pneumonia. There is co arsening of interstitial markings. No obvious heart failure. No pleural effusion. Atherosclerotic kendrick nge aorta. Diffuse osteopenia. Chronic rib deformities. IMPRESSION: 1. Cardiomegaly. Coarse lung markings could be pulmonary fibrosis. No obvious heart failure. No signi ficant change.
--- NOTE | 2022-06-29 14:58 | CT ---
EXAMINATION TYPE: CT brain cspine wo con CT DLP: 1237 mGycm, Automated exposure control for dose reduction was used. DATE OF EXAM: 06/29/2022 2:48 PM COMPARISON: CT brain 06/26/2021. CLINICAL INDICATION:Female, 77 years old with history of Trauma; TECHNIQUE: Brain: Multiple axial CT images of the brain were obtained without IV contrast. Cspine: Axial CT images from the skull base to the inferior aspect of T2 we obtained without intraven ous contrast. Coronal and sagittal reformatted images were also reviewed. FINDINGS: Brain: Extra-axial spaces: No abnormal extra-axial fluid collections. Ventricular system: Within normal limits Cerebral parenchyma: No acute intraparenchymal hemorrhage or mass effect. Similar hypodensities in t he bilateral frontal lobes from prior examination related to prior injury. The remaining clemente-white j unction is well differentiated. Scattered hypoattenuating areas are seen within the white matter. Cerebellum: Unremarkable. Mass effect: No evidence of midline shift. Intracranial vasculature: Atherosclerotic calcifications of the intracranial vessels. Soft tissues: Normal. Calvarium/osseous structures: No depressed skull fracture. Femoral injury to the bilateral frontal clementine juan carlos with post surgical changes identified. Paranasal sinuses and mastoid air cells: The mastoid air cells are clear. Mucous retention cyst sugge sted within the right maxillary sinus. Mild mucosal thickening of the left maxillary sinus. Remote in jury to the left medial maxillary wall and ethmoid air cells. Visualized orbits: Orbital contents are intact. Cervical spine: Fracture: None. Osseous structures: Multilevel degenerative disc disease changes with endplate spurring and disc oste ophyte complex's. Multilevel facet arthropathy. Vertebral alignment: Grade 1 anterolisthesis of C4 on C5. Spinal canal/Neural Foramina: Disc osteophyte complexes at C3-C4, C5-C6, and C6-C7 with at least mild spinal canal stenosis. Facet joint uncovertebral joint arthropathy scattered throughout the cervical spine with varying degrees of neural foraminal stenosis. Neck soft tissues: Prevertebral soft tissues are within normal limits. Other: The airway is patent. Centrilobular emphysematous changes with bronchiectasis and reticular op acities demonstrated. IMPRESSION: 1. No acute intracranial process. No significant change from prior examination. 2. Nonspecific white matter changes, likely secondary to chronic small vessel ischemic disease. 3. Remote bilateral frontal lobe injuries redemonstrated and surgical changes. 4. No evidence of cervical spine fracture. 5. Moderate multilevel degenerative disc disease. 6. Interstitial lung disease changes.
[2022-06-29 15:04] LABS: Anisocytosis Moderate; Basophils % (A) 0 %; Eosinophils % (A) 0 %; HCT 20.3 % (34.0-46.0); Hypochromasia Slight; Lymphocytes # (A) 0.6 k/uL (1.0-4.8); Lymphocytes % (A) 4 %; MCH 31.2 pg (25.0-35.0); MCHC 33.3 g/dL (31.0-37.0); MCV 93.5 fL (80.0-100.0); Macrocytosis Slight; Mean Platelet Volume 10.8; Monocytes # (A) 0.5 k/uL (0-1.0); Monocytes % (A) 3 %; Neutrophils # (A) 13.5 k/uL (1.3-7.7); Neutrophils % (A) 92 %; Platelet Count 229 k/uL (150-450); Poikilocytosis Moderate; RBC 2.17 m/uL (3.80-5.40); RDW 20.4 % (11.5-15.5); WBC 14.8 k/uL (3.8-10.6)
[2022-06-29 15:08] LABS: HGB 6.8 gm/dL (11.4-16.0)
[2022-06-29 15:31] LABS: Albumin 4.1 g/dL (3.5-5.0); Calcium 9.1 mg/dL (8.4-10.2); Magnesium 2.6 mg/dL (1.6-2.3); Total Bilirubin 2.7 mg/dL (0.2-1.3); Total Protein 6.3 g/dL (6.3-8.2)
[2022-06-29 16:18] LABS: Appearance,Urine Clear (Clear); Bilirubin,Urine Negative (Negative); Blood,Urine Negative (Negative); Color,Urine Yellow; Glucose,Urine (UA) Negative (Negative); Ketones,Urine Negative (Negative); Leukocyte Esterase,Urine Negative (Negative); Nitrite,Urine Negative (Negative); Protein,Urine Negative (Negative); Urobilinogen,Urine <2.0 mg/dL (<2.0)
[2022-06-29] MEDS ORDERED: NITROGLYCERIN SL TABS 0.4 MG TAB SUBLINGUAL PRN (16:21)
[2022-06-29] MEDS ORDERED: Potassium Replacement Protocol 1 EACH MISC MISCELLANE PRN (16:23)
[2022-06-29] MEDS ORDERED: IPRATROPIUM-ALBUTEROL 3 ML NEB INHALATION STA (16:27)
[2022-06-29 16:57] LABS: Anisocytosis Slight; Basophils % (A) 0 %; Eosinophils % (A) 0 %; Hypochromasia Slight; Lymphocytes # (A) 0.8 k/uL (1.0-4.8); Lymphocytes % (A) 6 %; MCH 32.4 pg (25.0-35.0); MCHC 34.7 g/dL (31.0-37.0); MCV 93.2 fL (80.0-100.0); Macrocytosis Slight; Mean Platelet Volume 10.4; Monocytes # (A) 0.5 k/uL (0-1.0); Monocytes % (A) 4 %; Neutrophils # (A) 12.6 k/uL (1.3-7.7); Neutrophils % (A) 89 %; Platelet Count 216 k/uL (150-450); Poikilocytosis Slight; RDW 19.7 % (11.5-15.5)
[2022-06-29 17:15] LABS: HGB 6.8 gm/dL (11.4-16.0)
[2022-06-29 17:16] LABS: HCT 19.5 % (34.0-46.0)
[2022-06-29 17:21] LABS: ABG Base Excess 9.8 mmol/L; ABG HCO3 32 mmol/L (21-25); ABG PCO2 33 mmHg (35-45); ABG PO2 103 mmHg (83-108); ABG TCO2 33 mmol/L (19-24); Allen Test Performed? Yes
[2022-06-29 17:27] LABS: ABG PH 7.59 (7.35-7.45)
[2022-06-29] MEDS: POTASSIUM CHLORIDE ER 20 MEQ TAB.ER PO SCH ×2 (17:33→20:17)
[2022-06-29] MEDS: SYMBICORT 160-4.5 MCG INHALER INHALATION SCH (20:12)
[2022-06-29] MEDS: MIDODRINE 5 MG TAB PO SCH (20:15)
[2022-06-29] MEDS ORDERED: ACETAMINOPHEN TAB 325 MG TAB PO STA (21:06)
[2022-06-29 23:54] LABS: Anisocytosis Slight; Basophils % (A) 0 %; Eosinophils % (A) 0 %; HCT 23.2 % (34.0-46.0); HGB 7.9 gm/dL (11.4-16.0); Hypochromasia Slight; Lymphocytes # (A) 0.8 k/uL (1.0-4.8); Lymphocytes % (A) 6 %; MCHC 34.3 g/dL (31.0-37.0); MCV 93.4 fL (80.0-100.0); Macrocytosis Slight; Mean Platelet Volume 9.6; Monocytes # (A) 0.8 k/uL (0-1.0); Monocytes % (A) 5 %; Neutrophils # (A) 12.3 k/uL (1.3-7.7); Neutrophils % (A) 87 %; Platelet Count 247 k/uL (150-450); Poikilocytosis Slight; RBC 2.48 m/uL (3.80-5.40); RDW 19.6 % (11.5-15.5); WBC 14.2 k/uL (3.8-10.6)
[2022-06-30 00:40] LABS: % Iron Saturation 4.78 (12.00-45.00)
[2022-06-30] MEDS: SILDENAFIL 20 MG TAB PO SCH ×4 (00:41→19:57)
[2022-06-30] MEDS: SODIUM CHLORIDE 0.9% 1,000 ML IV SCH ×2 (00:43→07:03)
[2022-06-30] MEDS ORDERED: PANTOPRAZOLE 40 MG TABLET PO SCH (07:30)
[2022-06-30] MEDS: MIDODRINE 5 MG TAB PO SCH ×3 (08:12→19:56)
[2022-06-30] MEDS: ATORVASTATIN 40 MG TAB PO SCH (08:12)
[2022-06-30] MEDS: SYMBICORT 160-4.5 MCG INHALER INHALATION SCH ×2 (08:57→22:22)
[2022-06-30] MEDS ORDERED: ASPIRIN 325 MG TAB PO SCH (09:00)
--- NOTE | 2022-06-30 10:42 | P.CRDCN ---
History of Present Illness History of present illness: HISTORY OF PRESENTING ILLNESS The patient is a 76-year-old female with a known history of mild nonobstructive coronary artery disease, long standing persistent atrial fibrillation on eliquis, severe pulmonary hypertension, severe mitral regurgitation, severe tricuspid regurgitation, PFO, dyslipidemia, history of pulmonary embolism, chronic respiratory failure, and hypertension. She follows we Dr. Goldman. We have been asked to see the patient for elevated troponin. [facility] and [facility] her [facility]. Increased generalized weakness over the past 4 days, lightheadedness. She denies any chest pain. She has chronic shortness of breath, wears 6L O2 at home. She denies any bleeding. Denies any dizziness or syncope or loss of consciousness. On admission patient found to have a hemoglobin of 6.8, potassium 3.0, stool occult blood positive. She was given 1 unit of PRBCs with improvement in her hemoglobin to 7.9. DIAGNOSTICS * EKG reveals atrial fibrillation with HR 86 * Echocardiogram 01/2022 revealed an EF of 50%, severe right ventricular dilatat ion with severe pulmonary hypertension, severe tricuspid regurgitation, right ventricular apical hypokinesis. * Telemetry tracings indicate atrial fibrillation with controlled ventricular rate * CT brain and cervical spine- no acute intracranial process, no significant change from prior, chronic small vessel ischemic disease, probable bilateral frontal lobe injuries, no evidence of cervical spine fracture, moderate left- sided level degenerative disc disease. Interstitial lung disease changes. * Chest xray cardiomegaly, no obvious heart failure, no pleural effusions. Coarse lung markings. * Laboratory reviewed, WBC 14.2, hemoglobin 7.9, platelets 247,. Sodium 132, potassium 3.0, BUN 152, serum creatinine 2.5, magnesium 2.6, proBNP 11,600 * Current home cardiac medications include Eliquis 2.5mg BID, Sildenafil, Potassium chloride, metoprolol succinate 12.5mg daily, Bumex 2mg BID, atorvastatin 40mg daily. * Cardiac catheterization History: * 11/2018 revealed minimal nonobstructive coronary artery disease, cardiac output 3.4 L, pulmonary artery systolic pressure 48 with a diastolic of 18, mean of 28 mmHg. Right ventricle systolic pressure 15 with end-diastolic of 5. 2 to 3+ mitral regurgitation REVIEW OF SYSTEMS At the time of my exam: CONSTITUTIONAL: Denies fever or chills. +lightheadedness +generalized weakness CARDIOVASCULAR: Denies chest pain, +chronic shortness of breath, Denies orthopnea, PND or palpitations. RESPIRATORY: Denies cough. GASTROINTESTINAL: Denies abdominal pain, diarrhea, constipation, nausea or vomiting. MUSCULOSKELETAL: Denies myalgias. NEUROLOGIC: Denies numbness, tingling, headacbe or weakness. ENDOCRINE: Denies fatigue, weight change, polydipsia or polyurina. GENITOURINARY: Denies burning, hematuria or urgency with micturation. HEMATOLOGIC: Denies history of anemia or bleeding. PHYSICAL EXAMINATION Blood pressure 94/53 HR 91, afebrile 95% on 4L nasal cannula CONSTITUTIONAL: No apparent distress. HEENT: Head is normocephalic. Pupils are equal, round. Sclerae anicteric. Mucous membranes of the mouth are moist. No JVD. No carotid bruit. CHEST EXAMINATION: Lungs are clear to auscultation. No chest wall tenderness is noted on palpation or with deep breathing. HEART EXAMINATION: Irregular rate and rhythm. S1, S2 heard. Systolic ejection murmur, +RV heave. ABDOMEN: Soft, nontender. Positive bowel sounds. EXTREMITIES: 2+ peripheral pulses, no lower extremity edema and no calf tenderness. NEUROLOGIC EXAMINATION: Patient is awake, alert and oriented x3. ASSESSMENT Generalized weakness, lightheadedness Anemia with stool occult blood positive Hypokalemia Severe pulmonary hypertension, previous echo 01/2022 with RVSP 123, improved to 75 / however decrease may be related to RV failure History of lung disease Severe Mitral regurgitation Severe tricuspid regurgiation Acute on chronic kidney disease likely secondary to anemia Mild troponin elevation secondary to type II event in a patient with mild CAD in the past Long standing persistent atrial fibrillation s/p previous ablation was anticoagulated in the past, on hold at this time History of hypertension Hypotension PFO Mild CAD by cardiac catheterization in 2019 PLAN Anticoagulation on hold secondary to anemia Caution with IV fluids, restart PO bumex tomorrow Continue statin, beta thomas and Revatio Further recommendations based on clinical course Nurse practitioner note has been reviewed by physician. Signing provider agrees with the documented findings, assessment, and plan of care. Past Medical History Past Medical History: Atrial Fibrillation, Blood Disorder, GERD/Reflux, Hyperlipidemia, Hypertension, Osteoarthritis (OA) Additional Past Medical History / Comment(s): Chronic hypoxic respiratory failure, severe pulmonary hypertension, chronic into fibrillation, hiatal hernia, chronic lower back pain, degenerative arthritis, hypertension, hyperlipidemia, chronic anemia, diverticular disease, previous history of GI bleed, COPD. 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 Past Anesthesia/Blood Transfusion Reactions: No Reported Reaction Additional Past Anesthesia/Blood Transfusion Reaction / Comment(s): no hx blood transfusion Past Psychological History: No Psychological Hx Reported Additional Psychological History / Comment(s): Pt resides with her family. Pt states she doesn't get up often, family helps her transfer to wheelchair for movememt Smoking Status: Former smoker Past Alcohol Use History: None Reported Additional Past Alcohol Use History / Comment(s): Pt started smoking in 7 and quit in 1977. She was a 2ppd smoker. Past Drug Use History: None Reported - Past Family History Mother Family Medical History: Cancer Additional Family Medical History / Comment(s): bowel Father Family Medical History: COPD Additional Family Medical History / Comment(s): emphysema Brother(s) Family Medical History: Cancer Additional Family Medical History / Comment(s): Bowel cancer. Medications and Allergies Home Medications Medication Instructions Recorded Confirmed Type Acetaminophen [Tylenol] 325 mg PO TID PRN 06/26/21 06/29/22 History Fluticasone Propion/Salmeterol 1 puff INHALATION RT-BID 06/26/21 06/29/22 History [Fluticasone-Salmeterol 250-50] Ipratropium-Albuterol Nebulize 3 ml INHALATION RT-BID PRN 06/26/21 06/29/22 History [Duoneb 0.5 mg-3 mg/3 ml Soln] Albuterol Sulfate [Ventolin HFA] 1 puff INHALATION RT-Q4H PRN 02/01/22 06/29/22 History Atorvastatin [Lipitor] 40 mg PO DAILY 02/01/22 06/29/22 History Potassium Chloride ER [K-Dur 10] 10 meq PO BID 02/01/22 06/29/22 History Apixaban [Eliquis] 2.5 mg PO BID 30 Days #60 tab 02/06/22 06/29/22 Rx Pantoprazole [Protonix] 40 mg PO DAILY 30 Days #30 tab 02/06/22 06/29/22 Rx Sildenafil [Revatio] 20 mg PO TID #90 tab 05/12/22 06/29/22 Rx Metoprolol Succinate [Metoprolol 12.5 mg PO DAILY@1200 05/18/22 06/29/22 History Succinate ER] Bumetanide [BUMEX] 2 mg PO BID@0900,1600 06/29/22 06/29/22 History Midodrine HCl [ProAmatine] 10 mg PO TID@0900,1400,2000 06/29/22 06/29/22 History Allergies Allergy/AdvReac Type Severity Reaction Status Date / Time No Known Allergies Allergy Verified 06/29/22 16:09 Physical Exam Vitals: Vital Signs Temp Pulse Pulse Resp BP BP Pulse Ox 06/30/22 04:00 98.2 F 91 6 L 94/53 95 06/30/22 00:00 98.0 F 92 19 97/58 98 06/29/22 22:12 98.0 F 95 21 100/56 100 06/29/22 21:25 98 18 103/63 98 06/29/22 21:15 97 18 110/92 100 06/29/22 20:18 98 18 100/56 06/29/22 19:30 88 19 76/49 100 06/29/22 19:20 93 19 101/61 97 06/29/22 19:18 98 06/29/22 19:10 98 20 91/60 100 06/29/22 19:00 86 21 102/60 97 06/29/22 18:50 91 18 88/61 100 06/29/22 18:40 91 6 L 79/50 99 06/29/22 18:30 95 15 83/47 96 06/29/22 18:20 104 H 14 90/54 97 06/29/22 18:10 86 5 L 84/47 100 06/29/22 18:09 98.1 F 06/29/22 18:03 98.5 F 06/29/22 18:00 92 17 97/52 98 06/29/22 17:51 90 9 L 88/52 99 06/29/22 17:50 98.4 F 93 20 97/52 100 06/29/22 17:10 80 20 88/50 100 06/29/22 16:15 74 16 99/56 99 06/29/22 13:58 97.2 F L 92 18 96/50 92 L Intake and Output 06/29/22 06/30/22 06/30/22 22:59 06:59 14:59 Intake Total 310 Balance 310 Intake: Blood Product 310 Rc Irr As1 Unit 310 [id number] Other 0 Rc Irr As1 Unit 0 [id number] Other: Voiding Method Bedpan # Voids 1 Weight 49.895 kg Results 06/29/22 23:25 06/29/22 14:57 Cardiac Enzymes 06/29/22 06/29/22 06/29/22 Range/Units 14:57 14:57 16:40 AST 28 (14-36) U/L Troponin I 0.077 H* 0.078 H* (0.000-0.034) ng/mL 06/29/22 Range/Units 19:19 AST (14-36) U/L Troponin I 0.082 H* (0.000-0.034) ng/mL CBC 06/29/22 06/29/22 06/29/22 Range/Units 14:57 16:40 23:25 WBC 14.8 H 14.0 H 14.2 H (3.8-10.6) k/uL RBC 2.17 L 2.10 L 2.48 L (3.80-5.40) m/uL Hgb 6.8 L* D 6.8 L* 7.9 L (11.4-16.0) gm/dL Hct 20.3 L 19.5 L* 23.2 L (34.0-46.0) % Plt Count 229 216 247 (150-450) k/uL Comprehensive Metabolic Panel 06/29/22 Range/Units 14:57 Sodium 132 L (137-145) mmol/L Potassium 3.0 L (3.5-5.1) mmol/L Chloride 87 L (98-107) mmol/L Carbon Dioxide 31 H (22-30) mmol/L BUN 152 H* (7-17) mg/dL Creatinine 2.57 H (0.52-1.04) mg/dL Glucose 181 H (74-99) mg/dL Calcium 9.1 (8.4-10.2) mg/dL AST 28 (14-36) U/L ALT 22 (4-34) U/L Alkaline Phosphatase 100 (38-126) U/L Total Protein 6.3 (6.3-8.2) g/dL Albumin 4.1 (3.5-5.0) g/dL Current Medications Generic Name Dose Route Start Last Admin Trade Name Freq PRN Reason Stop Dose Admin Acetaminophen 650 mg 06/29/22 23:01 Acetaminophen Tab 325 Mg Tab PO Q4HR PRN Fever and/ or Pain Aspirin 325 mg 06/30/22 09:00 Aspirin 325 Mg Tab PO DAILY [facility] Atorvastatin Calcium 40 mg 06/30/22 09:00 Atorvastatin 40 Mg Tab PO DAILY [facility] Budesonide/Formoterol Fumarate 2 puff 06/29/22 20:00 06/29/22 20:12 Symbicort 160-4.5 Mcg Inhaler INHALATION 2 puff RT-BID [facility] Administration Sodium Chloride 1,000 mls @ 75 mls/hr 06/29/22 16:30 06/30/22 07:03 Saline 0.9% IV Not Given .[id number] [facility] Metoprolol Succinate 12.5 mg 06/30/22 12:00 Metoprolol Succinate (Er) 25 Mg Tab.Er.24h PO DAILY@1200 [facility] Midodrine 10 mg 06/29/22 20:00 06/29/22 20:15 Midodrine 5 Mg Tab PO 10 mg TID@0900,1400,2000 [facility] Administration Miscellaneous Information 1 each 06/29/22 16:23 Potassium Replacement Protocol 1 Each Misc MISCELLANE DAILY PRN Per Protocol Protocol Nitroglycerin 0.4 mg 06/29/22 16:21 Nitroglycerin Sl Tabs 0.4 Mg Tab SUBLINGUAL Q5M PRN Chest Pain Pantoprazole Sodium 40 mg 06/30/22 07:30 06/30/22 06:40 Pantoprazole 40 Mg Tablet PO 40 mg [id number] [facility] Administration Sildenafil Citrate 20 mg 06/29/22 22:00 06/30/22 00:41 Sildenafil 20 Mg Tab PO 20 mg TID JOLENE Administration Intake and Output 06/29/22 06/30/22 06/30/22 22:59 06:59 14:59 Intake Total 310 Balance 310 Intake: Blood Product 310 Rc Irr As1 Unit 310 [id number] Other 0 Rc Irr As1 Unit 0 [id number] Other: Voiding Method Bedpan # Voids 1 Weight 49.895 kg 06/29/22 23:25 06/29/22 14:57
--- NOTE | 2022-06-30 11:58 | P.GSCN ---
History of Present Illness Consult date: 06/30/22 Reason for Consult: Anemia History of present illness: Is a 77-year-old female who was admitted to the hospital. Patient presents emergency room She originally fell and hit her head. The patient's workup found to be anemic. The patient had similar anemia previously. Patient underwent endoscopy by myself in January of this year she started have severe diverticulosis at that time. Patient is unsure if she's had any significant rectal bleeding. She has been on blood thinners. Past Medical History Past Medical History: Atrial Fibrillation, Blood Disorder, GERD/Reflux, Hyperlipidemia, Hypertension, Osteoarthritis (OA) Additional Past Medical History / Comment(s): Chronic hypoxic respiratory failure, severe pulmonary hypertension, chronic into fibrillation, hiatal hernia , chronic lower back pain, degenerative arthritis, hypertension, hyperlipidemia, chronic anemia, diverticular disease, previous history of GI bleed, COPD. 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 Past Anesthesia/Blood Transfusion Reactions: No Reported Reaction Additional Past Anesthesia/Blood Transfusion Reaction / Comm: no hx blood transfusion Past Psychological History: No Psychological Hx Reported Additional Psychological History / Comment(s): Pt resides with her family. Pt states she doesn't get up often, family helps her transfer to wheelchair for movememt Smoking Status: Former smoker Past Alcohol Use History: None Reported Additional Past Alcohol Use History / Comment(s): Pt started smoking in 1959 and quit in 1977. She was a 2ppd smoker. Past Drug Use History: None Reported - Past Family History Mother Family Medical History: Cancer Additional Family Medical History / Comment(s): bowel Father Family Medical History: COPD Additional Family Medical History / Comment(s): emphysema Brother(s) Family Medical History: Cancer Additional Family Medical History / Comment(s): Bowel cancer. Medications and Allergies Home Medications Medication Instructions Recorded Confirmed Type Acetaminophen [Tylenol] 325 mg PO TID PRN 06/26/21 06/29/22 History Fluticasone Propion/Salmeterol 1 puff INHALATION RT-BID 06/26/21 06/29/22 History [Fluticasone-Salmeterol 250-50] Ipratropium-Albuterol Nebulize 3 ml INHALATION RT-BID PRN 06/26/21 06/29/22 History [Duoneb 0.5 mg-3 mg/3 ml Soln] Albuterol Sulfate [Ventolin HFA] 1 puff INHALATION RT-Q4H PRN 02/01/22 06/29/22 History Atorvastatin [Lipitor] 40 mg PO DAILY 02/01/22 06/29/22 History Potassium Chloride ER [K-Dur 10] 10 meq PO BID 02/01/22 06/29/22 History Apixaban [Eliquis] 2.5 mg PO BID 30 Days #60 tab 02/06/22 06/29/22 Rx Pantoprazole [Protonix] 40 mg PO DAILY 30 Days #30 tab 02/06/22 06/29/22 Rx Sildenafil [Revatio] 20 mg PO TID #90 tab 05/12/22 06/29/22 Rx Metoprolol Succinate [Metoprolol 12.5 mg PO DAILY@1200 05/18/22 06/29/22 History Succinate ER] Bumetanide [BUMEX] 2 mg PO BID@0900,1600 06/29/22 06/29/22 History Midodrine HCl [ProAmatine] 10 mg PO TID@0900,1400,2000 06/29/22 06/29/22 History Allergies Allergy/AdvReac Type Severity Reaction Status Date / Time No Known Allergies Allergy Verified 06/29/22 16:09 Surgical - Exam Vital Signs Temp Pulse Resp BP Pulse Ox 97.2 F L 92 18 96/50 92 L 06/29/22 13:58 06/29/22 13:58 06/29/22 13:58 06/29/22 13:58 06/29/22 13:58 - General well developed, no distress - Eyes PERRL - ENT normal pinna - Neck no masses - Cardiovascular Rhythm: regular - Abdomen Abdomen: soft, non tender Results - Labs 06/29/22 23:25 06/29/22 14:57 Abnormal Lab Results - Last 24 Hours (Table) 11/06/29/22 06/29/22 Range/Units 14:57 14:57 14:57 WBC 14.8 H (3.8-10.6) k/uL RBC 2.17 L (3.80-5.40) m/uL Hgb 6.8 L* D (11.4-16.0) gm/dL Hct 20.3 L (34.0-46.0) % RDW 20.4 H (11.5-15.5) % Neutrophils # 13.5 H (1.3-7.7) k/uL Lymphocytes # 0.6 L (1.0-4.8) k/uL ABG pH (7.35-7.45) ABG pCO2 (35-45) mmHg ABG HCO3 (21-25) mmol/L ABG Total CO2 (19-24) mmol/L ABG O2 Saturation (94-97) % Sodium 132 L (137-145) mmol/L Potassium 3.0 L (3.5-5.1) mmol/L Chloride 87 L (98-107) mmol/L Carbon Dioxide 31 H (22-30) mmol/L BUN 152 H* (7-17) mg/dL Creatinine 2.57 H (0.52-1.04) mg/dL Glucose 181 H (74-99) mg/dL Magnesium 2.6 H (1.6-2.3) mg/dL Iron (50-170) ug/dL % Saturation (12.00-45.00) Total Bilirubin 2.7 H (0.2-1.3) mg/dL Troponin I 0.077 H* (0.000-0.034) ng/mL Stool Occult Blood (Negative) Crossmatch 06/29/22 06/29/22 06/29/22 Range/Units 15:30 16:00 16:40 WBC 14.0 H (3.8-10.6) k/uL RBC 2.10 L (3.80-5.40) m/uL Hgb 6.8 L* (11.4-16.0) gm/dL Hct 19.5 L* (34.0-46.0) % RDW 19.7 H (11.5-15.5) % Neutrophils # 12.6 H (1.3-7.7) k/uL Lymphocytes # 0.8 L (1.0-4.8) k/uL ABG pH (7.35-7.45) ABG pCO2 (35-45) mmHg ABG HCO3 (21-25) mmol/L ABG Total CO2 (19-24) mmol/L ABG O2 Saturation (94-97) % Sodium (137-145) mmol/L Potassium (3.5-5.1) mmol/L Chloride (98-107) mmol/L Carbon Dioxide (22-30) mmol/L BUN (7-17) mg/dL Creatinine (0.52-1.04) mg/dL Glucose (74-99) mg/dL Magnesium (1.6-2.3) mg/dL Iron (50-170) ug/dL % Saturation (12.00-45.00) Total Bilirubin (0.2-1.3) mg/dL Troponin I (0.000-0.034) ng/mL Stool Occult Blood Positive H (Negative) Crossmatch See Detail 06/29/22 06/29/22 06/29/22 Range/Units 16:40 17:17 19:19 WBC (3.8-10.6) k/uL RBC (3.80-5.40) m/uL Hgb (11.4-16.0) gm/dL Hct (34.0-46.0) % RDW (11.5-15.5) % Neutrophils # (1.3-7.7) k/uL Lymphocytes # (1.0-4.8) k/uL ABG pH 7.59 H* (7.35-7.45) ABG pCO2 33 L (35-45) mmHg ABG HCO3 32 H (21-25) mmol/L ABG Total CO2 33 H (19-24) mmol/L ABG O2 Saturation 100.0 H (94-97) % Sodium (137-145) mmol/L Potassium (3.5-5.1) mmol/L Chloride (98-107) mmol/L Carbon Dioxide (22-30) mmol/L BUN (7-17) mg/dL Creatinine (0.52-1.04) mg/dL Glucose (74-99) mg/dL Magnesium (1.6-2.3) mg/dL Iron (50-170) ug/dL % Saturation (12.00-45.00) Total Bilirubin (0.2-1.3) mg/dL Troponin I 0.078 H* 0.082 H* (0.000-0.034) ng/mL Stool Occult Blood (Negative) Crossmatch 06/29/22 06/29/22 Range/Units 19:19 23:25 WBC 14.2 H (3.8-10.6) k/uL RBC 2.48 L (3.80-5.40) m/uL Hgb 7.9 L (11.4-16.0) gm/dL Hct 23.2 L (34.0-46.0) % RDW 19.6 H (11.5-15.5) % Neutrophils # 12.3 H (1.3-7.7) k/uL Lymphocytes # 0.8 L (1.0-4.8) k/uL ABG pH (7.35-7.45) ABG pCO2 (35-45) mmHg ABG HCO3 (21-25) mmol/L ABG Total CO2 (19-24) mmol/L ABG O2 Saturation (94-97) % Sodium (137-145) mmol/L Potassium (3.5-5.1) mmol/L Chloride (98-107) mmol/L Carbon Dioxide (22-30) mmol/L BUN (7-17) mg/dL Creatinine (0.52-1.04) mg/dL Glucose (74-99) mg/dL Magnesium (1.6-2.3) mg/dL Iron 21 L (50-170) ug/dL % Saturation 4.78 L (12.00-45.00) Total Bilirubin (0.2-1.3) mg/dL Troponin I (0.000-0.034) ng/mL Stool Occult Blood (Negative) Crossmatch Diabetes panel 06/29/22 Range/Units 14:57 Sodium 132 L (137-145) mmol/L Potassium 3.0 L (3.5-5.1) mmol/L Chloride 87 L (98-107) mmol/L Carbon Dioxide 31 H (22-30) mmol/L BUN 152 H* (7-17) mg/dL Creatinine 2.57 H (0.52-1.04) mg/dL Glucose 181 H (74-99) mg/dL Calcium 9.1 (8.4-10.2) mg/dL AST 28 (14-36) U/L ALT 22 (4-34) U/L Alkaline Phosphatase 100 (38-126) U/L Total Protein 6.3 (6.3-8.2) g/dL Albumin 4.1 (3.5-5.0) g/dL Calcium panel 06/29/22 Range/Units 14:57 Calcium 9.1 (8.4-10.2) mg/dL Albumin 4.1 (3.5-5.0) g/dL Pituitary panel 06/29/22 Range/Units 14:57 Sodium 132 L (137-145) mmol/L Potassium 3.0 L (3.5-5.1) mmol/L Chloride 87 L (98-107) mmol/L Carbon Dioxide 31 H (22-30) mmol/L BUN 152 H* (7-17) mg/dL Creatinine 2.57 H (0.52-1.04) mg/dL Glucose 181 H (74-99) mg/dL Calcium 9.1 (8.4-10.2) mg/dL Adrenal panel 06/29/22 Range/Units 14:57 Sodium 132 L (137-145) mmol/L Potassium 3.0 L (3.5-5.1) mmol/L Chloride 87 L (98-107) mmol/L Carbon Dioxide 31 H (22-30) mmol/L BUN 152 H* (7-17) mg/dL Creatinine 2.57 H (0.52-1.04) mg/dL Glucose 181 H (74-99) mg/dL Calcium 9.1 (8.4-10.2) mg/dL Total Bilirubin 2.7 H (0.2-1.3) mg/dL AST 28 (14-36) U/L ALT 22 (4-34) U/L Alkaline Phosphatase 100 (38-126) U/L Total Protein 6.3 (6.3-8.2) g/dL Albumin 4.1 (3.5-5.0) g/dL Assessment and Plan Assessment: Severe anemia with history of severe diverticulosis. Patient most likely has been having microscopic diverticular bleeding. The patient should stop blood thinners. She may require sigmoid colectomy for severe diverticulosis. She'll be observed currently.
[2022-06-30] MEDS: METOPROLOL SUCCINATE (ER) 25 MG TAB.ER.24H PO SCH (12:28)
[2022-06-30] MEDS: BUMETANIDE 1 MG TAB PO SCH ×2 (12:28→16:50)
[2022-06-30] MEDS: SUCRALFATE 1 GM TAB PO SCH ×2 (12:29→16:50)
[2022-06-30] MEDS: SODIUM FERRIC GLUCONAT-SUCROSE 125 MG in SODIUM CHLORIDE 0.9% 100 ML IVPB SCH (12:43)
[2022-06-30 15:01] LABS: Anisocytosis Slight; HGB 7.5 gm/dL (11.4-16.0); Hypochromasia Moderate; MCH 32.7 pg (25.0-35.0); MCHC 34.2 g/dL (31.0-37.0); MCV 95.4 fL (80.0-100.0); Macrocytosis Slight; Mean Platelet Volume 10.5; Platelet Count 226 k/uL (150-450); Poikilocytosis Moderate; RBC 2.31 m/uL (3.80-5.40); RDW 19.8 % (11.5-15.5); WBC 11.4 k/uL (3.8-10.6)
[2022-06-30 16:02] LABS: Chol/HDL Ratio 3.32 Ratio; LDL Cholesterol,Calculated 41.1 mg/dL (0.0-131.0)
[2022-06-30 16:09] LABS: Calcium 8.9 mg/dL (8.4-10.2); Potassium 3.6 mmol/L (3.5-5.1)
--- NOTE | 2022-06-30 16:56 | P.PN ---
Subjective Progress Note Date: 06/30/22 This is a 77-year-old female patient came into the emergency department after she had a fall and she hit her head and this occurred approximately 4 days ago. The patient came in to the emergency as the patient felt extremely weak and lightheaded and she was having difficulty with mobility and standing up. The patient also has chronic shortness of breath and she felt that her shortness of breath was slightly worse and the patient was placed on 6 L O2 nasal cannula. The patient denied having any nausea or vomiting or abdominal pain. The patient denied having any chest pain. No headache. No altered mentation. In the emergency, the patient was found to have no fever and the patient was hemodyn amically stable. EKG showed a normal sinus rhythm without any ST segment elevation. Chest x-ray showed no acute abnormalities. CAT scan of the head and C-spine showed no this of intracranial hemorrhage and no evidence of any C-spine fracture. Nevertheless, the patient was found to have a white cell count of 14.8 with a hemoglobin of 6.8, the patient's BUN was 152 with a creatinine of 2.5 and a sodium level was at 132 and a potassium level was at 3.0. Glucose was at 181. Note that this is an acute of her chronic kidney injury as the patient has chronic stage III kidney disease. The patient's troponin was at 0.07. LFTs were normal. The UA was essentially negative. The chest x-ray showed cardiomegaly with some mild increased pulmonary vascular markings. Otherwise no significant airspace disease. Troponin was at 0.07. The patient is currently admitted to the hospital. She is on normal saline at the rate of 75 mL an hour. Her diuretics were discontinued as the patient was taking Bumex on outpatient basis. The patient also takes Eliquis on outpatient basis for history of ch ronic atrial fibrillation. Noted the patient's cardiac rhythm is nature fibrillation for now and the patient is on metoprolol 12.5 mg by mouth daily and midodrine for chronic hypotension at a dose of 10 mg by mouth 3 times a day. As far as comorbid conditions, the patient has chronic problems with anemia. She has had GI blood loss as the patient has check possible occult stool in the past and she has undergone endoscopies and found to have diverticulosis. She also has previous history of Covid 19 pneumonia back in June 2021, recovered, she has chronic atrial fibrillation, hypertension, chronic severe pulmonary hypertension with a preserved LV function and ejection fraction of 55% and the patient has severe RV enlargement and pulmonary hypertension with a PA pressure of 75 and for that reason she has limited on the right ear an outpatient basis in combination with diuretics. She has COPD, chronic anemia, chronic stage III kidney disease. She has had previous CAT scan of the chest showing emphysema. I believe, the patient follows up with another fuel operator from out of [facility], and [facility]. She has been maintained on Advair and DuoNeb nebulized treatments [id number] and she is on oxygen at 6 L/m. on06/30/2022, the patient is being seen for a follow-up. The patient got transfused with a unit of packed RBC and hemoglobin came at 7.7 and she is not showing any subjective signs of GI bleeding. Nevertheless, the patient was found to have low iron level of 21 and I think there is ongoing occult GI bleed probably related to diverticular bleed specially with her long-term and coagulation with Eliquis. Anticoagulation was held for now. At the same time, the patient creatinine has remained stable at 2.7. The patient was receiving gentle hydration. She is resting comfortably in bed. Her outpatient medications been resumed and the patient is currently on Bumex 2 mg by mouth twice a day and she was also restarted on metoprolol 12.5 mg twice a day and she is also on midodrine. Family is at the bedside. No other significant events overnight. The patient was seen by cardiology. No respiratory endoscopy at this point in time. Objective - Vital Signs Vital signs: Vital Signs Temp 98.5 F 06/30/22 16:00 Pulse 100 06/30/22 16:00 Resp 18 06/30/22 16:00 BP 97/59 06/30/22 16:00 Pulse Ox 97 06/30/22 16:00 FiO2 Intake & Output 06/29/22 06/30/22 06/30/22 18:59 06:59 18:59 Intake Total 0 310 225 Balance 0 310 225 Weight 49.895 kg 49.895 kg Intake: IV 225 Sodium Chloride 0.9% 1, 225 000 ml @ 75 mls/hr IV . [id number] [facility] Rx#:[id number] Blood Product 0 310 Rc Irr As1 Unit 0 310 [id number] Other 0 Rc Irr As1 Unit 0 [id number] Other: Voiding Method Bedpan Bedpan # Voids 1 - Exam No acute distress, oriented 3. No respiratory distress. No conversational dyspnea or use of accessory muscles. The patient remains on 6 L nasal cannula. Saturations are 99 %. Head exam was generally normal. There was no scleral icterus or corneal arcus. Mucous membranes were moist. HEENT examination is grossly unremarkable. Cardiovascular examination reveals irregular rhythm rate. Irregular S1 and S2 consistent with atrial fibrillation. There is accentuation of the second heart sounds secondary to pulmonary hypertension the patient has a grade 3-4 systolic ejection murmur heard over the left lateral sternal border. There is also some right ventricular heave. Lungs reveal bilateral rhonchi and crackles. No wheezes. Breath sounds are equal bilaterally. Breath sounds are minimally improved. Abdomen soft bowel sounds are heard. No masses or tenderness. Extremities are intact. No cyanosis clubbing or edema. Examination of the skin revealed no evidence of significant rashes, suspicious appearing nevi or other concerning lesions. Neurologically, the patient is awake and alert and the patient does not have any focal neurological deficit. Cranial nerves are essentially intact. - Labs CBC & Chem 7: 06/30/22 07:52 06/30/22 07:52 Labs: Abnormal Lab Results - Last 24 Hours (Table) 06/29/22 06/29/22 06/29/22 Range/Units 15:30 16:00 16:40 WBC 14.0 H (3.8-10.6) k/uL RBC 2.10 L (3.80-5.40) m/uL Hgb 6.8 L* (11.4-16.0) gm/dL Hct 19.5 L* (34.0-46.0) % RDW 19.7 H (11.5-15.5) % Neutrophils # 12.6 H (1.3-7.7) k/uL Lymphocytes # 0.8 L (1.0-4.8) k/uL ABG pH (7.35-7.45) ABG pCO2 (35-45) mmHg ABG HCO3 (21-25) mmol/L ABG Total CO2 (19-24) mmol/L ABG O2 Saturation (94-97) % Sodium (137-145) mmol/L Chloride (98-107) mmol/L BUN (7-17) mg/dL Creatinine (0.52-1.04) mg/dL Glucose (74-99) mg/dL Iron (50-170) ug/dL % Saturation (12.00-45.00) Troponin I (0.000-0.034) ng/mL HDL Cholesterol (40.00-60.00) mg/dL Stool Occult Blood Positive H (Negative) Crossmatch See Detail 06/29/22 06/29/22 06/29/22 Range/Units 16:40 17:17 19:19 WBC (3.8-10.6) k/uL RBC (3.80-5.40) m/uL Hgb (11.4-16.0) gm/dL Hct (34.0-46.0) % RDW (11.5-15.5) % Neutrophils # (1.3-7.7) k/uL Lymphocytes # (1.0-4.8) k/uL ABG pH 7.59 H* (7.35-7.45) ABG pCO2 33 L (35-45) mmHg ABG HCO3 32 H (21-25) mmol/L ABG Total CO2 33 H (19-24) mmol/L ABG O2 Saturation 100.0 H (94-97) % Sodium (137-145) mmol/L Chloride (98-107) mmol/L BUN (7-17) mg/dL Creatinine (0.52-1.04) mg/dL Glucose (74-99) mg/dL Iron (50-170) ug/dL % Saturation (12.00-45.00) Troponin I 0.078 H* 0.082 H* (0.000-0.034) ng/mL HDL Cholesterol (40.00-60.00) mg/dL Stool Occult Blood (Negative) Crossmatch 06/29/22 06/29/22 06/30/22 Range/Units 19:19 23:25 07:52 WBC 14.2 H (3.8-10.6) k/uL RBC 2.48 L (3.80-5.40) m/uL Hgb 7.9 L (11.4-16.0) gm/dL Hct 23.2 L (34.0-46.0) % RDW 19.6 H (11.5-15.5) % Neutrophils # 12.3 H (1.3-7.7) k/uL Lymphocytes # 0.8 L (1.0-4.8) k/uL ABG pH (7.35-7.45) ABG pCO2 (35-45) mmHg ABG HCO3 (21-25) mmol/L ABG Total CO2 (19-24) mmol/L ABG O2 Saturation (94-97) % Sodium (137-145) mmol/L Chloride (98-107) mmol/L BUN (7-17) mg/dL Creatinine (0.52-1.04) mg/dL Glucose (74-99) mg/dL Iron 21 L (50-170) ug/dL % Saturation 4.78 L (12.00-45.00) Troponin I (0.000-0.034) ng/mL HDL Cholesterol 26.80 L (40.00-60.00) mg/dL Stool Occult Blood (Negative) Crossmatch 06/30/22 06/30/22 Range/Units 07:52 07:52 WBC 11.4 H (3.8-10.6) k/uL RBC 2.31 L (3.80-5.40) m/uL Hgb 7.5 L (11.4-16.0) gm/dL Hct 22.0 L (34.0-46.0) % RDW 19.8 H (11.5-15.5) % Neutrophils # (1.3-7.7) k/uL Lymphocytes # (1.0-4.8) k/uL ABG pH (7.35-7.45) ABG pCO2 (35-45) mmHg ABG HCO3 (21-25) mmol/L ABG Total CO2 (19-24) mmol/L ABG O2 Saturation (94-97) % Sodium 132 L (137-145) mmol/L Chloride 92 L (98-107) mmol/L BUN 152 H* (7-17) mg/dL Creatinine 2.75 H (0.52-1.04) mg/dL Glucose 183 H (74-99) mg/dL Iron (50-170) ug/dL % Saturation (12.00-45.00) Troponin I (0.000-0.034) ng/mL HDL Cholesterol (40.00-60.00) mg/dL Stool Occult Blood (Negative) Crossmatch Assessment and Plan Plan: Fall, 4 days ago, no skeletal injury, no head trauma, CAT scan of the brain and C-spine were negative.the patient has developed some facial bruising. The patient is currently off anticoagulation. Generalized weakness Acute on chronic shortness of breath. The patient has severe pulmonary hypertension and the patient has limited on O2 at 6 L. She also has issues with chronic anemia and the patient has again dropped her hemoglobin down to 6.8. His has been investigated in the past and we think this is a GI loss as the patient is diverticular disease and WI component of iron deficiency anemia. Chronic hypoxic respiratory failure, as the patient is demented on 6 L of oxygen by nasal cannula since 2019. Chronic pulmonary hypertension, with severe dilatation of the RV and significant pulmonary hypertension Abnormal troponin, no acute ischemic EKG changes Acute on chronic kidney disease as the patient is known to have chronic stage III kidney disease and this could be essentially related to dehydration History of chronic atrial fibrillation. Rate is controlled and the patient is Eliquis is long-term anticoagulation hypertension COPD cute Anemia and patient had EDG/colonoscopy, the patient doesn't transfused with a unit of packed RBC and hemoglobin is at 7.5 coronavirus associated pneumonia June 2021, recovered Plan Give the patient IV iron replacement 3 doses total 110 mg Watch for any signs of GI bleeding Patient was transfused with a unit of packed RBC Hemoglobin is stable for now No need for endoscopy Keep active fibrillation on hold Gentle hydration, renal function Titrate oxygen flow to maintain a saturation above 90% Resume the metoprolol, midodrine as the patient's blood pressure is tolerating Will resume sildenafil 20 mg by mouth 3 times a day We'll continue to follow
[2022-06-30] MEDS: PANTOPRAZOLE 40 MG/10 ML VIAL IVP SCH (19:57)
--- NOTE | 2022-06-30 23:03 | P.HPIM ---
History of Present Illness H&P Date: 06/30/22 Chief Complaint: fall, weakness Selena Hinton is a 77 yo F with PMH of severe COPD on 6 LPM home O2, pulmonary hypertension, persistent AF on eliquis, CAD, diverticulosis who presented to the ED with increasing weakness and a fall at home. She complains that over the past week she has been feeling weak and shaky, lightheaded when she is up and moving. She notes that a few days ago she fell and hit her head and since then her symptoms have worsened. She denies chest pain, fever, chills, abdominal pain, nausea. She denies melena or hematochezia. On presentation BP 96/50, SpO2 92% on 6 LPM, WBC 14k, Hgb 6.8, BUN 150, Cr 2.5, trop 0.077. CXR with cardiomegaly and correlate for pulmonary fibrosis. Review of Systems All systems: negative Constitutional: Reports malaise, Reports weakness, Denies chills, Denies fever Eyes: denies blurred vision, denies pain Ears, nose, mouth and throat: Denies headache, Denies sore throat Cardiovascular: Denies chest pain, Denies shortness of breath Respiratory: Reports dyspnea, Reports home oxygen, Denies cough Gastrointestinal: Denies abdominal pain, Denies diarrhea, Denies nausea, Denies vomiting Genitourinary: Denies dysuria, Denies hematuria Musculoskeletal: Denies myalgias Integumentary: Denies pruritus, Denies rash Neurological: Denies numbness, Denies weakness Psychiatric: Denies anxiety, Denies depression Endocrine: Denies fatigue, Denies weight change Past Medical History Past Medical History: Atrial Fibrillation, Blood Disorder, GERD/Reflux, Hyperlipidemia, Hypertension, Osteoarthritis (OA) Additional Past Medical History / Comment(s): Chronic hypoxic respiratory failure, severe pulmonary hypertension, chronic into fibrillation, hiatal hernia, chronic lower back pain, degenerative arthritis, hypertension, h yperlipidemia, chronic anemia, diverticular disease, previous history of GI bleed, COPD. 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 Past Anesthesia/Blood Transfusion Reactions: No Reported Reaction Additional Past Anesthesia/Blood Transfusion Reaction / Comment(s): no hx blood transfusion Past Psychological History: No Psychological Hx Reported Additional Psychological History / Comment(s): Pt resides with her family. Pt states she doesn't get up often, family helps her transfer to wheelchair for movememt Smoking Status: Former smoker Past Alcohol Use History: None Reported Additional Past Alcohol Use History / Comment(s): Pt started smoking in 7 and quit in 1977. She was a 2ppd smoker. Past Drug Use History: None Reported - Past Family History Mother Family Medical History: Cancer Additional Family Medical History / Comment(s): bowel Father Family Medical History: COPD Additional Family Medical History / Comment(s): emphysema Brother(s) Family Medical History: Cancer Additional Family Medical History / Comment(s): Bowel cancer. Medications and Allergies Home Medications Medication Instructions Recorded Confirmed Type Acetaminophen [Tylenol] 325 mg PO TID PRN 06/26/21 06/29/22 History Fluticasone Propion/Salmeterol 1 puff INHALATION RT-BID 06/26/21 06/29/22 History [Fluticasone-Salmeterol 250-50] Ipratropium-Albuterol Nebulize 3 ml INHALATION RT-BID PRN 06/26/21 06/29/22 History [Duoneb 0.5 mg-3 mg/3 ml Soln] Albuterol Sulfate [Ventolin HFA] 1 puff INHALATION RT-Q4H PRN 02/01/22 06/29/22 History Atorvastatin [Lipitor] 40 mg PO DAILY 02/01/22 06/29/22 History Potassium Chloride ER [K-Dur 10] 10 meq PO BID 02/01/22 06/29/22 History Apixaban [Eliquis] 2.5 mg PO BID 30 Days #60 tab 02/06/22 06/29/22 Rx Pantoprazole [Protonix] 40 mg PO DAILY 30 Days #30 tab 02/06/22 06/29/22 Rx Sildenafil [Revatio] 20 mg PO TID #90 tab 05/12/22 06/29/22 Rx Metoprolol Succinate [Metoprolol 12.5 mg PO DAILY@1200 05/18/22 06/29/22 History Succinate ER] Bumetanide [BUMEX] 2 mg PO BID@0900,1600 06/29/22 06/29/22 History Midodrine HCl [ProAmatine] 10 mg PO TID@0900,1400,2000 06/29/22 06/29/22 History Allergies Allergy/AdvReac Type Severity Reaction Status Date / Time No Known Allergies Allergy Verified 06/29/22 16:09 Physical Exam Vitals: Vital Signs Temp Pulse Resp BP Pulse Ox 06/30/22 20:00 97.5 F L 94 19 97/56 93 L 06/30/22 16:00 98.5 F 100 18 97/59 97 06/30/22 14:00 84 18 06/30/22 12:00 84 18 91/51 99 06/30/22 08:08 87 6 L 06/30/22 08:07 98.1 F 87 18 92/53 97 06/30/22 04:00 98.2 F 91 6 L 94/53 95 06/30/22 00:00 98.0 F 92 19 97/58 98 Intake and Output 06/30/22 06/30/22 06/30/22 06:59 14:59 22:59 Intake Total 225 Balance 225 Intake: IV 225 Sodium Chloride 0.9% 1, 225 000 ml @ 75 mls/hr IV . [id number] [facility] Rx#:[id number] Other: Voiding Method Bedpan Bedpan Bedpan # Voids 1 1 General: well nourished, well developed, NAD. Vitals reviewed Eyes: PERRL, EOMI, conjunctiva normal HENT: normocephalic, mucus membranes moist Neck: supple, no JVD Lungs: normal respiratory effort. Wheezing present. No rales or rhonchi CV: Regular rate and rhythm, no murmur. Peripheral pulses 2+ Abdomen: soft, nondistended, no organomegaly. Mild tenderness LLQ Lymph: no cervical or axillary LAD Skin: warm and dry. Neuro: A&Ox3, normal mood and affect Results CBC & Chem 7: 06/30/22 07:52 06/30/22 07:52 Labs: Abnormal Lab Results - Last 24 Hours (Table) 06/29/22 06/29/22 06/30/22 Range/Units 19:19 23:25 07:52 WBC 14.2 H (3.8-10.6) k/uL RBC 2.48 L (3.80-5.40) m/uL Hgb 7.9 L (11.4-16.0) gm/dL Hct 23.2 L (34.0-46.0) % RDW 19.6 H (11.5-15.5) % Neutrophils # 12.3 H (1.3-7.7) k/uL Lymphocytes # 0.8 L (1.0-4.8) k/uL Sodium (137-145) mmol/L Chloride (98-107) mmol/L BUN (7-17) mg/dL Creatinine (0.52-1.04) mg/dL Glucose (74-99) mg/dL Iron 21 L (50-170) ug/dL % Saturation 4.78 L (12.00-45.00) HDL Cholesterol 26.80 L (40.00-60.00) mg/dL 06/30/22 06/30/22 Range/Units 07:52 07:52 WBC 11.4 H (3.8-10.6) k/uL RBC 2.31 L (3.80-5.40) m/uL Hgb 7.5 L (11.4-16.0) gm/dL Hct 22.0 L (34.0-46.0) % RDW 19.8 H (11.5-15.5) % Neutrophils # (1.3-7.7) k/uL Lymphocytes # (1.0-4.8) k/uL Sodium 132 L (137-145) mmol/L Chloride 92 L (98-107) mmol/L BUN 152 H* (7-17) mg/dL Creatinine 2.75 H (0.52-1.04) mg/dL Glucose 183 H (74-99) mg/dL Iron (50-170) ug/dL % Saturation (12.00-45.00) HDL Cholesterol (40.00-60.00) mg/dL Thrombosis Risk Factor Assmnt - Choose All That Apply Any of the Below Risk Factors Present?: Yes Each Factor Represents 1 point: Abnormal pulmonary function (COPD) Each Risk Factor Represents 3 Points: Age 75 years or older Thrombosis Risk Factor Assessment Total Risk Factor Score: 4 Thrombosis Risk Factor Assessment Level: Moderate Risk Assessment and Plan Plan: 1. Acute blood loss anemia secondary to GIB. Suspect diverticular bleed. Transfuse 1 U PRBC. Start IV protonix and carafate. Surgery consult. Monitor Hgb closely. Venofer infusion 2. Elevated troponin, type II NSTEMI. Secondary to anemia. Treat underlying cause. Consult cardiology for further recommendations 3. Atrial fibrillation. Hold eliquis with active bleed 3. COPD on home oxygen. Consult to pulmonology. Continue with symbicort and duonebs. Sildenafil for pHTN
[2022-07-01 05:24] LABS: Anisocytosis Moderate; Basophils # (A) 0.1 k/uL (0-0.2); Basophils % (A) 1 %; Eosinophils # (A) 0.1 k/uL (0-0.7); Eosinophils % (A) 1 %; HCT 22.2 % (34.0-46.0); HGB 7.4 gm/dL (11.4-16.0); Hypochromasia Slight; Lymphocytes # (A) 0.9 k/uL (1.0-4.8); Lymphocytes % (A) 8 %; MCH 30.7 pg (25.0-35.0); MCHC 33.3 g/dL (31.0-37.0); MCV 92.1 fL (80.0-100.0); Macrocytosis Slight; Mean Platelet Volume 9.8; Monocytes # (A) 0.6 k/uL (0-1.0); Monocytes % (A) 5 %; Neutrophils # (A) 9.5 k/uL (1.3-7.7); Neutrophils % (A) 84 %; Platelet Count 238 k/uL (150-450); Poikilocytosis Moderate; RBC 2.41 m/uL (3.80-5.40); RDW 20.5 % (11.5-15.5); WBC 11.4 k/uL (3.8-10.6)
[2022-07-01] MEDS: SUCRALFATE 1 GM TAB PO SCH ×3 (06:22→16:40)
[2022-07-01] MEDS: PANTOPRAZOLE 40 MG/10 ML VIAL IVP SCH ×2 (08:27→20:41)
[2022-07-01] MEDS: MIDODRINE 5 MG TAB PO SCH ×3 (08:27→20:41)
[2022-07-01] MEDS: SILDENAFIL 20 MG TAB PO SCH ×3 (08:27→20:41)
[2022-07-01] MEDS: BUMETANIDE 1 MG TAB PO SCH (08:27)
[2022-07-01] MEDS: ATORVASTATIN 40 MG TAB PO SCH (08:27)
[2022-07-01] MEDS: SODIUM FERRIC GLUCONAT-SUCROSE 125 MG in SODIUM CHLORIDE 0.9% 100 ML IVPB SCH (08:58)
[2022-07-01] MEDS: SYMBICORT 160-4.5 MCG INHALER INHALATION SCH ×2 (09:19→21:06)
--- NOTE | 2022-07-01 11:18 | P.PN ---
Subjective HISTORY OF PRESENTING ILLNESS The patient is a 76-year-old female with a known history of mild nonobstructive coronary artery disease, long standing persistent atrial fibrillation on eliquis, severe pulmonary hypertension, severe mitral regurgitation, severe tricuspid regurgitation, PFO, dyslipidemia, history of pulmonary embolism, chronic respiratory failure, and hypertension. She follows we Dr. Goldman. We have been asked to see the patient for elevated troponin. She presents to the hospital with complaints of fall and hit her head. Increased generalized weakness over the past 4 days, lightheadedness. She denies any chest pain. She has chronic shortness of breath, wears 6L O2 at home. She denies any bleeding. Denies any dizziness or syncope or loss of consciousness. On admission patient found to have a hemoglobin of 6.8, potassium 3.0, stool occult blood positive. She was given 1 unit of PRBCs with improvement in her hemoglobin to 7.9. DIAGNOSTICS * EKG reveals atrial fibrillation with HR 86 * Echocardiogram 01/2022 revealed an EF of 50%, severe right ventricular dilatation with severe pulmonary hypertension, severe tricuspid regurgitation, right ventricular apical hypokinesis. * Telemetry tracings indicate atrial fibrillation with controlled ventricular rate * CT brain and cervical spine- no acute intracranial process, no significant change from prior, chronic small vessel ischemic disease, probable bilateral frontal lobe injuries, no evidence of cervical spine fracture, moderate left- sided level degenerative disc disease. Interstitial lung disease changes. * Chest xray cardiomegaly, no obvious heart failure, no pleural effusions. Coarse lung markings. * Laboratory reviewed, WBC 14.2, hemoglobin 7.9, platelets 247,. Sodium 132, potassium 3.0, BUN 152, serum creatinine 2.5, magnesium 2.6, proBNP 11,600 * Current home cardiac medications include Eliquis 2.5mg BID, Sildenafil, Potassium chloride, metoprolol succinate 12.5mg daily, Bumex 2mg BID, atorvastatin 40mg daily. * Cardiac catheterization History: * 11/2018 revealed minimal nonobstructive coronary artery disease, cardiac output 3.4 L, pulmonary artery systolic pressure 48 with a diastolic of 18, mean of 28 mmHg. Right ventricle systolic pressure 15 with end-diastolic of 5. 2 to 3+ mitral regurgitation 07/01 Patient still with significant SOB. No hematochezia or melena. No chest pain or pressure. She did feel somewhat better after blood transfusion yesterday. Hemoglobin this morning 7.4. BUN and creatinine not back yet today however previously extremely elevated 154 with a creatinine mildly 2.5, 2.7. PHYSICAL EXAMINATION Vitals reviewed CONSTITUTIONAL: No apparent distress. HEENT: Head is normocephalic. Pupils are equal, round. Sclerae anicteric. Mucous membranes of the mouth are moist. No JVD. No carotid bruit. CHEST EXAMINATION: Lungs are clear to auscultation. No chest wall tenderness is noted on palpation or with deep breathing. HEART EXAMINATION: Irregular rate and rhythm. S1, S2 heard. Systolic ejection murmur, +RV heave. ABDOMEN: Soft, nontender. Positive bowel sounds. EXTREMITIES: 2+ peripheral pulses, no lower extremity edema and no calf tenderness. NEUROLOGIC EXAMINATION: Patient is awake, alert and oriented x3. ASSESSMENT Generalized weakness, lightheadedness Anemia with stool occult blood positive Hypokalemia Severe pulmonary hypertension, previous echo 01/2022 with RVSP 123, improved to 75 05/05 however decrease may be related to RV failure History of lung disease Severe Mitral regurgitation Severe tricuspid regurgiation Acute on chronic kidney disease likely secondary to anemia Mild troponin elevation secondary to type II event in a patient with mild CAD in the past Long standing persistent atrial fibrillation s/p previous ablation was anticoagulated in the past, on hold at this time History of hypertension Hypotension PFO Mild CAD by cardiac catheterization in 2019 PLAN Anticoagulation on hold secondary to anemia Caution with IV fluids, and await Cr today. Possibly restart if Cr improving Continue statin, beta thomas and Revatio Further recommendations based on clinical course Objective - Vital Signs Vital signs: Vital Signs Temp 97.8 F 07/01/22 08:26 Pulse 83 07/01/22 08:26 Resp 19 07/01/22 08:26 BP 87/53 07/01/22 08:26 Pulse Ox 92 L 07/01/22 09:19 FiO2 Intake & Output 06/30/22 07/01/22 07/01/22 18:59 06:59 18:59 Intake Total 225 Output Total 450 Balance 225 -450 Intake: IV 225 Sodium Chloride 0.9% 1, 225 000 ml @ 75 mls/hr IV . [id number] [facility] Rx#:[id number] Output: Urine 450 Other: Voiding Method Bedpan Bedpan # Voids 2 1 - Labs CBC & Chem 7: 07/01/22 04:22 06/30/22 07:52 Labs: Abnormal Lab Results - Last 24 Hours (Table) 06/30/22 06/30/22 06/30/22 Range/Units 07:52 07:52 07:52 WBC 11.4 H (3.8-10.6) k/uL RBC 2.31 L (3.80-5.40) m/uL Hgb 7.5 L (11.4-16.0) gm/dL Hct 22.0 L (34.0-46.0) % RDW 19.8 H (11.5-15.5) % Neutrophils # (1.3-7.7) k/uL Lymphocytes # (1.0-4.8) k/uL Sodium 132 L (137-145) mmol/L Chloride 92 L (98-107) mmol/L BUN 152 H* (7-17) mg/dL Creatinine 2.75 H (0.52-1.04) mg/dL Glucose 183 H (74-99) mg/dL HDL Cholesterol 26.80 L (40.00-60.00) mg/dL 07/01/22 Range/Units 04:22 WBC 11.4 H (3.8-10.6) k/uL RBC 2.41 L (3.80-5.40) m/uL Hgb 7.4 L (11.4-16.0) gm/dL Hct 22.2 L (34.0-46.0) % RDW 20.5 H (11.5-15.5) % Neutrophils # 9.5 H (1.3-7.7) k/uL Lymphocytes # 0.9 L (1.0-4.8) k/uL Sodium (137-145) mmol/L Chloride (98-107) mmol/L BUN (7-17) mg/dL Creatinine (0.52-1.04) mg/dL Glucose (74-99) mg/dL HDL Cholesterol (40.00-60.00) mg/dL
--- NOTE | 2022-07-01 11:36 | P.PN ---
Subjective Progress Note Date: 07/01/22 Selena Hinton is a 77 yo F with PMH of severe COPD on 6 LPM home O2, pulmonary hypertension, persistent AF on eliquis, CAD, diverticulosis who presented to the ED with increasing weakness and a fall at home. She complains that over the past week she has been feeling weak and shaky, lightheaded when she is up and moving. She notes that a few days ago she fell and hit her head and since then her symptoms have worsened. She denies chest pain, fever, chills, abdominal pain, nausea. She denies melena or hematochezia. On presentation BP 96/50, SpO2 92% on 6 LPM, WBC 14k, Hgb 6.8, BUN 150, Cr 2.5, trop 0.077. CXR with cardiomegaly and correlate for pulmonary fibrosis. 07/01/22. Patient seen and examined. Still states that she does not feel well. Denies any blood in the stools. Still has abdominal pain. Currently on 6 L of oxygen. Hemoglobin this morning is 7.4 REVIEW OF SYSTEMS: CONSTITUTIONAL: No fever, no malaise,. CARDIOVASCULAR: No chest pain, no palpitations, no syncope. PULMONARY: Complaining of shortness of breath, no cough, GASTROINTESTINAL: No diarrhea, no nausea, no vomiting. NEUROLOGICAL: No headaches, no weakness, PHYSICAL EXAMINATION: GENERAL: The patient is alert and oriented x3, not in any acute distress. Well developed, well nourished. HEENT: Pupils are round and equally reacting to light. EOMI. No scleral icterus. No conjunctival pallor. Normocephalic, atraumatic. No pharyngeal erythema. No thyromegaly. CARDIOVASCULAR: S1 and S2 present. No murmurs, rubs, or gallops. PULMONARY: Coarse breath some bilaterally. ABDOMEN: Soft, nontender, nondistended, normoactive bowel sounds. No palpable organomegaly. MUSCULOSKELETAL: No joint swelling or deformity. EXTREMITIES: No cyanosis, clubbing, or pedal edema. NEUROLOGICAL: Gross neurological examination did not reveal any focal deficits. SKIN: No rashes. Assessment and plan -Acute blood loss anemia -GIB. Suspect diverticular bleed. Elevated troponin, type II NSTEMI. Secondary to anemia. Acute blood loss anemia Atrial fibrillation. COPD on home oxygen. Severe pulmonary hypertension History of lung disease Severe Mitral regurgitation Severe tricuspid regurgiation Acute on chronic kidney disease likely secondary to anemia Plan; Monitor electrolytes. Monitor renal functions Monitor CBC. Hold Eliquis for now. Continue Bumex Continue Toprol Continue IV iron replacement Continue sildenafil 20 mg 3 times daily for pulmonary hypertension Follow-up on cardiology recommendations Follow-up on pulmonary recommendations Consult nephrology Objective - Vital Signs Vital signs: Vital Signs Temp 97.8 F 07/01/22 08:26 Pulse 83 07/01/22 08:26 Resp 19 07/01/22 08:26 BP 87/53 07/01/22 08:26 Pulse Ox 92 L 07/01/22 09:19 FiO2 Intake & Output 06/30/22 07/01/22 07/01/22 18:59 06:59 18:59 Intake Total 225 Output Total 450 Balance 225 -450 Intake: IV 225 Sodium Chloride 0.9% 1, 225 000 ml @ 75 mls/hr IV . [id number] [facility] Rx#:[id number] Output: Urine 450 Other: Voiding Method Bedpan Bedpan # Voids 2 1 - Labs CBC & Chem 7: 07/01/22 04:22 06/30/22 07:52 Labs: Abnormal Lab Results - Last 24 Hours (Table) 06/30/22 06/30/22 06/30/22 Range/Units 07:52 07:52 07:52 WBC 11.4 H (3.8-10.6) k/uL RBC 2.31 L (3.80-5.40) m/uL Hgb 7.5 L (11.4-16.0) gm/dL Hct 22.0 L (34.0-46.0) % RDW 19.8 H (11.5-15.5) % Neutrophils # (1.3-7.7) k/uL Lymphocytes # (1.0-4.8) k/uL Sodium 132 L (137-145) mmol/L Chloride 92 L (98-107) mmol/L BUN 152 H* (7-17) mg/dL Creatinine 2.75 H (0.52-1.04) mg/dL Glucose 183 H (74-99) mg/dL HDL Cholesterol 26.80 L (40.00-60.00) mg/dL 07/01/22 Range/Units 04:22 WBC 11.4 H (3.8-10.6) k/uL RBC 2.41 L (3.80-5.40) m/uL Hgb 7.4 L (11.4-16.0) gm/dL Hct 22.2 L (34.0-46.0) % RDW 20.5 H (11.5-15.5) % Neutrophils # 9.5 H (1.3-7.7) k/uL Lymphocytes # 0.9 L (1.0-4.8) k/uL Sodium (137-145) mmol/L Chloride (98-107) mmol/L BUN (7-17) mg/dL Creatinine (0.52-1.04) mg/dL Glucose (74-99) mg/dL HDL Cholesterol (40.00-60.00) mg/dL
[2022-07-01] MEDS ORDERED: SODIUM CHLORIDE 0.9% 500 ML 500 ML IV ONE (11:39)
--- NOTE | 2022-07-01 11:39 | P.PN ---
Subjective Progress Note Date: 07/01/22 Principal diagnosis: GI bleeding Patient without new complaints. Tolerating diet. No bowel movement per patient. Latest hemoglobin 7.4 from 7.5. Objective - Vital Signs Vital signs: Vital Signs Temp 97.8 F 07/01/22 08:26 Pulse 83 07/01/22 08:26 Resp 19 07/01/22 08:26 BP 87/53 07/01/22 08:26 Pulse Ox 92 L 07/01/22 09:19 FiO2 Intake & Output 06/30/22 07/01/22 07/01/22 18:59 06:59 18:59 Intake Total 225 Output Total 450 Balance 225 -450 Intake: IV 225 Sodium Chloride 0.9% 1, 225 000 ml @ 75 mls/hr IV . [id number] [facility] Rx#:[id number] Output: Urine 450 Other: Voiding Method Bedpan Bedpan # Voids 2 1 - Exam Abdomen: Soft, nontender, nondistended - Labs CBC & Chem 7: 07/01/22 04:22 06/30/22 07:52 Labs: Abnormal Lab Results - Last 24 Hours (Table) 06/30/22 06/30/22 06/30/22 Range/Units 07:52 07:52 07:52 WBC 11.4 H (3.8-10.6) k/uL RBC 2.31 L (3.80-5.40) m/uL Hgb 7.5 L (11.4-16.0) gm/dL Hct 22.0 L (34.0-46.0) % RDW 19.8 H (11.5-15.5) % Neutrophils # (1.3-7.7) k/uL Lymphocytes # (1.0-4.8) k/uL Sodium 132 L (137-145) mmol/L Chloride 92 L (98-107) mmol/L BUN 152 H* (7-17) mg/dL Creatinine 2.75 H (0.52-1.04) mg/dL Glucose 183 H (74-99) mg/dL HDL Cholesterol 26.80 L (40.00-60.00) mg/dL 07/01/22 Range/Units 04:22 WBC 11.4 H (3.8-10.6) k/uL RBC 2.41 L (3.80-5.40) m/uL Hgb 7.4 L (11.4-16.0) gm/dL Hct 22.2 L (34.0-46.0) % RDW 20.5 H (11.5-15.5) % Neutrophils # 9.5 H (1.3-7.7) k/uL Lymphocytes # 0.9 L (1.0-4.8) k/uL Sodium (137-145) mmol/L Chloride (98-107) mmol/L BUN (7-17) mg/dL Creatinine (0.52-1.04) mg/dL Glucose (74-99) mg/dL HDL Cholesterol (40.00-60.00) mg/dL Assessment and Plan (1) GI bleed Narrative/Plan: 77-year-old female with GI bleed. Patient without further bleeding recently. Monitor hemoglobin. Continue to hold anticoagulation. Continue diet. Current Visit: Yes Status: Acute Code(s): K92.2 - GASTROINTESTINAL HEMORRHAGE, UNSPECIFIED SNOMED Code(s): 60058642
[2022-07-01] MEDS: METOPROLOL SUCCINATE (ER) 25 MG TAB.ER.24H PO SCH (11:41)
[2022-07-01 14:08] LABS: Albumin 3.7 g/dL (3.5-5.0); Calcium 8.7 mg/dL (8.4-10.2); Phosphorus 3.4 mg/dL (2.5-4.5); Potassium 2.9 mmol/L (3.5-5.1)
[2022-07-01] MEDS: POTASSIUM CHLORIDE ER 20 MEQ TAB.ER PO SCH ×3 (15:08→17:51)
--- NOTE | 2022-07-01 15:21 | P.PN ---
Subjective Progress Note Date: 07/01/22 This is a 77-year-old female patient came into the emergency department after she had a fall and she hit her head and this occurred approximately 4 days ago. The patient came in to the emergency as the patient felt extremely weak and lightheaded and she was having difficulty with mobility and standing up. The patient also has chronic shortness of breath and she felt that her shortness of breath was slightly worse and the patient was placed on 6 L O2 nasal cannula. The patient denied having any nausea or vomiting or abdominal pain. The patient denied having any chest pain. No headache. No altered mentation. In the emergency, the patient was found to have no fever and the patient was hemodyn amically stable. EKG showed a normal sinus rhythm without any ST segment elevation. Chest x-ray showed no acute abnormalities. CAT scan of the head and C-spine showed no this of intracranial hemorrhage and no evidence of any C-spine fracture. Nevertheless, the patient was found to have a white cell count of 14.8 with a hemoglobin of 6.8, the patient's BUN was 152 with a creatinine of 2.5 and a sodium level was at 132 and a potassium level was at 3.0. Glucose was at 181. Note that this is an acute of her chronic kidney injury as the patient has chronic stage III kidney disease. The patient's troponin was at 0.07. LFTs were normal. The UA was essentially negative. The chest x-ray showed cardiomegaly with some mild increased pulmonary vascular markings. Otherwise no significant airspace disease. Troponin was at 0.07. The patient is currently admitted to the hospital. She is on normal saline at the rate of 75 mL an hour. Her diuretics were discontinued as the patient was taking Bumex on outpatient basis. The patient also takes Eliquis on outpatient basis for history of ch ronic atrial fibrillation. Noted the patient's cardiac rhythm is nature fibrillation for now and the patient is on metoprolol 12.5 mg by mouth daily and midodrine for chronic hypotension at a dose of 10 mg by mouth 3 times a day. As far as comorbid conditions, the patient has chronic problems with anemia. She has had GI blood loss as the patient has check possible occult stool in the past and she has undergone endoscopies and found to have diverticulosis. She also has previous history of Covid 19 pneumonia back in June 2021, recovered, she has chronic atrial fibrillation, hypertension, chronic severe pulmonary hypertension with a preserved LV function and ejection fraction of 55% and the patient has severe RV enlargement and pulmonary hypertension with a PA pressure of 75 and for that reason she has limited on the right ear an outpatient basis in combination with diuretics. She has COPD, chronic anemia, chronic stage III kidney disease. She has had previous CAT scan of the chest showing emphysema. 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 She has been maintained on Advair and DuoNeb nebulized treatments [id number] and she is on oxygen at 6 L/m. on06/30/2022, the patient is being seen for a follow-up. The patient got transfused with a unit of packed RBC and hemoglobin came at 7.7 and she is not showing any subjective signs of GI bleeding. Nevertheless, the patient was found to have low iron level of 21 and I think there is ongoing occult GI bleed probably related to diverticular bleed specially with her long-term and coagulation with Eliquis. Anticoagulation was held for now. At the same time, the patient creatinine has remained stable at 2.7. The patient was receiving gentle hydration. She is resting comfortably in bed. Her outpatient medications been resumed and the patient is currently on Bumex 2 mg by mouth twice a day and she was also restarted on metoprolol 12.5 mg twice a day and she is also on midodrine. Family is at the bedside. No other significant events overnight. The patient was seen by cardiology. No respiratory endoscopy at this point in time. On 07/01/2022, the patient is being seen for a follow-up. The patient is feeling dizziness especially when she stands up and moves around. She is noted to be also borderline hypotensive. I suggested to hold the diuretics today. I also noted that the patient acute on top of any chronic renal failure. The BUN is at 149 with a creatinine of 2.42 which is slightly improved compared to yesterday. Potassium level is low at this to be replaced at 2.5. Sodium is at 133. Noted the patient was started back on her Viagra and diuretics which is in the form of Bumex. She is currently off anticoagulation. No evidence of an acute GI bleed. She is receiving IV iron. Hemoglobin from yesterday was stable at 7.4. Occult stool is positive for blood Objective - Vital Signs Vital signs: Vital Signs Temp 97.9 F 07/01/22 15:12 Pulse 84 07/01/22 15:12 Resp 20 07/01/22 15:12 BP 99/59 07/01/22 15:12 Pulse Ox 93 L 07/01/22 15:12 FiO2 Intake & Output 06/30/22 07/01/22 07/01/22 18:59 06:59 18:59 Intake Total 225 Output Total 450 Balance 225 -450 Intake: IV 225 Sodium Chloride 0.9% 1, 225 000 ml @ 75 mls/hr IV . [id number] [facility] Rx#:[id number] Output: Urine 450 Other: Voiding Method Bedpan Bedpan # Voids 2 1 - Exam No acute distress, oriented 3. No respiratory distress. No conversational dyspnea or use of accessory muscles. The patient remains on 6 L nasal cannula. Saturations are 99 %. Head exam was generally normal. There was no scleral icterus or corneal arcus. Mucous membranes were moist. HEENT examination is grossly unremarkable. Cardiovascular examination reveals irregular rhythm rate. Irregular S1 and S2 consistent with atrial fibrillation. There is accentuation of the second heart sounds secondary to pulmonary hypertension the patient has a grade 3-4 systolic ejection murmur heard over the left lateral sternal border. There is also some right ventricular heave. Lungs reveal bilateral rhonchi and crackles. No wheezes. Breath sounds are equal bilaterally. Breath sounds are minimally improved. Abdomen soft bowel sounds are heard. No masses or tenderness. Extremities are intact. No cyanosis clubbing or edema. Examination of the skin revealed no evidence of significant rashes, suspicious appearing nevi or other concerning lesions. Neurologically, the patient is awake and alert and the patient does not have any focal neurological deficit. Cranial nerves are essentially intact. - Labs CBC & Chem 7: 07/01/22 04:22 07/01/22 13:17 Labs: Abnormal Lab Results - Last 24 Hours (Table) 06/30/22 06/30/22 07/01/22 Range/Units 07:52 07:52 04:22 WBC 11.4 H (3.8-10.6) k/uL RBC 2.41 L (3.80-5.40) m/uL Hgb 7.4 L (11.4-16.0) gm/dL Hct 22.2 L (34.0-46.0) % RDW 20.5 H (11.5-15.5) % Neutrophils # 9.5 H (1.3-7.7) k/uL Lymphocytes # 0.9 L (1.0-4.8) k/uL Sodium 132 L (137-145) mmol/L Potassium (3.5-5.1) mmol/L Chloride 92 L (98-107) mmol/L BUN 152 H* (7-17) mg/dL Creatinine 2.75 H (0.52-1.04) mg/dL Glucose 183 H (74-99) mg/dL HDL Cholesterol 26.80 L (40.00-60.00) mg/dL 07/01/22 Range/Units 13:17 WBC (3.8-10.6) k/uL RBC (3.80-5.40) m/uL Hgb (11.4-16.0) gm/dL Hct (34.0-46.0) % RDW (11.5-15.5) % Neutrophils # (1.3-7.7) k/uL Lymphocytes # (1.0-4.8) k/uL Sodium 133 L (137-145) mmol/L Potassium 2.9 L (3.5-5.1) mmol/L Chloride 91 L (98-107) mmol/L BUN 149 H* (7-17) mg/dL Creatinine 2.42 H (0.52-1.04) mg/dL Glucose 162 H (74-99) mg/dL HDL Cholesterol (40.00-60.00) mg/dL Assessment and Plan Plan: Fall, 4 days ago, no skeletal injury, no head trauma, CAT scan of the brain and C-spine were negative.the patient has developed some facial bruising. The patient is currently off anticoagulation. Generalized weakness, multifactorial, obviously anemia is also contributing to his generalized weakness and shortness of breath. Acute on chronic shortness of breath. The patient has severe pulmonary hypertension and the patient has limited on O2 at 6 L. She also has issues with chronic anemia and the patient has again dropped her hemoglobin down to 6.8. His has been investigated in the past and we think this is a GI loss as the patient is diverticular disease and [place] component of iron deficiency anemia. Chronic hypoxic respiratory failure, as the patient is demented on 6 L of oxygen by nasal cannula since 2019. Chronic pulmonary hypertension, with severe dilatation of the RV and significant pulmonary hypertension Abnormal troponin, no acute ischemic EKG changes Acute on chronic kidney disease as the patient is known to have chronic stage III kidney disease and this could be essentially related to dehydration, and the patient's BUN and creatinine is slightly improved compared to yesterday. History of chronic atrial fibrillation. Rate is controlled and the patient is Eliquis is long-term anticoagulation hypertension COPD cute Anemia and patient had EDG/colonoscopy, the patient doesn't transfused with a unit of packed RBC and hemoglobin is stable coronavirus associated pneumonia June 2021, recovered Plan Given a 500 mL of bolus of normal saline Hold Bumex for today Repeat electrolytes for tomorrow Complaints IV iron replacement 3 doses total 110 mg Watch for any signs of GI bleeding Patient was transfused with a unit of packed RBC Hemoglobin is stable for now No need for endoscopy Anticoagulation will be placed on hold Gentle hydration, renal function Titrate oxygen flow to maintain a saturation above 90% Replace potassium We'll continue to follow
--- NOTE | 2022-07-01 17:29 | XR ---
EXAMINATION TYPE: XR foot complete LT DATE OF EXAM: 07/01/2022 COMPARISON: NONE HISTORY: Foot pain. Fall. TECHNIQUE: 3 views FINDINGS: There is deformity of the second third and fourth metatarsal heads related to nondisplaced fractures. There is also a nondisplaced transverse fracture across the base of the proximal phalanx o f the fourth toe. There is osteopenia. There is plantar calcaneal spurring. There is soft tissue swel ling over the forefoot. IMPRESSION: Multiple fractures. Soft tissue swelling.
--- NOTE | 2022-07-01 18:18 | XR ---
EXAMINATION TYPE: XR KUB portable DATE OF EXAM: 07/01/2022 COMPARISON: NONE HISTORY: Abdominal pain TECHNIQUE: Single view FINDINGS: There is no sign of intestinal obstruction or pneumoperitoneum. Fecal pattern is normal. No evidence of a mass. No pathologic calcification over the kidneys. IMPRESSION: Nonacute abdomen.
[2022-07-01] MEDS: ACETAMINOPHEN TAB 325 MG TAB PO PRN (20:41)
[2022-07-02] MEDS: SUCRALFATE 1 GM TAB PO SCH ×3 (03:10→16:38)
--- NOTE | 2022-07-02 09:05 | US ---
EXAMINATION TYPE: US abdomen complete DATE OF EXAM: 07/02/2022 COMPARISON: US renal, CT CLINICAL HISTORY: pain abd, near gallbladder, sharp shooting. ABD pain TECHNIQUE: Multiple sonographic images of the abdomen are obtained. FINDINGS: EXAM MEASUREMENTS: Liver Length: 21.0 cm Gallbladder Wall: 0.5 cm CBD: 0.3 cm Spleen: 10.8 cm Right Kidney: 9.2 x 3.6 x 3.8 cm Left Kidney: 9.7 x 3.4 x 4.0 cm Pancreas: wnl, tail obscured by overlying bowel gas Liver: Enlarged Gallbladder: Sludge, possible small gravel stones, wall thickened with possible pericholecystic flui d Evidence for sonographic Alieca's sign: Yes CBD: wnl Spleen: wnl Right Kidney: No evidence of hydro, slightly small in size Left Kidney: No evidence of hydro, slightly small in size Upper IVC: wnl Abd Aorta: wnl Incidental finding, small amount of ascites IMPRESSION: Biliary sludge with pericholecystic fluid with gallbladder wall thickening and positive sonographic M urphy sign concerning for acute cholecystitis.
[2022-07-02] MEDS: SODIUM FERRIC GLUCONAT-SUCROSE 125 MG in SODIUM CHLORIDE 0.9% 100 ML IVPB SCH (09:07)
[2022-07-02] MEDS: PANTOPRAZOLE 40 MG/10 ML VIAL IVP SCH ×2 (09:07→21:09)
[2022-07-02] MEDS: ATORVASTATIN 40 MG TAB PO SCH (09:07)
[2022-07-02] MEDS: MIDODRINE 5 MG TAB PO SCH ×3 (09:07→21:09)
[2022-07-02] MEDS: SILDENAFIL 20 MG TAB PO SCH ×3 (09:08→21:09)
[2022-07-02] MEDS: ACETAMINOPHEN TAB 325 MG TAB PO PRN ×2 (09:11→21:09)
[2022-07-02 09:20] LABS: Anisocytosis Moderate; Basophils % (A) 0 %; Eosinophils # (A) 0.1 k/uL (0-0.7); Eosinophils % (A) 1 %; HCT 23.2 % (34.0-46.0); HGB 7.6 gm/dL (11.4-16.0); Hypochromasia Moderate; Lymphocytes # (A) 1.1 k/uL (1.0-4.8); Lymphocytes % (A) 11 %; MCH 30.6 pg (25.0-35.0); MCHC 32.7 g/dL (31.0-37.0); MCV 93.5 fL (80.0-100.0); Macrocytosis Slight; Mean Platelet Volume 10.1; Monocytes # (A) 0.5 k/uL (0-1.0); Monocytes % (A) 4 %; Neutrophils # (A) 8.6 k/uL (1.3-7.7); Neutrophils % (A) 82 %; Platelet Count 243 k/uL (150-450); Poikilocytosis Moderate; RBC 2.48 m/uL (3.80-5.40); RDW 20.5 % (11.5-15.5); WBC 10.5 k/uL (3.8-10.6)
[2022-07-02 09:28] LABS: Albumin 3.8 g/dL (3.5-5.0); Calcium 8.9 mg/dL (8.4-10.2); Potassium 3.2 mmol/L (3.5-5.1); Total Bilirubin 2.4 mg/dL (0.2-1.3); Total Protein 5.9 g/dL (6.3-8.2)
[2022-07-02] MEDS: SYMBICORT 160-4.5 MCG INHALER INHALATION SCH ×2 (09:32→19:56)
--- NOTE | 2022-07-02 10:48 | P.CNOR ---
History of Present Illness - [facility] Consult date: 07/02/22 Requesting physician: Talha Franco Consult reason: other (multiple fractures in left foot) History of present illness: Patient is a 77-year-old female with past medical history of COPD atrial fibrillation, CAD, do meticulous is 50% to the emergency department a few days ago and Jacob Davis chief complaint of increasing weakness and fall at home. Orthopedics has been counsulted for multiple fractures in the left foot. Patient was seen at bedside this morning with daughter present. Patient says last Tuesday she did have a fall at home. Patient's daughter says normally the patient does use a wheelchair but does ambulate sometimes using a walker. Patient got up in the living room slipped on the carpet and hit her head and passed out. Patient says she began to have pain in the left foot following the fall. Patient's daughter says they did not get an x-ray until yesterday and that was when they noticed there was fractures in the foot. Patient says the pain is mostly localized the foot, however, there is some radiation up the left ankle. Patient says she is unable to bear any weight on the left lower extremity due to pain in the foot. Patient is on eliquis due to A-fib. Patient denies any other locations of pain. Patient currently rates pain as 8/10 in her foot. Patient denies chest pain, fever, nausea, vomiting, change in vision, loss of bowel/bladder control. Past Medical History Past Medical History: Atrial Fibrillation, Blood Disorder, GERD/Reflux, Hyperlipidemia, Hypertension, Osteoarthritis (OA) Additional Past Medical History / Comment(s): Chronic hypoxic respiratory failure, severe pulmonary hypertension, chronic into fibrillation, hiatal hernia, chronic lower back pain, degenerative arthritis, hypertension, hyperlipidemia, chronic anemia, diverticular disease, previous history of GI bleed, COPD. 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 Past Anesthesia/Blood Transfusion Reactions: No Reported Reaction Additional Past Anesthesia/Blood Transfusion Reaction / Comm: no hx blood transfusion Past Psychological History: No Psychological Hx Reported Additional Psychological History / Comment(s): Pt resides with her family. Pt states she doesn't get up often, family helps her transfer to wheelchair for movememt Smoking Status: Former smoker Past Alcohol Use History: None Reported Additional Past Alcohol Use History / Comment(s): Pt started smoking in 7 and quit in 1977. She was a 2ppd smoker. Past Drug Use History: None Reported - Past Family History Mother Family Medical History: Cancer Additional Family Medical History / Comment(s): bowel Father Family Medical History: COPD Additional Family Medical History / Comment(s): emphysema Brother(s) Family Medical History: Cancer Additional Family Medical History / Comment(s): Bowel cancer. Medications and Allergies Home Medications Medication Instructions Recorded Confirmed Type Acetaminophen [Tylenol] 325 mg PO TID PRN 06/26/21 06/29/22 History Fluticasone Propion/Salmeterol 1 puff INHALATION RT-BID 06/26/21 06/29/22 History [Fluticasone-Salmeterol 250-50] Ipratropium-Albuterol Nebulize 3 ml INHALATION RT-BID PRN 06/26/21 06/29/22 History [Duoneb 0.5 mg-3 mg/3 ml Soln] Albuterol Sulfate [Ventolin HFA] 1 puff INHALATION RT-Q4H PRN 02/01/22 06/29/22 History Atorvastatin [Lipitor] 40 mg PO DAILY 02/01/22 06/29/22 History Potassium Chloride ER [K-Dur 10] 10 meq PO BID 02/01/22 06/29/22 History Apixaban [Eliquis] 2.5 mg PO BID 30 Days #60 tab 02/06/22 06/29/22 Rx Pantoprazole [Protonix] 40 mg PO DAILY 30 Days #30 tab 02/06/22 06/29/22 Rx Sildenafil [Revatio] 20 mg PO TID #90 tab 05/12/22 06/29/22 Rx Metoprolol Succinate [Metoprolol 12.5 mg PO DAILY@1200 05/18/22 06/29/22 History Succinate ER] Bumetanide [BUMEX] 2 mg PO BID@0900,1600 06/29/22 06/29/22 History Midodrine HCl [ProAmatine] 10 mg PO TID@0900,1400,2000 06/29/22 06/29/22 History Allergies Allergy/AdvReac Type Severity Reaction Status Date / Time No Known Allergies Allergy Verified 06/29/22 16:09 Physical Examination Inspection: Negative for any open fractures, significant ecchymosis/ulcers. There is evident bruising and soft tissue swelling in the midfoot on the left lower extremity. Sensation: Sensation is equal, symmetric, bilaterally intact throughout the upper and lower extremities. Palpation: Severe tenderness to palpation diffusely throughout the left foot in the midfoot and over digits 2 through 4. Patient has TTP with light and deep palpaion of left foot. Nontender to palpation throughout rest of exam Range of motion: Patient does have full range of motion bilateral upper extremities and right lower extremity on exam. Patient does have full range of motion left hip in flexion/extension and knee flexion/extension. Patient does have limited range of motion in left ankle dorsi/plantar flexion and digits 2 through 4 and left foot due to pain Motor: 5/5 in all major motor groups in bilateral upper extremities and right lower extremity on exam. 5/5 in resisted left hip flexion/extension in left knee flexion extension. 3/5 in resisted left ankle dorsi/plantar flexion. Special tests: Negative clonus bilaterally. Negative Amber bilaterally. Negative Homans bilaterally Neurovascular status: Capillary refill under 3 seconds in digits of right lower extremities. Radial pulse intact, bilaterally. Dorsalis pedis pulses palpable however weak. Results - Labs Labs: Abnormal Lab Results - Last 24 Hours (Table) 06/29/22 07/01/22 07/02/22 Range/Units 15:30 13:17 07:47 RBC 2.48 L (3.80-5.40) m/uL Hgb 7.6 L (11.4-16.0) gm/dL Hct 23.2 L (34.0-46.0) % RDW 20.5 H (11.5-15.5) % Neutrophils # 8.6 H (1.3-7.7) k/uL Sodium 133 L (137-145) mmol/L Potassium 2.9 L (3.5-5.1) mmol/L Chloride 91 L (98-107) mmol/L BUN 149 H* (7-17) mg/dL Creatinine 2.42 H (0.52-1.04) mg/dL Glucose 162 H (74-99) mg/dL Total Bilirubin (0.2-1.3) mg/dL Total Protein (6.3-8.2) g/dL Crossmatch See Detail 07/02/22 Range/Units 07:47 RBC (3.80-5.40) m/uL Hgb (11.4-16.0) gm/dL Hct (34.0-46.0) % RDW (11.5-15.5) % Neutrophils # (1.3-7.7) k/uL Sodium 136 L (137-145) mmol/L Potassium 3.2 L (3.5-5.1) mmol/L Chloride 96 L (98-107) mmol/L BUN 137 H* (7-17) mg/dL Creatinine 2.53 H (0.52-1.04) mg/dL Glucose 133 H (74-99) mg/dL Total Bilirubin 2.4 H (0.2-1.3) mg/dL Total Protein 5.9 L (6.3-8.2) g/dL Crossmatch H & H 06/29/22 06/29/22 06/29/22 Range/Units 14:57 16:40 23:25 Hgb 6.8 L* D 6.8 L* 7.9 L (11.4-16.0) gm/dL Hct 20.3 L 19.5 L* 23.2 L (34.0-46.0) % 06/30/22 07/01/22 07/02/22 Range/Units 07:52 04:22 07:47 Hgb 7.5 L 7.4 L 7.6 L (11.4-16.0) gm/dL Hct 22.0 L 22.2 L 23.2 L (34.0-46.0) % Result Diagrams: 07/02/22 07:47 07/02/22 07:47 - Diagnostic results Ankle/Foot x-ray: report reviewed, image reviewed (X-ray of the left foot does demonstrate metatarsal head fractures of digits 2 through 4 which are nondisplaced. There is also evident soft tissue swelling. There is a no ndisplaced proximal phalanx fracture of digit 4 on the left foot) Assessment and Plan Assessment: 1. Left foot metatarsal head fractures, nondisplaced digits 2 through 4; proximal phalanx fracture fourth digit left foot, nondisplaced 2. Multiple medical comorbidities Plan: 1. Left foot metatarsal head fractures, nondisplaced digits 2 through 4; proximal phalanx fracture fourth digit left foot, nondisplaced - patient stable at bedside this morning. X-rays of the left foot have been reviewed and do demonstrate metatarsal head fractures that are nondisplaced and digits 2 through 4 on the left foot as well as proximal phalanx fracture in the fourth digit of the left foot. At this time we do not recommend any emergent/urgent orthopedic surgical intervention. A Cam Walker boot was ordered for treatment of this injury. Once patient does receive the Cam Walker boot patient is able to bear weight only through the heel of the left foot. Do not bear weight thru toes of the left foot. Patient is to be weightbearing as tolerated on the right lower extremity and use walker as needed. Pain medication as needed. We'll continue to follow patient during her stay in hospital. We do recommend patient to follow-up in the office for further evaluation. 2. Appreciate medical management 3. Pain management - Tylenol 4. DVT prophylaxis - mechanical 5. GI prophylaxis - Protonix 6. PT/OT - nonweightbearing left lower extremity. Once Cam Walker boot is received, patient may bear weight on the left foot only through the heel. Weightbearing as tolerated right lower extremity and use walker as needed 7. Encourage incentive spirometer use 8. Appreciate consult Time with Patient: Less than 30
[2022-07-02] MEDS ORDERED: POTASSIUM CHLORIDE ER 20 MEQ TAB.ER PO STA (11:04)
--- NOTE | 2022-07-02 11:05 | P.NPCON ---
History of Present Illness - Reason for Consult acute renal failure, chronic renal failure - History of Present Illness Reason for consultation: Acute kidney injury on chronic kidney disease History of present illness: Patient is a 77-year-old female seen in renal consultation for acute kidney injury on chronic kidney disease. Patient has chronic kidney disease stage IIIB with baseline creatinine near 2 secondary to nephrosclerosis and cardiorenal syndrome. Renal function this admission has been fairly stable. Creatinine 2.53 today. Patient presented to the hospital after she sustained a fall and hit her head. Patient was complaining of dizziness with positional changes prior to admission. She was noted to be anemic with hemoglobin of 6.8 and did receive blood transfusion this admission. Hemoglobin 7.6 this morning. She denies any melena or hematochezia. No hematuria. Blood pressure is stable but on the lower side. She is currently on 6 L nasal cannula. Abdominal ultrasound showed normal-sized kidneys without any evidence of hydronephrosis. There was concern for acute cholecystitis. She is being followed by surgery. Patient states she has been voiding. She has history of diastolic CHF. Mild to moderate mitral regurgitation, severe tricuspid regurgitation and pulmonary hypertension. Denies history of diabetes. Denies history of coronary artery disease. Vital signs are stable. General: Awake. No acute distress. HEENT: Head exam is unremarkable. On nasal cannula. LUNGS: Breath sounds decreased. HEART: Rate and Rhythm are regular. ABDOMEN: Soft, mild distention. Nontender. EXTREMITITES: No edema. Past Medical History Past Medical History: Atrial Fibrillation, Blood Disorder, GERD/Reflux, Hyperlipidemia, Hypertension, Osteoarthritis (OA) Additional Past Medical History / Comment(s): Chronic hypoxic respiratory failure, severe pulmonary hypertension, chronic into fibrillation, hiatal hernia, chronic lower back pain, degenerative arthritis, hypertension, hyperlipidemia, chronic anemia, diverticular disease, previous history of GI bleed, COPD. 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 Past Anesthesia/Blood Transfusion Reactions: No Reported Reaction Additional Past Anesthesia/Blood Transfusion Reaction / Comment(s): no hx blood transfusion Past Psychological History: No Psychological Hx Reported Additional Psychological History / Comment(s): Pt resides with her family. Pt states she doesn't get up often, family helps her transfer to wheelchair for movememt Smoking Status: Former smoker Past Alcohol Use History: None Reported Additional Past Alcohol Use History / Comment(s): Pt started smoking in 1959 and quit in 1977. She was a 2ppd smoker. Past Drug Use History: None Reported - Past Family History Mother Family Medical History: Cancer Additional Family Medical History / Comment(s): bowel Father Family Medical History: COPD Additional Family Medical History / Comment(s): emphysema Brother(s) Family Medical History: Cancer Additional Family Medical History / Comment(s): Bowel cancer. Medications and Allergies Home Medications Medication Instructions Recorded Confirmed Type Acetaminophen [Tylenol] 325 mg PO TID PRN 06/26/21 06/29/22 History Fluticasone Propion/Salmeterol 1 puff INHALATION RT-BID 06/26/21 06/29/22 Histo ry [Fluticasone-Salmeterol 250-50] Ipratropium-Albuterol Nebulize 3 ml INHALATION RT-BID PRN 06/26/21 06/29/22 History [Duoneb 0.5 mg-3 mg/3 ml Soln] Albuterol Sulfate [Ventolin HFA] 1 puff INHALATION RT-Q4H PRN 02/01/22 06/29/22 History Atorvastatin [Lipitor] 40 mg PO DAILY 02/01/22 06/29/22 History Potassium Chloride ER [K-Dur 10] 10 meq PO BID 02/01/22 06/29/22 History Apixaban [Eliquis] 2.5 mg PO BID 30 Days #60 tab 02/06/22 06/29/22 Rx Pantoprazole [Protonix] 40 mg PO DAILY 30 Days #30 tab 02/06/22 06/29/22 Rx Sildenafil [Revatio] 20 mg PO TID #90 tab 05/12/22 06/29/22 Rx Metoprolol Succinate [Metoprolol 12.5 mg PO DAILY@1200 05/18/22 06/29/22 History Succinate ER] Bumetanide [BUMEX] 2 mg PO BID@0900,1600 06/29/22 06/29/22 History Midodrine HCl [ProAmatine] 10 mg PO TID@0900,1400,199906/29/22 06/29/22 History Allergies Allergy/AdvReac Type Severity Reaction Status Date / Time No Known Allergies Allergy Verified 06/29/22 16:09 Physical Exam Vitals: Vital Signs Temp Pulse Resp BP Pulse Ox 07/02/22 08:44 97.5 F L 97 18 103/59 97 07/02/22 04:00 97.9 F 100 18 100/59 93 L 07/02/22 02:00 85 20 07/01/22 23:46 98.0 F 85 20 96/54 95 07/01/22 20:00 98.0 F 88 22 102/65 97 07/01/22 15:12 97.9 F 84 20 99/59 93 L 07/01/22 12:00 97.6 F 88 17 100/59 98 Intake and Output 07/01/22 07/02/22 07/02/22 22:59 06:59 14:59 Intake Total 320 Output Total 1050 350 400 Balance -730 -350 -400 Intake: Oral 320 Output: Urine 1050 350 400 Other: Voiding Method Bedpan Bedpan # Bowel Movements 1 Results - Lab Results Most recent lab results ABG pH 7.59 (7.35-7.45) H* 06/29/22 17:17 ABG pCO2 33 mmHg (35-45) L 06/29/22 17:17 ABG pO2 103 mmHg (83-108) 06/29/22 17:17 ABG HCO3 32 mmol/L (21-25) H 06/29/22 17:17 ABG O2 Saturation 100.0 % (94-97) H 06/29/22 17:17 Calcium 8.9 mg/dL (8.4-10.2) 07/02/22 07:47 Phosphorus 3.4 mg/dL (2.5-4.5) 07/01/22 13:17 Magnesium 2.6 mg/dL (1.6-2.3) H 06/29/22 14:57 07/02/22 07:47 07/02/22 07:47 Assessment and Plan Plan: Assessment: 1. Acute kidney injury secondary to ATN secondary to anemia and cardiorenal syndrome. Renal function fairly stable this admission. Creatinine 2.53 today. No hydronephrosis noted on kidney ultrasound. 2. Chronic kidney disease stage IIIB with baseline creatinine near 2 secondary to nephrosclerosis and cardiorenal syndrome. 3. GI bleed status post blood transfusion. Surgery following. Receiving IV iron. 4. Hypokalemia from poor intake and diuresis. 5. Chronic diastolic CHF with mild to moderate mitral regurgitation, severe tricuspid regurgitation and pulmonary hypertension. Plan: Replace potassium. Monitor volume status closely. Will likely need to resume diuretics in the next 24-48 hours. Add Aranesp. Avoid nephrotoxins. Continue to monitor renal function and urine output. Thank you for the consultation. I will continue to follow the patient with you during her hospital stay.
--- NOTE | 2022-07-02 11:16 | P.PN ---
Subjective Progress Note Date: 07/02/22 Principal diagnosis: GI bleeding Patient without further bleeding. Apparently she has had chronic complaints of intermittent spastic like lower abdominal pain. An ultrasound of the abdomen was ordered. The ultrasound does show some gallbladder sludge and possible inflammation. Some free fluid was also present. A sonographic Alicea sign was reportedly positive. Patient however poised to the lower abdomen as the source of her discomfort. Says that the pain only last for a few minutes at a time. Patient with some degree of chronic liver dysfunction with chronically elevated bilirubin. Hepatomegaly seen on most recent CAT scan from October of this year. Hemoglobin stable. Objective - Vital Signs Vital signs: Vital Signs Temp 97.5 F L 07/02/22 08:44 Pulse 97 07/02/22 08:44 Resp 18 07/02/22 08:44 BP 103/59 07/02/22 08:44 Pulse Ox 97 07/02/22 08:44 FiO2 Intake & Output 07/01/22 07/02/22 07/02/22 18:59 06:59 18:59 Intake Total 640 120 Output Total 1300 550 400 Balance -660 -430 -400 Intake: Oral 640 120 Output: Urine 1300 550 400 Other: Voiding Method Bedpan # Bowel Movements 1 - Exam Abdomen: Soft, nondistended, mild lower abdominal tenderness - Labs CBC & Chem 7: 07/02/22 07:47 07/02/22 07:47 Labs: Abnormal Lab Results - Last 24 Hours (Table) 06/29/22 07/01/22 07/02/22 Range/Units 15:30 13:17 07:47 RBC 2.48 L (3.80-5.40) m/uL Hgb 7.6 L (11.4-16.0) gm/dL Hct 23.2 L (34.0-46.0) % RDW 20.5 H (11.5-15.5) % Neutrophils # 8.6 H (1.3-7.7) k/uL Sodium 133 L (137-145) mmol/L Potassium 2.9 L (3.5-5.1) mmol/L Chloride 91 L (98-107) mmol/L BUN 149 H* (7-17) mg/dL Creatinine 2.42 H (0.52-1.04) mg/dL Glucose 162 H (74-99) mg/dL Total Bilirubin (0.2-1.3) mg/dL Total Protein (6.3-8.2) g/dL Crossmatch See Detail 07/02/22 Range/Units 07:47 RBC (3.80-5.40) m/uL Hgb (11.4-16.0) gm/dL Hct (34.0-46.0) % RDW (11.5-15.5) % Neutrophils # (1.3-7.7) k/uL Sodium 136 L (137-145) mmol/L Potassium 3.2 L (3.5-5.1) mmol/L Chloride 96 L (98-107) mmol/L BUN 137 H* (7-17) mg/dL Creatinine 2.53 H (0.52-1.04) mg/dL Glucose 133 H (74-99) mg/dL Total Bilirubin 2.4 H (0.2-1.3) mg/dL Total Protein 5.9 L (6.3-8.2) g/dL Crossmatch Assessment and Plan (1) GI bleed Narrative/Plan: 77-year-old female with anemia and suspected diverticular GI bleed. Continue to hold anticoagulation. Etiology for the patient's lower abdominal pain unlikely to be related to the patient's ultrasound findings of cholecystitis. Abnormalities seen on ultrasound could be related to the patient's chronic liver dysfunction and low volume ascites. Will follow. Current Visit: Yes Status: Acute Code(s): K92.2 - GASTROINTESTINAL HEMORRHAGE, UNSPECIFIED SNOMED Code(s): 05939815
[2022-07-02] MEDS: METOPROLOL SUCCINATE (ER) 25 MG TAB.ER.24H PO SCH (12:27)
--- NOTE | 2022-07-02 13:06 | P.PN ---
Subjective HISTORY OF PRESENTING ILLNESS The patient is a 76-year-old female with a known history of mild nonobstructive coronary artery disease, long standing persistent atrial fibrillation on eliquis, severe pulmonary hypertension, severe mitral regurgitation, severe tricuspid regurgitation, PFO, dyslipidemia, history of pulmonary embolism, chronic respiratory failure, and hypertension. She follows we Dr. Goldman. We have been asked to see the patient for elevated troponin. She presents to the hospital with complaints of fall and hit her head. Increased generalized weakness over the past 4 days, lightheadedness. She denies any chest pain. She has chronic shortness of breath, wears 6L O2 at home. She denies any bleeding. Denies any dizziness or syncope or loss of consciousness. On admission patient found to have a hemoglobin of 6.8, potassium 3.0, stool occult blood positive. She was given 1 unit of PRBCs with improvement in her hemoglobin to 7.9. DIAGNOSTICS * EKG reveals atrial fibrillation with HR 86 * Echocardiogram 01/2022 revealed an EF of 50%, severe right ventricular dilatation with severe pulmonary hypertension, severe tricuspid regurgitation, right ventricular apical hypokinesis. * Telemetry tracings indicate atrial fibrillation with controlled ventricular rate * CT brain and cervical spine- no acute intracranial process, no significant change from prior, chronic small vessel ischemic disease, probable bilateral frontal lobe injuries, no evidence of cervical spine fracture, moderate left- sided level degenerative disc disease. Interstitial lung disease changes. * Chest xray cardiomegaly, no obvious heart failure, no pleural effusions. Coarse lung markings. * Laboratory reviewed, WBC 14.2, hemoglobin 7.9, platelets 247,. Sodium 132, potassium 3.0, BUN 152, serum creatinine 2.5, magnesium 2.6, proBNP 11,600 * Current home cardiac medications include Eliquis 2.5mg BID, Sildenafil, Potassium chloride, metoprolol succinate 12.5mg daily, Bumex 2mg BID, atorvastatin 40mg daily. * Cardiac catheterization History: * 11/2018 revealed minimal nonobstructive coronary artery disease, cardiac output 3.4 L, pulmonary artery systolic pressure 48 with a diastolic of 18, mean of 28 mmHg. Right ventricle systolic pressure 15 with end-diastolic of 5. 2 to 3+ mitral regurgitation 07/01 Patient still with significant SOB. No hematochezia or melena. No chest pain or pressure. She did feel somewhat better after blood transfusion yesterday. Hemoglobin this morning 7.4. BUN and creatinine not back yet today however previously extremely elevated 154 with a creatinine mildly 2.5, 2.7. 07/02 Patient seen and examined. Patient denies any abdominal pain. She is still having significant dyspnea. Still has significantly elevated BUN and creatinine and lasix have been on hold. Abdominal ultrasound shows biliary sludge with pericholecystic fluid with gallbladder wall thickening and positive Alicea's sign concerning for cholecystitis. PHYSICAL EXAMINATION Vitals reviewed CONSTITUTIONAL: No apparent distress. HEENT: Head is normocephalic. Pupils are equal, round. Sclerae anicteric. Mucous membranes of the mouth are moist. No JVD. No carotid bruit. CHEST EXAMINATION: Lungs are clear to auscultation. No chest wall tenderness is noted on palpation or with deep breathing. HEART EXAMINATION: Irregular rate and rhythm. S1, S2 heard. Systolic ejection murmur, +RV heave. ABDOMEN: Soft, nontender. Positive bowel sounds. EXTREMITIES: 2+ peripheral pulses, no lower extremity edema and no calf tenderness. NEUROLOGIC EXAMINATION: Patient is awake, alert and oriented x3. ASSESSMENT Generalized weakness, lightheadedness Anemia with stool occult blood positive Hypokalemia Severe pulmonary hypertension, previous echo 01/2022 with RVSP 123, improved to 75 05/05 however decrease may be related to RV failure History of lung disease Severe Mitral regurgitation Severe tricuspid regurgiation Acute on chronic kidney disease likely secondary to anemia Mild troponin elevation secondary to type II event in a patient with mild CAD in the past Long standing persistent atrial fibrillation s/p previous ablation was a nticoagulated in the past, on hold at this time History of hypertension Hypotension PFO Mild CAD by cardiac catheterization in 2019 PLAN Anticoagulation on hold secondary to anemia Monitor Cr and likely restart Lasix in next 24-48 hrs US findings concerning for acute cholecystitis. Patient would be high risk for any surgery and would consider perc drain if indicated. Continue statin, beta thomas and Revatio Further recommendations based on clinical course Objective - Vital Signs Vital signs: Vital Signs Temp 97.6 F 07/02/22 12:23 Pulse 81 07/02/22 12:23 Resp 16 07/02/22 12:23 BP 94/54 07/02/22 12:23 Pulse Ox 99 07/02/22 12:23 FiO2 Intake & Output 07/01/22 07/02/2222 18:59 06:59 18:59 Intake Total 640 120 Output Total 1300 550 400 Balance -589 -936 -229 Intake: Oral 640 120 Output: Urine 1300 550 400 Other: Voiding Method Bedpan # Bowel Movements 1 1 - Labs CBC & Chem 7: 07/02/22 07:47 07/02/22 07:47 Labs: Abnormal Lab Results - Last 24 Hours (Table) 06/29/22 07/01/22 07/02/22 Range/Units 15:30 13:17 07:47 RBC 2.48 L (3.80-5.40) m/uL Hgb 7.6 L (11.4-16.0) gm/dL Hct 23.2 L (34.0-46.0) % RDW 20.5 H (11.5-15.5) % Neutrophils # 8.6 H (1.3-7.7) k/uL Sodium 133 L (137-145) mmol/L Potassium 2.9 L (3.5-5.1) mmol/L Chloride 91 L (98-107) mmol/L BUN 149 H* (7-17) mg/dL Creatinine 2.42 H (0.52-1.04) mg/dL Glucose 162 H (74-99) mg/dL Total Bilirubin (0.2-1.3) mg/dL Total Protein (6.3-8.2) g/dL Crossmatch See Detail 07/02/22 Range/Units 07:47 RBC (3.80-5.40) m/uL Hgb (11.4-16.0) gm/dL Hct (34.0-46.0) % RDW (11.5-15.5) % Neutrophils # (1.3-7.7) k/uL Sodium 136 L (137-145) mmol/L Potassium 3.2 L (3.5-5.1) mmol/L Chloride 96 L (98-107) mmol/L BUN 137 H* (7-17) mg/dL Creatinine 2.53 H (0.52-1.04) mg/dL Glucose 133 H (74-99) mg/dL Total Bilirubin 2.4 H (0.2-1.3) mg/dL Total Protein 5.9 L (6.3-8.2) g/dL Crossmatch
[2022-07-02] MEDS: DARBEPOETIN ALFA 40 MCG/0.4 ML SYRINGE SQ SCH (13:42)
--- NOTE | 2022-07-02 14:21 | P.PN ---
Subjective Progress Note Date: 07/02/22 Selena Hinton is a 77 yo F with PMH of severe COPD on 6 LPM home O2, pulmonary hypertension, persistent AF on eliquis, CAD, diverticulosis who presented to the ED with increasing weakness and a fall at home. She complains that over the past week she has been feeling weak and shaky, lightheaded when she is up and moving. She notes that a few days ago she fell and hit her head and since then her symptoms have worsened. She denies chest pain, fever, chills, abdominal pain, nausea. She denies melena or hematochezia. On presentation BP 96/50, SpO2 92% on 6 LPM, WBC 14k, Hgb 6.8, BUN 150, Cr 2.5, trop 0.077. CXR with cardiomegaly and correlate for pulmonary fibrosis. 07/01/22. Patient seen and examined. Still states that she does not feel well. Denies any blood in the stools. Still has abdominal pain. Currently on 6 L of oxygen. Hemoglobin this morning is 7.4 07/02/22. Patient seen and examined. Continues to have abdominal pain. Ultrasound of the abdominal and showed gallbladder sludge and possible inflammation. Complaining of left foot pain REVIEW OF SYSTEMS: CONSTITUTIONAL: No fever, no malaise,. CARDIOVASCULAR: No chest pain, no palpitations, no syncope. PULMONARY: Complaining of shortness of breath, no cough, GASTROINTESTINAL: No diarrhea, no nausea, no vomiting. NEUROLOGICAL: No headaches, no weakness, PHYSICAL EXAMINATION: GENERAL: The patient is alert and oriented x3, not in any acute distress. Well developed, well nourished. HEENT: Pupils are round and equally reacting to light. EOMI. No scleral icterus. No conjunctival pallor. Normocephalic, atraumatic. No pharyngeal erythema. No thyromegaly. CARDIOVASCULAR: S1 and S2 present. No murmurs, rubs, or gallops. PULMONARY: Coarse breath some bilaterally. ABDOMEN: Tenderness in right upper quadrant. No palpable organomegaly. MUSCULOSKELETAL: No joint swelling or deformity. EXTREMITIES: No cyanosis, clubbing, or pedal edema. NEUROLOGICAL: Gross neurological examination did not reveal any focal deficits. SKIN: No rashes. Assessment and plan -Acute blood loss anemia -GIB. Suspect diverticular bleed. Elevated troponin, type II NSTEMI. Secondary to anemia. Acute blood loss anemia Atrial fibrillation. COPD on home oxygen. Severe pulmonary hypertension History of lung disease Severe Mitral regurgitation Severe tricuspid regurgiation Acute on chronic kidney disease likely secondary to anemia Plan; Monitor electrolytes. Monitor renal functions Monitor CBC. Hold Eliquis for now. Continue Bumex Continue Toprol Continue IV iron replacement Continue sildenafil 20 mg 3 times daily for pulmonary hypertension US findings concerning for acute cholecystitis. Patient would be high risk for any surgery and would consider perc drain if indicated. Gen. surgery is on board Follow-up on cardiology recommendations Follow-up on pulmonary recommendations Follow-up on nephrology recommendations Objective - Vital Signs Vital signs: Vital Signs Temp 97.6 F 07/02/22 12:23 Pulse 89 07/02/22 13:41 Resp 16 07/02/22 12:23 BP 106/50 07/02/22 13:41 Pulse Ox 99 07/02/22 12:23 FiO2 Intake & Output 07/01/22 07/02/22 07/02/22 18:59 06:59 18:59 Intake Total 640 120 Output Total 1300 550 600 Balance -660 -430 -600 Intake: Oral 640 120 Output: Urine 1300 550 600 Other: Voiding Method Bedpan # Voids 1 # Bowel Movements 1 1 - Labs CBC & Chem 7: 07/02/22 07:47 07/02/22 07:47 Labs: Abnormal Lab Results - Last 24 Hours (Table) 06/29/22 07/02/22 07/02/22 Range/Units 15:30 07:47 07:47 RBC 2.48 L (3.80-5.40) m/uL Hgb 7.6 L (11.4-16.0) gm/dL Hct 23.2 L (34.0-46.0) % RDW 20.5 H (11.5-15.5) % Neutrophils # 8.6 H (1.3-7.7) k/uL Sodium 136 L (137-145) mmol/L Potassium 3.2 L (3.5-5.1) mmol/L Chloride 96 L (98-107) mmol/L BUN 137 H* (7-17) mg/dL Creatinine 2.53 H (0.52-1.04) mg/dL Glucose 133 H (74-99) mg/dL Total Bilirubin 2.4 H (0.2-1.3) mg/dL Total Protein 5.9 L (6.3-8.2) g/dL Crossmatch See Detail
--- NOTE | 2022-07-02 15:23 | P.PN ---
Subjective Progress Note Date: 07/02/22 This is a 77-year-old female patient came into the emergency department after she had a fall and she hit her head and this occurred approximately 4 days ago. The patient came in to the emergency as the patient felt extremely weak and lightheaded and she was having difficulty with mobility and standing up. The patient also has chronic shortness of breath and she felt that her shortness of breath was slightly worse and the patient was placed on 6 L O2 nasal cannula. The patient denied having any nausea or vomiting or abdominal pain. The patient denied having any chest pain. No headache. No altered mentation. In the emergency, the patient was found to have no fever and the patient was hemodyn amically stable. EKG showed a normal sinus rhythm without any ST segment elevation. Chest x-ray showed no acute abnormalities. CAT scan of the head and C-spine showed no this of intracranial hemorrhage and no evidence of any C-spine fracture. Nevertheless, the patient was found to have a white cell count of 14.8 with a hemoglobin of 6.8, the patient's BUN was 152 with a creatinine of 2.5 and a sodium level was at 132 and a potassium level was at 3.0. Glucose was at 181. Note that this is an acute of her chronic kidney injury as the patient has chronic stage III kidney disease. The patient's troponin was at 0.07. LFTs were normal. The UA was essentially negative. The chest x-ray showed cardiomegaly with some mild increased pulmonary vascular markings. Otherwise no significant airspace disease. Troponin was at 0.07. The patient is currently admitted to the hospital. She is on normal saline at the rate of 75 mL an hour. Her diuretics were discontinued as the patient was taking Bumex on outpatient basis. The patient also takes Eliquis on outpatient basis for history of ch ronic atrial fibrillation. Noted the patient's cardiac rhythm is nature fibrillation for now and the patient is on metoprolol 12.5 mg by mouth daily and midodrine for chronic hypotension at a dose of 10 mg by mouth 3 times a day. As far as comorbid conditions, the patient has chronic problems with anemia. She has had GI blood loss as the patient has check possible occult stool in the past and she has undergone endoscopies and found to have diverticulosis. She also has previous history of Covid 19 pneumonia back in June 2021, recovered, she has chronic atrial fibrillation, hypertension, chronic severe pulmonary hypertension with a preserved LV function and ejection fraction of 55% and the patient has severe RV enlargement and pulmonary hypertension with a PA pressure of 75 and for that reason she has limited on the right ear an outpatient basis in combination with diuretics. She has COPD, chronic anemia, chronic stage III kidney disease. She has had previous CAT scan of the chest showing emphysema. I believe, the patient follows up with another cryogenics engineer from out of [facility], and [facility]. She has been maintained on Advair and DuoNeb nebulized treatments [id number] and she is on oxygen at 6 L/m. on06/30/2022, the patient is being seen for a follow-up. The patient got transfused with a unit of packed RBC and hemoglobin came at 7.7 and she is not showing any subjective signs of GI bleeding. Nevertheless, the patient was found to have low iron level of 21 and I think there is ongoing occult GI bleed probably related to diverticular bleed specially with her long-term and coagulation with Eliquis. Anticoagulation was held for now. At the same time, the patient creatinine has remained stable at 2.7. The patient was receiving gentle hydration. She is resting comfortably in bed. Her outpatient medications been resumed and the patient is currently on Bumex 2 mg by mouth twice a day and she was also restarted on metoprolol 12.5 mg twice a day and she is also on midodrine. Family is at the bedside. No other significant events overnight. The patient was seen by cardiology. No respiratory endoscopy at this point in time. On 07/01/2022, the patient is being seen for a follow-up. The patient is feeling dizziness especially when she stands up and moves around. She is noted to be also borderline hypotensive. I suggested to hold the diuretics today. I also noted that the patient acute on top of any chronic renal failure. The BUN is at 149 with a creatinine of 2.42 which is slightly improved compared to yesterday. Potassium level is low at this to be replaced at 2.5. Sodium is at 133. Noted the patient was started back on her Viagra and diuretics which is in the form of Bumex. She is currently off anticoagulation. No evidence of an acute GI bleed. She is receiving IV iron. Hemoglobin from yesterday was stable at 7.4. Occult stool is positive for blood On 07/02/2022, the patient is relatively stable, blood pressure is improved. The patient was taken off the diuretic and the renal function is stable and the patient's BUN is at 137 with a creatinine of 2.5 without any interval worsening compared to yesterday. Sodium is at 136 with a potassium level of 3.2. Rest of the blood work shows a hemoglobin of 7.6 and the patient continues to receive daily IV iron. She remains off anticoagulants. She is weak. She is lethargic. The patient remains on 6 L of oxygen by nasal cannula. She is having some abdominal pain and based on that and ultrasound of the abdomen was done and showed gallbladder sludge and possible very cholecystic fluid. General surgery be consulted accordingly. The patient has diminished appetite. No fever. No chills. The patient was seen by orthopedic surgery and the patient was found to have a left fourth metatarsal head fracture, nondisplaced, second third and fourth metatarsals and proximal phalanx fracture fourth digit left foot. The patient was also seen by general surgery. It was decided at the lower abdominal pain is unlikely to be related to the ultrasound findings of cholecystitis. Objective - Vital Signs Vital signs: Vital Signs Temp 97.6 F 07/02/22 12:23 Pulse 89 07/02/22 13:41 Resp 16 07/02/22 12:23 BP 106/50 07/02/22 13:41 Pulse Ox 99 07/02/22 12:23 FiO2 Intake & Output 07/01/22 07/02/22 07/02/22 18:59 06:59 18:59 Intake Total 640 120 Output Total 1300 550 600 Balance -660 -430 -600 Intake: Oral 640 120 Output: Urine 1300 550 600 Other: Voiding Method Bedpan Bedpan # Voids 1 # Bowel Movements 1 1 - Exam No acute distress, oriented 3. No respiratory distress. No conversational dyspnea or use of accessory muscles. The patient remains on 6 L nasal cannula. Saturations are 99 %. Head exam was generally normal. There was no scleral icterus or corneal arcus. Mucous membranes were moist. HEENT examination is grossly unremarkable. Cardiovascular examination reveals irregular rhythm rate. Irregular S1 and S2 consistent with atrial fibrillation. There is accentuation of the second heart sounds secondary to pulmonary hypertension the patient has a grade 3-4 systolic ejection murmur heard over the left lateral sternal border. There is also some right ventricular heave. Lungs reveal bilateral rhonchi and crackles. No wheezes. Breath sounds are eq ual bilaterally. Breath sounds are minimally improved. Abdomen soft bowel sounds are heard. No masses or tenderness. Extremities are intact. No cyanosis clubbing or edema. Examination of the skin revealed no evidence of significant rashes, suspicious appearing nevi or other concerning lesions. Neurologically, the patient is awake and alert and the patient does not have any focal neurological deficit. Cranial nerves are essentially intact. - Labs CBC & Chem 7: 07/02/22 07:47 07/02/22 07:47 Labs: Abnormal Lab Results - Last 24 Hours (Table) 06/29/22 07/02/22 07/02/22 Range/Units 15:30 07:47 07:47 RBC 2.48 L (3.80-5.40) m/uL Hgb 7.6 L (11.4-16.0) gm/dL Hct 23.2 L (34.0-46.0) % RDW 20.5 H (11.5-15.5) % Neutrophils # 8.6 H (1.3-7.7) k/uL Sodium 136 L (137-145) mmol/L Potassium 3.2 L (3.5-5.1) mmol/L Chloride 96 L (98-107) mmol/L BUN 137 H* (7-17) mg/dL Creatinine 2.53 H (0.52-1.04) mg/dL Glucose 133 H (74-99) mg/dL Total Bilirubin 2.4 H (0.2-1.3) mg/dL Total Protein 5.9 L (6.3-8.2) g/dL Crossmatch See Detail Assessment and Plan Plan: Fall, 4 days ago, no skeletal injury, no head trauma, CAT scan of the brain and C-spine were negative.the patient has developed some facial bruising. The patient is currently off anticoagulation. Left foot metatarsal head fractures, nondisplaced digits 2 through 4; proximal phalanx fracture fourth digit left foot, nondisplaced Generalized weakness, multifactorial, obviously anemia is also contributing to his generalized weakness and shortness of breath. Acute on chronic shortness of breath. The patient has severe pulmonary hypertension and the patient has limited on O2 at 6 L. She also has issues with chronic anemia and the patient has again dropped her hemoglobin down to 6.8. His has been investigated in the past and we think this is a GI loss as the patient is diverticular disease and NC component of iron deficiency anemia. Chronic hypoxic respiratory failure, as the patient is demented on 6 L of oxygen by nasal cannula since 2019. Chronic pulmonary hypertension, with severe dilatation of the RV and significant pulmonary hypertension Abnormal troponin, no acute ischemic EKG changes Acute on chronic kidney disease as the patient is known to have chronic stage III kidney disease and this could be essentially related to dehydration, and the patient's BUN and creatinine is still elevated and the patient remains off diuretics History of chronic atrial fibrillation. Rate is controlled and the patient is Eliquis is long-term anticoagulation hypertension COPD cute Anemia and patient had EDG/colonoscopy, the patient doesn't transfused with a unit of packed RBC and hemoglobin is stable coronavirus associated pneumonia June 2021, recovered Biliary sludge and cholelithiasis with questionable cholecystitis based on ultrasound findings Plan Input from nephrology and general surgery and orthopedic surgery is appreciated Hold Bumex for today Repeat electrolytes for tomorrow Completing IV iron infusions Hemoglobin is stable Hemoglobin is stable for now No need for endoscopy Anticoagulation will be placed on hold Gentle hydration, renal function Titrate oxygen flow to maintain a saturation above 90% We'll continue to follow
[2022-07-03] MEDS: SYMBICORT 160-4.5 MCG INHALER INHALATION SCH ×2 (08:54→20:07)
--- NOTE | 2022-07-03 08:54 | P.PN ---
Subjective Progress Note Date: 07/03/22 Principal diagnosis: Seen with acute kidney injury secondary to cardiorenal syndrome and low blood pressure with severe anemia hemoglobin was 6.8. Also known with chronic kidney disease stage III Baseline creatinine 2. Etiology nephrosclerosis. Patient has history of GI bleed. Is known with COPD on home oxygen with coronary hypertension atrial fibrillation diverticulosis as well as possible cholecystitis Blood pressure remains low in the 90s to 107/55. 24-hour intake and output are not accurately documented. Labs this morning pending creatinine yesterday was 2.53 History of present illness: Patient is a 77-year-old female seen in renal consultation for acute kidney i njury on chronic kidney disease. Patient has chronic kidney disease stage IIIB with baseline creatinine near 2 secondary to nephrosclerosis and cardiorenal syndrome. Renal function this admission has been fairly stable. Creatinine 2.53 today. Patient presented to the hospital after she sustained a fall and hit her head. Patient was complaining of dizziness with positional changes prior to admission. She was noted to be anemic with hemoglobin of 6.8 and did receive blood transfusion this admission. Hemoglobin 7.6 this morning. She denies any melena or hematochezia. No hematuria. Blood pressure is stable but on the lower side. She is currently on 6 L nasal cannula. Abdominal ultrasound showed normal-sized kidneys without any evidence of hydronephrosis. There was concern for acute cholecystitis. She is being followed by surgery. Patient states she has been voiding. She has history of diastolic CHF. Mild to moderate mitral regurgitation, severe tricuspid regurgitation and pulmonary hypertension. Denies history of diabetes. Denies history of coronary artery disease. Vital signs are stable. Objective - Vital Signs Vital signs: Vital Signs Temp 97.8 F 07/03/22 07:51 Pulse 89 07/03/22 07:51 Resp 18 07/03/22 07:51 BP 97/55 07/03/22 07:51 Pulse Ox 99 07/03/22 07:51 FiO2 Intake & Output 07/02/22 07/03/22 07/03/22 18:59 06:59 18:59 Output Total 600 Balance -600 Output: Urine 600 Other: Voiding Method Bedpan Bedpan # Voids 1 1 # Bowel Movements 1 1 Milligrams and awake alert oriented on nasal cannula oxygen. HEENT exam no JVP neck is supple no facial asymmetry Lungs are clear to auscultation fair air entry bilaterally Heart sounds are remarkable for a loud grade 2-3 systolic ejection murmur. In atrial fibrillation Abdomen soft nontender Extremity exam was no edema Neurologically awake alert oriented generalized weakness. - Labs CBC & Chem 7: 07/02/22 07:47 07/02/22 07:47 Labs: Abnormal Lab Results - Last 24 Hours (Table) 07/02/22 07/02/22 Range/Units 07:47 07:47 RBC 2.48 L (3.80-5.40) m/uL Hgb 7.6 L (11.4-16.0) gm/dL Hct 23.2 L (34.0-46.0) % RDW 20.5 H (11.5-15.5) % Neutrophils # 8.6 H (1.3-7.7) k/uL Sodium 136 L (137-145) mmol/L Potassium 3.2 L (3.5-5.1) mmol/L Chloride 96 L (98-107) mmol/L BUN 137 H* (7-17) mg/dL Creatinine 2.53 H (0.52-1.04) mg/dL Glucose 133 H (74-99) mg/dL Total Bilirubin 2.4 H (0.2-1.3) mg/dL Total Protein 5.9 L (6.3-8.2) g/dL Assessment and Plan Assessment: Assessment: 1. Acute kidney injury secondary to ATN secondary to anemia and cardiorenal syndrome. Renal function fairly stable this admission. Creatinine 2.53 today. No hydronephrosis noted on kidney ultrasound. 2. Chronic kidney disease stage IIIB with baseline creatinine near 2 secondary to nephrosclerosis and cardiorenal syndrome. 3. GI bleed status post blood transfusion. Surgery following. Receiving IV iron. Hemoglobin 7.6 as of yesterday 4. Hypokalemia from poor intake and diuresis. Potassium is 3.2 yesterday last pending today 5. Chronic diastolic CHF with mild to moderate mitral regurgitation, severe tricuspid regurgitation and pulmonary hypertension. Plan: Pending labs today no changes. May need additional potassium supplement based on labs pending Monitor volume status closely. Will likely need to resume diuretics in the next 24-48 hours. Continue Aranesp. Avoid nephrotoxins. Continue to monitor renal function and urine output. Thank you for the consultation. I will continue to follow the patient with you during her hospital stay.
[2022-07-03] MEDS: MIDODRINE 5 MG TAB PO SCH ×3 (09:31→20:38)
[2022-07-03] MEDS: SODIUM FERRIC GLUCONAT-SUCROSE 125 MG in SODIUM CHLORIDE 0.9% 100 ML IVPB SCH (09:31)
[2022-07-03] MEDS: SUCRALFATE 1 GM TAB PO SCH ×3 (09:31→16:36)
[2022-07-03] MEDS: PANTOPRAZOLE 40 MG/10 ML VIAL IVP SCH ×2 (09:32→20:38)
[2022-07-03] MEDS: SILDENAFIL 20 MG TAB PO SCH ×3 (09:32→20:58)
[2022-07-03] MEDS: ATORVASTATIN 40 MG TAB PO SCH (09:32)
[2022-07-03] MEDS: ACETAMINOPHEN TAB 325 MG TAB PO PRN ×3 (09:34→20:38)
[2022-07-03 09:37] LABS: Calcium 8.7 mg/dL (8.4-10.2); Magnesium 2.4 mg/dL (1.6-2.3); Potassium 3.3 mmol/L (3.5-5.1)
[2022-07-03] MEDS ORDERED: POTASSIUM CHLORIDE ER 20 MEQ TAB.ER PO STA (09:50)
--- NOTE | 2022-07-03 10:19 | P.PN ---
Subjective Progress Note Date: 07/03/22 Principal diagnosis: GI bleeding Patient doing better today. No further abdominal pain. Tolerating clear liquids. Hemoglobin 7.6 yesterday. No bloody stools. Objective - Vital Signs Vital signs: Vital Signs Temp 97.8 F 07/03/22 07:51 Pulse 89 07/03/22 07:51 Resp 18 07/03/22 07:51 BP 97/55 07/03/22 07:51 Pulse Ox 99 07/03/22 07:51 FiO2 Intake & Output 07/02/22 07/03/22 07/03/22 18:59 06:59 18:59 Output Total 600 Balance -600 Output: Urine 600 Other: Voiding Method Bedpan Bedpan # Voids 1 1 # Bowel Movements 1 1 - Exam Abdomen: Soft, nontender, nondistended - Labs CBC & Chem 7: 07/02/22 07:47 07/03/22 09:12 Labs: Abnormal Lab Results - Last 24 Hours (Table) 07/03/22 Range/Units 09:12 Sodium 134 L (137-145) mmol/L Potassium 3.3 L (3.5-5.1) mmol/L Chloride 97 L (98-107) mmol/L BUN 122 H* (7-17) mg/dL Creatinine 2.36 H (0.52-1.04) mg/dL Glucose 177 H (74-99) mg/dL Magnesium 2.4 H (1.6-2.3) mg/dL Assessment and Plan (1) GI bleed Narrative/Plan: Patient is doing better today. No abdominal pain or rectal bleeding. Advance diet to regular. Will follow. Current Visit: Yes Status: Acute Code(s): K92.2 - GASTROINTESTINAL HEMORRHAGE, UNSPECIFIED SNOMED Code(s): 80785183
--- NOTE | 2022-07-03 10:25 | P.PN ---
Subjective Progress Note Date: 07/03/22 Principal diagnosis: Left foot pain Patient was seen at bedside this morning lying semirecumbent position. Patient says she is still having pain in the left foot and the digits of her left foot. Patient says her left ankle is feeling much better in that she is able to move it better today. Cam Walker boot is at bedside. Patient denies any other areas of pain. Patient says she is looking forward to working with physical therapy today and walking around the room and using the commode at bedside. Patient denies chest pain, fever, increasing shortness of breath, nausea, vomiting, change in vision, loss of bowel/bladder control. Objective - Vital Signs Vital signs: Vital Signs Temp 97.8 F 07/03/22 07:51 Pulse 89 07/03/22 07:51 Resp 18 07/03/22 07:51 BP 97/55 07/03/22 07:51 Pulse Ox 99 07/03/22 07:51 FiO2 Intake & Output 07/02/22 07/03/22 07/03/22 18:59 06:59 18:59 Output Total 600 Balance -600 Output: Urine 600 Other: Voiding Method Bedpan Bedpan # Voids 1 1 # Bowel Movements 1 1 - Exam Inspection: Negative for any open fractures, significant ecchymosis/ulcers. There is evident bruising and soft tissue swelling in the midfoot on the left lower extremity. Sensation: Sensation is equal, symmetric, bilaterally intact throughout the upper and lower extremities. Palpation: Severe tenderness to palpation diffusely throughout the left foot in the midfoot and over digits 2 through 4. Patient has TTP with light and deep palpaion of left foot. Nontender to palpation throughout rest of exam Range of motion: Patient does have full range of motion bilateral upper extremities and right lower extremity on exam. Patient does have full range of motion left hip in flexion/extension and knee flexion/extension. Patient does have limited range of motion in left ankle dorsi/plantar flexion and digits 2 through 4 and left foot due to pain Motor: 5/5 in all major motor groups in bilateral upper extremities and right lower extremity on exam. 5/5 in resisted left hip flexion/extension in left knee flexion extension. 3/5 in resisted left ankle dorsi/plantar flexion. Special tests: Negative clonus bilaterally. Negative Amber bilaterally. Negative Homans bilaterally Neurovascular status: Capillary refill under 3 seconds in digits of right lower extremities. Radial pulse intact, bilaterally. Dorsalis pedis pulses palpable however weak. - Labs CBC & Chem 7: 07/02/22 07:47 07/03/22 09:12 Labs: Abnormal Lab Results - Last 24 Hours (Table) 07/03/22 Range/Units 09:12 Sodium 134 L (137-145) mmol/L Potassium 3.3 L (3.5-5.1) mmol/L Chloride 97 L (98-107) mmol/L BUN 122 H* (7-17) mg/dL Creatinine 2.36 H (0.52-1.04) mg/dL Glucose 177 H (74-99) mg/dL Magnesium 2.4 H (1.6-2.3) mg/dL Assessment and Plan Assessment: 1. Left foot metatarsal head fractures, nondisplaced digits 2 through 4; proximal phalanx fracture fourth digit left foot, nondisplaced 2. Multiple medical comorbidities Plan: 1. Left foot metatarsal head fractures, nondisplaced digits 2 through 4; proximal phalanx fracture fourth digit left foot, nondisplaced - patient stable at bedside this morning. X-rays of the left foot have been reviewed and do demonstrate metatarsal head fractures that are nondisplaced and digits 2 through 4 on the left foot as well as proximal phalanx fracture in the fourth digit of the left foot. At this time we do not recommend any emergent/urgent orthopedic surgical intervention. A Cam Walker boot was ordered and is at bedside this morning. patient is able to bear weight only through the heel of the left foot wit cam walker boot on LLE. Do not bear weight thru toes of the left foot. Patient is to be weightbearing as tolerated on the right lower extremity and use walker as needed. Pain medication as needed. Patient is stable from an orthopedic standpoint for discharge. At this time orthopedics is signing off. Please do not hesitate to contact us for any further questions. 2. Appreciate medical management 3. Pain management - Tylenol 4. DVT prophylaxis - mechanical 5. GI prophylaxis - Protonix 6. PT/OT - nonweightbearing left lower extremity. patient may bear weight on the left foot only through the heel with Cam Walker boot on. Weightbearing as t olerated right lower extremity and use walker as needed 7. Encourage incentive spirometer use 8. Appreciate consult Time with Patient: Less than 30
--- NOTE | 2022-07-03 11:33 | P.PN ---
Subjective Progress Note Date: 07/03/22 Selena Hinton is a 77 yo F with PMH of severe COPD on 6 LPM home O2, pulmonary hypertension, persistent AF on eliquis, CAD, diverticulosis who presented to the ED with increasing weakness and a fall at home. She complains that over the past week she has been feeling weak and shaky, lightheaded when she is up and moving. She notes that a few days ago she fell and hit her head and since then her symptoms have worsened. She denies chest pain, fever, chills, abdominal pain, nausea. She denies melena or hematochezia. On presentation BP 96/50, SpO2 92% on 6 LPM, WBC 14k, Hgb 6.8, BUN 150, Cr 2.5, trop 0.077. CXR with cardiomegaly and correlate for pulmonary fibrosis. 07/01/22. Patient seen and examined. Still states that she does not feel well. Denies any blood in the stools. Still has abdominal pain. Currently on 6 L of oxygen. Hemoglobin this morning is 7.4 07/02/22. Patient seen and examined. Continues to have abdominal pain. Ultrasound of the abdominal and showed gallbladder sludge and possible inflammation. Complaining of left foot pain 07/03. Patient seen and examined. Abdominal pain has improved, no blood in the stools. Currently on clear liquid diet. Surgery has advanced the diet to full liquid. Left foot pain is improved REVIEW OF SYSTEMS: CONSTITUTIONAL: No fever, no malaise,. CARDIOVASCULAR: No chest pain, no palpitations, no syncope. PULMONARY: Complaining of shortness of breath, no cough, GASTROINTESTINAL: No diarrhea, no nausea, no vomiting. NEUROLOGICAL: No headaches, no weakness, PHYSICAL EXAMINATION: GENERAL: The patient is alert and oriented x3, not in any acute distress. Well developed, well nourished. HEENT: Pupils are round and equally reacting to light. EOMI. No scleral icterus. No conjunctival pallor. Normocephalic, atraumatic. No pharyngeal erythema. No thyromegaly. CARDIOVASCULAR: S1 and S2 present. No murmurs, rubs, or gallops. PULMONARY: Coarse breath some bilaterally. ABDOMEN: No tenderness, no guarding. No palpable organomegaly. MUSCULOSKELETAL: No joint swelling or deformity. EXTREMITIES: No cyanosis, clubbing, or pedal edema. NEUROLOGICAL: Gross neurological examination did not reveal any focal deficits. SKIN: No rashes. Assessment and plan -Acute blood loss anemia -GIB. Suspect diverticular bleed. Elevated troponin, type II NSTEMI. Secondary to anemia. Acute blood loss anemia Atrial fibrillation. COPD on home oxygen. Severe pulmonary hypertension History of lung disease Severe Mitral regurgitation Severe tricuspid regurgiation Acute on chronic kidney disease likely secondary to anemia Left foot metatarsal head fractures, nondisplaced digits 2 through 4; proximal phalanx fracture fourth digit left foot, nondisplaced Abdominal pain,US findings concerning for acute cholecystitis, clinically patient has improved Plan; Monitor electrolytes. Monitor renal functions Monitor CBC. Hold Eliquis for now. Continue Bumex Continue Toprol Continue IV iron replacement Continue statin, beta thomas Continue sildenafil 20 mg 3 times daily for pulmonary hypertension US findings concerning for acute cholecystitis. Patient would be high risk for any surgery and would consider perc drain if indicated. Gen. surgery is on board, patient pain has resolved. Surgery has started patient on diet Orthopedic and medical to the patient for left foot fractures, they recommended conservative treatment with orthopedic boot Follow-up on cardiology recommendations Follow-up on pulmonary recommendations Follow-up on nephrology recommendations Objective - Vital Signs Vital signs: Vital Signs Temp 97.8 F 07/03/22 07:51 Pulse 89 07/03/22 07:51 Resp 18 07/03/22 07:51 BP 97/55 07/03/22 07:51 Pulse Ox 99 07/03/22 07:51 FiO2 Intake & Output 07/02/22 07/03/22 07/03/22 18:59 06:59 18:59 Output Total 600 Balance -600 Output: Urine 600 Other: Voiding Method Bedpan Bedpan # Voids 1 1 # Bowel Movements 1 1 - Labs CBC & Chem 7: 07/02/22 07:47 07/03/22 09:12 Labs: Abnormal Lab Results - Last 24 Hours (Table) 07/03/22 Range/Units 09:12 Sodium 134 L (137-145) mmol/L Potassium 3.3 L (3.5-5.1) mmol/L Chloride 97 L (98-107) mmol/L BUN 122 H* (7-17) mg/dL Creatinine 2.36 H (0.52-1.04) mg/dL Glucose 177 H (74-99) mg/dL Magnesium 2.4 H (1.6-2.3) mg/dL
[2022-07-03] MEDS: METOPROLOL SUCCINATE (ER) 25 MG TAB.ER.24H PO SCH (11:43)
--- NOTE | 2022-07-03 14:09 | P.PN ---
Subjective HISTORY OF PRESENTING ILLNESS The patient is a 76-year-old female with a known history of mild nonobstructive coronary artery disease, long standing persistent atrial fibrillation on eliquis, severe pulmonary hypertension, severe mitral regurgitation, severe tricuspid regurgitation, PFO, dyslipidemia, history of pulmonary embolism, chronic respiratory failure, and hypertension. She follows we Dr. Goldman. We have been asked to see the patient for elevated troponin. She presents to the hospital with complaints of fall and hit her head. Increased generalized weakness over the past 4 days, lightheadedness. She denies any chest pain. She has chronic shortness of breath, wears 6L O2 at home. She denies any bleeding. Denies any dizziness or syncope or loss of consciousness. On admission patient found to have a hemoglobin of 6.8, potassium 3.0, stool occult blood positive. She was given 1 unit of PRBCs with improvement in her hemoglobin to 7.9. DIAGNOSTICS * EKG reveals atrial fibrillation with HR 86 * Echocardiogram 01/2022 revealed an EF of 50%, severe right ventricular dilatation with severe pulmonary hypertension, severe tricuspid regurgitation, right ventricular apical hypokinesis. * Telemetry tracings indicate atrial fibrillation with controlled ventricular rate * CT brain and cervical spine- no acute intracranial process, no significant change from prior, chronic small vessel ischemic disease, probable bilateral frontal lobe injuries, no evidence of cervical spine fracture, moderate left- sided level degenerative disc disease. Interstitial lung disease changes. * Chest xray cardiomegaly, no obvious heart failure, no pleural effusions. Coarse lung markings. * Laboratory reviewed, WBC 14.2, hemoglobin 7.9, platelets 247,. Sodium 132, potassium 3.0, BUN 152, serum creatinine 2.5, magnesium 2.6, proBNP 11,600 * Current home cardiac medications include Eliquis 2.5mg BID, Sildenafil, Potassium chloride, metoprolol succinate 12.5mg daily, Bumex 2mg BID, atorvastatin 40mg daily. * Cardiac catheterization History: * 11/2018 revealed minimal nonobstructive coronary artery disease, cardiac output 3.4 L, pulmonary artery systolic pressure 48 with a diastolic of 18, mean of 28 mmHg. Right ventricle systolic pressure 15 with end-diastolic of 5. 2 to 3+ mitral regurgitation 07/01 Patient still with significant SOB. No hematochezia or melena. No chest pain or pressure. She did feel somewhat better after blood transfusion yesterday. Hemoglobin this morning 7.4. BUN and creatinine not back yet today however previously extremely elevated 154 with a creatinine mildly 2.5, 2.7. 07/02 Patient seen and examined. Patient denies any abdominal pain. She is still having significant dyspnea. Still has significantly elevated BUN and creatinine and lasix have been on hold. Abdominal ultrasound shows biliary sludge with pericholecystic fluid with gallbladder wall thickening and positive Alicea's sign concerning for cholecystitis. 07/03 Patient seen and examined. Patient still having lower abdominal pain. Admits to mild appetite. Has had some constipation. Blood pressure still borderline 90s over 50s, 100s over 50s. Denies any change in her chronic dyspnea. Creatinine mildly improved 2.3 and BUN 122. Hemoglobin 7.6 PHYSICAL EXAMINATION Vitals reviewed CONSTITUTIONAL: No apparent distress. HEENT: Head is normocephalic. Pupils are equal, round. Sclerae anicteric. Mucous membranes of the mouth are moist. No JVD. No carotid bruit. CHEST EXAMINATION: Lungs are clear to auscultation. No chest wall tenderness is noted on palpation or with deep breathing. HEART EXAMINATION: Irregular rate and rhythm. S1, S2 heard. Systolic ejection murmur, +RV heave. ABDOMEN: Soft, nontender. Positive bowel sounds. EXTREMITIES: 2+ peripheral pulses, no lower extremity edema and no calf tenderness. NEUROLOGIC EXAMINATION: Patient is awake, alert and oriented x3. ASSESSMENT Generalized weakness, lightheadedness Anemia with stool occult blood positive Hypokalemia Severe pulmonary hypertension, previous echo 01/2022 with RVSP 123, improved to 75 05/05 however decrease may be related to RV failure History of lung disease Severe Mitral regurgitation Severe tricuspid regurgiation Acute on chronic kidney disease likely secondary to anemia Mild troponin elevation secondary to type II event in a patient with mild CAD in the past Long standing persistent atrial fibrillation s/p previous ablation was ant icoagulated in the past, on hold at this time History of hypertension Hypotension PFO Mild CAD by cardiac catheterization in 2019 PLAN Anticoagulation on hold secondary to anemia Monitor Cr, likely some degree of cardiorenal syndrome US findings concerning for acute cholecystitis however having more lower abdominal pain. Patient would be high risk for any surgery and would consider perc drain if indicated. Continue statin, beta thomas and Revatio Continue to hold diuretics with BUN, Cr slowly improving Further recommendations based on clinical course Poor prognosis Objective - Vital Signs Vital signs: Vital Signs Temp 97.9 F 07/03/22 12:18 Pulse 72 07/03/22 12:18 Resp 18 07/03/22 12:18 BP 100/59 07/03/22 12:18 Pulse Ox 97 07/03/22 12:18 FiO2 Intake & Output 07/02/22 07/03/22 07/03/22 18:59 06:59 18:59 Output Total 600 Balance -600 Output: Urine 600 Other: Voiding Method Bedpan Bedpan Bedpan # Voids 1 1 # Bowel Movements 1 1 - Labs CBC & Chem 7: 07/02/22 07:47 07/03/22 09:12 Labs: Abnormal Lab Results - Last 24 Hours (Table) 07/03/22 Range/Units 09:12 Sodium 134 L (137-145) mmol/L Potassium 3.3 L (3.5-5.1) mmol/L Chloride 97 L (98-107) mmol/L BUN 122 H* (7-17) mg/dL Creatinine 2.36 H (0.52-1.04) mg/dL Glucose 177 H (74-99) mg/dL Magnesium 2.4 H (1.6-2.3) mg/dL
--- NOTE | 2022-07-03 15:25 | P.PN ---
Subjective Progress Note Date: 07/03/22 This is a 77-year-old female patient came into the emergency department after she had a fall and she hit her head and this occurred approximately 4 days ago. The patient came in to the emergency as the patient felt extremely weak and lightheaded and she was having difficulty with mobility and standing up. The patient also has chronic shortness of breath and she felt that her shortness of breath was slightly worse and the patient was placed on 6 L O2 nasal cannula. The patient denied having any nausea or vomiting or abdominal pain. The patient denied having any chest pain. No headache. No altered mentation. In the emergency, the patient was found to have no fever and the patient was hemodyn amically stable. EKG showed a normal sinus rhythm without any ST segment elevation. Chest x-ray showed no acute abnormalities. CAT scan of the head and C-spine showed no this of intracranial hemorrhage and no evidence of any C-spine fracture. Nevertheless, the patient was found to have a white cell count of 14.8 with a hemoglobin of 6.8, the patient's BUN was 152 with a creatinine of 2.5 and a sodium level was at 132 and a potassium level was at 3.0. Glucose was at 181. Note that this is an acute of her chronic kidney injury as the patient has chronic stage III kidney disease. The patient's troponin was at 0.07. LFTs were normal. The UA was essentially negative. The chest x-ray showed cardiomegaly with some mild increased pulmonary vascular markings. Otherwise no significant airspace disease. Troponin was at 0.07. The patient is currently admitted to the hospital. She is on normal saline at the rate of 75 mL an hour. Her diuretics were discontinued as the patient was taking Bumex on outpatient basis. The patient also takes Eliquis on outpatient basis for history of ch ronic atrial fibrillation. Noted the patient's cardiac rhythm is nature fibrillation for now and the patient is on metoprolol 12.5 mg by mouth daily and midodrine for chronic hypotension at a dose of 10 mg by mouth 3 times a day. As far as comorbid conditions, the patient has chronic problems with anemia. She has had GI blood loss as the patient has check possible occult stool in the past and she has undergone endoscopies and found to have diverticulosis. She also has previous history of Covid 19 pneumonia back in June 2021, recovered, she has chronic atrial fibrillation, hypertension, chronic severe pulmonary hypertension with a preserved LV function and ejection fraction of 55% and the patient has severe RV enlargement and pulmonary hypertension with a PA pressure of 75 and for that reason she has limited on the right ear an outpatient basis in combination with diuretics. She has COPD, chronic anemia, chronic stage III kidney disease. She has had previous CAT scan of the chest showing emphysema. I believe, the patient follows up with another traffic coordinator from out of [facility], and [facility]. She has been maintained on Advair and DuoNeb nebulized treatments [id number] and she is on oxygen at 6 L/m. on06/30/2022, the patient is being seen for a follow-up. The patient got transfused with a unit of packed RBC and hemoglobin came at 7.7 and she is not showing any subjective signs of GI bleeding. Nevertheless, the patient was found to have low iron level of 21 and I think there is ongoing occult GI bleed probably related to diverticular bleed specially with her long-term and coagulation with Eliquis. Anticoagulation was held for now. At the same time, the patient creatinine has remained stable at 2.7. The patient was receiving gentle hydration. She is resting comfortably in bed. Her outpatient medications been resumed and the patient is currently on Bumex 2 mg by mouth twice a day and she was also restarted on metoprolol 12.5 mg twice a day and she is also on midodrine. Family is at the bedside. No other significant events overnight. The patient was seen by cardiology. No respiratory endoscopy at this point in time. On 07/01/2022, the patient is being seen for a follow-up. The patient is feeling dizziness especially when she stands up and moves around. She is noted to be also borderline hypotensive. I suggested to hold the diuretics today. I also noted that the patient acute on top of any chronic renal failure. The BUN is at 149 with a creatinine of 2.42 which is slightly improved compared to yesterday. Potassium level is low at this to be replaced at 2.5. Sodium is at 133. Noted the patient was started back on her Viagra and diuretics which is in the form of Bumex. She is currently off anticoagulation. No evidence of an acute GI bleed. She is receiving IV iron. Hemoglobin from yesterday was stable at 7.4. Occult stool is positive for blood On 07/02/2022, the patient is relatively stable, blood pressure is improved. The patient was taken off the diuretic and the renal function is stable and the patient's BUN is at 137 with a creatinine of 2.5 without any interval worsening compared to yesterday. Sodium is at 136 with a potassium level of 3.2. Rest of the blood work shows a hemoglobin of 7.6 and the patient continues to receive daily IV iron. She remains off anticoagulants. She is weak. She is lethargic. The patient remains on 6 L of oxygen by nasal cannula. She is having some abdominal pain and based on that and ultrasound of the abdomen was done and showed gallbladder sludge and possible very cholecystic fluid. General surgery be consulted accordingly. The patient has diminished appetite. No fever. No chills. The patient was seen by orthopedic surgery and the patient was found to have a left fourth metatarsal head fracture, nondisplaced, second third and fourth metatarsals and proximal phalanx fracture fourth digit left foot. The patient was also seen by general surgery. It was decided at the lower abdominal pain is unlikely to be related to the ultrasound findings of cholecystitis. 07/03/2022, the patient is doing well. No new complaints. Her hemoglobin is stable. Her renal function is also stable to slightly improved compared to yesterday. She is alert and awake and sitting up on a chair. She is on 6 L O2 nasal cannula. No evidence of GI bleeding. Hemoglobin today is at 7.6. The BUN is 122 with a creatinine of 2.3 and a potassium level is at 3.3. The patient has no other complaints. No nausea or vomiting or emesis. No active issues with pain. No other significant events overnight. Tolerating the diet. Potassium is being replaced. Still off the Bumex. Objective - Vital Signs Vital signs: Vital Signs Temp 97.9 F 07/03/22 12:18 Pulse 72 07/03/22 12:18 Resp 18 07/03/22 12:18 BP 100/59 07/03/22 12:18 Pulse Ox 97 07/03/22 12:18 FiO2 Intake & Output 07/02/22 07/03/22 07/03/22 18:59 06:59 18:59 Intake Total 525 Output Total 600 400 Balance -600 125 Intake: Oral 525 Output: Urine 600 400 Other: Voiding Method Bedpan Bedpan Bedpan # Voids 1 1 # Bowel Movements 1 1 2 - Exam No acute distress, oriented 3. No respiratory distress. No conversational dyspnea or use of accessory muscles. The patient remains on 6 L nasal cannula. Saturations are 99 %. Head exam was generally normal. There was no scleral icterus or corneal arcus. Mucous membranes were moist. HEENT examination is grossly unremarkable. Cardiovascular examination reveals irregular rhythm rate. Irregular S1 and S2 consistent with atrial fibrillation. There is accentuation of the second heart sounds secondary to pulmonary hypertension the patient has a grade 3-4 systolic ejection murmur heard over the left lateral sternal border. There is also some right ventricular heave. Lungs reveal bilateral rhonchi and crackles. No wheezes. Breath sounds are equal bilaterally. Breath sounds are minimally improved. Abdomen soft bowel sounds are heard. No masses or tenderness. Extremities are intact. No cyanosis clubbing or edema. Examination of the skin revealed no evidence of significant rashes, suspicious appearing nevi or other concerning lesions. Neurologically, the patient is awake and alert and the patient does not have any focal neurological deficit. Cranial nerves are essentially intact. - Labs CBC & Chem 7: 07/02/22 07:47 07/03/22 09:12 Labs: Abnormal Lab Results - Last 24 Hours (Table) 07/03/22 Range/Units 09:12 Sodium 134 L (137-145) mmol/L Potassium 3.3 L (3.5-5.1) mmol/L Chloride 97 L (98-107) mmol/L BUN 122 H* (7-17) mg/dL Creatinine 2.36 H (0.52-1.04) mg/dL Glucose 177 H (74-99) mg/dL Magnesium 2.4 H (1.6-2.3) mg/dL Assessment and Plan Plan: Fall, 4 days ago, no skeletal injury, no head trauma, CAT scan of the brain and C-spine were negative.the patient has developed some facial bruising. The patient is currently off anticoagulation. Left foot metatarsal head fractures, nondisplaced digits 2 through 4; proximal phalanx fracture fourth digit left foot, nondisplaced Generalized weakness, multifactorial, obviously anemia is also contributing to his generalized weakness and shortness of breath. Acute on chronic shortness of breath. The patient has severe pulmonary hypertension and the patient has limited on O2 at 6 L. She also has issues with chronic anemia and the patient has again dropped her hemoglobin down to 6.8. His has been investigated in the past and we think this is a GI loss as the patient is diverticular disease and MS component of iron deficiency anemia. Chronic hypoxic respiratory failure, as the patient is demented on 6 L of oxygen by nasal cannula since 2019. Chronic pulmonary hypertension, with severe dilatation of the RV and significant pulmonary hypertension Abnormal troponin, no acute ischemic EKG changes Acute on chronic kidney disease as the patient is known to have chronic stage III kidney disease and this could be essentially related to dehydration, and the patient's BUN and creatinine is still elevated and the patient remains off diuretics History of chronic atrial fibrillation. Rate is controlled and the patient is Eliquis is long-term anticoagulation hypertension COPD Acute Anemia and patient had EDG/colonoscopy, the patient doesn't transfused with a unit of packed RBC and hemoglobin is stable coronavirus associated pneumonia June 2021, recovered Biliary sludge and cholelithiasis with questionable cholecystitis based on ultrasound findings Plan Renal function is stable Keep diuretics on hold Hemoglobin is stable and there is no evidence of any GI bleeding Anticoagulation will be placed on hold Gentle hydration, renal function Titrate oxygen flow to maintain a saturation above 90% We'll continue to follow
[2022-07-03] MEDS: polyethylene glycoL 3350 17 GM POWD.PACK PO SCH ×2 (16:36→20:37)
[2022-07-03] MEDS: DOCUSATE 100 MG CAP PO SCH (20:39)
[2022-07-04] MEDS: ACETAMINOPHEN TAB 325 MG TAB PO PRN ×2 (08:10→13:42)
[2022-07-04] MEDS: SODIUM FERRIC GLUCONAT-SUCROSE 125 MG in SODIUM CHLORIDE 0.9% 100 ML IVPB SCH (08:10)
[2022-07-04] MEDS: MIDODRINE 5 MG TAB PO SCH ×3 (08:10→19:54)
[2022-07-04] MEDS: polyethylene glycoL 3350 17 GM POWD.PACK PO SCH ×2 (08:10→19:55)
[2022-07-04] MEDS: SILDENAFIL 20 MG TAB PO SCH ×3 (08:11→19:55)
[2022-07-04] MEDS: PANTOPRAZOLE 40 MG/10 ML VIAL IVP SCH ×2 (08:11→19:54)
[2022-07-04] MEDS: DOCUSATE 100 MG CAP PO SCH ×2 (08:11→19:55)
[2022-07-04] MEDS: ATORVASTATIN 40 MG TAB PO SCH (08:11)
[2022-07-04] MEDS: SUCRALFATE 1 GM TAB PO SCH ×3 (08:11→16:59)
[2022-07-04] MEDS: SYMBICORT 160-4.5 MCG INHALER INHALATION SCH ×2 (08:22→21:14)
[2022-07-04 08:30] LABS: Albumin 3.4 g/dL (3.5-5.0); Calcium 8.9 mg/dL (8.4-10.2); Potassium 4.1 mmol/L (3.5-5.1); Total Bilirubin 2.6 mg/dL (0.2-1.3); Total Protein 5.7 g/dL (6.3-8.2)
[2022-07-04 08:39] LABS: Anisocytosis Moderate; Basophils # (A) 0.1 k/uL (0-0.2); Basophils % (A) 0 %; Eosinophils # (A) 0.1 k/uL (0-0.7); Eosinophils % (A) 1 %; HCT 24.7 % (34.0-46.0); HGB 7.9 gm/dL (11.4-16.0); Hypochromasia Moderate; Lymphocytes # (A) 0.9 k/uL (1.0-4.8); Lymphocytes % (A) 7 %; MCH 30.8 pg (25.0-35.0); MCV 96.1 fL (80.0-100.0); Macrocytosis Slight; Mean Platelet Volume 10.2; Monocytes # (A) 0.6 k/uL (0-1.0); Monocytes % (A) 5 %; Neutrophils # (A) 11.1 k/uL (1.3-7.7); Neutrophils % (A) 86 %; Platelet Count 260 k/uL (150-450); Poikilocytosis Slight; RBC 2.57 m/uL (3.80-5.40); RDW 21.3 % (11.5-15.5); WBC 12.9 k/uL (3.8-10.6)
--- NOTE | 2022-07-04 08:46 | P.PN ---
Subjective Progress Note Date: 07/04/22 Principal diagnosis: Seen with acute kidney injury secondary to cardiorenal syndrome and low blood pressure with severe anemia hemoglobin was 6.8. Also known with chronic kidney disease stage III Baseline creatinine 2. Etiology nephrosclerosis. Patient has history of GI bleed. Is known with COPD on home oxygen with coronary hypertension atrial fibrillation diverticulosis as well as possible cholecystitis Blood pressure remains low in the 90s to 110/58. 24-hour intake and output are not accurately documented. Her's potassium remains low and is not very well explained, one possibility is is being consumed by red blood cell regeneration and intracellular shift. Discontinue her constipation and has complaining of lower abdominal discomfort and wants an enema. She is denying any nausea vomiting. No dysuria frequency. History of present illness: Patient is a 77-year-old female seen in renal consultation for acute kidney injury on chronic kidney disease. Patient has chronic kidney disease stage IIIB with baseline creatinine near 2 secondary to nephrosclerosis and cardiorenal syndrome. Renal function this admission has been fairly stable. Creatinine 2.53 today. Patient presented to the hospital after she sustained a fall and hit her head. Patient was complaining of dizziness with positional changes prior to admission. She was noted to be anemic with hemoglobin of 6.8 and did receive blood transfusion this admission. Hemoglobin 7.6 this morning. She denies any melena or hematochezia. No hematuria. Blood pressure is stable but on the lower side. She is currently on 6 L nasal cannula. Abdominal ultrasound showed normal-sized kidneys without any evidence of hydronephrosis. There was concern for acute cholecystitis. She is being followed by surgery. Patient states she has been voiding. She has history of diastolic CHF. Mild to modera te mitral regurgitation, severe tricuspid regurgitation and pulmonary hypertension. Denies history of diabetes. Denies history of coronary artery disease. Vital signs are stable. Objective - Vital Signs Vital signs: Vital Signs Temp 97.7 F 07/04/22 07:47 Pulse 99 07/04/22 07:47 Resp 18 07/04/22 07:47 BP 110/58 07/04/22 07:47 Pulse Ox 99 07/04/22 07:47 FiO2 Intake & Output 07/03/22 07/04/22 07/04/22 18:59 06:59 18:59 Intake Total 810 Output Total 550 Balance 260 Intake: Oral 810 Output: Urine 550 Other: Voiding Method Bedpan Bedpan # Voids 1 1 # Bowel Movements 2 On examination she is somewhat cachectic HEENT exam no JVP neck is supple no facial asymmetry Lungs are clear to auscultation good air entry bilaterally Heart sounds unremarkable except for atrial fibrillation Abdomen is soft nontender Extremity exam was left leg in cast because of multiple fractures No edema on the right Neurologically awake alert oriented - Labs CBC & Chem 7: 07/02/22 07:47 07/03/22 09:12 Labs: Abnormal Lab Results - Last 24 Hours (Table) 07/03/22 Range/Units 09:12 Sodium 134 L (137-145) mmol/L Potassium 3.3 L (3.5-5.1) mmol/L Chloride 97 L (98-107) mmol/L BUN 122 H* (7-17) mg/dL Creatinine 2.36 H (0.52-1.04) mg/dL Glucose 177 H (74-99) mg/dL Magnesium 2.4 H (1.6-2.3) mg/dL Assessment and Plan Assessment: Assessment: 1. Acute kidney injury secondary to ATN secondary to anemia and cardiorenal syndrome. Renal function fairly stable this admission. Creatinine 2.53, improved to 2.36 as of yesterday last today are pending. No hydronephrosis noted on kidney ultrasound. 2. Chronic kidney disease stage IIIB with baseline creatinine near 2 secondary to nephrosclerosis and cardiorenal syndrome. 3. GI bleed status post blood transfusion. Surgery following. Receiving IV iron. Hemoglobin 7.6 as of 07/02/2022 4. Hypokalemia from poor intake and possibly intracellular shift because of large deficit but cannot rule out some renal losses that needs to be explained if found to be true. She is also on Aranesp 5. Chronic diastolic CHF with mild to moderate mitral regurgitation, severe tricuspid regurgitation and pulmonary hypertension. 6. Severe constipation. 7. Anemia from GI bleed, with iron deficiency saturation is 4, dated 06/29/2022 % Plan: 1. check urine potassium to ensure there is no renal losses 2. Mineral oil enema 3. Pending labs if potassium is less than 3.5 given 40 mg of potassium by mouth 4. Continue Aranesp. 5. Avoid nephrotoxins.Continue to monitor renal function and urine output. Thank you for the consultation. I will continue to follow the patient with you during her hospital stay.
--- NOTE | 2022-07-04 09:38 | P.PN ---
Subjective Progress Note Date: 07/04/22 Principal diagnosis: GI bleeding Patient having crampy abdominal pain this morning. No bowel movement since yesterday. She did eat some of her breakfast. No upper abdominal discomfort. No rectal bleeding. White blood cell count slightly elevated. Hemoglobin stable. Objective - Vital Signs Vital signs: Vital Signs Temp 97.7 F 07/04/22 07:47 Pulse 99 07/04/22 07:47 Resp 18 07/04/22 07:47 BP 110/58 07/04/22 07:47 Pulse Ox 99 07/04/22 07:47 FiO2 Intake & Output 07/03/22 07/04/22 07/04/22 18:59 06:59 18:59 Intake Total 810 Output Total 550 Balance 260 Intake: Oral 810 Output: Urine 550 Other: Voiding Method Bedpan Bedpan # Voids 1 1 # Bowel Movements 2 - Exam Abdomen: Soft, nondistended, mild lower abdominal tenderness, no rebound or guarding - Labs CBC & Chem 7: 07/04/22 06:48 07/04/22 06:48 Labs: Abnormal Lab Results - Last 24 Hours (Table) 07/03/22 07/04/22 07/04/22 Range/Units 09:12 06:48 06:48 WBC 12.9 H (3.8-10.6) k/uL RBC 2.57 L (3.80-5.40) m/uL Hgb 7.9 L (11.4-16.0) gm/dL Hct 24.7 L (34.0-46.0) % RDW 21.3 H (11.5-15.5) % Neutrophils # 11.1 H (1.3-7.7) k/uL Lymphocytes # 0.9 L (1.0-4.8) k/uL Sodium 134 L 134 L (137-145) mmol/L Potassium 3.3 L (3.5-5.1) mmol/L Chloride 97 L (98-107) mmol/L BUN 122 H* 108 H* (7-17) mg/dL Creatinine 2.36 H 2.42 H (0.52-1.04) mg/dL Glucose 177 H 112 H (74-99) mg/dL Magnesium 2.4 H (1.6-2.3) mg/dL Total Bilirubin 2.6 H (0.2-1.3) mg/dL Total Protein 5.7 L (6.3-8.2) g/dL Albumin 3.4 L (3.5-5.0) g/dL Assessment and Plan (1) GI bleed Narrative/Plan: 77-year-old female with GI bleed and crampy abdominal pain. Last CAT scan performed in October of this year. Abdominal x-rays performed a few days ago were not impressive. Since the patient is still having this intermittent lower abdominal crampy pain Will order CT abdomen and pelvis. Current Visit: Yes Status: Acute Code(s): K92.2 - GASTROINTESTINAL HEMORRHAGE, UNSPECIFIED SNOMED Code(s): 48672132
[2022-07-04] MEDS ORDERED: MINERAL OIL 133 ML ENEMA RECTAL STA (10:44)
--- NOTE | 2022-07-04 10:44 | P.PN ---
Subjective HISTORY OF PRESENTING ILLNESS The patient is a 76-year-old female with a known history of mild nonobstructive coronary artery disease, long standing persistent atrial fibrillation on eliquis, severe pulmonary hypertension, severe mitral regurgitation, severe tricuspid regurgitation, PFO, dyslipidemia, history of pulmonary embolism, chronic respiratory failure, and hypertension. She follows we Dr. Goldman. We have been asked to see the patient for elevated troponin. She presents to the hospital with complaints of fall and hit her head. Increased generalized weakness over the past 4 days, lightheadedness. She denies any chest pain. She has chronic shortness of breath, wears 6L O2 at home. She denies any bleeding. Denies any dizziness or syncope or loss of consciousness. On admission patient found to have a hemoglobin of 6.8, potassium 3.0, stool occult blood positive. She was given 1 unit of PRBCs with improvement in her hemoglobin to 7.9. DIAGNOSTICS * EKG reveals atrial fibrillation with HR 86 * Echocardiogram 01/2022 revealed an EF of 50%, severe right ventricular dilatation with severe pulmonary hypertension, severe tricuspid regurgitation, right ventricular apical hypokinesis. * Telemetry tracings indicate atrial fibrillation with controlled ventricular rate * CT brain and cervical spine- no acute intracranial process, no significant change from prior, chronic small vessel ischemic disease, probable bilateral frontal lobe injuries, no evidence of cervical spine fracture, moderate left- sided level degenerative disc disease. Interstitial lung disease changes. * Chest xray cardiomegaly, no obvious heart failure, no pleural effusions. Coarse lung markings. * Laboratory reviewed, WBC 14.2, hemoglobin 7.9, platelets 247,. Sodium 132, potassium 3.0, BUN 152, serum creatinine 2.5, magnesium 2.6, proBNP 11,600 * Current home cardiac medications include Eliquis 2.5mg BID, Sildenafil, Potassium chloride, metoprolol succinate 12.5mg daily, Bumex 2mg BID, atorvastatin 40mg daily. * Cardiac catheterization History: * 11/2018 revealed minimal nonobstructive coronary artery disease, cardiac output 3.4 L, pulmonary artery systolic pressure 48 with a diastolic of 18, mean of 28 mmHg. Right ventricle systolic pressure 15 with end-diastolic of 5. 2 to 3+ mitral regurgitation 07/01 Patient still with significant SOB. No hematochezia or melena. No chest pain or pressure. She did feel somewhat better after blood transfusion yesterday. Hemoglobin this morning 7.4. BUN and creatinine not back yet today however previously extremely elevated 154 with a creatinine mildly 2.5, 2.7. 07/02 Patient seen and examined. Patient denies any abdominal pain. She is still having significant dyspnea. Still has significantly elevated BUN and creatinine and lasix have been on hold. Abdominal ultrasound shows biliary sludge with pericholecystic fluid with gallbladder wall thickening and positive Alicea's sign concerning for cholecystitis. 07/03 Patient seen and examined. Patient still having lower abdominal pain. Admits to mild appetite. Has had some constipation. Blood pressure still borderline 90s over 50s, 100s over 50s. Denies any change in her chronic dyspnea. Creatinine mildly improved 2.3 and BUN 122. Hemoglobin 7.6 07/04 Patient seen and examined. Patient still constipated and possibly receiving en jonathon. BUN mildly improved to 108 and creatinine 2.4. Remains on metoprolol 12.5 mg daily, Midrin and so beneficial with pressures mainly in the 90s to 110s. PHYSICAL EXAMINATION Vitals reviewed CONSTITUTIONAL: No apparent distress. HEENT: Head is normocephalic. Pupils are equal, round. Sclerae anicteric. Mucous membranes of the mouth are moist. No JVD. No carotid bruit. CHEST EXAMINATION: Lungs are clear to auscultation. No chest wall tenderness is noted on palpation or with deep breathing. HEART EXAMINATION: Irregular rate and rhythm. S1, S2 heard. Systolic ejection murmur, +RV heave. ABDOMEN: Soft, nontender. Positive bowel sounds. EXTREMITIES: 2+ peripheral pulses, no lower extremity edema and no calf tenderness. NEUROLOGIC EXAMINATION: Patient is awake, alert and oriented x3. ASSESSMENT Generalized weakness, lightheadedness Anemia with stool occult blood positive Hypokalemia Severe pulmonary hypertension, previous echo 01/2022 with RVSP 123, improved to 75 05/05 however decrease may be related to RV failure History of lung disease Severe Mitral regurgitation Severe tricuspid regurgiation Acute on chronic kidney disease likely secondary to anemia Mild troponin elevation secondary to type II event in a patient with mild CAD in the past Long standing persistent atrial fibrillation s/p previous ablation was anticoagulated in the past, on hold at this time History of hypertension Hypotension PFO Mild CAD by cardiac catheterization in 2019 PLAN Anticoagulation on hold secondary to anemia Monitor Cr, likely some degree of cardiorenal syndrome US findings concerning for acute cholecystitis however having more lower abdominal pain. Patient would be high risk for any surgery and would consider perc drain if indicated. Continue statin, beta thomas and Revatio Continue to hold diuretics with BUN, Cr slowly improving Further recommendations based on clinical course Prerenal azotemia likely related to RV failure unable to adequately supply LV. Concern of advancing biventricular failure Poor prognosis Objective - Vital Signs Vital signs: Vital Signs Temp 97.7 F 07/04/22 07:47 Pulse 99 07/04/22 07:47 Resp 18 07/04/22 07:47 BP 110/58 07/04/22 07:47 Pulse Ox 99 07/04/22 07:47 FiO2 Intake & Output 07/03/22 07/04/22 07/04/22 18:59 06:59 18:59 Intake Total 810 Output Total 550 Balance 260 Intake: Oral 810 Output: Urine 550 Other: Voiding Method Bedpan Bedpan # Voids 1 1 # Bowel Movements 2 - Labs CBC & Chem 7: 07/04/22 06:48 07/04/22 06:48 Labs: Abnormal Lab Results - Last 24 Hours (Table) 07/04/22 07/04/22 Range/Units 06:48 06:48 WBC 12.9 H (3.8-10.6) k/uL RBC 2.57 L (3.80-5.40) m/uL Hgb 7.9 L (11.4-16.0) gm/dL Hct 24.7 L (34.0-46.0) % RDW 21.3 H (11.5-15.5) % Neutrophils # 11.1 H (1.3-7.7) k/uL Lymphocytes # 0.9 L (1.0-4.8) k/uL Sodium 134 L (137-145) mmol/L BUN 108 H* (7-17) mg/dL Creatinine 2.42 H (0.52-1.04) mg/dL Glucose 112 H (74-99) mg/dL Total Bilirubin 2.6 H (0.2-1.3) mg/dL Total Protein 5.7 L (6.3-8.2) g/dL Albumin 3.4 L (3.5-5.0) g/dL
[2022-07-04] MEDS: IOPAMIDOL CONTRAST (ORAL USE) VIAL PO PRN ×2 (10:57→12:05)
--- NOTE | 2022-07-04 11:38 | P.PN ---
Subjective Progress Note Date: 07/04/22 This is a 77-year-old female patient came into the emergency department after she had a fall and she hit her head and this occurred approximately 4 days ago. The patient came in to the emergency as the patient felt extremely weak and lightheaded and she was having difficulty with mobility and standing up. The patient also has chronic shortness of breath and she felt that her shortness of breath was slightly worse and the patient was placed on 6 L O2 nasal cannula. The patient denied having any nausea or vomiting or abdominal pain. The patient denied having any chest pain. No headache. No altered mentation. In the emergency, the patient was found to have no fever and the patient was hemodyn amically stable. EKG showed a normal sinus rhythm without any ST segment elevation. Chest x-ray showed no acute abnormalities. CAT scan of the head and C-spine showed no this of intracranial hemorrhage and no evidence of any C-spine fracture. Nevertheless, the patient was found to have a white cell count of 14.8 with a hemoglobin of 6.8, the patient's BUN was 152 with a creatinine of 2.5 and a sodium level was at 132 and a potassium level was at 3.0. Glucose was at 181. Note that this is an acute of her chronic kidney injury as the patient has chronic stage III kidney disease. The patient's troponin was at 0.07. LFTs were normal. The UA was essentially negative. The chest x-ray showed cardiomegaly with some mild increased pulmonary vascular markings. Otherwise no significant airspace disease. Troponin was at 0.07. The patient is currently admitted to the hospital. She is on normal saline at the rate of 75 mL an hour. Her diuretics were discontinued as the patient was taking Bumex on outpatient basis. The patient also takes Eliquis on outpatient basis for history of ch ronic atrial fibrillation. Noted the patient's cardiac rhythm is nature fibrillation for now and the patient is on metoprolol 12.5 mg by mouth daily and midodrine for chronic hypotension at a dose of 10 mg by mouth 3 times a day. As far as comorbid conditions, the patient has chronic problems with anemia. She has had GI blood loss as the patient has check possible occult stool in the past and she has undergone endoscopies and found to have diverticulosis. She also has previous history of Covid 19 pneumonia back in June 2021, recovered, she has chronic atrial fibrillation, hypertension, chronic severe pulmonary hypertension with a preserved LV function and ejection fraction of 55% and the patient has severe RV enlargement and pulmonary hypertension with a PA pressure of 75 and for that reason she has limited on the right ear an outpatient basis in combination with diuretics. She has COPD, chronic anemia, chronic stage III kidney disease. She has had previous CAT scan of the chest showing emphysema. I believe, the patient follows up with [facility], [facility]. She has been maintained on Advair and DuoNeb nebulized treatments [id number] and she is on oxygen at 6 L/m. on06/30/2022, the patient is being seen for a follow-up. The patient got transfused with a unit of packed RBC and hemoglobin came at 7.7 and she is not showing any subjective signs of GI bleeding. Nevertheless, the patient was found to have low iron level of 21 and I think there is ongoing occult GI bleed probably related to diverticular bleed specially with her long-term and coagulation with Eliquis. Anticoagulation was held for now. At the same time, the patient creatinine has remained stable at 2.7. The patient was receiving gentle hydration. She is resting comfortably in bed. Her outpatient medications been resumed and the patient is currently on Bumex 2 mg by mouth twice a day and she was also restarted on metoprolol 12.5 mg twice a day and she is also on midodrine. Family is at the bedside. No other significant events overnight. The patient was seen by cardiology. No respiratory endoscopy at this point in time. On 07/01/2022, the patient is being seen for a follow-up. The patient is feeling dizziness especially when she stands up and moves around. She is noted to be also borderline hypotensive. I suggested to hold the diuretics today. I also noted that the patient acute on top of any chronic renal failure. The BUN is at 149 with a creatinine of 2.42 which is slightly improved compared to yesterday. Potassium level is low at this to be replaced at 2.5. Sodium is at 133. Noted the patient was started back on her Viagra and diuretics which is in the form of Bumex. She is currently off anticoagulation. No evidence of an acute GI bleed. She is receiving IV iron. Hemoglobin from yesterday was stable at 7.4. Occult stool is positive for blood On 07/02/2022, the patient is relatively stable, blood pressure is improved. The patient was taken off the diuretic and the renal function is stable and the patient's BUN is at 137 with a creatinine of 2.5 without any interval worsening compared to yesterday. Sodium is at 136 with a potassium level of 3.2. Rest of the blood work shows a hemoglobin of 7.6 and the patient continues to receive daily IV iron. She remains off anticoagulants. She is weak. She is lethargic. The patient remains on 6 L of oxygen by nasal cannula. She is having some abdominal pain and based on that and ultrasound of the abdomen was done and showed gallbladder sludge and possible very cholecystic fluid. General surgery be consulted accordingly. The patient has diminished appetite. No fever. No chills. The patient was seen by orthopedic surgery and the patient was found to have a left fourth metatarsal head fracture, nondisplaced, second third and fourth metatarsals and proximal phalanx fracture fourth digit left foot. The patient was also seen by general surgery. It was decided at the lower abdominal pain is unlikely to be related to the ultrasound findings of cholecystitis. 07/03/2022, the patient is doing well. No new complaints. Her hemoglobin is stable. Her renal function is also stable to slightly improved compared to yesterday. She is alert and awake and sitting up on a chair. She is on 6 L O2 nasal cannula. No evidence of GI bleeding. Hemoglobin today is at 7.6. The BUN is 122 with a creatinine of 2.3 and a potassium level is at 3.3. The patient has no other complaints. No nausea or vomiting or emesis. No active issues with pain. No other significant events overnight. Tolerating the diet. Potassium is being replaced. Still off the Bumex. On today's evaluation of 07/04/2022, the patient is stable. The patient has been off anticoagulation. The patient's hemoglobin also, the creatinine is down to 2.4 and is essentially stable for now. The patient is sitting at edge of the bed and the patient is calm and comfortable. No syncope. No signs of any GI bleeding. She was also weaned down to 5 L of oxygen by nasal cannula. Her pulse ox is ranging between 97 and 99%. No significant hypotension. No other new complaints otherwise for now. She remains on midodrine.There is still concern of a cholelithiasis and gallbladder disease. The patient is still having some intermittent lower abdominal crampy pain. Patient was seen by general surgery and the patient was ordered to be given a CAT scan of the abdomen and pelvis. She has issues with constipation on and off. Objective - Vital Signs Vital signs: Vital Signs Temp 97.7 F 07/04/22 07:47 Pulse 99 07/04/22 07:47 Resp 18 07/04/22 07:47 BP 110/58 07/04/22 07:47 Pulse Ox 99 07/04/22 07:47 FiO2 Intake & Output 07/03/22 07/04/22 07/04/22 18:59 06:59 18:59 Intake Total 810 Output Total 550 Balance 260 Intake: Oral 810 Output: Urine 550 Other: Voiding Method Bedpan Bedpan # Voids 1 1 # Bowel Movements 2 - Exam No acute distress, oriented 3. No respiratory distress. No conversational dyspnea or use of accessory muscles. The patient remains on 6 L nasal cannula. Saturations are 99 %. Head exam was generally normal. There was no scleral icterus or corneal arcus. Mucous membranes were moist. HEENT examination is grossly unremarkable. Cardiovascular examination reveals irregular rhythm rate. Irregular S1 and S2 consistent with atrial fibrillation. There is accentuation of the second heart sounds secondary to pulmonary hypertension the patient has a grade 3-4 systolic ejection murmur heard over the left lateral sternal border. There is also some right ventricular heave. Lungs reveal bilateral rhonchi and crackles. No wheezes. Breath sounds are equal bilaterally. Breath sounds are minimally improved. Abdomen soft bowel sounds are heard. No masses or tenderness. Extremities are intact. No cyanosis clubbing or edema. Examination of the skin revealed no evidence of significant rashes, suspicious appearing nevi or other concerning lesions. Neurologically, the patient is awake and alert and the patient does not have any focal neurological deficit. Cranial nerves are essentially intact. - Labs CBC & Chem 7: 07/04/22 06:48 07/04/22 06:48 Labs: Abnormal Lab Results - Last 24 Hours (Table) 07/04/22 07/04/22 Range/Units 06:48 06:48 WBC 12.9 H (3.8-10.6) k/uL RBC 2.57 L (3.80-5.40) m/uL Hgb 7.9 L (11.4-16.0) gm/dL Hct 24.7 L (34.0-46.0) % RDW 21.3 H (11.5-15.5) % Neutrophils # 11.1 H (1.3-7.7) k/uL Lymphocytes # 0.9 L (1.0-4.8) k/uL Sodium 134 L (137-145) mmol/L BUN 108 H* (7-17) mg/dL Creatinine 2.42 H (0.52-1.04) mg/dL Glucose 112 H (74-99) mg/dL Total Bilirubin 2.6 H (0.2-1.3) mg/dL Total Protein 5.7 L (6.3-8.2) g/dL Albumin 3.4 L (3.5-5.0) g/dL Assessment and Plan Plan: Fall, 4 days ago, no skeletal injury, no head trauma, CAT scan of the brain and C-spine were negative.the patient has developed some facial bruising. The patient is currently off anticoagulation. Left foot metatarsal head fractures, nondisplaced digits 2 through 4; proximal phalanx fracture fourth digit left foot, nondisplaced Generalized weakness, multifactorial, obviously anemia is also contributing to his generalized weakness and shortness of breath. Acute on chronic shortness of breath. The patient has severe pulmonary hy pertension and the patient has limited on O2 at 6 L. She also has issues with chronic anemia and the patient has again dropped her hemoglobin down to 6.8. His has been investigated in the past and we think this is a GI loss as the patient is diverticular disease and MD component of iron deficiency anemia. The hemoglobin is stable for now at 7.9 Chronic hypoxic respiratory failure, as the patient is demented on 6 L of oxygen by nasal cannula since 2019. Chronic pulmonary hypertension, with severe dilatation of the RV and significant pulmonary hypertension Abnormal troponin, no acute ischemic EKG changes Acute on chronic kidney disease as the patient is known to have chronic stage III kidney disease and this could be essentially related to dehydration, and the patient's BUN and creatinine is still elevated and the patient remains off diuretics History of chronic atrial fibrillation. Rate is controlled and the patient is Eliquis is long-term anticoagulation hypertension COPD Acute Anemia and patient had EDG/colonoscopy, the patient doesn't transfused with a unit of packed RBC and hemoglobin is stable coronavirus associated pneumonia June 2021, recovered Biliary sludge and cholelithiasis with questionable cholecystitis based on ultrasound findings and the patient continues to have intermittent abdominal pain Plan Chest surgeries on the case CAT scan of the abdomen and pelvis Renal function is stable and the creatinine is at 2.4 Keep diuretics on hold Hemoglobin is stable and there is no evidence of any GI bleeding, hemoglobin is stable Anticoagulation will be placed on hold Gentle hydration, renal function Titrate oxygen flow to maintain a saturation above 90%, currently weaned down to 5 L We'll continue to follow
--- NOTE | 2022-07-04 12:27 | P.PN ---
Subjective Progress Note Date: 07/04/22 Selena Hinton is a 77 yo F with PMH of severe COPD on 6 LPM home O2, pulmonary hypertension, persistent AF on eliquis, CAD, diverticulosis who presented to the ED with increasing weakness and a fall at home. She complains that over the past week she has been feeling weak and shaky, lightheaded when she is up and moving. She notes that a few days ago she fell and hit her head and since then her symptoms have worsened. She denies chest pain, fever, chills, abdominal pain, nausea. She denies melena or hematochezia. On presentation BP 96/50, SpO2 92% on 6 LPM, WBC 14k, Hgb 6.8, BUN 150, Cr 2.5, trop 0.077. CXR with cardiomegaly and correlate for pulmonary fibrosis. 07/01/22. Patient seen and examined. Still states that she does not feel well. Denies any blood in the stools. Still has abdominal pain. Currently on 6 L of oxygen. Hemoglobin this morning is 7.4 07/02/22. Patient seen and examined. Continues to have abdominal pain. Ultrasound of the abdominal and showed gallbladder sludge and possible inflammation. Complaining of left foot pain 07/03. Patient seen and examined. Abdominal pain has improved, no blood in the stools. Currently on clear liquid diet. Surgery has advanced the diet to full liquid. Left foot pain is improved 07/04. This morning patient is complaining of abdominal pain, has loss of appetite. Complaining of nausea and vomiting REVIEW OF SYSTEMS: CONSTITUTIONAL: No fever, no malaise,. CARDIOVASCULAR: No chest pain, no palpitations, no syncope. PULMONARY: Complaining of shortness of breath, no cough, NEUROLOGICAL: No headaches, no weakness, PHYSICAL EXAMINATION: GENERAL: The patient is alert and oriented x3, not in any acute distress. Well developed, well nourished. HEENT: Pupils are round and equally reacting to light. EOMI. No scleral icterus. No conjunctival pallor. Normocephalic, atraumatic. No pharyngeal erythema. No thyromegaly. CARDIOVASCULAR: S1 and S2 present. No murmurs, rubs, or gallops. PULMONARY: Coarse breath some bilaterally. ABDOMEN: No tenderness, no guarding. No palpable organomegaly. MUSCULOSKELETAL: No joint swelling or deformity. EXTREMITIES: No cyanosis, clubbing, or pedal edema. NEUROLOGICAL: Gross neurological examination did not reveal any focal deficits. SKIN: No rashes. Assessment and plan -Acute blood loss anemia -GIB. Suspect diverticular bleed. Elevated troponin, type II NSTEMI. Secondary to anemia. Acute blood loss anemia Atrial fibrillation. COPD on home oxygen. Severe pulmonary hypertension History of lung disease Severe Mitral regurgitation Severe tricuspid regurgiation Acute on chronic kidney disease likely secondary to anemia Left foot metatarsal head fractures, nondisplaced digits 2 through 4; proximal phalanx fracture fourth digit left foot, nondisplaced Abdominal pain,US findings concerning for acute cholecystitis, clinically patient has improved Plan; Monitor electrolytes. Monitor renal functions Monitor CBC. Hold Eliquis for now. Continue Toprol Continue IV iron replacement Continue statin, beta thomas Continue sildenafil 20 mg 3 times daily for pulmonary hypertension US findings concerning for acute cholecystitis. Patient would be high risk for any surgery and would consider perc drain if indicated. Gen. surgery is on board, patient pain has resolved. Surgery has started patient on diet. 07/04, surgery ordered repeat computed tomography scan abdominal pelvis. Orthopedic and medical to the patient for left foot fractures, they recommended conservative treatment with orthopedic boot Follow-up on cardiology recommendations Follow-up on pulmonary recommendations Follow-up on nephrology recommendations, recommend to hold diuretics Objective - Vital Signs Vital signs: Vital Signs Temp 97.7 F 07/04/22 07:47 Pulse 99 07/04/22 07:47 Resp 18 07/04/22 07:47 BP 110/58 07/04/22 07:47 Pulse Ox 99 07/04/22 07:47 FiO2 Intake & Output 07/03/22 07/04/22 07/04/22 18:59 06:59 18:59 Intake Total 810 Output Total 550 Balance 260 Intake: Oral 810 Output: Urine 550 Other: Voiding Method Bedpan Bedpan # Voids 1 1 # Bowel Movements 2 - Labs CBC & Chem 7: 07/04/22 06:48 07/04/22 06:48 Labs: Abnormal Lab Results - Last 24 Hours (Table) 07/04/22 07/04/22 Range/Units 06:48 06:48 WBC 12.9 H (3.8-10.6) k/uL RBC 2.57 L (3.80-5.40) m/uL Hgb 7.9 L (11.4-16.0) gm/dL Hct 24.7 L (34.0-46.0) % RDW 21.3 H (11.5-15.5) % Neutrophils # 11.1 H (1.3-7.7) k/uL Lymphocytes # 0.9 L (1.0-4.8) k/uL Sodium 134 L (137-145) mmol/L BUN 108 H* (7-17) mg/dL Creatinine 2.42 H (0.52-1.04) mg/dL Glucose 112 H (74-99) mg/dL Total Bilirubin 2.6 H (0.2-1.3) mg/dL Total Protein 5.7 L (6.3-8.2) g/dL Albumin 3.4 L (3.5-5.0) g/dL
[2022-07-04] MEDS: METOPROLOL SUCCINATE (ER) 25 MG TAB.ER.24H PO SCH (12:51)
--- NOTE | 2022-07-04 13:25 | CT ---
EXAMINATION TYPE: CT abdomen pelvis wo con DATE OF EXAM: 07/04/2022 COMPARISON: None HISTORY: Abdominal pain CT DLP: 448.3 mGycm Automated exposure control for dose reduction was used. TECHNIQUE: Helical acquisition of images was performed from the lung bases through the pelvis. FINDINGS: The lung bases are clear. The heart is markedly enlarged. There is no organomegaly involving the liver, pancreas, spleen or adrenal glands. There are multiple small gallstones. There are no renal calculi and there is no hydronephrosis. Caliber the abdominal aorta is normal. There is marked diverticulosis of the descending and sigmoid colon. There is no bowel dilatation or o bstruction. There is moderate free fluid scattered throughout the abdomen and into the pelvis. There are surgical absence of the uterus. The osseous structures are intact. IMPRESSION: 1. Moderate ascites. 2. Diverticulosis of the descending and sigmoid colon. 3. No bowel obstruction. 4. Mild cholelithiasis. 5. Marked cardiomegaly
[2022-07-05] MEDS: SUCRALFATE 1 GM TAB PO SCH ×3 (06:34→16:38)
[2022-07-05] MEDS: DOCUSATE 100 MG CAP PO SCH ×2 (08:52→20:02)
[2022-07-05] MEDS: ATORVASTATIN 40 MG TAB PO SCH (08:52)
[2022-07-05] MEDS: polyethylene glycoL 3350 17 GM POWD.PACK PO SCH ×2 (08:52→20:02)
[2022-07-05] MEDS: SILDENAFIL 20 MG TAB PO SCH ×3 (08:52→20:07)
[2022-07-05] MEDS: MIDODRINE 5 MG TAB PO SCH ×3 (08:52→20:02)
[2022-07-05] MEDS: PANTOPRAZOLE 40 MG/10 ML VIAL IVP SCH ×2 (08:53→20:02)
[2022-07-05] MEDS: SYMBICORT 160-4.5 MCG INHALER INHALATION SCH ×2 (09:16→20:05)
--- NOTE | 2022-07-05 09:17 | PN ---
PROGRESS NOTE SUBJECTIVE: Selena is a lady with history of mild non-obstructive coronary artery disease, long-standing, persistent atrial fibrillation, severe pulmonary hypertension, and severe mitral regurgitation, comes to the hospital with symptoms of having had a fall, mildly elevated troponin, and generalized weakness. She is in atrial fibrillation with controlled ventricular rate, was not in overt heart failure on her initial presentation. She is in renal failure. This morning, she denies any chest pain or difficulty in breathing. OBJECTIVE: VITAL SIGNS: Afebrile, heart rate is 96 beats per minute, blood pressure 96/50, respiratory rate is 18, O2 saturation is 73% on 3 L. NECK: There is no jugular venous distention. CHEST: Reveals diminished air entry at the bases. HEART: Reveals first and second heart sounds and a systolic murmur at the apex. ABDOMEN: Soft. EXTREMITIES: Reveals mild edema. LABORATORY DATA: Show a BUN of 108, creatinine of 2.4, potassium is 4.1. Hemoglobin is 7.9. ASSESSMENT AND PLAN: 1. Persistent atrial fibrillation with controlled ventricular rate. 2. Acute on chronic kidney failure. 3. Acute worsening of the chronic shortness of breath related to underlying pulmonary hypertension. 4. Left foot metatarsal head fracture. The patient is currently on Lipitor, Toprol-XL, and sildenafil, which I am going to continue. Liannais is on hold because of history of fall prior to coming in. MMODL / IJN: [id number] /
[2022-07-05] MEDS: SODIUM FERRIC GLUCONAT-SUCROSE 125 MG in SODIUM CHLORIDE 0.9% 100 ML IVPB SCH (10:15)
[2022-07-05] MEDS: ACETAMINOPHEN TAB 325 MG TAB PO PRN (10:15)
[2022-07-05 10:38] LABS: Anisocytosis Moderate; Basophils % (A) 0 %; Eosinophils # (A) 0.1 k/uL (0-0.7); Eosinophils % (A) 1 %; HCT 25.8 % (34.0-46.0); HGB 8.2 gm/dL (11.4-16.0); Hypochromasia Marked; Lymphocytes # (A) 0.9 k/uL (1.0-4.8); Lymphocytes % (A) 6 %; MCH 31.2 pg (25.0-35.0); MCHC 31.7 g/dL (31.0-37.0); MCV 98.6 fL (80.0-100.0); Macrocytosis Moderate; Mean Platelet Volume 9.5; Monocytes # (A) 0.6 k/uL (0-1.0); Monocytes % (A) 4 %; Neutrophils # (A) 12.5 k/uL (1.3-7.7); Neutrophils % (A) 88 %; Platelet Count 256 k/uL (150-450); Poikilocytosis Slight; RBC 2.62 m/uL (3.80-5.40); RDW 21.8 % (11.5-15.5); WBC 14.2 k/uL (3.8-10.6)
[2022-07-05 10:40] LABS: Albumin 3.5 g/dL (3.5-5.0); Calcium 8.9 mg/dL (8.4-10.2); Potassium 4.1 mmol/L (3.5-5.1); Total Bilirubin 2.4 mg/dL (0.2-1.3); Total Protein 5.7 g/dL (6.3-8.2)
--- NOTE | 2022-07-05 11:37 | P.PN ---
Subjective Patient is seen for follow-up for acute kidney injury and top of chronic kidney disease. She has C daily stage III with baseline creatinine around 2 mg/dL secondary to nephrosclerosis. Patient was admitted to the hospital with increased weakness low blood pressure and severe anemia with hemoglobin of 6.8 g/dL. She has underlying GI bleed. Serum creatinine decreased to 2.2 mg/dL today. No significant complaints Systolic blood pressure staying in the 90s. Currently asymptomatic Objective - Vital Signs Vital signs: Vital Signs Temp 98.1 F 07/05/22 04:00 Pulse 100 07/05/22 08:51 Resp 20 07/05/22 08:51 BP 99/55 07/05/22 08:51 Pulse Ox 90 L 07/05/22 08:51 FiO2 Intake & Output 07/04/22 07/05/22 07/05/22 18:59 06:59 18:59 Intake Total 240 Output Total 200 Balance -200 240 Intake: Oral 240 Output: Urine 200 Other: Voiding Method Bedpan Bedpan Bedpan # Voids 1 4 # Bowel Movements 1 2 - Exam Patient is awake, comfortable, in no acute distress Examination of the heart S1 and S2 Examination lungs decreased breath sounds at the bases Abdomen is soft nontender Examination lower extremity shows chronic skin changes, no significant edema noted [employer] exam grossly intact - Labs CBC & Chem 7: 07/05/22 09:45 07/05/22 09:45 Labs: Abnormal Lab Results - Last 24 Hours (Table) 07/05/22 07/05/22 Range/Units 09:45 09:45 WBC 14.2 H (3.8-10.6) k/uL RBC 2.62 L (3.80-5.40) m/uL Hgb 8.2 L (11.4-16.0) gm/dL Hct 25.8 L (34.0-46.0) % RDW 21.8 H (11.5-15.5) % Neutrophils # 12.5 H (1.3-7.7) k/uL Lymphocytes # 0.9 L (1.0-4.8) k/uL Sodium 136 L (137-145) mmol/L BUN 98 H (7-17) mg/dL Creatinine 2.25 H (0.52-1.04) mg/dL Glucose 155 H (74-99) mg/dL Total Bilirubin 2.4 H (0.2-1.3) mg/dL Total Protein 5.7 L (6.3-8.2) g/dL Assessment and Plan Assessment: 1. Acute kidney injury secondary to ATN secondary to anemia and cardiorenal syndrome. Renal function fairly stable this admission. Creatinine 2.53, improved to 2.2. No hydronephrosis noted on kidney ultrasound. 2. Chronic kidney disease stage IIIB with baseline creatinine near 2 secondary to nephrosclerosis and cardiorenal syndrome. 3. GI bleed status post blood transfusion. Surgery following. Receiving IV iron. Hemoglobin 7.6 as of 07/02/2022 4. Hypokalemia from poor intake and possibly intracellular shift because of large deficit. She is also on Aranesp 5. Chronic diastolic CHF with mild to moderate mitral regurgitation, severe tricuspid regurgitation and pulmonary hypertension. 6. Severe constipation. 7. Anemia from GI bleed, with iron deficiency saturation is 4, dated 06/29/2022, maintained on IV iron Plan: Continue Aranesp Monitor electrolytes.
[2022-07-05] MEDS ORDERED: IOPAMIDOL CONTRAST (ORAL USE) VIAL PO PRN (11:54)
[2022-07-05] MEDS: METOPROLOL SUCCINATE (ER) 25 MG TAB.ER.24H PO SCH (12:27)
--- NOTE | 2022-07-05 13:30 | P.PN ---
Subjective Progress Note Date: 07/05/22 CHIEF COMPLAINT: GI bleed HISTORY OF PRESENT ILLNESS: This is a 5-year-old female who initially was admit bo after a fall and hitting her head. Surgical service consulted in regards to her anemia and GI bleed. Patient has had no further bleeding for the last 2 days. She had multiple stools yesterday after being given MiraLAX and Fleet enema. She does complaining of increase in lower abdominal pain. She had worsening in her pain after drinking milk. She had evidence of sludge with pericholecystic fluid, gallbladder wall thickening, gallstones and positive Alicea sign on abdominal ultrasound. Computed tomography scan without contrast had shown moderate ascites diverticulosis and mild gallstones. Afebrile WBC is up from 12.9-14.2 hemoglobin 7.9-8.2 platelets 256 sodium is 136 potassium is 4.1 creatinine is 2.25 total bilirubin 2.4 AST 23 ALT 18 alk phos 94 Patient seen and examined with Dr. cao PHYSICAL EXAM: VITAL SIGNS: Reviewed. GENERAL: Well-developed in no acute distress. HEENT: No sclera icterus. Extraocular movements grossly intact. Moist buccal mucosa. Head is atraumatic, normocephalic. ABDOMEN: Soft. Nondistended. Tenderness to palpation of the right upper q uadrant and left lower quadrant NEUROLOGIC: Alert and oriented. Cranial nerves II through XII grossly intact. ASSESSMENT: 1. Abdominal pain 2. GI bleed now resolved 3. Possible Acute cholecystitis. Right upper quadrant abdominal pain with sludge, Perclose fluid, gallbladder thickening and gallstones with positive Alicea sign on ultrasound. 4. Constipation improved 5. History of diverticulosis PLAN: -Repeat Computed tomography scan abdomen and pelvis with oral contrast for further evaluation in increased abdominal pain -Diet adjusted to lactose free foods and low fat -Added Zosyn for leukocytosis and possible acute cholecystitis -Continue to hold [facility] Physician Electronics Engineering Manager note has been reviewed by physician. Signing provider agrees with the documented findings, assessment, and plan of care. Objective - Vital Signs Vital signs: Vital Signs Temp 98.1 F 07/05/22 04:00 Pulse 100 07/05/22 08:51 Resp 20 07/05/22 08:51 BP 99/55 07/05/22 08:51 Pulse Ox 90 L 07/05/22 08:51 FiO2 Intake & Output 07/04/22 07/05/22 07/05/22 18:59 06:59 18:59 Intake Total 240 Output Total 200 Balance -200 240 Intake: Oral 240 Output: Urine 200 Other: Voiding Method Bedpan Bedpan Bedpan # Voids 1 4 # Bowel Movements 1 2 - Labs CBC & Chem 7: 07/05/22 09:45 07/05/22 09:45 Labs: Abnormal Lab Results - Last 24 Hours (Table) 07/05/22 07/05/22 Range/Units 09:45 09:45 WBC 14.2 H (3.8-10.6) k/uL RBC 2.62 L (3.80-5.40) m/uL Hgb 8.2 L (11.4-16.0) gm/dL Hct 25.8 L (34.0-46.0) % RDW 21.8 H (11.5-15.5) % Neutrophils # 12.5 H (1.3-7.7) k/uL Lymphocytes # 0.9 L (1.0-4.8) k/uL Sodium 136 L (137-145) mmol/L BUN 98 H (7-17) mg/dL Creatinine 2.25 H (0.52-1.04) mg/dL Glucose 155 H (74-99) mg/dL Total Bilirubin 2.4 H (0.2-1.3) mg/dL Total Protein 5.7 L (6.3-8.2) g/dL
[2022-07-05 13:48] VITALS: BMI 19.5
[2022-07-05] MEDS: PIPERACILLIN-TAZOBACTAM 3.375 GM in SODIUM CHLORIDE 0.9% 100 ML IVPB SCH ×2 (16:38→20:45)
--- NOTE | 2022-07-05 18:12 | P.PN ---
Subjective Progress Note Date: 07/05/22 H&P Date: 06/30/22 Chief Complaint: fall, weakness Selena Hinton is a 77 yo F with PMH of severe COPD on 6 LPM home O2, pulmonary hypertension, persistent AF on eliquis, CAD, diverticulosis who presented to the ED with increasing weakness and a fall at home. She complains that over the past week she has been feeling weak and shaky, lightheaded when she is up and moving. She notes that a few days ago she fell and hit her head and since then her symptoms have worsened. She denies chest pain, fever, chills, abdominal pain, nausea. She denies melena or hematochezia. On presentation BP 96/50, SpO2 92% on 6 LPM, WBC 14k, Hgb 6.8, BUN 150, Cr 2.5, trop 0.077. CXR with cardiomegaly and correlate for pulmonary fibrosis. 07/05/2022 constipation improved, placed on both Colace and MiraLAX, now reporting positive bowel movements. Reports pain with eating . No abdominal pain to palpation.Complains of left foot, first 3 metatarsals pain.Boot is off at the bedside. Denies chest pain, palpitations or shortness of breath. Reports nonproductive cough. Blood pressure soft, Labs pending. Objective - Vital Signs Vital signs: Vital Signs Temp 98.0 F 07/05/22 16:45 Pulse 101 H 07/05/22 16:45 Resp 18 07/05/22 16:45 BP 90/54 07/05/22 16:45 Pulse Ox 93 L 07/05/22 16:45 FiO2 Intake & Output 07/04/22 07/05/22 07/05/22 18:59 06:59 18:59 Intake Total 240 Output Total 200 Balance -200 240 Weight 49.895 kg Intake: Oral 240 Output: Urine 200 Other: Voiding Method Bedpan Bedpan Bedpan # Voids 1 4 2 # Bowel Movements 1 2 - Exam General: well nourished, well developed, NAD. Vitals reviewed Eyes: PERRL, EOMI, conjunctiva normal HENT: normocephalic, mucus membranes moist Neck: supple, no JVD Lungs: normal respiratory effort. Wheezing present. No rales or rhonchi. CV: Regular rate and rhythm, no murmur. Peripheral pulses 2+ Abdomen: soft, nondistended, nontender, no organomegaly,+BS Skin: warm and dry. Neuro: A&Ox3, normal mood and affect. - Labs CBC & Chem 7: 07/05/22 09:45 07/05/22 09:45 Labs: Abnormal Lab Results - Last 24 Hours (Table) 07/05/22 07/05/22 Range/Units 09:45 09:45 WBC 14.2 H (3.8-10.6) k/uL RBC 2.62 L (3.80-5.40) m/uL Hgb 8.2 L (11.4-16.0) gm/dL Hct 25.8 L (34.0-46.0) % RDW 21.8 H (11.5-15.5) % Neutrophils # 12.5 H (1.3-7.7) k/uL Lymphocytes # 0.9 L (1.0-4.8) k/uL Sodium 136 L (137-145) mmol/L BUN 98 H (7-17) mg/dL Creatinine 2.25 H (0.52-1.04) mg/dL Glucose 155 H (74-99) mg/dL Total Bilirubin 2.4 H (0.2-1.3) mg/dL Total Protein 5.7 L (6.3-8.2) g/dL Assessment and Plan Assessment: Acute blood loss anemia secondary to GI bleed, suspect diverticular bleed, status post transfusion of packed RBCs, iron deficient. Abdominal pain, Biliary sludge, cholelithiasis with possible cholecystitis, surgery following Elevated troponin, type II NSTEMI, Atrial fibrillation, chronic Acute on Chronic hypoxic respiratory failure Chronic diastolic CHF, multivalvular disease, severe pulmonary hypertension Recent fall, Left foot metatarsal head fractures, nondisplaced digits 2 through 4; proximal phalanx fracture fourth digit left foot, nondisplaced Generalized weakness, multifactorial COPD COVID pneumonia 06/28 Acute on chronic kidney disease III, secondary to dehydration, cardiorenal syndrome Hyperkalemia, resolved Hypertension Plan: Continue on current medication regime ,monitoring and symptomatic treatment. Labs pending. Anticoagulation/Eliquis remains on hold. Repeat abdomen and pelvis CT recommended per surgery. Empiric antibiotics for possible cholecystitis. Continue on IV iron .Close monitoring of renal function The impression and plan of care has been dictated as directed. : I performed a history and examination of this patient, discussed the same with the dictator. I agree with the dictator's note ,documented as a scribe. Any additional findings or plans will be noted.
[2022-07-06] MEDS: SUCRALFATE 1 GM TAB PO SCH ×3 (06:28→16:19)
[2022-07-06] MEDS: SYMBICORT 160-4.5 MCG INHALER INHALATION SCH ×2 (07:17→22:17)
[2022-07-06 09:00] LABS: Albumin 3.2 g/dL (3.5-5.0); Calcium 8.6 mg/dL (8.4-10.2); Potassium 3.7 mmol/L (3.5-5.1); Total Bilirubin 2.3 mg/dL (0.2-1.3); Total Protein 5.4 g/dL (6.3-8.2)
[2022-07-06] MEDS: ATORVASTATIN 40 MG TAB PO SCH (09:16)
[2022-07-06] MEDS: MIDODRINE 5 MG TAB PO SCH ×3 (09:16→20:10)
[2022-07-06] MEDS: ACETAMINOPHEN TAB 325 MG TAB PO PRN (09:16)
[2022-07-06] MEDS: SILDENAFIL 20 MG TAB PO SCH ×3 (09:16→20:18)
[2022-07-06] MEDS: SODIUM FERRIC GLUCONAT-SUCROSE 125 MG in SODIUM CHLORIDE 0.9% 100 ML IVPB SCH (09:16)
[2022-07-06 09:24] LABS: Anisocytosis Moderate; Basophils # (A) 0.1 k/uL (0-0.2); Basophils % (A) 0 %; Eosinophils # (A) 0.1 k/uL (0-0.7); Eosinophils % (A) 1 %; HCT 25.8 % (34.0-46.0); HGB 7.9 gm/dL (11.4-16.0); Hypochromasia Marked; Lymphocytes # (A) 0.9 k/uL (1.0-4.8); Lymphocytes % (A) 7 %; MCH 30.7 pg (25.0-35.0); MCHC 30.7 g/dL (31.0-37.0); MCV 99.9 fL (80.0-100.0); Macrocytosis Moderate; Monocytes # (A) 0.5 k/uL (0-1.0); Monocytes % (A) 3 %; Neutrophils # (A) 11.7 k/uL (1.3-7.7); Neutrophils % (A) 88 %; Platelet Count 266 k/uL (150-450); Poikilocytosis Slight; RBC 2.58 m/uL (3.80-5.40); RDW 21.3 % (11.5-15.5); WBC 13.3 k/uL (3.8-10.6)
--- NOTE | 2022-07-06 11:21 | P.PN ---
Subjective Patient is seen for follow-up for acute kidney injury and top of chronic kidney disease. She has C daily stage III with baseline creatinine around 2 mg/dL secondary to nephrosclerosis. Patient was admitted to the hospital with increased weakness low blood pressure and severe anemia with hemoglobin of 6.8 g/dL. She has underlying GI bleed. Serum creatinine staying at about 2.2 mg/dL Complaining of abdominal pain Systolic blood pressure staying in the 90s. Currently asymptomatic Objective - Vital Signs Vital signs: Vital Signs Temp 97.9 F 07/06/22 09:24 Pulse 74 07/06/22 09:24 Resp 18 07/06/22 09:24 BP 95/55 07/06/22 09:24 Pulse Ox 96 07/06/22 09:24 FiO2 Intake & Output 07/05/22 07/06/22 07/06/22 18:59 06:59 18:59 Intake Total 240 500 Balance 240 500 Weight 49.895 kg Intake: Oral 240 500 Other: Voiding Method Bedpan Bedpan Bedpan # Voids 2 2 1 # Bowel Movements 1 - Exam Patient is awake, comfortable, in no acute distress Examination of the heart S1 and S2 Examination lungs decreased breath sounds at the bases Abdomen is soft nontender Examination lower extremity shows chronic skin changes, no significant edema noted TRUCKSMITH exam grossly intact - Labs CBC & Chem 7: 07/06/22 07:35 07/06/22 07:35 Labs: Abnormal Lab Results - Last 24 Hours (Table) 07/06/22 07/06/22 Range/Units 07:35 07:35 WBC 13.3 H (3.8-10.6) k/uL RBC 2.58 L (3.80-5.40) m/uL Hgb 7.9 L (11.4-16.0) gm/dL Hct 25.8 L (34.0-46.0) % MCHC 30.7 L (31.0-37.0) g/dL RDW 21.3 H (11.5-15.5) % Neutrophils # 11.7 H (1.3-7.7) k/uL Lymphocytes # 0.9 L (1.0-4.8) k/uL Sodium 136 L (137-145) mmol/L BUN 88 H (7-17) mg/dL Creatinine 2.29 H (0.52-1.04) mg/dL Glucose 151 H (74-99) mg/dL Total Bilirubin 2.3 H (0.2-1.3) mg/dL Total Protein 5.4 L (6.3-8.2) g/dL Albumin 3.2 L (3.5-5.0) g/dL Assessment and Plan Assessment: 1. Acute kidney injury secondary to ATN secondary to anemia and cardiorenal syndrome. Renal function fairly stable this admission. Creatinine 2.53, improved to 2.2. No hydronephrosis noted on kidney ultrasound. 2. Chronic kidney disease stage IIIB with baseline creatinine near 2 secondary to nephrosclerosis and cardiorenal syndrome. 3. GI bleed status post blood transfusion. Surgery following. Receiving IV iron. Hemoglobin 7.6 as of 07/02/2022 4. Hypokalemia from poor intake and possibly intracellular shift because of large deficit. She is also on Aranesp 5. Chronic diastolic CHF with mild to moderate mitral regurgitation, severe tricuspid regurgitation and pulmonary hypertension. 6. Severe constipation. 7. Anemia from GI bleed, with iron deficiency saturation is 4, dated 06/29/2022, maintained on IV iron Plan: Continue Aranesp Monitor electrolytes.
[2022-07-06] MEDS ORDERED: SIMETHICONE 80 MG CHEWABLE PO PRN (11:45)
[2022-07-06] MEDS: DOCUSATE 100 MG CAP PO SCH ×2 (12:11→20:10)
[2022-07-06] MEDS: PIPERACILLIN-TAZOBACTAM 3.375 GM in SODIUM CHLORIDE 0.9% 100 ML IVPB SCH ×2 (12:19→20:11)
[2022-07-06] MEDS: METOPROLOL SUCCINATE (ER) 25 MG TAB.ER.24H PO SCH (12:19)
[2022-07-06] MEDS: LACTOBACILLUS ACIDOPH & BULGAR 1 EACH PACKET PO SCH ×3 (12:25→20:10)
[2022-07-06] MEDS: PANTOPRAZOLE 40 MG/10 ML VIAL IVP SCH ×2 (12:25→20:10)
--- NOTE | 2022-07-06 13:33 | P.PN ---
Subjective Progress Note Date: 07/06/22 CHIEF COMPLAINT: GI bleed HISTORY OF PRESENT ILLNESS: Surgical service consulted in regards to her anemia and GI bleed. Patient lying in bed comfortably. She reports no further bleeding. She is having bowel movements. On she complains of suprapubic abdominal pain. Denies any nausea or vomiting. Afebrile. WBC is down from 14.2-13.3 hemoglobin stable at 7.9 platelets 266 sodium 136 potassium 3.7 c reatinine 2.29. Patient has been receiving IV iron Patient seen and examined with Dr. cao PHYSICAL EXAM: VITAL SIGNS: Reviewed. GENERAL: Well-developed in no acute distress. HEENT: No sclera icterus. Extraocular movements grossly intact. Moist buccal mucosa. Head is atraumatic, normocephalic. ABDOMEN: Soft. Nondistended. Tenderness to palpation of the right upper quadrant and suprapubic area NEUROLOGIC: Alert and oriented. Cranial nerves II through XII grossly intact. ASSESSMENT: 1. Abdominal pain 2. GI bleed now resolved 3. Acute on chronic cholecystitis. Right upper quadrant abdominal pain with sludge, pericholecystic fluid, gallbladder thickening and gallstones with positive Alicea sign on ultrasound. 4. Constipation improved 5. History of diverticulosis PLAN: -Recommend laparoscopic cholecystectomy when medically stable -Continue to hold Eliquis -Continue supportive care -Continue PPI -Continue low-fat diet Physician Aprn note has been reviewed by physician. Signing provider agrees with the documented findings, assessment, and plan of care. Objective - Vital Signs Vital signs: Vital Signs Temp 98.0 F 07/06/22 12:00 Pulse 77 07/06/22 12:00 Resp 18 07/06/22 12:00 BP 90/52 07/06/22 12:00 Pulse Ox 95 07/06/22 12:00 FiO2 Intake & Output 07/05/22 07/06/22 07/06/22 18:59 06:59 18:59 Intake Total 240 500 Balance 240 500 Weight 49.895 kg Intake: Oral 240 500 Other: Voiding Method Bedpan Bedpan Bedpan # Voids 2 2 1 # Bowel Movements 1 - Labs CBC & Chem 7: 07/06/22 07:35 07/06/22 07:35 Labs: Abnormal Lab Results - Last 24 Hours (Table) 11/29/22 11/29/22 Range/Units 07:35 07:35 WBC 13.3 H (3.8-10.6) k/uL RBC 2.58 L (3.80-5.40) m/uL Hgb 7.9 L (11.4-16.0) gm/dL Hct 25.8 L (34.0-46.0) % MCHC 30.7 L (31.0-37.0) g/dL RDW 21.3 H (11.5-15.5) % Neutrophils # 11.7 H (1.3-7.7) k/uL Lymphocytes # 0.9 L (1.0-4.8) k/uL Sodium 136 L (137-145) mmol/L BUN 88 H (7-17) mg/dL Creatinine 2.29 H (0.52-1.04) mg/dL Glucose 151 H (74-99) mg/dL Total Bilirubin 2.3 H (0.2-1.3) mg/dL Total Protein 5.4 L (6.3-8.2) g/dL Albumin 3.2 L (3.5-5.0) g/dL
--- NOTE | 2022-07-06 14:36 | P.PN ---
Subjective Progress Note Date: 07/06/22 H&P Date: 06/30/22 Chief Complaint: fall, weakness Selena Hinton is a 77 yo F with PMH of severe COPD on 6 LPM home O2, pulmonary hypertension, persistent AF on eliquis, CAD, diverticulosis who presented to the ED with increasing weakness and a fall at home. She complains that over the past week she has been feeling weak and shaky, lightheaded when she is up and moving. She notes that a few days ago she fell and hit her head and since then her symptoms have worsened. She denies chest pain, fever, chills, abdominal pain, nausea. She denies melena or hematochezia. On presentation BP 96/50, SpO2 92% on 6 LPM, WBC 14k, Hgb 6.8, BUN 150, Cr 2.5, trop 0.077. CXR with cardiomegaly and correlate for pulmonary fibrosis. 07/05/2022 constipation improved, placed on both Colace and MiraLAX, now reporting positive bowel movements. Reports pain with eating . No abdominal pain to palpation.Complains of left foot, first 3 metatarsals pain.Boot is off at the bedside. Denies chest pain, palpitations or shortness of breath. Reports nonproductive cough. Blood pressure soft, Labs pending. 07/06/2022 maintained on Zosyn for suspected cholecystitis. complains of fluctuating suprapubic, left lower quadrant abdominal pain. Reports Partial small bowel movement yesterday, nonbloody. Denies any nausea, vomiting. Blood pressure soft.Renal function improving with BUN 88, creatinine 2.29, hemoglobin stable at 7.9. Receiving IV Venofer. Objective - Vital Signs Vital signs: Vital Signs Temp 98.0 F 07/06/22 12:00 Pulse 77 07/06/22 12:00 Resp 18 07/06/22 12:00 BP 90/52 07/06/22 12:00 Pulse Ox 95 07/06/22 12:00 FiO2 Intake & Output 07/05/22 07/06/22 07/06/22 18:59 06:59 18:59 Intake Total 240 500 Balance 240 500 Weight 49.895 kg Intake: Oral 240 500 Other: Voiding Method Bedpan Bedpan Bedpan # Voids 2 2 1 # Bowel Movements 1 - Exam General: Sitting up in bed, no acute distress, vital signs reviewed Eyes: PERRL, EOMI, conjunctiva normal HENT: normocephalic, mucus membranes moist Neck: supple, no JVD Lungs: normal respiratory effort. CV: Regular rate and rhythm, no murmur. Peripheral pulses 2+ Abdomen: soft, nondistended, suprapubic, left lower quadrant tenderness, no organomegaly,+BS Skin: warm and dry. Neuro: A&Ox3, normal mood and affect. - Labs CBC & Chem 7: 07/06/22 07:35 07/06/22 07:35 Labs: Abnormal Lab Results - Last 24 Hours (Table) 07/06/22 07/06/22 Range/Units 07:35 07:35 WBC 13.3 H (3.8-10.6) k/uL RBC 2.58 L (3.80-5.40) m/uL Hgb 7.9 L (11.4-16.0) gm/dL Hct 25.8 L (34.0-46.0) % MCHC 30.7 L (31.0-37.0) g/dL RDW 21.3 H (11.5-15.5) % Neutrophils # 11.7 H (1.3-7.7) k/uL Lymphocytes # 0.9 L (1.0-4.8) k/uL Sodium 136 L (137-145) mmol/L BUN 88 H (7-17) mg/dL Creatinine 2.29 H (0.52-1.04) mg/dL Glucose 151 H (74-99) mg/dL Total Bilirubin 2.3 H (0.2-1.3) mg/dL Total Protein 5.4 L (6.3-8.2) g/dL Albumin 3.2 L (3.5-5.0) g/dL Assessment and Plan Assessment: Acute blood loss anemia secondary to GI bleed, suspect diverticular bleed, status post transfusion of packed RBCs, iron deficient. Abdominal pain, Biliary sludge, cholelithiasis with possible cholecystitis, constipation Elevated troponin, type II NSTEMI, Atrial fibrillation, chronic Acute on Chronic hypoxic respiratory failure Chronic diastolic CHF, multivalvular disease, severe pulmonary hypertension Recent fall, Left foot metatarsal head fractures, nondisplaced digits 2 through 4; proximal phalanx fracture fourth digit left foot, nondisplaced Generalized weakness, multifactorial COPD COVID pneumonia 06/28 Acute on chronic kidney disease III, secondary to dehydration, cardiorenal syndrome Hyperkalemia, resolved Hypertension Plan: Continue on current medication regime ,monitoring and symptomatic treatment. MiraLAX frequency increased, Lactinex and simethicone added to med regimen. Eliquis remains on hold. Maintain antibiotics for possible cholecystitis. IV iron,PPI, Aranesp. Continue Close monitoring of renal function. The impression and plan of care has been dictated as directed. : I performed a history and examination of this patient, discussed the same with the dictator. I agree with the dictator's note ,documented as a scribe. Any additional findings or plans will be noted.
[2022-07-06] MEDS: polyethylene glycoL 3350 17 GM POWD.PACK PO SCH ×3 (16:19→22:21)
--- NOTE | 2022-07-06 23:21 | PN ---
PROGRESS NOTE HISTORY OF PRESENT ILLNESS: Selena is a 77-year-old lady with multiple medical problems, including persistent atrial fibrillation, severe pulmonary hypertension, severe mitral regurgitation. We had admitted to hospital with fall, generalized weakness, and mild elevated troponin. She remains in atrial fibrillation with controlled ventricular rate. This morning, she denies any chest pain or difficulty in breathing. PHYSICAL EXAMINATION: VITAL SIGNS: Heart rate is 74 beats per minute, blood pressure 95/55, respiratory rate is 18, O2 saturation is 96% on 4 L. NECK: There is no jugular venous distention. CHEST: Reveals diminished air entry at the bases. HEART: Reveals first and second heart sounds, a pansystolic murmur at the apex. ABDOMEN: Soft. EXTREMITIES: Revealed mild edema. Peripheral pulses are felt. LABORATORY DATA: Labs show that BUN is 88, creatinine is 2.2, hemoglobin is 7.9. Renal functions have improved. Currently on Lipitor, Toprol-XL. ASSESSMENT: 1. Persistent atrial fibrillation with controlled ventricular rate. 2. Acute on chronic renal failure. 3. Pulmonary hypertension. 4. Left foot metatarsal head fracture. PLAN: She is going to continue current medications. We will hold on Eliquis because of the history of fall. MMODL / IJN: [id number] /
[2022-07-07] MEDS: SUCRALFATE 1 GM TAB PO SCH ×3 (06:21→16:27)
[2022-07-07] MEDS: SYMBICORT 160-4.5 MCG INHALER INHALATION SCH ×2 (07:49→21:10)
[2022-07-07 08:55] LABS: Anisocytosis Moderate; Basophils # (A) 0.1 k/uL (0-0.2); Basophils % (A) 1 %; Eosinophils # (A) 0.1 k/uL (0-0.7); Eosinophils % (A) 1 %; HCT 27.6 % (34.0-46.0); HGB 8.6 gm/dL (11.4-16.0); Hypochromasia Marked; Lymphocytes # (A) 1.1 k/uL (1.0-4.8); Lymphocytes % (A) 9 %; MCH 31.3 pg (25.0-35.0); MCHC 31.2 g/dL (31.0-37.0); MCV 100.3 fL (80.0-100.0); Macrocytosis Moderate; Mean Platelet Volume 9.3; Monocytes # (A) 0.5 k/uL (0-1.0); Monocytes % (A) 4 %; Neutrophils # (A) 10.7 k/uL (1.3-7.7); Neutrophils % (A) 85 %; Platelet Count 254 k/uL (150-450); Poikilocytosis Slight; RBC 2.75 m/uL (3.80-5.40); RDW 21.3 % (11.5-15.5); WBC 12.6 k/uL (3.8-10.6)
[2022-07-07 09:14] LABS: Potassium 3.5 mmol/L (3.5-5.1)
[2022-07-07 09:15] LABS: Calcium 8.7 mg/dL (8.4-10.2)
[2022-07-07] MEDS: LACTOBACILLUS ACIDOPH & BULGAR 1 EACH PACKET PO SCH ×3 (09:17→20:30)
[2022-07-07] MEDS: DOCUSATE 100 MG CAP PO SCH ×2 (09:17→20:30)
[2022-07-07] MEDS: polyethylene glycoL 3350 17 GM POWD.PACK PO SCH ×3 (09:17→20:30)
[2022-07-07] MEDS: MIDODRINE 5 MG TAB PO SCH ×3 (09:17→20:30)
[2022-07-07] MEDS: ATORVASTATIN 40 MG TAB PO SCH (09:17)
[2022-07-07] MEDS: ACETAMINOPHEN TAB 325 MG TAB PO PRN ×2 (09:17→16:26)
[2022-07-07] MEDS: PANTOPRAZOLE 40 MG/10 ML VIAL IVP SCH ×2 (09:18→20:30)
[2022-07-07] MEDS: SILDENAFIL 20 MG TAB PO SCH ×3 (09:18→20:30)
[2022-07-07] MEDS: SODIUM FERRIC GLUCONAT-SUCROSE 125 MG in SODIUM CHLORIDE 0.9% 100 ML IVPB SCH (09:18)
[2022-07-07] MEDS: PIPERACILLIN-TAZOBACTAM 3.375 GM in SODIUM CHLORIDE 0.9% 100 ML IVPB SCH ×2 (10:37→20:26)
--- NOTE | 2022-07-07 12:09 | P.PN ---
Subjective Patient is seen for follow-up for acute kidney injury and top of chronic kidney disease. She has CKD stage III with baseline creatinine around 2 mg/dL secondary to nephrosclerosis. Patient was admitted to the hospital with increased weakness low blood pressure and severe anemia with hemoglobin of 6.8 g/dL. She has underlying GI bleed. Serum creatinine staying at about 2.2 mg/dL Complaining of abdominal pain Systolic blood pressure staying in the 90s. Currently asymptomatic Objective - Vital Signs Vital signs: Vital Signs Temp 98.1 F 07/07/22 09:15 Pulse 88 07/07/22 09:32 Resp 21 07/07/22 09:32 BP 98/62 07/07/22 09:15 Pulse Ox 100 07/07/22 09:15 FiO2 Intake & Output 07/06/22 07/07/22 07/07/22 18:59 06:59 18:59 Intake Total 618 240 598 Output Total 300 Balance 618 240 298 Intake: Oral 618 240 598 Output: Urine 300 Other: Voiding Method Bedpan Bedpan Bedpan Diaper Diaper # Voids 1 1 # Bowel Movements 1 1 - Exam Patient is awake, comfortable, in no acute distress Examination of the heart S1 and S2 Examination lungs decreased breath sounds at the bases Abdomen is soft nontender Examination lower extremity shows chronic skin changes, no significant edema noted MUSEUM SPECIALIST exam grossly intact - Labs CBC & Chem 7: 07/07/22 08:29 07/07/22 08:29 Labs: Abnormal Lab Results - Last 24 Hours (Table) 07/07/22 07/07/22 Range/Units 08:29 08:29 WBC 12.6 H (3.8-10.6) k/uL RBC 2.75 L (3.80-5.40) m/uL Hgb 8.6 L (11.4-16.0) gm/dL Hct 27.6 L (34.0-46.0) % MCV 100.3 H (80.0-100.0) fL RDW 21.3 H (11.5-15.5) % Neutrophils # 10.7 H (1.3-7.7) k/uL Sodium 136 L (137-145) mmol/L BUN 78 H (7-17) mg/dL Creatinine 2.35 H (0.52-1.04) mg/dL Glucose 152 H (74-99) mg/dL Assessment and Plan Assessment: 1. Acute kidney injury secondary to ATN secondary to anemia and cardiorenal syndrome. Renal function fairly stable this admission. Creatinine 2.53, improved to 2.2. No hydronephrosis noted on kidney ultrasound. 2. Chronic kidney disease stage IIIB with baseline creatinine near 2 secondary to nephrosclerosis and cardiorenal syndrome. 3. GI bleed status post blood transfusion. Surgery following. Receiving IV iron. Hemoglobin 8.6 as of 07/07/2022 4. Hypokalemia from poor intake and possibly intracellular shift because of large deficit. 5. Chronic diastolic CHF with mild to moderate mitral regurgitation, severe tricuspid regurgitation and pulmonary hypertension. 6. Severe constipation. 7. Anemia from GI bleed, with iron deficiency saturation is 4, dated , maintained on IV iron Plan: Continue Aranesp Monitor electrolytes. Replace potassium
[2022-07-07] MEDS ORDERED: POTASSIUM CHLORIDE ER 20 MEQ TAB.ER PO STA (12:10)
[2022-07-07] MEDS: METOPROLOL SUCCINATE (ER) 25 MG TAB.ER.24H PO SCH (12:15)
--- NOTE | 2022-07-07 12:48 | P.PN ---
Subjective Progress Note Date: 07/07/22 H&P Date: 06/30/22 Chief Complaint: fall, weakness Selena Hinton is a 77 yo F with PMH of severe COPD on 6 LPM home O2, pulmonary hypertension, persistent AF on eliquis, CAD, diverticulosis who presented to the ED with increasing weakness and a fall at home. She complains that over the past week she has been feeling weak and shaky, lightheaded when she is up and moving. She notes that a few days ago she fell and hit her head and since then her symptoms have worsened. She denies chest pain, fever, chills, abdominal pain, nausea. She denies melena or hematochezia. On presentation BP 96/50, SpO2 92% on 6 LPM, WBC 14k, Hgb 6.8, BUN 150, Cr 2.5, trop 0.077. CXR with cardiomegaly and correlate for pulmonary fibrosis. 07/05/2022 constipation improved, placed on both Colace and MiraLAX, now reporting positive bowel movements. Reports pain with eating . No abdominal pain to palpation.Complains of left foot, first 3 metatarsals pain.Boot is off at the bedside. Denies chest pain, palpitations or shortness of breath. Reports nonproductive cough. Blood pressure soft, Labs pending. 07/06/2022 maintained on Zosyn for suspected cholecystitis. complains of fluctuating suprapubic, left lower quadrant abdominal pain. Reports Partial small bowel movement yesterday, nonbloody. Denies any nausea, vomiting. Blood pressure soft.Renal function improving with BUN 88, creatinine 2.29, hemoglobin stable at 7.9. Receiving IV Venofer. 07/07/2022 required disimpaction last night with large amount of stool. Reports abdominal pain decreased after disimpaction- with bilateral lower quadrant abdominal pain, improved this am. Short of breath with conversing, maintaining O2 sats in the mid 90s on 4 L nasal cannula. Afebrile, WBC trending down, 12.6. Hemoglobin 8.6, platelets 254. BUN 78, creatinine 2.35. Potassium 3.5. Blood sugars controlled. Blood pressures soft. Objective - Vital Signs Vital signs: Vital Signs Temp 98.1 F 07/07/22 09:15 Pulse 67 07/07/22 12:10 Resp 17 07/07/22 12:10 BP 92/48 07/07/22 12:10 Pulse Ox 95 07/07/22 12:10 FiO2 Intake & Output 07/06/22 07/07/22 07/07/22 18:59 06:59 18:59 Intake Total 618 240 598 Output Total 300 Balance 618 240 298 Intake: Oral 618 240 598 Output: Urine 300 Other: Voiding Method Bedpan Bedpan Bedpan Diaper Diaper # Voids 1 1 # Bowel Movements 1 1 - Exam General: Alert and oriented 3 ,Sitting up in bed, no acute distress, vital signs reviewed Eyes: PERRL, EOMI, conjunctiva normal HENT: normocephalic, mucus membranes moist Neck: supple, no JVD Lungs: normal respiratory effort. CV: Regular rate and rhythm, no murmur. Peripheral pulses 2+ Abdomen: softer, nondistended, decreased bilateral lower quadrant tenderness to palpation, no organomegaly,+BS Skin: warm and dry. Neuro: Cranial nerves II through XII grossly intact - Labs CBC & Chem 7: 07/07/22 08:29 07/07/22 08:29 Labs: Abnormal Lab Results - Last 24 Hours (Table) 07/07/22 07/07/22 Range/Units 08:29 08:29 WBC 12.6 H (3.8-10.6) k/uL RBC 2.75 L (3.80-5.40) m/uL Hgb 8.6 L (11.4-16.0) gm/dL Hct 27.6 L (34.0-46.0) % MCV 100.3 H (80.0-100.0) fL RDW 21.3 H (11.5-15.5) % Neutrophils # 10.7 H (1.3-7.7) k/uL Sodium 136 L (137-145) mmol/L BUN 78 H (7-17) mg/dL Creatinine 2.35 H (0.52-1.04) mg/dL Glucose 152 H (74-99) mg/dL Assessment and Plan Assessment: Acute blood loss anemia secondary to GI bleed, suspect diverticular bleed, status post transfusion of packed RBCs, iron deficient. Abdominal pain, Biliary sludge, cholelithiasis with possible cholecystitis, constipation required disimpaction Elevated troponin, type II NSTEMI, Atrial fibrillation, chronic Acute on Chronic hypoxic respiratory failure Chronic diastolic CHF, multivalvular disease, severe pulmonary hypertension Recent fall, Left foot metatarsal head fractures, nondisplaced digits 2 through 4; proximal phalanx fracture fourth digit left foot, nondisplaced Generalized weakness, multifactorial COPD COVID pneumonia 06/28 Acute on chronic kidney disease III, secondary to dehydration, cardiorenal syndrome Hypokalemia, borderline Hyperkalemia, resolved Hypertension Moderate protein calorie malnutrition, BMI 19.5 Plan: Continue on current medication regime ,monitoring and symptomatic treatment. Maintain MiraLAX ,Lactinex ,simethicone. Potassium replacement ordered .Eliquis remains on hold as per surgery.Maintain antibiotics for possible cholecystitis. IV iron,PPI, Aranesp. Continue Close monitoring of renal function and electrolytes with repeat labs her for a.m. The impression and plan of care has been dictated as directed. : I performed a history and examination of this patient, discussed the same with the dictator. I agree with the dictator's note ,documented as a scribe. Any additional findings or plans will be noted.
--- NOTE | 2022-07-07 13:53 | P.PN ---
Subjective Progress Note Date: 07/07/22 CHIEF COMPLAINT: GI bleed HISTORY OF PRESENT ILLNESS: Patient continues to complain of the same abdominal pain. In the right upper quadrant and lower abdomen. She did have a black stool yesterday. Denies any nausea or vomiting. Afebrile. WBC trending down 12.6 hemoglobin 7.9 up to 8.6 platelets 254 sodium is 136 potassium 3.5 creatinine 2.35 patient is status post IV iron transfusions Patient seen and examined with Dr. cao PHYSICAL EXAM: VITAL SIGNS: Reviewed. GENERAL: Well-developed in no acute distress. HEENT: No sclera icterus. Extraocular movements grossly intact. Moist buccal m ucosa. Head is atraumatic, normocephalic. ABDOMEN: Soft. Nondistended. Tenderness to palpation of the right upper quadrant and suprapubic area NEUROLOGIC: Alert and oriented. Cranial nerves II through XII grossly intact. ASSESSMENT: 1. Abdominal pain 2. GI bleed with black stools 3. Acute on chronic cholecystitis. Right upper quadrant abdominal pain with sludge, pericholecystic fluid, gallbladder thickening and gallstones with positive [place] sign on ultrasound. 4. Constipation improved 5. History of diverticulosis PLAN: -Recommend laparoscopic cholecystectomy when medically stable -Continue to hold Eliquis -Continue supportive care -Continue PPI -Continue low-fat diet -Continue to monitor for any signs or symptoms of bleeding -Continue to monitor hemoglobin Physician [facility] [employer] Service Worker note has been reviewed by physician. Signing provider agrees with the documented findings, assessment, and plan of care. Objective - Vital Signs Vital signs: Vital Signs Temp 98.1 F 07/07/22 09:15 Pulse 67 07/07/22 12:10 Resp 20 07/07/22 13:02 BP 92/48 07/07/22 12:10 Pulse Ox 95 07/07/22 12:10 FiO2 Intake & Output 07/06/22 07/07/22 07/07/22 18:59 06:59 18:59 Intake Total 618 240 598 Output Total 300 Balance 618 240 298 Intake: Oral 618 240 598 Output: Urine 300 Other: Voiding Method Bedpan Bedpan Bedpan Diaper Diaper # Voids 1 1 # Bowel Movements 1 1 - Labs CBC & Chem 7: 07/07/22 08:29 07/07/22 08:29 Labs: Abnormal Lab Results - Last 24 Hours (Table) 07/07/22 07/07/22 Range/Units 08:29 08:29 WBC 12.6 H (3.8-10.6) k/uL RBC 2.75 L (3.80-5.40) m/uL Hgb 8.6 L (11.4-16.0) gm/dL Hct 27.6 L (34.0-46.0) % MCV 100.3 H (80.0-100.0) fL RDW 21.3 H (11.5-15.5) % Neutrophils # 10.7 H (1.3-7.7) k/uL Sodium 136 L (137-145) mmol/L BUN 78 H (7-17) mg/dL Creatinine 2.35 H (0.52-1.04) mg/dL Glucose 152 H (74-99) mg/dL
--- NOTE | 2022-07-07 23:15 | PN ---
PROGRESS NOTE SUBJECTIVE: A 77-year-old lady with multiple medical problems including persistent atrial fibrillation, severe mitral regurgitation, severe pulmonary hypertension, presented to hospital with mildly elevated troponin, generalized weakness and fall. This morning she is doing better. OBJECTIVE: VITAL SIGNS: On exam, heart rate is 67 beats per minute, blood pressure is 92/48, respiratory rate is 18, and O2 saturation is 95% on 4 L. NECK: There is no jugular venous distention. CHEST: Reveals good air entry bilaterally. HEART: Reveals first and second heart sounds, a systolic murmur at the apex. ABDOMEN: Soft. EXTREMITIES: Reveal bilateral 1+ pitting edema. LABORATORY DATA: Show a potassium of 3.5, BUN is 78, creatinine is 2.3. PLAN: The patient will continue the Lipitor, Toprol-XL that she is on. She is not a candidate for anticoagulation because of history of falls. MMODL / IJN: [id number] /
[2022-07-08] MEDS: SUCRALFATE 1 GM TAB PO SCH ×3 (06:24→18:05)
[2022-07-08] MEDS: SYMBICORT 160-4.5 MCG INHALER INHALATION SCH ×2 (08:28→21:15)
[2022-07-08] MEDS: ATORVASTATIN 40 MG TAB PO SCH (09:45)
[2022-07-08] MEDS: LACTOBACILLUS ACIDOPH & BULGAR 1 EACH PACKET PO SCH ×3 (09:45→21:14)
[2022-07-08] MEDS: SILDENAFIL 20 MG TAB PO SCH ×3 (09:46→21:13)
[2022-07-08] MEDS: PANTOPRAZOLE 40 MG/10 ML VIAL IVP SCH ×2 (09:46→21:14)
[2022-07-08] MEDS: polyethylene glycoL 3350 17 GM POWD.PACK PO SCH ×3 (09:46→20:14)
[2022-07-08] MEDS: MIDODRINE 5 MG TAB PO SCH ×3 (09:46→21:13)
[2022-07-08] MEDS: PIPERACILLIN-TAZOBACTAM 3.375 GM in SODIUM CHLORIDE 0.9% 100 ML IVPB SCH ×2 (09:46→21:13)
[2022-07-08] MEDS: DOCUSATE 100 MG CAP PO SCH ×2 (09:46→20:14)
[2022-07-08] MEDS: ACETAMINOPHEN TAB 325 MG TAB PO PRN ×2 (10:23→18:05)
[2022-07-08 10:55] LABS: Anisocytosis Moderate; Basophils # (A) 0.1 k/uL (0-0.2); Basophils % (A) 1 %; Eosinophils # (A) 0.1 k/uL (0-0.7); Eosinophils % (A) 1 %; HCT 26.8 % (34.0-46.0); HGB 8.4 gm/dL (11.4-16.0); Hypochromasia Marked; Lymphocytes # (A) 0.9 k/uL (1.0-4.8); Lymphocytes % (A) 9 %; MCH 32.2 pg (25.0-35.0); MCHC 31.5 g/dL (31.0-37.0); MCV 102.2 fL (80.0-100.0); Macrocytosis Marked; Mean Platelet Volume 9.6; Monocytes # (A) 0.4 k/uL (0-1.0); Monocytes % (A) 4 %; Neutrophils # (A) 8.8 k/uL (1.3-7.7); Neutrophils % (A) 84 %; Platelet Count 247 k/uL (150-450); Poikilocytosis Slight; RBC 2.62 m/uL (3.80-5.40); RDW 20.3 % (11.5-15.5); WBC 10.5 k/uL (3.8-10.6)
--- NOTE | 2022-07-08 10:55 | P.PN ---
Subjective Patient is seen for follow-up for acute kidney injury and top of chronic kidney disease. She has CKD stage III with baseline creatinine around 2 mg/dL secondary to nephrosclerosis. Patient was admitted to the hospital with increased weakness low blood pressure and severe anemia with hemoglobin of 6.8 g/dL. She has underlying GI bleed. Serum creatinine staying at about 2.2 -2.3 mg/dL No complaints today Systolic blood pressure staying in the 90s. Currently asymptomatic Objective - Vital Signs Vital signs: Vital Signs Temp 98.2 F 07/08/22 09:45 Pulse 78 07/08/22 09:45 Resp 18 07/08/22 09:45 BP 110/61 07/08/22 09:45 Pulse Ox 98 07/08/22 09:45 FiO2 Intake & Output 07/07/22 07/08/22 07/08/22 18:59 06:59 18:59 Intake Total 598 458 Output Total 300 Balance 298 458 Intake: Oral 598 458 Output: Urine 300 Other: Voiding Method Bedpan Bedpan Diaper Diaper # Voids 1 # Bowel Movements 1 1 2 - Exam Patient is awake, comfortable, in no acute distress Examination of the heart S1 and S2 Examination lungs decreased breath sounds at the bases Abdomen is soft nontender Examination lower extremity shows chronic skin changes, no significant edema noted NATURAL RESOURCE MANAGER exam grossly intact - Labs CBC & Chem 7: 07/07/22 08:29 07/07/22 08:29 Assessment and Plan Assessment: 1. Acute kidney injury secondary to ATN secondary to anemia and cardiorenal syndrome. Renal function fairly stable this admission. Creatinine 2.53, now staying around 2.3 to 2.2. No hydronephrosis noted on kidney ultrasound. 2. Chronic kidney disease stage IIIB with baseline creatinine near 2 secondary to nephrosclerosis and cardiorenal syndrome. 3. GI bleed status post blood transfusion. Surgery following. Receiving IV iron. Hemoglobin 8.6 as of 07/07/2022 4. Hypokalemia from poor intake and possibly intracellular shift because of large deficit. 5. Chronic diastolic CHF with mild to moderate mitral regurgitation, severe tricuspid regurgitation and pulmonary hypertension. 6. Severe constipation. 7. Anemia from GI bleed, with iron deficiency saturation is 4, dated 06/29/2022, maintained on IV iron Plan: Continue Aranesp Monitor electrolytes. Check labs in a.m.
[2022-07-08 11:06] LABS: Calcium 8.4 mg/dL (8.4-10.2); Potassium 3.3 mmol/L (3.5-5.1)
--- NOTE | 2022-07-08 12:30 | P.PN ---
Subjective Progress Note Date: 07/08/22 CHIEF COMPLAINT: GI bleed HISTORY OF PRESENT ILLNESS: Patient reports that she feels better today. She h as no abdominal pain. She had a liquidy brown bowel movement this morning. She reports increase in the amount of bowel movements. She denies any nausea or vomiting. She reports tolerating diet. Afebrile. WBC has normalized from 12.6-10.5 hemoglobin 8.4 platelets 247 sodium 136 potassium 3.3 creatinine 2.25 Patient seen and examined with Dr. cao PHYSICAL EXAM: VITAL SIGNS: Reviewed. GENERAL: Well-developed in no acute distress. HEENT: No sclera icterus. Extraocular movements grossly intact. Moist buccal mucosa. Head is atraumatic, normocephalic. ABDOMEN: Soft. Nondistended. Nontender NEUROLOGIC: Alert and oriented. Cranial nerves II through XII grossly intact. ASSESSMENT: 1. Abdominal pain 2. GI bleed with black stools improved 3. Acute on chronic cholecystitis. Right upper quadrant abdominal pain with sludge, pericholecystic fluid, gallbladder thickening and gallstones with positive [place] sign on ultrasound. 4. Constipation improved 5. History of diverticulosis PLAN: -Recommend laparoscopic cholecystectomy when medically stable -Continue to hold Eliquis -Continue supportive care -Continue PPI -Continue low-fat diet -Continue to monitor for any signs or symptoms of bleeding -Continue to monitor hemoglobin -Continue good bowel regimen -Hypokalemia patient received supplement Physician Wild Life Manager note has been reviewed by physician. Signing provider agrees with the documented findings, assessment, and plan of care. Objective - Vital Signs Vital signs: Vital Signs Temp 98.2 F 07/08/22 09:45 Pulse 78 07/08/22 09:45 Resp 18 07/08/22 09:45 BP 110/61 07/08/22 09:45 Pulse Ox 98 07/08/22 09:45 FiO2 Intake & Output 07/07/22 07/08/22 07/08/22 18:59 06:59 18:59 Intake Total 598 458 Output Total 300 Balance 298 458 Intake: Oral 598 458 Output: Urine 300 Other: Voiding Method Bedpan Bedpan Bedpan Diaper Diaper Diaper # Voids 1 # Bowel Movements 1 1 2 - Labs CBC & Chem 7: 07/08/22 09:47 07/08/22 09:47 Labs: Abnormal Lab Results - Last 24 Hours (Table) 07/08/22 07/08/22 Range/Units 09:47 09:47 RBC 2.62 L (3.80-5.40) m/uL Hgb 8.4 L (11.4-16.0) gm/dL Hct 26.8 L (34.0-46.0) % MCV 102.2 H (80.0-100.0) fL RDW 20.3 H (11.5-15.5) % Macrocytosis Marked A Sodium 136 L (137-145) mmol/L Potassium 3.3 L (3.5-5.1) mmol/L BUN 69 H (7-17) mg/dL Creatinine 2.25 H (0.52-1.04) mg/dL Glucose 173 H (74-99) mg/dL
[2022-07-08] MEDS: METOPROLOL SUCCINATE (ER) 25 MG TAB.ER.24H PO SCH (13:52)
--- NOTE | 2022-07-08 13:59 | PN ---
PROGRESS NOTE SUBJECTIVE: This morning the daughter complains of mild bilateral leg edema. We are holding her diuretics because of intravascular volume depletion. She is feeling somewhat better. Currently on Toprol-XL and Lipitor. OBJECTIVE: VITAL SIGNS: On exam, heart rate is 80 beats per minute, blood pressure is 110/60, respiratory rate is 18, and O2 saturation is 98% on 4 L. NECK: There is no jugular venous distention. CHEST: Reveals diminished air entry at the bases with occasional rhonchi. HEART: Reveals first and second heart sounds and a systolic murmur at the left lower sternal border. ABDOMEN: Soft. EXTREMITIES: Reveals mild edema, peripheral pulses are felt. LABS: Showed that the BUN has come down to 69, creatinine is 2.2. PLAN: I will continue to hold the diuretic at this time and continue rest of her medications. MMODL / IJN: [id number] /
[2022-07-09] MEDS: SUCRALFATE 1 GM TAB PO SCH ×3 (06:06→17:24)
[2022-07-09] MEDS: SYMBICORT 160-4.5 MCG INHALER INHALATION SCH ×2 (07:57→19:56)
[2022-07-09 08:32] LABS: Anisocytosis Moderate; HCT 26.1 % (34.0-46.0); HGB 7.9 gm/dL (11.4-16.0); Hypochromasia Marked; MCH 31.3 pg (25.0-35.0); MCHC 30.4 g/dL (31.0-37.0); MCV 102.9 fL (80.0-100.0); Macrocytosis Marked; Mean Platelet Volume 9.6; Platelet Count 229 k/uL (150-450); Poikilocytosis Slight; RBC 2.53 m/uL (3.80-5.40); RDW 20.5 % (11.5-15.5); WBC 8.9 k/uL (3.8-10.6)
[2022-07-09 08:53] LABS: Calcium 8.4 mg/dL (8.4-10.2); Potassium 3.3 mmol/L (3.5-5.1)
[2022-07-09] MEDS: SILDENAFIL 20 MG TAB PO SCH ×3 (09:09→20:25)
[2022-07-09] MEDS: DOCUSATE 100 MG CAP PO SCH ×2 (09:10→20:29)
[2022-07-09] MEDS: MIDODRINE 5 MG TAB PO SCH ×3 (09:10→20:25)
[2022-07-09] MEDS: ATORVASTATIN 40 MG TAB PO SCH (09:10)
[2022-07-09] MEDS: PANTOPRAZOLE 40 MG/10 ML VIAL IVP SCH ×2 (09:11→20:25)
[2022-07-09] MEDS: PIPERACILLIN-TAZOBACTAM 3.375 GM in SODIUM CHLORIDE 0.9% 100 ML IVPB SCH ×2 (09:11→20:25)
[2022-07-09] MEDS: LACTOBACILLUS ACIDOPH & BULGAR 1 EACH PACKET PO SCH ×3 (09:11→20:29)
[2022-07-09] MEDS ORDERED: Potassium Replacement Protocol 1 EACH MISC MISCELLANE PRN (10:12)
[2022-07-09] MEDS: polyethylene glycoL 3350 17 GM POWD.PACK PO SCH ×3 (11:44→20:29)
--- NOTE | 2022-07-09 12:38 | P.PN ---
Subjective Progress Note Date: 07/09/22 CHIEF COMPLAINT: GI bleed HISTORY OF PRESENT ILLNESS: Patient lying in bed comfortably. She denies any a bdominal pain. She is having bowel movements. She denies any blood in her stools. Denies any nausea vomiting. She is tolerating diet. Afebrile. WBC 8.9 Hgb is down from 8.4-7.9 platelets 229 symptoms 136 potassium 3.3 creatinine 2.07. Medicine replaced potassium. Patient seen and examined with Dr. cao PHYSICAL EXAM: VITAL SIGNS: Reviewed. GENERAL: Well-developed in no acute distress. HEENT: No sclera icterus. Extraocular movements grossly intact. Moist buccal mucosa. Head is atraumatic, normocephalic. ABDOMEN: Soft. Nondistended. Nontender NEUROLOGIC: Alert and oriented. Cranial nerves II through XII grossly intact. ASSESSMENT: 1. Abdominal pain resolved 2. GI bleed with black stools improved 3. Acute on chronic cholecystitis. Right upper quadrant abdominal pain with sludge, pericholecystic fluid, gallbladder thickening and gallstones with positive [place] sign on ultrasound. 4. Constipation improved 5. History of diverticulosis PLAN: -Patient can be discharged from surgical standpoint -Recommend laparoscopic cholecystectomy when medically stable -Continue to hold Eliquis until 07/12/2022 -Recommend repeating CBC in 3 days -Continue supportive care -Continue PPI -Continue low-fat diet -Continue good bowel regimen Physician Head Machine Feeder note has been reviewed by physician. Signing provider agrees with the documented findings, assessment, and plan of care. Objective - Vital Signs Vital signs: Vital Signs Temp 96.6 F L 07/09/22 12:00 Pulse 99 07/09/22 12:00 Resp 18 07/09/22 12:00 BP 111/64 07/09/22 12:00 Pulse Ox 95 07/09/22 12:00 FiO2 Intake & Output 07/08/22 07/09/22 07/09/22 18:59 06:59 18:59 Intake Total 1056 Balance 1056 Intake: Oral 1056 Other: Voiding Method Bedpan Bedpan Bedpan Diaper Diaper Diaper # Voids 1 # Bowel Movements 5 1 - Labs CBC & Chem 7: 07/09/22 07:51 07/09/22 07:51 Labs: Abnormal Lab Results - Last 24 Hours (Table) 07/08/22 07/09/22 07/09/22 Range/Units 09:47 07:51 07:51 RBC 2.53 L (3.80-5.40) m/uL Hgb 7.9 L (11.4-16.0) gm/dL Hct 26.1 L (34.0-46.0) % MCV 102.9 H (80.0-100.0) fL MCHC 30.4 L (31.0-37.0) g/dL RDW 20.5 H (11.5-15.5) % Neutrophils # 8.8 H (1.3-7.7) k/uL Lymphocytes # 0.9 L (1.0-4.8) k/uL Macrocytosis Marked A Sodium 136 L (137-145) mmol/L Potassium 3.3 L (3.5-5.1) mmol/L BUN 60 H (7-17) mg/dL Creatinine 2.07 H (0.52-1.04) mg/dL Glucose 109 H (74-99) mg/dL Magnesium (1.6-2.3) mg/dL 07/09/22 Range/Units 07:51 RBC (3.80-5.40) m/uL Hgb (11.4-16.0) gm/dL Hct (34.0-46.0) % MCV (80.0-100.0) fL MCHC (31.0-37.0) g/dL RDW (11.5-15.5) % Neutrophils # (1.3-7.7) k/uL Lymphocytes # (1.0-4.8) k/uL Macrocytosis Sodium (137-145) mmol/L Potassium (3.5-5.1) mmol/L BUN (7-17) mg/dL Creatinine (0.52-1.04) mg/dL Glucose (74-99) mg/dL Magnesium 2.4 H (1.6-2.3) mg/dL
[2022-07-09] MEDS: METOPROLOL SUCCINATE (ER) 25 MG TAB.ER.24H PO SCH (13:01)
[2022-07-09] MEDS: DARBEPOETIN ALFA 40 MCG/0.4 ML SYRINGE SQ SCH (13:59)
--- NOTE | 2022-07-09 17:44 | P.PN ---
Subjective Progress Note Date: 07/08/22 H&P Date: 06/30/22 Chief Complaint: fall, weakness Selena Hinton is a 77 yo F with PMH of severe COPD on 6 LPM home O2, pulmonary hypertension, persistent AF on eliquis, CAD, diverticulosis who presented to the ED with increasing weakness and a fall at home. She complains that over the past week she has been feeling weak and shaky, lightheaded when she is up and moving. She notes that a few days ago she fell and hit her head and since then her symptoms have worsened. She denies chest pain, fever, chills, abdominal pain, nausea. She denies melena or hematochezia. On presentation BP 96/50, SpO2 92% on 6 LPM, WBC 14k, Hgb 6.8, BUN 150, Cr 2.5, trop 0.077. CXR with cardiomegaly and correlate for pulmonary fibrosis. 07/05/2022 constipation improved, placed on both Colace and MiraLAX, now reporting positive bowel movements. Reports pain with eating . No abdominal pain to palpation.Complains of left foot, first 3 metatarsals pain.Boot is off at the bedside. Denies chest pain, palpitations or shortness of breath. Reports nonproductive cough. Blood pressure soft, Labs pending. 07/06/2022 maintained on Zosyn for suspected cholecystitis. complains of fluctuating suprapubic, left lower quadrant abdominal pain. Reports Partial small bowel movement yesterday, nonbloody. Denies any nausea, vomiting. Blood pressure soft.Renal function improving with BUN 88, creatinine 2.29, hemoglobin stable at 7.9. Receiving IV Venofer. 07/07/2022 required disimpaction last night with large amount of stool. Reports abdominal pain decreased after disimpaction- with bilateral lower quadrant abdominal pain, improved this am. Short of breath with conversing, maintaining O2 sats in the mid 90s on 4 L nasal cannula. Afebrile, WBC trending down, 12.6. Hemoglobin 8.6, platelets 254. BUN 78, creatinine 2.35. Potassium 3.5. Blood sugars controlled. Blood pressures soft. 07/08/2022 Positive brown bowel movements last night and today. Eliquis remains on hold. Abdominal pain improved-reports minimal. Tolerating diet, denies nausea or vomiting. Maintaining O2 sats in the 90s on 4 L nasal cannula. Afebrile, normal WBC.hemoglobin 8.4 platelets 247 sodium 136 potassium 3.3 creatinine 2.25. Objective - Vital Signs Vital signs: Vital Signs Temp 98.2 F 07/08/22 09:45 Pulse 78 07/08/22 09:45 Resp 18 07/08/22 09:45 BP 110/61 07/08/22 09:45 Pulse Ox 98 07/08/22 09:45 FiO2 Intake & Output 07/07/22 07/08/22 07/08/22 18:59 06:59 18:59 Intake Total 598 458 Output Total 300 Balance 298 458 Intake: Oral 598 458 Output: Urine 300 Other: Voiding Method Bedpan Bedpan Bedpan Diaper Diaper Diaper # Voids 1 # Bowel Movements 1 1 2 - Exam General: Alert and oriented 3 ,Sitting up in bed, no acute distress, vital signs reviewed Eyes: PERRL, EOMI, conjunctiva normal HENT: normocephalic, mucus membranes moist Neck: supple, no JVD Lungs: normal respiratory effort. CV: Regular rate and rhythm, no murmur. Peripheral pulses 2+ Abdomen: soft nondistended, minimal bilateral lower quadrant tenderness , no organomegaly,+BS Skin: warm and dry. Neuro: Cranial nerves II through XII grossly intact - Labs CBC & Chem 7: 07/09/22 07:51 07/09/22 07:51 Labs: Abnormal Lab Results - Last 24 Hours (Table) 07/09/22 07/09/22 07/09/22 Range/Units 07:51 07:51 07:51 RBC 2.53 L (3.80-5.40) m/uL Hgb 7.9 L (11.4-16.0) gm/dL Hct 26.1 L (34.0-46.0) % MCV 102.9 H (80.0-100.0) fL MCHC 30.4 L (31.0-37.0) g/dL RDW 20.5 H (11.5-15.5) % Macrocytosis Marked A Sodium 136 L (137-145) mmol/L Potassium 3.3 L (3.5-5.1) mmol/L BUN 60 H (7-17) mg/dL Creatinine 2.07 H (0.52-1.04) mg/dL Glucose 109 H (74-99) mg/dL Magnesium 2.4 H (1.6-2.3) mg/dL Assessment and Plan Assessment: Acute blood loss anemia secondary to GI bleed, suspect diverticular bleed, status post transfusion of packed RBCs, iron deficient. Abdominal pain, Biliary sludge, cholelithiasis with possible cholecystitis, constipation required disimpaction Elevated troponin, type II NSTEMI, Atrial fibrillation, chronic Acute on Chronic hypoxic respiratory failure Chronic diastolic CHF, multivalvular disease, severe pulmonary hypertension Recent fall, Left foot metatarsal head fractures, nondisplaced digits 2 through 4; proximal phalanx fracture fourth digit left foot, nondisplaced Generalized weakness, multifactorial COPD COVID pneumonia 06/28 Acute on chronic kidney disease III, secondary to dehydration, cardiorenal syndrome Hypokalemia, borderline Hyperkalemia, resolved Hypertension Moderate protein calorie malnutrition, BMI 19.5 Plan: Continue on current medication regime ,monitoring and symptomatic treatment. Continue MiraLAX ,Lactinex ,simethicone. Potassium replacement ordered .Angélica remains on hold as per surgery.Continue Close monitoring of renal function and electrolytes with repeat labs her for a.m. discussed discharge planning in progress for tomorrow, patient verbalizes understanding and agreement with. Discussed potential subacute rehab, patient declined. The impression and plan of care has been dictated as directed. : I performed a history and examination of this patient, discussed the same with the dictator. I agree with the dictator's note ,documented as a scribe. Any additional findings or plans will be noted.
--- NOTE | 2022-07-09 17:55 | P.DS ---
Providers Date of admission: 06/29/22 16:21 Expected date of discharge: 07/09/22 Attending physician: Riki Toth MD Consults: 06/29/22 16:44 Consult Physician Urgent Consulting Provider: Alberto Spangler Consult Reason/Comments: GI bleed Do you want consulting provider notified?: Yes 06/30/22 09:31 Consult Physician Urgent Consulting Provider: Dallas Rosenthal Consult Reason/Comments: elevated troponins Do you want consulting provider notified?: Yes 07/01/22 11:27 Consult Physician Routine Consulting Provider: Jimi Lira Consult Reason/Comments: Acute on chronic kidney disease Do you want consulting provider notified?: Yes 07/01/22 17:32 Consult Physician Routine Consulting Provider: Varinder Chery Consult Reason/Comments: multiple fractures in left foot Do you want consulting provider notified?: Yes Primary care physician: [facility] Course: Final Diagnoses: Acute blood loss anemia secondary to GI bleed, suspect diverticular bleed, statu s post transfusion of packed RBCs, iron deficient. Abdominal pain, secondary to colitis, constipation required disimpaction. Biliary sludge, cholelithiasis with possible cholecystitis Elevated troponin, type II NSTEMI, Atrial fibrillation, chronic Acute on Chronic hypoxic respiratory failure Chronic diastolic CHF, multivalvular disease, severe pulmonary hypertension Recent fall, Left foot metatarsal head fractures, nondisplaced digits 2 through 4; proximal phalanx fracture fourth digit left foot, nondisplaced Generalized weakness, multifactorial COPD COVID pneumonia 06/28 Acute on chronic kidney disease III, secondary to dehydration, cardiorenal syndrome Hypokalemia, borderline Hyperkalemia, resolved Hypertension Moderate protein calorie malnutrition, BMI 19.5 Hospital course:Selena Hinton is a 77 yo F with PMH of severe COPD on 6 LPM home O2, pulmonary hypertension, persistent AF on eliquis, CAD, diverticulosis who presented to the ED with increasing weakness and a fall at home. She complains that over the past week she has been feeling weak and shaky, lightheaded when she is up and moving. She notes that a few days ago she fell and hit her head and since then her symptoms have worsened. She denies chest pain, fever, chills, abdominal pain, nausea. She denies melena or hematochezia. On presentation BP 96/50, SpO2 92% on 6 LPM, WBC 14k, Hgb 6.8, BUN 150, Cr 2.5, trop 0.077. CXR with cardiomegaly and correlate for pulmonary fibrosis. 07/05/2022 constipation improved, placed on both Colace and MiraLAX, now reporting positive bowel movements. Reports pain with eating . No abdominal pain to palpation.Complains of left foot, first 3 metatarsals pain.Boot is off at the bedside. Denies chest pain, palpitations or shortness of breath. Reports nonproductive cough. Blood pressure soft, Labs pending. 07/06/2022 maintained on Zosyn for suspected cholecystitis. complains of fluctuating suprapubic, left lower quadrant abdominal pain. Reports Partial small bowel movement yesterday, nonbloody. Denies any nausea, vomiting. Blood pressure soft.Renal function improving with BUN 88, creatinine 2.29, hemoglobin stable at 7.9. Receiving IV Venofer. 07/07/2022 required disimpaction last night with large amount of stool. Reports abdominal pain decreased after disimpaction- with bilateral lower quadrant abdominal pain, improved this am. Short of breath with conversing, maintaining O2 sats in the mid 90s on 4 L nasal cannula. Afebrile, WBC trending down, 12.6. Hemoglobin 8.6, platelets 254. BUN 78, creatinine 2.35. Potassium 3.5. Blood sugars controlled. Blood pressures soft. 07/08/2022 Positive brown bowel movements last night and today. Eliquis remains on hold. Abdominal pain improved-reports minimal. Tolerating diet, denies nausea or vomiting. Maintaining O2 sats in the 90s on 4 L nasal cannula. Afebrile, normal WBC.hemoglobin 8.4 platelets 247 sodium 136 potassium 3.3 creatinine 2.25. 07/09/2022 denies abdominal pain. Continues to have brown bowel movements, nonbloody. Tolerating diet, denies nausea vomiting. Afebrile. Potassium 3.3 and supplementation ordered. Patient is eager and asking for discharge home today. Significant clinical improvement. Patient will be discharged home today in a stable condition with guarded prognosis, pending final DC recommendations and clearance per general surgery and nephrology. Resume Eliquis as per general surgery. Diuretic recommendations as per nephrology. The impression and plan of care has been dictated as directed. : I performed a history and examination of this patient, discussed the same with the dictator. I agree with the dictator's note ,documented as a scribe. Any additional findings or plans will be noted. Patient Condition at Discharge: Stable Plan - Discharge Summary Discharge Rx Participant: No New Discharge Prescriptions: New Amoxic-Pot Clav 500-125 mg [Augmentin 500-125 mg] 1 tab PO Q12HR 3 Days #6 tab Sucralfate [Carafate] 1 gm PO AC-TID #90 tab Docusate [Colace] 100 mg PO BID #0 cap Lactobacillus Acidoph & Bulgar [Lactinex] 1 each PO TID #90 packet polyethylene glycoL 3350 [Miralax] 17 gm PO BID packet Simethicone Chew [Mylicon Chew] 80 mg PO QID PRN tab PRN Reason: Bloating Continue Ipratropium-Albuterol Nebulize [Duoneb 0.5 mg-3 mg/3 ml Soln] 3 ml INHALATION RT-BID PRN PRN Reason: Shortness Of Breath Acetaminophen [Tylenol] 325 mg PO TID PRN PRN Reason: Pain Albuterol Sulfate [Ventolin HFA] 1 puff INHALATION RT-Q4H PRN PRN Reason: Shortness Of Breath Potassium Chloride ER [K-Dur 10] 10 meq PO BID Midodrine HCl [ProAmatine] 10 mg PO TID@0900,1400,2000 Fluticasone Propion/Salmeterol [Fluticasone-Salmeterol 250-50] 1 puff INHALATION RT-BID Atorvastatin [Lipitor] 40 mg PO DAILY Pantoprazole [Protonix] 40 mg PO DAILY 30 Days #30 tab Sildenafil [Revatio] 20 mg PO TID #90 tab Metoprolol Succinate [Metoprolol Succinate ER] 12.5 mg PO DAILY@1200 Bumetanide [BUMEX] 2 mg PO BID@0900,1600 Apixaban [Eliquis] 2.5 mg PO BID 30 Days #60 tab Discharge Medication List Acetaminophen [Tylenol] 325 mg PO TID PRN 06/26/21 [History] Fluticasone Propion/Salmeterol [Fluticasone-Salmeterol 250-50] 1 puff INHALATION RT-BID 06/26/21 [History] Ipratropium-Albuterol Nebulize [Duoneb 0.5 mg-3 mg/3 ml Soln] 3 ml INHALATION RT-BID PRN 06/26/21 [History] Albuterol Sulfate [Ventolin HFA] 1 puff INHALATION RT-Q4H PRN 02/01/22 [History] Atorvastatin [Lipitor] 40 mg PO DAILY 02/01/22 [History] Potassium Chloride ER [K-Dur 10] 10 meq PO BID 02/01/22 [History] Pantoprazole [Protonix] 40 mg PO DAILY 30 Days #30 tab 02/06/22 [Rx] Sildenafil [Revatio] 20 mg PO TID #90 tab 05/12/22 [Rx] Metoprolol Succinate [Metoprolol Succinate ER] 12.5 mg PO DAILY@1200 05/18/22 [History] Bumetanide [BUMEX] 2 mg PO BID@0900,1600 06/29/22 [History] Midodrine HCl [ProAmatine] 10 mg PO TID@0900,1400,2000 06/29/22 [History] Amoxic-Pot Clav 500-125 mg [Augmentin 500-125 mg] 1 tab PO Q12HR 3 Days #6 tab 07/09/22 [Rx] Apixaban [Eliquis] 2.5 mg PO BID 30 Days #60 tab 07/09/22 [Rx] Docusate [Colace] 100 mg PO BID #0 cap 07/09/22 [Rx] Lactobacillus Acidoph & Bulgar [Lactinex] 1 each PO TID #90 packet 07/09/22 [Rx] Simethicone Chew [Mylicon Chew] 80 mg PO QID PRN tab 07/09/22 [Rx] Sucralfate [Carafate] 1 gm PO AC-TID #90 tab 07/09/22 [Rx] polyethylene glycoL 3350 [Miralax] 17 gm PO BID packet 07/09/22 [Rx] Follow up Appointment(s)/Referral(s): Destiny Ramos MD [STAFF PHYSICIAN] - 1 Week Hailey Goldman MD [Family Provider] - 1 Week [facility], [NON-STAFF] - Nuvia Lerner MD [Primary Care Provider] - 3 Days Varinder Chery MD [STAFF PHYSICIAN] - 1 Week Alberto Spangler MD [STAFF PHYSICIAN] - 1 Week Ambulatory/Diagnostic Orders: Complete Blood Count w/diff [LAB.AMB] Time Frame: 3 Days, Location: None Selected Activity/Diet/Wound Care/Special Instructions: Ok to resume Eliquis on 07/12/22 Patient needs bedside commode at discharge secondary to being room confined from unsteady gait and metatarsal head fractures Discharge Disposition: HOME WITH HOME HEALTH SERVICES
[2022-07-09] MEDS: ACETAMINOPHEN TAB 325 MG TAB PO PRN (21:45)
--- NOTE | 2022-07-09 23:12 | PN ---
PROGRESS NOTE SUBJECTIVE: Selena is a 77-year-old lady, who seems somewhat sleepy this morning, but denies any chest pain or difficulty in breathing. Has history of heart failure, but on this admission had significant intravascular volume depletion that has improved now. BUN has come down to 60 and creatinine is 2. OBJECTIVE: VITAL SIGNS: Stable. CHEST: Reveals diminished air entry at the bases. HEART: Reveals first and second heart sounds and a systolic murmur at the left lower sternal border. ABDOMEN: Soft. EXTREMITIES: Reveals mild edema. LABORATORY DATA: Labs show a hemoglobin of 7.9, BUN is 60, creatinine is 2, potassium is 3.3. ASSESSMENT: 1. Chronic congestive heart failure, currently volume depleted. 2. Pulmonary hypertension. 3. Hypotension. 4. Atrial fibrillation. PLAN: We will continue the patient on Toprol, sildenafil. Continue to hold the diuretic. EMILY / MAURICE: [id number] /
[2022-07-10] MEDS: SUCRALFATE 1 GM TAB PO SCH ×3 (06:06→17:49)
[2022-07-10] MEDS: SYMBICORT 160-4.5 MCG INHALER INHALATION SCH ×2 (08:25→20:44)
[2022-07-10] MEDS: MIDODRINE 5 MG TAB PO SCH ×3 (08:26→19:58)
[2022-07-10] MEDS: ATORVASTATIN 40 MG TAB PO SCH (08:26)
[2022-07-10] MEDS: PANTOPRAZOLE 40 MG/10 ML VIAL IVP SCH ×2 (08:26→19:57)
[2022-07-10] MEDS: SILDENAFIL 20 MG TAB PO SCH ×3 (08:26→19:58)
[2022-07-10] MEDS: polyethylene glycoL 3350 17 GM POWD.PACK PO SCH ×3 (08:26→19:57)
[2022-07-10] MEDS: LACTOBACILLUS ACIDOPH & BULGAR 1 EACH PACKET PO SCH ×3 (08:26→19:56)
[2022-07-10] MEDS: DOCUSATE 100 MG CAP PO SCH ×2 (08:27→19:56)
[2022-07-10] MEDS: PIPERACILLIN-TAZOBACTAM 3.375 GM in SODIUM CHLORIDE 0.9% 100 ML IVPB SCH ×2 (08:27→19:58)
--- NOTE | 2022-07-10 09:14 | P.PN ---
Subjective Patient is seen for follow-up for acute kidney injury and top of chronic kidney disease. She has CKD stage III with baseline creatinine around 2 mg/dL secondary to nephrosclerosis. Patient was admitted to the hospital with increased weakness low blood pressure and severe anemia with hemoglobin of 6.8 g/dL. She has underlying GI bleed. Hemoglobin stable around 8.4-7.9 Serum creatinine staying at about 2.2 -2.3 mg/dL it was 2.0 on 07/09/2022 No complaints today Systolic blood pressure staying in the 90s. Currently asymptomatic. Maintained on midodrine Objective - Vital Signs Vital signs: Vital Signs Temp 97.7 F 07/10/22 03:10 Pulse 86 07/10/22 08:00 Resp 16 07/10/22 08:00 BP 91/49 07/10/22 08:00 Pulse Ox 94 L 07/10/22 08:25 FiO2 Intake & Output 07/09/22 07/10/22 07/10/22 18:59 06:59 18:59 Intake Total 358 Balance 358 Intake: Oral 358 Other: Voiding Method Bedpan Bedpan Diaper Diaper # Voids 1 # Bowel Movements 1 - Exam Patient is awake, comfortable, in no acute distress Examination of the heart S1 and S2 Examination lungs decreased breath sounds at the bases Abdomen is soft nontender Examination lower extremity shows chronic skin changes, no significant edema noted T[employer] exam grossly intact - Labs CBC & Chem 7: 07/09/22 07:51 07/09/22 07:51 Labs: Abnormal Lab Results - Last 24 Hours (Table) 07/09/22 Range/Units 07:51 Magnesium 2.4 H (1.6-2.3) mg/dL Assessment and Plan Assessment: 1. Acute kidney injury secondary to ATN secondary to anemia and cardiorenal syndrome. Renal function fairly stable this admission. Creatinine 2.53, now staying around 2.3 to 2.2. No hydronephrosis noted on kidney ultrasound. 2. Chronic kidney disease stage IIIB with baseline creatinine near 2 secondary to nephrosclerosis and cardiorenal syndrome. 3. GI bleed status post blood transfusion. Surgery following. Receiving IV iron. Hemoglobin 8.6 as of 07/07/2022 4. Hypokalemia from poor intake and possibly intracellular shift because of large deficit. 5. Chronic diastolic CHF with mild to moderate mitral regurgitation, severe tricuspid regurgitation and pulmonary hypertension. 6. Severe constipation. 7. Anemia from GI bleed, with iron deficiency saturation is 4, dated 06/29/2022, status post IV iron Plan: Continue Aranesp Monitor renal function periodically Follow-up as outpatient for CK D in about 2 weeks post discharge
[2022-07-10 10:56] LABS: Anisocytosis Moderate; Basophils # (A) 0.1 k/uL (0-0.2); Basophils % (A) 1 %; Eosinophils # (A) 0.1 k/uL (0-0.7); Eosinophils % (A) 1 %; HCT 27.6 % (34.0-46.0); HGB 8.4 gm/dL (11.4-16.0); Hypochromasia Marked; Lymphocytes % (A) 12 %; MCH 30.9 pg (25.0-35.0); MCHC 30.4 g/dL (31.0-37.0); MCV 101.8 fL (80.0-100.0); Macrocytosis Moderate; Mean Platelet Volume 10.6; Monocytes # (A) 0.3 k/uL (0-1.0); Monocytes % (A) 4 %; Neutrophils # (A) 6.8 k/uL (1.3-7.7); Neutrophils % (A) 81 %; Platelet Count 239 k/uL (150-450); Poikilocytosis Slight; RBC 2.71 m/uL (3.80-5.40); RDW 20.3 % (11.5-15.5); WBC 8.4 k/uL (3.8-10.6)
[2022-07-10] MEDS ORDERED: Potassium Replacement Protocol 1 EACH MISC MISCELLANE PRN ×2 (12:10→14:23)
[2022-07-10] MEDS ORDERED: Magnesium Replacement Protocol 1 EACH MISC MISCELLANE PRN ×2 (12:10→14:24)
[2022-07-10] MEDS: METOPROLOL SUCCINATE (ER) 25 MG TAB.ER.24H PO SCH (12:37)
--- NOTE | 2022-07-10 12:39 | P.PN ---
Subjective Progress Note Date: 07/10/22 Patient presents with existing heart disease and gallbladder disease. She is tolerating oatmeal and brown sugar this morning. Family is at bedside. Patient on blood thinner. Patient to be discharged home with outpatient cholecystectomy. Objective - Vital Signs Vital signs: Vital Signs Temp 97.7 F 07/10/22 03:10 Pulse 86 07/10/22 08:00 Resp 16 07/10/22 08:00 BP 91/49 07/10/22 08:00 Pulse Ox 94 L 07/10/22 08:25 FiO2 Intake & Output 07/09/22 07/10/22 07/10/22 18:59 06:59 18:59 Intake Total 358 Balance 358 Intake: Oral 358 Other: Voiding Method Bedpan Bedpan Bedpan Diaper Diaper Diaper # Voids 1 # Bowel Movements 1 - Labs CBC & Chem 7: 07/10/22 10:43 07/09/22 07:51 Labs: Abnormal Lab Results - Last 24 Hours (Table) 07/10/22 Range/Units 10:43 RBC 2.71 L (3.80-5.40) m/uL Hgb 8.4 L (11.4-16.0) gm/dL Hct 27.6 L (34.0-46.0) % MCV 101.8 H (80.0-100.0) fL MCHC 30.4 L (31.0-37.0) g/dL RDW 20.3 H (11.5-15.5) %
--- NOTE | 2022-07-10 13:51 | P.PN ---
Subjective Progress Note Date: 07/10/22 Patient's states she is doing well no complaints. She denies chest pain or increased shortness of breath. Continue to hold diuretics until cleared by nephrology. Will continue to hold Eliquis until okay to restart by surgery, per surgery's note patient is able to start Eliquis [id number]. There was some question about restarting her request due to frequent falls. Objective - Vital Signs Vital signs: Vital Signs Temp 97.7 F 07/10/22 03:10 Pulse 77 07/10/22 12:00 Resp 16 07/10/22 12:00 BP 102/61 07/10/22 12:00 Pulse Ox 93 L 07/10/22 12:00 FiO2 Intake & Output 07/09/22 07/10/22 07/10/22 18:59 06:59 18:59 Intake Total 358 Balance 358 Intake: Oral 358 Other: Voiding Method Bedpan Bedpan Bedpan Diaper Diaper Diaper # Voids 1 2 # Bowel Movements 1 2 - Exam PHYSICAL EXAM: VITAL SIGNS: Reviewed. GENERAL: Well-developed in no acute distress. HEENT: Head is normocephalic. Pupils are equal, round. Sclerae anicteric. Mucous membranes of the mouth are moist. NECK: Supple. No JVD or thyromegaly RESPIRATORY: Respirations even and unlabored. Lungs diminished to auscultation bilaterally. CARDIO: Regular rate and rhythm. S1 and S2 heard. No murmur or gallops. EXTREMITIES: Normal range of motion. No clubbing or cyanosis. Peripheral pulses intact. Negative for bilateral lower extremity edema NEURO: Orientated to person, time, mood is appropriate - Labs CBC & Chem 7: 07/10/22 10:43 07/09/22 07:51 Labs: Abnormal Lab Results - Last 24 Hours (Table) 07/10/22 Range/Units 10:43 RBC 2.71 L (3.80-5.40) m/uL Hgb 8.4 L (11.4-16.0) gm/dL Hct 27.6 L (34.0-46.0) % MCV 101.8 H (80.0-100.0) fL MCHC 30.4 L (31.0-37.0) g/dL RDW 20.3 H (11.5-15.5) % Assessment and Plan Assessment: Chronic congestive heart failure, currently volume Depleted Pulmonary hypertension Atrial fibrillation Hypotension Plan: Continue with all current cardiac medications. Continue to hold Eliquis until okay to start by surgery Conitue to hold diuretics until cleared by nephrology Further recommendations based on clinical course The above impression and plan of care have been discussed and directed by the signing physician. Abigail Wilson, nurse practitioner, acting as scribe for signing physician. .
[2022-07-10] MEDS ORDERED: POTASSIUM CHLORIDE 20 MEQ in WATER FOR INJECTION 1 100ML.BAG IVPB SCH (14:30)
[2022-07-10] MEDS ORDERED: MAGNESIUM SULFATE-D5W PMX 1 GM in DEXTROSE/WATER 1 100ML.BAG IVPB SCH (14:30)
--- NOTE | 2022-07-10 21:04 | PN ---
PROGRESS NOTE DATE OF SERVICE: 07/10/2022 I am covering for Dr. Toth. SUBJECTIVE: This 77-year-old woman, who was admitted with GI bleed, also had cholecystitis. Surgery is following the patient closely. No fever. No cough. OBJECTIVE: VITAL SIGNS: Pulse is 88, blood pressure 106/76, respirations 20. CHEST: Clear to auscultation. CARDIOVASCULAR: S1, S2. ABDOMEN: Soft. NERVOUS SYSTEM: NTD LABORATORY DATA: Reviewed. Hemoglobin 8.4. ASSESSMENT: 1. Gastrointestinal bleed with melena. 2. Acute on chronic cholecystitis. 3. Anemia. 4. Constipation. 5. History of diverticulosis. RECOMMENDATIONS: I recommend to continue current medications and symptomatic treatment. Otherwise, I would recommend repeat labs and replace lytes and potassium. Closely follow with surgery. Prognosis guarded. Further recommendations to follow. ISAL / JAIDAN: [id number] / MTDD
[2022-07-11] MEDS: SUCRALFATE 1 GM TAB PO SCH ×3 (06:25→16:28)
[2022-07-11] MEDS: SYMBICORT 160-4.5 MCG INHALER INHALATION SCH ×2 (07:24→20:52)
[2022-07-11 09:44] LABS: Anisocytosis Moderate; Basophils # (A) 0.1 k/uL (0-0.2); Basophils % (A) 1 %; Eosinophils # (A) 0.1 k/uL (0-0.7); Eosinophils % (A) 1 %; HCT 27.7 % (34.0-46.0); HGB 8.3 gm/dL (11.4-16.0); Hypochromasia Marked; Lymphocytes % (A) 13 %; MCH 30.5 pg (25.0-35.0); MCHC 30.1 g/dL (31.0-37.0); MCV 101.2 fL (80.0-100.0); Macrocytosis Moderate; Mean Platelet Volume 9.8; Monocytes # (A) 0.3 k/uL (0-1.0); Monocytes % (A) 4 %; Neutrophils # (A) 6.3 k/uL (1.3-7.7); Neutrophils % (A) 79 %; Platelet Count 245 k/uL (150-450); Poikilocytosis Slight; RBC 2.73 m/uL (3.80-5.40); RDW 20.1 % (11.5-15.5)
[2022-07-11 10:03] LABS: Calcium 8.2 mg/dL (8.4-10.2); Magnesium 2.3 mg/dL (1.6-2.3); Potassium 3.4 mmol/L (3.5-5.1)
[2022-07-11] MEDS: PIPERACILLIN-TAZOBACTAM 3.375 GM in SODIUM CHLORIDE 0.9% 100 ML IVPB SCH ×3 (10:14→23:48)
[2022-07-11] MEDS: MIDODRINE 5 MG TAB PO SCH ×3 (10:14→20:03)
[2022-07-11] MEDS: PANTOPRAZOLE 40 MG/10 ML VIAL IVP SCH ×2 (10:14→20:03)
[2022-07-11] MEDS: DOCUSATE 100 MG CAP PO SCH ×2 (10:14→20:01)
[2022-07-11] MEDS: ATORVASTATIN 40 MG TAB PO SCH (10:14)
[2022-07-11] MEDS: polyethylene glycoL 3350 17 GM POWD.PACK PO SCH ×3 (10:15→20:01)
[2022-07-11] MEDS: SILDENAFIL 20 MG TAB PO SCH ×3 (10:15→20:35)
[2022-07-11] MEDS: LACTOBACILLUS ACIDOPH & BULGAR 1 EACH PACKET PO SCH ×3 (10:15→20:04)
[2022-07-11] MEDS: METOPROLOL SUCCINATE (ER) 25 MG TAB.ER.24H PO SCH (11:38)
--- NOTE | 2022-07-11 12:20 | P.PN ---
Subjective Patient is seen for follow-up for acute kidney injury and top of chronic kidney disease. She has CKD stage III with baseline creatinine around 2 mg/dL secondary to nephrosclerosis. Patient was admitted to the hospital with increased weakness low blood pressure and severe anemia with hemoglobin of 6.8 g/dL. She has underlying GI bleed. Hemoglobin stable around 8.4-7.9 Serum creatinine staying at about 2.2 -2.3 mg/dL it was 2.0 on 07/09/2022 No complaints today Systolic blood pressure staying in the 90s. Currently asymptomatic. Maintained on midodrine surgery planning cholecystectomy as outpatient. Objective - Vital Signs Vital signs: Vital Signs Temp 97.5 F L 07/11/22 08:00 Pulse 81 07/11/22 08:00 Resp 20 07/11/22 08:00 BP 111/64 07/11/22 08:00 Pulse Ox 96 07/11/22 08:00 FiO2 Intake & Output 07/10/22 07/11/22 07/11/22 18:59 06:59 18:59 Intake Total 598 480 Balance 598 480 Intake: Oral 598 480 Other: Voiding Method Bedpan Bedpan Bedpan Diaper Diaper Diaper # Voids 1 # Bowel Movements 1 1 - Exam Patient is awake, comfortable, in no acute distress Examination of the heart S1 and S2 Examination lungs decreased breath sounds at the bases Abdomen is soft nontender Examination lower extremity shows chronic skin changes, 1+ edema noted CHIEF JAILER exam grossly intact - Labs CBC & Chem 7: 07/11/22 09:05 07/11/22 09:05 Labs: Abnormal Lab Results - Last 24 Hours (Table) 07/11/22 07/11/22 Range/Units 09:05 09:05 RBC 2.73 L (3.80-5.40) m/uL Hgb 8.3 L (11.4-16.0) gm/dL Hct 27.7 L (34.0-46.0) % MCV 101.2 H (80.0-100.0) fL MCHC 30.1 L (31.0-37.0) g/dL RDW 20.1 H (11.5-15.5) % Sodium 133 L (137-145) mmol/L Potassium 3.4 L (3.5-5.1) mmol/L Carbon Dioxide 21 L (22-30) mmol/L BUN 46 H (7-17) mg/dL Creatinine 1.80 H (0.52-1.04) mg/dL Glucose 116 H (74-99) mg/dL Calcium 8.2 L (8.4-10.2) mg/dL Assessment and Plan Assessment: 1. Acute kidney injury secondary to ATN secondary to anemia and cardiorenal syndrome. Renal function fairly stable this admission. Creatinine 2.53, now staying around 2.3 to 2.2. No hydronephrosis noted on kidney ultrasound. 2. Chronic kidney disease stage IIIB with baseline creatinine near 2 secondary to nephrosclerosis and cardiorenal syndrome. 3. GI bleed status post blood transfusion. Surgery following. Receiving IV iron. Hemoglobin 8.6 as of 07/07/2022 4. Hypokalemia from poor intake and possibly intracellular shift because of large deficit. 5. Chronic diastolic CHF with mild to moderate mitral regurgitation, severe tricuspid regurgitation and pulmonary hypertension. 6. Severe constipation. 7. Anemia from GI bleed, with iron deficiency saturation is 4, dated 06/29/2022, status post IV iron Plan: resume low-dose loop diuretics Replace potassium
[2022-07-11] MEDS ORDERED: POTASSIUM CHLORIDE ER 20 MEQ TAB.ER PO STA (12:21)
[2022-07-11] MEDS: BUMETANIDE 1 MG TAB PO SCH (12:49)
--- NOTE | 2022-07-11 12:58 | P.PN ---
Subjective Progress Note Date: 07/11/22 Patient seen resting comfortably in bed in no signs of acute distress. She has no complaints. She denies increased shortness of breath or chest pain. Nephrology okay with restarting Bumex. Makedaquis remains on hold until tomorrow per GI. Family is concerned about restarting anticoagulation. Reports patient has frequent falls at home. At this time will hold anticoagulation. Patient will discuss restarting anticoagulation at follow-up. Patient will be discharged home tomorrow and follow-up with GI for outpatient cholecystectomy. Objective - Vital Signs Vital signs: Vital Signs Temp 97.6 F 07/11/22 12:00 Pulse 68 07/11/22 12:00 Resp 22 07/11/22 12:00 BP 111/58 07/11/22 12:00 Pulse Ox 96 07/11/22 12:00 FiO2 Intake & Output 07/10/22 07/11/22 07/11/22 18:59 06:59 18:59 Intake Total 598 480 Balance 598 480 Intake: Oral 598 480 Other: Voiding Method Bedpan Bedpan Bedpan Diaper Diaper Diaper # Voids 1 # Bowel Movements 1 1 - Exam PHYSICAL EXAM: VITAL SIGNS: Reviewed. GENERAL: Well-developed in no acute distress. HEENT: Head is normocephalic. Pupils are equal, round. Sclerae anicteric. Mucous membranes of the mouth are moist. NECK: Supple. No JVD or thyromegaly RESPIRATORY: Respirations even and unlabored. Lungs diminished to auscultation bilaterally. CARDIO: Regular rate and rhythm. S1 and S2 heard. No murmur or gallops. EXTREMITIES: Normal range of motion. No clubbing or cyanosis. Peripheral puls es intact. Negative for bilateral lower extremity edema NEURO: Orientated to person, time, mood is appropriate - Labs CBC & Chem 7: 07/11/22 09:05 07/11/22 09:05 Labs: Abnormal Lab Results - Last 24 Hours (Table) 07/11/22 07/11/22 Range/Units 09:05 09:05 RBC 2.73 L (3.80-5.40) m/uL Hgb 8.3 L (11.4-16.0) gm/dL Hct 27.7 L (34.0-46.0) % MCV 101.2 H (80.0-100.0) fL MCHC 30.1 L (31.0-37.0) g/dL RDW 20.1 H (11.5-15.5) % Sodium 133 L (137-145) mmol/L Potassium 3.4 L (3.5-5.1) mmol/L Carbon Dioxide 21 L (22-30) mmol/L BUN 46 H (7-17) mg/dL Creatinine 1.80 H (0.52-1.04) mg/dL Glucose 116 H (74-99) mg/dL Calcium 8.2 L (8.4-10.2) mg/dL Assessment and Plan Assessment: Chronic congestive heart failure, currently volume Depleted Pulmonary hypertension Atrial fibrillation Hypotension Plan: Continue with all current cardiac medications. Continue to hold Eliquis until follow-up Patient cleared by nephrology to restart diuretic, patient is on Bumex 1 mg daily Further recommendations based on clinical course The above impression and plan of care have been discussed and directed by the signing physician. Abigail Wilson, nurse practitioner, acting as scribe for signing physician. .
--- NOTE | 2022-07-11 13:30 | P.PN ---
Subjective Progress Note Date: 07/11/22 Patient clinically stable from pre-existing gastrointestinal bleeding. At this time, recommend medical stability. Outpatient cholecystectomy described. Patient cleared from a surgical standpoint for discharge. Objective - Vital Signs Vital signs: Vital Signs Temp 97.6 F 07/11/22 12:00 Pulse 68 07/11/22 12:00 Resp 22 07/11/22 12:00 BP 111/58 07/11/22 12:00 Pulse Ox 96 07/11/22 12:00 FiO2 Intake & Output 07/10/22 07/11/22 07/11/22 18:59 06:59 18:59 Intake Total 598 480 Balance 598 480 Intake: Oral 598 480 Other: Voiding Method Bedpan Bedpan Bedpan Diaper Diaper Diaper # Voids 1 # Bowel Movements 1 1 - Labs CBC & Chem 7: 07/11/22 09:05 07/11/22 09:05 Labs: Abnormal Lab Results - Last 24 Hours (Table) 07/11/22 07/11/22 Range/Units 09:05 09:05 RBC 2.73 L (3.80-5.40) m/uL Hgb 8.3 L (11.4-16.0) gm/dL Hct 27.7 L (34.0-46.0) % MCV 101.2 H (80.0-100.0) fL MCHC 30.1 L (31.0-37.0) g/dL RDW 20.1 H (11.5-15.5) % Sodium 133 L (137-145) mmol/L Potassium 3.4 L (3.5-5.1) mmol/L Carbon Dioxide 21 L (22-30) mmol/L BUN 46 H (7-17) mg/dL Creatinine 1.80 H (0.52-1.04) mg/dL Glucose 116 H (74-99) mg/dL Calcium 8.2 L (8.4-10.2) mg/dL
[2022-07-11] MEDS: POTASSIUM CHLORIDE ER 20 MEQ TAB.ER PO SCH ×2 (23:48)
--- NOTE | 2022-07-12 01:35 | PN ---
PROGRESS NOTE DATE OF SERVICE: 07/11/2022 I am covering for Dr. Toth. SUBJECTIVE: This 77-year-old woman is admitted with GI bleed was supposed to have procedure on Tuesday. Apparently Dr. Crooks is recommending cholecystomy as an outpatient. The patient has multiple complex medical issues. No chest pain. No palpitations. No fever. OBJECTIVE: VITAL SIGNS: Pulse is 68, blood pressure 111/58, respirations 20. HEENT: Normal conjunctivae. NECK: No carotid bruits. CARDIOVASCULAR: S1, S2. RESPIRATIONS: Diminished. ABDOMEN: Soft. NERVOUS SYSTEM: Nonfocal. LABORATORY DATA: Hemoglobin 8.3. ASSESSMENT: 1. Gastrointestinal bleed with melena. 2. Acute on chronic cholecystitis. 3. Anemia. 4. Constipation. 5. History of diverticulosis. RECOMMENDATIONS: Recommend to continue current management and medications. Repeat labs tomorrow. Monitor lytes and potassium closely and NERVOUS SYSTEM: Nonfocal. Yrn will follow tomorrow. Possible discharge home tomorrow with continued follow up with surgery and the rest of the consultants and primary physician. MMODL / IJN: [id number] /
[2022-07-12] MEDS: SUCRALFATE 1 GM TAB PO SCH ×2 (05:27→11:46)
[2022-07-12] MEDS: SYMBICORT 160-4.5 MCG INHALER INHALATION SCH (08:33)
[2022-07-12] MEDS: DOCUSATE 100 MG CAP PO SCH (08:34)
[2022-07-12] MEDS: polyethylene glycoL 3350 17 GM POWD.PACK PO SCH (08:34)
[2022-07-12] MEDS: PANTOPRAZOLE 40 MG/10 ML VIAL IVP SCH (08:39)
[2022-07-12] MEDS: MIDODRINE 5 MG TAB PO SCH (08:39)
[2022-07-12] MEDS: PIPERACILLIN-TAZOBACTAM 3.375 GM in SODIUM CHLORIDE 0.9% 100 ML IVPB SCH (08:39)
[2022-07-12] MEDS: BUMETANIDE 1 MG TAB PO SCH (08:40)
[2022-07-12] MEDS: ATORVASTATIN 40 MG TAB PO SCH (08:40)
[2022-07-12] MEDS: SILDENAFIL 20 MG TAB PO SCH (08:40)
[2022-07-12] MEDS: LACTOBACILLUS ACIDOPH & BULGAR 1 EACH PACKET PO SCH (08:40)
--- NOTE | 2022-07-12 09:42 | P.PN ---
Subjective Patient is seen in follow-up for acute kidney injury on chronic kidney disease. He has been voiding. Incontinent. Hemodynamically stable. On 5 L nasal cannula. Denies chest pain or shortness of breath. Wants to go home. Vital signs are stable. General: Awake. No acute distress. HEENT: Head exam is unremarkable. LUNGS: Breath sounds decreased. HEART: Rate and Rhythm are regular. ABDOMEN: Soft, no distention. EXTREMITITES: Trace edema. Objective - Vital Signs Vital signs: Vital Signs Temp 97.7 F 07/12/22 04:53 Pulse 87 07/12/22 04:53 Resp 20 07/12/22 04:53 BP 101/63 07/12/22 04:53 Pulse Ox 94 L 07/12/22 04:53 FiO2 Intake & Output 07/11/22 07/12/22 07/12/22 18:59 06:59 18:59 Intake Total 1200 600 Output Total 300 Balance 1200 300 Weight 62.9 kg Intake: IV 120 Invasive Line 4 20 Piperacillin-Tazobactam 3 100 .375 gm In Sodium Chloride 0.9% 100 ml @ 25 mls/hr IVPB Q12HR [facility] Rx #:[id number] Oral 1200 480 Output: Urine 300 Stool 0 Other: Voiding Method Bedpan Diaper Diaper Incontinent # Voids 2 1 # Bowel Movements 1 - Labs CBC & Chem 7: 07/11/22 09:05 07/11/22 20:36 Labs: Abnormal Lab Results - Last 24 Hours (Table) 07/11/22 07/11/22 Range/Units 09:05 09:05 RBC 2.73 L (3.80-5.40) m/uL Hgb 8.3 L (11.4-16.0) gm/dL Hct 27.7 L (34.0-46.0) % MCV 101.2 H (80.0-100.0) fL MCHC 30.1 L (31.0-37.0) g/dL RDW 20.1 H (11.5-15.5) % Sodium 133 L (137-145) mmol/L Potassium 3.4 L (3.5-5.1) mmol/L Carbon Dioxide 21 L (22-30) mmol/L BUN 46 H (7-17) mg/dL Creatinine 1.80 H (0.52-1.04) mg/dL Glucose 116 H (74-99) mg/dL Calcium 8.2 L (8.4-10.2) mg/dL Assessment and Plan Plan: Assessment: 1. Acute kidney injury secondary to ATN secondary to anemia and cardiorenal syndrome. Renal function a little better today. Creatinine 1.8 yesterday. No hydronephrosis noted on kidney ultrasound. 2. Chronic kidney disease stage IIIB with baseline creatinine near 2 secondary to nephrosclerosis and cardiorenal syndrome. 3. GI bleed status post blood transfusion. Surgery following. s/p IV iron. Hemoglobin 8.3 yesterday. Also component of anemia of chronic kidney disease. On Aranesp. 4. Hypokalemia from poor intake and diuresis. Replaced. 5. Chronic diastolic CHF with mild to moderate mitral regurgitation, severe tricuspid regurgitation and pulmonary hypertension. Plan: Maintain Bumex. Avoid nephrotoxins. Continue to monitor renal function and urine output.
[2022-07-12 11:06] VITALS: BP 110/72; RESP 19; TEMP 97.6
--- NOTE | 2022-07-12 11:26 | P.PN ---
Subjective This is a 77-year-old female with a known history of mild nonobstructive coronary artery disease, long standing persistent atrial fibrillation on caleb seun, severe pulmonary hypertension, severe mitral regurgitation, severe tricuspid regurgitation, PFO, dyslipidemia, history of pulmonary embolism, chronic respiratory failure, and hypertension. She follows we Dr. Goldman. We have been asked to see the patient for congestive heart failure. Patient ad mitted with anemia, acute on chronic heart failure. Patient seen and examined at bedside, no acute distress. She denies any shortness of breath or chest pain. Her vital signs are stable. No acute events overnight. Possible discharge today. Her anticoagulation is on hold. Bumex was started yesterday. PHYSICAL EXAMINATION Vitals reviewed CONSTITUTIONAL: No apparent distress. HEENT: Head is normocephalic. No JVD. CHEST EXAMINATION: Lungs are clear to auscultation. No chest wall tenderness is noted on palpation or with deep breathing. HEART EXAMINATION: Irregular rate and rhythm. S1, S2 heard. Systolic ejection murmur, +RV heave. ABDOMEN: Soft, nontender. Positive bowel sounds. EXTREMITIES: 2+ peripheral pulses, no lower extremity edema and no calf tenderness. NEUROLOGIC EXAMINATION: Patient is awake, alert and oriented x3. ASSESSMENT Acute blood loss anemia secondary to GI bleed, Biliary sludge, cholelithiasis with possible cholecystitis Acute on chronic heart failure with preserved ejection fraction Generalized weakness, multifactorial Severe pulmonary hypertension, previous echo 01/2022 with RVSP 123, improved to 75 05/05 however decrease may be related to RV failure History of lung disease Severe Mitral regurgitation Severe tricuspid regurgiation Acute on chronic kidney disease likely secondary to anemia Mild troponin elevation secondary to type II event in a patient with mild CAD in the past Long standing persistent atrial fibrillation s/p previous ablation was anticoagulated in the past, on hold at this time History of hypertension Hypotension PFO Mild CAD by cardiac catheterization in 2019 PLAN Anticoagulation on hold secondary to anemia, GI Bleed PO bumex has been restarted, continue Continue statin, beta thmoas and Revatio From a cardiology perspective, no further inpatient workup or changes at this time. Discharge per clearance from primary and other consultants. Follow up outpatient with Dr. Goldman. Please reach out with any further questions or concerns. Nurse practitioner note has been reviewed by physician. Signing provider agrees with the documented findings, assessment, and plan of care. Objective - Vital Signs Vital signs: Vital Signs Temp 97.6 F 07/12/22 08:00 Pulse 79 07/12/22 08:00 Resp 19 07/12/22 08:00 BP 110/72 07/12/22 08:00 Pulse Ox 98 07/12/22 08:00 FiO2 Intake & Output 07/11/22 07/12/22 07/12/22 18:59 06:59 18:59 Intake Total 1200 600 Output Total 300 Balance 1200 300 Weight 62.9 kg Intake: IV 120 Invasive Line 4 20 Piperacillin-Tazobactam 3 100 .375 gm In Sodium Chloride 0.9% 100 ml @ 25 mls/hr IVPB Q12HR [facility] Rx #:[id number] Oral 1200 480 Output: Urine 300 Stool 0 Other: Voiding Method Bedpan Diaper Diaper Diaper Incontinent Incontinent # Voids 2 1 # Bowel Movements 1 - Labs CBC & Chem 7: 07/11/22 09:05 07/11/22 20:36
[2022-07-12] MEDS: METOPROLOL SUCCINATE (ER) 25 MG TAB.ER.24H PO SCH (11:46)
[2022-07-12 11:53] VITALS: PULSE 74
--- NOTE | 2022-07-12 14:11 | P.PN ---
Subjective Progress Note Date: 07/12/22 CHIEF COMPLAINT: GI bleed HISTORY OF PRESENT ILLNESS: Patient sitting at bedside chair. She denies any a bdominal pain. She is having bowel movements. She denies any blood in her stools. Denies any nausea vomiting. She is tolerating diet. Afebrile. no new labs. last HGB 07/11 03/10. Patient is scheduled for discharge today Patient seen and examined with Dr. cao PHYSICAL EXAM: VITAL SIGNS: Reviewed. GENERAL: Well-developed in no acute distress. HEENT: No sclera icterus. Extraocular movements grossly intact. Moist buccal mucosa. Head is atraumatic, normocephalic. ABDOMEN: Soft. Nondistended. Nontender NEUROLOGIC: Alert and oriented. Cranial nerves II through XII grossly intact. ASSESSMENT: 1. Abdominal pain resolved 2. GI bleed with black stools improved 3. Acute on chronic cholecystitis. Right upper quadrant abdominal pain with sludge, pericholecystic fluid, gallbladder thickening and gallstones with positive [place] sign on ultrasound. 4. Constipation improved 5. History of diverticulosis PLAN: -Patient can be discharged from surgical standpoint -Recommend laparoscopic cholecystectomy outpatient when medically stable -Okay to resume Eliquis -Recommend repeating CBC in 3 days -Continue supportive care -Continue PPI -Continue low-fat diet -Continue good bowel regimen [employer] note has been reviewed by physician. Signing provider agrees with the documented findings, assessment, and plan of care. Objective - Vital Signs Vital signs: Vital Signs Temp 97.6 F 07/12/22 08:00 Pulse 74 07/12/22 11:53 Resp 19 07/12/22 08:00 BP 110/72 07/12/22 08:00 Pulse Ox 98 07/12/22 08:00 FiO2 Intake & Output 07/11/22 07/12/22 07/12/22 18:59 06:59 18:59 Intake Total 1200 600 Output Total 300 Balance 1200 300 Weight 62.9 kg Intake: IV 120 Invasive Line 4 20 Piperacillin-Tazobactam 3 100 .375 gm In Sodium Chloride 0.9% 100 ml @ 25 mls/hr IVPB Q12HR [facility] Rx #:[id number] Oral 1200 480 Output: Urine 300 Stool 0 Other: Voiding Method Bedpan Diaper Diaper Diaper Incontinent Incontinent # Voids 2 1 # Bowel Movements 1 - Labs CBC & Chem 7: 07/11/22 09:05 07/11/22 20:36
== END 2022-07-12 13:12 | disposition home health service (06) | DRG 377 ==
LOC: EC 13:48 → 3SCARD 16:21
PROVIDERS: ADMIT Family Medicine; ATTEND Family Medicine
PROC: 30233N1 Transfusion of Nonautologous Red Blood Cells into Peripheral Vein, Percutaneous Approach (ICD-10-PCS; principal; 2022-06-29)
DX: K57.91 Diverticulosis of intestine, part unspecified, without perforation or abscess with bleeding (principal); I21.A1 Myocardial infarction type 2; J96.21 Acute and chronic respiratory failure with hypoxia; I50.33 Acute on chronic diastolic (congestive) heart failure; N17.0 Acute kidney failure with tubular necrosis; K80.12 Calculus of gallbladder with acute and chronic cholecystitis without obstruction; E44.0 Moderate protein-calorie malnutrition; I13.0 Hypertensive heart and chronic kidney disease with heart failure and stage 1 through stage 4 chronic kidney disease, or unspecified chronic kidney disease; E87.1 Hypo-osmolality and hyponatremia; I48.11 Longstanding persistent atrial fibrillation; D62 Acute posthemorrhagic anemia; Q21.12 Patent foramen ovale; J84.9 Interstitial pulmonary disease, unspecified; Z68.1 Body mass index [BMI] 19.9 or less, adult; R18.8 Other ascites; I27.20 Pulmonary hypertension, unspecified; D63.1 Anemia in chronic kidney disease; K76.89 Other specified diseases of liver; I08.1 Rheumatic disorders of both mitral and tricuspid valves; N18.32 Chronic kidney disease, stage 3b; J43.9 Emphysema, unspecified; D50.9 Iron deficiency anemia, unspecified; I95.89 Other hypotension; Z99.81 Dependence on supplemental oxygen; W01.0XXA Fall on same level from slipping, tripping and stumbling without subsequent striking against object, initial encounter; E78.5 Hyperlipidemia, unspecified; M19.041 Primary osteoarthritis, right hand; M19.042 Primary osteoarthritis, left hand; I49.3 Ventricular premature depolarization; E87.6 Hypokalemia; I25.10 Atherosclerotic heart disease of native coronary artery without angina pectoris; Y92.009 Unspecified place in unspecified non-institutional (private) residence as the place of occurrence of the external cause; E86.0 Dehydration; E87.5 Hyperkalemia; M50.30 Other cervical disc degeneration, unspecified cervical region; S92.332A Displaced fracture of third metatarsal bone, left foot, initial encounter for closed fracture; S92.345A Nondisplaced fracture of fourth metatarsal bone, left foot, initial encounter for closed fracture; S92.512A Displaced fracture of proximal phalanx of left lesser toe(s), initial encounter for closed fracture; K59.00 Constipation, unspecified; R29.6 Repeated falls; G89.29 Other chronic pain; M54.50 Low back pain, unspecified; K52.9 Noninfective gastroenteritis and colitis, unspecified; Z98.61 Coronary angioplasty status; Z79.01 Long term (current) use of anticoagulants; Z79.899 Other long term (current) drug therapy; Z79.51 Long term (current) use of inhaled steroids; Z87.891 Personal history of nicotine dependence; Z87.19 Personal history of other diseases of the digestive system; Z86.16 Personal history of COVID-19; Z87.01 Personal history of pneumonia (recurrent); Z91.81 History of falling; Z86.711 Personal history of pulmonary embolism
CPT/HCPCS: 36415; 36600; 70450; 71046; 72125; 74018; 74176; 76700; 80048; 80053; 80061; 80069; 81003; 82272; 82805; 83540; 83550; 83735; 83880; 84132; 84133; 84484; 85025; 85027; 86850; 86900; 86901; 86920; 93005; 94640; 94760; 96360; 96361; 99291